=== PATIENT | male | born 1940 | race Caucasian/White ===

== ENCOUNTER → 2017-01-26 | Outpatient (CLI) | payer OTHER ==
[~2017-01-26] MED LIST: ASPI-461 PO; CHOL135C6 PO; CRG25 PO; CYAN1DRO PO; FENO134C2 PO; FURO-85 PO; GLYB5TAB8 PO; INSDGI SC; LACT1CAP6 PO; LOVAZA PO; MISCTAB78 PO; MRPSR30 PO; MULT1CHW18 PO; NRV/5 PO; OMEGCAP2 PO; ROSU20TA PO; RXC5 PO; SITA50TA3 PO
== END | disposition home or self-care (01) ==
LOC: C.PATHSPEC 17:18
PROVIDERS: ATTEND Urology
DX: C61 Malignant neoplasm of prostate (principal)

== ENCOUNTER → 2017-02-13 | Outpatient (CLI) | payer OTHER ==
--- NOTE | 2017-02-13 13:34 | DIAGNOSTIC IMAGING REPORT ---
WHOLE BODY BONE SCAN HISTORY: C61 Adenocarcinoma of prostate no latex allergy E X0D E [id number] RADIOTRACER: 26.2 mCi Tc-99m MDP STUDY/IMAGES: Planar anterior and posterior whole body imaging was performed 3 hours following the intravenous administration of radiotracer. COMPARISON: None. FINDINGS: Focal areas of radiotracer uptake seen within the bilateral AC joints, knees, ankles, and first MTP joints favors degenerative change. Vertical radiotracer uptake at the sternum consistent poststernotomy changes. Patchy areas of mild FDG uptake throughout the lumbar spine favors postoperative change. This is most pronounced at the L2 level. No additional sites of abnormal radiotracer uptake seen within the axial or appendicular skeleton. IMPRESSION: Scattered areas of radiotracer uptake as described above likely represent degenerative and/or postoperative change. No suspicious areas of radiotracer uptake identified to suggest metastatic disease. Electronically signed by: Salty Martinez M.D. 02/13/2017 1:32 PM Dictated Date/Time: 02/13/2017 1:29 PM
== END | disposition home or self-care (01) ==
LOC: C.NUCL 07:51
PROVIDERS: ATTEND Urology
DX: C61 Malignant neoplasm of prostate (principal)

== ENCOUNTER → 2017-04-18 | Outpatient (CLI) | payer OTHER ==
[~2017-04-18] MED LIST changes: -CHOL135C6 PO; -CYAN1DRO PO; -LACT1CAP6 PO; -LOVAZA PO; -MRPSR30 PO; -RXC5 PO
--- NOTE | 2017-04-18 15:59 | DIAGNOSTIC IMAGING REPORT ---
MRI OF THE PELVIS WITHOUT IV CONTRAST CLINICAL HISTORY: Prostate cancer. Space oar protocol. COMPARISON STUDY: Radiation treatment CT scan dated 04/11/2017. TECHNIQUE: MRI of the pelvis is performed utilizing various T2-weighted sequences in the axial and sagittal planes. IV contrast was not administered for this examination. The examination is degraded by motion artifact. FINDINGS: The prostate gland is enlarged and heterogeneous measuring 6.7 cm in transverse diameter. Median lobe hypertrophy is observed. There is nodularity seen throughout the gland. A T2 hypointense nodule is suggested in the right lobe and measures up to 2.0 cm. The seminal vesicles are normal as visualized. The space or material is present between the prostate gland and the rectum. There is approximately 1.7 cm of separation between the posterior prostate and the anterior wall of the rectum. The spacer gel extends approximately 5 cm in craniocaudal length. The bladder wall appears thickened and trabeculated, likely related to chronic outlet obstruction. The visualized bony structures of the pelvis are grossly unremarkable but incompletely assessed. No pelvic sidewall lymphadenopathy is identified. IMPRESSION: 1. The spacer material is in appropriate position, and there is approximately 1.7 cm separation between the prostate and the anterior wall of the rectum. 2. The prostate gland is enlarged and heterogeneous and there is evidence of chronic bladder outlet obstruction. 3. A T2 hypointense nodule is suggested in the right lobe of the prostate gland. Correlation with the patient's biopsy results will be required. Dictated: 04/18/2017 3:29 PM Transcribed: 04/18/2017 3:59 PM Justino Electronically signed by: Alejandro Sandoval M.D. 04/18/2017 4:05 PM Dictated Date/Time: 04/18/2017 3:29 PM
== END | disposition home or self-care (01) ==
LOC: C.MRI 13:32
PROVIDERS: ATTEND Physician Assistant Medical
DX: C61 Malignant neoplasm of prostate (principal); N40.0 Benign prostatic hyperplasia without lower urinary tract symptoms

== ENCOUNTER → 2017-07-13 | Outpatient (CLI) | payer OTHER ==
[2017-07-13 14:50] VITALS: BP 110/58; PULSE 48; TEMP 37; O2SAT 90
--- NOTE | 2017-07-13 15:41 | Radiation Oncology Follow-Up ---
Radiation Oncology Follow-Up Date of Visit Jul 13, 2017. Reason For Visit One-month follow-up and cancer survivorship care plan Radiation Completion Date 06/06/17 Diagnosis (1) Prostate cancer Status: Acute Onset Date: 01/26/2017 Location: right lobe of the prostate Histology Subtype: adenocarcinoma Stage: ll Permanent Comment: Rising PSA, pretreatment PSA 18.30 Status post ultrasound-guided biopsies 01/26/2017 Adenocarcinoma the prostate [place] 3+3 and 3+4 Prostate volume 52 Prostate density 0.351 Status post placement of gold fiducial markers and Space OAR 04/06/2017 Status post completion of radiation therapy with IMRT/IGRT VMAT hypo- fractionated therapy 06/06/2017. He received 7000 cGy Last Edited By: Ami León on Jun 12, 2017 10:47 History of Present Illness Mr. Yepez is without a family history of prostate cancer. He was found to have an elevated prostate-specific antigen drawn on 02/06/2017 with a value of 16.91. Patient was referred to Dr. Willis for further evaluation. His digital rectal exam revealed no evidence of induration. He ordered a repeat prostate-specific antigen which was drawn on 01/23/2017. This showed a persistent and further elevated prostate-specific antigen of 18.3. Because of these changes and after discussion of with the patient the patient was scheduled for ultrasound-guided biopsies on 01/26/2017. A total of 14 biopsies were taken. 2 biopsies from the left and right base and left mid gland and 2 biopsies in the left apex and one biopsy from the left anterior gland were benign. One of 2 biopsies from the right base were positive for adenocarcinoma [place] grade of 3+4 involving 30% of the core tissue sample with no perineural invasion identified. The [place] pattern 4 comprises 5% of the tumor present. 22 biopsies from the right apex were positive for adenocarcinoma [place] grade 3 +3 involving 20% and 5% of the core samples respectively with no perineural invasion identified. The single biopsy from the right anterior gland was positive for adenocarcinoma [place] grade 3+4 involving 45% of the core tissue sample with no perineural invasion identified. The [place] pattern 4 comprises 10% of the tumor volume. Therefore a total of 4 out of 14 biopsies were positive. All 4 biopsies were from the right gland. 2 of the 4 biopsies were [place] grade 3+3 in 2 of the biopsies were [place] grade 3+4. Case: [id number]. Dr. Willis scheduled a staging bone scan which was performed on 02/13/2017. There was some degenerative changes most pronounced at L-2 but no suspicious areas to suggest metastatic disease was appreciated. We were asked to see the patient to review with him the treatment options area is for this reason the patient was seen in referral. The options of treatment were reviewed with the patient. Ultimately his decision was to proceed with placement of gold fiducial markers/Space OAR. He then underwent treatment with IMRT/IGRT VMAT utilizing hypo-fractionation. He received 7000 cGy. This was completed on 06/06/2017. Interim History He's been doing well over this past month. He feels that he has had improvement in his urinary status. His AUA score did improve. It was 6. At the end of treatment he had an AUA score of 8. He completed expanded prostate cancer index composite for clinical practice and gave a score of one of 12 and urinary incontinence symptoms. He gave a score 1 of 12 and urinary irritation symptoms. He gave a score of one of 12 in bowel symptoms. He gave a score of 8 of 12 and sexual symptoms. To note he marked that this is not a problem. He gave a score of 0 of 12 and hormonal vitality symptoms. His total was 11 of 60. He did not require any medication to help with urination. He did not require hormone suppression. Allergies Coded Allergies: Cyclobenzaprine (Unverified Adverse Reaction, Unknown, disoriented & confused from [id number], 06/24/14) Home Medications Scheduled Amlodipine Besylate (Amlodipine Besylate), 5 MG PO DAILY Aspirin (Aspirin), 81 MG PO DAILY Carvedilol (Carvedilol), 25 MG PO BID Fenofibrate (Tricor ), 134 MG PO DAILY Furosemide (Lasix), 20 MG PO DAILY Glyburide (Micronase), 5 MG PO DAILY Insulin Glargine (Lantus), 30 UNITS SC QAM Insulin Glargine (Lantus), 26 UNITS SC QPM [facility] Natural Products (Osteo Bi-Flex Advanced Do), 1 TABS PO BID Multiple Vitamins W/ Minerals (Multivitamin Gummies Adul), 2 TAB PO DAILY [place]-3 Fatty Acids (Fish Oil), 2 CAP PO BID Rosuvastatin Calcium (Crestor), 20 MG PO DAILY Sitagliptin (Januvia), 50 MG PO DAILY Review of Systems Gastrointestinal: Symptoms: WNL Oral: Symptoms: No Problems Respiratory: Symptoms: WNL Urinary: Symptoms: WNL, Nocturia Comments: Nocturia x 2-4, See AUA & EPIC Skin: Symptoms: No Problems Additional Notes: He completed a distress management report and answered "no" to all questions. Physical Exam Vital Signs Date Time Temp Pulse Resp B/P (MAP) Pulse Ox O2 Delivery O2 Flow Rate FiO2 07/13/17 14:50 37.0 48 16 110/58 90 General Appearance: no apparent distress Eyes: normal inspection, EOMI ENT: normal ENT inspection Neck: no adenopathy, thyroid normal Respiratory/Chest: lungs clear, no respiratory distress, no accessory muscle use Cardiovascular: regular rate, rhythm, no gallop, no murmur Abdomen: non tender, soft Extremities: no pedal edema Skin: warm/dry Laboratory Studies Test 07/13/17 15:08 Assessment & Plan Plan: PSA was drawn today. He'll be notified as to results. Continue follow- up with his primary care physician and Dr. Tran. He'll be seeing Dr. Tran next month. Today we completed a cancer survivorship care plan. A copy of the document was given to the patient. He was given a survivorship booklet. We asked him to return to our office in 6 months. He may call our office if he has any questions or concerns in the interim. Total Time In Follow-Up I spent 20 minutes speaking to the patient and performing examination. I spent 20 minutes reviewing information, preparing the survivorship document, and completing this note. Copy To Jim Alvarez M.D.; Kemal Tran M.D.
== END ==
LOC: C.ONC 14:40
PROVIDERS: ATTEND Physician Assistant Medical
DX: Z08 Encounter for follow-up examination after completed treatment for malignant neoplasm (principal); Z92.3 Personal history of irradiation; Z85.46 Personal history of malignant neoplasm of prostate

== ENCOUNTER → 2018-01-10 | Outpatient (CLI) | payer OTHER ==
[~2018-01-10] MED LIST changes: +BUPR20DI TOP; +DULA0.5I SC
[2018-01-10 13:41] VITALS: BP 171/67; PULSE 64; TEMP 36.7; O2SAT 93
--- NOTE | 2018-01-11 07:47 | Radiation Oncology Follow-Up ---
Radiation Oncology Follow-Up Date of Visit Jan 10, 2018. Reason For Visit Six-month follow-up Radiation Completion Date Spaceoar, gold fiducials, and hypofractionation 06/06/17 Diagnosis (1) Prostate cancer Status: Acute Onset Date: 01/26/2017 Location: Right lobe of the prostate Histology Subtype: Adenocarcinoma Stage: ll (Biopsy stage) Permanent Comment: Rising PSA, pretreatment PSA 18.30 Status post ultrasound-guided biopsies 01/26/2017 Adenocarcinoma the prostate [place] 3+3 and 3+4 Prostate volume 52 Prostate density 0.351 Status post placement of gold fiducial markers and Space OAR 04/06/2017 No hormone suppression Status post completion of radiation therapy with IMRT/IGRT VMAT hypo- fractionated therapy 06/06/2017. He received 7000 cGy Last Edited By: Ami León on Jan 11, 2018 07:43 History of Present Illness Mr. Yepez is without a family history of prostate cancer. He was found to have an elevated prostate-specific antigen drawn on 02/06/2017 with a value of 16.91. Patient was referred to Dr. Willis for further evaluation. His digital rectal exam revealed no evidence of induration. He ordered a repeat prostate-specific antigen which was drawn on 01/23/2017. This showed a persistent and further elevated prostate-specific antigen of 18.3. Because of these changes and after discussion of with the patient the patient was scheduled for ultrasound-guided biopsies on 01/26/2017. A total of 14 biopsies were taken. 2 biopsies from the left and right base and left mid gland and 2 biopsies in the left apex and one biopsy from the left anterior gland were benign. One of 2 biopsies from the right base were positive for adenocarcinoma [place] grade of 3+4 involving 30% of the core tissue sample with no perineural invasion identified. The [place] pattern 4 comprises 5% of the tumor present. 22 biopsies from the right apex were positive for adenocarcinoma [place] grade 3 +3 involving 20% and 5% of the core samples respectively with no perineural invasion identified. The single biopsy from the right anterior gland was positive for adenocarcinoma [place] grade 3+4 involving 45% of the core tissue sample with no perineural invasion identified. The [place] pattern 4 comprises 10% of the tumor volume. Therefore a total of 4 out of 14 biopsies were positive. All 4 biopsies were from the right gland. 2 of the 4 biopsies were [place] grade 3+3 in 2 of the biopsies were [place] grade 3+4. Case: [id number]. Dr. Willis scheduled a staging bone scan which was performed on 02/13/2017. There was some degenerative changes most pronounced at L-2 but no suspicious areas to suggest metastatic disease was appreciated. We were asked to see the patient to review with him the treatment options area is for this reason the patient was seen in referral. The options of treatment were reviewed with the patient. Ultimately his decision was to proceed with placement of gold fiducial markers/Space OAR. He then underwent treatment with IMRT/IGRT VMAT utilizing hypo-fractionation. He received 7000 cGy. This was completed on 06/06/2017. Interim History He has been doing well over the past 6 months. Urinary status is stable. He gave an AUA score of 7.5. He completed and expanded prostate cancer index composite for clinical practice and gave a score of 1 of 12 and urinary incontinence symptoms. He gave a score of 1 of 12 and urinary irritation symptoms. He gave a score 3 of 12 and bowel symptoms. He gave a score of 6 of 12 and sexual symptoms. He gave a score of 1 of 12 and hormonal vitality symptoms. His total was 12 of 60. His last PSA was in June and was 2.500. This was improved from 18.30. Allergies Coded Allergies: Cyclobenzaprine (Unverified Adverse Reaction, Unknown, disoriented & confused from [id number], 06/24/14) Home Medications Scheduled Amlodipine Besylate (Amlodipine Besylate), 5 MG PO DAILY Aspirin (Aspirin), 81 MG PO DAILY Buprenorphine (Butrans), 1 PATCH TOP WK Carvedilol (Carvedilol), 25 MG PO BID Dulaglutide (Trulicity), 1.5 MG SC WK Fenofibrate (Tricor ), 134 MG PO DAILY Glyburide (Micronase), 5 MG PO DAILY Insulin Glargine (Lantus), 30 UNITS SC QAM Insulin Glargine (Lantus), 26 UNITS SC QPM [facility] Natural Products (Osteo Bi-Flex Advanced Do), 1 TABS PO BID Multiple Vitamins W/ Minerals (Multivitamin Gummies Adul), 2 TAB PO DAILY [place]-3 Fatty Acids (Fish Oil), 2 CAP PO BID Review of Systems Gastrointestinal: Symptoms: WNL GI Comments: Takes metamucil Oral: Symptoms: No Problems Respiratory: Symptoms: WNL Urinary: Symptoms: WNL Comments: 2 voids/night;Sometimes has trouble starting stream; Skin: Symptoms: No Problems Physical Exam Vital Signs Date Time Temp Pulse Resp B/P (MAP) Pulse Ox O2 Delivery O2 Flow Rate FiO2 01/10/18 13:41 36.7 64 16 171/67 93 Fatigue: None General Appearance: no apparent distress Eyes: normal inspection, EOMI ENT: normal ENT inspection, hearing grossly normal Respiratory/Chest: lungs clear, no respiratory distress, no accessory muscle use Cardiovascular: regular rate, rhythm, no gallop, no murmur Abdomen: non tender, soft, no organomegaly Anal / Rectum: Normal sphincter tone. Prostate is smooth without nodules. No rectal masses no rectal bleeding. Neurologic/Psychiatric: no motor/sensory deficits, alert, normal mood/affect Skin: warm/dry Lymphatic: no adenopathy Pain Management Patient Reports Pain: Yes Pain Location: Back Initial Pain Intensity: 4.0 Pain Management Plan He has chronic low back pain. For this he has prescriptive pain medication. Laboratory Laboratory Results: were reviewed, and pertinent findings noted below Laboratory Comments: Test 01/10/18 14:22 Prostate Specific Antigen 0.381 ng/ml (0.000-4.000) Pathology Pathology Results: were reviewed, and pertinent findings noted in HPI Imaging Imaging Studies: were reviewed, and pertinent findings noted in HPI Assessment & Plan Plan: He will be notified as to the results of his PSA. Continue regular follow -up with Dr. Tran and his primary care provider. We discussed that PSA should be checked every 6 months if not otherwise specified by Dr. Tran. We asked him to return to our office in 1 year. He may call if he has any questions or concerns in the interim. Total Time In Follow-Up I spent 20 minutes speaking to the patient in performing examination. I spent 15 minutes reviewing information and completing this note. Copy To Jim Alvarez M.D.; Kemal Tran M.D.
== END | disposition home or self-care (01) ==
LOC: C.ONC 13:35
PROVIDERS: ATTEND Physician Assistant Medical
DX: Z08 Encounter for follow-up examination after completed treatment for malignant neoplasm (principal); Z92.3 Personal history of irradiation; Z85.46 Personal history of malignant neoplasm of prostate

== ENCOUNTER 2018-05-02 07:22 | Day surgery (SDC) | payer OTHER ==
[2018-05-02] VITALS (7 sets, daily range): BP systolic 150–172; BP diastolic 71–82; PULSE 64–69; TEMP 36.7–37; O2SAT 91–95; Ht 170.2 cm; Wt 127.4 kg
[~2018-05-02] VITALS: Ht 170.2 cm; Wt 127.4 kg
[~2018-05-02 07:22] MED LIST changes: -FURO-85 PO; -ROSU20TA PO; -SITA50TA3 PO
--- NOTE | 2018-05-02 10:15 | DIAGNOSTIC IMAGING REPORT ---
LUMBAR SPINE WITH CLINICAL HISTORY: 78 years-old Male presenting with history of lumbar spinal fusion, CT myelogram. TECHNIQUE: Multidetector CT of the lumbar spine was performed after the attempted administration of intrathecal contrast IV contrast: None. A dose lowering technique was used consistent with the principles of ALARA (as low as reasonably achievable). COMPARISON: Plain radiographs from 04/18/2018. CT DOSE (mGy.cm): The estimated cumulative dose is 960.74 mGy.cm. FINDINGS: Tube Test Technician topogram: Posterior lumbar fusion hardware, median sternotomy wires, and fiducial markers in the prostate. Dextroscoliotic curvature of the lumbar spine centered at L3. Bilateral posterior transpedicular screw and tc fixation of L2-S1. Trace lucency surrounds the S1 screws. No significant heart or complication. No hardware breakage. Laminectomy defects of L2-L5. A bridging tc is noted at the level of L4-5. Extensive osseous fusion across the facet joints at the operative levels greater on the left though this does not bridge the L5-S1 level. An interbody spacer is noted at L5-S1. Contrast opacifies a seroma in the laminectomy bed. No intrathecal contrast is apparent. The surrounding the in the laminectomy bed measures 5.1 x 1.4 x 3.5 cm. Otherwise normal lordosis. Vertebral bodies maintain normal height and alignment. Significant intervertebral disc height loss at L1-2 with vacuum disc phenomenon and endplate cystic change consistent with adjacent level degenerative change. Vacuum disc phenomenon also apparent at T12-L1. Mild osseous neural foraminal narrowing at the operative levels. More significant osseous neural foraminal narrowing on the left at L1-2. Posterior bony spurring at L1-2 mildly narrows the spinal canal. Paraspinal soft tissues remarkable for atherosclerosis. Large calculus in the left renal pelvis (series 3 image 95). This measures over 3 cm in diameter. IMPRESSION: 1. Unsuccessful CT myelogram with opacification of a 5.1 x 1.4 x 3.5 cm seroma in the laminectomy bed. Further evaluation with MRI of the lumbar spine is recommended which could equally demonstrate cauda equina nerve roots. 2. Posterior lumbar fusion from L2 to S1 with laminectomy defects from L2 to L5. No significant hardware complication. 3. Multilevel degenerative changes and scoliosis with adjacent level degenerative change at L1-2 with left osseous neural foraminal narrowing. 4. Large calculus in the left renal pelvis. Electronically signed by: Simeon Oneal M.D. 05/02/2018 10:14 AM Dictated Date/Time: 05/02/2018 10:05 AM
--- NOTE | 2018-05-02 10:21 | DIAGNOSTIC IMAGING REPORT ---
MYELOGRAM,SUPER/INTER LUMBAR CLINICAL HISTORY: 78 years-old Male presenting with BACK PAIN. COMPARISON: 04/18/2018. PROCEDURE: The procedure, risks and benefits were discussed with the patient including the risk of spinal headache, bleeding and infection. The patient agreed to the procedure and informed written consent was obtained. The procedure was performed by Dr. Oneal following a timeout. The L3-4 interlaminar space was targeted. Skin overlying the space was prepped and draped in the usual aseptic fashion and local anesthesia was achieved with 1% lidocaine. Under intermittent fluoroscopic guidance, a 22-gauge x 5 in. Sprotte needle was inserted into the thecal sac. Colorless fluid was obtained, presumably CSF. Subsequently, Optiray 200 contrast was injected presumably intrathecal. After administration of 8 mL of contrast, injection was no longer possible due to resistance and the opacified region was not consistent with the thecal sac. Due to the presence of contrast within the needle, adjustment of the needle to confirm CSF return could not be performed. At this point, the procedure was terminated. The patient tolerated the procedure well. There were no immediate complications. Fluoroscopy dosage (mGy): Not available. Fluoroscopy time: 0.9 minutes. Number or time of fluoroscopic spot images: 3. IMPRESSION: 1. Unsuccessful fluoroscopic guided lumbar myelogram. Please see separately dictated CT myelogram for findings of contrast administration into a laminectomy bed seroma. Electronically signed by: Simeon Oneal M.D. 05/02/2018 10:20 AM Dictated Date/Time: 05/02/2018 10:16 AM
--- NOTE | 2018-05-02 10:24 | Discharge Instructions ---
Discharge Instructions Procedure Procedure Date: May 02, 2018. Reason for visit: Spinal Stenosis. Discharge Discharge Date: May 02, 2018. Discharge Diagnosis: Spinal stenosis; unsuccessful fluoroscopic guided lumbar myelogram Medications Restart Stopped Medication(s): Resume home meds Instructions Activity Recommendations: No limitations Return to School/Work: no limitations Recommended Home Diet: No Limitations Allergies Coded Allergies: Cyclobenzaprine (Unverified Adverse Reaction, Unknown, disoriented & confused from [id number], 05/02/18) Lukas Flores Recommendations: Call your doctor if: * Temperature above 101 degrees * Pain not relieved by pain medicine ordered * There is increased drainage or redness from any incision * You have any unanswered questions or concerns. Your Doctors Instructions noted above were prepared by provider Simeon Oneal. Patient Signature Section: Patient Instructions Signature Page Forest Yepez Patient (or Guardian) Signature/Date: I have read and understand the instructions given to me by my caregivers. Caregiver/RN/Doctor Signature/Date: The above-named patient and/or guardian has received patient instructions on this date. + Original Patient Signature Page (only) stays with chart. Please make copy for patient.
[2018-05-02] MEDS ORDERED: ACETAMINOPHEN 500 MG TAB PO PRN (10:30)
[2018-05-08] MEDS ORDERED: INSDGI SC ×2 (08:36)
[2018-05-08] MEDS ORDERED: GABA-113 PO (08:37)
[2018-05-08] MEDS ORDERED: ASCA500 PO (08:37)
== END 2018-05-02 12:10 | disposition home or self-care (01) ==
LOC: C.ACU 07:22
PROVIDERS: ATTEND Orthopaedic Surgery Orthopaedic Surgery of the Spine
DX: M48.061 Spinal stenosis, lumbar region without neurogenic claudication (principal)

== ENCOUNTER → 2018-05-11 | Outpatient (CLI) | payer OTHER ==
[~2018-05-11] MED LIST changes: +ASCA500 PO; -FENO134C2 PO; +GABA-113 PO
--- NOTE | 2018-05-11 10:19 | DIAGNOSTIC IMAGING REPORT ---
CHEST 2 VIEWS ROUTINE HISTORY: Preop. COMPARISON: Chest 06/23/2014. FINDINGS: The heart remains mildly enlarged. There are postoperative changes. The lungs are clear. No pleural effusions. No pneumothorax. IMPRESSION: No significant change compared to the prior study. No acute process. Stable mild cardiomegaly. Electronically signed by: Salty Martinez M.D. 05/11/2018 10:18 AM Dictated Date/Time: 05/11/2018 10:12 AM
[2018-05-11 12:47] LABS: INR 0.9 (0.9-1.1); PTT PATIENT 26.5 SECONDS (21.0-31.0)
== END | disposition home or self-care (01) ==
LOC: C.CPL 12:00
PROVIDERS: ATTEND Orthopaedic Surgery Orthopaedic Surgery of the Spine
DX: Z01.810 Encounter for preprocedural cardiovascular examination (principal); Z01.811 Encounter for preprocedural respiratory examination; Z01.812 Encounter for preprocedural laboratory examination; I44.0 Atrioventricular block, first degree; I45.10 Unspecified right bundle-branch block

== ENCOUNTER 2018-10-18 15:33 | Inpatient (IN) ==
[2018-10-18] MEDS ORDERED: NITROGLYCERIN SL 0.4 MG/TAB TAB SL PRN (17:53)
[2018-10-18] MEDS ORDERED: MoRPHine SULFATE 4 MG/ML 1 ML CARP\\VIAL IV PRN (17:53)
[2018-10-18] MEDS ORDERED: GLUCOSE 10 TABS/TUBE PO PRN (17:59)
[2018-10-18] MEDS ORDERED: CARBOHYDRATES FOR HYPOGLYCEMIA PO PRN (17:59)
[2018-10-18] MEDS ORDERED: GLUCAGON FOR INJ 1 MG VIAL SQ PRN (17:59)
[2018-10-18] MEDS ORDERED: GLUCOSE 40% GEL 15 GM TUBE PO PRN (17:59)
[2018-10-18 18:49] LABS: HCO3 ABG 25 mmol/L (19-24); Oxygen Saturation ABG 94.1 % (90-95); PCO2 ABG 61 mmHg (35-46); PO2 ABG 91 mm/Hg (80-95); pH ABG 7.24 (7.35-7.45)
[2018-10-18 18:50] LABS: Allen Test Pos (Pos)
[2018-10-18 18:58] LABS: Appearance Urine Turbid (Clear); Bacteria Urine Automated Negative (Negative); Bilirubin Urine Negative (Negative); Color Urine Yellow; Epithelial Cell Urine Auto 20-30 /lpf (0-5); Glucose Urine UA Negative (Negative); Ketones Urine Negative (Negative); Leukocyte Esterase Urine 3+ (Negative); Nitrite Urine Negative (Negative); Protein Urine Trace (Negative); Urobilinogen Urine Negative (Negative); WBC Urine Automated >30 /hpf (0-5)
--- NOTE | 2018-10-18 18:59 | History & Physical Report ---
Date of Service October 18, 2018 Assessment & Plan (1) Respiratory acidosis: Patient has repeat blood gas showing a respiratory acidosis with PCO2 of 61 and a pH of 7.24 is a non-anion gap acidosis which likely plans to believe this might be respiratory turner. Patient is obese and this could be based upon hypoventilation from obesity. He has no history of smoking that he relates. Patient be placed on BiPAP attempts to improve his monoxide and pH level repeat an ABG in the morning it is expected that his potassium will improve with his acidosis improving. I did spend 90 minutes of critical care time were spent on this patient in the unit talking to his family calling [facility] examining the patient reviewing records (2) Pyelonephritis: Patient reportedly has acute pyelonephritis of blood and urine cultures positive for E. coli cultures were not sent with his initial pack and I did personally phoned the [place] [facility] which they will fax the sensitivities back for the E. coli. We will put on cefepime renal dose adjusted until that time (3) Acute on chronic renal failure: Patient prevent presents with acute nonoliguric renal failure at this time with a BUN of 100 creatinine is 2.4 I did speak with Dr. Saenz cook mayonnaise tonight and he would suggest we place the patient on half-normal saline with bicarbonate will have a Woodson catheter to quantify urine output and repeat urinalysis to look for sediment. (4) Hydronephrosis with renal calculous obstruction: Reportedly the patient has mild hydronephrosis without complete obstruction seen at [facility] repeat ultrasound will be undertaken. Patient recently had an instrumentation and cystoscopy and lithotripsy with stent placement on October [address] Kevin Tran will be consulted in the morning (5) Anemia: Patient did did have reduction of his hemoglobin from 10 g 8g after his stay located hospital this was over the time span from October 16-. Certainly his elevation of his BUN could be from GI blood absorption he will be placed on Protonix 40 twice daily heme occult stools and have a hemoglobin checked at 0300 hrs. (6) Diabetes mellitus, type 2: Patient typically takes Lantus and Trulicity for blood pressure control there is some documentation that he may have may or may not be on glyburide also. He will be placed on Lantus and sliding scale his Lantus dose will be reduced given his renal dysfunction to 10 twice a day with sliding scale and carb coverage (7) Encephalopathy: Patient has encephalopathy initially was thought to be secondary to infectious etiologies or perhaps his acidosis however his upon arrival relates that he became altered after his cystoscopy where he was having falls at home and not able to walk. He was in a wheelchair for some time. He does have a history of recent back surgery in the fall 2018. He has no focal deficits and he is is globally confused upon my evaluation. His does not believe he is ever had any imaging of his brain a CT scan will be ordered (8) DVT prophylaxis: Given concerns of any intracranial issues SCDs will use this evening and if it is CT and is negative we will employ likely renal based heparin (9) Coronary artery disease: Patient has history of coronary artery disease will be maintained on his carvedilol and amlodipine aspirin was previously on his med reconciliation this would continue 81 mg daily History of Present Illness Primary Care Provider: Jim Alvarez M.D. Patient presented to [place] emergency department with left flank pain 1 week after having a lithotripsy and stent placement by Dr. Tran of his left kidney. The patient reportedly his stated had been confused since the lithotripsy at home where he been falling and been unable to walk. On arrival to the ER they were concerned the patient may have sepsis although his lactic acid was 0.8. He is white count was 12 he had no anion gap bicarb 22 but his BUN/creatinine was 76 and 1.49. Patient was brought to their facility hydrated with saline at 130 cc an hour given Zosyn initially and 1 dose of Solu-Medrol in the ER because you had some tachypnea and he was given duo nebs although he has no history of tobacco use. Over the 2 days a [facility] is creatinine went from 1.49-2.37, BUN from went from 76-103, there is no notation of melena, his hemoglobin did drop from 10 g to 8 g B was hydrated. White blood cell count came down from 12-10. Reportedly there was an E. coli cultures that were positive although these were not since I can easily see and I asked him to be recent by fax. According to the after this confusion episode which occurred after the cystoscopy the patient she cannot recall having had any cranial imaging and the CT scan is currently pending Upon my interaction with the patient he is pleasant he is confused he looks to have word searching problems he can have some light conversation. He has no focal deficits no facial droop no palmar drift Allergies Allergy/AdvReac Type Severity Reaction Status Date / Time cyclobenzaprine AdvReac Severe disoriented Verified 10/09/18 08:15 & confused from [id number] Home Medications Home Medications Medication Instructions Recorded Confirmed Type amlodipine 5 mg PO QAM 06/11/18 10/18/18 History aspirin [Aspir-81] 81 mg PO QAM 06/11/18 10/18/18 History carvedilol 25 mg PO BID 06/11/18 10/18/18 History dulaglutide [Trulicity] 1 dose SUBCUT WK 06/11/18 10/18/18 History glyburide 5 mg PO QAM 06/11/18 10/18/18 History insulin glargine 26 unit SUBCUT HS 06/11/18 10/18/18 History insulin glargine 30 unit SUBCUT QAM 06/11/18 10/18/18 History omega 0-ivy-ejk-fish oil [[place]-3] 1 dose PO BID 06/11/18 10/18/18 History glucosamine-chondroitin [Osteo 2 tab PO BID 08/23/18 10/18/18 History Bi-Flex] Justyna-C with Bioflavonoids 1 g PO BID 10/18/18 10/18/18 History mineral oil PO 10/18/18 History Past Med/Surg History Social History Current Living Situation: Spouse Current Living Situation Comment: CURRENTLY AT [facility] POST OP BACK FUSION 08/02/18 TILL 08/24/18 Other Information That Helps Us Care for You: No Feels Safe at Home: Yes Safety Concerns: Feels Safe At This Time Smoking Status: Never smoker Do You Dip or Chew Tobacco: No Second Hand Exposure: No Tobacco Cessation Education Requested by Patient: No Hx Alcohol Use: No Hx Substance Use: No Beliefs That Will Affect Care: None Communication Ability: Effective Vineyard Supervisor Required: No Review of Systems ROS: Weak tired left flank pain No double vision blurry vision No problems with swallowing word finding issues No palpitations, chest pain or pressure No Wheezing or breathing issues by his complaint reportedly was tachypnea on presentation located in Left flank pain but no nausea vomiting diarrhea changes in appetite or weight No burning urine urine frequency or changes in color No focal joint pain or muscle pain No skin rashes or oral lesions No unusual bruising or bleeding No focused back pain or numbness or loss of strength Poorly more confused since 09 October Physical Exam 2 Vital Signs (Past 24 Hours): The patient appeared well nourished and normally developed. He is morbidly obese he does not appear to be in any significant distress Vital signs as documented. Head exam is unremarkable. normocephalic, atraumatic PERRLA EOMI oropharynx is clear is no exudate Neck is without jugular venous distension, thyromegaly, or lymphademopathy Lungs are clear generally poor air movement no wheezes Cardiac exam reveals Rhythm is regular. First and second heart sounds normal. Abdominal exam reveals normal bowel sounds, no masses, no organomegaly he is distended and tympanitic but not tender or guarding Extremities are only with trace edema bilateral lower extremities and both pedal pulses are present Neurologic exam is A&Ox1 he notes is in the hospital but does not no wheezing [place], no focal deficits, strength is equal bilateral no facial droop no palmar drift no decrease in strength of arms or legs Psychologically he is aware of his deficits and frustrated Skin is warm Dry without bruises or lesions
[2018-10-18] MEDS ORDERED: SODIUM CHLORIDE 0.9% 1000ML 1,000 ML IV SCH (19:00)
[2018-10-18 19:02] LABS: BUN Creatinine Ratio 41.5 (10-20); Blood Urea Nitrogen 105 mg/dl (7-18); Calcium 8.2 mg/dl (8.5-10.1); Carbon Dioxide 24 mmol/L (21-32); Chloride 107 mmol/L (98-107); Est GFR (African American) 27.3; Est GFR (Non-African American) 23.5; Glucose 132 mg/dl (70-99); Potassium 5.7 mmol/L (3.5-5.1); Sodium 138 mmol/L (136-145)
[2018-10-18 19:14] LABS: Calcium Oxalate Crystals Urine Present (None Prsent)
--- NOTE | 2018-10-18 19:59 | CT Scan Report ---
CT head/brain wo con CLINICAL HISTORY: 78 years-old Male with eval for stroke. Acute strokelike symptoms TECHNIQUE: Multiple axial CT images of the head were obtained without contrast. A dose lowering tech nique was utilized adhering to the principles of ALARA. CT DOSE: 1642.00 mGycm COMPARISON: None. FINDINGS: Motion degraded exam. No acute intracranial hemorrhage, midline shift, intracranial mass, hydrocephal us, territorial ischemia or abnormal extra-axial collection. Ill-defined hypodensities about the whit e matter suggest chronic microvascular ischemic changes. Cerebral vascular calcifications also noted. Mild age-related involutional changes. The calvarium is intact. Mild mucosal thickening of the posterior ethmoid air cells. Mastoid air sara ls and remaining paranasal sinuses appear generally clear. The soft tissues and orbits are unremarkab le. IMPRESSION: Motion degraded exam without acute intracranial abnormality identified. The above report was generated using voice recognition software. It may contain grammatical, syntax o r spelling errors. Electronically signed by: Ian Smyth M.D. 10/18/2018 7:58 PM
--- NOTE | 2018-10-18 20:39 | Ultrasound Report ---
US renal/blad retro comp HISTORY: 78 years-old Male eval for hyro and possible pyleo acute bilateral flank pain COMPARISON: CT abdomen and pelvis 08/06/2018 TECHNIQUE: Multiple real-time sonographic images of the kidneys and urinary bladder were obtained ass essing grayscale appearance and color flow FINDINGS: Right kidney measures 13.4 cm in length and demonstrates mild diffuse cortical thinning without renal calculi, hydronephrosis or suspicious mass lesions. Left kidney measures 13.8 cm in length and demonstrates mild hydronephrosis and minimal diffuse corti gwendolyn thinning. There are several echogenicities with posterior acoustic shadowing noted about the left kidney measuring up to 1.0 cm suggestive of nephrolithiasis. Previously described left ureteral sten t is not definitively seen. Woodson catheter noted within a decompressed or bladder lumen. There is suggestion of mild intrahepatic biliary ductal prominence. IMPRESSION: 1. Mild left-sided hydronephrosis with multiple nonobstructing renal calculi noted. 2. Unremarkable sonographic appearance of the right kidney. 3. Decompressed urinary bladder with Woodson catheter in place. The above report was generated using voice recognition software. It may contain grammatical, syntax o r spelling errors. Electronically signed by: Ian Smyth M.D. 10/18/2018 8:38 PM
[2018-10-18] MEDS: CARVEDILOL 25 MG TAB PO SCH (20:51)
[2018-10-18] MEDS: SODIUM BICARBONATE 8.4% 75 MEQ in SODIUM CHLORIDE 0.45 % 1,000 ML IV SCH (21:00)
[2018-10-18] MEDS: CEFEPIME 1,000 MG in SYRINGE 0 ML IV SCH ×2 (21:30→21:44)
[2018-10-18] MEDS: PANTOprazole 40 MG in SYRINGE 0 ML IV SCH (21:30)
[2018-10-18] MEDS: INSULIN GLARGINE SOLOSTAR 100 UNITS/ML 3 ML PEN SC SCH (21:54)
[2018-10-18] MEDS: INSULIN ASPART 100 UNITS/ML 3 ML PEN SC SCH (21:54)
[2018-10-18] MEDS ORDERED: INFLUENZA VACCINE HIGH DOSE 65+ 0.5 ML SYR IM ONE (22:00)
[2018-10-18] MEDS ORDERED: INFLUENZA ADMINISTRATION CHARGE ONE (22:00)
[2018-10-18] MEDS ORDERED: PNEUMOCOCCAL POLYSACCHARIDES 25 MCG/0.5 ML VIAL/SYR IM ONE (22:00)
[2018-10-18] MEDS ORDERED: PNEUMOCOCCAL ADMINISTRATION CHARGE ONE (22:00)
[2018-10-18] MEDS ORDERED: LORazepam 0.5 MG/1 ML VIAL IV PRN (23:33)
[2018-10-19 03:31] LABS: Hematocrit (blood only) 29.1 % (42-52); Hemoglobin 8.7 g/dL (14.0-18.0); Mean Corpuscular Hgb Conc 29.9 g/dL (32-36); Mean Corpuscular Volume 91.5 fL (80-100); Mean Platelet Volume 9.9 fL (7.4-10.4); Nucleated RBC # (auto) 0.05 K/uL (0-0); Nucleated RBC % (auto) 0.5 %; Platelet Count 267 K/uL (130-400); RDW Coefficient of Variation 17.2 % (11.5-14.5); RDW Standard Deviation 57.1 fL (36.4-46.3); Red Blood Count 3.18 M/uL (4.7-6.1); White Blood Count 10.19 K/uL (4.8-10.8)
[2018-10-19 03:32] LABS: BUN Creatinine Ratio 43.3 (10-20); Calcium 8.3 mg/dl (8.5-10.1); Est GFR (African American) 31.3; Potassium 5.2 mmol/L (3.5-5.1)
[2018-10-19 05:55] LABS: Estimated Average Glucose 177 mg/dl
[2018-10-19] MEDS: SODIUM BICARBONATE 8.4% 75 MEQ in SODIUM CHLORIDE 0.45 % 1,000 ML IV SCH ×3 (06:17→23:40)
--- NOTE | 2018-10-19 07:31 | Hospitalist Progress Note ---
Date of Service October 19, 2018 Assessment & Plan (1) Respiratory acidosis: Patient blood gas showing a respiratory acidosis with PCO2 of 61 and a pH of 7.24 is a non-anion gap acidosis. The patient was placed on BiPAP ABG pending. He does not be appear to be in respiratory distress (2) Pyelonephritis: Patient reportedly has acute pyelonephritis of blood and urine cultures positive for E. coli cultures initiated on cefepime renal dose adjusted until that time. Ultrasound does not show obstruction of the left ureter just some residual stone debris (3) Acute on chronic renal failure: Patient prevent presents with acute nonoliguric renal failure at this time with a BUN of 100 creatinine is 2.4 patient was maintained on half-normal saline with 75 mEq of sodium bicarbonate in it. Overnight his his BUN only reduced to 98 creatinine is about the same at 2.26 (4) Hydronephrosis with renal calculous obstruction: Reportedly the patient has mild hydronephrosis without complete obstruction seen at [facility] repeat ultrasound there is also significant abnormalities there is some mild hydronephrosis and residual stone debris we will consult Dr. Tran (5) Anemia: Patient's hemoglobin is 8.7 here will follow this for stability.. Certainly his elevation of his BUN could be from GI blood absorption he will be placed on Protonix 40 twice daily heme occult stools and have a hemoglobin checked at 0300 hrs. (6) Diabetes mellitus, type 2: Patient typically takes Lantus and Trulicity for blood pressure control there is some documentation that he may have may or may not be on glyburide also. He will be placed on Lantus and sliding scale his glucoses have been low overnight will further reduce his Lantus dose but continue with sliding scale (7) Encephalopathy: Patient has encephalopathy initially was thought to be secondary to infectious etiologies or perhaps his acidosis however his upon arrival relates that he became altered after his cystoscopy where he was having falls at home and not able to walk. He was in a wheelchair for some time. He does have a history of recent back surgery in the fall 2018. His brain a CT scan did not show significant deficits (8) DVT prophylaxis: Given concerns of any intracranial issues SCDs will use this evening and if it is CT and is negative we will employ likely renal based heparin (9) Coronary artery disease: Patient has history of coronary artery disease will be maintained on his carvedilol and amlodipine aspirin was previously on his med reconciliation this would continue 81 mg daily Subjective pt remains confused this am on Bipap, hgb has been stable only minimal improvement with regard to his renal numbers Review of Systems ROS: well nourished well developed. Review of systems is clouded due to patient's altered cognitive status No double vision blurry vision No problems with speech or swallowing No palpitations, chest pain or pressure He claims to feel short of breath No abdominal pain nausea vomiting diarrhea changes in appetite or weight No burning urine urine frequency or changes in color claims to continue have left flank pain No focal joint pain or muscle pain No skin rashes or oral lesions No unusual bruising or bleeding No focused back pain or numbness or loss of strength Remains confused Physical Exam 2 Vital Signs (Past 24 Hours): Last Vital Signs Temp 36.7 C 10/19/18 07:14 Pulse 61 10/19/18 07:14 Resp 20 10/19/18 07:14 BP 138/55 L 10/19/18 07:14 Pulse Ox 92 10/19/18 07:14 The patient appeared well nourished and normally developed. Morbidly obese Vital signs as documented. Wearing BiPAP Head exam is unremarkable. normocephalic, atraumatic Neck is without jugular venous distension, thyromegaly, or lymphademopathy Lungs are coarse in all lung brush no diminished breath sounds no wheezes Cardiac exam reveals Rhythm is regular. First and second heart sounds normal. Abdominal exam reveals normal bowel sounds, no masses, no organomegaly still with some left CVA tenderness Extremities are mildly edematous and both pedal pulses are present Neurologic exam is A&Ox1 think she is in [place], no focal deficits, strength is equal bilateral Psychologically seems anxious and confused Skin is warm Dry without bruises or lesions
[2018-10-19 07:36] LABS: Allen Test Pos (Pos); HCO3 ABG 27 mmol/L (19-24); Oxygen Saturation ABG 91.4 % (90-95); PCO2 ABG 53 mmHg (35-46); PO2 ABG 76 mm/Hg (80-95); pH ABG 7.32 (7.35-7.45)
[2018-10-19] MEDS: DEXTROSE 50% 50 ML SYRINGE IV PRN ×2 (07:44→11:10)
[2018-10-19] MEDS: INSULIN ASPART 100 UNITS/ML 3 ML PEN SC SCH ×4 (08:26→20:07)
--- NOTE | 2018-10-19 09:09 | Urology Consultation ---
Date of Consultation October 19, 2018 Assessment & Plan (1) Nephrolithiasis, uric acid: (2) Pyelonephritis: (3) Acute on chronic renal failure: 78yoM s/p staged L URS/LL on 10/09, +UA, E.Coli bacteremia, acute delirium and respiratory decompensation. Worsening confusion/delirium post operatively, presented to [facility] then transferred to [facility] last evening for escalation of care. Left ureteral stent in place. Renal U/S reviewed: mild left hydro, tiny nonobstructive stone fragments present but largely debulked. Lawson placed in [place] per RN for acute urinary retention. Draining hazy yellow urine with crystals/sediment. Recommend maintain catheter for at least 10-14days. Appears patient status has decompensated since last evening. Agree to keep on broad spectrum abx as prescribed. Cr peaked at 2.52 yesterday and beginning to trend down. Appreciate nephrology's input. Will discuss with primary Urologist, Dr. Tran. Review records from [place], does not appear to have repeat abdominal imaging. Pt may benefit from CT abd/pelvis to assess for abscess formation vs infected spinal instrumentation. No surgical intervention at this time. Will continue to monitor and treat medically at this time. Thank you for allowing us to participate in the care of Mr. Yepez. We will continue to follow with primary service. Please see additional comments per my attending physician as indicated. History of Present Illness Reason for Consultation: S/p staged Left URS, LL with ureteral stent, complicated UTI, SRAVANI. Very large, obstructive 3cm x2cm L UPJ/ renal pelvic stone initially discovered during hospitalization for spine surgery mid-July. Acute stent placement performed on 08/06. Subsequent staged Left URS, LL with stent exchange on 09/04 and 10/09/[address] Tran to debulk large uric acid calculi. Preop UC&S positive for quinolone resistant E.Coli, treated with cefuroxime based on sensitivities. Tolerated procedure well. Discharged home in stable condition. Patient presented to [place] emergency department with left flank pain, confusion/disorientation and falls/ambulatory disfunction. CT negative for acute CVA. Per report patient was in acute retention at time of ED admission, lawson catheter in place. Two days in [place], noted progressive elevation of CR/BUN, some improved WBC. BC + E.coli through [facility]. Awaiting faxed report per primary team. Transferred to [facility] for escalation in care on 10/18 around 1900. History received from daytime RN as patient's status has appeared to decline overnight. Pt went from lightly confused to acute delirium associated with low BG which was appropriately corrected. However patient continues to be confused, requiring BIPAP for acidosis. Requiring 1:1 sitter for safety. Requesting Physician: Dr. Herring Attending Physician: Dino Herring MD History of Present Illness Mr. Yepez is a 78yo M established with Dr. Tran who presented to [facility] for acute mental status changes. Allergies Allergy/AdvReac Type Severity Reaction Status Date / Time cyclobenzaprine AdvReac Severe disoriented Verified 10/09/18 08:15 & confused from [id number] Home Medications Home Medications Medication Instructions Recorded Confirmed Type amlodipine 5 mg PO QAM 06/11/18 10/18/18 History aspirin [Aspir-81] 81 mg PO QAM 06/11/18 10/18/18 History carvedilol 25 mg PO BID 06/11/18 10/18/18 History dulaglutide [Trulicity] 1 dose SUBCUT WK 06/11/18 10/18/18 History glyburide 5 mg PO QAM 06/11/18 10/18/18 History insulin glargine 26 unit SUBCUT HS 06/11/18 10/18/18 History insulin glargine 30 unit SUBCUT QAM 06/11/18 10/18/18 History omega 0-elj-axz-fish oil [[place]-3] 1 dose PO BID 06/11/18 10/18/18 History glucosamine-chondroitin [Osteo 2 tab PO BID 08/23/18 10/18/18 History Bi-Flex] Justyna-C with Bioflavonoids 1 g PO BID 10/18/18 10/18/18 History mineral oil PO 10/18/18 History Patient History Medical History History of difficult intubation L2-S1 fusion 06/19/2014 - "poor visualization with MAC 4. Glidescope #4 utilized. Lg tongue with much soft tissue." Atrial fibrillation Anemia CHRONIC; BASELINE HGB 9-10 RANGE PER CHART REVIEW History of blood transfusion POST-OP CKD (chronic kidney disease) CREATININE BASELINE ~1.6 PER PCP History of atrial fibrillation S/P RADIOFREQUENCY ABLATION (2011) Dyslipidemia Prostate cancer (01/26/17) Hypertension Hx of atrial flutter 4:1 AV CONDUCTION Hx of sleep apnea NO DEVICE ("REFUSES CPAP") Diabetes mellitus, type 2 IDDM Osteoarthritis Spinal stenosis History of kidney stones Carotid artery stenosis S/P LEFT CEA (2006) Morbid obesity Coronary artery disease CABG x 2 (2006) Gout Hydronephrosis Surgical History H/O cardiac radiofrequency ablation S/P carotid endarterectomy LEFT (2006) S/P CABG x 2 (2006)- FRANCO-LAD; LAD-D1 SUB BRANCH History of cystoscopy WITH STENT= 08/06/18= MAC SEDATION AT [facility] History of open reduction and internal fixation (ORIF) procedure BILAT ANKLE - 1960'S History of lumbar fusion Family History Grandmother Diabetes Other Alzheimer disease Prostate cancer Social History Current Living Situation: Spouse Current Living Situation Comment: CURRENTLY AT [facility] POST OP BACK FUSION 08/02/18 TILL 08/24/18 Other Information That Helps Us Care for You: No Feels Safe at Home: Yes Safety Concerns: Feels Safe At This Time Smoking Status: Never smoker Do You Dip or Chew Tobacco: No Second Hand Exposure: No Tobacco Cessation Education Requested by Patient: No Hx Alcohol Use: No Hx Substance Use: No Beliefs That Will Affect Care: None Communication Ability: Effective Comb Setter Required: No Review of Systems unable to perform due to patient's acute delirium Physical Exam 2 Vital Signs (Past 24 Hours): Last Vital Signs Temp 36.7 C 10/19/18 07:14 Pulse 61 10/19/18 07:14 Resp 20 10/19/18 07:14 BP 138/55 L 10/19/18 07:14 Pulse Ox 92 10/19/18 07:14 Constitutional: + ill appearing and + obese Neck: trachea midline Respiratory: + labored breathing (requiring bipap); no tripod positioning Cardiovascular: Vessels: no JVD Gastrointestinal (Abdomen): Inspection/Auscultation: abdomen not distended Musculoskeletal: Head/Neck/Chest: normocephalic Skin: no rashes, warm and dry (in exposed areas) Neurologic: + confused Motor/Sensory: + tremor Psychiatric: Orientation: + not oriented x 3 and + uncooperative Eye Contact: + poor eye contact Genitourinary: lawson catheter draining hazy yellow with sediment
[2018-10-19] MEDS: CARVEDILOL 25 MG TAB PO SCH ×2 (10:35→20:06)
[2018-10-19] MEDS: ASPIRIN 81 MG ECTAB PO SCH (10:35)
[2018-10-19] MEDS: INSULIN GLARGINE SOLOSTAR 100 UNITS/ML 3 ML PEN SC SCH (10:36)
[2018-10-19] MEDS: AMLODIPINE BESYLATE 5 MG TAB PO SCH (10:36)
[2018-10-19] MEDS: ALLOPURINOL 300 MG TAB PO SCH (10:36)
[2018-10-19] MEDS: PANTOprazole 40 MG in SYRINGE 0 ML IV SCH ×2 (11:00→20:08)
--- NOTE | 2018-10-19 11:52 | Hospitalist Progress Note ---
Date of Service October 19, 2018 Assessment & Plan (1) Respiratory acidosis: Patient blood gas showing a respiratory acidosis with PCO2 of 61 and a pH of 7.24 is a non-anion gap acidosis. The patient was placed on BiPAP ABG pending. He does not be appear to be in respiratory distress (2) Pyelonephritis: Patient reportedly has acute pyelonephritis of blood and urine cultures positive for E. coli cultures initiated on cefepime renal dose adjusted until that time. Ultrasound does not show obstruction of the left ureter just some residual stone debris (3) Acute on chronic renal failure: acute on chronic kidney disease stage 3 Patient prevent presents with acute nonoliguric renal failure at this time with a BUN of 100 creatinine is 2.4 patient was maintained on half-normal saline with 75 mEq of sodium bicarbonate in it. Overnight his his BUN only reduced to 98 creatinine is about the same at 2.26 (4) Hydronephrosis with renal calculous obstruction: Reportedly the patient has mild hydronephrosis without complete obstruction seen at [facility] repeat ultrasound there is also significant abnormalities there is some mild hydronephrosis and residual stone debris we will consult Dr. Tran (5) Anemia: Patient's hemoglobin is 8.7 here will follow this for stability.. Certainly his elevation of his BUN could be from GI blood absorption he will be placed on Protonix 40 twice daily heme occult stools and have a hemoglobin checked at 0300 hrs. (6) Diabetes mellitus, type 2: Patient typically takes Lantus and Trulicity for blood pressure control there is some documentation that he may have may or may not be on glyburide also. He will be placed on Lantus and sliding scale his glucoses have been low overnight will further reduce his Lantus dose but continue with sliding scale (7) Encephalopathy: Patient has encephalopathy initially was thought to be secondary to infectious etiologies or perhaps his acidosis however his upon arrival relates that he became altered after his cystoscopy where he was having falls at home and not able to walk. He was in a wheelchair for some time. He does have a history of recent back surgery in the fall 2018. His brain a CT scan did not show significant deficits (8) DVT prophylaxis: Given concerns of any intracranial issues SCDs will use this evening and if it is CT and is negative we will employ likely renal based heparin (9) Coronary artery disease: Patient has history of coronary artery disease will be maintained on his carvedilol and amlodipine aspirin was previously on his med reconciliation this would continue 81 mg daily Physical Exam 2 Vital Signs (Past 24 Hours): Last Vital Signs Temp 36.7 C 10/19/18 07:14 Pulse 59 L 10/19/18 11:29 Resp 26 H 10/19/18 11:29 BP 151/56 H 10/19/18 11:29 Pulse Ox 91 10/19/18 11:29
[2018-10-19 14:30] LABS: HCO3 ABG 28 mmol/L (19-24); Oxygen Saturation ABG 92.6 % (90-95); PCO2 ABG 63 mmHg (35-46); PO2 ABG 77 mm/Hg (80-95); pH ABG 7.26 (7.35-7.45)
[2018-10-19 14:52] LABS: Allen Test Pos (Pos)
[2018-10-19 15:52] LABS: BUN Creatinine Ratio 52.7 (10-20); Bilirubin Direct 0.1 mg/dl (0-0.2); Calcium 8.3 mg/dl (8.5-10.1); Creatinine Clr Calc Pharmacy 47.3 ml/min; Est GFR (African American) 42.3; Est GFR (Non-African American) 36.5; Potassium 5.1 mmol/L (3.5-5.1)
[2018-10-19 15:55] LABS: Bilirubin,Total 0.2 mg/dl (0.2-1); Phosphorus 5.1 mg/dl (2.5-4.9); Total Protein 6.4 gm/dl (6.4-8.2)
--- NOTE | 2018-10-19 16:14 | Nephrology Consultation ---
Date of Consultation October 19, 2018 Assessment & Plan (1) Acute on chronic renal failure: -- Baseline creatinine ~1.3 mg/dL -- Non-oliguric -- Urine sediment notable for 3+ blood, >30 WBC, 5-10 RBC, epithelial cells, granular cast, calcium oxalate crystals and yeast. Repeat culture pending -- Clinical presentation consistent with prerenal azotemia related to decreased EAV as well as ATN -- Left ureteral stent in place and no significant evidence of persistent obstruction -- Woodson catheter remains intact due to urinary retention -- Creatinine is now showing early evidence of renal recovery -- Urology consultation reviewed -- Continue IVF with HCO3 @ 100 ml/hr to maintain slightly positive fluid balance -- Document I/O's -- Repeat metabolic profile tomorrow AM -- Medications are currently appropriately dosed for kidney dysfunction -- There is no current indication for DECALER -- Uremic encephalopathy is not considered likely -- BUN/creatinine are disproportionate and suspicion for a concurrent etiology for elevated BUN (such as GI bleed) should be maintained (2) Pyelonephritis: -- Blood and urine cultures from OSH reportedly positive for E coli -- Currently being treated with ceftriaxone (3) Nephrolithiasis, uric acid: (4) Respiratory acidosis: -- Improving with PPV (5) Atrial fibrillation: -- Edematous but no evidence of decompensated CHF (6) Encephalopathy: -- Unlikely to be acute uremic -- Certainly concerning for metabolic encephalopathy and complicated by sepsis, hypercarbia, renal failure and medications -- Close clinical monitoring and high index of suspicion for other causes is important -- Neurochecks frequently History of Present Illness Reason for Consultation: Acute on chronic renal insufficiency Requesting Physician: Dino Herring MD Attending Physician: Dino Herring MD History of Present Illness Mr. Forest Yepez is a 78-year-old male with obesity, coronary artery disease (history of CABG), diabetes mellitus, hypertension, spinal stenosis (history of lumbar fusion) and history of nephrolithiasis. He has evidence of CKD with a baseline creatinine of 1.1 to 1.3 mg/dL. A large obstructing left UPJ stone was discovered during hospitalization for spine surgery mid-July. Acute stent placement was performed on 08/06. Dr. Tran then performed subsequent staged left ureteroscopy with laser lithotripsy with stent exchange on 09/04 and 10/09/18. Stone analysis consistent with uric acid formation. There was a preoperative urine culture positive for quinolone resistant E.Coli, treated with cefuroxime. Forest unfortunately developed progressive mental status changes and recurrent falls at home after the surgery. He presented to the ED at [facility] for additional evaluation. Urinary retention was noted and Woodson placed. IVF provided with saline at a rate of 130 ml/hr. Laboratory studies were notable for acute renal insufficiency, leukocytosis. UA/culture consistent with E coli UTI. Blood cultures were also positive for E coli. Unfortunately, encephalopathy persists. Improvement in kidney function was not noted with treatment. The patient was transferred to [facility] yesterday evening for additional care. I discussed the case with Dr. Herring yesterday evening. The patient was started on an infusion of 1/2NS+75 mEq HCO3. He has been tolerating fluids well. He was found to be in acute hypercapneic respiratory failure and non-invasive positive pressure ventilation has been provided overnight. Unfortunately, the patient remained significantly encephalopathic this morning and unable to provide any medical history. A 1:1 assist was at the bedside. No significant improvement in the patient's mental status had been noted. Head CT was notably unremarkable. Forest is non-oliguric. Creatinine is showing early evidence of renal recovery at this time. Allergies Allergy/AdvReac Type Severity Reaction Status Date / Time cyclobenzaprine AdvReac Severe disoriented Verified 10/09/18 08:15 & confused from [id number] Home Medications Home Medications Medication Instructions Recorded Confirmed Type amlodipine 5 mg PO QAM 06/11/18 10/18/18 History aspirin [Aspir-81] 81 mg PO QAM 06/11/18 10/18/18 History carvedilol 25 mg PO BID 06/11/18 10/18/18 History dulaglutide [Trulicity] 1 dose SUBCUT WK 06/11/18 10/18/18 History glyburide 5 mg PO QAM 06/11/18 10/18/18 History insulin glargine 26 unit SUBCUT HS 06/11/18 10/18/18 History insulin glargine 30 unit SUBCUT QAM 06/11/18 10/18/18 History omega 8-rdy-xfl-fish oil [[place]-3] 1 dose PO BID 06/11/18 10/18/18 History glucosamine-chondroitin [Osteo 2 tab PO BID 08/23/18 10/18/18 History Bi-Flex] Justyna-C with Bioflavonoids 1 g PO BID 10/18/18 10/18/18 History mineral oil PO 10/18/18 History Patient History Medical History History of difficult intubation L2-S1 fusion 06/19/2014 - "poor visualization with MAC 4. Glidescope #4 utilized. Lg tongue with much soft tissue." Atrial fibrillation Anemia CHRONIC; BASELINE HGB 9-10 RANGE PER CHART REVIEW History of blood transfusion POST-OP CKD (chronic kidney disease) CREATININE BASELINE ~1.6 PER PCP History of atrial fibrillation S/P RADIOFREQUENCY ABLATION (2011) Dyslipidemia Prostate cancer (01/26/17) Hypertension Hx of atrial flutter 4:1 AV CONDUCTION Hx of sleep apnea NO DEVICE ("REFUSES CPAP") Diabetes mellitus, type 2 IDDM Osteoarthritis Spinal stenosis History of kidney stones Carotid artery stenosis S/P LEFT CEA (2006) Morbid obesity Coronary artery disease CABG x 2 (2006) Gout Hydronephrosis Surgical History H/O cardiac radiofrequency ablation S/P carotid endarterectomy LEFT (2006) S/P CABG x 2 (2006)- FRANCO-LAD; LAD-D1 SUB BRANCH History of cystoscopy WITH STENT= 08/06/18= MAC SEDATION AT [facility] History of open reduction and internal fixation (ORIF) procedure BILAT ANKLE - 1960'S History of lumbar fusion Family History Grandmother Diabetes Other Alzheimer disease Prostate cancer Social History Current Living Situation: Spouse Current [facility] Comment[facility] BACK FUSION 08/02/18 TILL 08/24/18 Other Information That Helps Us Care for You: No Feels Safe at Home: Yes Safety Concerns: Feels Safe At This Time Smoking Status: Never smoker Do You Dip or Chew Tobacco: No Second Hand Exposure: No Tobacco Cessation Education Requested by Patient: No Hx Alcohol Use: No Hx Substance Use: No Beliefs That Will Affect Care: None Communication Ability: Unable Review of Systems unable to obtain due to mental status Physical Exam 2 Vital Signs (Past 24 Hours): Last Vital Signs Temp 36.3 C L 10/19/18 15:29 Pulse 62 10/19/18 15:29 Resp 20 10/19/18 15:29 BP 157/46 H 10/19/18 15:29 Pulse Ox 93 10/19/18 15:29 Constitutional: + ill appearing and + obese Eyes: + anicteric sclerae and reactive pupils; no corneal abnormality ENMT: external ear and nose normal, oropharynx normal Neck: normal visual inspection, trachea midline and + thick neck Respiratory: + labored breathing (requiring bipap); no retractions Auscultation: lungs clear to auscultation bilaterally; no rales and no rhonchi Cardiovascular: Heart Sounds: normal S1 and normal S2; no gallop Vessels: no JVD Extremities: + edema Gastrointestinal (Abdomen): Inspection/Auscultation: + abdomen distended Percussion/Palpation: no guarding Musculoskeletal: Head/Neck/Chest: normocephalic Skin: no rashes, warm and dry (in exposed areas) Neurologic: + confused Motor/Sensory: no asterixis Psychiatric: Orientation: + not oriented x 3 and + uncooperative Eye Contact: + poor eye contact Genitourinary: Woodson draining clear yellow urine Results & Data Laboratory Results Laboratory Results - last 24 hr 10/18/18 10/18/18 10/18/18 18:30 18:35 18:35 WBC RBC Hgb Hct MCV MCH MCHC RDW Std Deviation RDW Coeff of Poly Plt Count MPV Absolute Nucleated RBC Nucleated RBC % (auto) ABG pH 7.24 L ABG pCO2 61 H ABG pO2 91 ABG HCO3 25 H ABG O2 Saturation 94.1 ABG Base Excess -2.7 Philipp Test Pos Barometric Pressure 725.6 Oxygen Given 3L O2 Sodium 138 Potassium 5.7 H Chloride 107 Carbon Dioxide 24 Anion Gap 7.0 BUN 105 H Creatinine 2.53 H Est Cr Clr Drug Dosing Not Reportable Est GFR ( Amer) 27.3 Est GFR (Non-Af Amer) 23.5 BUN/Creatinine Ratio 41.5 H Glucose 132 H POC Glucose Estimat Average Glucose Hemoglobin A1c Calcium 8.2 L Phosphorus Total Bilirubin Direct Bilirubin AST ALT Alkaline Phosphatase Total Protein Albumin Urine Color Yellow Urine Appearance Turbid H Urine pH 5.0 Ur Specific [place] 1.020 Urine Protein Trace H Urine Glucose (UA) Negative Urine Ketones Negative Urine Blood 3+ H Urine Nitrite Negative Urine Bilirubin Negative Urine Urobilinogen Negative Ur Leukocyte Esterase 3+ H Urine WBC (Auto) >30 H Urine RBC (Auto) 5-10 H U Hyaline Cast (Auto) 1-5 U Epithel Cells (Auto) 20-30 H Urine Bacteria (Auto) Negative Urine Crystals Calcium Oxalate H Calcium Oxalate Crystal Present H Urine Yeast Present H Blood Type Antibody Screen 10/18/18 10/19/18 10/19/18 20:44 02:57 02:57 WBC RBC Hgb Hct MCV MCH MCHC RDW Std Deviation RDW Coeff of Poly Plt Count MPV Absolute Nucleated RBC Nucleated RBC % (auto) ABG pH ABG pCO2 ABG pO2 ABG HCO3 ABG O2 Saturation ABG Base Excess Philipp Test Barometric Pressure Oxygen Given Sodium Potassium Chloride Carbon Dioxide Anion Gap BUN Creatinine Est Cr Clr Drug Dosing Est GFR ( Amer) Est GFR (Non-Af Amer) BUN/Creatinine Ratio Glucose POC Glucose 198 H Estimat Average Glucose 177 Hemoglobin A1c 7.8 H Calcium Phosphorus Total Bilirubin Direct Bilirubin AST ALT Alkaline Phosphatase Total Protein Albumin Urine Color Urine Appearance Urine pH Ur Specific [place] Urine Protein Urine Glucose (UA) Urine Ketones Urine Blood Urine Nitrite Urine Bilirubin Urine Urobilinogen Ur Leukocyte Esterase Urine WBC (Auto) Urine RBC (Auto) U Hyaline Cast (Auto) U Epithel Cells (Auto) Urine Bacteria (Auto) Urine Crystals Calcium Oxalate Crystal Urine Yeast Blood Type A Positive Antibody Screen NEGATIVE 10/19/18 10/19/18 10/19/18 02:57 02:57 07:24 WBC 10.19 RBC 3.18 L Hgb 8.7 L Hct 29.1 L MCV 91.5 MCH 27.4 MCHC 29.9 L RDW Std Deviation 57.1 H RDW Coeff of Poly 17.2 H Plt Count 267 MPV 9.9 Absolute Nucleated RBC 0.05 H Nucleated RBC % (auto) 0.5 ABG pH 7.32 L ABG pCO2 53 H ABG pO2 76 L ABG HCO3 27 H ABG O2 Saturation 91.4 ABG Base Excess 0.0 Philipp Test Pos Barometric Pressure 730.1 Oxygen Given 3 L Sodium 140 Potassium 5.2 H Chloride 111 H Carbon Dioxide 27 Anion Gap 2.0 L BUN 98 H Creatinine 2.26 H Est Cr Clr Drug Dosing 37.0 Est GFR ( Amer) 31.3 Est GFR (Non-Af Amer) 27.0 BUN/Creatinine Ratio 43.3 H Glucose 64 L POC Glucose Estimat Average Glucose Hemoglobin A1c Calcium 8.3 L Phosphorus Total Bilirubin Direct Bilirubin AST ALT Alkaline Phosphatase Total Protein Albumin Urine Color Urine Appearance Urine pH Ur Specific [place] Urine Protein Urine Glucose (UA) Urine Ketones Urine Blood Urine Nitrite Urine Bilirubin Urine Urobilinogen Ur Leukocyte Esterase Urine WBC (Auto) Urine RBC (Auto) U Hyaline Cast (Auto) U Epithel Cells (Auto) Urine Bacteria (Auto) Urine Crystals Calcium Oxalate Crystal Urine Yeast Blood Type Antibody Screen 10/19/18 10/19/18 10/19/18 07:37 07:38 07:59 WBC RBC Hgb Hct MCV MCH MCHC RDW Std Deviation RDW Coeff of Poly Plt Count MPV Absolute Nucleated RBC Nucleated RBC % (auto) ABG pH ABG pCO2 ABG pO2 ABG HCO3 ABG O2 Saturation ABG Base Excess Philipp Test Barometric Pressure Oxygen Given Sodium Potassium Chloride Carbon Dioxide Anion Gap BUN Creatinine Est Cr Clr Drug Dosing Est GFR ( Amer) Est GFR (Non-Af Amer) BUN/Creatinine Ratio Glucose POC Glucose 41 L* 40 L* 121 H Estimat Average Glucose Hemoglobin A1c Calcium Phosphorus Total Bilirubin Direct Bilirubin AST ALT Alkaline Phosphatase Total Protein Albumin Urine Color Urine Appearance Urine pH Ur Specific [place] Urine Protein Urine Glucose (UA) Urine Ketones Urine Blood Urine Nitrite Urine Bilirubin Urine Urobilinogen Ur Leukocyte Esterase Urine WBC (Auto) Urine RBC (Auto) U Hyaline Cast (Auto) U Epithel Cells (Auto) Urine Bacteria (Auto) Urine Crystals Calcium Oxalate Crystal Urine Yeast Blood Type Antibody Screen 10/19/18 10/19/18 10/19/18 10:56 10:58 11:26 WBC RBC Hgb Hct MCV MCH MCHC RDW Std Deviation RDW Coeff of Poly Plt Count MPV Absolute Nucleated RBC Nucleated RBC % (auto) ABG pH ABG pCO2 ABG pO2 ABG HCO3 ABG O2 Saturation ABG Base Excess Philipp Test Barometric Pressure Oxygen Given Sodium Potassium Chloride Carbon Dioxide Anion Gap BUN Creatinine Est Cr Clr Drug Dosing Est GFR ( Amer) Est GFR (Non-Af Amer) BUN/Creatinine Ratio Glucose POC Glucose 61 L* 69 L* 102 H Estimat Average Glucose Hemoglobin A1c Calcium Phosphorus Total Bilirubin Direct Bilirubin AST ALT Alkaline Phosphatase Total Protein Albumin Urine Color Urine Appearance Urine pH Ur Specific [place] Urine Protein Urine Glucose (UA) Urine Ketones Urine Blood Urine Nitrite Urine Bilirubin Urine Urobilinogen Ur Leukocyte Esterase Urine WBC (Auto) Urine RBC (Auto) U Hyaline Cast (Auto) U Epithel Cells (Auto) Urine Bacteria (Auto) Urine Crystals Calcium Oxalate Crystal Urine Yeast Blood Type Antibody Screen 10/19/18 10/19/18 10/19/18 14:10 15:14 15:35 WBC RBC Hgb Hct MCV MCH MCHC RDW Std Deviation RDW Coeff of Poly Plt Count MPV Absolute Nucleated RBC Nucleated RBC % (auto) ABG pH 7.26 L ABG pCO2 63 H ABG pO2 77 L ABG HCO3 28 H ABG O2 Saturation 92.6 ABG Base Excess -0.1 Philipp Test Pos Barometric Pressure 732.4 Oxygen Given 3 L Sodium 142 Potassium 5.1 Chloride 110 H Carbon Dioxide 25 Anion Gap 7.0 BUN 93 H Creatinine 1.76 H D Est Cr Clr Drug Dosing 47.3 Est GFR ( Amer) 42.3 Est GFR (Non-Af Amer) 36.5 BUN/Creatinine Ratio 52.7 H Glucose 93 POC Glucose 112 H Estimat Average Glucose Hemoglobin A1c Calcium 8.3 L Phosphorus 5.1 H Total Bilirubin 0.2 Direct Bilirubin 0.1 AST 13 L ALT 50 Alkaline Phosphatase 150 H Total Protein 6.4 Albumin 2.0 L Urine Color Urine Appearance Urine pH Ur Specific [place] Urine Protein Urine Glucose (UA) Urine Ketones Urine Blood Urine Nitrite Urine Bilirubin Urine Urobilinogen Ur Leukocyte Esterase Urine WBC (Auto) Urine RBC (Auto) U Hyaline Cast (Auto) U Epithel Cells (Auto) Urine Bacteria (Auto) Urine Crystals Calcium Oxalate Crystal Urine Yeast Blood Type Antibody Screen
--- NOTE | 2018-10-19 17:58 | Pulmonary Consultation ---
Date of Consultation October 19, 2018 Assessment & Plan (1) Respiratory acidosis: Impression: 1. The patient definitely has severe obstructive sleep apnea, declined BiPAP and oxygen as an outpatient. 2. Acute on chronic hypercapnic respiratory failure, compromised by the loss of the bicarb with recently worsening AK I on CKD. 3. Lorazepam and other medications used including Percocet as an outpatient resulted in a prolonged effect which altered his respiratory drive. 4. Morbid obesity. 5. The patient already had a history of A. fib, coronary artery disease, which is also contributing to his untreated obstructive sleep apnea. 6. Diabetes. Plan: 1. Agree with BiPAP, difficult to assess his needs, I will place the patient on BiPAP of 15/5 4 hours on oh 4 hours off during the daytime and from 10 PM to 7 AM standing. Use full facemask. 2. Given the patient is failing any kind of modality for treating obstructive sleep apnea, I will start him on Provigil 100 mg p.o. daily. 3. Hopefully with reversal of his kidney dysfunction, the patient will be able to regenerate his bicarb preserve to compensate for respiratory acidosis. 4. Discontinue Ativan. 5. Discontinue morphine in lieu of acute kidney insufficiency. 6. Obtain echocardiogram. 7. Consider head MRI given his history of A. fib. Thank you, will follow. History of Present Illness Reason for Consultation: Respiratory failure and altered mental status. Requesting Physician: Dr. Herring Attending Physician: Dino Herring MD History of Present Illness Dear Dr. Herring: Thank you for the kind referral of Mr. Yepez to pulmonary service. This is 78-year-old gentleman with history of morbid obesity, ambulatory with a walker for short distance according to the , history of diabetes, coronary artery disease in the past, hypertension, recent history of hydronephrosis with urolithiasis status post stenting on 10/09/2018, presented to [facility] with left flank pain, and treated for urolithiasis by Dr. Tran, the patient did well post procedure however he started developing confusion as well as difficulty ambulating. He was presented to the ER and the patient did have a concern about sepsis and treated accordingly. The patient repeatedly continued to have increasing lethargy and was transferred to our institution. The patient was found to be lethargic with acute on chronic hypercapnic respiratory failure requiring a BiPAP machine. Overnight the patient become agitated and received a dose of Ativan as well. The patient become again obtunded but responsive to tactile not to verbal. Review of system was not obtainable from the patient however his was at the bedside. She claims that he has been falling 3 times since he left the hospital on October 10, 2018. No nausea or vomiting was reported, he does have shortness of breath at baseline. No increased swelling in his lower extremities. He was prescribed BiPAP in the past but he would not wear it. Also he was prescribed oxygen and he did not use it as well. He refused any further treatment. The patient has a history of A. fib, has not been anticoagulated due to multiple falls. His glucose has been variable. The rest of his review of system was difficult to obtain. 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 Family history is not obtainable. Allergies Allergy/AdvReac Type Severity Reaction Status Date / Time cyclobenzaprine AdvReac Severe disoriented Verified 10/09/18 08:15 & confused from [id number] Home Medications Home Medications Medication Instructions Recorded Confirmed Type amlodipine 5 mg PO QAM 06/11/18 10/18/18 History aspirin [Aspir-81] 81 mg PO QAM 06/11/18 10/18/18 History carvedilol 25 mg PO BID 06/11/18 10/18/18 History dulaglutide [Trulicity] 1 dose SUBCUT WK 06/11/18 10/18/18 History glyburide 5 mg PO QAM 06/11/18 10/18/18 History insulin glargine 26 unit SUBCUT HS 06/11/18 10/18/18 History insulin glargine 30 unit SUBCUT QAM 06/11/18 10/18/18 History omega 9-eqd-hat-fish oil [[place]-3] 1 dose PO BID 06/11/18 10/18/18 History glucosamine-chondroitin [Osteo 2 tab PO BID 08/23/18 10/18/18 History Bi-Flex] Justyna-C with Bioflavonoids 1 g PO BID 10/18/18 10/18/18 History mineral oil PO 10/18/18 History Patient History Medical History History of difficult intubation L2-S1 fusion 06/19/2014 - "poor visualization with MAC 4. Glidescope #4 utilized. Lg tongue with much soft tissue." Atrial fibrillation Anemia CHRONIC; BASELINE HGB 9-10 RANGE PER CHART REVIEW History of blood transfusion POST-OP CKD (chronic kidney disease) CREATININE BASELINE ~1.6 PER PCP History of atrial fibrillation S/P RADIOFREQUENCY ABLATION (2011) Dyslipidemia Prostate cancer (01/26/17) Hypertension Hx of atrial flutter 4:1 AV CONDUCTION Hx of sleep apnea NO DEVICE ("REFUSES CPAP") Diabetes mellitus, type 2 IDDM Osteoarthritis Spinal stenosis History of kidney stones Carotid artery stenosis S/P LEFT CEA (2006) Morbid obesity Coronary artery disease CABG x 2 (2006) Gout Hydronephrosis Surgical History H/O cardiac radiofrequency ablation S/P carotid endarterectomy LEFT (2006) S/P CABG x 2 (2006)- FRANCO-LAD; LAD-D1 SUB BRANCH History of cystoscopy WITH STENT= 08/06/18= MAC SEDATION AT [facility] History of open reduction and internal fixation (ORIF) procedure BILAT ANKLE - 1960'S History of lumbar fusion Family History Grandmother Diabetes Other Alzheimer disease Prostate cancer Social History Current Living Situation: Spouse Current Living Situation Comment: CURRENTLY AT [facility] POST OP BACK FUSION 08/02/18 TILL 08/24/18 Other Information That Helps Us Care for You: No Feels Safe at Home: Yes Safety Concerns: Feels Safe At This Time Smoking Status: Never smoker Do You Dip or Chew Tobacco: No Second Hand Exposure: No Tobacco Cessation Education Requested by Patient: No Hx Alcohol Use: No Hx Substance Use: No Beliefs That Will Affect Care: None Communication Ability: Unable Review of Systems Review of system is limited due to the patient being obtunded Physical Exam 2 Vital Signs (Past 24 Hours): Last Vital Signs Temp 36.3 C L 10/19/18 15:29 Pulse 61 10/19/18 16:00 Resp 20 10/19/18 15:29 BP 157/46 H 10/19/18 15:29 Pulse Ox 93 10/19/18 15:29 Physical Exam: Vital signs remained stable, O2 saturation 93% on 3 L, snoring loudly, dozing while talking to him, neck size is over than 22 inches, S1-S2 regular rate and rhythm to my exam, distant breath sounds, abdomen is obese and benign, edema in the periphery. Neurologically difficult to assess, he was arousable to me but confused. Results & Data Laboratory Results His labs were reviewed which showed baseline CBC, ABG was 7.2 /77/28 on 3 L. CO2 of 25 and BUN/creatinine 93 and 1.76. Diagnostic Findings Head CT did not show any intracranial catastrophe, ultrasound of the kidneys showed multiple nonobstructing renal calculi.
[2018-10-19] MEDS ORDERED: MODAFINIL 100 MG TAB PO SCH (18:30)
[2018-10-19] MEDS: ACETAMINOPHEN 325 MG TAB PO PRN (20:01)
[2018-10-19] MEDS: cefTRIAXone SODIUM 2,000 MG in DEXTROSE 5% 50 ML IV SCH (20:01)
[2018-10-19] MEDS ORDERED: INSULIN GLARGINE SOLOSTAR 100 UNITS/ML 3 ML PEN SC SCH (21:00)
[2018-10-19] MEDS: ONDANSETRON INJ 2 MG/ML 2 ML VIAL IV PRN (21:42)
[2018-10-20 06:45] LABS: Hematocrit (blood only) 29.1 % (42-52); Hemoglobin 8.5 g/dL (14.0-18.0); Mean Corpuscular Hgb Conc 29.2 g/dL (32-36); Mean Corpuscular Volume 93.3 fL (80-100); Mean Platelet Volume 9.8 fL (7.4-10.4); Nucleated RBC # (auto) 0.02 K/uL (0-0); Nucleated RBC % (auto) 0.3 %; Platelet Count 262 K/uL (130-400); RDW Coefficient of Variation 17.3 % (11.5-14.5); RDW Standard Deviation 58.2 fL (36.4-46.3); Red Blood Count 3.12 M/uL (4.7-6.1); White Blood Count 7.32 K/uL (4.8-10.8)
[2018-10-20 07:12] LABS: BUN Creatinine Ratio 56.7 (10-20); Calcium 8.4 mg/dl (8.5-10.1); Creatinine Clr Calc Pharmacy 59.9 ml/min; Est GFR (African American) 56.3; Est GFR (Non-African American) 48.5; Potassium 4.9 mmol/L (3.5-5.1)
[2018-10-20] MEDS: DEXTROSE 50% 50 ML SYRINGE IV PRN (07:51)
[2018-10-20] MEDS: SODIUM BICARBONATE 8.4% 75 MEQ in SODIUM CHLORIDE 0.45 % 1,000 ML IV SCH (08:06)
[2018-10-20] MEDS: INSULIN ASPART 100 UNITS/ML 3 ML PEN SC SCH ×4 (08:07→20:31)
[2018-10-20] MEDS: cefTRIAXone SODIUM 2,000 MG in DEXTROSE 5% 50 ML IV SCH (08:07)
[2018-10-20] MEDS: CARVEDILOL 25 MG TAB PO SCH ×2 (08:14→20:32)
[2018-10-20] MEDS: ASPIRIN 81 MG ECTAB PO SCH (08:14)
[2018-10-20] MEDS: AMLODIPINE BESYLATE 5 MG TAB PO SCH (08:14)
[2018-10-20] MEDS: PANTOprazole 40 MG in SYRINGE 0 ML IV SCH ×2 (08:14→20:32)
[2018-10-20] MEDS: ALLOPURINOL 300 MG TAB PO SCH (08:14)
--- NOTE | 2018-10-20 11:13 | Nephrology Progress Note ---
Date of Service October 20, 2018 Assessment & Plan (1) Acute on chronic renal failure: -- Clinically consistent with prerenal physiology and ATN. -- Baseline creatinine ~1.3 mg/dL. -- Creatinine improving toward baseline. Patient remains disproportionately azotemic without evidence of GI. This is suggestive of persistent prerenal physiology. BP acceptable and exam not suggestive of decompensated CHF. Will check urine sodium and monitor. -- Volume status euvolemic to hypervolemic. -- Continue IV HCO3 @ 100 ml/hr until current bag complete. -- Urine sediment notable for 3+ blood, >30 WBC, 5-10 RBC, epithelial cells, granular cast, calcium oxalate crystals and yeast. Repeat culture pending. Will repeat UA/micro with random urine sodium today. -- Left ureteral stent in place and no significant evidence of persistent obstruction. -- Woodson catheter remains intact due to urinary retention. -- Urology consultation appreciated. -- Document I/O's. -- Repeat metabolic profile tomorrow AM. -- Medications are currently appropriately dosed for kidney dysfunction. -- There is no current indication for [employer] ROOM. (2) Pyelonephritis: -- Blood and urine cultures from OSH positive for E coli. -- Currently being treated with ceftriaxone. (3) Nephrolithiasis, uric acid: (4) Respiratory acidosis: -- Pulmonary consultation reviewed. -- Continue IPPV. (5) Atrial fibrillation: -- Exam not consistent with decompensated CHF. (6) Encephalopathy: Subjective Mr. Yepez was sleeping comfortably in bed this morning. He remained drowsy when awake and slightly confused but appropriate. Mental status significantly improved since yesterday AM. 1:1 monitor remains at the bedside. Per nursing report, the patient continues to wax and wane. Periods of agitation persist. Mr. Yepez was notably confused and agitated this morning. He was found to be hypoxic and hypoglycemic at that time. Once these conditions improved, he was more appropriate and attempted to sit at the bedside. Unfortunately, he is severely weak and unable to support his own weight. The patient denies any pain or dyspnea. Constitutional: no fever and no chills Respiratory: no cough and no dyspnea Cardiovascular: no chest pain and no palpitations Psychiatric: + behavioral changes Physical Exam 2 Vital Signs (Past 24 Hours): Last Vital Signs Temp 36.6 C 10/20/18 07:55 Pulse 70 10/20/18 07:55 Resp 22 10/20/18 07:55 BP 155/66 H 10/20/18 07:55 Pulse Ox 94 10/20/18 07:55 Constitutional: + obese and + altered mental status; no acute distress Eyes: + anicteric sclerae; no corneal abnormality ENMT: external ear and nose normal, oropharynx normal Neck: normal visual inspection, trachea midline and + thick neck Respiratory: + labored breathing (slightly increased); no tripod positioning Auscultation: lungs clear to auscultation bilaterally; no rales and no rhonchi Cardiovascular: Heart Sounds: normal S1 and normal S2; no gallop Vessels: no JVD Extremities: + edema Gastrointestinal (Abdomen): Inspection/Auscultation: + abdomen distended Percussion/Palpation: no guarding Musculoskeletal: Head/Neck/Chest: normocephalic Skin: no rashes, warm and dry (in exposed areas) Neurologic: + confused Motor/Sensory: no asterixis Psychiatric: Orientation: + not oriented x 3 and + uncooperative Eye Contact: + poor eye contact Results & Data Laboratory Results Laboratory Results - last 24 hr 10/19/18 10/19/18 10/19/18 07:37 07:38 07:59 WBC RBC Hgb Hct MCV MCH MCHC RDW Std Deviation RDW Coeff of Poly Plt Count MPV Absolute Nucleated RBC Nucleated RBC % (auto) ABG pH ABG pCO2 ABG pO2 ABG HCO3 ABG O2 Saturation ABG Base Excess Philipp Test Barometric Pressure Oxygen Given Sodium Potassium Chloride Carbon Dioxide Anion Gap BUN Creatinine Est Cr Clr Drug Dosing Est GFR ( Amer) Est GFR (Non-Af Amer) BUN/Creatinine Ratio Glucose POC Glucose 41 L* 40 L* 121 H Calcium Phosphorus Total Bilirubin Direct Bilirubin AST ALT Alkaline Phosphatase Total Protein Albumin 10/19/18 10/19/18 10/19/18 10:56 10:58 11:26 WBC RBC Hgb Hct MCV MCH MCHC RDW Std Deviation RDW Coeff of Poly Plt Count MPV Absolute Nucleated RBC Nucleated RBC % (auto) ABG pH ABG pCO2 ABG pO2 ABG HCO3 ABG O2 Saturation ABG Base Excess Philipp Test Barometric Pressure Oxygen Given Sodium Potassium Chloride Carbon Dioxide Anion Gap BUN Creatinine Est Cr Clr Drug Dosing Est GFR ( Amer) Est GFR (Non-Af Amer) BUN/Creatinine Ratio Glucose POC Glucose 61 L* 69 L* 102 H Calcium Phosphorus Total Bilirubin Direct Bilirubin AST ALT Alkaline Phosphatase Total Protein Albumin 10/19/18 10/19/18 10/19/18 14:10 15:14 15:35 WBC RBC Hgb Hct MCV MCH MCHC RDW Std Deviation RDW Coeff of Poly Plt Count MPV Absolute Nucleated RBC Nucleated RBC % (auto) ABG pH 7.26 L ABG pCO2 63 H ABG pO2 77 L ABG HCO3 28 H ABG O2 Saturation 92.6 ABG Base Excess -0.1 Philipp Test Pos Barometric Pressure 732.4 Oxygen Given 3 L Sodium 142 Potassium 5.1 Chloride 110 H Carbon Dioxide 25 Anion Gap 7.0 BUN 93 H Creatinine 1.76 H D Est Cr Clr Drug Dosing 47.3 Est GFR ( Amer) 42.3 Est GFR (Non-Af Amer) 36.5 BUN/Creatinine Ratio 52.7 H Glucose 93 POC Glucose 112 H Calcium 8.3 L Phosphorus 5.1 H Total Bilirubin 0.2 Direct Bilirubin 0.1 AST 13 L ALT 50 Alkaline Phosphatase 150 H Total Protein 6.4 Albumin 2.0 L 10/19/18 10/19/18 10/20/18 20:02 21:42 06:02 WBC 7.32 RBC 3.12 L Hgb 8.5 L Hct 29.1 L MCV 93.3 MCH 27.2 MCHC 29.2 L RDW Std Deviation 58.2 H RDW Coeff of Poly 17.3 H Plt Count 262 MPV 9.8 Absolute Nucleated RBC 0.02 H Nucleated RBC % (auto) 0.3 ABG pH ABG pCO2 ABG pO2 ABG HCO3 ABG O2 Saturation ABG Base Excess Philipp Test Barometric Pressure Oxygen Given Sodium Potassium Chloride Carbon Dioxide Anion Gap BUN Creatinine Est Cr Clr Drug Dosing Est GFR ( Amer) Est GFR (Non-Af Amer) BUN/Creatinine Ratio Glucose POC Glucose 83 131 H Calcium Phosphorus Total Bilirubin Direct Bilirubin AST ALT Alkaline Phosphatase Total Protein Albumin 10/20/18 10/20/18 10/20/18 06:02 07:03 07:05 WBC RBC Hgb Hct MCV MCH MCHC RDW Std Deviation RDW Coeff of Poly Plt Count MPV Absolute Nucleated RBC Nucleated RBC % (auto) ABG pH ABG pCO2 ABG pO2 ABG HCO3 ABG O2 Saturation ABG Base Excess Philipp Test Barometric Pressure Oxygen Given Sodium 144 Potassium 4.9 Chloride 110 H Carbon Dioxide 29 Anion Gap 5.0 BUN 79 H Creatinine 1.39 D Est Cr Clr Drug Dosing 59.9 Est GFR ( Amer) 56.3 Est GFR (Non-Af Amer) 48.5 BUN/Creatinine Ratio 56.7 H Glucose 51 L* POC Glucose 55 L* 55 L* Calcium 8.4 L Phosphorus Total Bilirubin Direct Bilirubin AST ALT Alkaline Phosphatase Total Protein Albumin 10/20/18 10/20/18 07:23 08:05 WBC RBC Hgb Hct MCV MCH MCHC RDW Std Deviation RDW Coeff of Poly Plt Count MPV Absolute Nucleated RBC Nucleated RBC % (auto) ABG pH ABG pCO2 ABG pO2 ABG HCO3 ABG O2 Saturation ABG Base Excess Philipp Test Barometric Pressure Oxygen Given Sodium Potassium Chloride Carbon Dioxide Anion Gap BUN Creatinine Est Cr Clr Drug Dosing Est GFR ( Amer) Est GFR (Non-Af Amer) BUN/Creatinine Ratio Glucose POC Glucose 65 L* 158 H Calcium Phosphorus Total Bilirubin Direct Bilirubin AST ALT Alkaline Phosphatase Total Protein Albumin
--- NOTE | 2018-10-20 11:51 | Pulmonology Progress Note ---
Date of Service October 20, 2018 Assessment & Plan (1) Respiratory acidosis: Impression: 1. The patient definitely has severe obstructive sleep apnea, declined BiPAP and oxygen as an outpatient. 2. Acute on chronic hypercapnic respiratory failure, compromised by the loss of the bicarb with recently worsening AK I on CKD. 3. Deconditioning 4. Morbid obesity. 5. History of A. fib and coronary artery disease. Likely contributing to both is a history of obstructive sleep apnea the patient could not tolerate any positive pressure ventilation nor oxygen. 6. Diabetes. Plan: 1. Continue BiPAP nocturnally. 2. Minimize the oxygen to 1.5 L only via nasal cannula. 3. Renal function is improving. 4. Avoid Ativan and morphine with renal dysfunction. 5. Refrain from sedatives at this point. 6. Obtain echocardiogram. 7. Consider head MRI given his history of A. fib. 8. Provigil 100 mg p.o. every morning. 9. PT and OT consult. Thank you, will follow. Subjective More awake but confused, could not stand up, was able to sit at the bedside. Denies shortness of breath. No chest pain reported. Physical Exam 2 Vital Signs (Past 24 Hours): Last Vital Signs Temp 36.6 C 10/20/18 07:55 Pulse 70 10/20/18 07:55 Resp 22 10/20/18 07:55 BP 155/66 H 10/20/18 07:55 Pulse Ox 94 10/20/18 07:55 Physical Exam: Vital signs are stable, blood pressure slightly elevated, O2 sat 94% on 2 L. Lungs are clear. S1-S2 regular rate and rhythm. Abdomen is obese but benign. Edema in the periphery. Results & Data Laboratory Results Labs were reviewed which showed stable CBC, ABG of 7.2 6/63/77/20 8/92%. Glucose has been variable. Diagnostic Findings No new imaging.
--- NOTE | 2018-10-20 12:16 | Hospitalist Progress Note ---
Date of Service October 20, 2018 Assessment & Plan (1) Respiratory acidosis: Metabolic encephalopathy secondary to acute hypercarbic respiratory failure and/or pyelonephritis and/or acute renal failure Patient has respiratory acidosis which would typically be compensated by his kidneys however due to his acute kidney failure on top of chronic kidney disease stage III he did is not been present of bicarbonate therefore he is acidemic. Pulmonary medicine believes it is his kidney function improves his pulmonary status will continue to return to his usual baseline and his pH will improve which will improve his mental state at this point time will still use BiPAP 4 hours on 4 hours off during the day with BiPAP at night (2) Pyelonephritis: Patient reportedly has acute pyelonephritis of blood and urine cultures positive for E. coli cultures initiated on cefepime however sensitivities suggest that Rocephin will better LOYDA he was changed to Rocephin 19 October at 2 g daily, ultrasound does not show obstruction of the left ureter just some residual stone debris. Urology is visited the patient does not feel any intervention is required (3) Acute on chronic renal failure: acute on chronic kidney disease stage 3 patient had good improvement of his creatinine with sluggish reduction in his BUN nephrology is following and maintaining management of his IV fluids and acid base disorder with exception of his respiratory acidosis (4) Hydronephrosis with renal calculous obstruction: Reportedly the patient has mild hydronephrosis without complete obstruction seen at [facility] repeat ultrasound there is also without significant abnormalities urology does not feel intervention is acquired (5) Anemia: Patient's hemoglobin remains in the 8 g range we do not feel he is having an acute GI bleed at this time he will be maintained on Protonix 40 twice daily (6) Diabetes mellitus, type 2: Patient typically takes Lantus and Trulicity for blood pressure control there is some documentation that he may have may or may not be on glyburide also. Patient had persistent problems with hypoglycemia and Lantus will be discontinued altogether and will just be on sliding scale (7) Encephalopathy: Patient has encephalopathy initially was thought to be secondary to infectious etiologies or perhaps his acidosis patient remains with significant encephalopathy his acidosis does continue which could affect this. His infection should be treated his CT scan was without gross abnormalities but with his history of atrial fibrillation we will try to pursue an MRI of his brain he may require some sedation surrounding this (8) DVT prophylaxis: Will have chemoprophylaxis initiated (9) Coronary artery disease: Patient has history of coronary artery disease will be maintained on his carvedilol and amlodipine aspirin was previously on his med reconciliation this would continue 81 mg daily Physical Exam 2 Vital Signs (Past 24 Hours): Last Vital Signs Temp 36.4 C L 10/20/18 11:56 Pulse 65 10/20/18 11:56 Resp 22 10/20/18 11:56 BP 158/64 H 10/20/18 11:56 Pulse Ox 90 10/20/18 11:56
--- NOTE | 2018-10-20 12:36 | Hospitalist Progress Note ---
Date of Service October 20, 2018 Assessment & Plan (1) Respiratory acidosis: Metabolic encephalopathy secondary to acute hypercarbic respiratory failure and/or pyelonephritis and/or acute renal failure Patient has respiratory acidosis which would typically be compensated by his kidneys however due to his acute kidney failure on top of chronic kidney disease stage III he did is not been present of bicarbonate therefore he is acidemic. Pulmonary medicine believes it is his kidney function improves his pulmonary status will continue to return to his usual baseline and his pH will improve which will improve his mental state at this point time will still use BiPAP 4 hours on 4 hours off during the day with BiPAP at night (2) Pyelonephritis: Patient reportedly has acute pyelonephritis of blood and urine cultures positive for E. coli cultures initiated on cefepime however sensitivities suggest that Rocephin will better LOYDA he was changed to Rocephin 19 October at 2 g daily, ultrasound does not show obstruction of the left ureter just some residual stone debris. Urology is visited the patient does not feel any intervention is required (3) Acute on chronic renal failure: acute on chronic kidney disease stage 3 patient had good improvement of his creatinine with sluggish reduction in his BUN nephrology is following and maintaining management of his IV fluids and acid base disorder with exception of his respiratory acidosis (4) Hydronephrosis with renal calculous obstruction: Reportedly the patient has mild hydronephrosis without complete obstruction seen at [facility] repeat ultrasound there is also without significant abnormalities urology does not feel intervention is acquired (5) Anemia: Patient's hemoglobin remains in the 8 g range we do not feel he is having an acute GI bleed at this time he will be maintained on Protonix 40 twice daily (6) Diabetes mellitus, type 2: Patient typically takes Lantus and Trulicity for blood pressure control there is some documentation that he may have may or may not be on glyburide also. Patient had persistent problems with hypoglycemia and Lantus will be discontinued altogether and will just be on sliding scale (7) Encephalopathy: Patient has encephalopathy initially was thought to be secondary to infectious etiologies or perhaps his acidosis patient remains with significant encephalopathy his acidosis does continue which could affect this. His infection should be treated his CT scan was without gross abnormalities but with his history of atrial fibrillation we will try to pursue an MRI of his brain he may require some sedation surrounding this (8) DVT prophylaxis: Will have chemoprophylaxis initiated (9) Coronary artery disease: Patient has history of coronary artery disease will be maintained on his carvedilol and amlodipine aspirin was previously on his med reconciliation this would continue 81 mg daily Subjective Patient remains fairly easily confused with respiratory distress family is at the bedside he offers no focal complaints is not oriented to place Review of Systems Unobtainable due to cognitive status Physical Exam 2 Vital Signs (Past 24 Hours): Last Vital Signs Temp 36.4 C L 10/20/18 11:56 Pulse 65 10/20/18 11:56 Resp 22 10/20/18 11:56 BP 158/64 H 10/20/18 11:56 Pulse Ox 90 10/20/18 11:56 The patient appeared verbally obese and uncomfortable Vital signs as documented. Head exam is unremarkable. normocephalic, atraumatic Neck is with 2 cm jugular venous distension, thyromegaly, or lymphademopathy Lungs are clear to auscultation but with poor overall air movement Cardiac exam reveals Rhythm is regular. First and second heart sounds normal. Abdominal exam reveals normal bowel sounds, no masses, no organomegaly Extremities are 2+ edematous and both pedal pulses are present Neurologic exam is A&Ox1, no focal deficits, strength is equal bilateral but globally reduced Skin is warm Dry without bruises or lesions
[2018-10-20 12:55] LABS: INR 1.1 (0.9-1.1); Prothrombin Time 10.8 Seconds (9.0-12.0)
[2018-10-20 13:15] LABS: Appearance Urine Cloudy (Clear); Bilirubin Urine Negative (Negative); Color Urine Yellow; Epithelial Cell Urine Auto >30 /lpf (0-5); Glucose Urine UA Negative (Negative); Ketones Urine Negative (Negative); Leukocyte Esterase Urine 3+ (Negative); Nitrite Urine Negative (Negative); Protein Urine Trace (Negative); Specific Gravity Urine 1.017 (1.000-1.030); Urobilinogen Urine Negative (Negative); WBC Urine Automated >30 /hpf (0-5)
[2018-10-20 13:43] LABS: Mucus Urine Present (None Prsent)
[2018-10-20 13:45] LABS: Bacteria Urine Automated 1+ (Negative)
--- NOTE | 2018-10-20 14:11 | Urology Progress Note ---
Date of Service October 20, 2018 Assessment & Plan (1) Nephrolithiasis, uric acid: (2) Pyelonephritis: Continue antibiotics. Per hospitalist note, plan to de-esculate antibiotic to Rocephin. Will zion need longer course of medication. Discussed with family infections with stones. Discussed bactremia, confusion, and pyelo in males. Discussed will likely have some weakness over next few days to weeks as fighting infection. Had acute on chronic resp failure secondary to this and confusion. WIll need supportive care. Monitor for now. Will maintain catheter for max drainage. Subjective Patient with mask on. Able to answer yes and no questions appropriately. Doing better, less confusion. Still very weak with need for respiratory support with bipap. Patient with sepsis and bactremia. Deesculating to Rocephin per hospitalist note. No severe fevers. Confusion improved. Physical Exam 2 Vital Signs (Past 24 Hours): Last Vital Signs Temp 36.4 C L 10/20/18 11:56 Pulse 65 10/20/18 11:56 Resp 22 10/20/18 11:56 BP 158/64 H 10/20/18 11:56 Pulse Ox 90 10/20/18 11:56 Constitutional: + ill appearing and + obese; no acute distress Eyes: + anicteric sclerae and reactive pupils; no corneal abnormality ENMT: external ear and nose normal, oropharynx normal Neck: normal visual inspection, trachea midline and + thick neck Respiratory: + labored breathing (slightly increased); no retractions and no tripod positioning Auscultation: lungs clear to auscultation bilaterally; no rales and no rhonchi Cardiovascular: Heart Sounds: normal S1 and normal S2; no gallop Vessels: no JVD Extremities: + edema Gastrointestinal (Abdomen): Inspection/Auscultation: + abdomen distended Percussion/Palpation: no guarding Musculoskeletal: Head/Neck/Chest: normocephalic Skin: no rashes, warm and dry (in exposed areas) Neurologic: + confused Motor/Sensory: + tremor; no asterixis Psychiatric: Eye Contact: + poor eye contact Genitourinary: Woodson clear yellow
[2018-10-20] MEDS: ACETAMINOPHEN 325 MG TAB PO PRN (17:38)
[2018-10-20] MEDS: HEPARIN SOD 5,000 UNIT/0.5 ML VIAL SQ SCH (20:32)
[2018-10-20] MEDS: LIDOCAINE 5% 1 PATCH TD SCH (21:55)
[2018-10-21] MEDS: ACETAMINOPHEN 325 MG TAB PO SCH ×2 (02:18→09:53)
--- NOTE | 2018-10-21 05:25 | XRay Report ---
XR KUB CLINICAL HISTORY: 78 years-old Male presenting with abdominal pain. TECHNIQUE: Single supine view of the abdomen was obtained. COMPARISON: 09/26/2018. FINDINGS: The examination is significantly limited by portable supine technique and patient body habitus. Nonobstructive bowel gas pattern. No gross pneumoperitoneum. Left ureteral stents in place. The stent has been exchanged in the interim. Body habitus and portable technique limit evaluation for nephrolithiasis. Fiducial markers in the prostate likely indicate lewis or external beam radiation. Extensive posterior fusion hardware of the lumbar spine extending from L1 to S1 with laminectomy defe cts. Dextroscoliosis. Degenerative changes of the lower thoracic spine. Calcification in the region o f the origin of the right hamstrings muscle complex may imply prior injury. Partially visualized medi an sternotomy wire. Lung bases grossly clear. IMPRESSION: The examination is significantly limited by portable supine technique and patient body habitus. 1. No acute intra-abdominal pathology. Electronically signed by: Simeon Oneal M.D. 10/21/2018 5:24 AM
[2018-10-21 06:43] LABS: Hemoglobin 9.4 g/dL (14.0-18.0); Mean Corpuscular Hgb Conc 29.4 g/dL (32-36); Mean Corpuscular Volume 91.7 fL (80-100); Mean Platelet Volume 10.2 fL (7.4-10.4); Platelet Count 312 K/uL (130-400); RDW Standard Deviation 56.4 fL (36.4-46.3); Red Blood Count 3.49 M/uL (4.7-6.1); White Blood Count 9.25 K/uL (4.8-10.8)
[2018-10-21 07:22] LABS: BUN Creatinine Ratio 48.6 (10-20); Calcium 9.1 mg/dl (8.5-10.1); Creatinine Clr Calc Pharmacy 72.8 ml/min; Est GFR (African American) 71.5; Est GFR (Non-African American) 61.7
[2018-10-21] MEDS: CARVEDILOL 25 MG TAB PO SCH ×2 (07:28→20:00)
[2018-10-21] MEDS: HEPARIN SOD 5,000 UNIT/0.5 ML VIAL SQ SCH ×2 (07:29→20:00)
[2018-10-21] MEDS: ALLOPURINOL 300 MG TAB PO SCH (07:29)
[2018-10-21] MEDS: AMLODIPINE BESYLATE 5 MG TAB PO SCH (07:29)
[2018-10-21] MEDS: ASPIRIN 81 MG ECTAB PO SCH (07:29)
[2018-10-21] MEDS: PANTOprazole 40 MG in SYRINGE 0 ML IV SCH ×2 (09:08→20:02)
[2018-10-21] MEDS: INSULIN ASPART 100 UNITS/ML 3 ML PEN SC SCH ×4 (09:09→20:45)
[2018-10-21] MEDS: cefTRIAXone SODIUM 2,000 MG in DEXTROSE 5% 50 ML IV SCH (09:11)
--- NOTE | 2018-10-21 10:23 | Nephrology Progress Note ---
Date of Service October 21, 2018 Assessment & Plan (1) Acute on chronic renal failure: -- Clinically consistent with prerenal physiology and ATN. -- Creatinine has returned to baseline. Urine output appropriate. -- Volume status euvolemic to hypervolemic. -- Will await results of TTE prior to deciding on diuretics. Certainly expect a component of pulmonary hypertension. -- Urine sediment notable for 3+ blood, >30 WBC, 5-10 RBC, epithelial cells, granular cast, calcium oxalate crystals and yeast. -- Left ureteral stent in place and no significant evidence of persistent obstruction. -- Woodson catheter remains intact due to urinary retention. -- Urology consultation appreciated. -- Document I/O's. -- Repeat metabolic profile tomorrow AM. -- Suggest avoiding NSAIDS at this time. (2) Pyelonephritis: -- Blood and urine cultures from OSH positive for E coli. -- Currently being treated with ceftriaxone. (3) Nephrolithiasis, uric acid: (4) Respiratory acidosis: -- Pulmonary consultation appreciated. -- Patient continues to require NIPPV. (5) Atrial fibrillation: (6) Encephalopathy: Subjective Mr. Yepez continues to have delirium with waxing and waning. He was agitated overnight. Without supplement O2, he becomes acutely hypoxic. He was not responding appropriately during my assessment this morning. The patient was seen and evaluated with Dr. Herring at the bedside. 1:1 monitor remains necessary. Strength is improving. He remains aferbile. Review of Systems Unobtainable due to cognitive status Constitutional: no fever Psychiatric: + behavioral changes Physical Exam 2 Vital Signs (Past 24 Hours): Last Vital Signs Temp 36.5 C 10/21/18 06:34 Pulse 78 10/21/18 06:34 Resp 16 10/21/18 06:34 BP 177/85 H 10/21/18 06:34 Pulse Ox 91 10/21/18 06:34 Constitutional: + ill appearing, + obese and + altered mental status Eyes: + anicteric sclerae; no corneal abnormality ENMT: external ear and nose normal, oropharynx normal Neck: normal visual inspection, trachea midline and + thick neck Respiratory: + labored breathing (slightly increased); no cough Auscultation: lungs clear to auscultation bilaterally and + rales; no rhonchi Cardiovascular: Heart Sounds: normal S1 and normal S2; no gallop Vessels: no JVD Extremities: + edema Gastrointestinal (Abdomen): Inspection/Auscultation: + abdomen distended Percussion/Palpation: no guarding Musculoskeletal: Extremities: no cyanosis and no clubbing Skin: no rashes, warm and dry Neurologic: + confused Motor/Sensory: no asterixis Psychiatric: Orientation: + not oriented x 3 and + uncooperative Results & Data Laboratory Results Laboratory Results - last 24 hr 10/20/18 10/20/18 10/20/18 06:11 11:12 12:57 WBC RBC Hgb Hct MCV MCH MCHC RDW Std Deviation RDW Coeff of Poly Plt Count MPV PT 10.8 INR 1.1 Sodium Potassium Chloride Carbon Dioxide Anion Gap BUN Creatinine Est Cr Clr Drug Dosing Est GFR ( Amer) Est GFR (Non-Af Amer) BUN/Creatinine Ratio Glucose POC Glucose 130 H Calcium Urine Color Urine Appearance Urine pH Ur Specific Cadet Urine Protein Urine Glucose (UA) Urine Ketones Urine Blood Urine Nitrite Urine Bilirubin Urine Urobilinogen Ur Leukocyte Esterase Urine WBC (Auto) Urine RBC (Auto) U Hyaline Cast (Auto) U Epithel Cells (Auto) Urine Bacteria (Auto) Ur Renal Epithelial Cell Urine Mucus Urine Yeast Ur Random Sodium 46 10/20/18 10/20/18 10/20/18 12:57 16:15 20:31 WBC RBC Hgb Hct MCV MCH MCHC RDW Std Deviation RDW Coeff of Poly Plt Count MPV PT INR Sodium Potassium Chloride Carbon Dioxide Anion Gap BUN Creatinine Est Cr Clr Drug Dosing Est GFR ( Amer) Est GFR (Non-Af Amer) BUN/Creatinine Ratio Glucose POC Glucose 97 121 H Calcium Urine Color Yellow Urine Appearance Cloudy H Urine pH 5.0 Ur Specific Cadet 1.017 Urine Protein Trace H Urine Glucose (UA) Negative Urine Ketones Negative Urine Blood 3+ H Urine Nitrite Negative Urine Bilirubin Negative Urine Urobilinogen Negative Ur Leukocyte Esterase 3+ H Urine WBC (Auto) >30 H Urine RBC (Auto) 10-30 H U Hyaline Cast (Auto) 1-5 U Epithel Cells (Auto) >30 H Urine Bacteria (Auto) 1+ H Ur Renal Epithelial Cell Not Reportable Urine Mucus Present H Urine Yeast Not Reportable Ur Random Sodium 10/21/18 10/21/18 10/21/18 01:39 04:12 05:58 WBC 9.25 RBC 3.49 L Hgb 9.4 L Hct 32.0 L MCV 91.7 MCH 26.9 MCHC 29.4 L RDW Std Deviation 56.4 H RDW Coeff of Poly 17.0 H Plt Count 312 MPV 10.2 PT INR Sodium Potassium Chloride Carbon Dioxide Anion Gap BUN Creatinine Est Cr Clr Drug Dosing Est GFR ( Amer) Est GFR (Non-Af Amer) BUN/Creatinine Ratio Glucose POC Glucose 123 H 159 H Calcium Urine Color Urine Appearance Urine pH Ur Specific Cadet Urine Protein Urine Glucose (UA) Urine Ketones Urine Blood Urine Nitrite Urine Bilirubin Urine Urobilinogen Ur Leukocyte Esterase Urine WBC (Auto) Urine RBC (Auto) U Hyaline Cast (Auto) U Epithel Cells (Auto) Urine Bacteria (Auto) Ur Renal Epithelial Cell Urine Mucus Urine Yeast Ur Random Sodium 10/21/18 10/21/18 05:58 06:58 WBC RBC Hgb Hct MCV MCH MCHC RDW Std Deviation RDW Coeff of Poly Plt Count MPV PT INR Sodium 140 Potassium 5.0 Chloride 108 H Carbon Dioxide 29 Anion Gap 3.0 BUN 55 H Creatinine 1.14 Est Cr Clr Drug Dosing 72.8 Est GFR ( Amer) 71.5 Est GFR (Non-Af Amer) 61.7 BUN/Creatinine Ratio 48.6 H Glucose 160 H POC Glucose 167 H Calcium 9.1 Urine Color Urine Appearance Urine pH Ur Specific Cadet Urine Protein Urine Glucose (UA) Urine Ketones Urine Blood Urine Nitrite Urine Bilirubin Urine Urobilinogen Ur Leukocyte Esterase Urine WBC (Auto) Urine RBC (Auto) U Hyaline Cast (Auto) U Epithel Cells (Auto) Urine Bacteria (Auto) Ur Renal Epithelial Cell Urine Mucus Urine Yeast Ur Random Sodium
[2018-10-21] MEDS: HALOPERIDOL LACTATE 5 MG/ML 1 ML VIAL IV PRN ×3 (10:44→23:43)
[2018-10-21] MEDS ORDERED: PERFLUTREN LIPID MICROSPHERE (DEFINITY) IV ONE (10:44)
[2018-10-21 11:02] LABS: HCO3 ABG 30 mmol/L (19-24); Oxygen Saturation ABG 92.2 % (90-95); PCO2 ABG 56 mmHg (35-46); PO2 ABG 71 mm/Hg (80-95); pH ABG 7.34 (7.35-7.45)
[2018-10-21 11:10] LABS: Allen Test Pos (Pos)
[2018-10-21] MEDS ORDERED: HALOPERIDOL LACTATE 5 MG/ML 1 ML VIAL IV STA (11:16)
[2018-10-21] MEDS: ACETAMINOPHEN 1,000 MG/100 ML VIAL IV PRN (11:23)
--- NOTE | 2018-10-21 12:57 | Hospitalist Progress Note ---
Date of Service October 21, 2018 Assessment & Plan (1) Respiratory acidosis: Metabolic encephalopathy secondary to acute hypercarbic respiratory failure and/or pyelonephritis and/or acute renal failure Patient improved but persistent respiratory acidosis which would typically be compensated by his kidneys however due to his acute kidney failure on top of chronic kidney disease stage III Pulmonary medicine believes if his kidney function improves his pulmonary status will continue to return to his usual baseline and his pH will improve which will improve his mental state Patient and his hypoxia remedied with high flow oxygen and echocardiogram is pending and ABG checked on high flow oxygen shows his pH is fairly close to baseline and is PCO2 is improved (2) Pyelonephritis: Patient reportedly has acute pyelonephritis of blood and urine cultures positive for E. coli cultures initiated on cefepime however sensitivities suggest that Rocephin will better LOYDA he was changed to Rocephin 19 October at 2 g daily, ultrasound does not show obstruction of the left ureter just some residual stone debris. Urology is visited the patient does not feel any intervention is required (3) Acute on chronic renal failure: acute on chronic kidney disease stage 3 patient continues to have improvement of his creatinine with sluggish reduction in his BUN. nephrology is following and maintaining management of his IV fluids and acid base disorder with exception of his respiratory acidosis IV fluids were cut on due to concern for some volume overload (4) Hydronephrosis with renal calculous obstruction: Reportedly the patient has mild hydronephrosis without complete obstruction seen at [facility] repeat ultrasound there is also without significant abnormalities urology does not feel intervention is acquired (5) Anemia: Patient's hemoglobin remains in the 8 g range we do not feel he is having an acute GI bleed at this time he will be maintained on Protonix 40 twice daily (6) Diabetes mellitus, type 2: Patient typically takes Lantus and Trulicity for blood pressure control there is some documentation that he may have may or may not be on glyburide also. Patient had persistent problems with hypoglycemia and Lantus will be discontinued altogether on 10/20 and will just be on sliding scale (7) Encephalopathy: Patient has encephalopathy initially was thought to be secondary to infectious etiologies or perhaps his acidosis patient remains with significant encephalopathy his acidosis does continue which could affect this. His infection should be treated his CT scan was without gross abnormalities but with his history of atrial fibrillation we will try to pursue an MRI of his brain his agitation is prevented this. Will use Haldol as restraints in hopes we can control his behavior enough to pursue MRI scan (8) DVT prophylaxis: Will have chemoprophylaxis initiated (9) Coronary artery disease: Patient has history of coronary artery disease will be maintained on his carvedilol and amlodipine aspirin was previously on his med reconciliation this would continue 81 mg daily Subjective Patient remains with fairly marked confusion and agitation. He is not oriented to place or time. Unclear the etiology as would be at initially hoped it was be from his infection which is treated, does remain to have a acidemia which could have an impact. Review of Systems Unobtainable due to cognitive status Physical Exam 2 Vital Signs (Past 24 Hours): Last Vital Signs Temp 36.5 C 10/21/18 06:34 Pulse 76 10/21/18 11:55 Resp 24 10/21/18 11:55 BP 173/62 H 10/21/18 11:55 Pulse Ox 93 10/21/18 11:55 The patient appeared well nourished and normally developed. He is obese he is confused Vital signs as documented. Easily becomes hypoxic he is now on high flow oxygen Head exam is unremarkable. normocephalic, atraumatic Neck is with a 2 cm jugular venous distension, thyromegaly, or lymphademopathy Lungs are with diminished breath sounds throughout but no focal rales or air loss or wheeze Cardiac exam reveals Rhythm is regular. First and second heart sounds normal. Abdominal exam reveals normal bowel sounds, no masses, no organomegaly Extremities are mildly edematous and both pedal pulses are present Neurologic exam is A&Ox1, no focal deficits as he spontaneously moves all extremities, strength is equal bilateral Psychologically seems delirious Skin is warm Dry without bruises or lesions
--- NOTE | 2018-10-21 15:37 | Urology Progress Note ---
Date of Service October 21, 2018 Assessment & Plan (1) Nephrolithiasis, uric acid: (2) Pyelonephritis: Patient improving slowly. Major issues largely respiratory at this point with poor reserve. Monitoring with medical and ICU. Will continue supportive care. Monitor if any changes or issues. Confusion likely acute on chronic issues with possibly ICU delirium Continue antibiotics. Per hospitalist note, plan to de-esculate antibiotic to Rocephin. Will likley need longer course of medication. Discussed with family infections with stones. Discussed bactremia, confusion, and pyelo in males. Discussed will likely have some weakness over next few days to weeks as fighting infection. Had acute on chronic resp failure secondary to this and confusion. WIll need supportive care. Monitor for now. Will maintain catheter for max drainage. Subjective Patient improving but still weak with respiratory issues. Tolerating catheter. Patient admitted with sepsis and bactremia with stones. No severe fevers. Confusion improved but still significnatly not oriented. Physical Exam 2 Vital Signs (Past 24 Hours): Last Vital Signs Temp 36.5 C 10/21/18 06:34 Pulse 76 10/21/18 11:55 Resp 24 10/21/18 11:55 BP 173/62 H 10/21/18 11:55 Pulse Ox 93 10/21/18 11:55 Constitutional: well developed Respiratory: + labored breathing and + uses accessory muscles; no respiratory distress Cardiovascular: Rate/Rhythm: not tachycardic Gastrointestinal (Abdomen): Percussion/Palpation: abdomen nontender Psychiatric: Orientation: alert; + not oriented to person Genitourinary: Woodson in place draining clear yellow.
--- NOTE | 2018-10-21 16:31 | Pulmonology Progress Note ---
Date of Service October 21, 2018 Assessment & Plan (1) Respiratory acidosis: Impression: 1. The patient definitely has severe obstructive sleep apnea, declined BiPAP and oxygen as an outpatient. 2. Acute on chronic hypercapnic respiratory failure, compromised by the loss of the bicarb with recently worsening AK I on CKD. 3. Deconditioning 4. Morbid obesity. 5. History of A. fib and coronary artery disease. Likely contributing to both is a history of obstructive sleep apnea the patient could not tolerate any positive pressure ventilation nor oxygen. 6. Diabetes. Plan: 1. Continue BiPAP nocturnally, use oxygen during the daytime, keep O2 saturation 85-90% only. 2. Minimize the oxygen to 1.5 L only via nasal cannula. 3. Renal function is improving. 4. Avoid sedatives and narcotics. 5. Start the patient on Provigil 100 mg p.o. daily. So far has not been done. 6. Obtain echocardiogram. 7. Consider head MRI given his history of A. fib. 8. Discussed with nursing staff. Thank you, will follow. Subjective Remains confused, following commands and answering questions, tolerating the BiPAP off and on. No events overnight. Less agitated. Tolerating oral intake. Physical Exam 2 Vital Signs (Past 24 Hours): Last Vital Signs Temp 36.5 C 10/21/18 06:34 Pulse 76 10/21/18 11:55 Resp 24 10/21/18 11:55 BP 173/62 H 10/21/18 11:55 Pulse Ox 93 10/21/18 11:55 Physical Exam: S1-S2, regular rate and rhythm, vital signs are stable, 93% of oxygen saturation, lungs are distant breath sounds, abdomen is benign, edema in the periphery. Results & Data Laboratory Results Normal leukocyte count, ABG of 7.3 4/56/71/30/90 2%. BUN/creatinine 55-1.1. Diagnostic Findings KUB showed no intra-abdominal catastrophe.
[2018-10-21] MEDS: LIDOCAINE 5% 1 PATCH TD SCH (20:01)
[2018-10-21] MEDS: QUETIAPINE FUMARATE 25 MG TABLET PO SCH (20:03)
[2018-10-22] MEDS ORDERED: DOPamine 400MG / 250ML D5W IV ONE (05:39)
[2018-10-22 05:42] LABS: Hematocrit (blood only) 34.1 % (42-52); Mean Corpuscular Hgb Conc 29.3 g/dL (32-36); Mean Corpuscular Volume 90.9 fL (80-100); Mean Platelet Volume 10.2 fL (7.4-10.4); Nucleated RBC # (auto) 0.08 K/uL (0-0); Nucleated RBC % (auto) 0.5 %; Platelet Count 412 K/uL (130-400); RDW Coefficient of Variation 17.1 % (11.5-14.5); RDW Standard Deviation 56.8 fL (36.4-46.3); Red Blood Count 3.75 M/uL (4.7-6.1); White Blood Count 15.69 K/uL (4.8-10.8)
--- NOTE | 2018-10-22 05:47 | Emergency Department Note ---
ED Visit Note A CODE BLUE was called to MRI: According to the human resources technician, the patient was preparing for his test when he laid back on the table and went unresponsive, pulseless and apneic. CPR was initiated immediately and a CODE BLUE was called. Upon arrival, CPR was in progress. Bag valve ventilations were being performed. A code cart was brought to the MRI suite. He was placed on a monitor. He was asystolic. CPR was continued and the patient was given 1 mg of epinephrine. I prepared to intubate the patient. All the equipment was assembled. Endotracheal intubation: An 8.0 endotracheal tube was used along with a glide scope. The patient is morbidly obese with a BMI of 47.7. Bag valve ventilations were continued until I was prepared. Wayne scope was inserted and airway was visualized. The patient required suctioning with a portable suction device. Initial attempt at passing the endotracheal tube was unsuccessful as the patient began to bite down on my tube. The glide scope and tube were removed and the patient received bag valve ventilation again. The glide scope was cleaned off and intubation was attempted again. This time the tube passed easily. There was colorimetric change on the end-tidal CO2 detector. The balloon was inflated with the tube at 26 cm. There were breath sounds only noted on the right side. The balloon was deflated and the tube was pulled back to 23 cm where breath sounds could be heard bilaterally. The tube was secured in place. During endotracheal intubation, the patient began to bite down on the tube and compressions were stopped. The patient appeared to have an organized rhythm on the monitor and had easily palpable carotid and radial pulses. The second IV lock was initiated. The patient was receiving a 500 cc bolus of saline. He was given a dose of IV sodium bicarbonate. Labs were drawn and the patient will be transferred to the ICU. .
[2018-10-22 06:12] LABS: BUN Creatinine Ratio 35.3 (10-20); Calcium 9.1 mg/dl (8.5-10.1); Creatinine Clr Calc Pharmacy 59.3 ml/min; Est GFR (African American) 55.8; Est GFR (Non-African American) 48.1; Potassium 4.6 mmol/L (3.5-5.1)
[2018-10-22] MEDS ORDERED: fentaNYL citrate 100 MCG/2 ML VIAL ONE (06:15)
[2018-10-22] MEDS ORDERED: MIDAZOLAM HCL 5 MG/ML 1 ML VIAL ONE (06:16)
--- NOTE | 2018-10-22 06:28 | Procedure Note ---
Procedure Note Date of Service October 22, 2018 Procedure: Internal Jugular Central Line Placement Attending: Dr. Manriquez APC: Zay Gerber PA-C Indication: Central Drug Administration, Poor Venous Access, Multiple Lab Draws Necessary, etc. Anesthesia: Lidocaine 1% Emergent consent implied given the patient's current state of extremis with need for central access and pressor administration. A time-out was completed verifying correct patient, procedure, site, positioning , and implants(s) or special equipment if applicable. Patients RIGHT Neck was cleansed and draped in the typical sterile fashion using Chloraprep. The Internal Jugular Vein and Carotid Artery were identified using ultrasound. The superficial tissue was anesthetized using 5.0 mL of 1% lidocaine without epinephrine under direct visualization with the ultrasound. After adequate anesthetization was achieved, the Internal Jugular vein was cannulated under direct ultrasound guidance using an introducer needle on a syringe. Good venous blood return was maintained prior to removal of syringe from introducer needle. Using Seldinger Technique, a guide wire was advanced through the introducer needle without resistance. The introducer needle was removed and ultrasound images were obtained of the guide wire within the Internal Jugular Vein and saved to the patients medical record. A small incision was made in penetrating fashion at the guide wire insertion site utilizing an 11 blade scalpel. The dilator was advanced to the vessel without resistance. The dilator was exchanged for the triple lumen (Zoll Solex 7) catheter which was advanced into the vessel without resistance. The guide wire was removed intact from the catheter without issue. Claves were placed on each catheter tip with confirmation of good blood flow from each lumen. Each port was easily flushed with sterile saline. The catheter was placed at 16 cm and sutured in place. BioPatch was applied to the catheter and a sterile Tegaderm dressing was applied over the catheter with careful attention to sterility. Patient tolerated procedure well. No immediate complications were met. Post procedure x-ray was completed, placement was appropriate and no pneumothorax was noted. Images obtained are saved for permanent record Procedural Ultrasound Guidance: Procedure Date: 10/22/2018 Indication: Pressors Attending: Dr. Manriquez APC: Zay Gerber PA-C Artery AND Vein visualized: YES Compressible Vein: YES Guidewire or Short Catheter seen in vein prior to dilation: YES Line confirmed in Vein with ultrasound: YES Images obtained are saved for permanent record.
--- NOTE | 2018-10-22 07:00 | XRay Report ---
XR chest 1V portable CLINICAL HISTORY: post RIGHT IJ tube position COMPARISON STUDY: 08/05/2018 FINDINGS: Moderate cardiomegaly. Components of congestive heart failure present. Endotracheal tube 3 cm above the yoselin. Central catheter in proximal superior vena cava. No evidence pneumothorax. IMPRESSION: 1. Endotracheal tube 3 cm above the yoselin. 2. Internal jugular catheter are in superior vena cava. 3. Congestive failure. 4. Nasogastric tube inferior to the diaphragm The above report was generated using voice recognition software. It may contain grammatical, syntax or spelling errors. Electronically signed by: Jimmy Saab M.D. 10/22/2018 6:59 AM
[2018-10-22] MEDS: ASPIRIN 81 MG ECTAB PO SCH (07:12)
[2018-10-22 07:45] LABS: iSTAT Allen Test Pass; iSTAT Arterial Blood Gas HCO3 33 meg/L (19-24); iSTAT Carbon Dioxide 34 mEq/l (24-31); iSTAT FiO2 100 %
--- NOTE | 2018-10-22 07:48 | Procedure Note ---
Procedure Note Date of Service October 22, 2018 Procedure: Arterial Line Placement Attending: Dr. Manriquez APC: Zay Gerber PA-C Indication: Monitoring on Pressors Anesthesia: Lidocaine 1% Emergent consent implied second to patient's current state of extremis. A time-out was completed verifying correct patient, procedure, site, positioning , and implant(s) or special equipment if applicable. Allens test was performed to ensure adequate perfusion. Patients RIGHT wrist was prepped and draped in the usual sterile fashion. Ultrasound guidance was used to aid needle placement. A 20g Arrow arterial line was introduced into the RIGHT Radial artery. Catheter was threaded, and the needle was removed with appropriate blood return. Good waveform was observed. The patient tolerated the procedure well. Confirmation of placement with ultrasound. Blood Loss: Minimal Complications: None Procedural Ultrasound Guidance: Procedure Date: 10/22/2018 Indication: ABGs/Pressors Attending: Dr. Manriquez APC: Zay Gerber PA-C Artery Identified: YES Line confirmed in Artery with ultrasound: YES Complications: NONE Patient tolerated procedure: WELL
[2018-10-22] MEDS ORDERED: MIDAZOLAM HCL 1 MG/ML 2ML VIAL ONE (08:04)
[2018-10-22] MEDS ORDERED: fentaNYL citrate 100 MCG/2 ML VIAL IV PRN (08:04)
[2018-10-22] MEDS ORDERED: MIDAZOLAM HCL 1 MG/ML 2ML VIAL IV PRN ×2 (08:04→08:22)
[2018-10-22] MEDS: fentaNYL citrate 100 MCG/2 ML VIAL IV PRN ×2 (08:10→13:49)
--- NOTE | 2018-10-22 08:11 | Urology Progress Note ---
Date of Service October 22, 2018 Assessment & Plan (1) Nephrolithiasis: - pt encephalopathic after his most recent stone surgery - respiratory compromise has clearly been a major contributing factor, but UTI likely as well - asystolic today in MRI - recovered rhythm during code blue, hemodynamically stable at present - likely needs some further eval (MRI later today presuming he maintains stability) - further eval of some hemiplegia - cont critical care - no indication for further intervention now, but we will certainly follow closely with the critical care team Subjective Had been gradually progressing over the weekend - apparently had some R sided hemiplegia/decreased movements and was in MRI this AM for further evaluation when he went asystolic - code blue and intubation restored rhythm and respiratory status - now intubated and hemodynamically stabilized Physical Exam 2 Vital Signs (Past 24 Hours): Last Vital Signs Temp 36.6 C 10/22/18 03:02 Pulse 82 10/22/18 07:44 Resp 21 10/22/18 07:44 BP 182/84 H 10/22/18 03:02 Pulse Ox 93 10/22/18 07:44 Physical Exam: intubated eyes open, non-communicative RRR on monitor O2 sats stable abd soft lawson clear moderate lower extremity edema
[2018-10-22] MEDS: PANTOprazole 40 MG in SYRINGE 0 ML IV SCH ×2 (08:14→22:06)
[2018-10-22] MEDS: cefTRIAXone SODIUM 2,000 MG in DEXTROSE 5% 50 ML IV SCH (08:27)
--- NOTE | 2018-10-22 09:08 | CT Scan Report ---
CT head/brain wo con CLINICAL HISTORY: Right upper extremity weakness COMPARISON STUDY: 10/18/2018 TECHNIQUE: Axial CT of the brain is performed from the vertex to the skull base. IV contrast was not administered for this examination. A dose lowering technique was utilized adhering to the principles of ALARA. CT DOSE: 1853.87 mGycm FINDINGS: No intra or extra-axial mass lesions are visualized. There is no CT evidence of acute cortical infarc tion. There is no evidence of midline shift. There is no acute hemorrhage. No calvarial fractures ar e visualized. The examination is somewhat limited from a technical standpoint. There is no evidence of pathologic ventricular dilatation. There is no evidence of acute sinusitis IMPRESSION: No acute intracranial findings Electronically signed by: Cortez Paredes M.D. 10/22/2018 9:07 AM
[2018-10-22] MEDS: AMLODIPINE BESYLATE 5 MG TAB PO SCH (09:28)
[2018-10-22] MEDS: HEPARIN SOD 5,000 UNIT/0.5 ML VIAL SQ SCH ×2 (09:28→22:07)
[2018-10-22] MEDS: CARVEDILOL 25 MG TAB PO SCH ×2 (09:28→22:07)
[2018-10-22] MEDS: ALLOPURINOL 300 MG TAB PO SCH (09:29)
[2018-10-22] MEDS: INSULIN ASPART 100 UNITS/ML 3 ML PEN SC SCH ×4 (09:30→22:02)
[2018-10-22] MEDS: MODAFINIL 100 MG TAB PO SCH ×2 (09:35→09:42)
[2018-10-22] MEDS: MIDAZOLAM HCL 1 MG/ML 2ML VIAL IV PRN ×3 (10:47→14:56)
--- NOTE | 2018-10-22 10:51 | Nephrology Progress Note ---
Date of Service October 22, 2018 Assessment & Plan (1) Acute on chronic renal failure: -- SRAVANI related to dehydration. Creatinine has returned to baseline. Patient is nonoliguric -- Echocardiogram 10/21: LVEF 65 - 70%. RV not visualized due to body habitus. Patient may still have a component of pulmonary HTN -- Left ureteral stent in place and no significant evidence of persistent obstruction. -- Woodson catheter remains in place due to urinary retention. -- Will recheck PRP in am (2) Pyelonephritis: -- Blood and urine cultures from OSH positive for E coli. -- Currently being treated with ceftriaxone. (3) Nephrolithiasis, uric acid: (4) Atrial fibrillation: -- Exam not consistent with decompensated CHF. (5) S/P admission to ICU (intensive care unit): -- s/p CP arrest w/ successful resuscitation this am -- 30 min critical care time provided to the patient this am Subjective Mr. Yepez was seen & examined in the ICU this morning. His and family were present during my evaluation. Plan of care discussed w/ ICU team. Mr. Yepez developed R hemiplegia. He was taken to MRI this morning and suffered cardiopulmonary arrest. Mr. Yepez was successfully resuscitated and transported to the ICU for mechanical ventilation and ongoing medical management. Physical Exam 2 Vital Signs (Past 24 Hours): Last Vital Signs Temp 36.6 C 10/22/18 03:02 Pulse 73 10/22/18 10:15 Resp 21 10/22/18 07:44 BP 178/73 H 10/22/18 10:01 Pulse Ox 99 10/22/18 10:15 Constitutional: + obese Eyes: PERRL, conjunctivae normal, anicteric sclerae Neck: trachea midline, no thyromegaly + short neck Respiratory: symmetric chest movement Auscultation: + bronchovesicular breath sounds Cardiovascular: RRR, no murmur, no edema Gastrointestinal (Abdomen): Inspection/Auscultation: + hypoactive bowel sounds Results & Data Laboratory Results Laboratory Tests 10/22/18 10/22/18 04:44 04:44 WBC 15.69 H Hgb 10.0 L Hct 34.1 L Plt Count 412 H Sodium 142 Potassium 4.6 Chloride 106 Carbon Dioxide 31 BUN 49 H Creatinine 1.40 Glucose 276 H
--- NOTE | 2018-10-22 12:15 | Palliative Care Consultation ---
Date of Consultation October 22, 2018 Assessment & Plan (1) Goals of care, counseling/discussion: -This 78 year old male with PMH AVELINA refusing to wear cpap, spinal surgeries, kidney stones, afib/aflutter s/p ablation, CABG, htn, and others, presented to [facility] from [facility] with acute kidney injury related to bilateral nephrolithiasis. Patient had back surgery back in July at which time it was discovered that he had a very large kidney stone. He then had lithotripsy done to break the stone up. The procedure had to be repeated on . After that time, patient became weak and ill at home. He went to his PCP where his kidney function was found to be worsening and was referred to ED. Patients renal function apparently continued to worsen, and since he had his procedure done at OR, he was transferred. Upon arrival, patient was admitted to PCU and was treated for infection related to nephrolithasis. He was doing ok until early this morning when he went for MRI to rule out other issues that could be causing his infection and renal failure, when he suddenly went into cardiac arrest and was a code blue. He only required two minutes of CPR and ROSC was achieved. He is now intubated in the ICU in critical but stable condition. Cardiac arrest was thought to be due to respiratory failure related to his AVELINA and refusing to wear CPAP. Palliative care is consulted as patients family is stating, he would never want this. Discussed goals of care. -Met with patients , two daughter in laws, two granddaughters and a grandson, along with . Full medical update given and discussed the events that occurred last night and this morning. -Patients states he does have a living will which states that in end stage condition, he would not want any life prolonging measures. However, he would be okay with intubation and life saving measures in this situation as it is hopefully reversible. -Plan is to continue current care and hope for improvement. All family is on the same page. (2) Cardiac arrest: (3) AVELINA (obstructive sleep apnea): (4) Acute respiratory failure with hypoxia and hypercarbia: (5) Acute on chronic renal failure: Supervising Physician Co-Signing Physician Notes Late entry for visit conducted on 10/22 Pt seen and examined, returned to room when family present , including his , son and daughter in law Chart reviewed, pt examined. Pt extubated shortly prior to my exam PE: pt on O2 via mask, sedated Lungs: diminished BS bilaterally CV: RR Abd: soft, obese Ext: pitting edema Neuro: sedated, did not respond to voice or touch Agree with above note, assessment and plan as per FAHAD Wells. Will cont to follow and assist family with medical decision making History of Present Illness Attending Physician: Calvin Belle History of Present Illness This 78 year old male with PMH AVELINA refusing CPAP, CABG, chronic back pain, spinal surgeries, and others, presented from [facility] with acute kidney injury and nephrolithiasis. Patient just had second lithotripsy procedure here at OR on 10.09. At his PCPs office he was found to have worsening renal function and was referred to [place]. His condition ontinued to worsen so he was transferred to OR. Patient was doing okay until he had cardiac arrest in MRI machine. Palliative care is consulted to discuss goals of care with family. See A&P for details. Thank you kindly for this consult. We will follow. Allergies Allergy/AdvReac Type Severity Reaction Status Date / Time cyclobenzaprine AdvReac Severe disoriented Verified 10/09/18 08:15 & confused from [id number] Home Medications Home Medications Medication Instructions Recorded Confirmed Type amlodipine 5 mg PO QAM 06/11/18 10/18/18 History aspirin [Aspir-81] 81 mg PO QAM 06/11/18 10/18/18 History carvedilol 25 mg PO BID 06/11/18 10/18/18 History dulaglutide [Trulicity] 1 dose SUBCUT WK 06/11/18 10/18/18 History glyburide 5 mg PO QAM 06/11/18 10/18/18 History insulin glargine 26 unit SUBCUT HS 06/11/18 10/18/18 History insulin glargine 30 unit SUBCUT QAM 06/11/18 10/18/18 History omega [id number] oil [[place]-3] 1 dose PO BID 06/11/18 10/18/18 History glucosamine-chondroitin [Osteo 2 tab PO BID 08/23/18 10/18/18 History Bi-Flex] Justyna-C with Bioflavonoids 1 g PO BID 10/18/18 10/18/18 History mineral oil PO 10/18/18 History Patient History Medical History History of difficult intubation L2-S1 fusion 06/19/2014 - "poor visualization with MAC 4. Glidescope #4 utilized. Lg tongue with much soft tissue." Atrial fibrillation Anemia CHRONIC; BASELINE HGB 9-10 RANGE PER CHART REVIEW History of blood transfusion POST-OP CKD (chronic kidney disease) CREATININE BASELINE ~1.6 PER PCP History of atrial fibrillation S/P RADIOFREQUENCY ABLATION (2011) Dyslipidemia Prostate cancer (01/26/17) Hypertension Hx of atrial flutter 4:1 AV CONDUCTION Hx of sleep apnea NO DEVICE ("REFUSES CPAP") Diabetes mellitus, type 2 IDDM Osteoarthritis Spinal stenosis History of kidney stones Carotid artery stenosis S/P LEFT CEA (2006) Morbid obesity Coronary artery disease CABG x 2 (2006) Gout Hydronephrosis Surgical History H/O cardiac radiofrequency ablation S/P carotid endarterectomy LEFT (2006) S/P CABG x 2 (2006)- FRANCO-LAD; LAD-D1 SUB BRANCH History of cystoscopy WITH STENT= 08/06/18= MAC SEDATION AT [facility] History of open reduction and internal fixation (ORIF) procedure BILAT ANKLE - 1960'S History of lumbar fusion Family History Grandmother Diabetes Other Alzheimer disease Prostate cancer Social History Current Living Situation: Spouse Current Living Situation Comment: CURRENTLY AT [place] [facility] OP BACK FUSION 08/02/18 TILL 08/24/18 Other Information That Helps Us Care for You: No Feels Safe at Home: Yes Safety Concerns: Feels Safe At This Time Smoking Status: Never smoker Do You Dip or Chew Tobacco: No Second Hand Exposure: No Tobacco Cessation Education Requested by Patient: No Hx Alcohol Use: No Hx Substance Use: No Beliefs That Will Affect Care: None Communication Ability: Unable Review of Systems Unable to obtain due to intubation/sedation. Physical Exam 2 Vital Signs (Past 24 Hours): Last Vital Signs Temp 36.6 C 10/22/18 03:02 Pulse 73 10/22/18 10:15 Resp 12 10/22/18 11:20 BP 178/73 H 10/22/18 10:01 Pulse Ox 99 10/22/18 10:15 Constitutional: + morbidly obese (No acute distress) ENMT: external ear and nose normal, oropharynx normal Neck: normal visual inspection and trachea midline Respiratory: normal respiratory effort Auscultation: + diminished lung sounds and + rhonchi on mechanical ventilator via ETT Cardiovascular: Rate/Rhythm: regular rate and regular rhythm Extremities: + edema (Generalized edema) Gastrointestinal (Abdomen): Inspection/Auscultation: abdomen normal to inspection and + abdomen distended (Obesely distended) Neurologic: + obtunded (Sedated on ventilator but is moving all extremities) Time Spent Midlevel 80 minutes with greater than 50% of time spent at bedside with patient and family discussing condition and goals of care.
--- NOTE | 2018-10-22 12:26 | Critical Care Consultation ---
Date of Consultation October 22, 2018 Assessment & Plan (1) Metabolic encephalopathy: 78-year-old male admitted on 18 October 2018 for confusion and ataxia. Transferred to ICU on s/p code blue for brief asystolic cardiopulmonary arrest. 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 CT head non-acute. Now concerns about right-sided motor deficits. Repeat CT head still no acute findings. Presently sedated on fentanyl and Versed. Also on scheduled Seroquel. - Still goal for brain MRI. Pulm: Acute on chronic hypercapnic respiratory failure. Severe AVELINA (declined BiPAP as outpt). intubated as part of code blue. See related pulm notes. CVS: Initially no acute issues. echo with normal LV, EF 65-70%. PMH CAD (s/p CABG) and afib. PMH HTN, on amolodipine, ASA, coreg. Had about two minute asystolic event early . Presently in sinus bradycardia. ID: Concern for pyelonephritis. OSH BCx and UCx positive for E coli (pending sensitivity results). Started on cefepime, switched to ceftriaxone. Afebrile. WBC elevated s/p CPR. - repeating BCx, UCx, and sputum culture. Endo: DM 2, on insulin at home. Here on insulin sliding scale. Renal/Lytes: underwent left kidney lithotripsy and stent placement. Mild left hydronephrosis on renal u/s. No acute intervention needed per urology. Acute on CKD III (baseline Cr ~1.3). See nephro notes. Woodson cath in place. GI: On pantoprazole IV BID. Morbid obesity. Will start on tube feeds while intubated. Heme: Admit Hb around 8.5, since improved. On protonix. DVT prophy: Hx afib, previously no anticoagulation due to recent history of falls. Here is on heparin 5000 units SQ q12h. Other: PMH gout. On allopurinol. Lines: right IJ TLC placed, right radial arterial line, PIV, OGT. Code status: Full code. PT/OT: Deferred. Disposition: Critically ill. ICU care. - Family discussions for goals of care in progress. (2) Acute respiratory failure with hypoxia and hypercarbia: (3) Right sided weakness: (4) AVELINA (obstructive sleep apnea): (5) HTN (hypertension): (6) Coronary artery disease: (7) Atrial fibrillation: (8) Asystole: (9) Pyelonephritis: (10) Diabetes mellitus, type 2: (11) History of kidney stones: (12) Hydronephrosis determined by ultrasound: (13) SRAVANI (acute kidney injury): (14) CKD (chronic kidney disease), stage III: (15) Morbid obesity: (16) Anemia: (17) Gout: Supervising Physician Co-Signing Physician Notes Dr. Serna was resident physician during care of patient. I separately evaluated patient for dewey portions of the history and the exam. I was present during the critical portion of medical decision making, and I discussed the case with the resident. I generally agree with the findings and plan. CT brain completed, unremarkable MRI completed largely unremarkable as well. Had extensive discussion with family regarding goals of care. Patient was able to be successfully extubated later, I believe his etiology of his arrest was largely respiratory related in the setting of renal insufficiency and narcotic use with significant obstructive sleep apnea and likely obesity hypoventilation syndrome. I have personally spent 95 minutes of critical care time in the direct management of this patient. This is a life/limb threatening event. This includes time spent evaluating patient, direct bedside care, chart review, placing orders, interpretation of diagnostic studies, discussion with consultants, patient, and/or family members regarding treatment decisions, as well as other required patient management activities. This time is exclusive of all separately billable procedures, and teaching time and separate from and in addition to any other critical care service time. History of Present Illness Attending Physician: Calvin Belle History of Present Illness 78-year-old male was initially admitted on 18 October 2018 for confusion and ataxia. On he had undergone a left kidney lithotripsy and stent placement. Reportedly he had confusion since that time. During his admission, he was being treated with Rocephin for reportedly positive blood and urine cultures from [facility]. Urology consult here noted no need for acute intervention and some left mild hydronephrosis is seen on renal u/s. He was also being treated for metabolic encephalopathy secondary to acute hypercapnic respiratory failure and history of severe AVELINA. Overnight - patient was sent for MRI head (for evaluation of encephalopathy and PMH afib) and noted to have a code blue asystolic arrest for approximately 2 minutes. CPR was provided, then intubated. At some point patient was noted to have possible decreased right arm and leg movement. Patient is presently intubated. Reportedly prior to starting sedation, patient would open his eyes with right pupil larger than left. Reportedly would move his right leg and left side but did not move his right arm as much. Allergies Allergy/AdvReac Type Severity Reaction Status Date / Time cyclobenzaprine AdvReac Severe disoriented Verified 10/09/18 08:15 & confused from [id number] Home Medications Home Medications Medication Instructions Recorded Confirmed Type amlodipine 5 mg PO QAM 06/11/18 10/18/18 History aspirin [Aspir-81] 81 mg PO QAM 06/11/18 10/18/18 History carvedilol 25 mg PO BID 06/11/18 10/18/18 History dulaglutide [Trulicity] 1 dose SUBCUT WK 06/11/18 10/18/18 History glyburide 5 mg PO QAM 06/11/18 10/18/18 History insulin glargine 26 unit SUBCUT HS 06/11/18 10/18/18 History insulin glargine 30 unit SUBCUT QAM 06/11/18 10/18/18 History omega [id number]-[id number] oil [[place]-3] 1 dose PO BID 06/11/18 10/18/18 History glucosamine-chondroitin [Osteo 2 tab PO BID 08/23/18 10/18/18 History Bi-Flex] Justyna-C with Bioflavonoids 1 g PO BID 10/18/18 10/18/18 History mineral oil PO 10/18/18 History Patient History Medical History History of difficult intubation L2-S1 fusion 06/19/2014 - "poor visualization with MAC 4. Glidescope #4 utilized. Lg tongue with much soft tissue." Atrial fibrillation Anemia CHRONIC; BASELINE HGB 9-10 RANGE PER CHART REVIEW History of blood transfusion POST-OP CKD (chronic kidney disease) CREATININE BASELINE ~1.6 PER PCP History of atrial fibrillation S/P RADIOFREQUENCY ABLATION (2011) Dyslipidemia Prostate cancer (01/26/17) Hypertension Hx of atrial flutter 4:1 AV CONDUCTION Hx of sleep apnea NO DEVICE ("REFUSES CPAP") Diabetes mellitus, type 2 IDDM Osteoarthritis Spinal stenosis History of kidney stones Carotid artery stenosis S/P LEFT CEA (2006) Morbid obesity Coronary artery disease CABG x 2 (2006) Gout Hydronephrosis Surgical History H/O cardiac radiofrequency ablation S/P carotid endarterectomy LEFT (2006) S/P CABG x 2 (2006)- FRANCO-LAD; LAD-D1 SUB BRANCH History of cystoscopy WITH STENT= 08/06/18= MAC SEDATION AT [facility] History of open reduction and internal fixation (ORIF) procedure BILAT ANKLE - 1960'S History of lumbar fusion Family History Grandmother Diabetes Other Alzheimer disease Prostate cancer Social History Current Living Situation: Spouse Current Living Situation Comment: CURRENTLY AT [facility] POST OP BACK FUSION 08/02/18 TILL 08/24/18 Other Information That Helps Us Care for You: No Feels Safe at Home: Yes Safety Concerns: Feels Safe At This Time Smoking Status: Never smoker Do You Dip or Chew Tobacco: No Second Hand Exposure: No Tobacco Cessation Education Requested by Patient: No Hx Alcohol Use: No Hx Substance Use: No Beliefs That Will Affect Care: None Communication Ability: Unable Review of Systems Unable to obtain due to being intubated. Physical Exam 2 Vital Signs (Past 24 Hours): Last Vital Signs Temp 36.6 C 10/22/18 03:02 Pulse 73 10/22/18 10:15 Resp 12 10/22/18 11:20 BP 178/73 H 10/22/18 10:01 Pulse Ox 99 10/22/18 10:15 Physical Exam: General Appearance: Intubated and sedated. CV: +S1S2 borderline but regular bradycardia, no murmur. Pulm: Dimished breath sounds throughout. Abdomen: +BS, soft, non-tender, non-distended. Extremities: No pedal edema or calf tenderness. Moving all extremities naturally and easily. Neuro: Unable to assess due to sedation. Results & Data Laboratory Results 10/22/18 10/22/18 10/22/18 Range/Units 11:17 07:33 07:31 WBC (4.8-10.8) K/uL RBC (4.7-6.1) M/uL Hgb (14.0-18.0) g/dL Hct (42-52) % MCV (80-100) fL MCH (25-34) pg MCHC (32-36) g/dL RDW Std Deviation (36.4-46.3) fL RDW Coeff of Poly (11.5-14.5) % Plt Count (130-400) K/uL MPV (7.4-10.4) fL Absolute Nucleated RBC (0-0) K/uL Nucleated RBC % (auto) % Sample Site Art Line POC pH 7.38 (7.35-7.45) POC pCO2 55 H (35-46) mmHg POC pO2 75 L (80-95) mmHg POC HCO3 33 H (19-24) mitchell/L POC Total CO2 34 H (24-31) mEq/l POC Base Excess 8.0 H (-9-1.8) mitchell/L POC ABG O2 Sat 94.0 (90-95) % Philipp Test Pass O2 Delivery Device Ventilator POC O2 Rate 18 Minute Ventilation 10.9 POC FiO2 100 % Tidal Volume 550 PEEP 8 Sodium (136-145) mmol/L Potassium (3.5-5.1) mmol/L Chloride (98-107) mmol/L Carbon Dioxide (21-32) mmol/L Anion Gap (3-11) BUN (7-18) mg/dl Creatinine (0.6-1.4) mg/dl Est Cr Clr Drug Dosing ml/min Est GFR ( Amer) Est GFR (Non-Af Amer) BUN/Creatinine Ratio (10-20) Glucose (70-99) mg/dl POC Glucose 215 H 263 H (70-99) Calcium (8.5-10.1) mg/dl 10/22/18 10/22/18 10/21/18 Range/Units 04:44 04:44 20:31 WBC 15.69 H (4.8-10.8) K/uL RBC 3.75 L (4.7-6.1) M/uL Hgb 10.0 L (14.0-18.0) g/dL Hct 34.1 L (42-52) % MCV 90.9 (80-100) fL MCH 26.7 (25-34) pg MCHC 29.3 L (32-36) g/dL RDW Std Deviation 56.8 H (36.4-46.3) fL RDW Coeff of Poly 17.1 H (11.5-14.5) % Plt Count 412 H (130-400) K/uL MPV 10.2 (7.4-10.4) fL Absolute Nucleated RBC 0.08 H (0-0) K/uL Nucleated RBC % (auto) 0.5 % Sample Site POC pH (7.35-7.45) POC pCO2 (35-46) mmHg POC pO2 (80-95) mmHg POC HCO3 (19-24) mitchell/L POC Total CO2 (24-31) mEq/l POC Base Excess (-9-1.8) mitchell/L POC ABG O2 Sat (90-95) % Philipp Test O2 Delivery Device POC O2 Rate Minute Ventilation POC FiO2 % Tidal Volume PEEP Sodium 142 (136-145) mmol/L Potassium 4.6 (3.5-5.1) mmol/L Chloride 106 (98-107) mmol/L Carbon Dioxide 31 (21-32) mmol/L Anion Gap 5.0 (3-11) BUN 49 H (7-18) mg/dl Creatinine 1.40 (0.6-1.4) mg/dl Est Cr Clr Drug Dosing 59.3 ml/min Est GFR ( Amer) 55.8 Est GFR (Non-Af Amer) 48.1 BUN/Creatinine Ratio 35.3 H (10-20) Glucose 276 H (70-99) mg/dl POC Glucose 181 H (70-99) Calcium 9.1 (8.5-10.1) mg/dl 10/21/18 Range/Units 16:16 WBC (4.8-10.8) K/uL RBC (4.7-6.1) M/uL Hgb (14.0-18.0) g/dL Hct (42-52) % MCV (80-100) fL MCH (25-34) pg MCHC (32-36) g/dL RDW Std Deviation (36.4-46.3) fL RDW Coeff of Poly (11.5-14.5) % Plt Count (130-400) K/uL MPV (7.4-10.4) fL Absolute Nucleated RBC (0-0) K/uL Nucleated RBC % (auto) % Sample Site POC pH (7.35-7.45) POC pCO2 (35-46) mmHg POC pO2 (80-95) mmHg POC HCO3 (19-24) mitchell/L POC Total CO2 (24-31) mEq/l POC Base Excess (-9-1.8) mitchell/L POC ABG O2 Sat (90-95) % Philipp Test O2 Delivery Device POC O2 Rate Minute Ventilation POC FiO2 % Tidal Volume PEEP Sodium (136-145) mmol/L Potassium (3.5-5.1) mmol/L Chloride (98-107) mmol/L Carbon Dioxide (21-32) mmol/L Anion Gap (3-11) BUN (7-18) mg/dl Creatinine (0.6-1.4) mg/dl Est Cr Clr Drug Dosing ml/min Est GFR ( Amer) Est GFR (Non-Af Amer) BUN/Creatinine Ratio (10-20) Glucose (70-99) mg/dl POC Glucose 248 H (70-99) Calcium (8.5-10.1) mg/dl Medications Administered Current Inpatient Medications Allopurinol (Zyloprim) 300 mg PO QAM [facility] Stop: 11/18/18 08:59 Last Admin: 10/22/18 09:29 Dose: 300 mg Amlodipine Besylate (Norvasc) 5 mg PO QAM [facility] Stop: 11/18/18 08:59 Last Admin: 10/22/18 09:28 Dose: 5 mg Aspirin (Ecotrin Ectab) 81 mg PO QAM [facility] Stop: 11/18/18 08:59 Last Admin: 10/22/18 07:12 Dose: Not Given Carvedilol (Coreg) 25 mg PO BID [facility] Stop: 11/17/18 20:59 Last Admin: 10/22/18 09:28 Dose: 25 mg Dextrose (Dextrose 50%) 25 - 50 ml IV UD PRN; Protocol PRN Reason: Hypoglycemia Protocol Stop: 11/17/18 17:58 Last Admin: 10/20/18 07:51 Dose: 25 ml Fentanyl Citrate (Fentanyl Citrate) 50 mcg IV Q2H PRN PRN Reason: Moderate Pain (4,5,6) Stop: 11/05/18 08:03 Last Admin: 10/22/18 10:47 Dose: 50 mcg Fentanyl Citrate (Fentanyl Citrate) 100 mcg IV Q2H PRN PRN Reason: Severe Pain (7,8,9,10) Stop: 11/05/18 08:03 Last Admin: 10/22/18 08:10 Dose: 100 mcg Glucagon (Glucagen) 1 mg SQ UD PRN; Protocol PRN Reason: Hypoglycemia Protocol Stop: 11/17/18 17:58 Last Admin: 10/19/18 12:03 Dose: 1 mg Glucose (Glucose 40%) 15 - 30 gm PO UD PRN; Protocol PRN Reason: Hypoglycemia Protocol Stop: 11/17/18 17:58 Last Admin: 10/20/18 07:08 Dose: 15 gm Glucose (Dex4 Glucose) 4 - 8 tabs PO UD PRN; Protocol PRN Reason: Hypoglycemia Protocol Stop: 11/17/18 17:58 Haloperidol Lactate (Haldol) 1 mg IV Q1H PRN PRN Reason: Agitation Stop: 11/20/18 09:26 Last Admin: 10/21/18 23:43 Dose: 1 mg Heparin Sodium (Porcine) (Heparin Sodium (Porcine)) 7,500 units SQ Q12 SARITA Stop: 11/19/18 20:59 Pantoprazole Sodium 40 mg/ (Syringe) 10 mls @ 5 mls/min IV BID SARITA Stop: 11/17/18 20:59 Last Admin: 10/22/18 08:14 Dose: 5 mls/min Ceftriaxone Sodium 2,000 mg/ (Dextrose) 70 mls @ 100 mls/hr IV DAILY SARITA; Protocol Stop: 10/29/18 20:29 Last Infusion: 10/22/18 09:42 Dose: Infused Acetaminophen (Ofirmev) 1,000 mg in 100 mls @ 400 mls/hr IV Q8H PRN PRN Reason: Pain Stop: 11/20/18 09:59 Last Infusion: 10/21/18 12:03 Dose: Infused Insulin Aspart (Novolog Flexpen) 0 units SC ACHS SARITA Stop: 11/17/18 20:59 Last Admin: 10/22/18 11:28 Dose: 3 units Insulin Glargine (Lantus Solostar Pen) 10 units SC HS SARITA Stop: 11/18/18 20:59 Last Admin: 10/19/18 20:09 Dose: 10 units Lidocaine (Lidoderm 5%) 1 patch TD DAILY@2100 SARITA Stop: 11/19/18 20:59 Last Admin: 10/21/18 20:01 Dose: 1 patch Midazolam HCl (Versed) 1 mg IV Q2H PRN PRN Reason: agitation/anxiety Stop: 11/21/18 08:03 Midazolam HCl (Versed) 2 mg IV Q2H PRN PRN Reason: agitation/anxiety Stop: 11/21/18 08:03 Last Admin: 10/22/18 10:47 Dose: 2 mg Midazolam HCl (Versed) 4 mg IV ONCE PRN PRN Reason: Agitation Stop: 11/21/18 08:21 Miscellaneous (Carbohydrates For Hypoglycemia) 15 - 30 gm PO UD PRN PRN Reason: Hypoglycemia Treatment Stop: 11/17/18 17:58 Miscellaneous (Remove Lidoderm Patch) 1 ea N/A DAILY@0900 [facility] Stop: 11/20/18 08:59 Last Admin: 10/22/18 09:29 Dose: 1 ea Modafinil (Provigil) 100 mg PO QAM [facility] Stop: 11/20/18 08:59 Last Admin: 10/22/18 09:42 Dose: Not Given Nitroglycerin (Nitrostat) 0.4 mg SL UD PRN PRN Reason: Chest Pain Stop: 11/17/18 17:52 Ondansetron HCl (Zofran) 4 mg IV Q6H PRN PRN Reason: Nausea Stop: 11/17/18 17:52 Last Admin: 10/19/18 21:42 Dose: 4 mg Quetiapine Fumarate (Seroquel) 25 mg PO HS [facility] Stop: 11/20/18 20:59 Last Admin: 10/21/18 20:03 Dose: 25 mg Resident Activity Tracking Resident Involvement: Resident Care Provided Care Provided: Adult Hospital Medicine
[2018-10-22] MEDS ORDERED: PEPTAMEN INTENSE VHP 1.0 CAL 1,000 ML BAG OG SCH (14:30)
--- NOTE | 2018-10-22 14:47 | Magnetic Resonance Report ---
MR brain wo con HISTORY: 78 years-old Male eval for CVA acute strokelike symptoms. Acutely altered mental status COMPARISON: CT head of same day TECHNIQUE: Multiplanar multisequence MRI of the brain was obtained without the use of IV contrast. FINDINGS: Motion degraded exam. Hvac Engineer localizer images demonstrate no gross extracranial abnormality. Note is m brittanie of an endotracheal tube. There is no restricted diffusion to suggest acute or subacute infarction. Midline structures includin g the corpus callosum, brainstem, optic chiasm, pituitary gland, infundibulum, pineal gland and cereb ellar tonsils appear unremarkable the sagittal T1 series. Degenerative changes are noted about the im aged cervical spine. There is no acute intracranial hemorrhage, midline shift, abnormal extra axial collections, hydroceph alus or intracranial mass. There is only minimal scattered T2/FLAIR hyperintensities about the white matter of the cerebral hemisphere bilaterally suggestive of chronic microvascular ischemic changes. M ild age-related involutional changes. Major flow voids appear patent. Bilateral mastoid effusions. Se cretions are seen about the nasopharynx with mild mucosal thickening of the ethmoid air cells, maxill mykel, sphenoid and frontal sinuses. Skull, orbits and soft tissues are unremarkable. IMPRESSION: 1. Motion degraded exam. 2. No acute intracranial abnormality identified. 3. Suggestion of minimal chronic microvascular ischemic changes. The above report was generated using voice recognition software. It may contain grammatical, syntax o r spelling errors. Electronically signed by: Ian Smyth M.D. 10/22/2018 2:46 PM
--- NOTE | 2018-10-22 16:36 | Ultrasound Report ---
BILATERAL LOWER EXTREMITY VENOUS DOPPLER CLINICAL HISTORY: Lower extremity swelling. Evaluate for deep venous thrombus. COMPARISON STUDY: Bilateral lower extremity venous Doppler August 06, 2018. TECHNIQUE: Sonography of the deep venous system of the bilateral lower extremities was performed. Co mpression and augmentation were evaluated. FINDINGS: The bilateral common femoral, superficial femoral and popliteal veins were compressible. A ugmentation was normal. Flow was shown within the deep calf vessels although the calf vessels were corrales boptimally assessed due to suboptimal penetration. 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 IMPRESSION: 1. No evidence of deep venous thrombus within the bilateral lower extremities. 2. 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 Electronically signed by: Adelfo Garcia M.D. 10/22/2018 4:34 PM
[2018-10-22] MEDS: ACETAMINOPHEN 1,000 MG/100 ML VIAL IV PRN (18:42)
--- NOTE | 2018-10-22 20:50 | Critical Care Progress Note ---
Date of Service October 22, 2018 Subjective I was approached by nursing staff as the patient's is present and was discussed resuscitative orders. With the patient's and son at bedside, we did fill out a POLST form. She did have a living will present at bedside which did reflect all of the stated discussion points. At this point, they are comfortable with continuing with current treatment, however they did not wish to proceed with escalation of care in the event of any change. Of note, they did not wish for CPAP or BiPAP to be placed on the patient. This was documented on the POLST form as such. At this point, it was agreed upon that the patient will be a DO NOT RESUSCITATE/DO NOT INTUBATE at family request as reflection of the patient's previous wishes. Form was signed by myself as well as the patient's . Her son was present during this and in complete agreement. Orders were changed in the computer to reflect DNR/DNI wishes. Physical Exam 2 Vital Signs (Past 24 Hours): Last Vital Signs Temp 36.6 C 10/22/18 03:02 Pulse 63 10/22/18 18:15 Resp 28 H 10/22/18 18:15 BP 165/89 H 10/22/18 18:01 Pulse Ox 95 10/22/18 18:15
--- NOTE | 2018-10-22 21:39 | Hospitalist Progress Note ---
Date of Service October 22, 2018 Assessment & Plan (1) Respiratory acidosis: Metabolic encephalopathy secondary to acute hypercarbic respiratory failure and/or pyelonephritis and/or acute renal failure Patient has h/o sleep apnea/narcotics use, obesity and renal failure. This all likely contributed to his worsening respiratory acidosis. Patient is currently intubated s/p code blue. Patient also has acute kidney failure on top of chronic kidney disease stage III May consider extubation later today. will defer to critical care team. \ (2) Pyelonephritis: Patient reportedly has acute pyelonephritis of blood and urine cultures positive for E. coli cultures initiated on cefepime however sensitivities suggest that Rocephin will better LOYDA he was changed to Rocephin 19 October at 2 g daily, ultrasound does not show obstruction of the left ureter just some residual stone debris. Urology is visited the patient does not feel any intervention is required (3) Acute on chronic renal failure: acute on chronic kidney disease stage 3 patient continues to have improvement of his creatinine with sluggish reduction in his BUN. nephrology is following and maintaining management of his IV fluids and acid base disorder with exception of his respiratory acidosis (4) Hydronephrosis with renal calculous obstruction: Reportedly the patient has mild hydronephrosis without complete obstruction seen at [facility] repeat ultrasound there is also without significant abnormalities urology does not feel intervention is acquired (5) Anemia: Patient's hemoglobin remains in the 8 g range we do not feel he is having an acute GI bleed at this time he will be maintained on Protonix 40 twice daily (6) Diabetes mellitus, type 2: Patient typically takes Lantus and Trulicity for blood pressure control there is some documentation that he may have may or may not be on glyburide also. Patient had persistent problems with hypoglycemia and Lantus will be discontinued altogether on 10/20 and will just be on sliding scale (7) Encephalopathy: Patient has encephalopathy initially was thought to be secondary to infectious etiologies or perhaps his acidosis patient remains with significant encephalopathy his acidosis does continue which could affect this. His infection should be treated his CT scan was without gross abnormalities but with his history of atrial fibrillation we will try to pursue an MRI of his brain his agitation is prevented this. Will use Haldol as restraints in hopes we can control his behavior enough to pursue MRI scan Currently however patient is intubated. will reassess once patient awakes. (8) DVT prophylaxis: Will have chemoprophylaxis initiated (9) Coronary artery disease: Patient has history of coronary artery disease will be maintained on his carvedilol and amlodipine aspirin was previously on his med reconciliation this would continue 81 mg daily Spent 35 minutes in management of patient. This included discussion with specialists, chart reviwe and encounter with patient. Subjective Patient was seen in AM. Patient is intubated after sustaining a cardiac arrest. Code aLlo was called earlier today. Unable to obtain history and ROS from patient. Physical Exam 2 Vital Signs (Past 24 Hours): Last Vital Signs Temp 36.6 C 10/22/18 03:02 Pulse 63 10/22/18 18:15 Resp 28 H 10/22/18 18:15 BP 165/89 H 10/22/18 18:01 Pulse Ox 95 10/22/18 18:15 Physical Exam: The patient appeared well nourished and normally developed. Patient is currently on a mechanical ventilator. Head exam is unremarkable. normocephalic, atraumatic Neck is with a 2 cm jugular venous distension, thyromegaly, or lymphademopathy Lungs are with diminished breath sounds throughout but no focal rales or air loss or wheeze Cardiac exam reveals Rhythm is regular. First and second heart sounds normal. Abdominal exam reveals normal bowel sounds, no masses, no organomegaly Extremities are mildly edematous and both pedal pulses are present Neurologic exam is intubated. Skin is warm Dry without bruises or lesions
[2018-10-22] MEDS: LIDOCAINE 5% 1 PATCH TD SCH (22:06)
[2018-10-22] MEDS: QUETIAPINE FUMARATE 25 MG TABLET PO SCH (22:07)
[2018-10-23 04:59] LABS: Hematocrit (blood only) 31.1 % (42-52); Hemoglobin 9.1 g/dL (14.0-18.0); Mean Corpuscular Hgb Conc 29.3 g/dL (32-36); Mean Platelet Volume 9.5 fL (7.4-10.4); Platelet Count 274 K/uL (130-400); RDW Coefficient of Variation 17.1 % (11.5-14.5); RDW Standard Deviation 57.5 fL (36.4-46.3); Red Blood Count 3.38 M/uL (4.7-6.1)
[2018-10-23 05:16] LABS: BUN Creatinine Ratio 42.6 (10-20); Creatinine Clr Calc Pharmacy 72.2 ml/min; Est GFR (Non-African American) 60.4; Phosphorus 3.7 mg/dl (2.5-4.9); Potassium 4.6 mmol/L (3.5-5.1)
[2018-10-23] MEDS: INSULIN ASPART 100 UNITS/ML 3 ML PEN SC SCH ×4 (08:53→21:12)
--- NOTE | 2018-10-23 09:18 | Operative Report ---
Post Operative Report Surgeon Carlos Willis MD INDICATIONS: The patient has been diagnosed with an adenocarcinoma of the prostate and has elected to undergo transperineal brachytherapy as part of his treatment and is being brought in now for the procedure. OPERATION AND FINDINGS: The patient was correctly identified and brought to the outpatient surgery suite. After the induction of an adequate level of anesthesia, the patient was placed in the dorsal lithotomy position. The patient's lower abdomen, genitalia, and perineum were then prepped with Hibiclens. A Woodson catheter was then inserted per the urethra into the bladder using usual sterile technique and the urine was drained and then 100 mL of mixture of saline and iodinated contrast material was instilled through the Woodson into the bladder. Aerated gel was then placed within the lumen of the catheter, and the catheter was then plugged. The patient's scrotum was then taped upward using a Steri-Drape to keep it out of the way of the perineum. A transrectal ultrasound probe was then gently inserted into the patient's rectum and attached to the brachytherapy sled, and adjustments were made to the brachytherapy sled using the template projected on the ultrasound screen to get the transrectal probe and the image of the prostate into the proper position. After getting the probe adjusted properly, the prostate was scanned from its base to its apex with the images being transmitted to the treatment planning computer. While the radiation oncologist and physicist were performing a live implant plan , empty needles were placed through the template and positioned in the prostate around the entire periphery of the prostate. Each needle was spaced approximately 1 cm apart from its neighbor and again this was done circumferentially around the prostate. At this point, [] used a LOYDA applicator to place the seeds into the prostate through these peripherally placed needles with the number and position of the seeds based on the plan that had just been created. This was done live so live dosimetry was being calculated with each seed placement. After the peripheral seeds were placed and all the peripheral needles removed, the radiation oncologist and physicist then planned for the central needles and these needles were placed in their proper positions based on the plan. After completing this portion, again the case was turned over to [] for placement of the central seeds. A total number of [] needles were used to implant [] CS 131 seeds. After completing the implant, a fluoroscopic image was taken to check to make sure that there were no seeds placed within the bladder and a final picture was taken of this. One final inspection was then done looking at the plan and the seed implant and after completion of this final inspection the transrectal probe was removed. The patient's bladder was drained through the Woodson catheter. A [place] counter was used to check for any radioactivity remaining in the needles and in the urine. The Woodson catheter was then left indwelling. The patient's perineum was then washed and dried, and an antibiotic ointment was applied. The patient tolerated the procedure well and was transferred to the Recovery Room in stable condition. INDICATIONS: The patient has been diagnosed with an adenocarcinoma of the prostate and has elected to undergo transperineal brachytherapy as part of his treatment and is being brought in now for the procedure. OPERATION AND FINDINGS: The patient was correctly identified and brought to the outpatient surgery suite. After the induction of an adequate level of anesthesia, the patient was placed in the dorsal lithotomy position. The patient's lower abdomen, genitalia, and perineum were then prepped with Hibiclens. A Woodson catheter was then inserted per the urethra into the bladder using usual sterile technique and the urine was drained and then 100 mL of mixture of saline and iodinated contrast material was instilled through the Woodson into the bladder. Aerated gel was then placed within the lumen of the catheter, and the catheter was then plugged. The patient's scrotum was then taped upward using a Steri-Drape to keep it out of the way of the perineum. A transrectal ultrasound probe was then gently inserted into the patient's rectum and attached to the brachytherapy sled, and adjustments were made to the brachytherapy sled using the template projected on the ultrasound screen to get the transrectal probe and the image of the prostate into the proper position. After getting the probe adjusted properly, the prostate was scanned from its base to its apex with the images being transmitted to the treatment planning computer. While the radiation oncologist and physicist were performing a live implant plan, empty needles were placed through the template and positioned in the prostate around the entire periphery of the prostate. Each needle was spaced approximately 1 cm apart from its neighbor and again this was done circumferentially around the prostate. At this point, [] used a LOYDA applicator to place the seeds into the prostate through these peripherally placed needles with the number and position of the seeds based on the plan that had just been created. This was done live so live dosimetry was being calculated with each seed placement. After the peripheral seeds were placed and all the peripheral needles removed, the radiation oncologist and physicist then planned for the central needles and these needles were placed in their proper positions based on the plan. After completing this portion, again the case was turned over to [] for placement of the central seeds. A total number of 15 needles were used to implant 44 CS 131 seeds. After completing the implant, a fluoroscopic image was taken to check to make sure that there were no seeds placed within the bladder and a final picture was taken of this. One final inspection was then done looking at the plan and the seed implant and after completion of this final inspection the transrectal probe was removed. The patient's bladder was drained through the Woodson catheter. A [place] counter was used to check for any radioactivity remaining in the needles and in the urine. The Woodson catheter was then left indwelling. The patient's perineum was then washed and dried, and an antibiotic ointment was applied. The patient tolerated the procedure well and was transferred to the Recovery Room in stable condition. I attest to the content of the Intraoperative Record and any orders documented therein. Any exceptions are noted below.
--- NOTE | 2018-10-23 09:35 | Nephrology Progress Note ---
Date of Service October 23, 2018 Assessment & Plan (1) Acute on chronic renal failure: -- SRAVANI has resolved. Creatinine has returned to baseline. Patient is nonoliguric. Volume status and electrolyte balance are acceptable at this time -- Echocardiogram 10/21: LVEF 65 - 70%. RV not visualized due to body habitus. Patient may still have a component of pulmonary HTN -- Left ureteral stent in place and no significant evidence of persistent obstruction. -- Woodson catheter remains in place due to urinary retention. -- No further nephrology evaluation indicated at this time. Will sign off. Please call if further assistance is needed. (2) Nephrolithiasis, uric acid: (3) Atrial fibrillation: Subjective Mr. Yepez was seen & examined in the ICU this morning. Plan of care discussed w/ ICU team. Mr. Yepez is awake and alert this morning. He is off pressor support and breathing comfortably on O2 via face mask. Physical Exam 2 Vital Signs (Past 24 Hours): Last Vital Signs Temp 37 C 10/23/18 03:00 Pulse 59 L 10/23/18 03:00 Resp 20 10/23/18 03:00 BP 173/68 H 10/23/18 03:00 Pulse Ox 95 10/23/18 03:00 Constitutional: + obese Eyes: PERRL, conjunctivae normal, anicteric sclerae Neck: trachea midline, no thyromegaly + short neck Respiratory: symmetric chest movement Auscultation: lungs clear to auscultation bilaterally Cardiovascular: RRR, no murmur, no edema Gastrointestinal (Abdomen): Inspection/Auscultation: + hypoactive bowel sounds Results & Data Laboratory Results Laboratory Tests 10/23/18 10/23/18 04:43 04:43 Hgb 9.1 L Hct 31.1 L Plt Count 274 Sodium 144 Potassium 4.6 Chloride 107 Carbon Dioxide 37 H BUN 49 H Creatinine 1.16 Glucose 164 H Calcium 9.0
[2018-10-23] MEDS: CARVEDILOL 25 MG TAB PO SCH ×2 (10:04→21:10)
[2018-10-23] MEDS: PANTOprazole 40 MG in SYRINGE 0 ML IV SCH (10:04)
[2018-10-23] MEDS: ALLOPURINOL 300 MG TAB PO SCH (10:04)
[2018-10-23] MEDS: AMLODIPINE BESYLATE 5 MG TAB PO SCH (10:04)
[2018-10-23] MEDS: MODAFINIL 100 MG TAB PO SCH (10:04)
[2018-10-23] MEDS: ASPIRIN 81 MG ECTAB PO SCH (10:05)
[2018-10-23] MEDS: cefTRIAXone SODIUM 2,000 MG in DEXTROSE 5% 50 ML IV SCH (10:05)
[2018-10-23] MEDS: HEPARIN SOD 5,000 UNIT/0.5 ML VIAL SQ SCH ×2 (10:05→23:37)
[2018-10-23] MEDS ORDERED: AMLODIPINE BESYLATE 5 MG TAB PO ONE (13:24)
[2018-10-23] MEDS ORDERED: SODIUM BICARB 8.4% INJ 50 MEQ/50 ML SYR IV ONE (14:07)
[2018-10-23] MEDS ORDERED: SODIUM CHLORIDE 0.9% 10ML FLUSH IV ONE (14:07)
--- NOTE | 2018-10-23 15:58 | Critical Care Progress Note ---
Date of Service October 23, 2018 Assessment & Plan (1) Metabolic encephalopathy: 78-year-old male admitted on 18 October 2018 for confusion and ataxia. Transferred to ICU on s/p code blue for brief asystolic cardiopulmonary arrest. 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 CT head non-acute. Concerns for right-sided motor deficits resolved. Repeat CT head and brain MRI were nonacute. Fentanyl and Versed were stopped. Is on Provigil and Seroquel. At home is on chronic narcotics for back pain. Pulm: Acute on chronic hypercapnic respiratory failure. Severe AVELINA (declined BiPAP as outpt). intubated as part of code blue. See related pulm notes. Extubated , tolerating oximask well. CVS: Initially no acute issues. echo with normal LV, EF 65-70%. PMH CAD (s/p CABG) and afib. PMH HTN, on amolodipine, ASA, coreg. Had about two minute asystolic event early . Presently in sinus bradycardia. ID: Concern for pyelonephritis. OSH BCx and UCx positive for E coli (pending sensitivity results). Started on cefepime, switched to ceftriaxone. Afebrile. WBC elevated s/p CPR. BCx pending, UCx no growth (final), and sputum Cx prelim growing staph aureus. Endo: DM 2, on insulin at home. Here on insulin sliding scale. Renal/Lytes: underwent left kidney lithotripsy and stent placement. Mild left hydronephrosis on renal u/s. No acute intervention needed per urology. Acute on CKD III (baseline Cr ~1.3), since resolved. See nephro notes. Woodson cath in place. GI: On pantoprazole IV BID. Morbid obesity. Starting heart healthy diet. Heme: Admit Hb around 8.5, since improved. On protonix. DVT prophy: Hx afib, previously no anticoagulation due to recent history of falls. Here is on heparin 5000 units SQ q12h. Other: PMH gout. On allopurinol. Lines: right IJ TLC placed, right radial arterial line, PIV, OGT. - Will d/c central line and arterial line. Code status: Now DNR/DNI after family discussions. PT/OT: Ordered. Disposition: Stable for downgrade out of ICU. (2) Acute respiratory failure with hypoxia and hypercarbia: (3) Right sided weakness: (4) AVELINA (obstructive sleep apnea): (5) HTN (hypertension): (6) Coronary artery disease: (7) Atrial fibrillation: (8) Asystole: (9) Pyelonephritis: (10) Diabetes mellitus, type 2: (11) History of kidney stones: (12) Hydronephrosis determined by ultrasound: (13) SRAVANI (acute kidney injury): (14) CKD (chronic kidney disease), stage III: (15) Morbid obesity: (16) Anemia: (17) Gout: Supervising Physician Co-Signing Physician Notes Dr. Serna was resident physician during care of patient. I separately evaluated patient for dewey portions of the history and the exam. I was present during the critical portion of medical decision making, and I discussed the case with the resident. I generally agree with the findings and plan. Had extensive discussion with patient's son and patient's last night, emphasized the patient would not want CPAP under any circumstances and desire to be DNR/DNI. Patient had profound improvement in mental status and at this time is not experiencing any delirium. He is also agreeable to attempt to try CPAP/BiPAP for obstructive sleep apnea. Patient is on appropriate antibiotic therapy blood cultures remain negative he has E. coli bacteremia as confirmed from outpatient records from [facility]. Patient was discussed in multidisciplinary rounds, discussed the case with Dr. Belle of the hospitalist service. Patient stable for downgrade out of the ICU. Subjective Found patient resting comfortably earlier this morning. He does not have any obvious right-sided motor deficits. He does not complain of any particular complaints. Per overnight nursing, the patient believes that he was talking to his brother. Physical Exam 2 Vital Signs (Past 24 Hours): Last Vital Signs Temp 36.9 C 10/23/18 12:00 Pulse 62 10/23/18 12:00 Resp 24 10/23/18 12:00 BP 195/77 H 10/23/18 12:00 Pulse Ox 93 10/23/18 12:00 Physical Exam: General Appearance: Awake, alert & oriented, comfortable in general, NAD. CV: +S1S2 borderline but regular bradycardia, no murmur. Pulm: Diminished breath sounds throughout. On oxygen mask Abdomen: +BS, soft, non-tender, non-distended. Extremities: No pedal edema or calf tenderness. Moving all extremities naturally and easily. Neuro: No gross neuro deficits. Moves bilateral upper and lower extremities easily. Results & Data Laboratory Results 10/23/18 10/23/18 10/23/18 Range/Units 11:39 08:41 04:43 WBC (4.8-10.8) K/uL RBC (4.7-6.1) M/uL Hgb (14.0-18.0) g/dL Hct (42-52) % MCV (80-100) fL MCH (25-34) pg MCHC (32-36) g/dL RDW Std Deviation (36.4-46.3) fL RDW Coeff of Poly (11.5-14.5) % Plt Count (130-400) K/uL MPV (7.4-10.4) fL Sodium 144 (136-145) mmol/L Potassium 4.6 (3.5-5.1) mmol/L Chloride 107 (98-107) mmol/L Carbon Dioxide 37 H (21-32) mmol/L Anion Gap 0 L (3-11) BUN 49 H (7-18) mg/dl Creatinine 1.16 (0.6-1.4) mg/dl Est Cr Clr Drug Dosing 72.2 ml/min Est GFR ( Amer) 70.0 Est GFR (Non-Af Amer) 60.4 BUN/Creatinine Ratio 42.6 H (10-20) Glucose 164 H (70-99) mg/dl POC Glucose 192 H 146 H (70-99) Calcium 9.0 (8.5-10.1) mg/dl Phosphorus 3.7 (2.5-4.9) mg/dl Magnesium 2.0 (1.8-2.4) mg/dl 10/23/18 10/22/18 Range/Units 04:43 21:56 WBC 8.90 (4.8-10.8) K/uL RBC 3.38 L (4.7-6.1) M/uL Hgb 9.1 L (14.0-18.0) g/dL Hct 31.1 L (42-52) % MCV 92.0 (80-100) fL MCH 26.9 (25-34) pg MCHC 29.3 L (32-36) g/dL RDW Std Deviation 57.5 H (36.4-46.3) fL RDW Coeff of Poly 17.1 H (11.5-14.5) % Plt Count 274 (130-400) K/uL MPV 9.5 (7.4-10.4) fL Sodium (136-145) mmol/L Potassium (3.5-5.1) mmol/L Chloride (98-107) mmol/L Carbon Dioxide (21-32) mmol/L Anion Gap (3-11) BUN (7-18) mg/dl Creatinine (0.6-1.4) mg/dl Est Cr Clr Drug Dosing ml/min Est GFR ( Amer) Est GFR (Non-Af Amer) BUN/Creatinine Ratio (10-20) Glucose (70-99) mg/dl POC Glucose 149 H (70-99) Calcium (8.5-10.1) mg/dl Phosphorus (2.5-4.9) mg/dl Magnesium (1.8-2.4) mg/dl Medications Administered Current Inpatient Medications Allopurinol (Zyloprim) 300 mg PO QAM [facility] Stop: 11/18/18 08:59 Last Admin: 10/23/18 10:04 Dose: 300 mg Amlodipine Besylate (Norvasc) 10 mg PO QAM [facility] Stop: 11/23/18 08:59 Aspirin (Ecotrin Ectab) 81 mg PO QAM [facility] Stop: 11/18/18 08:59 Last Admin: 10/23/18 10:05 Dose: 81 mg Carvedilol (Coreg) 25 mg PO BID [facility] Stop: 11/17/18 20:59 Last Admin: 10/23/18 10:04 Dose: 25 mg Dextrose (Dextrose 50%) 25 - 50 ml IV UD PRN; Protocol PRN Reason: Hypoglycemia Protocol Stop: 11/17/18 17:58 Last Admin: 10/20/18 07:51 Dose: 25 ml Glucagon (Glucagen) 1 mg SQ UD PRN; Protocol PRN Reason: Hypoglycemia Protocol Stop: 11/17/18 17:58 Last Admin: 10/19/18 12:03 Dose: 1 mg Glucose (Glucose 40%) 15 - 30 gm PO UD PRN; Protocol PRN Reason: Hypoglycemia Protocol Stop: 11/17/18 17:58 Last Admin: 10/20/18 07:08 Dose: 15 gm Glucose (Dex4 Glucose) 4 - 8 tabs PO UD PRN; Protocol PRN Reason: Hypoglycemia Protocol Stop: 11/17/18 17:58 Heparin Sodium (Porcine) (Heparin Sodium (Porcine)) 7,500 units SQ Q12 SARITA Stop: 11/19/18 20:59 Last Admin: 10/23/18 10:05 Dose: 7,500 units Ceftriaxone Sodium 2,000 mg/ (Dextrose) 70 mls @ 100 mls/hr IV DAILY SARITA; Protocol Stop: 11/02/18 20:29 Last Infusion: 10/23/18 10:50 Dose: Infused Acetaminophen (Ofirmev) 1,000 mg in 100 mls @ 400 mls/hr IV Q8H PRN PRN Reason: Pain Stop: 11/20/18 09:59 Last Infusion: 10/22/18 18:57 Dose: Infused Insulin Aspart (Novolog Flexpen) 0 units SC ACHS SARITA Stop: 11/17/18 20:59 Last Admin: 10/23/18 12:00 Dose: 1 units Insulin Glargine (Lantus Solostar Pen) 10 units SC HS SARITA Stop: 11/18/18 20:59 Last Admin: 10/19/18 20:09 Dose: 10 units Lidocaine (Lidoderm 5%) 1 patch TD DAILY@2100 [facility] Stop: 11/19/18 20:59 Last Admin: 10/22/18 22:06 Dose: 1 patch Miscellaneous (Carbohydrates For Hypoglycemia) 15 - 30 gm PO UD PRN PRN Reason: Hypoglycemia Treatment Stop: 11/17/18 17:58 Miscellaneous (Remove Lidoderm Patch) 1 ea N/A DAILY@0900 [facility] Stop: 11/20/18 08:59 Last Admin: 10/23/18 10:05 Dose: 1 ea Modafinil (Provigil) 100 mg PO QAM SARITA Stop: 11/20/18 08:59 Last Admin: 10/23/18 10:04 Dose: 100 mg Nitroglycerin (Nitrostat) 0.4 mg SL UD PRN PRN Reason: Chest Pain Stop: 11/17/18 17:52 Ondansetron HCl (Zofran) 4 mg IV Q6H PRN PRN Reason: Nausea Stop: 11/17/18 17:52 Last Admin: 10/19/18 21:42 Dose: 4 mg Quetiapine Fumarate (Seroquel) 25 mg PO HS SARITA Stop: 11/20/18 20:59 Last Admin: 10/22/18 22:07 Dose: 25 mg Resident Activity Tracking Resident Involvement: Resident Care Provided Care Provided: Adult Hospital Medicine
--- NOTE | 2018-10-23 16:59 | Palliative Care Progress Note ---
Date of Service October 23, 2018 Assessment & Plan (1) Goals of care, counseling/discussion: -This 78 year old male with PMH AVELINA refusing to wear cpap, spinal surgeries, kidney stones, afib/aflutter s/p ablation, CABG, htn, and others, presented to [facility] from [facility] with acute kidney injury related to bilateral nephrolithiasis. Patient had back surgery back in July at which time it was discovered that he had a very large kidney stone. He then had lithotripsy done to break the stone up. The procedure had to be repeated on . After that time, patient became weak and ill at home. He went to his PCP where his kidney function was found to be worsening and was referred to ED. Patients renal function apparently continued to worsen, and since he had his procedure done at [place], he was transferred. Upon arrival, patient was admitted to PCU and was treated for infection related to nephrolithasis. He was doing ok until early this morning when he went for MRI to rule out other issues that could be causing his infection and renal failure, when he suddenly went into cardiac arrest and was a code blue. He only required two minutes of CPR and ROSC was achieved. He is now intubated in the ICU in critical but stable condition. Cardiac arrest was thought to be due to respiratory failure related to his AVELINA and refusing to wear CPAP. -Met with patients , son, daughter in law, and granddaughter at bedside, patient awake and alert during conversation -Patient appears to be improving-will hopefully be transferred to the floor, will continue to follow -Plan is to continue current care and hope for improvement. All family is on the same page. (2) Cardiac arrest: (3) AVELINA (obstructive sleep apnea): (4) Acute respiratory failure with hypoxia and hypercarbia: (5) Acute on chronic renal failure: Subjective Patient more responsive, awake and alert. Able to carry on conversation with family. Patient with strong cough-mobilizing secretions Review of Systems Unable to obtain detailed ROS due to respiratory status and fatigue Physical Exam 2 Vital Signs (Past 24 Hours): Last Vital Signs Temp 36.7 C 10/23/18 16:00 Pulse 58 L 10/23/18 16:00 Resp 20 10/23/18 16:00 BP 193/81 H 10/23/18 16:00 Pulse Ox 97 10/23/18 16:00 Constitutional: Appears comfortable on O2 via oxygen mask Eyes: EOMI ENMT: Normal hearing Respiratory: Coarse rhonchi bilaterally, respiratory rate in the 20s Cardiovascular: Regular rate, pitting edema Gastrointestinal (Abdomen): Obese Musculoskeletal: Weakness Skin: No pallor Neurologic: Alert and oriented Psychiatric: Appropriate behavior Time Spent Attending Total time spent 35 minutes with greater than 50% of the time spent at bedside discussing goals of care and providing support to family.
--- NOTE | 2018-10-23 17:37 | Urology Progress Note ---
Date of Service October 23, 2018 Assessment & Plan (1) Nephrolithiasis, uric acid: Critically ill - respiratory issues currently the major cliff - UCx - numerous in the system - most recent - no growth, prior with E. coli - Sputum with Staph aureus - BCx - pending - transfer out of the ICU pending - pt has opted for DNR/DNI - cont abx - Cr has normalized - lawson in place - no plans to pull his stent now - will have to let him recover further before determining next step Subjective Extubated last night breathing relatively comfortably now on NC 02 has determined he wants to be DNR DNI accompanied by numerous family members - he appears comfortable - reports that he feels exhausted and beaten up - but optimistic Physical Exam 2 Vital Signs (Past 24 Hours): Last Vital Signs Temp 36.7 C 10/23/18 16:00 Pulse 58 L 10/23/18 16:00 Resp 20 10/23/18 16:00 BP 193/81 H 10/23/18 16:00 Pulse Ox 97 10/23/18 16:00 Physical Exam: AAOx3 comfortable appearing responsive and asking appropriate questions SOB w/ rest - on NC O2 non-tachy abd soft, no CVA tendnerness - some lower extremity edema
[2018-10-23] MEDS: ACETAMINOPHEN 1,000 MG/100 ML VIAL IV PRN (21:08)
[2018-10-23] MEDS: QUETIAPINE FUMARATE 25 MG TABLET PO SCH (21:10)
[2018-10-23] MEDS: LIDOCAINE 5% 1 PATCH TD SCH (21:11)
--- NOTE | 2018-10-23 22:17 | Hospitalist Progress Note ---
Date of Service October 23, 2018 Assessment & Plan (1) Respiratory acidosis: Metabolic encephalopathy secondary to acute hypercarbic respiratory failure and/or pyelonephritis and/or acute renal failure Patient has h/o sleep apnea/narcotics use, obesity and renal failure. This all likely contributed to his worsening respiratory acidosis. Patient is currently intubated s/p code blue. Patient also has acute kidney failure on top of chronic kidney disease stage III Patient was extubated yesterday It appears the metabolic encephalopathy has resolved. Will continue to monitor. (2) Pyelonephritis: Patient reportedly has acute pyelonephritis of blood and urine cultures positive for E. coli cultures initiated on cefepime however sensitivities suggest that Rocephin will better LOYDA he was changed to Rocephin 19 October at 2 g daily, ultrasound does not show obstruction of the left ureter just some residual stone debris. Urology is visited the patient does not feel any intervention is required. Patient continues to respond to antibiotics (10/23) (3) Acute on chronic renal failure: acute on chronic kidney disease stage 3 patient continues to have improvement of his creatinine with sluggish reduction in his BUN. nephrology is following and maintaining management of his IV fluids and acid base disorder with exception of his respiratory acidosis Creatinine has normalized on 10/23. (4) Hydronephrosis with renal calculous obstruction: Reportedly the patient has mild hydronephrosis without complete obstruction seen at [facility] repeat ultrasound there is also without significant abnormalities urology does not feel intervention is acquired (5) Anemia: Patient's hemoglobin remains in the 8 g range we do not feel he is having an acute GI bleed at this time he will be maintained on Protonix 40 twice daily (6) Diabetes mellitus, type 2: Patient typically takes Lantus and Trulicity for blood pressure control there is some documentation that he may have may or may not be on glyburide also. Patient had persistent problems with hypoglycemia and Lantus will be discontinued altogether on 10/20 and will just be on sliding scale (10/23) (7) Encephalopathy: Patient has encephalopathy initially was thought to be secondary to infectious etiologies or perhaps his acidosis patient remains with significant encephalopathy his acidosis does continue which could affect this. His infection should be treated his CT scan was without gross abnormalities but with his history of atrial fibrillation we will try to pursue an MRI of his brain his agitation is prevented this. Will use Haldol as restraints in hopes we can control his behavior enough to pursue MRI scan This appears to have resolved. Will continue to monitor. (8) DVT prophylaxis: Will have chemoprophylaxis initiated. Patient is on heparin (9) Coronary artery disease: Patient has history of coronary artery disease will be maintained on his carvedilol and amlodipine aspirin was previously on his med reconciliation this would continue 81 mg daily Spent 35 minutes in management of patient. This included discussion with specialists, chart reviwe and encounter with patient. Discussion with patient on necessity of BiPAP. Subjective 78 yo male reports breathing better. He is still requiring high amounts of oxygen. He is open to using the CPAP overnight after having a lengthy discussion with patient. Patient reports that he is coughing up phlegm, he states it is clear. He denies any fever, chills, nausea, vomiting. Physical Exam 2 Vital Signs (Past 24 Hours): Last Vital Signs Temp 36.8 C 10/23/18 19:44 Pulse 55 L 10/23/18 21:45 Resp 22 10/23/18 21:45 BP 196/85 H 10/23/18 19:44 Pulse Ox 92 10/23/18 21:45 Physical Exam: The patient appeared well nourished and normally developed. Vital signs as documented. Head exam is unremarkable. normocephalic, atraumatic Neck: thyromegaly, or lymphademopathy Lungs: diminished breath sounds throughout but no focal rales or air loss or wheeze Cardiac exam: Rhythm is regular. First and second heart sounds normal. Abdominal exam: reveals normal bowel sounds, no masses, no organomegaly Extremities are mildly edematous and both pedal pulses are present Neurologic exam is A&Ox3, no focal deficits as he spontaneously moves all extremities, strength is equal bilateral Skin is warm Dry without bruises or lesions
[2018-10-24] MEDS ORDERED: HYDROmorphone INJ 0.5 MG/0.5 ML SYR ONE (03:47)
[2018-10-24] MEDS: ONDANSETRON INJ 2 MG/ML 2 ML VIAL IV PRN (03:56)
--- NOTE | 2018-10-24 07:57 | Urology Progress Note ---
Date of Service October 24, 2018 Assessment & Plan (1) Nephrolithiasis, uric acid: Stones - recovering from his critical illness - still w/ high O2 demand - allow further recovery before determining optimal timing for stent d/c, etc Subjective Subjectively reports he is improving - easier breathing overnight - tolerating diet - transferred out of ICU - reports he was able to get some rest - some sternal pain (controlled with tylenol) but no other major complaints Physical Exam 2 Vital Signs (Past 24 Hours): Last Vital Signs Temp 36.8 C 10/24/18 07:00 Pulse 57 L 10/24/18 07:00 Resp 26 H 10/24/18 07:00 BP 144/53 H 10/24/18 07:00 Pulse Ox 97 10/24/18 07:00 Physical Exam: NAD some dyspnea (O2 mask is off) AAOx3 abd soft, no CVA tenderness edema
[2018-10-24 08:48] LABS: Basophils # (auto) 0.01 K/uL (0-0.2); Basophils % (auto) 0.1 %; Eosinophils # (auto) 0.25 K/uL (0-0.5); Eosinophils % (auto) 3.5 %; Hematocrit (blood only) 29.1 % (42-52); Hemoglobin 8.5 g/dL (14.0-18.0); Immature Granulocytes # (auto) 0.02 K/uL (0.00-0.02); Immature Granulocytes % (auto) 0.3 %; Lymphocytes # (auto) 0.58 K/uL (1.2-3.4); Lymphocytes % (auto) 8.1 %; Mean Corpuscular Hgb Conc 29.2 g/dL (32-36); Mean Platelet Volume 9.8 fL (7.4-10.4); Monocytes # (auto) 0.58 K/uL (0.11-0.59); Monocytes % (auto) 8.1 %; Neutrophils # (auto) 5.75 K/uL (1.4-6.5); Neutrophils % (auto) 79.9 %; Platelet Count 254 K/uL (130-400); RDW Coefficient of Variation 17.1 % (11.5-14.5); RDW Standard Deviation 58.1 fL (36.4-46.3); Red Blood Count 3.13 M/uL (4.7-6.1); White Blood Count 7.19 K/uL (4.8-10.8)
[2018-10-24 08:53] LABS: Base Excess VBG 7.9 mEq/L; pH VBG 7.32 (7.36-7.41)
[2018-10-24] MEDS: INSULIN ASPART 100 UNITS/ML 3 ML PEN SC SCH ×4 (09:10→22:44)
[2018-10-24] MEDS: CARVEDILOL 25 MG TAB PO SCH ×2 (09:16→22:43)
[2018-10-24] MEDS: ASPIRIN 81 MG ECTAB PO SCH (09:17)
[2018-10-24] MEDS: HEPARIN SOD 5,000 UNIT/0.5 ML VIAL SQ SCH ×2 (09:18→22:43)
[2018-10-24 09:21] LABS: Anisocytosis Present
[2018-10-24] MEDS: AMLODIPINE BESYLATE 5 MG TAB PO SCH (09:22)
[2018-10-24 09:23] LABS: BUN Creatinine Ratio 34.2 (10-20); Calcium 8.8 mg/dl (8.5-10.1); Creatinine Clr Calc Pharmacy 54.1 ml/min; Est GFR (African American) 50.5; Est GFR (Non-African American) 43.6; Potassium 4.5 mmol/L (3.5-5.1)
[2018-10-24] MEDS: ALLOPURINOL 300 MG TAB PO SCH (09:23)
[2018-10-24] MEDS: cefTRIAXone SODIUM 2,000 MG in DEXTROSE 5% 50 ML IV SCH (09:32)
[2018-10-24] MEDS: MODAFINIL 100 MG TAB PO SCH (10:05)
[2018-10-24] MEDS ORDERED: VANCOMYCIN CONSULT ACTIVE PRN ×2 (10:09)
[2018-10-24] MEDS ORDERED: VANCOMYCIN HCL 2,750 MG in SODIUM CHLORIDE 0.9% 500 ML IV ONE (10:30)
[2018-10-24] MEDS: ACETAMINOPHEN 1,000 MG/100 ML VIAL IV PRN ×2 (12:40→22:48)
--- NOTE | 2018-10-24 15:17 | Pharmacy Report ---
Pharmacy Abx Initial Consult - Date of Service October 24, 2018 - Pharmacy Dosing Scope Date of Consult: 10/24 Consultation requested by: Dr. Belle Pharmacy is consulted to initiate vancomycin IV/PO dosing therapy, order appropriate labs and adjust drug dose/frequency. - Subjective The patient is a 78 year old M admitted on 10/18/18 17:39. - Objective Height: 5 ft 7 in Weight: 135.8 kg Vital Signs (Past 12hrs): Vital Signs Temp Pulse Pulse Resp BP Pulse Ox 10/24/18 15:12 36.4 C L 53 L 20 135/53 L 97 10/24/18 09:03 51 L 10/24/18 07:00 36.8 C 57 L 26 H 144/53 H 97 10/24/18 03:46 36.8 C 59 L 22 165/86 H 96 Lab Results (24hrs): Laboratory Tests (24 Hours) 10/24/18 10/24/18 08:36 08:36 WBC 7.19 Neut # (Auto) 5.75 Creatinine 1.52 H D Est Cr Clr Drug Dosing 54.1 Micro Results: 10/22/18 11:00 Gram Stain - Final Sputum,Vent Suction Sputum Culture - Final Staph aureus MRSA 10/22/18 11:00 Urine Culture - Final Urine,Indwelling Cath No growth - less than 1,000 colonies/mL. - Assessment & Plan Assessment 78 year old M admitted for pyelonephritis/E. coli bacteremia, transferred from outside hospital. Patient experienced cardiac arrest on 10/22, currently extubated and moved to general floor. Patient currently on ceftriaxone for bactermia. Sputum culture growing MRSA- adding vancomycin. Plan Vancomycin IV * Estimated PK Parameters: Vd 0.55 L/kg, Tarik 0.049 hr-1, t1/2 14 hr * Loading dose: 2750 mg (20 mg/kg) * Maintenance dose: 1500 mg (11 mg/kg) q18H * Goal trough level 15-20 * A less than traditional dose and/or extended dosing interval has/have been selected due to likelihood of drug accumulation in obese patient. Pharmacy will continue to follow and will adjust dose/frequency as necessary. Thank you.
[2018-10-24] MEDS: LIDOCAINE 5% 1 PATCH TD SCH (22:43)
[2018-10-24] MEDS: QUETIAPINE FUMARATE 25 MG TABLET PO SCH (22:45)
[2018-10-25] MEDS: VANCOMYCIN HCL 1,500 MG in SODIUM CHLORIDE 0.9% 500 ML IV SCH ×2 (05:05→23:21)
[2018-10-25] MEDS: HYDROmorphone INJ 0.5 MG/0.5 ML SYR IV PRN ×2 (05:13→15:31)
--- NOTE | 2018-10-25 07:20 | XRay Report ---
XR chest 1V portable HISTORY: Shortness of breath. COMPARISON: Chest 10/22/2018. FINDINGS: The endotracheal tube has been removed. There are poststernotomy changes. No definite pneum othorax. Questionable pleural reflection at the left lung apex is likely due to the overlapping bony structures. There are small bilateral pleural effusions which have progressed. The heart remains enla rged. Mild pulmonary vascular congestion has improved. Bibasilar densities have also progressed. This favors atelectasis given the pleural effusions. IMPRESSION: 1. Interval improvement in the pulmonary vascular congestion. 2. Small bilateral pleural effusions and bibasilar densities have progressed. Electronically signed by: Salty Martinez M.D. 10/25/2018 7:19 AM
[2018-10-25] MEDS: INSULIN ASPART 100 UNITS/ML 3 ML PEN SC SCH ×4 (08:45→20:19)
[2018-10-25] MEDS: cefTRIAXone SODIUM 2,000 MG in DEXTROSE 5% 50 ML IV SCH (08:46)
[2018-10-25] MEDS: AMLODIPINE BESYLATE 5 MG TAB PO SCH (08:46)
[2018-10-25] MEDS: ALLOPURINOL 300 MG TAB PO SCH (08:46)
[2018-10-25] MEDS: CARVEDILOL 25 MG TAB PO SCH ×2 (08:46→22:12)
[2018-10-25] MEDS: HEPARIN SOD 5,000 UNIT/0.5 ML VIAL SQ SCH ×2 (08:47→22:12)
[2018-10-25] MEDS: MODAFINIL 100 MG TAB PO SCH (08:47)
[2018-10-25] MEDS: ASPIRIN 81 MG ECTAB PO SCH (08:47)
--- NOTE | 2018-10-25 08:48 | Hospitalist Progress Note ---
Date of Service October 24, 2018 Assessment & Plan (1) Respiratory acidosis: Metabolic encephalopathy secondary to acute hypercarbic respiratory failure and/or pyelonephritis and/or acute renal failure Patient has h/o sleep apnea/narcotics use, obesity and renal failure. This all likely contributed to his worsening respiratory acidosis. Patient was intubated s/p code blue. Patient also had acute kidney failure on top of chronic kidney disease stage III Patient was extubated on 10/22 It appears the metabolic encephalopathy has resolved. Will continue to monitor. (2) Pyelonephritis: Patient reportedly has acute pyelonephritis of blood and urine cultures positive for E. coli cultures initiated on cefepime however sensitivities suggest that Rocephin will better LOYDA he was changed to Rocephin 19 October at 2 g daily, ultrasound does not show obstruction of the left ureter just some residual stone debris. Urology is visited the patient does not feel any intervention is required. Patient continues to respond to antibiotics (10/24) (3) Acute on chronic renal failure: acute on chronic kidney disease stage 3 patient continues to have improvement of his creatinine with sluggish reduction in his BUN. nephrology is following and maintaining management of his IV fluids and acid base disorder with exception of his respiratory acidosis Creatinine again has increased. Will monitor. (4) Hydronephrosis with renal calculous obstruction: Reportedly the patient has mild hydronephrosis without complete obstruction seen at [facility] repeat ultrasound there is also without significant abnormalities urology does not feel intervention is acquired (5) Anemia: Patient's hemoglobin remains in the 8 g range we do not feel he is having an acute GI bleed at this time he will be maintained on Protonix 40 twice daily Currently is 8.5 (6) Diabetes mellitus, type 2: Patient typically takes Lantus and Trulicity for blood pressure control there is some documentation that he may have may or may not be on glyburide also. Patient had persistent problems with hypoglycemia and Lantus will be discontinued altogether on 10/20 and will just be on sliding scale (10/23) (7) Encephalopathy: Patient has encephalopathy initially was thought to be secondary to infectious etiologies or perhaps his acidosis patient remains with significant encephalopathy his acidosis does continue which could affect this. His infection should be treated his CT scan was without gross abnormalities but with his history of atrial fibrillation we will try to pursue an MRI of his brain his agitation is prevented this. Will use Haldol as restraints in hopes we can control his behavior enough to pursue MRI scan This appears to have resolved. Will continue to monitor. (8) DVT prophylaxis: Will have chemoprophylaxis initiated. Patient is on heparin (9) Coronary artery disease: Patient has history of coronary artery disease will be maintained on his carvedilol and amlodipine aspirin was previously on his med reconciliation this would continue 81 mg daily Subjective 78 yo M reprts feeling overall better. Patient however is currently on Bipap. Patient was non compliant with BiPAP OVERNIGHT. HE ONLY USED IT FOR ONE HOUR OVERNIGHT. He states he will try to use it more today. Constitutional: no sweats and no malaise Eyes: no diplopia Respiratory: + cough and + dyspnea Cardiovascular: no chest pain Gastrointestinal: no abdominal pain Integumentary: no lesions Neurologic: no falls Psychiatric: no behavioral changes Endocrine: no fatigue Physical Exam 2 Vital Signs (Past 24 Hours): Last Vital Signs Temp 36.4 C 10/24/18 15:12 Pulse 53 10/24/18 15:12 Resp 20 10/24/18 15:12 BP 135/53 H 10/24/18 15:12 Pulse Ox 93 10/24/18 15:12 Physical Exam: The patient appeared well nourished and normally developed. Vital signs as documented. Head exam is unremarkable. normocephalic, atraumatic Neck: thyromegaly, or lymphademopathy Lungs: diminished breath sounds throughout but no focal rales or air loss or wheeze Cardiac exam: Rhythm is regular. First and second heart sounds normal. Abdominal exam: reveals normal bowel sounds, no masses, no organomegaly Extremities are mildly edematous and both pedal pulses are present Neurologic exam is A&Ox3, no focal deficits as he spontaneously moves all extremities, strength is equal bilateral Skin is warm Dry without bruises or lesions
[2018-10-25 09:56] LABS: Hematocrit (blood only) 29.4 % (42-52); Hemoglobin 8.4 g/dL (14.0-18.0); Mean Corpuscular Hgb Conc 28.6 g/dL (32-36); Mean Corpuscular Volume 93.6 fL (80-100); Mean Platelet Volume 9.8 fL (7.4-10.4); Platelet Count 239 K/uL (130-400); RDW Coefficient of Variation 16.8 % (11.5-14.5); RDW Standard Deviation 57.9 fL (36.4-46.3); Red Blood Count 3.14 M/uL (4.7-6.1); White Blood Count 5.73 K/uL (4.8-10.8)
[2018-10-25 10:20] LABS: BUN Creatinine Ratio 35.2 (10-20); Calcium 8.8 mg/dl (8.5-10.1); Creatinine Clr Calc Pharmacy 55.4 ml/min; Est GFR (African American) 51.7; Est GFR (Non-African American) 44.6; Phosphorus 3.8 mg/dl (2.5-4.9); Potassium 4.5 mmol/L (3.5-5.1)
[2018-10-25 10:23] LABS: Albumin Globulin Ratio 0.5 (0.9-2); Bilirubin,Total 0.2 mg/dl (0.2-1)
--- NOTE | 2018-10-25 13:07 | Palliative Care Progress Note ---
Date of Service October 25, 2018 Assessment & Plan (1) Goals of care, counseling/discussion: -This 78 year old male with PMH AVELINA refusing to wear cpap, spinal surgeries, kidney stones, afib/aflutter s/p ablation, CABG, htn, and others, presented to [facility] from [facility] with acute kidney injury related to bilateral nephrolithiasis. Patient had back surgery back in July at which time it was discovered that he had a very large kidney stone. He then had lithotripsy done to break the stone up. The procedure had to be repeated on . After that time, patient became weak and ill at home. He went to his PCP where his kidney function was found to be worsening and was referred to ED. Patients renal function apparently continued to worsen, and since he had his procedure done at [place], he was transferred. Upon arrival, patient was admitted to PCU and was treated for infection related to nephrolithasis. He was doing ok until early the morning of admission when he went for MRI to rule out other issues that could be causing his infection and renal failure, when he suddenly went into cardiac arrest and was a code blue. He only required two minutes of CPR and ROSC was achieved. He was intubated in the ICU. Cardiac arrest was thought to be due to respiratory failure related to his AVELINA and refusing to wear CPAP. Patient was successfully extubated on 10/22-continues to require O2 and is tolerating short periods on BiPAP/CPAP -Patient appears to be improving-transferred to the floor on 10/23, will continue to follow and assist with medical decision making as needed -Plan is to continue current care and hope for continued improvement. -Continue to encourage patient's compliance with either BiPAP or CPAP (2) Cardiac arrest: (3) AVELINA (obstructive sleep apnea): (4) Acute respiratory failure with hypoxia and hypercarbia: (5) Acute on chronic renal failure: Subjective Pt asleep, daughter in law at bedside - she reports pt had a difficult night - he was on CPAP, but she stated he did better on BiPAP Pt was awake and alert earlier today per family - ate lunch, etc. Pt appears comfortable but is using abdominal muscles for respiration. Currently on O2 via FM Review of Systems Unobtainable due to reduced consciousness Physical Exam 2 Vital Signs (Past 24 Hours): Last Vital Signs Temp 36.7 C 10/25/18 12:19 Pulse 56 L 10/25/18 12:19 Resp 16 10/25/18 12:19 BP 147/61 H 10/25/18 12:19 Pulse Ox 93 10/25/18 12:19 Physical Exam: PE: appears comfortable , on O2 via FM HEENT: opened eyes briefly during conversation with family Resp: Appears comfortable, using abdominal muscles CV: Regular rate, edema improving Abdomen: Soft, obese Extremities: Edema improving Neuro: Deeply asleep Time Spent Attending Total time spent 35 minutes with greater than 50% of the time spent at bedside reviewing patient's progress with family at bedside
[2018-10-25] MEDS: ACETAMINOPHEN 1,000 MG/100 ML VIAL IV PRN (14:09)
[2018-10-25 16:38] LABS: Base Excess VBG 7.7 mEq/L; pH VBG 7.28 (7.36-7.41)
--- NOTE | 2018-10-25 19:25 | XRay Report ---
XR chest 1V portable CLINICAL HISTORY: 78 years-old Male presenting with wheezing. TECHNIQUE: Portable upright AP view of the chest was obtained. COMPARISON: 10/24/2018. FINDINGS: Median sternotomy wires and bypass graft rings noted. Cardiac silhouette moderately enlarged. Low patience g volumes with significant bibasilar opacities, possibly layering pleural effusions in part. Bibasila r opacities have increased from prior allowing for differences in positioning. No large pneumothorax. Degenerative changes of the thoracic spine. Partially visualized lumbar fusion hardware. Mild gaseou s distention of bowel. IMPRESSION: 1. Cardiomegaly with increasing layering pleural effusions and bibasilar atelectasis. Electronically signed by: Simeon Oneal M.D. 10/25/2018 7:23 PM
[2018-10-25] MEDS ORDERED: FUROSEMIDE 20 MG in SYRINGE 0 ML IV ONE (20:15)
[2018-10-25] MEDS: QUETIAPINE FUMARATE 25 MG TABLET PO SCH (22:12)
[2018-10-25] MEDS: LIDOCAINE 5% 1 PATCH TD SCH (22:12)
--- NOTE | 2018-10-25 22:35 | Hospitalist Progress Note ---
Date of Service October 25, 2018 Assessment & Plan (1) Respiratory acidosis: Metabolic encephalopathy secondary to acute hypercarbic respiratory failure and/or pyelonephritis and/or acute renal failure Patient has h/o sleep apnea/narcotics use, obesity and renal failure. 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 Patient was intubated s/p code blue. Patient also had acute kidney failure on top of chronic kidney disease stage III Patient was extubated on 10/22 It appears the metabolic encephalopathy has resolved. Will continue to monitor. (2) Pyelonephritis: Patient reportedly has acute pyelonephritis of blood and urine cultures positive for E. coli cultures initiated on cefepime however sensitivities suggest that Rocephin will better LOYDA he was changed to Rocephin 19 October at 2 g daily, ultrasound does not show obstruction of the left ureter just some residual stone debris. Urology is visited the patient does not feel any intervention is required. Patient continues to respond to antibiotics (10/25) (3) Acute on chronic renal failure: acute on chronic kidney disease stage 3 patient continues to have improvement of his creatinine with sluggish reduction in his BUN. nephrology is following and maintaining management of his IV fluids and acid base disorder with exception of his respiratory acidosis Creatinine is mildly improved. will monitor (4) Hydronephrosis with renal calculous obstruction: Reportedly the patient has mild hydronephrosis without complete obstruction seen at [facility] repeat ultrasound there is also without significant abnormalities urology does not feel intervention is acquired (5) Anemia: Patient's hemoglobin remains in the 8 g range we do not feel he is having an acute GI bleed at this time he will be maintained on Protonix 40 twice daily Currently is 8.4 (6) Diabetes mellitus, type 2: Patient typically takes Lantus and Trulicity for blood pressure control there is some documentation that he may have may or may not be on glyburide also. Patient had persistent problems with hypoglycemia and Lantus will be discontinued altogether on 10/20 and will just be on sliding scale (10/23) (7) Encephalopathy: Patient has encephalopathy initially was thought to be secondary to infectious etiologies or perhaps his acidosis patient remains with significant encephalopathy his acidosis does continue which could affect this. His infection should be treated his CT scan was without gross abnormalities but with his history of atrial fibrillation we will try to pursue an MRI of his brain his agitation is prevented this. Will use Haldol as restraints in hopes we can control his behavior enough to pursue MRI scan This appears to have resolved. Will continue to monitor. (8) DVT prophylaxis: Will have chemoprophylaxis initiated. Patient is on heparin (9) Coronary artery disease: Patient has history of coronary artery disease will be maintained on his carvedilol and amlodipine aspirin was previously on his med reconciliation this would continue 81 mg daily Spent 35 minutes in management of patient Subjective 78 yo M reports feeling overall better. Family is there, however he continues to intermittenlty refuse bipap. Patient however states he would try it again. Respiratory: + cough and + dyspnea Physical Exam 2 Vital Signs (Past 24 Hours): Last Vital Signs Temp 36.4 C L 10/25/18 19:36 Pulse 53 L 10/25/18 20:15 Resp 18 10/25/18 20:15 BP 148/48 H 10/25/18 19:36 Pulse Ox 89 L 10/25/18 20:15 Physical Exam: The patient appeared well nourished and normally developed. Vital signs as documented. Head exam is unremarkable. normocephalic, atraumatic Neck: thyromegaly, or lymphademopathy Lungs: diminished breath sounds throughout but no focal rales or air loss or wheeze Cardiac exam: Rhythm is regular. First and second heart sounds normal. Abdominal exam: reveals normal bowel sounds, no masses, no organomegaly Extremities are mildly edematous and both pedal pulses are present Neurologic exam is A&Ox3, no focal deficits as he spontaneously moves all extremities, strength is equal bilateral Skin is warm Dry without bruises or lesions
[2018-10-26] MEDS: CARVEDILOL 25 MG TAB PO SCH ×3 (00:30→21:50)
[2018-10-26 06:39] LABS: Hematocrit (blood only) 30.3 % (42-52); Hemoglobin 8.8 g/dL (14.0-18.0); Mean Corpuscular Volume 92.7 fL (80-100); Mean Platelet Volume 10.3 fL (7.4-10.4); Platelet Count 262 K/uL (130-400); RDW Coefficient of Variation 16.6 % (11.5-14.5); RDW Standard Deviation 55.8 fL (36.4-46.3); Red Blood Count 3.27 M/uL (4.7-6.1); White Blood Count 5.16 K/uL (4.8-10.8)
[2018-10-26 06:45] LABS: Base Excess VBG 8.8 mEq/L; Oxygen Saturation VBG 78.7 %; pH VBG 7.35 (7.36-7.41)
[2018-10-26 07:11] LABS: BUN Creatinine Ratio 42.1 (10-20); Calcium 9.1 mg/dl (8.5-10.1); Creatinine Clr Calc Pharmacy 69.2 ml/min; Est GFR (African American) 67.2; Potassium 4.6 mmol/L (3.5-5.1)
[2018-10-26 07:15] LABS: Albumin Globulin Ratio 0.5 (0.9-2); Bilirubin,Total 0.3 mg/dl (0.2-1); Globulin 4.2 gm/dl (2.5-4.0); Phosphorus 3.2 mg/dl (2.5-4.9); Total Protein 6.2 gm/dl (6.4-8.2)
[2018-10-26] MEDS: HEPARIN SOD 5,000 UNIT/0.5 ML VIAL SQ SCH ×2 (07:34→21:48)
[2018-10-26] MEDS: ALLOPURINOL 300 MG TAB PO SCH (07:35)
[2018-10-26] MEDS: AMLODIPINE BESYLATE 5 MG TAB PO SCH (07:35)
[2018-10-26] MEDS: INSULIN ASPART 100 UNITS/ML 3 ML PEN SC SCH ×4 (07:36→21:53)
[2018-10-26] MEDS: ASPIRIN 81 MG ECTAB PO SCH (07:36)
[2018-10-26] MEDS: cefTRIAXone SODIUM 2,000 MG in DEXTROSE 5% 50 ML IV SCH (07:38)
[2018-10-26] MEDS: FUROSEMIDE 40 MG in SYRINGE 0 ML IV SCH (10:32)
[2018-10-26] MEDS: MODAFINIL 100 MG TAB PO SCH (12:05)
--- NOTE | 2018-10-26 12:51 | Urology Progress Note ---
Date of Service October 26, 2018 Assessment & Plan (1) Nephrolithiasis, uric acid: Pt continues to recover from critical illness. Appears to be mentating well, in good spirits. Agree with hospitalist abx regimen plan, recommend 14d course total of therapy. Followup plan discussed with Dr. Tran. We will to tentatively folllow-up in 2 weeks with repeat non-contrast CT scan. Continue ureteral stent and lawson catheter until that time to allow maximal drainage. Outpatient trial of void will be arranged by our office. Specifics will be dictated based upon patient's overall clinical progression. Thank you for allowing us to participate in the care of Ms. Yepez. Please reconsult us with any additional concerns, questions or changes in patient status. Subjective Pt reports feeling tired today, but able to converse. He is in good spirits. No family members at bedside at time of evaluation. Offers no new concerns or questions from a perspective. Light appetite, on regular diet. Denies n/v. Denies chest pain or shortness of breath. Lawson catheter remains intact, denies any bother or spasms. Review of Systems All systems reviewed & are unremarkable except as noted in HPI & below Physical Exam 2 Vital Signs (Past 24 Hours): Last Vital Signs Temp 36.4 C L 10/26/18 11:22 Pulse 58 L 10/26/18 11:22 Resp 12 10/26/18 11:22 BP 153/80 H 10/26/18 11:22 Pulse Ox 97 10/26/18 11:22 Physical Exam: A&O x3 Resp: breathing heavy at times, but able to converse without shortness of breath GI: abd soft, nontender : Catheter draining clear yellow. no sediment or hematuria.
[2018-10-26] MEDS ORDERED: VANCOMYCIN TROUGH ONE (16:30)
[2018-10-26] MEDS: VANCOMYCIN HCL 1,500 MG in SODIUM CHLORIDE 0.9% 500 ML IV SCH (17:14)
[2018-10-26] MEDS: QUETIAPINE FUMARATE 25 MG TABLET PO SCH (21:49)
[2018-10-26] MEDS: LIDOCAINE 5% 1 PATCH TD SCH (21:52)
[2018-10-27 00:37] LABS: HCO3 ABG 38 mmol/L (19-24); Oxygen Saturation ABG 95.2 % (90-95); PCO2 ABG 56 mmHg (35-46); PO2 ABG 87 mm/Hg (80-95); pH ABG 7.45 (7.35-7.45)
[2018-10-27 00:44] LABS: Allen Test Pos (Pos)
[2018-10-27 06:50] LABS: Creatinine Clr Calc Pharmacy 79.8 ml/min; Est GFR (African American) 82.8; Est GFR (Non-African American) 71.4
[2018-10-27] MEDS ORDERED: VANCOMYCIN HCL 1,500 MG in SODIUM CHLORIDE 0.9% 500 ML IV SCH (07:00)
[2018-10-27] MEDS: ASPIRIN 81 MG ECTAB PO SCH (07:35)
[2018-10-27] MEDS: ALLOPURINOL 300 MG TAB PO SCH (07:36)
[2018-10-27] MEDS: CARVEDILOL 25 MG TAB PO SCH ×2 (07:36→20:42)
[2018-10-27] MEDS: AMLODIPINE BESYLATE 5 MG TAB PO SCH (07:36)
--- NOTE | 2018-10-27 08:02 | Pharmacy Report ---
Pharmacy Abx Dose Short Note - Date of Service October 27, 2018 - Assessment & Plan Assessment 78 year old M receiving vancomycin for treatment of MRSA sputum culture. Level was low last evening and dose was increased accordingly. Serum creatinine did improve again today, however, given concern for drug accumulation with high BMI , will order a repeat level tomorrow morning to assess for accumulation. Day # 4 of antimicrobial therapy. Plan Vancomycin * Trough level last evening of 12.4 mcg/mL is subtherapeutic. * Dose was changed to 1500 mg IV every 14 hours * Goal trough level : 15 to 20 mcg/mL * Trough or random level ordered for: 10/28/18@1030 Pharmacy will continue to follow and will adjust dose/frequency as necessary. Thank you.
[2018-10-27] MEDS: cefTRIAXone SODIUM 2,000 MG in DEXTROSE 5% 50 ML IV SCH (09:00)
[2018-10-27] MEDS: INSULIN ASPART 100 UNITS/ML 3 ML PEN SC SCH ×4 (09:19→20:41)
[2018-10-27] MEDS: HEPARIN SOD 5,000 UNIT/0.5 ML VIAL SQ SCH ×2 (09:20→20:40)
[2018-10-27] MEDS: FUROSEMIDE 40 MG in SYRINGE 0 ML IV SCH (11:51)
[2018-10-27] MEDS: MODAFINIL 100 MG TAB PO SCH (13:00)
--- NOTE | 2018-10-27 14:21 | Hospitalist Progress Note ---
Date of Service October 26, 2018 Assessment & Plan (1) Respiratory acidosis: Metabolic encephalopathy secondary to acute hypercarbic respiratory failure and/or pyelonephritis and/or acute renal failure Patient has h/o sleep apnea/narcotics use, obesity and renal failure. 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 Patient was intubated s/p code blue. Patient also had acute kidney failure on top of chronic kidney disease stage III Patient was extubated on 10/22 It appears the metabolic encephalopathy has resolved. Will continue to monitor. VBG shows improvement of his C02. Patient also appears to be responding to diuresis which was started overnight. Will continue to monitor, (2) Pyelonephritis: Patient reportedly has acute pyelonephritis of blood and urine cultures positive for E. coli cultures initiated on cefepime however sensitivities suggest that Rocephin will better LOYDA he was changed to Rocephin 19 October at 2 g daily, ultrasound does not show obstruction of the left ureter just some residual stone debris. Urology is visited the patient does not feel any intervention is required. Patient continues to respond to antibiotics (10/26) (3) Acute on chronic renal failure: acute on chronic kidney disease stage 3 patient continues to have improvement of his creatinine with sluggish reduction in his BUN. nephrology is following and maintaining management of his IV fluids and acid base disorder with exception of his respiratory acidosis Creatinine is mildly improved. will monitor (4) Hydronephrosis with renal calculous obstruction: Reportedly the patient has mild hydronephrosis without complete obstruction seen at [facility] repeat ultrasound there is also without significant abnormalities urology does not feel intervention is acquired (5) Anemia: Patient's hemoglobin remains in the 8 g range we do not feel he is having an acute GI bleed at this time he will be maintained on Protonix 40 twice daily Currently is 8.8 (6) Diabetes mellitus, type 2: Patient typically takes Lantus and Trulicity for blood pressure control there is some documentation that he may have may or may not be on glyburide also. Patient had persistent problems with hypoglycemia and Lantus will be discontinued altogether on 10/20 and will just be on sliding scale (10/23) (7) Encephalopathy: Patient has encephalopathy initially was thought to be secondary to infectious etiologies or perhaps his acidosis patient remains with significant encephalopathy his acidosis does continue which could affect this. His infection should be treated his CT scan was without gross abnormalities but with his history of atrial fibrillation we will try to pursue an MRI of his brain his agitation is prevented this. Will use Haldol as restraints in hopes we can control his behavior enough to pursue MRI scan This appears to have resolved. Will continue to monitor. (8) DVT prophylaxis: Will have chemoprophylaxis initiated. Patient is on heparin (9) Coronary artery disease: Patient has history of coronary artery disease will be maintained on his carvedilol and amlodipine aspirin was previously on his med reconciliation this would continue 81 mg daily Spent 25 minutes in management of patient Subjective 78 yo M reports feeling overall better. Patient reports breathing better today. He reports an improvement over yesterday. He reports less SOB. Respiratory: + cough and + dyspnea Physical Exam 2 Vital Signs (Past 24 Hours): Last Vital Signs Temp 36.7 C 10/26/18 16:00 Pulse 60 10/26/18 16:00 Resp 18 10/26/18 16:00 BP 171/77 10/26/18 16:00 Pulse Ox 97 10/26/18 16:00 Physical Exam: The patient appeared well nourished and normally developed. Vital signs as documented. Head exam is unremarkable. normocephalic, atraumatic Neck: thyromegaly, or lymphademopathy Lungs: diminished breath sounds throughout but no focal rales or air loss or wheeze Cardiac exam: Rhythm is regular. First and second heart sounds normal. Abdominal exam: reveals normal bowel sounds, no masses, no organomegaly Extremities are mildly edematous and both pedal pulses are present Neurologic exam is A&Ox3, no focal deficits as he spontaneously moves all extremities, strength is equal bilateral Skin is warm Dry without bruises or lesions
[2018-10-27] MEDS: QUETIAPINE FUMARATE 25 MG TABLET PO SCH (20:42)
[2018-10-27] MEDS: LIDOCAINE 5% 1 PATCH TD SCH (20:42)
[2018-10-27] MEDS: VANCOMYCIN HCL 1,500 MG in SODIUM CHLORIDE 0.9% 500 ML IV SCH (20:45)
[2018-10-28 06:33] LABS: Creatinine Clr Calc Pharmacy 88.4 ml/min; Est GFR (African American) 93.9
[2018-10-28] MEDS: INSULIN ASPART 100 UNITS/ML 3 ML PEN SC SCH ×4 (08:34→20:33)
[2018-10-28] MEDS: cefTRIAXone SODIUM 2,000 MG in DEXTROSE 5% 50 ML IV SCH (08:55)
[2018-10-28] MEDS: FUROSEMIDE 40 MG in SYRINGE 0 ML IV SCH (08:56)
[2018-10-28] MEDS: HEPARIN SOD 5,000 UNIT/0.5 ML VIAL SQ SCH ×2 (08:56→20:32)
[2018-10-28 09:28] LABS: Basophils # (auto) 0.02 K/uL (0-0.2); Basophils % (auto) 0.4 %; Eosinophils # (auto) 0.17 K/uL (0-0.5); Eosinophils % (auto) 3.2 %; Hematocrit (blood only) 32.1 % (42-52); Hemoglobin 9.4 g/dL (14.0-18.0); Immature Granulocytes # (auto) 0.01 K/uL (0.00-0.02); Immature Granulocytes % (auto) 0.2 %; Mean Corpuscular Hgb Conc 29.3 g/dL (32-36); Mean Corpuscular Volume 90.9 fL (80-100); Monocytes # (auto) 0.61 K/uL (0.11-0.59); Monocytes % (auto) 11.3 %; Neutrophils # (auto) 3.88 K/uL (1.4-6.5); Neutrophils % (auto) 71.9 %; Platelet Count 262 K/uL (130-400); RDW Standard Deviation 56.2 fL (36.4-46.3); Red Blood Count 3.53 M/uL (4.7-6.1); White Blood Count 5.39 K/uL (4.8-10.8)
[2018-10-28 09:31] LABS: Base Excess VBG 13.2 mEq/L; Oxygen Saturation VBG 74.7 %; pH VBG 7.41 (7.36-7.41)
[2018-10-28 10:04] LABS: BUN Creatinine Ratio 31.5 (10-20); Calcium 9.2 mg/dl (8.5-10.1); Creatinine Clr Calc Pharmacy 84.7 ml/min; Est GFR (African American) 89.1; Est GFR (Non-African American) 76.9
[2018-10-28] MEDS ORDERED: VANCOMYCIN TROUGH ONE (10:30)
--- NOTE | 2018-10-28 11:45 | Hospitalist Progress Note ---
Date of Service October 27, 2018 Assessment & Plan (1) Respiratory acidosis: Metabolic encephalopathy secondary to acute hypercarbic respiratory failure and/or pyelonephritis and/or acute renal failure Patient has h/o sleep apnea/narcotics use, obesity and renal failure. 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 Patient was intubated s/p code blue. Patient also had acute kidney failure on top of chronic kidney disease stage III Patient was extubated on 10/22 It appears the metabolic encephalopathy has resolved. Will continue to monitor. VBG shows improvement of his C02. Patient also appears to be responding to diuresis. Will continue to monitor, patient is over 3 liters negative since admission. (2) Pyelonephritis: Patient reportedly has acute pyelonephritis of blood and urine cultures positive for E. coli cultures initiated on cefepime however sensitivities suggest that Rocephin will better LOYDA he was changed to Rocephin 19 October at 2 g daily, ultrasound does not show obstruction of the left ureter just some residual stone debris. Urology is visited the patient does not feel any intervention is required. Patient continues to respond to antibiotics (2/2) (3) Acute on chronic renal failure: acute on chronic kidney disease stage 3 patient continues to have improvement of his creatinine with sluggish reduction in his BUN. nephrology is following and maintaining management of his IV fluids and acid base disorder with exception of his respiratory acidosis Creatinine is mildly improved. will monitor (4) Hydronephrosis with renal calculous obstruction: Reportedly the patient has mild hydronephrosis without complete obstruction seen at [facility] repeat ultrasound there is also without significant abnormalities urology does not feel intervention is acquired (5) Anemia: Patient's hemoglobin remains in the 8 g range we do not feel he is having an acute GI bleed at this time he will be maintained on Protonix 40 twice daily Currently is 8.8 (6) Diabetes mellitus, type 2: Patient typically takes Lantus and Trulicity for blood pressure control there is some documentation that he may have may or may not be on glyburide also. Patient had persistent problems with hypoglycemia and Lantus will be discontinued altogether on 10/20 and will just be on sliding scale (10/23) (7) Encephalopathy: Patient has encephalopathy initially was thought to be secondary to infectious etiologies or perhaps his acidosis patient remains with significant encephalopathy his acidosis does continue which could affect this. His infection should be treated his CT scan was without gross abnormalities but with his history of atrial fibrillation we will try to pursue an MRI of his brain his agitation is prevented this. Will use Haldol as restraints in hopes we can control his behavior enough to pursue MRI scan This appears to have resolved. Will continue to monitor. Patient did have an episode of sundowning overnight. (2/2) Do not consider this to be metabolic encepahlopathy no longer as patient is no longer acidotic. (8) DVT prophylaxis: Will have chemoprophylaxis initiated. Patient is on heparin (9) Coronary artery disease: Patient has history of coronary artery disease will be maintained on his carvedilol and amlodipine aspirin was previously on his med reconciliation this would continue 81 mg daily Spent 25 minutes in management of patient Subjective 78 yo M continues to feel overall better. Family is at bedside and patient looks improved to them as well. Overnight though patient did have an episode of confusion. But this was breif. Patient reports not having shortness of breath today. Respiratory: + cough and + dyspnea Physical Exam 2 Vital Signs (Past 24 Hours): Last Vital Signs Temp 36.7 C 10/27/18 15:34 Pulse 98 10/27/18 15:34 Resp 18 10/27/18 15:34 BP 179/71 10/27/18 15:34 Pulse Ox 99 10/27/18 15:34 Physical Exam: The patient appeared well nourished and normally developed. Vital signs as documented. Head exam is unremarkable. normocephalic, atraumatic Neck: thyromegaly, or lymphademopathy Lungs: diminished breath sounds throughout but no focal rales or air loss or wheeze Cardiac exam: Rhythm is regular. First and second heart sounds normal. Abdominal exam: reveals normal bowel sounds, no masses, no organomegaly Extremities are mildly edematous and both pedal pulses are present Neurologic exam is A&Ox3, no focal deficits as he spontaneously moves all extremities, strength is equal bilateral Skin is warm Dry without bruises or lesions
[2018-10-28] MEDS: ALLOPURINOL 300 MG TAB PO SCH (11:59)
[2018-10-28] MEDS: CARVEDILOL 25 MG TAB PO SCH ×2 (11:59→20:31)
[2018-10-28] MEDS: ASPIRIN 81 MG ECTAB PO SCH (11:59)
[2018-10-28] MEDS: AMLODIPINE BESYLATE 5 MG TAB PO SCH (11:59)
[2018-10-28] MEDS: VANCOMYCIN HCL 1,500 MG in SODIUM CHLORIDE 0.9% 500 ML IV SCH (12:00)
[2018-10-28] MEDS: MODAFINIL 100 MG TAB PO SCH (12:00)
--- NOTE | 2018-10-28 12:01 | Pharmacy Report ---
Pharmacy Abx Dose Short Note - Date of Service October 28, 2018 - Assessment & Plan Assessment 78 year old M receiving vancomycin for treatment of MRSA in sputum. Patient also on rocephin for e. coli bacteremia/pyelonephritis. Discussed duration of therapy/ transitioning to an oral agent based on the current clinical status of pneumonia, but provider would like to continue IV vancomycin for now. Trough level today was therapeutic, but will order a repeat level tomorrow afternoon to continue to monitor for accumulation given high BMI. Day # 5 of antimicrobial therapy. Plan Vancomycin * Trough level of 17 mcg/mL is therapeutic. * Continue dose of 1500 mg IV every 14 hours * Goal trough level for pneumonia : 15 to 20 mcg/mL * Trough or random level ordered for: 10/29/18 @ 1430 Pharmacy will continue to follow and will adjust dose/frequency as necessary. Thank you.
--- NOTE | 2018-10-28 12:53 | XRay Report ---
XR chest 1V portable CLINICAL HISTORY: mrsa sputum culture/ hypoxia COMPARISON STUDY: 10/25/2018 FINDINGS: Stable cardiomegaly. Increased density left as well as right lung base. Mid and upper lungs are clear. IMPRESSION: 1. Stable cardiomegaly. 2. Stable bilateral pleural effusions with mild basilar atelectatic change. The above report was generated using voice recognition software. It may contain grammatical, syntax or spelling errors. Electronically signed by: Jimmy Saab M.D. 10/28/2018 12:52 PM
[2018-10-28] MEDS: QUETIAPINE FUMARATE 25 MG TABLET PO SCH (20:31)
[2018-10-28] MEDS: LISINOPRIL 10 MG TAB PO SCH (20:31)
[2018-10-28] MEDS: LIDOCAINE 5% 1 PATCH TD SCH (20:32)
--- NOTE | 2018-10-28 23:37 | Hospitalist Progress Note ---
Date of Service October 28, 2018 Assessment & Plan (1) Respiratory acidosis: Metabolic encephalopathy secondary to acute hypercarbic respiratory failure and/or pyelonephritis and/or acute renal failure Patient has h/o sleep apnea/narcotics use, obesity and renal failure. 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 Patient was intubated s/p code blue. Patient also had acute kidney failure on top of chronic kidney disease stage III Patient was extubated on 10/22 It appears the metabolic encephalopathy has resolved. Will continue to monitor. VBG shows improvement of his C02. Patient also appears to be responding to diuresis. Will continue to monitor, patient is over 4.5 liters negative since admission. will add lisnopril due to blood pressure (2/3) This may increase creatinine. Advice to continue to durese him until he reaches his normal weight. (2) Pyelonephritis: Patient reportedly has acute pyelonephritis of blood and urine cultures positive for E. coli cultures initiated on cefepime however sensitivities suggest that Rocephin will better LOYDA he was changed to Rocephin 19 October at 2 g daily, ultrasound does not show obstruction of the left ureter just some residual stone debris. Urology is visited the patient does not feel any intervention is required. Patient continues to respond to antibiotics (2/3) (3) Acute on chronic renal failure: acute on chronic kidney disease stage 3 patient continues to have improvement of his creatinine with sluggish reduction in his BUN. nephrology is following and maintaining management of his IV fluids and acid base disorder with exception of his respiratory acidosis Creatinine is mildly improved. will monitor (4) Hydronephrosis with renal calculous obstruction: Reportedly the patient has mild hydronephrosis without complete obstruction seen at [facility] repeat ultrasound there is also without significant abnormalities urology does not feel intervention is acquired (5) Anemia: Patient's hemoglobin remains in the 8 g range we do not feel he is having an acute GI bleed at this time he will be maintained on Protonix 40 twice daily Currently is 9.4 (6) Diabetes mellitus, type 2: Patient typically takes Lantus and Trulicity for blood pressure control there is some documentation that he may have may or may not be on glyburide also. Patient had persistent problems with hypoglycemia and Lantus will be discontinued altogether on 10/20 and will just be on sliding scale (10/23) (7) Encephalopathy: Patient has encephalopathy initially was thought to be secondary to infectious etiologies or perhaps his acidosis patient remains with significant encephalopathy his acidosis does continue which could affect this. His infection should be treated his CT scan was without gross abnormalities but with his history of atrial fibrillation we will try to pursue an MRI of his brain his agitation is prevented this. Will use Haldol as restraints in hopes we can control his behavior enough to pursue MRI scan This appears to have resolved. Will continue to monitor. Patient did have an episode of sundowning overnight and confusion in the AM. (2/ 3) Do not consider this to be metabolic encepahlopathy no longer as patient is no longer acidotic. (8) DVT prophylaxis: Will have chemoprophylaxis initiated. Patient is on heparin (9) Coronary artery disease: Patient has history of coronary artery disease will be maintained on his carvedilol and amlodipine aspirin was previously on his med reconciliation this would continue 81 mg daily Spent 25 minutes in management of patient Subjective 78 yo M continues to feel overall better. Family is at bedside and patient looks improved to them as well. In the AM patient had confusion, but improved after 2 hours on bipap. Patient reports not having shortness of breath today. Respiratory: + cough and + dyspnea Physical Exam 2 Vital Signs (Past 24 Hours): Last Vital Signs Temp 36.9 C 10/28/18 19:21 Pulse 58 L 10/28/18 22:17 Resp 19 10/28/18 22:17 BP 164/63 H 10/28/18 19:21 Pulse Ox 95 10/28/18 22:17 Physical Exam: The patient appeared well nourished and normally developed. Vital signs as documented. Head exam is unremarkable. normocephalic, atraumatic Neck: thyromegaly, or lymphademopathy Lungs: diminished breath sounds throughout but no focal rales or air loss or wheeze Cardiac exam: Rhythm is regular. First and second heart sounds normal. Abdominal exam: reveals normal bowel sounds, no masses, no organomegaly Extremities are mildly edematous and both pedal pulses are present Neurologic exam is A&Ox3, no focal deficits as he spontaneously moves all extremities, strength is equal bilateral Skin is warm Dry without bruises or lesions
[2018-10-29] MEDS: VANCOMYCIN HCL 1,500 MG in SODIUM CHLORIDE 0.9% 500 ML IV SCH ×2 (01:55→15:29)
[2018-10-29 06:47] LABS: Creatinine Clr Calc Pharmacy 78.9 ml/min; Est GFR (African American) 81.8; Est GFR (Non-African American) 70.6
--- NOTE | 2018-10-29 07:34 | Hospitalist Progress Note ---
Date of Service October 23, 2018 Assessment & Plan (1) Respiratory acidosis: Metabolic encephalopathy secondary to acute hypercarbic respiratory failure and/or pyelonephritis and/or acute renal failure Patient has h/o sleep apnea/narcotics use, obesity and renal failure. 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 Patient was intubated s/p code blue. Patient also had acute kidney failure on top of chronic kidney disease stage III Patient was extubated on 10/22 It appears the metabolic encephalopathy has resolved. Will continue to monitor. Patient also appears to be responding to diuresis. Will continue to monitor, patient is over 4.5 liters negative since admission. will add lisnopril due to blood pressure (2/3) This may increase creatinine. Advice to continue to durese him until he reaches his normal weight. (2) Pyelonephritis: Patient reportedly has acute pyelonephritis of blood and urine cultures positive for E. coli cultures initiated on cefepime however sensitivities suggest that Rocephin will better LOYDA he was changed to Rocephin 19 October at 2 g daily, ultrasound does not show obstruction of the left ureter just some residual stone debris. Urology is visited the patient does not feel any intervention is required. Patient continues to respond to antibiotics (2/3) (3) Acute on chronic renal failure: acute on chronic kidney disease stage 3 patient continues to have improvement of his creatinine with sluggish reduction in his BUN. nephrology is following and maintaining management of his IV fluids and acid base disorder with exception of his respiratory acidosis Creatinine is mildly improved. will monitor (4) Hydronephrosis with renal calculous obstruction: Reportedly the patient has mild hydronephrosis without complete obstruction seen at [facility] repeat ultrasound there is also without significant abnormalities urology does not feel intervention is acquired (5) Anemia: Patient's hemoglobin remains in the 8 g range we do not feel he is having an acute GI bleed at this time he will be maintained on Protonix 40 twice daily Currently is 9.4 (6) Diabetes mellitus, type 2: Patient typically takes Lantus and Trulicity for blood pressure control there is some documentation that he may have may or may not be on glyburide also. Patient had persistent problems with hypoglycemia and Lantus will be discontinued altogether on 10/20 and will just be on sliding scale (1/29) (7) Encephalopathy: Patient has encephalopathy initially was thought to be secondary to infectious etiologies or perhaps his acidosis patient remains with significant encephalopathy his acidosis does continue which could affect this. His infection should be treated his CT scan was without gross abnormalities but with his history of atrial fibrillation we will try to pursue an MRI of his brain his agitation is prevented this. Will use Haldol as restraints in hopes we can control his behavior enough to pursue MRI scan This appears to have resolved. Will continue to monitor. Patient did have an episode of sundowning overnight and confusion in the AM. (2/ 3) Do not consider this to be metabolic encepahlopathy no longer as patient is no longer acidotic. (8) DVT prophylaxis: Will have chemoprophylaxis initiated. Patient is on heparin (9) Coronary artery disease: Patient has history of coronary artery disease will be maintained on his carvedilol and amlodipine aspirin was previously on his med reconciliation this would continue 81 mg daily Spent 25 minutes in management of patient Subjective Pt is improved but confused, still with respiratory distress Constitutional: + fatigue and + weakness Respiratory: + dyspnea and + stopping breathing during sleep Cardiovascular: no chest pain and no dyspnea on exertion Gastrointestinal: no abdominal pain, no nausea and no vomiting Musculoskeletal: no joint pain and no swelling Integumentary: no rash and no lesions Physical Exam 2 Vital Signs (Past 24 Hours): Last Vital Signs Temp 36.9 C 10/23/18 12:00 Pulse 62 10/23/18 12:00 Resp 24 10/23/18 12:00 BP 195/77 H 10/23/18 12:00 Pulse Ox 93 10/23/18 12:00 Constitutional: well developed and average body habitus Eyes: no conjunctival abnormality and no scleral abnormality Neck: normal visual inspection and trachea midline Respiratory: + respiratory distress, + labored breathing and + uses accessory muscles Cardiovascular: RRR, no murmur, no edema Gastrointestinal (Abdomen): normal bowel sounds, soft, nontender, no hepatosplenomegaly Musculoskeletal: no cyanosis or clubbing, extremities motor strength 5/5
--- NOTE | 2018-10-29 07:38 | Hospitalist Progress Note ---
Date of Service October 29, 2018 Assessment & Plan (1) Respiratory acidosis: Metabolic encephalopathy secondary to acute hypercarbic respiratory failure and/or pyelonephritis and/or acute renal failure Patient has h/o sleep apnea/narcotics use, obesity and renal failure. 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 Patient was intubated s/p code blue. Patient also had acute kidney failure on top of chronic kidney disease stage III Patient was extubated on 10/22 It appears the metabolic encephalopathy has resolved. added lisnopril due to blood pressure (2/3) continue to durese him until he reaches his normal weight. (2) Pyelonephritis: Patient reportedly has acute pyelonephritis of blood and urine cultures positive for E. coli cultures initiated on cefepime however sensitivities suggest that Rocephin will better LOYDA he was changed to Rocephin 19 October at 2 g daily, ultrasound does not show obstruction of the left ureter just some residual stone debris. Urology is visited the patient does not feel any intervention is required. Patient continues to respond to antibiotics (2/3) Patient complains of suprapubic pain today he did have a good bowel movement which did not alleviate this. We will check an ultrasound of his bladder and urine culture adding Proscar and Flomax as he says this is been a long-standing problem for him Patient remains on vancomycin and ceftriaxone (3) Acute on chronic renal failure: acute on chronic kidney disease stage 3 patient continues to need oversight (4) Hydronephrosis with renal calculous obstruction: Reportedly the patient has mild hydronephrosis without complete obstruction seen at [facility] repeat ultrasound there is also without significant abnormalities urology does not feel intervention is acquired (5) Anemia: Patient's hemoglobin remains stable we do not feel he is having an acute GI bleed at this time he will be maintained on Protonix 40 twice daily (6) Diabetes mellitus, type 2: Patient typically takes Lantus and Trulicity for blood glucose control there is some documentation that he may have may or may not be on glyburide also. Basal bolus insulin (7) Encephalopathy: Patient has encephalopathy initially was thought to be secondary to infectious etiologies or perhaps his acidosis patient remains with significant encephalopathy when he is off his BiPAP and likely his acidosis recurs (8) DVT prophylaxis: Will have chemoprophylaxis initiated. Patient is on heparin (9) Coronary artery disease: Patient has history of coronary artery disease will be maintained on his carvedilol and amlodipine aspirin was previously on his med reconciliation this would continue 81 mg daily Subjective Patient has no complaints but is on BiPAP. He seems to desaturate or decompensate off of his assistive breathing very quickly. I asked Dr. Reyes pulmonary medicine to see the patient again today if we cannot have the patient off of BiPAP disposition will be very challenging Review of Systems ROS: well nourished well developed. No double vision blurry vision No problems with speech or swallowing No palpitations, chest pain or pressure Continues with his breathing problems No abdominal pain nausea vomiting diarrhea changes in appetite or weight No burning urine urine frequency or changes in color No focal joint pain or muscle pain No skin rashes or oral lesions No unusual bruising or bleeding No focused back pain or numbness or loss of strength He cannot recall events of his previous hospital stay Physical Exam 2 Vital Signs (Past 24 Hours): Last Vital Signs Temp 37.0 C 10/29/18 04:40 Pulse 63 10/29/18 04:40 Resp 20 10/29/18 04:40 BP 152/65 H 10/29/18 04:40 Pulse Ox 93 10/29/18 04:40 The patient appeared well nourished and normally developed. He is morbidly obese Vital signs as documented. His oxygen saturations are stable on BiPAP and CPAP Head exam is unremarkable. normocephalic, atraumatic Neck is with jugular venous distension, Lungs are coarse bilaterally with good air movement on BiPAP Cardiac exam reveals Rhythm sounds regular. First and second heart sounds normal. Abdominal exam reveals normal bowel sounds, no masses, no organomegaly has some suprapubic pain urology workup will be explored as he presented with UTI Extremities are moderately edematous but both pedal pulses are present Neurologic exam is A&Ox3 while on BiPAP, no focal deficits, strength is equal bilateral but reduced Psychologically seems anxious and depressed Skin is warm Dry without bruises or lesions
[2018-10-29] MEDS: cefTRIAXone SODIUM 2,000 MG in DEXTROSE 5% 50 ML IV SCH (07:52)
[2018-10-29] MEDS: FUROSEMIDE 40 MG in SYRINGE 0 ML IV SCH (07:53)
[2018-10-29] MEDS: ALLOPURINOL 300 MG TAB PO SCH (07:53)
[2018-10-29] MEDS: HEPARIN SOD 5,000 UNIT/0.5 ML VIAL SQ SCH ×2 (07:53→20:58)
[2018-10-29] MEDS: AMLODIPINE BESYLATE 5 MG TAB PO SCH (07:53)
[2018-10-29] MEDS: ASPIRIN 81 MG ECTAB PO SCH (07:54)
[2018-10-29] MEDS: CARVEDILOL 25 MG TAB PO SCH ×2 (07:55→20:59)
[2018-10-29] MEDS: MODAFINIL 100 MG TAB PO SCH (08:02)
[2018-10-29] MEDS: INSULIN ASPART 100 UNITS/ML 3 ML PEN SC SCH ×4 (09:09→21:00)
--- NOTE | 2018-10-29 12:24 | Critical Care Progress Note ---
Date of Service October 29, 2018 Assessment & Plan (1) AVELINA (obstructive sleep apnea): In continuation of care, the patient has seemed to improve from a metabolic encephalopathy standpoint with clearing of infection. Hemodynamically , the patient has been doing very well. From a pulmonary standpoint, the patient continues to require BiPAP at times for presumed CO2 accumulation. On evaluation today, the patient clinically appears much improved from my initial assessment. Regardless, he is continuing to require increasing use of his BiPAP. This is likely related to his chronic diagnosis of obstructive sleep apnea. He is currently requiring 2 L nasal cannula while awake. Per discussion with nursing, the patient does do well for a few hours off of the BiPAP, and then slowly seems to accumulate and become more somnolent. He then seems to improve with use of BiPAP. At this point, per recommendations and discussion with Dr. Navarro, we will obtain an ABG if the patient were to become obtunded/somnolent while on nasal cannula alone and while actively awake. The patient certainly will require BiPAP while sleeping at this point as his obstructive sleep apnea has become significant to the point that he seems to accumulate CO2 in a short amount of time. At this point, this information was discussed with the patient and he seems somewhat receptive to the idea, however in previous discussions and with a bedside discussion with the patient's , she does not seem encouraged that he will continue to wear the BiPAP as recommended. With that being said, would agree with concerns for change in patient's [facility] form to recommend that it does state removal of CPAP/BiPAP comments if he does wish to proceed with using these interventions. If the patient is not willing to continue with BiPAP, he will continue to decline, and at that point, palliative care evaluation may be most appropriate. Thank you for allowing us to continue to participate in the care of this patient. Please feel free to reach out to us at any time for any further recommendations. (2) Cardiac arrest: (3) Goals of care, counseling/discussion: (4) HTN (hypertension): (5) S/P admission to ICU (intensive care unit): Supervising Physician Co-Signing Physician Notes I have persionally seen this patient and examine the case. I also agree with the assessment and recommendations which were made by Zay Gerber. We also had long discussion with the family about the plan of care and we are reaching to the stage, Palliative care is more beneficial for the patient since the patient do not want to use the CPAP/BiPAP and according to the family, he is not going to use from out patient. Case was also D/W the Primary provider at length. DR. Bernadette COULTER. Subjective This patient was seen in conjunction with Dr. Navarro at the request of primary attending services. Patient was initially admitted to the ICU after a systolic arrest at [facility] requiring emergent endotracheal intubation and debating whether or not to proceed with therapeutic hypothermia protocols. Eventually, this was decided against as the patient was found to be bacteremic from presumed E. coli infection. The patient was easily extubated in less than 24 hours. He continued to show improvement throughout his stay and seemed to be clearing from a metabolic encephalopathy standpoint. Initially, family did have discussion regarding continuation of CPAP/BiPAP as the patient had not been compliant in the past. Initially, they refused use of CPAP/BiPAP, however after family discussion including other family members, it was agreed that he would have a trial on the CPAP/BiPAP. Throughout his continued stay in the hospital, he has required BiPAP for presumed CO2 accumulation and worsening state of somnolence. There has been previous VBG's present on the chart, however I would be interested to review ABGs. Regardless, the patient has a history of obstructive sleep apnea in combination with current state of illness. He has shown great improvement from his initial presentation in the ICU, however he has continued to require BiPAP for maintaining current mental status. He offers no new complaints today. He does complain of some minimal chest discomfort from compressions. He recently had lunch and reports he has been having bowel movements as well. Physical Exam 2 Vital Signs (Past 24 Hours): Last Vital Signs Temp 37.5 C 10/29/18 07:58 Pulse 60 10/29/18 11:15 Resp 16 10/29/18 11:15 BP 156/64 H 10/29/18 11:15 Pulse Ox 94 10/29/18 11:15 Physical Exam: VITAL SIGNS - Vital signs and nursing notes were reviewed. GENERAL - 78-year-old male appearing his stated age who is in no acute distress. LUNGS - Chest wall symmetric without accessory muscle use, intercostals retractions, or central cyanosis. Normal vesicular breath sounds CTA B/L. No wheezes, rales, or rhonchi appreciated. CARDIAC - RRR with S1/S2. No murmur, rubs, or gallops appreciated. No reproducible tenderness to palpation appreciated over the anterior chest wall. ABDOMEN - Abdominal contour obese without pulsations or visible masses. BS normoactive all four quadrants. No tenderness, palpable masses, hepatosplenomegaly, or ascites noted. NEUROLOGIC - No focal neurological deficits. PSYCH - A&Ox3. Pleasant and appropriate with examiners.
[2018-10-29] MEDS ORDERED: VANCOMYCIN TROUGH ONE (14:30)
--- NOTE | 2018-10-29 14:34 | Palliative Care Progress Note ---
Date of Service October 29, 2018 Assessment & Plan (1) Goals of care, counseling/discussion: -Patient has greatly improved since his ICU stay. He is now wearing bipap at night and during sleep. -Had discussion about goals of care. Patient stated he understands that without bipap he will continue to have CO2 narcosis and could . He states that he is willing to give bipap a try but is always keeping in mind that if certain treatments diminish his quality of life, he may choose not to do them at some point. -Discussed his POLST form that was done by his on his behalf when he was in ICU. He would like to go over the POLST form again and change it to his current wishes, which are to remain a DNR but trial of full treatment including bipap/cpap if needed. Patient does have living will which states if he has end- stage condition he does not want any life-prolonging measures. He is not there yet. -Will return tomorrow 10/30 when is here to redo POLST form. -Continue with current treatment. Plan is for SNF for rehab prior to returning home. (2) Cardiac arrest: (3) AVELINA (obstructive sleep apnea): (4) Acute respiratory failure with hypoxia and hypercarbia: (5) Acute on chronic renal failure: Subjective Patient is improving clinically and doing much better. He was fully awake and alert today. Able to converse and make decisions. Discussed goals of care. See A &P for details. Constitutional: + weakness Ear, Nose, Mouth, Throat: no dysphagia Respiratory: + cough and + dyspnea on exertion; no dyspnea Cardiovascular: no chest pain and no edema Gastrointestinal: no abdominal pain, no nausea and no vomiting Integumentary: no problem reported Neurologic: no confusion Psychiatric: no anxiety Physical Exam 2 Vital Signs (Past 24 Hours): Last Vital Signs Temp 37.5 C 10/29/18 07:58 Pulse 60 10/29/18 11:15 Resp 16 10/29/18 11:15 BP 156/64 H 10/29/18 11:15 Pulse Ox 94 10/29/18 11:15 Constitutional: + morbidly obese (No acute distress) ENMT: external ear and nose normal, oropharynx normal Neck: normal visual inspection and trachea midline Respiratory: normal respiratory effort Auscultation: + diminished lung sounds Cardiovascular: Rate/Rhythm: regular rate and regular rhythm Extremities: + edema (Generalized edema) Gastrointestinal (Abdomen): Inspection/Auscultation: abdomen normal to inspection and + abdomen distended (Obesely distended) Neurologic: awake; not confused Psychiatric: A+Ox3, euthymic affect Time Spent Midlevel 35 minutes with >50% of time spent at bedside with patient discussing condition and GOC.
--- NOTE | 2018-10-29 16:20 | Pharmacy Report ---
Pharmacy Abx Dose Short Note - Date of Service October 29, 2018 - Assessment & Plan Assessment 78 year old M receiving IV Vancomycin for treatment of pneumonia Day # 6 of antimicrobial therapy. Plan Vancomycin * Trough level of 23.3 mcg/mL (appropriately drawn) is supratherapeutic. Patient received ~300mg of Vancomycin by the time level was assessed. It seems patient is accumulating Vancomycin due to obesity (BMI 46.9 kg/m2). Lengthen dosing interval to target a lower trough. Nursing advised to discontinue Vancomycin infusion that was hung ~1530. Delay next dose to give time for Vancomycin to fall below 20 mcg/mL. * Change to 1500 mg IV every 18 hours * Goal trough level for pneumonia : 15 to 20 mcg/mL * No repeat trough ordered at this time as therapy with Vancomycin likely ending soon; will need to clarify with provider if 7 days sufficient treatment course. If Vancomycin to be continued beyond tomorrow, will need to order trough to reassess dosing regimen at that time Pharmacy will continue to follow and will adjust dose/frequency as necessary. Thank you.
--- NOTE | 2018-10-29 19:44 | Ultrasound Report ---
US renal/blad retro comp HISTORY: 78 years-old Male previous mild L hydro persistent urgency and pain acute left-sided flank pain COMPARISON: Renal ultrasound 10/18/2018 TECHNIQUE: Multiple real-time sonographic images of the kidneys and urinary bladder were obtained ass essing grayscale appearance and color flow FINDINGS: Right kidney measures 14.0 cm in length and demonstrates no renal calculi, hydronephrosis or suspicio us mass lesions. 9 mm cyst of the interpolar right kidney. Cortical medullary differentiation is pres erved. Left kidney measures 14.0 cm in length. Moderate left-sided hydronephrosis. Previously noted left siva al calculi not definitively seen. No suspicious mass lesions about the left kidney. Decompressed urinary bladder with Woodson catheter noted. IMPRESSION: 1. Moderate left-sided hydronephrosis. 2. Unremarkable sonographic appearance of the right kidney. 3. Decompressed urinary bladder with Woodson catheter. The above report was generated using voice recognition software. It may contain grammatical, syntax o r spelling errors. Electronically signed by: Ian Smyth M.D. 10/29/2018 7:43 PM
[2018-10-29] MEDS: LISINOPRIL 10 MG TAB PO SCH (20:57)
[2018-10-29] MEDS: QUETIAPINE FUMARATE 25 MG TABLET PO SCH (20:58)
[2018-10-29] MEDS: TAMSULOSIN HCL 0.4 MG CAP PO SCH (20:59)
[2018-10-29] MEDS: LIDOCAINE 5% 1 PATCH TD SCH (21:10)
[2018-10-30] MEDS ORDERED: VANCOMYCIN HCL 1,500 MG in SODIUM CHLORIDE 0.9% 500 ML IV SCH
[2018-10-30] MEDS: INSULIN ASPART 100 UNITS/ML 3 ML PEN SC SCH ×4 (08:05→20:07)
[2018-10-30 09:13] LABS: Hematocrit (blood only) 27.4 % (42-52); Hemoglobin 8.1 g/dL (14.0-18.0); Mean Corpuscular Hgb Conc 29.6 g/dL (32-36); Mean Platelet Volume 9.7 fL (7.4-10.4); Platelet Count 220 K/uL (130-400); RDW Coefficient of Variation 16.7 % (11.5-14.5); RDW Standard Deviation 55.4 fL (36.4-46.3); Red Blood Count 3.01 M/uL (4.7-6.1); White Blood Count 6.28 K/uL (4.8-10.8)
[2018-10-30] MEDS: ALLOPURINOL 300 MG TAB PO SCH (09:36)
[2018-10-30] MEDS: AMLODIPINE BESYLATE 5 MG TAB PO SCH (09:37)
[2018-10-30] MEDS: SENNA 8.6 MG TAB PO SCH ×2 (09:38→20:00)
[2018-10-30] MEDS: ASPIRIN 81 MG ECTAB PO SCH (09:39)
[2018-10-30] MEDS: CARVEDILOL 25 MG TAB PO SCH ×2 (09:39→19:59)
[2018-10-30] MEDS: FINASTERIDE 5 MG TAB PO SCH (09:39)
[2018-10-30] MEDS: FUROSEMIDE 40 MG in SYRINGE 0 ML IV SCH (09:40)
[2018-10-30 09:45] LABS: Albumin Level 1.9 gm/dl (3.4-5.0); BUN Creatinine Ratio 23.3 (10-20); Calcium 8.3 mg/dl (8.5-10.1); Creatinine Clr Calc Pharmacy 68.3 ml/min; Est GFR (African American) 67.9; Est GFR (Non-African American) 58.6; Potassium 3.7 mmol/L (3.5-5.1)
[2018-10-30 09:47] LABS: Albumin Globulin Ratio 0.5 (0.9-2); Bilirubin,Total 0.3 mg/dl (0.2-1); Globulin 3.9 gm/dl (2.5-4.0); Total Protein 5.8 gm/dl (6.4-8.2)
[2018-10-30] MEDS: cefTRIAXone SODIUM 2,000 MG in DEXTROSE 5% 50 ML IV SCH (10:01)
[2018-10-30] MEDS: MODAFINIL 100 MG TAB PO SCH (10:07)
[2018-10-30] MEDS: HEPARIN SOD 5,000 UNIT/0.5 ML VIAL SQ SCH ×2 (10:11→20:02)
--- NOTE | 2018-10-30 14:43 | Palliative Care Progress Note ---
Date of Service October 30, 2018 Assessment & Plan (1) Goals of care, counseling/discussion: -Long discussion with patient and his , Pilar. We went over the previous POLST form. Patient would like to do a new one, but wants time to discuss it amongst his family. His sons are coming to visit tonight or tomorrow. -Patient is now willing to wear the bipap/cpap and would even be willing to do it at home at night. He understands the consequences of not wearing it. -PLan is for patient to go to rehab in [place], and eventually back home. -Patient will have me paged if/when ready to do POLST form. I left the previous POLST in his room and he can dispose of it if he wants. -Will follow peripherally for now. (2) Cardiac arrest: (3) AVELINA (obstructive sleep apnea): (4) Acute respiratory failure with hypoxia and hypercarbia: (5) Acute on chronic renal failure: Subjective Patient is doing well today. Sitting up in chair. Pilar is present. We discussed goals of care and POLST form. See A&P. Constitutional: + weakness Ear, Nose, Mouth, Throat: no sore throat and no dysphagia Respiratory: + cough and + dyspnea on exertion; no sputum production Cardiovascular: + edema; no chest pain Gastrointestinal: no abdominal pain, no nausea and no vomiting Neurologic: no confusion Psychiatric: no depression and no anxiety Physical Exam 2 Vital Signs (Past 24 Hours): Last Vital Signs Temp 36.7 C 10/30/18 11:42 Pulse 58 L 10/30/18 11:42 Resp 20 10/30/18 11:42 BP 146/73 H 10/30/18 11:42 Pulse Ox 95 10/30/18 11:42 Constitutional: + morbidly obese (No acute distress) ENMT: external ear and nose normal, oropharynx normal Neck: normal visual inspection and trachea midline Respiratory: normal respiratory effort Auscultation: + diminished lung sounds and + rhonchi Cardiovascular: Rate/Rhythm: regular rate and regular rhythm Extremities: + edema (Generalized edema) Gastrointestinal (Abdomen): Inspection/Auscultation: abdomen normal to inspection and + abdomen distended (Obesely distended) Neurologic: awake; not confused Psychiatric: A+Ox3, euthymic affect Time Spent Midlevel 40 minutes with >50% of time spent at bedside with patient and family discussing GOC and POLST form.
--- NOTE | 2018-10-30 17:13 | Hospitalist Progress Note ---
Date of Service October 30, 2018 Assessment & Plan (1) Respiratory acidosis: Metabolic encephalopathy secondary to acute hypercarbic respiratory failure and/or pyelonephritis and/or acute renal failure Patient has h/o sleep apnea/narcotics use, obesity and renal failure. 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 Patient was intubated s/p code blue. Patient also had acute kidney failure on top of chronic kidney disease stage III Patient was extubated on 10/22 It appears the metabolic encephalopathy has resolved. added lisnopril due to blood pressure (2/3) continue to durese him renal function has been stable There is some concern the patient may have MRSA pneumonia he has been on vancomycin it is sensitive to Bactrim we will institute transition to Bactrim (2) Pyelonephritis: Patient reportedly has acute pyelonephritis of blood and urine cultures positive for E. coli cultures initiated on cefepime however sensitivities suggest that Rocephin will better LOYDA he was changed to Rocephin 19 October at 2 g daily, ultrasound does not show obstruction of the left ureter just some residual stone debris. Urology is visited the patient does not feel any intervention is required. Patient continues to respond to antibiotics (2/3) Patient complains of suprapubic pain 2/4 he did have a good bowel movement which did not alleviate this. His symptoms have resolved after adding Proscar and Flomax as he says this is been a long-standing problem for him ceftriaxone (3) Acute on chronic renal failure: acute on chronic kidney disease stage 3 patient (4) Hydronephrosis with renal calculous obstruction: Reportedly the patient has mild hydronephrosis without complete obstruction seen at [facility] is not planning intervention is acquired (5) Anemia: Patient's hemoglobin remains stable we do not feel he is having an acute GI bleed at this time he will be maintained on Protonix 40 twice daily (6) Diabetes mellitus, type 2: Patient typically takes Lantus and Trulicity for blood glucose control there is some documentation that he may have may or may not be on glyburide also. Basal bolus insulin (7) Encephalopathy: Patient has encephalopathy initially was thought to be secondary to infectious etiologies or perhaps his acidosis patient remains with significant encephalopathy when he is off his BiPAP and likely his acidosis recurs (8) DVT prophylaxis: Will have chemoprophylaxis initiated. Patient is on heparin (9) Coronary artery disease: Patient has history of coronary artery disease will be maintained on his carvedilol and amlodipine aspirin was previously on his med reconciliation this would continue 81 mg daily Subjective Patient is much more awake and alert today he is on nasal cannula oxygen it is clear that he does have a suppression of his respiratory drive by escalating his hypoxia. We will tolerate his hypoxia to be in the 80-90 range and use nasal cannula during the day. His biggest complaints today revolve around possible gouty changes to his feet with foot pain. His planes of urinary urgency has resolved with institution of Flomax and Proscar and resolving his constipation Review of Systems ROS: well nourished well developed. No double vision blurry vision No problems with speech or swallowing No palpitations, chest pain or pressure No still with loose cough and shortness of breath No abdominal pain nausea vomiting diarrhea changes in appetite or weight No burning urine urine frequency or changes in color No bilateral foot pain which he says feels consistent with his gout No skin rashes or oral lesions No unusual bruising or bleeding No focused back pain or numbness or loss of strength No changes in memory or confusion Physical Exam 2 Vital Signs (Past 24 Hours): Last Vital Signs Temp 36.7 C 10/30/18 16:27 Pulse 57 L 10/30/18 16:27 Resp 21 10/30/18 16:27 BP 164/70 H 10/30/18 16:27 Pulse Ox 96 10/30/18 16:27 The patient appeared well nourished and normally developed. He is morbidly obese he is alert and oriented today Vital signs as documented. Oxygen saturations are being tolerated on nasal cannula Head exam is unremarkable. normocephalic, atraumatic Neck is without jugular venous distension, thyromegaly, or lymphademopathy Lungs are with coarse rhonchi bilaterally and poor air movement throughout Cardiac exam reveals Rhythm is regular. First and second heart sounds normal. Abdominal exam reveals normal bowel sounds, no masses, no organomegaly Extremities are moderately edematous and both pedal pulses are present Neurologic exam is A&Ox3, no focal deficits, strength is equal bilateral Psychologically seems neither anxious or depressed Skin is some erythema to his lower extremities
[2018-10-30] MEDS: LISINOPRIL 10 MG TAB PO SCH (19:59)
[2018-10-30] MEDS: TAMSULOSIN HCL 0.4 MG CAP PO SCH (19:59)
[2018-10-30] MEDS: QUETIAPINE FUMARATE 25 MG TABLET PO SCH (20:00)
[2018-10-30] MEDS: LIDOCAINE 5% 1 PATCH TD SCH (20:01)
[2018-10-30] MEDS: SULFAMETHOXAZOLE/TRIMETHOPRIM DS 800/160MG TAB PO SCH (22:00)
--- NOTE | 2018-10-31 07:23 | Hospitalist Progress Note ---
Date of Service October 31, 2018 Assessment & Plan (1) Respiratory acidosis: Metabolic encephalopathy secondary to acute hypercarbic respiratory failure and/or pyelonephritis and/or acute renal failure. This patient is extremely sensitive to hypoxia being his pulmonary respiratory drive and if he is over supplemented he reduces his respiratory rate increases his carbon dioxide retention care needs to be made to maintain his oxygen saturations in and around 90% Patient has h/o sleep apnea, obesity and renal failure. 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 Patient was intubated s/p code blue, now extubated. Patient also had acute kidney failure on top of chronic kidney disease stage III metabolic encephalopathy is resolved. added lisinopril for better blood pressure control without renal distress renal function has been stable while on diuretics There is some concern the patient may have MRSA pneumonia he has been on vancomycin it is sensitive to Bactrim we will institute transition to Bactrim (2) Pyelonephritis: Patient reportedly presented with acute pyelonephritis of blood and urine cultures positive for E. coli cultures itreated with Rocephin repeat ultrasound suggests moderated left sided hydronephrosis, Urology is visited the patient does not feel any intervention is required at this time allowing recovery from pulmonary issues before considering anesthesia. Patient continues to respond to antibiotics (2/3)-> changed to bactrim 2/ to cover ecoli and concern for staph pneumonia Patient complains of suprapubic pain 10/29, symptoms have resolved after adding Proscar and Flomax and facitlitationg bowel movements, he says this is been a long-standing problem for him (3) Acute on chronic renal failure: acute on chronic kidney disease stage 3, function has improved (4) Hydronephrosis with renal calculous obstruction: Reportedly the patient has persistent hydronephrosis without complete obstruction seen at [place] [facility] is not planning intervention is acquired (5) Anemia: Patient's hemoglobin remains stable, but low, he will be maintained on Protonix 40 twice daily. possibly anemia of chronic disease (6) Diabetes mellitus, type 2: Patient typically takes Lantus and Trulicity for blood glucose control there is some documentation that he may have may or may not be on glyburide also. Basal bolus insulin, will need adjustment / (7) Encephalopathy: Patient has encephalopathy initially was thought to be secondary to infectious etiologies or perhaps his acidosis patient remains with significant encephalopathy when he is off his BiPAP and likely his acidosis recurs (8) DVT prophylaxis: Will have chemoprophylaxis initiated. Patient is on heparin (9) Coronary artery disease: Patient has history of coronary artery disease he has been stable on carvedilol and amlodipine aspirin and is tolerant of addition of lisinpril Subjective Patient is unremarkably well he does however become fairly significantly hypoxemic with sleeping he is reinforced to use his CPAP BiPAP. Case management is in the process of evaluating him for skilled rehab at [place] Review of Systems ROS: well nourished well developed. No double vision blurry vision No problems with speech or swallowing No palpitations, chest pain or pressure Continue breathlessness dyspnea on exertion No abdominal pain nausea vomiting diarrhea changes in appetite or weight No burning urine urine frequency or changes in color, urine symptoms have improved greatly Right foot pain consistent with previous history of gout No skin rashes or oral lesions No unusual bruising or bleeding No focused back pain or numbness or loss of strength No changes in memory or confusion Physical Exam 2 Vital Signs (Past 24 Hours): Last Vital Signs Temp 37.1 C 10/31/18 03:10 Pulse 54 L 10/31/18 03:10 Resp 22 10/31/18 03:10 BP 166/75 H 10/31/18 03:10 Pulse Ox 93 10/31/18 03:10 The patient appeared well nourished and normally developed. He is morbidly obese Vital signs as documented. TMs with hypoxia when not on BiPAP at rest Head exam is unremarkable. normocephalic, atraumatic Neck is without jugular venous distension, thyromegaly, or lymphademopathy Lungs are clear to auscultation but diminished air movement throughout Cardiac exam reveals Rhythm is regular. First and second heart sounds normal. Abdominal exam reveals normal bowel sounds, no masses, no organomegaly Extremities are mildly edematous and both pedal pulses are present his right foot is mostly tender in the lateral aspect along the metatarsal and at the malleolus Neurologic exam is A&Ox3, no focal deficits, strength is equal bilateral Psychologically seems neither anxious or depressed Skin is warm Dry without bruises or lesions
[2018-10-31] MEDS: INSULIN ASPART 100 UNITS/ML 3 ML PEN SC SCH ×4 (08:37→20:48)
[2018-10-31] MEDS: AMLODIPINE BESYLATE 5 MG TAB PO SCH (08:39)
[2018-10-31] MEDS: ALLOPURINOL 300 MG TAB PO SCH (08:39)
[2018-10-31] MEDS: CARVEDILOL 25 MG TAB PO SCH ×2 (08:39→20:44)
[2018-10-31] MEDS: FUROSEMIDE 40 MG in SYRINGE 0 ML IV SCH (08:40)
[2018-10-31] MEDS: ASPIRIN 81 MG ECTAB PO SCH (08:40)
[2018-10-31] MEDS: FINASTERIDE 5 MG TAB PO SCH (08:41)
[2018-10-31] MEDS: HEPARIN SOD 5,000 UNIT/0.5 ML VIAL SQ SCH ×2 (08:41→20:44)
[2018-10-31] MEDS: MODAFINIL 100 MG TAB PO SCH (09:14)
[2018-10-31] MEDS: SULFAMETHOXAZOLE/TRIMETHOPRIM DS 800/160MG TAB PO SCH ×2 (09:14→20:44)
--- NOTE | 2018-10-31 13:17 | Communication Note ---
Date of Service: October 31, 2018 Pt not formally evaluated by our service today. Tentative outpatient Urology follow-up appointment with Dr Tran on 11/16/18 at 9AM with voiding trial to follow. Please make pt aware when closer to disposition, thank you!
[2018-10-31] MEDS ORDERED: ACETAMINOPHEN 325 MG TAB PO PRN (14:36)
[2018-10-31] MEDS: LIDOCAINE 5% 1 PATCH TD SCH (20:38)
[2018-10-31] MEDS: TAMSULOSIN HCL 0.4 MG CAP PO SCH (20:43)
[2018-10-31] MEDS: QUETIAPINE FUMARATE 25 MG TABLET PO SCH (20:43)
[2018-10-31] MEDS: LISINOPRIL 10 MG TAB PO SCH (20:43)
[2018-10-31] MEDS: SENNA 8.6 MG TAB PO SCH (20:43)
[2018-10-31] MEDS ORDERED: INSULIN GLARGINE SOLOSTAR 100 UNITS/ML 3 ML PEN SC SCH (21:00)
[2018-11-01 07:29] LABS: BUN Creatinine Ratio 20.6 (10-20); Calcium 8.3 mg/dl (8.5-10.1); Creatinine Clr Calc Pharmacy 50.7 ml/min; Est GFR (African American) 47.8; Est GFR (Non-African American) 41.3; Potassium 3.8 mmol/L (3.5-5.1)
[2018-11-01] MEDS: CARVEDILOL 25 MG TAB PO SCH ×2 (08:05→20:41)
[2018-11-01] MEDS: ASPIRIN 81 MG ECTAB PO SCH (08:05)
[2018-11-01] MEDS: ALLOPURINOL 300 MG TAB PO SCH (08:06)
[2018-11-01] MEDS: FINASTERIDE 5 MG TAB PO SCH (08:06)
[2018-11-01] MEDS: HEPARIN SOD 5,000 UNIT/0.5 ML VIAL SQ SCH ×2 (08:06→20:41)
[2018-11-01] MEDS: SULFAMETHOXAZOLE/TRIMETHOPRIM DS 800/160MG TAB PO SCH ×2 (08:06→20:40)
[2018-11-01] MEDS: AMLODIPINE BESYLATE 5 MG TAB PO SCH (08:06)
[2018-11-01] MEDS: INSULIN ASPART 100 UNITS/ML 3 ML PEN SC SCH ×4 (08:09→20:44)
[2018-11-01] MEDS: MODAFINIL 100 MG TAB PO SCH (09:17)
[2018-11-01] MEDS ORDERED: COLCHICINE 0.6 MG TAB PO ONE (11:20)
--- NOTE | 2018-11-01 15:45 | Palliative Care Progress Note ---
Date of Service November 01, 2018 Assessment & Plan (1) Goals of care, counseling/discussion: -This 78 year old male with PMH AVELINA refusing to wear cpap, spinal surgeries, kidney stones, afib/aflutter s/p ablation, CABG, htn, and others, presented to [facility] from [facility] with acute kidney injury related to bilateral nephrolithiasis. Patient had back surgery back in July at which time it was discovered that he had a very large kidney stone. He then had lithotripsy done to break the stone up. The procedure had to be repeated on . After that time, patient became weak and ill at home. He went to his PCP where his kidney function was found to be worsening and was referred to ED. Patients renal function apparently continued to worsen, and since he had his procedure done at [place], he was transferred. Upon arrival, patient was admitted to PCU and was treated for infection related to nephrolithasis. He was doing ok until early the morning of admission when he went for MRI to rule out other issues that could be causing his infection and renal failure, when he suddenly went into cardiac arrest and was a code blue. He only required two minutes of CPR and ROSC was achieved. He was intubated in the ICU. Cardiac arrest was thought to be due to respiratory failure related to his AVELINA and refusing to wear CPAP. Patient was successfully extubated on 10/22-continues to require O2. He is tolerating longer periods on BiPAP/CPAP -Patient appears to be improving-transferred to the floor on 10/23, will continue to follow and assist with medical decision making as needed -Plan is to continue current care and hope for continued improvement. -Continue to encourage patient's compliance with either BiPAP/CPAP -patient seems to realize how close he was to not recovering -Plan at this time is to transfer to rehab once medically stable (2) Cardiac arrest: (3) AVELINA (obstructive sleep apnea): (4) Acute respiratory failure with hypoxia and hypercarbia: (5) Acute on chronic renal failure: Subjective Patient continues to improve-no acute distress, continues to have significant cough. Patient is much more alert and conversational on exam this a.m. Patient 's at bedside Review of Systems Patient tolerating BiPAP/CPAP for longer periods of time Positive cough Physical Exam 2 Vital Signs (Past 24 Hours): Last Vital Signs Temp 36.8 C 11/01/18 15:22 Pulse 62 11/01/18 15:22 Resp 18 11/01/18 15:22 BP 136/92 11/01/18 15:22 Pulse Ox 92 11/01/18 15:22 Physical Exam: PE: No acute distress Respirations: Unlabored, positive cough CV: Appears well perfused, regular rate on monitor Abdomen: Obese Extremities: Decreased edema Neuro: Alert and oriented Time Spent Attending Total time spent 25 minutes with greater than 50% of the time spent at bedside discussing plan of care and goals of care with patient and
[2018-11-01] MEDS: ACETAMINOPHEN 1,000 MG/100 ML VIAL IV PRN (20:15)
[2018-11-01] MEDS: QUETIAPINE FUMARATE 25 MG TABLET PO SCH (20:38)
[2018-11-01] MEDS: LISINOPRIL 10 MG TAB PO SCH (20:39)
[2018-11-01] MEDS: LIDOCAINE 5% 1 PATCH TD SCH (20:39)
[2018-11-01] MEDS: SENNA 8.6 MG TAB PO SCH (20:39)
[2018-11-01] MEDS: TAMSULOSIN HCL 0.4 MG CAP PO SCH (20:40)
[2018-11-02] MEDS: ACETAMINOPHEN 1,000 MG/100 ML VIAL IV PRN (04:15)
[2018-11-02] MEDS: CARVEDILOL 25 MG TAB PO SCH ×2 (08:11→20:03)
[2018-11-02] MEDS: FINASTERIDE 5 MG TAB PO SCH (08:11)
[2018-11-02] MEDS: ASPIRIN 81 MG ECTAB PO SCH (08:11)
[2018-11-02] MEDS: SULFAMETHOXAZOLE/TRIMETHOPRIM DS 800/160MG TAB PO SCH ×2 (08:11→20:06)
[2018-11-02] MEDS: ALLOPURINOL 300 MG TAB PO SCH (08:11)
[2018-11-02] MEDS: AMLODIPINE BESYLATE 5 MG TAB PO SCH (08:12)
[2018-11-02] MEDS: HEPARIN SOD 5,000 UNIT/0.5 ML VIAL SQ SCH ×2 (08:12→20:09)
[2018-11-02] MEDS: INSULIN ASPART 100 UNITS/ML 3 ML PEN SC SCH ×4 (08:14→20:16)
[2018-11-02] MEDS: MODAFINIL 100 MG TAB PO SCH (08:20)
[2018-11-02] MEDS ORDERED: COLCHICINE 0.6 MG TAB PO ONE (12:48)
--- NOTE | 2018-11-02 14:02 | Discharge Summary ---
Date of Service November 02, 2018 Admission HPI Per Admitting Provider Patient presented to [facility] emergency department with left flank pain 1 week after having a lithotripsy and stent placement by Dr. Tran of his left kidney. The patient reportedly his stated had been confused since the lithotripsy at home where he been falling and been unable to walk. On arrival to the ER they were concerned the patient may have sepsis although his lactic acid was 0.8. He is white count was 12 he had no anion gap bicarb 22 but his BUN/creatinine was 76 and 1.49. Patient was brought to their facility hydrated with saline at 130 cc an hour given Zosyn initially and 1 dose of Solu-Medrol in the ER because you had some tachypnea and he was given duo nebs although he has no history of tobacco use. Over the 2 days a [facility] is creatinine went from 1.49-2.37, BUN from went from 76-103, there is no notation of melena, his hemoglobin did drop from 10 g to 8 g B was hydrated. White blood cell count came down from 12-10. Reportedly there was an E. coli cultures that were positive although these were not since I can easily see and I asked him to be recent by fax. According to the after this confusion episode which occurred after the cystoscopy the patient she cannot recall having had any cranial imaging and the CT scan is currently pending Upon my interaction with the patient he is pleasant he is confused he looks to have word searching problems he can have some light conversation. He has no focal deficits no facial droop no palmar drift Discharge Data Allergies Allergy/AdvReac Type Severity Reaction Status Date / Time cyclobenzaprine AdvReac Severe disoriented Verified 10/09/18 08:15 & confused from [id number] Consultations 10/18/18 17:53 Consult Nephrology Routine 10/18/18 18:55 Consult Urology Routine 10/19/18 12:06 Consult Pulmonology Routine 10/22/18 11:35 Consult Palliative Care Routine Ordered Studies 10/18/18 18:55 US renal/blad retro comp Stat 10/18/18 19:07 CT head/brain wo con Stat 10/22/18 00:06 MR brain wo con Routine 10/22/18 05:45 US point of care ultrasound Stat 10/22/18 07:59 CT head/brain wo con Stat 10/22/18 14:48 US venous doppler LE BI Routine 10/29/18 18:27 US renal/blad retro comp Routine Hospital Course (1) Respiratory acidosis: Metabolic encephalopathy secondary to acute hypercarbic respiratory failure and/or pyelonephritis and/or acute renal failure. This patient is extremely sensitive to hypoxia being his pulmonary respiratory drive and if he is over supplemented he reduces his respiratory rate increases his carbon dioxide retention care needs to be made to maintain his oxygen saturations in and around 90% Patient has h/o sleep apnea, obesity and renal failure. 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 Patient was intubated s/p code blue, now extubated. Patient also had acute kidney failure on top of chronic kidney disease stage III metabolic encephalopathy is resolved. added lisinopril for better blood pressure control without renal distress renal function has been stable while on diuretics There is some concern the patient may have MRSA pneumonia he has been on vancomycin it is sensitive to Bactrim we will institute transition to Bactrim (2) Pyelonephritis: Patient reportedly presented with acute pyelonephritis of blood and urine cultures positive for E. coli cultures itreated with Rocephin repeat ultrasound suggests moderated left sided hydronephrosis, Urology is visited the patient does not feel any intervention is required at this time allowing recovery from pulmonary issues before considering anesthesia. Patient continues to respond to antibiotics (2/3)-> changed to bactrim 2/5 to cover ecoli and concern for staph pneumonia Patient complains of suprapubic pain 2/4, symptoms have resolved after adding Proscar and Flomax and facitlitationg bowel movements, he says this is been a long-standing problem for him (3) Acute on chronic renal failure: acute on chronic kidney disease stage 3, function has improved (4) Hydronephrosis with renal calculous obstruction: Reportedly the patient has persistent hydronephrosis without complete obstruction seen at [facility] is not planning intervention is acquired (5) Anemia: Patient's hemoglobin remains stable, but low, he will be maintained on Protonix 40 twice daily. possibly anemia of chronic disease (6) Diabetes mellitus, type 2: Patient typically takes Lantus and Trulicity for blood glucose control there is some documentation that he may have may or may not be on glyburide also. Basal bolus insulin, will need adjustment / (7) Encephalopathy: Patient has encephalopathy initially was thought to be secondary to infectious etiologies or perhaps his acidosis patient remains with significant encephalopathy when he is off his BiPAP and likely his acidosis recurs (8) DVT prophylaxis: Will have chemoprophylaxis initiated. Patient is on heparin (9) Coronary artery disease: Patient has history of coronary artery disease he has been stable on carvedilol and amlodipine aspirin and is tolerant of addition of lisinpril Discharge Plan Discharge Items Patient Disposition: Transfer Long Term Fac Reason For Visit: RENAL FAILURE BACTEREMIA Discharge Diagnosis: Acute on chronic respiratory failure with carbon dioxide retention. Discharge Goals: Decrease discomfort, Diagnostic testing and Improve disease control Activity: Resume your previous activity Non-emergency contact: Primary Care Provider and Call Or Contact Centre Team Leader Call non-emergency contact if: you have any medication questions Follow-up/Referrals: Jim Alvarez M.D. [Primary Care Provider] - Diet: Carb Consistent or DM2 and Low Sodium (2gm) Addtl Provider Instructions: Urology: Follow-Up with Dr. Tran on 11/16/18 at 9AM with voiding trial/ catheter removal to follow. Repeat CT scan scheduled for 11/05 at 1:50PM if patient status allows. discharged with [facility] tolerate oxygen sats to be 88% and above on nasal canulae insulin sliding scale BSGs ACHS if eating, q6h if npo Goal Range: Low 80mg/dL - High 180 mg/dL Correction Factor: 20 mg/dL/unit INS:CHO Ratio: 1 unit per 10 gms CHO consumed wear cpap/bipap at night and daytime naps if able Prescriptions: New quetiapine 25 mg Tablet 25 mg PO HS Qty: 30 RF: 0 sennosides [Senokot] 8.6 mg Tablet 17.2 mg PO BID Qty: 60 RF: 0 acetaminophen [Mapap (acetaminophen)] 325 mg Tablet 650 mg PO Q4H PRN (Reason: pain) Qty: 30 RF: 0 amlodipine [Norvasc] 5 mg Tablet 10 mg PO QAM Qty: 30 RF: 0 tamsulosin 0.4 mg Capsule 0.4 mg PO HS Qty: 30 RF: 0 lisinopril [Zestril] 10 mg Tablet 10 mg PO QPM Qty: 30 RF: 0 modafinil 100 mg Tablet 100 mg PO QAM Qty: 30 RF: 0 insulin aspart U-100 [Novolog Flexpen U-100 Insulin] 100 unit/mL Insulin Pen 1 units SC ACHS Qty: 15 RF: 0 insulin glargine [Lantus Solostar U-100 Insulin] 100 unit/mL (3 mL) Insulin Pen 15 unit SC HS Qty: 15 RF: 0 lidocaine 5 % Adhesive Patch,Medicated 1 patch Transdermal DAILY@2100 Qty: 10 RF: 0 allopurinol 300 mg Tablet 300 mg PO QAM Qty: 30 RF: 0 finasteride [Proscar] 5 mg Tablet 5 mg PO QAM Qty: 30 RF: 0 Continue carvedilol 25 mg Tablet 25 mg PO BID RF: 0 aspirin [Aspir-81] 81 mg Tablet,Delayed Release (Dr/Ec) 81 mg PO QAM RF: 0 Discontinued insulin glargine 100 unit/mL Solution 30 unit SUBCUT QAM RF: 0 insulin glargine 100 unit/mL Solution 26 unit SUBCUT HS RF: 0 glyburide 5 mg Tablet 5 mg PO QAM RF: 0 amlodipine 5 mg Tablet 5 mg PO QAM RF: 0 dulaglutide [Trulicity] 1.5 mg/0.5 mL Pen Injector 1 dose subcut WK RF: 0 omega 1-fuy-hya-fish oil [[place]-3] 350 mg-235 mg- 90 mg-597 mg Capsule, Delayed Release(Dr/Ec) 1 dose PO BID RF: 0 Justyna-C with Bioflavonoids 1 g PO BID RF: 0 mineral oil PO RF: 0 No Action glucosamine-chondroitin [Osteo Bi-Flex] 250-200 mg Tablet 2 tab PO BID RF: 0 Stand-Alone Forms: [facility] Discharge Orders: Discharge Order (Routine); Ordered 11/02/18 Ordered By: Dino Herring Skilled Items Patient informed of condition?: Yes DNR: Yes Discharge Level of Care: Skilled Communicable Disease: No Discharge Prognosis: Stable Admission Data Admit Date/Time: 10/18/18 17:39 Attending Provider: Dino Herring Admit Provider: Norma Higgins Primary Care Provider: Jim Alvarez Other Providers: Norma Higgins ; Jeanmarie Tran ; Cisco Blum ; Ruchi Moran ; Calvin Belle Service: Telemetry Other Pending Studies at Discharge: No
--- NOTE | 2018-11-02 14:39 | Hospitalist Progress Note ---
Date of Service November 02, 2018 Assessment & Plan (1) Respiratory acidosis: Metabolic encephalopathy secondary to acute hypercarbic respiratory failure and/or pyelonephritis and/or acute renal failure. This patient is extremely sensitive to hypoxia being his pulmonary respiratory drive and if he is over supplemented he reduces his respiratory rate increases his carbon dioxide retention care needs to be made to maintain his oxygen saturations in and around 90% Patient has h/o sleep apnea, obesity and renal failure. 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 Patient was intubated s/p code blue, now extubated. Patient also had acute kidney failure on top of chronic kidney disease stage III metabolic encephalopathy is resolved. tolerating lisinopril without renal distress renal function has been stable while on diuretics There is some concern the patient may have MRSA pneumonia he has been on vancomycin it is sensitive to Bactrim we will institute transition to Bactrim completed corse prior to discharge (2) Pyelonephritis: Patient reportedly presented with acute pyelonephritis of blood and urine cultures positive for E. coli cultures itreated with Rocephin repeat ultrasound suggests moderated left sided hydronephrosis, Urology is visited the patient does not feel any intervention is required at this time allowing recovery from pulmonary issues before considering anesthesia. Patient continues antibiotics (2/3)-> changed to bactrim 2/ to cover ecoli and concern for staph pneumonia Patient complained of suprapubic pain 2/, symptoms have resolved after adding Proscar and Flomax and facitlitationg bowel movements, he says this is been a long-standing problem for him will have follow up at urology for voiding trial (3) Acute on chronic renal failure: acute on chronic kidney disease stage 3, function has improved (4) Hydronephrosis with renal calculous obstruction: Reportedly the patient has persistent hydronephrosis without complete obstruction seen at [facility] is not planning intervention at this time (5) Anemia: Patient's hemoglobin remains stable, but low, he will be maintained on Protonix 40 twice daily. possibly anemia of chronic disease (6) Diabetes mellitus, type 2: Patient typically takes Lantus and Trulicity for blood glucose control there is some documentation that he may have may or may not be on glyburide also. Basal bolus insulin,will be discharged on the same and consider to continue to teach family and pt regarding carb counting (7) Encephalopathy: Patient had encephalopathy initially was thought to be secondary to infectious etiologies , this now seems convincing is from his carbon dioxide accumulation and has been resolved (8) DVT prophylaxis: Will have chemoprophylaxis initiated. Patient is on heparin (9) Coronary artery disease: Patient has history of coronary artery disease he has been stable on carvedilol and amlodipine aspirin and is tolerant of addition of lisinpril (10) Gout: pt is maintined on allopurinol did have two doses of colchicine with limited response given one dose of prednisone on 11/02 Subjective She continues to look better and improved he is able to ambulate short distances despite his gout of his right foot he still having some issues with bowel movements will need to escalate his cathartic agents. He remains mildly hypoxic at rest with nasal cannula but this is to be tolerated according to her pulmonary consultation Review of Systems ROS: well nourished well developed. No double vision blurry vision No problems with speech or swallowing No palpitations, chest pain or pressure No Wheezing or persistent dyspnea on exertion No abdominal pain nausea vomiting diarrhea planes of continued constipation No burning urine urine frequency or changes in color Mostly right lateral foot pain No skin rashes or oral lesions No unusual bruising or bleeding No focused back pain or numbness or loss of strength No changes in memory or confusion Physical Exam 2 Vital Signs (Past 24 Hours): Last Vital Signs Temp 36.7 C 11/02/18 11:19 Pulse 56 L 11/02/18 11:19 Resp 21 11/02/18 11:19 BP 131/53 L 11/02/18 11:19 Pulse Ox 90 11/02/18 11:19 ROS: The patient appeared well nourished and normally developed. Vital signs as documented. Head exam is unremarkable. normocephalic, atraumatic Neck is without jugular venous distension, thyromegaly, or lymphademopathy Lungs are clear to auscultation decreased excursion of the bases Cardiac exam reveals Rhythm is regular. Although is a history of A. fib first and second heart sounds normal. Abdominal exam reveals normal bowel sounds, no masses, no organomegaly no suprapubic tenderness Extremities are moderately edematous and both pedal pulses are present bilateral foot pain Neurologic exam is A&Ox3, no focal deficits, strength is equal bilateral Psychologically seems neither anxious or depressed Skin is warm Dry without bruises changes of chronic venous stasis distally
[2018-11-02] MEDS ORDERED: predniSONE 20 MG TAB PO STA (14:49)
[2018-11-02] MEDS: LIDOCAINE 5% 1 PATCH TD SCH (20:02)
[2018-11-02] MEDS: TAMSULOSIN HCL 0.4 MG CAP PO SCH (20:05)
[2018-11-02] MEDS: SENNA 8.6 MG TAB PO SCH (20:07)
[2018-11-02] MEDS: QUETIAPINE FUMARATE 25 MG TABLET PO SCH (20:08)
[2018-11-02] MEDS: LISINOPRIL 10 MG TAB PO SCH (20:09)
[2018-11-03 07:10] LABS: BUN Creatinine Ratio 21.5 (10-20); Calcium 8.4 mg/dl (8.5-10.1); Creatinine Clr Calc Pharmacy 48.8 ml/min; Est GFR (African American) 45.7; Est GFR (Non-African American) 39.5; Potassium 4.3 mmol/L (3.5-5.1)
[2018-11-03] MEDS: INSULIN ASPART 100 UNITS/ML 3 ML PEN SC SCH ×2 (07:34→11:39)
[2018-11-03] MEDS: HEPARIN SOD 5,000 UNIT/0.5 ML VIAL SQ SCH (07:35)
[2018-11-03] MEDS: AMLODIPINE BESYLATE 5 MG TAB PO SCH (07:37)
[2018-11-03] MEDS: ASPIRIN 81 MG ECTAB PO SCH (07:38)
[2018-11-03] MEDS: FINASTERIDE 5 MG TAB PO SCH (07:38)
[2018-11-03] MEDS: CARVEDILOL 25 MG TAB PO SCH (07:39)
[2018-11-03] MEDS: ALLOPURINOL 300 MG TAB PO SCH (07:39)
[2018-11-03] MEDS: SULFAMETHOXAZOLE/TRIMETHOPRIM DS 800/160MG TAB PO SCH (07:40)
[2018-11-03] MEDS: MODAFINIL 100 MG TAB PO SCH (07:44)
--- NOTE | 2018-11-03 09:13 | Discharge Summary ---
Date of Service November 03, 2018 Principal Diagnosis Acute respiratory failure, hypercarbic and hypoxic Acute renal failure Encephalopathy, multifactorial Urinary tract infection present on admission Gout Discharge Exam Constitutional well developed and average body habitus Eyes no conjunctival abnormality and no scleral abnormality Neck normal visual inspection and trachea midline Respiratory + respiratory distress, + labored breathing and + uses accessory muscles Cardiovascular Rate/Rhythm: regular rate and regular rhythm Gastrointestinal (Abdomen) normal bowel sounds, soft, nontender, no hepatosplenomegaly Musculoskeletal no cyanosis or clubbing, extremities motor strength 01/27 Discharge Data Allergies Allergy/AdvReac Type Severity Reaction Status Date / Time cyclobenzaprine AdvReac Severe disoriented Verified 10/09/18 08:15 & confused from [id number] Consultations 10/18/18 17:53 Consult Nephrology Routine 10/18/18 18:55 Consult Urology Routine 10/19/18 12:06 Consult Pulmonology Routine 10/22/18 11:35 Consult Palliative Care Routine Ordered Studies 10/18/18 18:55 US renal/blad retro comp Stat 10/18/18 19:07 CT head/brain wo con Stat 10/22/18 00:06 MR brain wo con Routine 10/22/18 05:45 US point of care ultrasound Stat 10/22/18 07:59 CT head/brain wo con Stat 10/22/18 14:48 US venous doppler LE BI Routine 10/29/18 18:27 US renal/blad retro comp Routine Hospital Course (1) Respiratory acidosis: Metabolic encephalopathy secondary to acute hypercarbic respiratory failure and/or pyelonephritis and/or acute renal failure. This patient is extremely sensitive to hypoxia being his pulmonary respiratory drive and if he is over supplemented he reduces his respiratory rate increases his carbon dioxide retention care needs to be made to maintain his oxygen saturations in and around 90% Patient has h/o sleep apnea, obesity and renal failure. 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 Patient was intubated s/p code blue, now extubated. Patient also had acute kidney failure on top of chronic kidney disease stage III metabolic encephalopathy is resolved. tolerating lisinopril without renal distress renal function has been stable while on diuretics There is some concern the patient may have MRSA pneumonia he has been on vancomycin it is sensitive to Bactrim we will institute transition to Bactrim completed corse prior to discharge (2) Pyelonephritis: Patient reportedly presented with acute pyelonephritis of blood and urine cultures positive for E. coli cultures itreated with Rocephin repeat ultrasound suggests moderated left sided hydronephrosis, Urology is visited the patient does not feel any intervention is required at this time allowing recovery from pulmonary issues before considering anesthesia. Patient continues antibiotics (10/28)-> changed to bactrim 10/30 to cover ecoli and concern for staph pneumonia Patient complained of suprapubic pain 10/29, symptoms have resolved after adding Proscar and Flomax and facitlitationg bowel movements, he says this is been a long-standing problem for him will have follow up at urology for voiding trial (3) Acute on chronic renal failure: acute on chronic kidney disease stage 3, function has improved (4) Hydronephrosis with renal calculous obstruction: Reportedly the patient has persistent hydronephrosis without complete obstruction seen at [facility] is not planning intervention at this time (5) Anemia: Patient's hemoglobin remains stable, but low, he will be maintained on Protonix 40 twice daily. possibly anemia of chronic disease (6) Diabetes mellitus, type 2: Patient typically takes Lantus and Trulicity for blood glucose control there is some documentation that he may have may or may not be on glyburide also. Basal bolus insulin,will be discharged on the same and consider to continue to teach family and pt regarding carb counting (7) Encephalopathy: Patient had encephalopathy initially was thought to be secondary to infectious etiologies , this now seems convincing is from his carbon dioxide accumulation and has been resolved (8) Coronary artery disease: Patient has history of coronary artery disease he has been stable on carvedilol and amlodipine aspirin and is tolerant of addition of lisinpril (9) Gout: pt is maintined on allopurinol did have two doses of colchicine with limited response given one dose of prednisone on 11/02 Total Time Total Time Spent Total Time Spent (In Minutes): greater than 30 minutes were required to prepare discharge Discharge Plan Discharge Items Patient Disposition: Transfer [facility] Reason For Visit: RENAL FAILURE BACTEREMIA Discharge Diagnosis: Acute on chronic respiratory failure with carbon dioxide retention. Discharge Goals: Decrease discomfort, Diagnostic testing and Improve disease control Activity: Resume your previous activity Non-emergency contact: Primary Care Provider and Land Degradation Analyst Call non-emergency contact if: you have any medication questions Follow-up/Referrals: Jim Alvarez M.D. [Primary Care Provider] - Diet: Carb Consistent or DM2 and Low Sodium (2gm) Addtl Provider Instructions: Urology: Follow-Up with Dr. Tran on 11/16/18 at 9AM with voiding trial/ catheter removal to follow. Repeat CT scan scheduled for 11/05 at 1:50PM if patient status allows. discharged with lawson tolerate oxygen sats to be 88% and above on nasal canulae insulin sliding scale BSGs ACHS if eating, q6h if npo Goal Range: Low 80mg/dL - High 180 mg/dL Correction Factor: 20 mg/dL/unit INS:CHO Ratio: 1 unit per 10 gms CHO consumed wear cpap/bipap at night and daytime naps if able please follow serum chemisty during first few weeks Prescriptions: New quetiapine 25 mg Tablet 25 mg PO HS Qty: 30 RF: 0 sennosides [Senokot] 8.6 mg Tablet 17.2 mg PO BID Qty: 60 RF: 0 acetaminophen [Mapap (acetaminophen)] 325 mg Tablet 650 mg PO Q4H PRN (Reason: pain) Qty: 30 RF: 0 amlodipine [Norvasc] 5 mg Tablet 10 mg PO QAM Qty: 30 RF: 0 tamsulosin 0.4 mg Capsule 0.4 mg PO HS Qty: 30 RF: 0 modafinil 100 mg Tablet 100 mg PO QAM Qty: 30 RF: 0 insulin aspart U-100 [Novolog Flexpen U-100 Insulin] 100 unit/mL Insulin Pen 1 units SC ACHS Qty: 15 RF: 0 insulin glargine [Lantus Solostar U-100 Insulin] 100 unit/mL (3 mL) Insulin Pen 15 unit SC HS Qty: 15 RF: 0 lidocaine 5 % Adhesive Patch,Medicated 1 patch Transdermal DAILY@2100 Qty: 10 RF: 0 allopurinol 300 mg Tablet 300 mg PO QAM Qty: 30 RF: 0 finasteride [Proscar] 5 mg Tablet 5 mg PO QAM Qty: 30 RF: 0 Continue carvedilol 25 mg Tablet 25 mg PO BID RF: 0 aspirin [Aspir-81] 81 mg Tablet,Delayed Release (Dr/Ec) 81 mg PO QAM RF: 0 Discontinued insulin glargine 100 unit/mL Solution 30 unit SUBCUT QAM RF: 0 insulin glargine 100 unit/mL Solution 26 unit SUBCUT HS RF: 0 glyburide 5 mg Tablet 5 mg PO QAM RF: 0 amlodipine 5 mg Tablet 5 mg PO QAM RF: 0 dulaglutide [Trulicity] 1.5 mg/0.5 mL Pen Injector 1 dose subcut WK RF: 0 omega [id number] oil [Mcneal-3] 350 mg-235 mg- 90 mg-597 mg Capsule, Delayed Release(Dr/Ec) 1 dose PO BID RF: 0 glucosamine-chondroitin [Osteo Bi-Flex] 250-200 mg Tablet 2 tab PO BID RF: 0 Justyna-C with Bioflavonoids 1 g PO BID RF: 0 mineral oil PO RF: 0 Stand-Alone Forms: [facility] Discharge Orders: Discharge Order (Routine); Ordered 11/03/18 Ordered By: Dino Herring Skilled Items Patient informed of condition?: Yes DNR: Yes Discharge Level of Care: Skilled Communicable Disease: No Discharge Prognosis: Stable Admission Data Admit Date/Time: 10/18/18 17:39 Attending Provider: Dino Herring Admit Provider: Norma Higgins Primary Care Provider: Jim Alvarez Other Providers: Norma Higgins ; Jeanmarie Tran ; Cisco Blum ; Ruchi Moran ; Calvin Belle Service: Telemetry Other Interventions: Discharge Summary Assessment (RN) Last Done: 11/03/18 09:35 Pending Studies at Discharge: No DC Date/Time DO NOT enter until pt leaves facility: 11/03/18 12:44
[2018-11-03 11:09] VITALS: BP 123/74; PULSE 51; TEMP 98.1; O2SAT 91
--- NOTE | 2018-11-12 07:17 | Hospitalist Progress Note ---
Date of Service November 01, 2018 Assessment & Plan (1) Respiratory acidosis: Metabolic encephalopathy secondary to acute hypercarbic respiratory failure and/or pyelonephritis and/or acute renal failure. This patient remains extremely sensitive to hypoxia being his pulmonary respiratory drive and if he is over supplemented he reduces his respiratory rate increases his carbon dioxide retention care needs to be made to maintain his oxygen saturations in and around 90% Patient has h/o sleep apnea, obesity and renal failure. 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 Patient was intubated s/p code blue, now extubated. Patient also had acute kidney failure on top of chronic kidney disease stage III metabolic encephalopathy is resolved. tolerating lisinopril without renal distress renal function has been stable while on diuretics There is some concern the patient may have MRSA pneumonia he has been on vancomycin it is sensitive to Bactrim we will institute transition to Bactrim completed corse prior to discharge (2) Pyelonephritis: Patient reportedly presented with acute pyelonephritis of blood and urine cultures positive for E. coli cultures itreated with Rocephin repeat ultrasound suggests moderated left sided hydronephrosis, Urology is visited the patient does not feel any intervention is required at this time allowing recovery from pulmonary issues before considering anesthesia. Patient continues antibiotics (2/3)-> changed to bactrim 2/ to cover ecoli and concern for staph pneumonia Patient complained of suprapubic pain 2/, symptoms have resolved after adding Proscar and Flomax and facilitating bowel movements, he says this is been a long -standing problem for him will have follow up at urology for voiding trial in October (3) Acute on chronic renal failure: acute on chronic kidney disease stage 3,stable (4) Hydronephrosis with renal calculous obstruction: Reportedly the patient has persistent hydronephrosis without complete obstruction seen at [facility] is not planning intervention at this time (5) Anemia: Patient's hemoglobin remains stable, but low, he will be maintained on Protonix 40 twice daily. possibly anemia of chronic disease (6) Diabetes mellitus, type 2: Patient typically takes Lantus and Trulicity for blood glucose control there is some documentation that he may have may or may not be on glyburide also. Basal bolus insulin,with good control and education regarding carb counting and diet (7) Encephalopathy: Patient had encephalopathy initially was thought to be secondary to infectious etiologies , this now seems convincing is from his carbon dioxide accumulation and has been resolved (8) Coronary artery disease: Patient has history of coronary artery disease he has been stable on carvedilol and amlodipine aspirin and is tolerant of addition of lisinpril (9) Gout: pt is maintined on allopurinol did have two doses of colchicine with limited response given one dose of prednisone on 11/02 Subjective He continues to complain about gout of his right foot but is improved from one day ago, he still having constipation. He remains mildly hypoxic at rest with nasal cannula but this is to be tolerated according to her pulmonary consultation Constitutional: + fatigue and + weakness Respiratory: + dyspnea and + stopping breathing during sleep Cardiovascular: + dyspnea on exertion; no chest pain and no chest pain at rest Gastrointestinal: + constipation; no abdominal pain Integumentary: + dry skin and + change in skin color Psychiatric: no depression, no hopelessness and no anhedonia Physical Exam 2 Vital Signs (Past 24 Hours): Last Vital Signs Temp 36.7 C 11/03/18 11:07 Pulse 51 L 11/03/18 11:07 Resp 16 11/03/18 11:07 BP 123/74 11/03/18 11:07 Pulse Ox 91 11/03/18 11:07 Constitutional: well developed and average body habitus Eyes: no conjunctival abnormality and no scleral abnormality Neck: normal visual inspection and trachea midline Respiratory: + respiratory distress, + labored breathing and + uses accessory muscles Cardiovascular: RRR, no murmur, no edema Rate/Rhythm: regular rate and regular rhythm Gastrointestinal (Abdomen): normal bowel sounds, soft, nontender, no hepatosplenomegaly Musculoskeletal: no cyanosis or clubbing, extremities motor strength 5/5
== END 2018-11-03 12:44 | DRG 208 ==
LOC: SUATTDRO 17:39 → 2E 17:39 → 1E 10-22 05:31 → 2E 10-23 17:13
DX: Z68.42 Body mass index [BMI] 45.0-49.9, adult; Z79.4 Long term (current) use of insulin; Z91.81 History of falling; J96.01 Acute respiratory failure with hypoxia; Z66 Do not resuscitate; J96.22 Acute and chronic respiratory failure with hypercapnia; R29.6 Repeated falls; M10.9 Gout, unspecified; E66.2 Morbid (severe) obesity with alveolar hypoventilation; E11.22 Type 2 diabetes mellitus with diabetic chronic kidney disease; I25.10 Atherosclerotic heart disease of native coronary artery without angina pectoris; D64.9 Anemia, unspecified; N13.2 Hydronephrosis with renal and ureteral calculous obstruction; I12.9 Hypertensive chronic kidney disease with stage 1 through stage 4 chronic kidney disease, or unspecified chronic kidney disease; Z79.82 Long term (current) use of aspirin; Z91.19 Patient's noncompliance with other medical treatment and regimen; I46.9 Cardiac arrest, cause unspecified; N18.3 Chronic kidney disease, stage 3 (moderate); N12 Tubulo-interstitial nephritis, not specified as acute or chronic; N17.0 Acute kidney failure with tubular necrosis; R53.1 Weakness; M79.89 Other specified soft tissue disorders; Z79.899 Other long term (current) drug therapy; I48.91 Unspecified atrial fibrillation; G93.41 Metabolic encephalopathy

== ENCOUNTER 2020-04-08 12:48 | Observation (INO) ==
--- NOTE | 2020-03-24 12:11 | PAT Medication Instructions ---
Medication Instructions Date of Service March 24, 2020 Home Medications Medication Instructions Recorded allopurinol 300 mg PO QAM #30 tab 11/02/18 finasteride [Proscar] 5 mg PO QAM #30 tab 11/02/18 tamsulosin 0.4 mg PO HS #30 cap 11/02/18 aspirin [Aspir-81] 81 mg PO QAM carvedilol 25 mg PO BID allopurinol 300 mg PO QAM finasteride [Proscar] 5 mg PO QAM tamsulosin 0.4 mg PO HS docusate sodium 100 mg capsule 100 mg PO TID semaglutide 1 mg/dose (2 mg/1.5 mL) subcutaneous pen injector 1 mg SQ WK fenofibrate nanocrystallized 145 mg PO QAM rosuvastatin 20 mg PO HS tramadol 50 mg PO TID canagliflozin [Invokana] 100 mg PO QAM insulin degludec [Tresiba U-100 Insulin] 26 unit SUBCUT HS Continue as directed semaglutide 1 mg/dose (2 mg/1.5 mL) subcutaneous pen injector 1 mg SQ WK ASK your surgeon for instructions aspirin [Aspir-81] 81 mg PO QAM STOP taking 48 hours before surgery fenofibrate nanocrystallized 145 mg PO QAM DO NOT take the morning of surgery docusate sodium 100 mg capsule 100 mg PO TID canagliflozin [Invokana] 100 mg PO QAM Take morning of surgery With a small sip of water, OTHERWISE NOTHING TO EAT OR DRINK AFTER MIDNIGHT: carvedilol 25 mg PO BID allopurinol 300 mg PO QAM finasteride [Proscar] 5 mg PO QAM tramadol 50 mg PO TID (if needed, may be taken up to four hours before surgery) Take evening before surgery carvedilol 25 mg PO BID tamsulosin 0.4 mg PO HS docusate sodium 100 mg capsule 100 mg PO TID rosuvastatin 20 mg PO HS tramadol 50 mg PO TID insulin degludec [Tresiba U-100 Insulin] 26 unit SUBCUT HS Other Notes If you have any questions please call us at [phone] or [phone] or [phone] or [phone]
--- NOTE | 2020-03-24 12:23 | Anesthesiology Consultation ---
Date of Service March 24, 2020 Assessment & Plan (1) Encounter for pre-operative examination: COVID Status: As of 03/24 assessment, patient denies travel to endemic area, known exposure/sick contacts, or symptoms of COVID19. Patient instructed to follow strict social distancing guidelines, wear a mask in public and avoid travel for 14 days prior to surgery. Preoperative COVID19 testing to be completed prior to surgery. Patient made aware to self-isolate as much as possible between COVID testing and surgery. PCP Clearance 03/23/20 = "patient is medically cleared for surgery with moderate risk. His risk factors include diabetes hypertension CAD and obesity with limited ambulation, sleep apnea and previous history of respiratory failure after surgery related to kidney stone. At present time he is medically optimized and does not need any further cardiac work-up. No contraindication for surgery. I would suggest the use of BiPAP postoperative to prevent respiratory complications." *H/O difficult intubation -- L2-S1 fusion 06/19/2014 - "poor visualization with MAC 4. Glidescope #4 utilized. Lg tongue with much soft tissue." BSG AM DOS Chart Review Chart Review: Acceptable Risk for Surgery and Patient seen in Pre Admission Testing Teaching & Discussion Instructed NPO after midnight before surgery, except medications with 15 cc of water. Medication instructions provided according to the PAT guidelines. History Surgery Operation Date: 04/08/20 14:55 Proposed Procedures p Right Sacroiliac Joint Fusion - Bertin Cunningham, Height/Weight Height: 5 ft 7 in Weight: 112.3 kg Allergies Allergy/AdvReac Type Severity Reaction Status Date / Time cyclobenzaprine AdvReac Severe disoriented Verified 03/20/20 11:34 & confused from [id number] Medications Home Medications Medication Instructions Recorded Confirmed Last Taken aspirin [Aspir-81] 81 mg PO QAM 06/11/18 03/20/20 05/21/19 carvedilol 25 mg PO BID 06/11/18 03/20/20 05/21/19 allopurinol 300 mg PO QAM #30 tab 11/02/18 03/20/20 05/21/19 finasteride [Proscar] 5 mg PO QAM #30 tab 11/02/18 03/20/20 05/21/19 tamsulosin 0.4 mg PO HS #30 cap 11/02/18 03/20/2019 docusate sodium 100 mg capsule 100 mg PO TID 01/10/19 03/20/20 Unknown semaglutide 1 mg/dose (2 mg/1.5 1 mg SQ WK ml 01/10/19 03/20/20 05/21/19 mL) subcutaneous pen injector fenofibrate nanocrystallized 145 mg PO QAM 05/22/19 03/20/20 05/21/19 rosuvastatin 20 mg PO HS 05/22/19 03/20/20 05/21/19 tramadol 50 mg PO TID 05/22/19 03/20/20 05/22/19 canagliflozin [Invokana] 100 mg PO QAM 03/20/20 03/20/20 Unknown insulin degludec [Tresiba U-100 26 unit SUBCUT HS 03/20/20 03/20/20 Unknown Insulin] Past Medical History Medical History (Updated 03/27/20 @ 10:49 by Walter Manjarrez) Anemia CHRONIC; BASELINE HGB 9-10 RANGE PER CHART REVIEW Carotid artery stenosis S/P LEFT CEA (2006) CKD (chronic kidney disease) Coronary artery disease CABG x 2 (2006) Diabetes mellitus, type 2 IDDM Dyslipidemia Gout History of atrial fibrillation S/P RADIOFREQUENCY ABLATION (2011) History of blood transfusion POST-OP 2018 History of difficult intubation L2-S1 fusion 06/19/2014 - "poor visualization with MAC 4. Glidescope #4 utilized. Lg tongue with much soft tissue." History of kidney stones Hx of atrial flutter 4:1 AV CONDUCTION, S/P CARDIOVERSION X 2 AND EVENTUAL SUCCESSFUL RFA 2011. Hx of sleep apnea NO DEVICE ("REFUSES CPAP") uses oxygen 2 l/nc at hs Hypertension Morbid obesity Osteoarthritis Prostate cancer (Chronic 01/26/17) radiation - 2017 Spinal stenosis Exercise / Class Metabolic Activity II 4-5 Yardwork/Stairs/Walk up hill (Does 13 steps at home regularly, limited by back pain, denies CP or SOB but moves slowly) Past Family History Family History Grandmother Diabetes Other Alzheimer disease Prostate cancer Past Surgical History Surgical History (Updated 03/27/20 @ 10:49 by Walter Manjarrez) H/O cardiac radiofrequency ablation atrial flutter converted to NSR History of cystoscopy WITH STENT= 08/06/18= MAC SEDATION AT [facility] History of lumbar fusion History of open reduction and internal fixation (ORIF) procedure BILAT ANKLE - 1960'S S/P CABG x 2 (2006)- FRANCO-LAD; LAD-D1 SUB BRANCH S/P carotid endarterectomy LEFT (2006) Past Anesthesia History Difficult Airway (with 2014 lumbar surgery) and No Family Hx of Anesthesia Complications History of PONV No Hx of PONV and No Hx of Motion Sickness Social History Smoking Status: Never smoker Do You Dip or Chew Tobacco: No Hx Alcohol Use: No Hx Substance Use: No substance use type: does not use Review of Systems Pt denies any recent chest pain, shortness of breath, palpitations, cough, fever or URI. Physical Exam Vital Signs BP: 142/83 P: 73bpm SPO2: 94% RA T: 98.6 F R: 16 Constitutional + obese ENMT Mouth: + macroglossia; no dental restorations, no chipped teeth and no loose teeth Thyromental Distance: > or= 3.5 Finger Breadths (4) Mallampati Class: II Neck + thick neck; neck extension not limited Respiratory normal respiratory effort Auscultation: lungs clear to auscultation bilaterally Cardiovascular Rate/Rhythm: regular rate and regular rhythm Heart Sounds: no murmur Distant heart sounds Testing Laboratory Results PT 10.4 Seconds (9.0-12.0) 03/24/20 12:34 INR 1.0 (0.9-1.1) 03/24/20 12:34 APTT 25.5 Seconds (21.0-31.0) 03/24/20 12:34 Blood Type A Positive 03/24/20 12:34 Antibody Screen NEGATIVE 03/24/20 12:34 03/18/20 WBC: 5.8 H/H: 12.4/37.4 PLATELETS: 286 SODIUM: 137 POTASSIUM: 4.4 CHLORIDE: 100 CO2: 27 BUN: 40 CREATININE: 1.48 GLUCOSE: 132 Electrocardiogram Date: 03/23/20 Findings: + NSR @ (73bpm) RBBB. Chest X-Ray Date: 03/24/20 Findings: + NAD Mild cardiomegaly. Echocardiogram Date: 10/22/18 LV Function: normal RWMA: + none
--- NOTE | 2020-03-24 13:06 | XRay Report ---
XR chest Pre-admission PA/Lat CLINICAL HISTORY: PAT COMPARISON STUDY: 10/28/2017 FINDINGS: Mild stable cardiomegaly. Prior median sternotomy. Lungs are clear. Diaphragms are smooth. IMPRESSION: Mild cardiomegaly. Otherwise negative study. ACT 112: Negative or not required by law. The above report was generated using voice recognition software. It may contain grammatical, syntax or spelling errors. Electronically signed by: Jimmy Saab M.D. 03/24/2020 1:05 PM
[2020-03-24 13:13] LABS: Partial Thromboplastin Ratio 0.9; Partial Thromboplastin Time 25.5 Seconds (21.0-31.0); Prothrombin Time 10.4 Seconds (9.0-12.0)
[~2020-04-08 12:48] MED LIST changes: +ACETAMINOPHEN 500 MG TAB PO SCH; -ASCA500 PO; -ASPI-461 PO; -BUPR20DI TOP; +CEFAZOLIN 2000MG 2,000 MG/15 ML SYR IV SCH; -CRG25 PO; +CeleBREX 200 MG CAP PO SCH; -DULA0.5I SC; -GABA-113 PO; +GABAPENTIN 300 MG CAP PO SCH; -GLYB5TAB8 PO; -INSDGI SC; +LR 15ML/HR IV SCH; -MISCTAB78 PO; -MULT1CHW18 PO; -NRV/5 PO; -OMEGCAP2 PO
[2020-04-08] MEDS ORDERED: ePHEDrine sulfate 50 MG/ML AMP IV PRN (14:32)
[2020-04-08] MEDS ORDERED: fentaNYL citrate 100 MCG/2 ML VIAL IV PRN (14:32)
[2020-04-08] MEDS ORDERED: ATROPINE SULFATE 0.1 MG/ML 10ML SYR IV PRN (14:32)
[2020-04-08] MEDS ORDERED: HYDROmorphone INJ 1 MG/ML SYRINGE IV PRN ×2 (14:32→19:17)
[2020-04-08] MEDS ORDERED: ONDANSETRON INJ 2 MG/ML 2 ML VIAL IV PRN ×2 (14:32→19:17)
--- NOTE | 2020-04-08 15:47 | History & Physical Bridge Note ---
Date of Service April 08, 2020 History & Physical Bridge Note I have examined the patient, reviewed the History & Physical and in the interval since the performance of the History & Physical I have noted the following changes of clinical significance: no changes noted
--- NOTE | 2020-04-08 15:48 | History & Physical Report ---
Date of Service April 08, 2020 Assessment & Plan (1) Sacroiliitis: Right sacroiliac joint fusion Present on Admission?: Yes History of Present Illness Chief Complaint: Right sacroiliitis Primary Care Provider: Jim Alvarez M.D. This is a 80-year-old male who presents with significant sacroiliitis causing it marked limitations and quality of life and is here for surgical invention. Allergies Allergy/AdvReac Type Severity Reaction Status Date / Time cyclobenzaprine AdvReac Severe disoriented Verified 04/08/20 13:20 & confused from [id number] Home Medications Home Medications Medication Instructions Recorded Confirmed Type aspirin [Aspir-81] 81 mg PO QAM 06/11/18 04/08/20 History carvedilol 25 mg PO BID 06/11/18 04/08/20 History allopurinol 300 mg PO QAM #30 tab 11/02/18 04/08/20 Rx finasteride [Proscar] 5 mg PO QAM #30 tab 11/02/18 04/08/20 Rx tamsulosin 0.4 mg PO HS #30 cap 11/02/18 04/08/20 Rx docusate sodium 100 mg capsule 100 mg PO TID 01/10/19 04/08/20 History semaglutide 1 mg/dose (2 mg/1.5 1 mg SQ WK ml 01/10/19 04/08/20 History mL) subcutaneous pen injector fenofibrate nanocrystallized 145 mg PO QAM 05/22/19 04/08/20 History rosuvastatin 20 mg PO HS 05/22/19 04/08/20 History canagliflozin [Invokana] 100 mg PO QAM 03/20/20 04/08/20 History insulin degludec [Tresiba U-100 26 unit SUBCUT HS 03/20/20 04/08/20 History Insulin] hydrocodone-acetaminophen 1 tab PO Q6H PRN 04/07/20 04/08/20 History naloxegol [Movantik] 25 mg PO QAM 04/07/20 04/08/20 History Past Med/Surg History Family History Grandmother Diabetes Other Alzheimer disease Prostate cancer Social History Preferred Language: [place]an Communication Ability: Effective Visual Impairment: No Limitations Machine Brush Maker Required: No Beliefs That Will Affect Care: None Current Living Situation: Spouse Current Living Situation Comment: CURRENTLY AT [facility] OP BACK FUSION 08/02/18 TILL 08/24/18 Other Information That Helps Us Care for You: No Feels Safe at Home: Yes Safety Concerns: Feels Safe At This Time Smoking Status: Never smoker Do You Dip or Chew Tobacco: No ; Second Hand Exposure: No ; Tobacco Cessation Education Requested by Patient: No Hx Alcohol Use: No Hx Substance Use: No Physical Exam Physical Exam: Patient is alert and oriented neurologically intact Heart regular rate and rhythm Lungs clear to auscultation Results & Data Vital Signs (Past 12 Hours) Vital Signs Temp Pulse Resp BP Pulse Ox 04/08/20 13:22 36.8 C 71 18 179/89 H 99
[2020-04-08] MEDS ORDERED: PROPOFOL IV EMULSION 10 MG/ML 20 ML VIAL IV ONE (16:07)
[2020-04-08] MEDS ORDERED: ONDANSETRON INJ 2 MG/ML 2 ML VIAL ONE (16:07)
[2020-04-08] MEDS ORDERED: SUCCINYLCHOLINE CHLORIDE 20 MG/ML 10 ML VIAL IV ONE (16:07)
[2020-04-08] MEDS ORDERED: LIDOCAINE HCL 2% 2 ML VIAL/AMP(20MG/ML) INFIL ONE (16:07)
[2020-04-08] MEDS ORDERED: fentaNYL citrate 100 MCG/2 ML VIAL ONE (16:08)
[2020-04-08] MEDS ORDERED: BACITRACIN INJ 50,000 UNIT VIAL ONE (16:18)
[2020-04-08] MEDS ORDERED: BUPIVACAINE/EPINEPHRINE 0.25% 1:200,000 30 ML VIAL ONE (16:18)
[2020-04-08] MEDS ORDERED: FLOSEAL HEMOSTATIC MATRIX 10ML TOP ONE (17:05)
--- NOTE | 2020-04-08 17:31 | Operative Report ---
Post Operative Report Pre & Post Diagnosis Operation Date: 04/08/20 14:35 Pre-Op Diagnosis: Sacroiliac Joint Dysfunction Post-Op Diagnosis: Sacroiliac Joint Dysfunction I identified the patient and participated in the time-out.: Yes Procedure Operation Date: 04/08/20 14:35 Actual Procedures 1. Open fusion right SI joint. #2 placement of 25 mm allograft filled with infuse collagen sponge within the right SI joint. #3 placement of 2 globus SI joint bolts filled with infuse collagen sponge and local autograft across the right SI joint. Surgeon Bertin Cunningham, DO Lapping Machine Operator None Estimated Blood Loss 10 Findings Consistent with Post-Op Diagnosis Specimens None Indications This is a 80-year-old male that presents with significant SI joint function. After failing extensive course of nonoperative care is here for surgical invention. Description of Procedure Patient was met with identified informed consent obtained. Patient was then taken to the operative suite underwent intubation placed in a prone position on the Son table chest padded bolsters. All bony prominences well-padded eyes inspected to ensure no external pressure placed upon them. This point the right upper buttock was prepped and draped in normal sterile fashion. With the assistance of fluoroscopy identified the right SI joint approximately 3 cm incision was created overlying the joint. Sharp dissection performed down to the joint and then I placed a joint finder and trocar within the joint. I then curetted out the joint removing all cartilaginous tissue and placed a 25 mm allograft filled with infuse collagen sponge within the joint. After this was packed into place the trocar was removed and I placed a second incision along the right upper buttock in line with the posterior sacral slope. I then placed a guidewire in the proximal portion of the sacrum. I assessed its position and inlet outlet and lateral views. Once I was satisfied I used trochars to dilate and drilled across the SI joint. Then I placed a 50 mm CLAYTON-coated slotted screw filled local autograft and infuse collagen sponge across the SI joint. The second screw was also placed in a similar fashion. The screw was 40 mm in length CLAYTON-coated slotted and filled with infuse collagen sponge and local autograft. Both screws demonstrated excellent purchase and alignment. The incisions were then copiously irrigated closed with subcutaneous Vicryl and 4 Monocryl for final skin closure. Steri-Strip sterile dressings placed. Patient will continue PACU stable condition. I attest to the content of the Intraoperative Record and any orders documented therein. Any exceptions are noted below.
--- NOTE | 2020-04-08 17:35 | Fluoroscopy Report ---
FL sacrum CLINICAL HISTORY: RT SIJ FUSIONsacral fusion COMPARISON STUDY: None FLUOROSCOPY TIME: 1 minute 12 seconds NUMBER OF FLUOROSCOPIC IMAGES: 3 FINDINGS: Image intensifier support for a right sacral fusion. IMPRESSION: Image intensifier support for right sacral fusion. ACT 112: Negative or not required by law. The above report was generated using voice recognition software. It may contain grammatical, syntax or spelling errors. Electronically signed by: Jimmy Saab M.D. 04/08/2020 5:33 PM
[2020-04-08] MEDS ORDERED: LABETALOL HCL IV 5 MG/ML 20ML IV STA (18:37)
[2020-04-08] MEDS ORDERED: LABETALOL HCL IV 5 MG/ML 20ML IV ONE (18:37)
--- NOTE | 2020-04-08 18:38 | Anesthesiology Progress Note ---
Date of Service April 08, 2020 Anesthesia Post Procedure Vital Signs Vital Signs: Temp Pulse Resp BP BP Pulse Ox 04/08/20 18:25 70 14 179/91 H 98 04/08/20 18:15 70 12 169/88 H 96 04/08/20 18:05 70 16 172/93 H 98 04/08/20 18:00 171/90 H 04/08/20 17:55 72 14 181/91 H 100 04/08/20 17:47 36.0 C L 73 14 168/96 H 100 04/08/20 13:22 36.8 C 71 18 179/89 H 99 Transfer of Care Handoff Completed per policy Notes Mental Status: alert / awake / arousable and participated in evaluation Patient Amnestic to Procedure: Yes Nausea / Vomiting: adequately controlled Pain: adequately controlled Airway Patency, RR, SpO2: stable & adequate BP & HR: stable & adequate Hydration State: stable & adequate Anesthetic Complications: no major complications apparent and Pt Satisfied with anesthetic care
[2020-04-08] MEDS ORDERED: LORazepam 0.5 MG/1 ML VIAL IV PRN (19:17)
[2020-04-08] MEDS ORDERED: HYDROCODONE/ACETAMOPHEN 5/325MG TAB PO PRN (19:17)
[2020-04-08] MEDS ORDERED: NALOXONE HCL 0.4 MG/1 ML VIAL/CARP IV PRN (19:17)
[2020-04-08] MEDS ORDERED: SOD PHOSPHATE/SOD BIPHOSPHATE ENEMA 132 ML BTL PR PRN (19:17)
[2020-04-08] MEDS ORDERED: DO NOT ADMINISTER FLU VACCINE PRN (19:17)
[2020-04-08] MEDS ORDERED: DO NOT ADMINISTER PNEUMOCOCCAL VACCINE PRN (19:17)
[2020-04-08] MEDS ORDERED: METOCLOPRAMIDE HCL INJ 5 MG/ML 2 ML VIAL IV PRN (19:17)
[2020-04-08] MEDS ORDERED: ALUMINUM/MAGNESIUM SUSP 30 ML UDC PO PRN (19:17)
[2020-04-08] MEDS ORDERED: MAGNESIUM HYDROXIDE SUSP 30 ML UDC PO PRN (19:17)
[2020-04-08] MEDS ORDERED: FAMOTIDINE 20 MG TAB PO PRN (19:17)
[2020-04-08] MEDS ORDERED: PROMETHAZINE HCL 12.5 MG in SODIUM CHLORIDE 0.9% 50 ML IV PRN (19:17)
[2020-04-08] MEDS ORDERED: ONDANSETRON 4 MG OD TAB PO PRN (19:17)
[2020-04-08] MEDS ORDERED: ACETAMINOPHEN 500 MG TAB PO PRN (19:17)
[2020-04-08] MEDS ORDERED: bisacodyL 10 MG SUPP PR PRN (19:17)
[2020-04-08] MEDS ORDERED: ACETAMINOPHEN 1,000 MG/100 ML VIAL IV PRN (19:17)
[2020-04-08] MEDS ORDERED: LORazepam 0.5 MG TAB PO PRN (19:17)
[2020-04-08] MEDS ORDERED: HYDROmorphone INJ 0.5 MG/0.5 ML SYR IV PRN (19:17)
[2020-04-08] MEDS ORDERED: PHARMACY GLYCEMIC MGMT CONSULT PRN (20:23)
[2020-04-08] MEDS ORDERED: Nursing to Pharmacy Communication SCH (20:30)
[2020-04-08] MEDS: SODIUM CHLORIDE 0.9% 1000ML 1,000 ML IV SCH (20:31)
[2020-04-08] MEDS ORDERED: CARBOHYDRATES FOR HYPOGLYCEMIA PO PRN (20:45)
[2020-04-08] MEDS ORDERED: GLUCAGON FOR INJ 1 MG VIAL IM PRN (20:45)
[2020-04-08] MEDS ORDERED: GLUCOSE 10 TABS/TUBE PO PRN (20:45)
[2020-04-08] MEDS ORDERED: GLUCOSE 40% GEL 15 GM TUBE PO PRN (20:45)
[2020-04-08] MEDS ORDERED: DEXTROSE 50% 50 ML SYRINGE IV PRN (20:45)
[2020-04-08] MEDS: carvediloL 25 MG TAB PO SCH (20:46)
[2020-04-08] MEDS: DOCUSATE SODIUM 100 MG CAP PO SCH (20:46)
[2020-04-08] MEDS ORDERED: DOCUSATE SODIUM/SENNA 50/8.6MG TAB PO SCH (21:00)
[2020-04-08] MEDS ORDERED: TAMSULOSIN HCL 0.4 MG CAP PO SCH (21:00)
[2020-04-08] MEDS ORDERED: ROSUVASTATIN CALCIUM 20 MG TAB PO SCH (21:00)
[2020-04-08] MEDS: INSULIN ASPART 100 UNITS/ML 3 ML PEN SC SCH (21:56)
[2020-04-09] MEDS: CEFAZOLIN 2000MG 2,000 MG/15 ML SYR IV SCH ×2 (00:12→09:10)
[2020-04-09 03:15] VITALS: O2SAT 95
[2020-04-09] MEDS: SODIUM CHLORIDE 0.9% 1000ML 1,000 ML IV SCH (03:57)
[2020-04-09] MEDS ORDERED: POLYETHYLENE (MIRALAX) 17 GM PACK PO SCH (06:00)
[2020-04-09 07:37] VITALS: TEMP 98.4
--- NOTE | 2020-04-09 08:19 | Discharge Summary ---
Date of Service April 09, 2020 Admission HPI Per Admitting Provider This is a 80-year-old male who presents with significant sacroiliitis causing it marked limitations and quality of life and is here for surgical invention. Principal Diagnosis Sacroiliitis Discharge Data Allergies Allergy/AdvReac Type Severity Reaction Status Date / Time cyclobenzaprine AdvReac Severe disoriented Verified 04/08/20 13:20 & confused from [id number] Consultations 04/08/20 21:46 Consult Hospitalist Routine Procedures Performed Operation Date: 04/08/20 14:35 Actual Procedures p Right Sacroiliac Joint Fusion, Application of Bone Morphogenetic Protein (Right) - Bertin Cnuningham DO Ordered Studies 04/08/20 14:35 FL fluoroscopy <1hr Routine FL sacrum Routine Hospital Course (1) Sacroiliitis: Patient underwent right SI joint fusion tolerated this well was taken to orthopedic for possibly. Postop day 1 he was ambulating with a walker. Excellent strength testing. Pain well controlled. Subsequently discharged home. Discharge orders and instructions from the chart for further review. Total Time Total Time Spent Total Time Spent (In Minutes): 20 minutes Discharge Plan Discharge Items Patient Disposition: Home - Self-Care Reason For Visit: SI Joint Dysfunction Discharge Diagnosis: SI joint pain Activity: Per Instructions section Lifting: No more than 5 pounds Bathing: May shower/bathe in 3 days Weightbearing: Right toe touch Non-emergency contact: Primary Care Provider Call non-emergency contact if: you have any medication questions Follow-up/Referrals: Jim Alvarez M.D. [Primary Care Provider] - Diet: Regular Addtl Attending Provider Instructions: Patient is to ambulate with a walker with toe-touch weightbearing to the right lower extremity. Follow-up as scheduled in 2 weeks. Pending Studies at Discharge: No Stand-Alone Forms: [email or web address], Smoking Cessation Medications and DC Order Prescriptions: New hydrocodone-acetaminophen 5-325 mg tablet See Rx Instructions .ROUTE .COMPLEX PRN (Reason: pain) Qty: 15 RF: 0 Continued Ozempic 1 mg/dose (2 mg/1.5 mL) pen injector 1 mg SQ WK RF: 0 docusate sodium [Colace] 100 mg capsule 100 mg PO TID RF: 0 Invokana 100 mg Tablet 100 mg PO QAM RF: 0 Tresiba U-100 Insulin 100 unit/mL Solution 26 unit SUBCUT HS RF: 0 hydrocodone-acetaminophen 10-325 mg Tablet 1 tab PO Q6H PRN (Reason: Pain) RF: 0 Movantik 25 mg Tablet 25 mg PO QAM RF: 0 carvedilol 25 mg Tablet 25 mg PO BID RF: 0 aspirin [Aspir-81] 81 mg Tablet,Delayed Release (Dr/Ec) 81 mg PO QAM RF: 0 tamsulosin 0.4 mg Capsule 0.4 mg PO HS Qty: 30 RF: 0 allopurinol 300 mg Tablet 300 mg PO QAM Qty: 30 RF: 0 finasteride [Proscar] 5 mg Tablet 5 mg PO QAM Qty: 30 RF: 0 rosuvastatin 20 mg tablet 20 mg PO HS RF: 0 fenofibrate nanocrystallized 145 mg tablet 145 mg PO QAM RF: 0 Discharge Orders: Discharge Order (Routine); Ordered 04/09/20 Ordered By: Bertin Cunningham Admission Data Admit Date/Time: 04/08/20 17:53 Attending Provider: Bertin Cunningham Admit Provider: Bertin Cunningham Primary Care Provider: Jim Alvarez Other Providers: Norma Higgins
--- NOTE | 2020-04-09 08:29 | Anesthesiology Progress Note ---
Date of Service April 09, 2020 Anesthesia Post Procedure Vital Signs Vital Signs: Temp Pulse Resp BP BP Pulse Ox 04/09/20 07:37 36.9 C 77 16 155/72 H 95 04/09/20 03:15 36.6 C 83 18 138/80 95 04/08/20 23:13 36.8 C 82 16 159/88 H 93 04/08/20 22:18 36.5 C 79 16 167/84 H 92 04/08/20 21:15 36.5 C 77 16 169/79 H 93 04/08/20 20:30 36.5 C 04/08/20 20:19 36.0 C L 75 17 130/75 92 04/08/20 19:40 36.6 C 76 16 151/70 H 91 04/08/20 19:10 36.5 C 68 16 175/86 H 96 04/08/20 18:55 72 16 160/90 H 98 04/08/20 18:45 68 12 179/91 H 95 04/08/20 18:35 70 14 183/93 H 96 04/08/20 18:25 70 14 179/91 H 98 04/08/20 18:15 70 12 169/88 H 96 04/08/20 18:05 70 16 172/93 H 98 04/08/20 18:00 171/90 H 04/08/20 17:55 72 14 181/91 H 100 04/08/20 17:47 36.0 C L 73 14 168/96 H 100 04/08/20 13:22 36.8 C 71 18 179/89 H 99 Notes Mental Status: alert / awake / arousable Patient Amnestic to Procedure: Yes Nausea / Vomiting: adequately controlled Pain: adequately controlled Airway Patency, RR, SpO2: stable & adequate BP & HR: stable & adequate Hydration State: stable & adequate Anesthetic Complications: no major complications apparent and Pt Satisfied with anesthetic care
[2020-04-09] MEDS ORDERED: ASPIRIN 81 MG ECTAB PO SCH (09:00)
[2020-04-09] MEDS ORDERED: FENOFIBRATE NANOCRYSTALLIZED 145 MG TABLET PO SCH (09:00)
[2020-04-09] MEDS ORDERED: FINASTERIDE 5 MG TAB PO SCH (09:00)
[2020-04-09] MEDS ORDERED: allopurinoL 300 MG TAB PO SCH (09:00)
[2020-04-09] MEDS: DOCUSATE SODIUM 100 MG CAP PO SCH (09:11)
[2020-04-09 09:14] VITALS: BP 147/74; PULSE 80
[2020-04-09] MEDS: carvediloL 25 MG TAB PO SCH (09:14)
[2020-04-09] MEDS: INSULIN ASPART 100 UNITS/ML 3 ML PEN SC SCH ×2 (09:22→12:33)
== END 2020-04-09 13:27 | disposition home or self-care (01) ==
LOC: ASU 12:48 → 3E 17:53 → INTOOBSV 17:53

== ENCOUNTER 2022-03-01 05:42 | Observation (INO) ==
--- NOTE | 2022-02-23 14:10 | PAT Medication Instructions ---
Medication Instructions Date of Service February 23, 2022 Home Medications Medication Instructions Recorded allopurinol 300 mg tablet 300 mg PO QAM #30 tab 11/02/18 tamsulosin 0.4 mg capsule 0.4 mg PO HS #90 cap 06/10/20 aspirin 81 mg tablet,delayed release (Aspir-) 81 mg PO QAM carvedilol 25 mg tablet 25 mg PO BID allopurinol 300 mg tablet 300 mg PO QAM docusate sodium 100 mg capsule (Colace) 100 mg PO BID semaglutide 1 mg/dose (2 mg/1.5 mL) subcutaneous pen injector (Ozempic) 1 mg SQ WK fenofibrate nanocrystallized 145 mg tablet 145 mg PO QPM rosuvastatin 20 mg tablet 20 mg PO HS tamsulosin 0.4 mg capsule 0.4 mg PO HS acetaminophen 325 mg tablet (Tylenol) 1,300 mg PO QID PRN canagliflozin 100 mg tablet (Invokana) 100 mg PO QAM finasteride 5 mg tablet 5 mg PO QAM insulin degludec 100 unit/mL subcutaneous solution (Tresiba U-100 Insulin) 30 unit SUBCUT HS linaclotide 145 mcg capsule (Linzess) 145 mcg PO HS mineral oil 30 ml PO QPM multivitamin 1 tab PO QAM psyllium husk 3.4 gram/5.4 gram oral powder (Metamucil) 1 tbsp PO QAM Continue as directed semaglutide 1 mg/dose (2 mg/1.5 mL) subcutaneous pen injector (Ozempic) 1 mg SQ WK ASK your prescriber and surgeon aspirin 81 mg tablet,delayed release (Aspir-) 81 mg PO QAM STOP taking 2 weeks before surgery (or as soon as possible if surgery is within 2 weeks) mineral oil 30 ml PO QPM STOP taking 48 hours before surgery fenofibrate nanocrystallized 145 mg tablet 145 mg PO QPM DO NOT take the morning of surgery docusate sodium 100 mg capsule (Colace) 100 mg PO BID canagliflozin 100 mg tablet (Invokana) 100 mg PO QAM multivitamin 1 tab PO QAM psyllium husk 3.4 gram/5.4 gram oral powder (Metamucil) 1 tbsp PO QAM Take morning of surgery With a small sip of water, OTHERWISE NOTHING TO EAT OR DRINK AFTER MIDNIGHT: carvedilol 25 mg tablet 25 mg PO BID allopurinol 300 mg tablet 300 mg PO QAM acetaminophen 325 mg tablet (Tylenol) 1,300 mg PO QID PRN (if needed) finasteride 5 mg tablet 5 mg PO QAM Take evening before surgery carvedilol 25 mg tablet 25 mg PO BID docusate sodium 100 mg capsule (Colace) 100 mg PO BID rosuvastatin 20 mg tablet 20 mg PO HS tamsulosin 0.4 mg capsule 0.4 mg PO HS acetaminophen 325 mg tablet (Tylenol) 1,300 mg PO QID PRN (if needed) insulin degludec 100 unit/mL subcutaneous solution (Tresiba U-100 Insulin) 30 unit SUBCUT HS linaclotide 145 mcg capsule (Linzess) 145 mcg PO HS Other Notes If you have any questions please call us at [phone] or [phone] or [phone] or [phone]
--- NOTE | 2022-02-24 10:54 | History & Physical Report ---
Date of Service February 24, 2022 Assessment & Plan (1) History of lumbar fusion: (2) Chronic back pain: Plan: Mr. Yepez is an 82 year old male that is struggling to perform his daily activities due to chronic low back pain. He has failed conservative measures including oral opioids, adjunctive medications, and interventional procedures. He has been offered an intrathecal Morphine trial. Risks and benefits were reviewed with the patient. Procedure was explained and he would like to proceed with the procedure. Procedure is scheduled for 03/01/2022. History of Present Illness Chief Complaint: Intractable lumbar pain Primary Care Provider: Jim Alvarez M.D. Mr. Yepez is an 82 year old male that has been seen in the [facility] for chronic intractable lumbar pain. He does have an extensive history of lumbar spinal surgeries (2005, 2013, 2017) which resulted in an L1-S1 fusion and the most recent right SI joint fusion in 2019. His pain is located in the right low back. No radicular symptoms. He describes an aching, cramping, and spasming sensation. The pain is aggravated with standing and decreased with sitting or laying supine. The legs are not painful but rather weak. He is unable to stand for longer than 5 minutes at a time. He has previously tried treatments including physical therapy, TENS unit, chiropractics, acupuncture, multiple epidural injections as well as radiofrequency ablations, trigger point injections, surgical procedures, ice, heat, Tylenol, gabapentin, opioids, oral steroids, [id number] patches/creams. He has failed opioids including hydrocodone, tramadol, oxycodone, Butrans patch, Nucynta, duloxetine. Case discussed with Dr. Hess Allergies Allergy/AdvReac Type Severity Reaction Status Date / Time cyclobenzaprine AdvReac Severe Disorientation, Verified 03/01/22 06:18 confusion Home Medications Medication Instructions Recorded Confirmed Type aspirin 81 mg tablet,delayed 81 mg PO QAM 06/11/18 03/01/22 History release (Aspir-) carvedilol 25 mg tablet 25 mg PO BID 06/11/18 03/01/22 History allopurinol 300 mg tablet 300 mg PO QAM #30 tab 11/02/18 03/01/22 Rx docusate sodium 100 mg capsule 100 mg PO BID 01/10/19 03/01/22 History (Colace) semaglutide 1 mg/dose (2 mg/1.5 1 mg SQ WK ml 01/10/19 03/01/22 History mL) subcutaneous pen injector (Ozempic) fenofibrate nanocrystallized 145 145 mg PO QPM 05/22/19 03/01/22 History mg tablet rosuvastatin 20 mg tablet 20 mg PO HS 05/22/19 03/01/22 History tamsulosin 0.4 mg capsule 0.4 mg PO HS #90 cap 06/10/20 03/01/22 Rx acetaminophen 325 mg tablet 1,300 mg PO QID PRN tab 05/07/21 03/01/22 History (Tylenol) canagliflozin 100 mg tablet 100 mg PO QAM 05/07/21 03/01/22 History (Invokana) finasteride 5 mg tablet 5 mg PO QAM 05/07/21 03/01/22 History insulin degludec 100 unit/mL 30 unit SUBCUT HS ml 05/07/21 03/01/22 History subcutaneous solution (Tresiba U-100 Insulin) linaclotide 145 mcg capsule 145 mcg PO HS 05/07/21 03/01/22 History (Linzess) mineral oil 30 ml PO QPM ml 05/07/21 03/01/22 History multivitamin 1 tab PO QAM 05/07/21 03/01/22 History psyllium husk 3.4 gram/5.4 gram 1 tbsp PO QAM 05/07/21 03/01/22 History oral powder (Metamucil) Past Med/Surg History Medical History Anemia Chronic Carotid artery stenosis s/p left CEA (2006) CKD (chronic kidney disease) Coronary artery disease CABG x2 (2006) Diabetes mellitus, type 2 IDDM Dyslipidemia Frozen shoulder Gout History of atrial fibrillation s/p radiofrequency ablation (2011) History of blood transfusion Post-op (2017) History of kidney stones Hx of atrial flutter 4:1 AV conduction s/p cardioversion x2 and subsequent successful RFA (2011) Hx of sleep apnea Refuses CPAP per records Uses oxygen 2L HS N/C Hypertension Myofascial pain Obesity Postlaminectomy syndrome of lumbosacral region Prostate cancer s/p radiation (2017) Spinal stenosis Surgical History H/O cardiac radiofrequency ablation atrial flutter converted to NSR History of cystoscopy + stent (08/06/18): MAC sedation at [facility] History of difficult intubation L2-S1 fusion 06/19/2014 - "poor visualization with MAC 4. Glidescope #4 utilized. 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 Mood and affect is appropriate. In no acute distress. HEAD: Normocephalic; atraumatic. EYES: No conjunctival injection. EOM intact. ENT: Wearing mask. NECK: Full ROM; trachea is midline; no TTP; no cervical lymphadenopathy. CARDIO: Regular rate and rhythm. No murmurs, rubs, or gallops. PULM: Clear to auscultation. No wheezes, rales, or rhonchi. CHEST: Regular chest respiration and excursion. ABDOMEN: Active bowel sounds throughout; non-tender to palpation. No peritoneal signs. No CVA tenderness bilaterally. EXTREMITIES: 4/5 strength of the lower extremities. No TTP. BACK: Complete loss of lumbar lordosis. Well-healed surgical incision along the lumbar midline. Mild diffuse lumbosacral tenderness. No myofascial spasm or trigger points noted. NEURO: CN II-XII grossly intact with no focal deficits noted. Ambulating with a nonmotorized wheelchair. SKIN: No lesions, erythema, or rashes noted.
--- NOTE | 2022-02-25 15:29 | Anesthesiology Consultation ---
Date of Service February 25, 2022 Assessment & Plan (1) Encounter for pre-operative examination: - COVID screening: Per assessment on 02/25: No known COVID-19 positive contacts or current COVID-19 related symptoms. Travel screen negative. Patient vaccinated. Preop Covid test being done 02/25 (at [facility]). Awaiting results. - Vascular office visit (02/14/22): "Stable right ICA stenosis of 60 to 69%, and no restenosis noted in his left ICA endarterectomy site. We recommend that he return to us on an annual basis with a new ultrasound prior to that visit." - Check BSG AM DOS - Hx glidescope intubation: L2-S1 fusion (06/19/2014): "poor visualization with MAC 4. Glidescope #4 utilized. Lg tongue with much soft tissue." Right sacroiliac joint fusion (04/08/20): Grade view 1, Glidescope #4, ETT 7.5 at [facility]. Chart Review Chart Review: Acceptable Risk for Surgery (pending evaluation AM DOS) and Patient seen in Pre Admission Testing Teaching & Discussion Pre-Anesthesia Teaching/Discussion Notes: Instructed NPO after midnight before surgery,except medications with 15 cc of water. Medication instructions provided according to the PAT guidelines. History Surgery Operation Date: 03/01/22 07:30 Proposed Procedures p Morphine Intrathecal Pump Trial - Eric Hess MD, FIPP Height/Weight Height: 5 ft 8 in Weight: 113 kg Allergies Allergy/AdvReac Type Severity Reaction Status Date / Time cyclobenzaprine AdvReac Severe Disorientation, Verified 02/25/22 15:11 confusion Medications Home Medications Medication Instructions Recorded Confirmed Last Taken aspirin 81 mg tablet,delayed 81 mg PO QAM 06/11/18 02/25/22 04/07/20 09:00 release (Aspir-) carvedilol 25 mg tablet 25 mg PO BID 06/11/18 02/25/22 04/07/20 22:00 allopurinol 300 mg tablet 300 mg PO QAM #30 tab 11/02/18 02/25/22 04/07/20 09:00 docusate sodium 100 mg capsule 100 mg PO BID 01/10/19 02/25/22 04/07/20 22:00 (Colace) semaglutide 1 mg/dose (2 mg/1.5 1 mg SQ WK ml 01/10/19 02/25/22 04/07/20 13:00 mL) subcutaneous pen injector (Ozempic) fenofibrate nanocrystallized 145 145 mg PO QPM 05/22/19 02/25/22 04/06/20 mg tablet rosuvastatin 20 mg tablet 20 mg PO HS 05/22/19 02/25/22 04/07/20 22:00 tamsulosin 0.4 mg capsule 0.4 mg PO HS #90 cap 06/10/20 02/25/22 Unknown acetaminophen 325 mg tablet 1,300 mg PO QID PRN tab 05/07/21 02/25/22 Unknown (Tylenol) canagliflozin 100 mg tablet 100 mg PO QAM 05/07/21 02/25/22 Unknown (Invokana) finasteride 5 mg tablet 5 mg PO QAM 05/07/21 02/25/22 Unknown insulin degludec 100 unit/mL 30 unit SUBCUT HS ml 05/07/21 02/25/22 Unknown subcutaneous solution (Tresiba U-100 Insulin) linaclotide 145 mcg capsule 145 mcg PO HS 05/07/21 02/25/22 Unknown (Linzess) mineral oil 30 ml PO QPM ml 05/07/21 02/25/22 Unknown multivitamin 1 tab PO QAM 05/07/21 02/25/22 Unknown psyllium husk 3.4 gram/5.4 gram 1 tbsp PO QAM 05/07/21 02/25/22 Unknown oral powder (Metamucil) Past Medical History Medical History (Updated 02/28/22 @ 08:36 by Hannah Montano) Anemia Chronic Carotid artery stenosis s/p left CEA (2006) CKD (chronic kidney disease) Coronary artery disease CABG x2 (2006) Diabetes mellitus, type 2 IDDM Dyslipidemia Frozen shoulder Gout History of atrial fibrillation s/p radiofrequency ablation (2011) History of blood transfusion Post-op (2017) History of kidney stones Hx of atrial flutter 4:1 AV conduction s/p cardioversion x2 and subsequent successful RFA (2011) Hx of sleep apnea Refuses CPAP per records Uses oxygen 2L HS N/C Hypertension Myofascial pain Obesity Postlaminectomy syndrome of lumbosacral region Prostate cancer s/p radiation (2016) Spinal stenosis Exercise / Class Metabolic Activity III < 4 Walking/Shop/Light housework Past Family History Family History Grandmother Diabetes Other Alzheimer disease Prostate cancer Past Surgical History Surgical History H/O cardiac radiofrequency ablation atrial flutter converted to NSR History of cystoscopy + stent (08/06/18): MAC sedation at [facility] History of difficult intubation L2-S1 fusion 06/19/2014 - "poor visualization with MAC 4. Glidescope #4 utilized. Lg tongue with much soft tissue." History of lumbar fusion x 4 back surgeries History of open reduction and internal fixation (ORIF) procedure R/L ankles () S/P CABG x 2 FRANCO-LAD; LAD-D1 SUB BRANCH (2006) S/P carotid endarterectomy Left (2006) Past Anesthesia History No Hx of Anesthesia Complications and No Family Hx of Anesthesia Complications History of PONV No Hx of PONV and No Hx of Motion Sickness Social History Smoking Status: Never smoker Do You Dip or Chew Tobacco: No Hx Alcohol Use: No Hx Substance Use: No substance use type: does not use Review of Systems Patient denies chest pain, shortness of breath, fever, chills, cough, wheezing, palpitations. Physical Exam Vital Signs VITALS BP 152/80 P 67 TEMP 98.3 SP02 95%Ra RESP 16 PHYSICAL Full cervical extension range of motion. Full TMJ range of motion. TMD 4 finger breaths Mallampati Score 2 (large tongue) Dentition: intact, upper right side/front tooth "repaired"/? implant Lungs: clear throughout to auscultation Cardiac: regular rate and rhythm, no murmurs noted Spine: normal Carotid arteries: negative bruit Extremities: no edema Thick neck Lab Results Anesthesia Preop Results Results Anesthesia Widget: WBC 4.97 K/uL (4.8-10.8) 02/25/22 Hgb 11.8 g/dL (14.0-18.0) L 02/25/22 Hct 36.4 % (42-52) L 02/25/22 Plt 280 K/uL (130-400) 02/25/22 Na 139 mmol/L (136-145) 02/25/22 K 5.0 mmol/L (3.5-5.1) 02/25/22 Cl 106 mmol/L (98-107) 02/25/22 CO2 27 mmol/L (21-32) 02/25/22 BUN 54 mg/dl (6-23) H 02/25/22 Creat 1.50 mg/dl (0.6-1.4) H 02/25/22 Glucose Level 97 mg/dl (70-99(Fasting)) 02/25/22 TSH 4.884 uIu/ml (0.300-4.500) H 02/25/22 Free T4 0.79 ng/dl (0.61-1.60) 02/25/22 HA1c 6.7 % (4.5-5.6) H 02/25/22 Urine Color Yellow 02/25/22 Urine Appearance Clear (Clear) 02/25/22 Urine pH 5.0 (4.5-7.5) 02/25/22 Urine Specific [place] 1.025 (1.000-1.030) 02/25/22 Urine Protein 1+ (Negative) H 02/25/22 Urine Glucose (UA) 3+ (Negative) H 02/25/22 Urine Ketones Negative (Negative) 02/25/22 Urine Blood Negative (Negative) 02/25/22 Urine Nitrite Negative (Negative) 02/25/22 Urine Bilirubin Negative (Negative) 02/25/22 Urine Urobilinogen Negative (Negative) 02/25/22 Urine Leukocyte Esterase Negative (Negative) 02/25/22 Urine WBC (Auto) 1-5 /hpf (0-5) 02/25/22 Urine RBC (Auto) 0-4 /hpf (0-4) 02/25/22 Urine Hyaline Casts (Auto) 0 /lpf (0-5) 02/25/22 Urine Epithelial Cells (Auto) 5-10 /lpf (0-5) H 02/25/22 Urine Bacteria (Auto) Negative (Negative) 02/25/22 Testing Electrocardiogram Date: 02/25/22 SR with first degree AVB at 69bpm. LAD. RBBB. Chest X-Ray Date: 02/25/22 FINDINGS: Mild stable cardiomegaly. Prior median sternotomy. Lungs are clear. Diaphragms are smooth. IMPRESSION: Mild cardiomegaly. Otherwise negative study. Echocardiogram Date: 10/22/18 Echo (10/22/18): LV systolic function is normal. EF 70%. Right ventricle is not well visualized, but there appears to be reduced right ventricular systolic function. Echo (10/21/18): EF 65-70%. No regional motion abnormality. Grade 1 diastolic dysfunction. Pulmonary pressures could not be assessed due to lack of significant TR. No significant valvular disease. Other Testing Cerebrovascular duplex (02/14/22) 60-69% right ICA stenosis. Patent left carotid endarterectomy without hemodynamically significant restenosis. Antegrade flow in bilateral vertebral arteries. Normal flow in bilateral subclavian arteries. Greater than 50% stenosis of the bilateral external carotid arteries. Complex calcified plaque in the bulb and right ICA. Irregular surface, fibrofatty plaque in the bulb of the left ICA; status post CEA. No significant change from prior exam dated 08/09/2021 per report.
[2022-03-01] MEDS ORDERED: fentaNYL citrate 100 MCG/2 ML VIAL IV SCH (06:00)
[2022-03-01] MEDS ORDERED: ceFAZolin 2000MG 2,000 MG/15 ML SYR IV SCH (06:00)
[2022-03-01] MEDS ORDERED: MORPHINE SULFATE EPI SCH (06:00)
[2022-03-01] MEDS ORDERED: LR 15ML/HR IV SCH (06:00)
[2022-03-01] MEDS ORDERED: MoRPHine SULFATE PF 1 MG/ML 10 ML AMP/VIAL EPI SCH (06:00)
[2022-03-01] MEDS ORDERED: ePHEDrine sulfate 50 MG/ML AMP ONE (06:54)
[2022-03-01] MEDS ORDERED: ONDANSETRON INJ 2 MG/ML 2 ML VIAL ONE (06:54)
[2022-03-01] MEDS ORDERED: PROPOFOL IV EMULSION 10 MG/ML 20 ML VIAL IV ONE (06:54)
[2022-03-01] MEDS ORDERED: LIDOCAINE 2% 2 ML VIAL/AMP(20MG/ML) INFIL ONE (06:54)
[2022-03-01] MEDS ORDERED: fentaNYL citrate 100 MCG/2 ML VIAL ONE ×2 (06:55→07:57)
--- NOTE | 2022-03-01 07:33 | History & Physical Bridge Note ---
Date of Service March 01, 2022 History & Physical Bridge Note History & Physical Bridge Note Forest Yepez is a 82-year-old male with a history of chronic lumbar spine pain due to multifactorial etiology, including post laminectomy syndrome. Patient is scheduled today for intraspinal morphine via epidural catheter. Patient's past medical history, surgical history, medication and allergy list has been reviewed and no changes noted since his last history and physical examination performed. Review of systems is negative for any cardiac, pulmonary, GI, , endocrine or acute neurological complaints other than what is listed in the HPI section. Physical exam: GENERAL: Patient appears he stated age. Speech and cognition is intact. Mood and affect is appropriate. Sensorium is clear. He is in no acute distress. HEAD: Normocephalic; atraumatic. EYES: Pupils are round, equal, and reactive to light. EOM intact. Mucous membranes moist and pink. No oral lesions noted. ENT: No external ear discharge or lesions. No rhinorrhea or epistaxis. No mucosal lesions. NECK: Full ROM. Trachea is midline. No thyromegaly. No cervical lymphadenopathy. Carotids without bruit. CARDIAC: Regular rate and rhythm. No murmur or gallops noted. CHEST: Regular chest respiration and excursion. Lungs are clear to auscultation. ABDOMEN: No organomegaly appreciated. Bowel sounds are hypoactive. EXTREMITIES: Full ROM and +5 strength of bilateral lower extremities. Distal sensation and pulses intact bilaterally. BACK: NEURO: Cranial nerves II-XII grossly intact with no focal deficits noted. Deep tendon reflexes in the upper and the lower extremities are symmetrical. Sensation and motor strength testing is unremarkable. SKIN: No lesions, erythema, or rashes noted. ASSESSMENT: RECOMMENDATION: Recommend epidural trial of morphine infusion to determine the efficacy, side effects and approximately dosage in consideration of intrathecal pump implantation. Patient has failed multiple conservative therapies including medication management, use of opioids, interventional pain management, physical therapy and lumbar spine surgery. He has persistent symptoms that interferes with performing activities required for daily living. History reviewed, examination performed, pertinent laboratory and imaging studies reviewed. No contraindications noted to proceeding with the proposed procedure. Potential risks including infection, bleeding, hematoma, nerve injury, persistent back pain, injury to the spinal cord, dural puncture with persistent cerebrospinal fluid leak, post dural puncture headache which may require additional interventional procedures to treat were discussed with the p atient in detail. Alternative treatments were also discussed. Patient's questions were answered and gives informed consent to proceed with the proposed procedure.
[2022-03-01] MEDS ORDERED: MIDAZOLAM HCL 1 MG/ML 2ML VIAL ONE (07:57)
[2022-03-01] MEDS ORDERED: MoRPHine SULFATE PF 1 MG/ML 10 ML AMP/VIAL ONE (07:57)
[2022-03-01] MEDS ORDERED: NALOXONE HCL 0.4 MG/1 ML VIAL/CARP IV PRN (08:43)
[2022-03-01] MEDS ORDERED: diphenhydrAMINE Capsule 25 MG CAP PO PRN (08:43)
[2022-03-01] MEDS ORDERED: MAGNESIUM CITRATE 296 ML/BTL PO PRN (08:43)
--- NOTE | 2022-03-01 08:43 | Operative Report ---
Post Operative Report Pre & Post Diagnosis Operation Date: 03/01/22 07:30 Pre-Op Diagnosis: Chronic Intractable, Post Laminectomy Syndrome Post-Op Diagnosis: Chronic Intractable, Post Laminectomy Syndrome I identified the patient and participated in the time-out.: Yes Procedure Operation Date: 03/01/22 07:30 Actual Procedures Morphine Intrathecal Pump Trial- Eric Hess MD, [facility] Surgeon Eric Hess MD, [facility] Safety Specialist None Estimated Blood Loss 0 Findings Consistent with Post-Op Diagnosis Specimens None Drains Nonr Anesthesia Type MAC Complications none Disposition Accompanied Patient To Recovery: No Disposition: Recovery Room Description of Procedure INTRATHECAL [BACLOFEN] [OPIOID] TRIAL Diagnosis: Lumbar postlaminectomy syndrome Side/Level injected: L3/L4 midline Surgeon: Dr. Hess Prior to starting, the Patients diagnosis and the procedure were reviewed with the patient in detail. Possible risks and complications including infection, bleeding, damage to surrounding structures and increased pain were discussed. Alternative therapies were also reviewed. Patients questions were answered and they agreed to proceed. Informed consent was obtained. Allergies and medication list was reviewed. The patient was brought to the operating room room and placed in prone position. Immediately prior to starting the procedure, a ``time out was conducted with the staff and the patient where the patient was identified, proposed procedure was verified, consent was reviewed and the proper site for the planned procedure was identified. Monitors used included intermittent blood pressure with automated device, continuous pulse oximetry and level of consciousness. Patient was not given any intravenous sedation and constant verbal contact was maintained throughout the procedure. On examination, no signs of skin breakdown or infection were noted at the injection site. The site was cleansed with DuraPrep followed by Betadine. Sterile drapes were applied. 1% lidocaine 3 cc, was infiltrated in the skin and subcutaneous tissues using a 27 gauge needle. Fluoroscopic survey demonstrated wide excision laminectomy from T12 all the way down to L5 with instrumentation. Attempt was made at inserting epidural catheter at T11/T12 but this was unsuccessful due to narrow interlaminar notch and multiple osteophyte formation with thickened ligamentum flavum. Therefore he was elected to proceed with intraspinal trial rather than epidural trial at this point. Next, a 20-gauge introducer with 22 gauge, 3.5 inch SocioSquareott spinal needle was then inserted through the anesthetized and advanced via midline approach at L3/L4 level. The patient did not experience pain or paresthesia. Bevel of the needle was directed in the cephalad direction. Aspiration via the needle demonstrated free flow CSF but no blood. Next, 10 mcg fentanyl and 200 mcg of preservative free morphine was injected through the needle. The needle was then withdrawn. Adequate hemostasis was noted. Patient tolerated the procedure uneventfully without complications. Patient was brought to recovery area and observed. Vital signs were stable prior to discharge. Patient was discharged home with standard discharge instructions after 30minutes with an adult service parts driver. I attest to the content of the Intraoperative Record and any orders documented therein. Any exceptions are noted below.
[2022-03-01] MEDS ORDERED: NO NARCOTICS OR SEDATIVES SCH (08:45)
[2022-03-01] MEDS ORDERED: ACETAMINOPHEN 325 MG TAB PO PRN (08:54)
[2022-03-01] MEDS ORDERED: NON-FORMULARY MEDICATION (Canagliflozin [Invokana] 100 mg tablet) PO SCH (09:00)
[2022-03-01] MEDS ORDERED: ATROPINE SULFATE 0.1 MG/ML 10ML SYR IV PRN (09:10)
[2022-03-01] MEDS ORDERED: ePHEDrine sulfate 50 MG/ML AMP IV PRN (09:10)
--- NOTE | 2022-03-01 09:33 | Anesthesiology Progress Note ---
Date of Service March 01, 2022 Anesthesia Post Procedure Vital Signs Vital Signs: Temp Pulse Pulse Resp BP Pulse Ox 03/01/22 09:10 70 10 L 170/80 H 95 03/01/22 09:00 70 11 L 171/82 H 98 03/01/22 08:50 72 12 186/89 H 97 03/01/22 08:44 36.4 C L 72 16 181/87 H 97 03/01/22 06:26 36.7 C 74 20 174/81 H 96 Transfer of Care Handoff Completed per policy Notes Mental Status: alert / awake / arousable Patient Amnestic to Procedure: Yes Nausea / Vomiting: adequately controlled Pain: adequately controlled Airway Patency, RR, SpO2: stable & adequate BP & HR: stable & adequate Hydration State: stable & adequate Anesthetic Complications: no major complications apparent
[2022-03-01] MEDS: FINASTERIDE 5 MG TAB PO SCH (12:28)
[2022-03-01] MEDS: DOCUSATE SODIUM 100 MG CAP PO SCH ×2 (12:28→20:39)
[2022-03-01] MEDS ORDERED: PHARMACY GLYCEMIC MGMT CONSULT PRN (13:22)
[2022-03-01] MEDS: carvediloL 25 MG TAB PO SCH ×2 (13:32→20:39)
[2022-03-01] MEDS: allopurinoL 300 MG TAB PO SCH (13:32)
[2022-03-01] MEDS ORDERED: GLUCOSE 40% GEL 15 GM TUBE PO PRN (14:30)
[2022-03-01] MEDS ORDERED: GLUCOSE 10 TABS/TUBE PO PRN (14:30)
[2022-03-01] MEDS ORDERED: DEXTROSE 50% 50 ML SYRINGE IV PRN (14:30)
[2022-03-01] MEDS ORDERED: GLUCAGON FOR INJ 1 MG VIAL IM PRN (14:30)
[2022-03-01] MEDS ORDERED: CARBOHYDRATES FOR HYPOGLYCEMIA PO PRN (14:30)
[2022-03-01] MEDS ORDERED: FENOFIBRATE NANOCRYSTALLIZED 145 MG TABLET PO SCH (16:30)
[2022-03-01] MEDS: INSULIN ASPART PER UNIT SC SCH ×2 (17:10→20:40)
[2022-03-01] MEDS ORDERED: KONDREMUL 30ML UDP PO SCH (21:00)
[2022-03-01] MEDS ORDERED: INSULIN GLARGINE SOLOSTAR 100 UNITS/ML 3 ML PEN SC SCH (21:00)
[2022-03-01] MEDS ORDERED: INSULIN DEGLUDEC 100 UNIT/ML SQ SCH (21:00)
[2022-03-01] MEDS ORDERED: ROSUVASTATIN CALCIUM 20 MG TAB PO SCH (21:00)
[2022-03-01] MEDS ORDERED: LINACLOTIDE 145 MCG CAPSULE PO SCH (21:00)
[2022-03-01] MEDS ORDERED: TAMSULOSIN HCL 0.4 MG CAP PO SCH (21:00)
[2022-03-01] MEDS ORDERED: [UNRECOGNIZED DRUG - OTHER] SQ SCH (21:00)
[2022-03-02] MEDS: carvediloL 25 MG TAB PO SCH (07:56)
[2022-03-02] MEDS: FINASTERIDE 5 MG TAB PO SCH (07:57)
[2022-03-02] MEDS: DOCUSATE SODIUM 100 MG CAP PO SCH (07:57)
[2022-03-02] MEDS: allopurinoL 300 MG TAB PO SCH (07:57)
--- NOTE | 2022-03-02 08:40 | Pain Management Progress Note ---
Date of Service March 02, 2022 Assessment & Plan (1) Chronic back pain: (2) History of lumbar fusion: Plan: Patient reports an overall 50% relief of back pain with the intraspinal Morphine trial that was performed yesterday. He denies any side effects to the medicatio n. He will follow up in the office in one week to further discuss the trial results and discuss the possible implantation of an intrathecal pump. Admission and Anticipated Discharge Date Admission Date: March 01, 2022 Anticipated date of discharge: 03/02/22 Subjective Mr. Yepez is an 82 year old male that received an intrathecal single shot intraspinal Morphine trial yesterday for intractable back pain. He is currently reporting 5/10 pain. He states that he is able to lay down and sit more comfortably. He has not been up standing or walking much and unsure if it helped the pain he experiences at that time. He denies any side effects to the medication. No fevers, chills, nausea, vomiting, urinary retention, drowsiness. Case discussed with Dr. Hess Physical Exam Physical Exam: GENERAL: This is an 82 year old male sitting in the hospital chair eating breakfast. In no acute distress. HEAD/FACE: Normocephalic and atraumatic. EYES: No drainage or conjunctival injection. ENT: Nose without bleeding or discharge. Oral mucosa moist. NECK: Full ROM without apparent pain. No swelling or masses noted. RESPIRATORY: Patient with unlabored breathing. No signs of respiratory distress. CHEST/AXILLA: Chest movement symmetrical. No deformities noted. BACK: Able to flex forward without difficulty. SKIN: Two injection sites on the thoracic and upper lumbar region with bandaids in place. No injections site erythema, warmth, drainage. MS/EXTREMITY: No swelling, no deformities. Moving extremities appropriately. NEURO: Alert and appears oriented. Speech is fluent. Cranial Nerves are grossly intact. PSYCH: Alert, pleasant, affect is calm
[2022-03-02] MEDS: INSULIN ASPART PER UNIT SC SCH ×2 (08:47→11:49)
--- NOTE | 2022-03-02 08:47 | Discharge Summary ---
Date of Service March 02, 2022 Admission HPI Per Admitting Provider Mr. Yepez is an 82 year old male that has been seen in the [facility] for chronic intractable lumbar pain. He does have an extensive history of lumbar spinal surgeries (2005, 2013, 2017) which resulted in an L1-S1 fusion and the most recent right SI joint fusion in 2019. His pain is located in the right low back. No radicular symptoms. He describes an aching, cramping, and spasming sensation. The pain is aggravated with standing and decreased with sitting or laying supine. The legs are not painful but rather weak. He is unable to stand for longer than 5 minutes at a time. He has previously tried treatments including physical therapy, TENS unit, chiropractics, acupuncture, multiple epidural injections as well as radiofrequency ablations, trigger point injections, surgical procedures, ice, heat, Tylenol, gabapentin, opioids, oral steroids, [id number] patches/creams. He has failed opioids including hydrocodone, tramadol, oxycodone, Butrans patch, Nucynta, duloxetine. Case discussed with Dr. Hess Admission Exam (Per Admitting) Constitutional GENERAL: Speech and cognition is intact. Mood and affect is appropriate. In no acute distress. HEAD: Normocephalic; atraumatic. EYES: No conjunctival injection. EOM intact. ENT: Wearing mask. NECK: Full ROM; trachea is midline; no TTP; no cervical lymphadenopathy. CARDIO: Regular rate and rhythm. No murmurs, rubs, or gallops. PULM: Clear to auscultation. No wheezes, rales, or rhonchi. CHEST: Regular chest respiration and excursion. ABDOMEN: Active bowel sounds throughout; non-tender to palpation. No peritoneal signs. No CVA tenderness bilaterally. EXTREMITIES: 4/5 strength of the lower extremities. No TTP. BACK: Complete loss of lumbar lordosis. Well-healed surgical incision along the lumbar midline. Mild diffuse lumbosacral tenderness. No myofascial spasm or trigger points noted. NEURO: CN II-XII grossly intact with no focal deficits noted. Ambulating with a nonmotorized wheelchair. SKIN: No lesions, erythema, or rashes noted. Discharge Data Procedures Performed Operation Date: 03/01/22 07:30 Actual Procedures p Morphine Intrathecal Pump Trial(Not Applicable) - Eric Hess MD, [facility] Course (1) Chronic back pain: (2) History of lumbar fusion: Patient reports an overall 50% relief of back pain with the intraspinal Morphine trial that was performed yesterday. He denies any side effects to the medication. He will follow up in the office in one week to further discuss the trial results and discuss the possible implantation of an intrathecal pump.
[2022-03-02] MEDS ORDERED: PSYLLIUM or GUAR GUM FIBER POWDER PACKET PO SCH (09:00)
[2022-03-02 10:39] VITALS: BP 161/74; PULSE 69; TEMP 98.4; O2SAT 92
== END 2022-03-02 14:18 | disposition home or self-care (01) ==
LOC: ASU 05:42 → 2S 05:42

== ENCOUNTER 2022-04-26 05:48 | Observation (INO) ==
--- NOTE | 2022-04-12 10:16 | PAT Medication Instructions ---
Medication Instructions Date of Service April 12, 2022 Home Medications Medication Instructions Recorded allopurinol 300 mg tablet 300 mg PO QAM #30 tabs 11/02/18 tamsulosin 0.4 mg capsule 0.4 mg PO HS #90 caps 06/10/20 aspirin 81 mg tablet,delayed release (Aspir-) 81 mg PO QAM carvedilol 25 mg tablet 25 mg PO BID allopurinol 300 mg tablet 300 mg PO QAM docusate sodium 100 mg capsule (Colace) 100 mg PO BID semaglutide 1 mg/dose (2 mg/1.5 mL) subcutaneous pen injector (Ozempic) 1 mg subcut WK fenofibrate nanocrystallized 145 mg tablet 145 mg PO QPM rosuvastatin 20 mg tablet 20 mg PO HS tamsulosin 0.4 mg capsule 0.4 mg PO HS acetaminophen 325 mg tablet (Tylenol) 1,300 mg PO QID PRN canagliflozin 100 mg tablet (Invokana) 100 mg PO QAM finasteride 5 mg tablet 5 mg PO QAM insulin degludec 100 unit/mL subcutaneous solution (Tresiba U-100 Insulin) 30 unit subcut HS linaclotide 145 mcg capsule (Linzess) 145 mcg PO HS mineral oil 30 ml PO QPM multivitamin 1 tab PO QAM psyllium husk 3.4 gram/5.4 gram oral powder (Metamucil) 1 tbsp PO QAM Continue as directed semaglutide 1 mg/dose (2 mg/1.5 mL) subcutaneous pen injector (Ozempic) 1 mg subcut WK ASK your prescriber and surgeon aspirin 81 mg tablet,delayed release (Aspir-) 81 mg PO QAM STOP 3 days before surgery canagliflozin 100 mg tablet (Invokana) 100 mg PO QAM STOP 48 hours before surgery fenofibrate nanocrystallized 145 mg tablet 145 mg PO QPM STOP taking 2 weeks before surgery mineral oil 30 ml PO QPM DO NOT take the morning of surgery docusate sodium 100 mg capsule (Colace) 100 mg PO BID multivitamin 1 tab PO QAM psyllium husk 3.4 gram/5.4 gram oral powder (Metamucil) 1 tbsp PO QAM Take morning of surgery With a small sip of water, OTHERWISE NOTHING TO EAT OR DRINK AFTER MIDNIGHT: carvedilol 25 mg tablet 25 mg PO BID allopurinol 300 mg tablet 300 mg PO QAM acetaminophen 325 mg tablet (Tylenol) 1,300 mg PO QID PRN(if needed) finasteride 5 mg tablet 5 mg PO QAM Take evening before surgery carvedilol 25 mg tablet 25 mg PO BID docusate sodium 100 mg capsule (Colace) 100 mg PO BID rosuvastatin 20 mg tablet 20 mg PO HS tamsulosin 0.4 mg capsule 0.4 mg PO HS acetaminophen 325 mg tablet (Tylenol) 1,300 mg PO QID PRN(if needed) insulin degludec 100 unit/mL subcutaneous solution (Tresiba U-100 Insulin) 30 unit subcut HS linaclotide 145 mcg capsule (Linzess) 145 mcg PO HS Other Notes If you have any questions please call us at [phone] or [phone] or [phone] or [phone]
--- NOTE | 2022-04-13 14:30 | Anesthesiology Consultation ---
Date of Service April 13, 2022 Assessment & Plan (1) Encounter for pre-operative examination: - COVID screening: Per assessment on 04/13: No known COVID-19 positive contacts or current COVID-19 related symptoms. Travel screen negative. Patient vaccinated. Surgeon arranging preop COVID testing. Awaiting results. -Vascular office visit (02/14/22): "Stable right ICA stenosis of 60 to 69%, and no restenosis noted in his left ICA endarterectomy site. We recommend that he return to us on an annual basis with a new ultrasound prior to that visit." -Hx glidescope intubation: L2-S1 fusion (06/19/2014): "poor visualization with MAC 4. Glidescope #4 utilized. Lg tongue with much soft tissue." Right sacroiliac joint fusion (04/08/20): Grade view 1, Glidescope #4, ETT 7.5 at [facility]. - S/P Morphine epidural pump trial (03/01/22): MAC at [facility]. No issues noted per post-op anesthesia progress note. - Check BSG AM DOS Chart Review Chart Review: Acceptable Risk for Surgery (pending evaluation AM DOS) and Patient seen in Pre Admission Testing Teaching & Discussion Pre-Anesthesia Teaching/Discussion Notes: Instructed NPO after midnight before surgery,except medications with 15 cc of water. Medication instructions provided according to the PAT guidelines. History Surgery Operation Date: 04/26/22 07:30 Proposed Procedures p Implantation of Intrathecal Drug Administration - Eric Hess MD, FIPP Height/Weight Height: 5 ft 8 in Weight: 112.4 kg Allergies Allergy/AdvReac Type Severity Reaction Status Date / Time cyclobenzaprine AdvReac Severe Disorientation, Verified 04/12/22 08:51 confusion Medications Home Medications Medication Instructions Recorded Confirmed Last Taken aspirin 81 mg tablet,delayed 81 mg PO QAM 06/11/18 04/12/22 02/22/22 06:00 release (Aspir-) carvedilol 25 mg tablet 25 mg PO BID 06/11/18 04/12/22 02/28/22 18:00 allopurinol 300 mg tablet 300 mg PO QAM #30 tabs 11/02/18 04/12/22 02/28/22 06:00 docusate sodium 100 mg capsule 100 mg PO BID 01/10/19 04/12/2204/07/20 22:00 (Colace) semaglutide 1 mg/dose (2 mg/1.5 1 mg subcut WK 01/10/19 04/12/22 02/22/22 06:00 mL) subcutaneous pen injector (Ozempic) fenofibrate nanocrystallized 145 145 mg PO QPM 05/22/19 04/12/22 02/28/22 18:00 mg tablet rosuvastatin 20 mg tablet 20 mg PO HS 05/22/19 04/12/22 02/28/22 18:00 tamsulosin 0.4 mg capsule 0.4 mg PO HS #90 caps 06/10/20 04/12/22 02/28/22 18:00 acetaminophen 325 mg tablet 1,300 mg PO QID PRN Pain 05/07/21 04/12/22 Unknown (Tylenol) canagliflozin 100 mg tablet 100 mg PO QAM 05/07/21 04/12/22 02/28/22 06:00 (Invokana) finasteride 5 mg tablet 5 mg PO QAM 05/07/21 04/12/22 02/28/22 06:00 insulin degludec 100 unit/mL 30 unit subcut HS 05/07/21 04/12/22 02/28/22 18:00 subcutaneous solution (Tresiba U-100 Insulin) linaclotide 145 mcg capsule 145 mcg PO HS 05/07/21 04/12/22 02/28/22 18:00 (Linzess) mineral oil 30 ml PO QPM 05/07/21 04/12/22 Unknown multivitamin 1 tab PO QAM 05/07/21 04/12/22 02/28/22 06:00 psyllium husk 3.4 gram/5.4 gram 1 tbsp PO QAM 05/07/21 04/12/22 02/28/22 06:00 oral powder (Metamucil) Past Medical History Medical History (Updated 04/13/22 @ 14:29 by Hannah Montano) Anemia Chronic Carotid artery stenosis s/p left CEA (2006) CKD (chronic kidney disease) Coronary artery disease CABG x2 (2006) Follows Dr. York ([place]) Diabetes mellitus, type 2 IDDM Dyslipidemia Frozen shoulder Gout History of atrial fibrillation s/p radiofrequency ablation (2011) Follows Dr. York ([place]) History of blood transfusion Post-op (2018) History of kidney stones Hx of atrial flutter 4:1 AV conduction s/p cardioversion x2 and subsequent successful RFA (2011) Hx of sleep apnea Refuses CPAP per records Uses oxygen 2L HS N/C Hypertension Myofascial pain Obesity Postlaminectomy syndrome of lumbosacral region Prostate cancer s/p radiation (2017) Spinal stenosis Exercise / Class Metabolic Activity IV < 2 Limit ADL/Bedbound (Able to transfer) Past Family History Family History Grandmother Diabetes Other Alzheimer disease Prostate cancer Past Surgical History Surgical History H/O cardiac radiofrequency ablation atrial flutter converted to NSR History of cystoscopy + stent (08/06/18): MAC sedation at [facility] History of difficult intubation L2-S1 fusion 06/19/2014 - "poor visualization with MAC 4. Glidescope #4 utilized. Lg tongue with much soft tissue." History of lumbar fusion x 4 back surgeries History of open reduction and internal fixation (ORIF) procedure R/L ankles () History of surgery Morphine epidural pump trial (03/01/22): MAC at [facility]. No issues noted per post- op anesthesia progress note. S/P CABG x 2 FRANCO-LAD; LAD-D1 SUB BRANCH (2006) S/P carotid endarterectomy Left (2006) Past Anesthesia History Difficult Airway (L2-S1 fusion 06/19/2014 - "poor visualization with MAC 4. Glidescope #4 utilized. Lg tongue with much soft tissue.") and No Family Hx of Anesthesia Complications History of PONV No Hx of PONV and No Hx of Motion Sickness Social History Smoking Status: Never smoker Do You Dip or Chew Tobacco: No Hx Alcohol Use: Yes alcohol intake frequency: holidays/special occasions only (Very rare) Hx Substance Use: No substance use type: does not use Review of Systems Patient denies chest pain, shortness of breath, fever, chills, cough, wheezing, palpitations. Physical Exam Vital Signs VITALS BP 167/74 P 73 TEMP 98.4 SP02 94%RA RESP 16 PHYSICAL Full cervical extension range of motion. Full TMJ range of motion. TMD 4 finger breaths Mallampati Score 2 (large tongue) Dentition: intact Lungs: clear throughout to auscultation Cardiac: regular rate and rhythm, distant heart sounds Spine: normal Carotid arteries: negative bruit Extremities: no edema Thick neck Lab Results Anesthesia Preop Results Results Anesthesia Widget: WBC 4.97 K/uL (4.8-10.8) 02/25/22 Hgb 11.8 g/dL (14.0-18.0) L 02/25/22 Hct 36.4 % (42-52) L 02/25/22 Plt 280 K/uL (130-400) 02/25/22 Na 139 mmol/L (136-145) 02/25/22 K 5.0 mmol/L (3.5-5.1) 02/25/22 Cl 106 mmol/L (98-107) 02/25/22 CO2 27 mmol/L (21-32) 02/25/22 BUN 54 mg/dl (6-23) H 02/25/22 Creat 1.50 mg/dl (0.6-1.4) H 02/25/22 Glucose Level 97 mg/dl (70-99(Fasting)) 02/25/22 POC Glucose 111 mg/dl (70-99) H 03/02/22 TSH 4.884 uIu/ml (0.300-4.500) H 02/25/22 Free T4 0.79 ng/dl (0.61-1.60) 02/25/22 HA1c 6.7 % (4.5-5.6) H 02/25/22 Urine Color Yellow 02/25/22 Urine Appearance Clear (Clear) 02/25/22 Urine pH 5.0 (4.5-7.5) 02/25/22 Urine Specific [place] 1.025 (1.000-1.030) 02/25/22 Urine Protein 1+ (Negative) H 02/25/22 Urine Glucose (UA) 3+ (Negative) H 02/25/22 Urine Ketones Negative (Negative) 02/25/22 Urine Blood Negative (Negative) 02/25/22 Urine Nitrite Negative (Negative) 02/25/22 Urine Bilirubin Negative (Negative) 02/25/22 Urine Urobilinogen Negative (Negative) 02/25/22 Urine Leukocyte Esterase Negative (Negative) 02/25/22 Urine WBC (Auto) 1-5 /hpf (0-5) 02/25/22 Urine RBC (Auto) 0-4 /hpf (0-4) 02/25/22 Urine Hyaline Casts (Auto) 0 /lpf (0-5) 02/25/22 Urine Epithelial Cells (Auto) 5-10 /lpf (0-5) H 02/25/22 Urine Bacteria (Auto) Negative (Negative) 02/25/22 Testing Electrocardiogram Date: 02/25/22 SR with first degree AVB at 69bpm. LAD. RBBB. Chest X-Ray Date: 02/25/22 FINDINGS: Mild stable cardiomegaly. Prior median sternotomy. Lungs are clear. Diaphragms are smooth. IMPRESSION: Mild cardiomegaly. Otherwise negative study. Echocardiogram Date: 10/22/18 Echo (10/22/18): LV systolic function is normal. EF 70%. Right ventricle is not well visualized, but there appears to be reduced right ventricular systolic function. Echo (10/21/18): EF 65-70%. No regional motion abnormality. Grade 1 diastolic dysfunction. Pulmonary pressures could not be assessed due to lack of significant TR. No significant valvular disease. Stress Test Date: 07/02/18 Other Testing Cerebrovascular duplex (02/14/22) 60-69% right ICA stenosis. Patent left carotid endarterectomy without hemodynamically significant restenosis. Antegrade flow in bilateral vertebral arteries. Normal flow in bilateral subclavian arteries. Greater than 50% stenosis of the bilateral external carotid arteries. Complex calcified plaque in the bulb and right ICA. Irregular surface, fibrofatty plaque in the bulb of the left ICA; status post CEA. No significant change from prior exam dated 08/09/2021 per report.
--- NOTE | 2022-04-21 12:21 | History & Physical Report ---
Date of Service April 21, 2022 Assessment & Plan (1) Lumbar stenosis with neurogenic claudication: (2) Chronic back pain: (3) Postlaminectomy syndrome of lumbosacral region: Plan Mr. Yepez is an 82 year old male that has been struggling to perform his daily activities due to chronic low back pain. He has failed conservative treatments and surgical interventions. He did receive an epidural injection of Morphine on 03/01/22 which did provide about 60% pain relief without any side effects. Patient would like to pursue intrathecal pump and catheter delivery system implantation. Risks and benefits were reviewed with the patient. Seizure is scheduled 04/26/2022. History of Present Illness Primary Care Provider: Jim Alvarez M.D. Mr. Yepez is an 82 year old male that has been seen in the [facility] for chronic intractable lumbar pain. He does have an extensive history of lumbar spinal surgeries (2005, 2013, 2018) which resulted in an L1-S1 fusion and the most recent right SI joint fusion in 2019. His pain is located in the right low back. No radicular symptoms. He describes an aching, cramping, and spasming sensation. The pain is aggravated with standing and decreased with sitting or laying supine. The legs are not painful but they are weak. He is unable to stand for longer than 5 minutes at a time. He has previously tried treatments including physical therapy, TENS unit, chiropractics, acupuncture, multiple epidural injections as well as radiofrequency ablations, trigger point injections, surgical procedures, ice, heat, Tylenol, gabapentin, opioids, oral steroids, [id number]-[id number] patches/creams. He has failed opioids including hydrocodone, tramadol, oxycodone, Butrans patch, Nucynta. Allergies Allergy/AdvReac Type Severity Reaction Status Date / Time cyclobenzaprine AdvReac Severe Disorientation, Verified 04/12/22 08:51 confusion Home Medications Medication Instructions Recorded Confirmed Type aspirin 81 mg tablet,delayed 81 mg PO QAM 06/11/18 04/12/22 History release (Aspir-) carvedilol 25 mg tablet 25 mg PO BID 06/11/18 04/12/22 History allopurinol 300 mg tablet 300 mg PO QAM #30 tabs 11/02/18 04/12/22 Rx docusate sodium 100 mg capsule 100 mg PO BID 01/10/19 04/12/22 History (Colace) semaglutide 1 mg/dose (2 mg/1.5 1 mg subcut WK 01/10/19 04/12/22 History mL) subcutaneous pen injector (Ozempic) fenofibrate nanocrystallized 145 145 mg PO QPM 05/22/19 04/12/22 History mg tablet rosuvastatin 20 mg tablet 20 mg PO HS 05/22/19 04/12/22 History tamsulosin 0.4 mg capsule 0.4 mg PO HS #90 caps 06/10/20 04/12/22 Rx acetaminophen 325 mg tablet 1,300 mg PO QID PRN Pain 05/07/21 04/12/22 History (Tylenol) canagliflozin 100 mg tablet 100 mg PO QAM 05/07/21 04/12/22 History (Invokana) finasteride 5 mg tablet 5 mg PO QAM 05/07/21 04/12/22 History insulin degludec 100 unit/mL 30 unit subcut HS 05/07/21 04/12/22 History subcutaneous solution (Tresiba U-100 Insulin) linaclotide 145 mcg capsule 145 mcg PO HS 05/07/21 04/12/22 History (Linzess) mineral oil 30 ml PO QPM 05/07/21 04/12/22 History multivitamin 1 tab PO QAM 05/07/21 04/12/22 History psyllium husk 3.4 gram/5.4 gram 1 tbsp PO QAM 05/07/21 04/12/22 History oral powder (Metamucil) Past Med/Surg History Medical History Anemia Chronic Carotid artery stenosis s/p left CEA (2006) CKD (chronic kidney disease) Coronary artery disease CABG x2 (2006) Follows Dr. York ([place]) Diabetes mellitus, type 2 IDDM Dyslipidemia Frozen shoulder Gout History of atrial fibrillation s/p radiofrequency ablation (2011) Follows Dr. York ([place]) History of blood transfusion Post-op (2017) History of kidney stones Hx of atrial flutter 4:1 AV conduction s/p cardioversion x2 and subsequent successful RFA (2011) Hx of sleep apnea Refuses CPAP per records Uses oxygen 2L HS N/C Hypertension Myofascial pain Obesity Postlaminectomy syndrome of lumbosacral region Prostate cancer s/p radiation (2017) Spinal stenosis Surgical History H/O cardiac radiofrequency ablation atrial flutter converted to NSR History of cystoscopy + stent (08/06/18): MAC sedation at [facility] History of difficult intubation L2-S1 fusion 06/19/2014 - "poor visualization with MAC 4. Glidescope #4 utilized. Lg tongue with much soft tissue." History of lumbar fusion x 4 back surgeries History of open reduction and internal fixation (ORIF) procedure R/L ankles (1960s) History of surgery Morphine epidural pump trial (03/01/22): MAC at [facility]. No issues noted per post- op anesthesia progress note. 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 Mood and affect is appropriate. In no acute distress. HEAD: Normocephalic; atraumatic. EYES: No conjunctival injection. EOM intact. ENT: Wearing mask. NECK: Full ROM; trachea is midline; no TTP; no cervical lymphadenopathy. CARDIO: Regular rate and rhythm. No murmurs, rubs, or gallops. PULM: Clear to auscultation. No wheezes, rales, or rhonchi. CHEST: Regular chest respiration and excursion. ABDOMEN: Active bowel sounds throughout; non-tender to palpation. No peritoneal signs. No CVA tenderness bilaterally. EXTREMITIES: 4/5 strength of the lower extremities. No TTP. BACK: Complete loss of lumbar lordosis. Well-healed surgical incision along the lumbar midline. Mild diffuse lumbosacral tenderness. No myofascial spasm or trigger points noted. NEURO: CN II-XII grossly intact with no focal deficits noted. Ambulating with a nonmotorized wheelchair. SKIN: No lesions, erythema, or rashes noted.
[~2022-04-26 05:48] MED LIST changes: -ACETAMINOPHEN 500 MG TAB PO SCH; -CEFAZOLIN 2000MG 2,000 MG/15 ML SYR IV SCH; -CeleBREX 200 MG CAP PO SCH; -GABAPENTIN 300 MG CAP PO SCH; -LR 15ML/HR IV SCH; +[UNRECOGNIZED DRUG - REMARK] IT SCH
[2022-04-26] MEDS ORDERED: LR 15ML/HR IV SCH (06:00)
[2022-04-26] MEDS ORDERED: ceFAZolin 2000MG 2,000 MG/15 ML SYR IV SCH (06:00)
[2022-04-26] MEDS ORDERED: fentaNYL citrate 100 MCG/2 ML VIAL ONE ×2 (06:52→09:48)
[2022-04-26] MEDS ORDERED: PROPOFOL IV EMULSION 10 MG/ML 20 ML VIAL IV ONE ×3 (06:58→06:59)
[2022-04-26] MEDS ORDERED: LIDOCAINE 2%/EPINEPHRINE 1:100,000 20ML ONE ×2 (07:02→08:59)
[2022-04-26] MEDS ORDERED: fentaNYL citrate 100 MCG/2 ML VIAL IV PRN (07:07)
[2022-04-26] MEDS ORDERED: ATROPINE SULFATE 0.1 MG/ML 10ML SYR IV PRN (07:07)
[2022-04-26] MEDS ORDERED: ONDANSETRON INJ 2 MG/ML 2 ML VIAL IV PRN (07:07)
[2022-04-26] MEDS ORDERED: ePHEDrine sulfate 50 MG/ML AMP IV PRN (07:07)
--- NOTE | 2022-04-26 07:56 | History & Physical Bridge Note ---
Date of Service April 26, 2022 History & Physical Bridge Note History & Physical Bridge Note Forest Yepez is a 82-year-old male with a history of chronic low back and radicular symptoms due to lumbar postlaminectomy syndrome. He experiences significant pain with minimal ADLs. He has failed conservative therapy and subsequently underwent trial of spinal cord stimulator without efficacy. He then underwent a "single shot" intrathecal morphine with good efficacy and no noted side effects. He has been offered implantation of intrathecal drug delivery system to manage his pain. Patient is scheduled today for implantation of intrathecal catheter and pump. Patient's past medical history, surgical history, medication and allergy list has been reviewed and no changes noted since his last history and physical examination performed. Review of systems is negative for any cardiac, pulmonary, GI, , endocrine or acute neurological complaints other than what is listed in the HPI section. Physical exam: GENERAL: Patient appears his stated age. Speech and cognition is intact. Mood and affect is appropriate. Sensorium is clear. He is in no acute distress. HEAD: Normocephalic; atraumatic. EYES: Pupils are round, equal, and reactive to light. EOM intact. Mucous membranes moist and pink. No oral lesions noted. ENT: No external ear discharge or lesions. No rhinorrhea or epistaxis. No mucosal lesions. NECK: Full ROM. Trachea is midline. No thyromegaly. No cervical lymphadenopathy. Carotids without bruit. CARDIAC: Regular rate and rhythm. No murmur or gallops noted. CHEST: Regular chest respiration and excursion. Lungs are clear to auscultation. ABDOMEN: No organomegaly appreciated. Bowel sounds are hypoactive. EXTREMITIES: Full ROM and +5 strength of bilateral lower extremities. Distal sensation and pulses intact bilaterally. BACK: Loss of lumbar lordosis. Surgical scar lumbar spine. NEURO: Cranial nerves II-XII grossly intact with no focal deficits noted. Deep tendon reflexes in the upper and the lower extremities are symmetrical. Sensation and motor strength testing is unremarkable. SKIN: No lesions, erythema, or rashes noted. ASSESSMENT: Lumbar postlaminectomy syndrome. Failure of conservative therapy to alleviate patient's symptoms with ADLs. RECOMMENDATIONS: Proceed with implantation of intrathecal drug delivery system. History reviewed, examination performed, pertinent laboratory and imaging studies reviewed. No contraindications noted to proceeding with the proposed procedure. Potential risks including infection, bleeding, hematoma, nerve injury, persistent back pain, injury to the spinal cord, dural puncture with persistent cerebrospinal fluid leak, post dural puncture headache which may require additional interventional procedures to treat were discussed with the patient in detail. Alternative treatments were also discussed. Patient's questions were answered and gives informed consent to proceed with the proposed procedure.
[2022-04-26] MEDS ORDERED: KETAMINE 50 MG/5 ML SYRINGE ONE (08:22)
[2022-04-26] MEDS ORDERED: SUGAMMADEX SODIUM 200 MG/2 ML VIAL IV ONE (09:36)
[2022-04-26] MEDS ORDERED: PHENYLEPHRINE 100MCG/ML 5ML SYR ONE (09:49)
[2022-04-26] MEDS ORDERED: ROCURONIUM BROMIDE 10 MG/ML 5 ML VIAL IV ONE (09:49)
[2022-04-26] MEDS ORDERED: ONDANSETRON INJ 2 MG/ML 2 ML VIAL ONE (09:49)
[2022-04-26] MEDS ORDERED: ePHEDrine sulfate 50 MG/ML SYR ONE (09:49)
[2022-04-26] MEDS ORDERED: IOPAMIDOL INJ 61% 15 ML VIAL INSTIL ONE (10:20)
--- NOTE | 2022-04-26 10:57 | Operative Report ---
Post Operative Report Pre & Post Diagnosis Operation Date: 04/26/22 07:30 Pre-Op Diagnosis: Chronic Intractable Pain, Post Laminectomy Syndrome Post-Op Diagnosis: Chronic Intractable Pain, Post Laminectomy Syndrome I identified the patient and participated in the time-out.: Yes Procedure Operation Date: 04/26/22 07:30 Actual Procedures Implantation of Intrathecal Drug Administration System - Eric Hess MD, ZAHEER Surgeon Eric Hess MD, ZAHEER Supervisor Compounding And Finishing Sosa Kirkland PA-C Estimated Blood Loss 10 Findings Consistent with Post-Op Diagnosis Low CSF volume. Specimens None Drains None Anesthesia Type General Complications none Disposition Accompanied Patient To Recovery: Yes Disposition: Recovery Room Description of Procedure Intrathecal pump insertion, Catheter access port study, and Postprocedure Reprogramming and Analysis PREOPERATIVE DIAGNOSIS: Chronic pain secondary to lumbar postlaminectomy syndrome. POSTOPERATIVE DIAGNOSIS: Same. COMPLICATIONS: None. SURGEON: Dr. Hess. LOSS PREVENTION ASSOCIATE: Sosa Kirkland PA-C. ANESTHESIA: General. INDICATIONS: Lumbar postlaminectomy syndrome. Prior to starting, the Patients diagnosis and the procedure were reviewed with the patient in detail. Possible risks and complications including infection, bleeding, damage to surrounding structures, injury to spinal cord and nerves, postural puncture headache and increased pain were discussed. Alternative therapies were also reviewed. Also, the need for routine refill of the pump on an ongoing basis until pump is explanted was discussed with the patient. Patients questions were answered and they agreed to proceed. Informed consent was obtained. Allergies and medication list was reviewed. The patient was brought to the operating room and placed in supine position. Biplanar fluoroscopy and Isovue-M 300 contrast was utilized to assist in placement of the intrathecal needle and to evaluate the catheter position. Preoperative antibiotics was given for prophylaxis. General anesthesia was induced uneventfully and patient was repositioned in right lateral position. On examination, no signs of skin breakdown or infection were noted at the operative sites. Entire thoracic lumbar area and left lower quadrant of the abdomen were cleansed with DuraPrep followed by Betadine. Sterile drapes were applied. Immediately prior to starting the procedure, a ``time out was conducted with the staff and the patient where the patient was identified, proposed procedure was verified, consent was reviewed and the proper site for the planned procedure was identified. Using biplanar fluoroscopic guidance, a 16-gauge spinal needle was used to gain access to the CSF through the approximate L3/L4 interspace using fluoroscopy. No blood was noted. Clear and free CSF flow was obtained and the intrathecal catheter was passed through the needle to position the catheter tip at the T10 vertebral body level. The st ylet was then removed. A 1-1/2 inch midline incision was made surrounding the intrathecal needle. Hemostasis was achieved. The epidural catheter was secured to the fascia with 2 purse string 0 silk ties. The spinal needle was then removed. A pursestring sutures using 0 silk were taken around the catheter site to secure the catheter to the supraspinous ligaments. Noveporter butterfly anchor was used to secure the catheter to the underlying supraspinous ligament with 0 silk sutures. Then in the left quadrant a pocket for the intrathecal pump was made using scalpel, blunt dissection and electrocautery. Hemostasis was achieved using electrocautery. A passer was used to transfer the intrathecal pump catheter underneath the skin and subcutaneous tissues through to the pocket incision. After transfer of the end of the catheter to the pocket incision aspiration of the intrathecal catheter revealed free flowing CSF. Both pocket and midline axial incisions were irrigated with sterile normal saline with bacitracin. The intrathecal pump was filled was rinsed and filled with morphine 2 mg/ml per protocol. Total intrathecal catheter was 101.6 cm. Total catheter volume was 0.224 mL. The suture-less connector was connected to the end the intrathecal pump and aspiration from of the end of the catheter demonstrated free-flowing CSF. It was then connected to the intrathecal pump. The intrathecal pump was anchored in the pocket with 4-0 Prolene sutures. The skin and subcutaneous tissues of both incisions were closed with interrupted oh antibiotic coated STRATAFIX suture and the subcuticular was closed with 30 antibiotic coated STRATAFIX. Perinea tape was applied to the incision followed by Aquacel dressing.. Abdominal binder was applied. No complications were noted throughout the procedure. The patient tolerated the procedure and general anesthesia well and was extubated at the end of the procedure. The patient was then transferred to the recovery room in stable condition. Intrathecal pump was then interrogated and programmed parameters listed below. The patient will follow up with our clinic within 7 days for a wound check and then plan to have the shine removed at day 14. Pump size inserted: 20 ml Level of catheter: T10 Total catheter length: 101.6 cm Total catheter volume: 0.224 ml Medication placed in pump: Morphine 2 mg/ml Daily dose: 0.2 mg/24 hours I attest to the content of the Intraoperative Record and any orders documented therein. Any exceptions are noted below.
[2022-04-26] MEDS ORDERED: HYDROCODONE/ACETAMOPHEN 5/325MG TAB PO PRN (11:01)
[2022-04-26] MEDS ORDERED: diphenhydrAMINE Capsule 25 MG CAP PO PRN (11:01)
[2022-04-26] MEDS ORDERED: NALOXONE HCL 0.4 MG/1 ML VIAL/CARP IV PRN (11:01)
[2022-04-26] MEDS ORDERED: LACTATED RINGER'S 1,000 ML IV SCH (11:15)
[2022-04-26] MEDS ORDERED: NO NARCOTICS OR SEDATIVES SCH (11:15)
--- NOTE | 2022-04-26 12:08 | Anesthesiology Progress Note ---
Date of Service April 26, 2022 Anesthesia Post Procedure Vital Signs Vital Signs: Temp Pulse Pulse Resp BP Pulse Ox O2 Del Method 04/26/22 12:00 71 16 182/86 H 97 Nasal Cannula 04/26/22 11:45 97.3 F L 75 22 177/96 H 98 Nasal Cannula 04/26/22 11:35 73 16 175/97 H 96 Nasal Cannula 04/26/22 11:25 75 17 178/92 H 97 Oxymask 04/26/22 11:15 75 17 186/92 H 97 Oxymask 04/26/22 11:08 96.8 F L 88 20 186/89 H 97 Oxymask 04/26/22 06:20 98.4 F 69 18 177/97 H 95 Room Air O2 Flow Rate 04/26/22 12:00 4 04/26/22 11:45 4 04/26/22 11:35 4 04/26/22 11:25 12 04/26/22 11:15 12 04/26/22 11:08 12 04/26/22 06:20 Pain Intensity Lower Back: Pain Intensity: 2 Transfer of Care Handoff Completed per policy Notes Mental Status: alert / awake / arousable and participated in evaluation Patient Amnestic to Procedure: Yes Nausea / Vomiting: adequately controlled Pain: adequately controlled Airway Patency, RR, SpO2: stable & adequate BP & HR: stable & adequate Hydration State: stable & adequate Anesthetic Complications: no major complications apparent and Pt Satisfied with anesthetic care
[2022-04-26] MEDS ORDERED: ACETAMINOPHEN 325 MG TAB PO PRN (13:26)
[2022-04-26] MEDS ORDERED: carvediloL 25 MG TAB PO ONE (14:43)
[2022-04-26] MEDS ORDERED: SODIUM CHLORIDE 0.9% 1000ML 1,000 ML IV SCH (16:15)
[2022-04-26] MEDS ORDERED: FENOFIBRATE NANOCRYSTALLIZED 145 MG TABLET PO SCH (16:30)
[2022-04-26] MEDS: INSULIN ASPART PER UNIT SC SCH ×2 (17:24→21:53)
--- NOTE | 2022-04-26 17:29 | XRay Report ---
XR thoracolumbar spine 2V, XR lumbar spine min 4V routine HISTORY: 82 years-old Male check catheter site follow-up study in a patient with a pain pump COMPARISON: Chest radiograph 02/25/2022 TECHNIQUE: 2 views of the thoracolumbar spine with 4 views of the lumbar spine FINDINGS: THORACOLUMBAR: Cardiomegaly with prior median sternotomy. Suggested calcific granuloma of the right lung base. Image d lung brush appear clear. There is mild to moderate multilevel intervertebral disc space narrowing with moderate spondylitic spurring and facet arthrosis. No acute fracture or subluxation is identifie d. LUMBAR: Moderate fecal retention with unremarkable soft tissues. Brachytherapy seeds of the prostate. Posteri or interbody tc and screw fusion hardware is noted at L1-S1 with right-sided cannulated screws trave rsing the SI joint. No evidence of hardware complication. Moderate multilevel intervertebral disc spa ce narrowing with bridging osteophytic spurring. A battery pack is projected over the left flank. A partially imaged catheter is noted which appears t o enter the central canal at the L2-L3 level. The distal tip of the catheter is not well visualized, possibly terminating at the level of T11-T12. The study is overall limited secondary to patient body habitus. IMPRESSION: 1. Limited study secondary to patient body habitus. Intrathecal catheter appears to enter the central canal at the L2-L3 level with distal tip likely at the level of T11-T12. 2. Degenerative and chronic postsurgical changes as above. ACT 112: Negative or not required by law. The above report was generated using voice recognition software. It may contain grammatical, syntax o r spelling errors. Electronically signed by: Jae Smyth M.D. 04/26/2022 5:27 PM
[2022-04-26] MEDS ORDERED: cefTRIAXone SODIUM 2,000 MG in DEXTROSE 5% 50 ML IV ONE (19:01)
[2022-04-26] MEDS ORDERED: cefTRIAXone SODIUM 1,000 MG in DEXTROSE 5% 50 ML IV ONE (19:01)
[2022-04-26] MEDS: carvediloL 25 MG TAB PO SCH (20:37)
[2022-04-26] MEDS: DOCUSATE SODIUM 100 MG CAP PO SCH (20:37)
[2022-04-26] MEDS ORDERED: LANTUS PER UNIT CHARGE SQ SCH (21:00)
[2022-04-26] MEDS ORDERED: LINACLOTIDE 145 MCG CAPSULE PO SCH (21:00)
[2022-04-26] MEDS ORDERED: TAMSULOSIN HCL 0.4 MG CAP PO SCH (21:00)
[2022-04-26] MEDS ORDERED: ROSUVASTATIN CALCIUM 20 MG TAB PO SCH (21:00)
[2022-04-26] MEDS ORDERED: KONDREMUL 30ML UDP PO SCH (21:00)
[2022-04-27 06:04] VITALS: O2SAT 96
[2022-04-27] MEDS: DOCUSATE SODIUM 100 MG CAP PO SCH (08:16)
[2022-04-27] MEDS: carvediloL 25 MG TAB PO SCH (08:16)
[2022-04-27] MEDS: INSULIN ASPART PER UNIT SC SCH ×2 (08:21→11:48)
--- NOTE | 2022-04-27 08:59 | Pain Management Progress Note ---
Date of Service April 27, 2022 Assessment & Plan (1) Lumbar stenosis with neurogenic claudication: (2) Osteoarthritis: (3) Morbid obesity: (4) History of lumbar fusion: (5) Presence of intrathecal pump: Plan 1. Patient's pain has slightly improved from the current dosing of the i ntrathecal pump. No dose changes made today. 2. He is scheduled for a wound check in the office 05/03/22 at 1PM. 3. Do not change Aquacel dressing. This will be removed at the wound check visit. 4. Continue to wear abdominal binder 17/04. 5. Patient will try to urinate this morning and if successful then he will be discharged to home. Admission and Anticipated Discharge Date Admission Date: April 26, 2022 Subjective Mr. Yepez is an 82 year old male that is status post implantation of an intrathecal pump and catheter delivery system containing morphine. He states that his chronic low back pain is slightly improved since the implantation. He is having some soreness at the incision sites. Patient has not been very physically mobile since the surgery. He has been experiencing urinary retention and required straight cath early this morning. He does have an urge to urinate this morning and will attempt. No drowsiness, incision site drainage. Physical Exam Physical Exam: GENERAL: This is an 82 year old male that does not appear in any acute distress. HEAD/FACE: Normocephalic and atraumatic. EYES: No drainage or conjunctival injection. ENT: Nose without bleeding or discharge. Oral mucosa moist. RESPIRATORY: Patient with unlabored breathing. No signs of respiratory distress. CHEST/AXILLA: Chest movement symmetrical. No deformities noted. ABDOMEN/GI: Intrathecal pump is located in the left lower abdomen. No mobility. Aquacel dressing in place. BACK: Aquacel dressing in place. SKIN: [place], warm and dry. No rash noted. NEURO: Alert and appears oriented. Speech is fluent. Cranial Nerves are grossly intact. PSYCH: Alert, pleasant, affect is calm
[2022-04-27] MEDS ORDERED: PSYLLIUM or GUAR GUM FIBER POWDER PACKET PO SCH (09:00)
[2022-04-27] MEDS ORDERED: ASPIRIN 81 MG ECTAB PO SCH (09:00)
[2022-04-27] MEDS ORDERED: allopurinoL 300 MG TAB PO SCH (09:00)
[2022-04-27] MEDS ORDERED: FINASTERIDE 5 MG TAB PO SCH (09:00)
[2022-04-27] MEDS ORDERED: NON-FORMULARY MEDICATION (Canagliflozin [Invokana] 100 mg tablet) PO SCH (09:00)
[2022-04-27] MEDS ORDERED: MULTIVITAMIN TAB PO SCH (09:00)
--- NOTE | 2022-04-27 14:39 | Discharge Summary ---
Date of Service April 27, 2022 Admission HPI Per Admitting Provider Mr. Yepez is an 82 year old male that has been seen in the [facility] for chronic intractable lumbar pain. He does have an extensive history of lumbar spinal surgeries (2005, 2013, 2017) which resulted in an L1-S1 fusion and the most recent right SI joint fusion in 2019. His pain is located in the right low back. No radicular symptoms. He describes an aching, cramping, and spasming sensation. The pain is aggravated with standing and decreased with sitting or laying supine. The legs are not painful but they are weak. He is unable to stand for longer than 5 minutes at a time. He has prev iously tried treatments including physical therapy, TENS unit, chiropractics, acupuncture, multiple epidural injections as well as radiofrequency ablations, trigger point injections, surgical procedures, ice, heat, Tylenol, gabapentin, opioids, oral steroids, [id number] patches/creams. He has failed opioids including hydrocodone, tramadol, oxycodone, Butrans patch, Nucynta. Admission Exam (Per Admitting) Constitutional GENERAL: Speech and cognition is intact. Mood and affect is appropriate. In no acute distress. HEAD: Normocephalic; atraumatic. EYES: No conjunctival injection. EOM intact. ENT: Wearing mask. NECK: Full ROM; trachea is midline; no TTP; no cervical lymphadenopathy. CARDIO: Regular rate and rhythm. No murmurs, rubs, or gallops. PULM: Clear to auscultation. No wheezes, rales, or rhonchi. CHEST: Regular chest respiration and excursion. ABDOMEN: Active bowel sounds throughout; non-tender to palpation. No peritoneal signs. No CVA tenderness bilaterally. EXTREMITIES: 4/5 strength of the lower extremities. No TTP. BACK: Complete loss of lumbar lordosis. Well-healed surgical incision along the lumbar midline. Mild diffuse lumbosacral tenderness. No myofascial spasm or trigger points noted. NEURO: CN II-XII grossly intact with no focal deficits noted. Ambulating with a nonmotorized wheelchair. SKIN: No lesions, erythema, or rashes noted. Discharge Data Procedures Performed Operation Date: 04/26/22 07:30 Actual Procedures p Implantation of Intrathecal Drug Administration System(Left) - Eric Hess MD, [facility] Discharge Instructions Wear abdominal binder 24x7 x 4 weeks No need to change the Aquacel dressing. I will change the dressing at your wound check on 05/03/22 at 1PM. Prescription for Hydrocodone 5/325mg will be sent to take if needed for incisional pain.
[2022-04-27 16:08] VITALS: TEMP 98.2
[2022-04-27 16:09] VITALS: BP 111/71; PULSE 65
[2022-04-27] MEDS ORDERED: KONDREMUL 30ML UDP PO SCH (21:00)
[2022-04-27] MEDS ORDERED: KONDREMUL 480ML PO SCH (21:00)
== END 2022-04-27 16:56 | disposition home or self-care (01) ==
LOC: 2S 05:48 → ASU 05:48

== ENCOUNTER 2023-07-16 13:30 | Inpatient (IN) ==
--- NOTE | 2023-07-16 13:40 | ED Triage Note ---
Date of Service July 16, 2023 History of Present Illness This patient was briefly evaluated while in triage. An abbreviated physical exam was performed. This patient is a 83-year-old Male who presents to the ED for evaluation of wheelchair bound dx with shingles on back/leg-Monday (on antiviral) retaining fluid in legs and hands-getting worse family unable to take care of him at home-taking 3-4 people to transfer off diuretic x 2 weeks no SOB Physical Exam GENERAL: NAD, in motorized wheelchair CARDIOVASCULAR: RRR RESPIRATORY: CTA ABDOMEN: BS x 4. Nontender to palpation. Initial orders for labs and / or imaging were placed and patient was placed in the waiting area until a bed is available. Please see further documentation for the full ED course.
[2023-07-16 14:27] LABS: Basophils # (auto) 0.02 K/uL (0.00-0.20); Basophils % (auto) 0.3 %; Eosinophils # (auto) 0.17 K/uL (0.00-0.50); Eosinophils % (auto) 2.4 %; Hematocrit (blood only) 29.5 % (42.0-52.0); Hemoglobin 9.8 g/dl (14.0-18.0); Immature Granulocytes # (auto) 0.02 K/uL (0.01-0.20); Immature Granulocytes % (auto) 0.3 %; Lymphocytes # (auto) 0.98 K/uL (1.20-3.40); Lymphocytes % (auto) 13.8 %; Mean Corpuscular Hemoglobin 30.9 pg (25.0-34.0); Mean Corpuscular Hgb Conc 33.2 g/dL (32.0-36.0); Mean Corpuscular Volume 93.1 fL (80.0-100.0); Mean Platelet Volume 10.6 fL (9.4-12.4); Monocytes # (auto) 0.51 K/uL (0.11-0.59); Monocytes % (auto) 7.2 %; Neutrophils # (auto) 5.38 K/uL (1.40-6.50); Platelet Count 351 K/uL (130-400); RDW Coefficient of Variation 15.5 % (11.5-14.5); RDW Standard Deviation 52.8 fL (36.4-46.3); Red Blood Count 3.17 M/uL (4.70-6.10); White Blood Count 7.08 K/ul (4.8-10.8)
--- NOTE | 2023-07-16 14:34 | Emergency Department Note ---
Impression & Plan Adult failure to thrive, Bilateral edema of lower extremity, Ambulatory dysfunction, Lumbar stenosis with neurogenic claudication, Elevated CPK ED Provider Note NAME: JEAN CARLOS OLIVO AGE: 83 SEX: M ARRIVES VIA: Walk-In INFORMANT: Patient ED PROVIDER(S): Zak Le MD CHIEF COMPLAINT: Weakness PLAN: Disposition: Admit MEDICAL DECISION MAKING: The patient is a pleasant 83-year-old gentleman with a past medical history of atrial fibrillation not on anticoagulation, CAD, gout, hypertension, hyperlipidemia, prostate cancer, type 2 diabetes, spinal stenosis with Ambulatory dysfunction with postlaminectomy syndrome of the lumbar sacral region AVELINA who presents to the emergency department via walk-in accompanied by family for admission and placement due to worsening generalized weakness and need for assistance at home the addition of progressive swelling in both legs over the past month after being taken off of his Lasix per their report. They report that the patient's baseline amatory dysfunction worsened a couple weeks ago in the setting of having a urinary tract infection as well as having shingles. Now the patient requires at least two people for assistance with transfers whereas before he only needed oen. They report he has a home palliative care nurse who is present daily who recommended to them that he come to the hospital for admission and placement. They deny any acute worsening of symptoms today but felt that his needs were reaching a point that they could not manage. They report that he has had recurrent falls for many weeks where he will slipped out of his chair but denies head strike or loss of consciousness. The patient recently saw his primary care doctor last week and they discussed placement but to their knowledge no steps were initiated. He denies any fevers, chills, cough, congestion, chest pain, shortness of breath, orthopnea, GI or symptoms. Of note, the patient did arrive to emergency department during time of high volume, acuity and prolonged emergency department waiting times. Critical pathways initiated from triage. On my evaluation the patient is chronically ill-appearing but no acute distress, afebrile stable vital signs. The patient exhibits generalized weakness without focal deficits. He has 1+ bilateral extremity pitting edema. EKG without overt acute ischemia. CXR negative for acute cardiopulmonary process. WBC and platelets within normal limits. H/H 9.8/29.5 without prior values for comparison since 2021. Chemistry without metabolic acidosis. BUN 58 similar to prior and creatinine 1.35 in setting of history of CKD. AST, nonspecific. CPK 1500, nonspecific in the setting of the patient's ongoing immobility. High- sensitivity troponin 30.8, within normal limits. BNP 239 without prior for comparison and consistent with the patient's hypervolemia on exam. TSH within normal. Given the patient's elevated CPK patient was administered 500 cc of normal saline but also 20 mg of IV Lasix to help initiate diuresis of for edema. [facility] for [facility]. Further management per admitting team. Triage Nursing notes reviewed and agree them. Prior/outside medical records reviewed Vital Signs: reviewed Differential diagnosis: Infection, dehydration, metabolic abnormality, hypo/hyperglycemia, electrolyte disturbance, anemia, hypoxia, cardiac sources, intracerebral event, toxicologic, neurologic, as well as other pathologies. ER treatment provided: See below. Diagnostics interpreted by me: ECG: Sinus rhythm with first-degree block, 70 bpm, no ectopy, right bundle branch block, no overt ST elevation or depression, QTc 404, cures 156. Cardiac Monitoring: An order for continuous cardiac monitoring was placed and demonstrated Sinus rhythm with first-degree block, 70 bpm, no ectopy. Laboratory studies: See below Imaging studies: See below Consultation(s): Case was discussed with Dr. Mcclain, [facility], who will evaluate the patient for admission. HPI: The patient is a pleasant 83-year-old gentleman with a past medical history of atrial fibrillation not on anticoagulation, CAD, gout, hypertension, hyperlipidemia, prostate cancer, type 2 diabetes, spinal stenosis with Ambulatory dysfunction with postlaminectomy syndrome of the lumbar sacral region AVELINA who presents to the emergency department via walk-in accompanied by family for admission and placement due to worsening generalized weakness and need for assistance at home the addition of progressive swelling in both legs over the past month after being taken off of his Lasix per their report. They report that the patient's baseline amatory dysfunction worsened a couple weeks ago in the setting of having a urinary tract infection as well as having shingles. Now the patient requires at least two people for assistance with transfers whereas before he only needed oen. They report he has a home palliative care nurse who is present daily who recommended to them that he come to the hospital for admission and placement. They deny any acute worsening of symptoms today but felt that his needs were reaching a point that they could not manage. They report that he has had recurrent falls for many weeks where he will slipped out of his chair but denies head strike or loss of consciousness. The patient recently saw his primary care doctor last week and they discussed placement but to their knowledge no steps were initiated. He denies any fevers, chills, cough, congestion, chest pain, shortness of breath, orthopnea, GI or symptoms. ROS: See above HPI for pertinent positives & negatives. A total of 10 systems reviewed and were otherwise negative. VITALS:See Below PHYSICAL EXAMINATION: GENERAL: Awake, alert, chronically ill-appearing, in no distress HENT: Normocephalic, atraumatic. Oropharynx unremarkable. EYES: Normal conjunctiva. Sclera non-icteric. NECK: Supple. No nuchal rigidity. FROM. No JVD. RESPIRATORY: Clear to auscultation. CARDIAC: Regular rate, normal rhythm. Extremities warm and well perfused. Pulses equal. ABDOMEN: Soft, non-distended. No tenderness to palpation. No rebound or guarding. No masses. RECTAL: Deferred. MUSCULOSKELETAL: Chest examination reveals no tenderness. The back is symm etrical on inspection without obvious abnormality. There is no CVA tenderness to palpation. No joint edema. LOWER EXTREMITIES: Calves are equal size bilaterally and non-tender. 1+ bilateral lower edema. No discoloration. NEURO: Generalized weakness without focal motor deficits. SKIN: No jaundice noted. Zak Le MD Past Med/Surg History Medical History Anemia Chronic Carotid artery stenosis s/p left CEA (2006) CKD (chronic kidney disease) Coronary artery disease CABG x2 (2006) Follows Dr. York ([place]) Diabetes mellitus, type 2 IDDM Dyslipidemia Frozen shoulder Gout History of atrial fibrillation s/p radiofrequency ablation (2011) Follows Dr. York ([place]) History of blood transfusion Post-op (2017) History of kidney stones Hx of atrial flutter 4:1 AV conduction s/p cardioversion x2 and subsequent successful RFA (2011) Hx of sleep apnea Refuses CPAP per records Uses oxygen 2L HS N/C Hypertension Myelomalacia of cervical cord Myofascial pain Obesity Postlaminectomy syndrome of lumbosacral region Presence of intrathecal pump Prostate cancer s/p radiation (2017) Spinal stenosis Weakness Surgical History H/O cardiac radiofrequency ablation atrial flutter converted to NSR History of cystoscopy + stent (08/06/18): MAC sedation at [facility] History of difficult intubation L2-S1 fusion 06/19/2014 - "poor visualization with MAC 4. Glidescope #4 utilized. Lg tongue with much soft tissue." History of lumbar fusion x 4 back surgeries History of open reduction and internal fixation (ORIF) procedure R/L ankles (1960s) History of surgery Morphine epidural pump trial (03/01/22): MAC at [facility]. No issues noted per post- op anesthesia progress note. S/P CABG x 2 FRNACO-LAD; LAD-D1 SUB BRANCH (2006) S/P carotid endarterectomy Left (2006) S/P insertion of intrathecal pump Family History Grandmother Diabetes Other Alzheimer disease Prostate cancer Social History Smoking Status: Current some day smoker Tobacco Type: Cigars Second Hand Exposure: No; Do You Dip or Chew Tobacco: No; Hx Alcohol Use: No Hx Substance Use: No Preferred Language: Latvian Communication Ability: Effective Communication Ability Comment: SLIGHT HEARD OF HEARING Visual Impairment: No Limitations Director Occupational Required: No Beliefs That Will Affect Care: None marital status: / Current Living Situation: Alone current occupational status: retired How many Children do You have: 4 Feels Safe at Home: Yes Safety Concerns: Feels Safe At This Time Assistive Devices: Glasses, Oxygen - at Night, Scooter/Electric Scooter and Wheelchair Assistive Devices Comment: "mauricio chair" Allergies Allergies Allergy/AdvReac Type Severity Reaction Status Date / Time cyclobenzaprine AdvReac Severe Disorientation, Verified 07/16/23 16:00 confusion Home Meds Home Medications Medication Instructions Recorded Confirmed carvedilol 25 mg tablet 25 mg PO BID 06/11/18 07/16/23 semaglutide 1 mg/dose (2 mg/1.5 2 mg subcut WK 01/10/19 07/16/23 mL) subcutaneous pen injector (Ozempic) fenofibrate nanocrystallized 145 145 mg PO QPM 05/22/19 07/16/23 mg tablet rosuvastatin 20 mg tablet 20 mg PO HS 05/22/19 07/16/23 finasteride 5 mg tablet 5 mg PO QAM 05/07/21 07/16/23 mineral oil 30 ml PO QPM 05/07/21 07/16/23 multivitamin 1 tab PO QAM 05/07/21 07/16/23 psyllium husk 3.4 gram/5.4 gram 1 tbsp PO QAM 05/07/21 07/16/23 oral powder (Metamucil) dapagliflozin propanediol 5 mg 5 mg PO DAILY 05/11/22 07/16/23 tablet (Farxiga) insulin degludec 100 unit/mL 34 unit subcut HS 05/11/22 07/16/23 subcutaneous solution (Tresiba U-100 Insulin) acetaminophen 650 mg 650 - 1,300 mg PO Q8H 12/02/22 07/16/23 tablet,extended release (Tylenol 8 Hour) duloxetine 20 mg capsule,delayed 20 mg PO DAILY 12/02/22 07/16/23 release gabapentin 300 mg capsule 300 mg PO TID 12/02/22 07/16/23 sennosides 8.6 mg tablet (Natural 8.6 mg PO DAILY 12/02/22 07/16/23 Senna Laxative) aspirin 81 mg tablet,delayed 81 mg PO QAM 12/21/22 07/16/23 release (Aspir-) pregabalin 50 mg capsule (Lyrica) 50 mg PO BID 07/16/23 07/16/23 valacyclovir 1 gram tablet 1,000 mg PO TID 07/16/23 07/16/23 (Valtrex) Previous Rx's Medication Instructions Recorded allopurinol 300 mg tablet 300 mg PO QAM #30 tabs 11/02/18 tamsulosin 0.4 mg capsule 0.4 mg PO HS #90 caps 06/10/20 MoRPHine PAIN PUMP 1 pump intrathecal UD #1 unit 04/27/22 naloxone 4 mg/actuation nasal 1 spray intranasal Q3M PRN opioid 04/27/22 spray (Narcan) overdose #2 ea Results & Data (ED) Vital Signs Vital Signs - 24 hr 07/16/23 13:36 07/16/23 14:58 07/16/23 15:08 Temperature 36.0 C L Temperature Source Temporal Artery Scan Pulse Rate 71 72 Pulse Rate [Finger] 69 Respiratory Rate 22 16 Respiratory Effort / Characteristics Non-Labored Spontaneous Respiratory Depth Normal Blood Pressure 124/63 Blood Pressure [Right Arm] 115/62 Blood Pressure Mean 83 Blood Pressure Mean [Right Arm] 79 Blood Pressure Position [Right Arm] Pulse Oximetry 98 97 Oxygen Delivery Method Room Air Room Air Sepsis Recent Fever Within 48 Hours No Sepsis New/Unexplained Change in Mental Status N/A Sepsis Action Taken by Nursing No Action Required 07/16/23 16:50 07/16/23 16:50 07/16/23 18:00 Temperature Temperature Source Pulse Rate 68 Pulse Rate [Finger] 68 74 Respiratory Rate 22 22 18 Respiratory Effort / Characteristics Non-Labored Respiratory Depth Normal Blood Pressure Blood Pressure [Right Arm] 146/74 H 161/78 H Blood Pressure Mean Blood Pressure Mean [Right Arm] 98 105 Blood Pressure Position [Right Arm] Sitting Pulse Oximetry 98 98 97 Oxygen Delivery Method Room Air Room Air Room Air Sepsis Recent Fever Within 48 Hours Sepsis New/Unexplained Change in Mental Status Sepsis Action Taken by Nursing Laboratory Data Attestation: I reviewed the patient's lab results. 07/16/23 13:50 07/16/23 13:50 Lab Results 07/16/23 07/16/23 07/16/23 Range/Units 13:50 13:50 13:50 WBC 7.08 (4.8-10.8) K/ul RBC 3.17 L (4.70-6.10) M/uL Hgb 9.8 L (14.0-18.0) g/dl Hct 29.5 L (42.0-52.0) % MCV 93.1 (80.0-100.0) fL MCH 30.9 (25.0-34.0) pg MCHC 33.2 (32.0-36.0) g/dL RDW Std Deviation 52.8 H (36.4-46.3) fL RDW Coeff of Poly 15.5 H (11.5-14.5) % Plt Count 351 (130-400) K/uL MPV 10.6 (9.4-12.4) fL Immature Gran % (Auto) 0.3 % Neut % (Auto) 76.0 % Lymph % (Auto) 13.8 % Pope % (Auto) 7.2 % Eos % (Auto) 2.4 % Baso % (Auto) 0.3 % Neut # (Auto) 5.38 (1.40-6.50) K/uL Lymph # (Auto) 0.98 L (1.20-3.40) K/uL Pope # (Auto) 0.51 (0.11-0.59) K/uL Eos # (Auto) 0.17 (0.00-0.50) K/uL Baso # (Auto) 0.02 (0.00-0.20) K/uL Immature Gran # (Auto) 0.02 (0.01-0.20) K/uL Sodium 139 (136-145) mmol/L Potassium 4.6 (3.5-5.1) mmol/L Chloride 109 H (98-107) mmol/L Carbon Dioxide 24 (21-32) mmol/L Anion Gap 6 (3-11) BUN 58 H (6-23) mg/dl Creatinine 1.35 (0.6-1.4) mg/dl Est Cr Clr Drug Dosing Not Reportable Est GFR ( Amer) 56.3 ml/min Est GFR (Non-Af Amer) 48.5 ml/min BUN/Creatinine Ratio 43.0 H (10-20) Glucose 197 H (70-99(Fasting)) mg/dl Calcium 9.3 (8.6-10.3) mg/dl Total Bilirubin 0.3 (0.2-1.0) mg/dl AST 60 H (13-39) U/L ALT 37 (7-52) U/L Alkaline Phosphatase 39 (34-104) U/L Total Creatine Kinase 1512 H (30-223) U/L Troponin I High Sens 13.8 (0-20) pg/ml B-Natriuretic Peptide 239 H (0-100) pg/ml Total Protein 6.4 (6.0-8.3) gm/dl Albumin 3.6 (3.4-5.0) gm/dl Globulin 2.8 (2.5-4.0) gm/dl Albumin/Globulin Ratio 1.3 (0.9-2) TSH 4.098 (0.300-4.500) uIu/ml Urine Color Urine Appearance (Clear) Urine pH (4.5-7.5) Ur Specific Lena (1.000-1.030) Urine Protein (Negative) Urine Glucose (UA) (Negative) Urine Ketones (Negative) Urine Blood (Negative) Urine Nitrite (Negative) Urine Bilirubin (Negative) Urine Urobilinogen (Negative) Ur Leukocyte Esterase (Negative) 07/16/23 Range/Units 17:10 WBC (4.8-10.8) K/ul RBC (4.70-6.10) M/uL Hgb (14.0-18.0) g/dl Hct (42.0-52.0) % MCV (80.0-100.0) fL MCH (25.0-34.0) pg MCHC (32.0-36.0) g/dL RDW Std Deviation (36.4-46.3) fL RDW Coeff of Poly (11.5-14.5) % Plt Count (130-400) K/uL MPV (9.4-12.4) fL Immature Gran % (Auto) % Neut % (Auto) % Lymph % (Auto) % Pope % (Auto) % Eos % (Auto) % Baso % (Auto) % Neut # (Auto) (1.40-6.50) K/uL Lymph # (Auto) (1.20-3.40) K/uL Pope # (Auto) (0.11-0.59) K/uL Eos # (Auto) (0.00-0.50) K/uL Baso # (Auto) (0.00-0.20) K/uL Immature Gran # (Auto) (0.01-0.20) K/uL Sodium (136-145) mmol/L Potassium (3.5-5.1) mmol/L Chloride (98-107) mmol/L Carbon Dioxide (21-32) mmol/L Anion Gap (3-11) BUN (6-23) mg/dl Creatinine (0.6-1.4) mg/dl Est Cr Clr Drug Dosing Est GFR ( Amer) ml/min Est GFR (Non-Af Amer) ml/min BUN/Creatinine Ratio (10-20) Glucose (70-99(Fasting)) mg/dl Calcium (8.6-10.3) mg/dl Total Bilirubin (0.2-1.0) mg/dl AST (13-39) U/L ALT (7-52) U/L Alkaline Phosphatase (34-104) U/L Total Creatine Kinase (30-223) U/L Troponin I High Sens (0-20) pg/ml B-Natriuretic Peptide (0-100) pg/ml Total Protein (6.0-8.3) gm/dl Albumin (3.4-5.0) gm/dl Globulin (2.5-4.0) gm/dl Albumin/Globulin Ratio (0.9-2) TSH (0.300-4.500) uIu/ml Urine Color Yellow Urine Appearance Clear (Clear) Urine pH 5.0 (4.5-7.5) Ur Specific Lena 1.023 (1.000-1.030) Urine Protein Negative (Negative) Urine Glucose (UA) 3+ H (Negative) Urine Ketones Negative (Negative) Urine Blood Negative (Negative) Urine Nitrite Negative (Negative) Urine Bilirubin Negative (Negative) Urine Urobilinogen Negative (Negative) Ur Leukocyte Esterase Negative (Negative) Administered Medications Discontinued Medications Furosemide (Furosemide Inj 20 Mg/2 Ml Vial) 20 mg IV ONE ONE Stop: 07/16/23 16:19 Last Admin: 07/16/23 16:55 Dose: 20 mg Documented By: TRINA Sodium Chloride (Nss) 500 mls @ 999 mls/hr IV .Q31M ONE Stop: 07/16/23 16:48 Last Infusion: 07/16/23 17:26 Dose: 0 mls/hr Documented By: Admin: 07/16/23 16:55 Dose: 999 mls/hr Documented By: TRINA Imaging Data Radiologist's Impression: Chest X-Ray 07/16/23 13:43 XR chest 1V portable CLINICAL HISTORY: weakness, fluid retention TECHNIQUE: Single frontal radiograph of the chest was obtained. Comparison: Comparison is made to chest radiograph 02/25/2022 FINDINGS: Median sternotomy wires are unchanged. Cardiomegaly is noted. The lungs are clear. No evidence of pleural effusion or pneumothorax. IMPRESSION: No acute chest disease. Cardiomegaly is noted. ACT 112: Negative or not required by law. Electronically signed by: Harrison Kent M.D. 07/16/2023 2:35 PM Discharge Plan Visit Data Chief Complaint: Edema To Extremity Stated Complaint: RETAINING FLUID, SHINGLES, NEEDS ASSISTANCE ED Provider: Zak Le Discharge Problem: Adult failure to thrive, Bilateral edema of lower extremity, Ambulatory dysfunction, Lumbar stenosis with neurogenic claudication, Elevated CPK Discharge Instructions Interventions: ED Discharge Assessment Last Done: 07/16/23 20:44
--- NOTE | 2023-07-16 14:37 | XRay Report ---
XR chest 1V portable CLINICAL HISTORY: weakness, fluid retention TECHNIQUE: Single frontal radiograph of the chest was obtained. Comparison: Comparison is made to chest radiograph 02/25/2022 FINDINGS: Median sternotomy wires are unchanged. Cardiomegaly is noted. The lungs are clear. No evidence of ple ural effusion or pneumothorax. IMPRESSION: No acute chest disease. Cardiomegaly is noted. ACT 112: Negative or not required by law. Electronically signed by: Harrison Kent M.D. 07/16/2023 2:35 PM
[2023-07-16 14:39] LABS: Alanine Aminotransferase 37 U/L (7-52); Albumin Globulin Ratio 1.3 (0.9-2); Albumin Level 3.6 gm/dl (3.4-5.0); Alkaline Phosphatase 39 U/L (34-104); Anion Gap 6 (3-11); Aspartate Aminotransferase 60 U/L (13-39); Bilirubin,Total 0.3 mg/dl (0.2-1.0); Blood Urea Nitrogen 58 mg/dl (6-23); Calcium 9.3 mg/dl (8.6-10.3); Carbon Dioxide 24 mmol/L (21-32); Chloride 109 mmol/L (98-107); Creatine Kinase 1512 U/L (30-223); Est GFR (African American) 56.3 ml/min; Est GFR (Non-African American) 48.5 ml/min; Globulin 2.8 gm/dl (2.5-4.0); Glucose 197 mg/dl (70-99(Fasting)); Potassium 4.6 mmol/L (3.5-5.1); Sodium 139 mmol/L (136-145); Total Protein 6.4 gm/dl (6.0-8.3)
[2023-07-16 14:46] LABS: Troponin I High Sensitivity 13.8 pg/ml (0-20)
[2023-07-16 14:55] LABS: Thyroid Stimulating Hormone 4.098 uIu/ml (0.300-4.500)
[2023-07-16] MEDS ORDERED: SODIUM CHLORIDE 0.9% 500 ML IV ONE (16:18)
[2023-07-16] MEDS ORDERED: FUROSEMIDE INJ 20 MG/2 ML VIAL IV ONE (16:18)
[2023-07-16 17:20] LABS: Appearance Urine Clear (Clear); Bilirubin Urine Negative (Negative); Blood Urine Negative (Negative); Color Urine Yellow; Glucose Urine UA 3+ (Negative); Ketones Urine Negative (Negative); Leukocyte Esterase Urine Negative (Negative); Nitrite Urine Negative (Negative); Protein Urine Negative (Negative); Specific Gravity Urine 1.023 (1.000-1.030); Urobilinogen Urine Negative (Negative)
--- NOTE | 2023-07-16 18:31 | History & Physical Report ---
Date of Service July 16, 2023 Assessment & Plan (1) Adult failure to thrive: (2) Bilateral edema of lower extremity: (3) Ambulatory dysfunction: (4) Elevated CPK: (5) S/P insertion of intrathecal pump: (6) Myelomalacia of cervical cord: (7) Cellulitis: Plan Pt is an 83yoM with PMHx significant for chronic pain with morphine pump, DMII and BPH admitted for placement per family, needing 3 people at home to help move him. Lower extremity edema Chest xray with noted cardiomegaly Echo ordered IV lasix in the ED, continue IV Lasix 40mg daily Consider cardiology consult based on results LLE swelling and erythema Doppler US LLE pending Started on Rocephin for possible infection Continue to monitor Freq falls Ambulatory Dysfunction Happening at home CK elevated With fluid overload at this time, on diuretics No IVF at this time, continue to monitor with AM labs PT/OT CM consult for placement needs in this situation Recent Shingles infection On Valtrex, continue for 2 more days Chronic Pain Has morphine pump managed by [facility] Pain management Consult placed to pain management for further pain management recs while in hosp ALso on gabapentin, lyrica (noted both are gabapentinoids), cymbalta, tylenol for pain. Continue bowel regimen for chronic narcotic use Constipation Continue home bowel regimen DMII Holding home meds Basal/Bolus insulin while hosp AM hemoglobin a1c ordered HLD continue home statin BPH/LUTS continue home meds Diet: Low sodium, DMII DVT prophylaxis: Lovenox CODE STATUS: DNR/DNI per POLST form family has present in the room Dispo: Family requesting placement. Complex CM consult placed. History of Present Illness Primary Care Provider: Jim Alvarez M.D. Pt is an 83yoM with PMHx significant for chronic pain with morphine pump, DMII and BPH admitted for placement per family, needing 3 people at home to help move him. History obtained from pt and son and daughter at bedside. They note that he was recently diagnosed with shingles and has been on medication for that. States that they have increasingly been noticing a decline, where he previously required 2 people to assist with movements and positional changes, and now he requires 3. They note that he was recently taken off of lasix due a concern about his kidney function but his leg swelling has icnreased since then. No Hx of blood clots. They note frequent falls at home now as well. Sometimes having to lay down for some time as there is no one to help him. They state that pt has a home health nurse who comes in to help and she recommended that he go to the ED for further evaluation. They note a Hx of chronic pain, multiple back surgeries for which he has a morphine pump in place. EPIC chart review shows outside records from [facility] that note that medications have been added recently to help with his pain. Allergies Allergy/AdvReac Type Severity Reaction Status Date / Time cyclobenzaprine AdvReac Severe Disorientation, Verified 07/16/23 16:00 confusion Home Medications Medication Instructions Recorded Confirmed Type carvedilol 25 mg tablet 25 mg PO BID 06/11/18 07/16/23 History allopurinol 300 mg tablet 300 mg PO QAM #30 tabs 11/02/18 07/16/23 Rx semaglutide 1 mg/dose (2 mg/1.5 2 mg subcut WK 01/10/19 07/16/23 History mL) subcutaneous pen injector ([employer]It) fenofibrate nanocrystallized 145 145 mg PO QPM 05/22/19 07/16/23 History mg tablet rosuvastatin 20 mg tablet 20 mg PO HS 05/22/19 07/16/23 History tamsulosin 0.4 mg capsule 0.4 mg PO HS #90 caps 06/10/20 07/16/23 Rx finasteride 5 mg tablet 5 mg PO QAM 05/07/21 07/16/23 History mineral oil 30 ml PO QPM 05/07/21 07/16/23 History multivitamin 1 tab PO QAM 05/07/21 07/16/23 History psyllium husk 3.4 gram/5.4 gram 1 tbsp PO QAM 05/07/21 07/16/23 History oral powder (Metamucil) MoRPHine PAIN PUMP 1 pump intrathecal UD #1 unit 04/27/22 07/16/23 Rx naloxone 4 mg/actuation nasal 1 spray intranasal Q3M PRN opioid 04/27/22 07/16/23 Rx spray (Narcan) overdose #2 ea dapagliflozin propanediol 5 mg 5 mg PO DAILY 05/11/22 07/16/23 History tablet (Farxiga) insulin degludec 100 unit/mL 34 unit subcut HS 05/11/22 07/16/23 History subcutaneous solution (Tresiba U-100 Insulin) acetaminophen 650 mg 650 - 1,300 mg PO Q8H 12/02/22 07/16/23 History tablet,extended release (Tylenol 8 Hour) duloxetine 20 mg capsule,delayed 20 mg PO DAILY 12/02/22 07/16/23 History release gabapentin 300 mg capsule 300 mg PO TID 12/02/22 07/16/23 History sennosides 8.6 mg tablet (Natural 8.6 mg PO DAILY 12/02/22 07/16/23 History Senna Laxative) aspirin 81 mg tablet,delayed 81 mg PO QAM 12/21/22 07/16/23 History release (Aspir-) pregabalin 50 mg capsule (Lyrica) 50 mg PO BID 07/16/23 07/16/23 History valacyclovir 1 gram tablet 1,000 mg PO TID 07/16/23 07/16/23 History (Valtrex) Past Med/Surg History Medical History Anemia Chronic Carotid artery stenosis s/p left CEA (2006) CKD (chronic kidney disease) Coronary artery disease CABG x2 (2006) Follows Dr. York ([place]) Diabetes mellitus, type 2 IDDM Dyslipidemia Frozen shoulder Gout History of atrial fibrillation s/p radiofrequency ablation (2011) Follows Dr. York ([place]) History of blood transfusion Post-op (2017) History of kidney stones Hx of atrial flutter 4:1 AV conduction s/p cardioversion x2 and subsequent successful RFA (2011) Hx of sleep apnea Refuses CPAP per records Uses oxygen 2L HS N/C Hypertension Myelomalacia of cervical cord Myofascial pain Obesity Postlaminectomy syndrome of lumbosacral region Presence of intrathecal pump Prostate cancer s/p radiation (2016) Spinal stenosis Weakness Surgical History H/O cardiac radiofrequency ablation atrial flutter converted to NSR History of cystoscopy + stent (08/06/18): MAC sedation at [facility] History of difficult intubation L2-S1 fusion 06/19/2014 - "poor visualization with MAC 4. Glidescope #4 utilized. Lg tongue with much soft tissue." History of lumbar fusion x 4 back surgeries History of open reduction and internal fixation (ORIF) procedure R/L ankles (1960s) History of surgery Morphine epidural pump trial (03/01/22): MAC at [facility]. No issues noted per post- op anesthesia progress note. S/P CABG x 2 FRANCO-LAD; LAD-D1 SUB BRANCH (2006) S/P carotid endarterectomy Left (2006) S/P insertion of intrathecal pump Family History Grandmother Diabetes Other Alzheimer disease Prostate cancer Social History Smoking Status: Current some day smoker Tobacco Type: Cigars Second Hand Exposure: No; Do You Dip or Chew Tobacco: No; Hx Alcohol Use: No Hx Substance Use: No Preferred Language: Danish Communication Ability: Effective Communication Ability Comment: SLIGHT HEARD OF HEARING Visual Impairment: No Limitations Millstone Cleaner Required: No Beliefs That Will Affect Care: None marital status: / Current Living Situation: Alone current occupational status: retired How many Children do You have: 4 Feels Safe at Home: Yes Safety Concerns: Feels Safe At This Time Assistive Devices: Hospital Bed, Lift Chair, Oxygen - at Night and Scooter/Electric Scooter Assistive Devices Comment: "mauricio chair" Review of Systems Review of Systems: All systems reviewed & are unremarkable except as noted in Subjective Physical Exam Physical Exam: General: Alert, oriented. No acute distress Skin: noted bruising on anterior chest Psych: Appropriate mood and affect Neuro: difficulty with movement in general and hands HEENT: NC/AT Chest: Nontender to palpation. CV: RR Resp: Breath sounds clear bilaterally, no increased effort of breathing. Abdomen: Soft, nontender Extremities: edema in lower extremities bilaterally, left leg painful and red as well Results & Data Results & Data Vital Signs (Past 12 Hours) Vital Signs Temp Pulse Pulse Resp BP BP Pulse Ox 07/16/23 18:00 74 18 161/78 H 97 07/16/23 16:50 68 22 146/74 H 98 07/16/23 16:50 68 22 98 07/16/23 15:08 72 07/16/23 14:58 69 16 115/62 97 07/16/23 13:36 36.0 C L 71 22 124/63 98 O2 Del Method 07/16/23 18:00 Room Air 07/16/23 16:50 Room Air 07/16/23 16:50 Room Air 07/16/23 15:08 07/16/23 14:58 Room Air 07/16/23 13:36 Room Air
[2023-07-16] MEDS ORDERED: NALOXONE NASAL SPRAY 4 MG ER HOMEPACK PRN (19:03)
--- NOTE | 2023-07-16 19:40 | Ultrasound Report ---
US venous doppler LE LT CLINICAL HISTORY: Lower extremity swelling, pain and redness TECHNIQUE: Left lower extremity real-time compression venous ultrasound with Color Doppler imaging. U tilizing real-time ultrasonic imaging multiple real time high-resolution ultrasonic images with compr ession and noncompression maneuvers of the deep venous system in addition to color doppler imaging we re performed from the common femoral vein through the proximal calf veins. COMPARISON: Comparison is made to lower extremity ultrasound 10/22/2018 FINDINGS/IMPRESSION: Currently there is normal compressibility of the deep venous system from the common femoral vein thro ugh the proximal calf veins. The popliteal vein was not visualized, exam is limited by patient posit ioning and movement. ACT 112: Negative or not required by law. Electronically signed by: Harrison Kent M.D. 07/16/2023 7:38 PM
[2023-07-16] MEDS ORDERED: GLUCOSE 10 TAB/TUBE PO PRN (20:45)
[2023-07-16] MEDS ORDERED: DEXTROSE 50% 50 ML SYRINGE IV PRN (20:45)
[2023-07-16] MEDS ORDERED: GLUCOSE 40% GEL 15 GM TUBE PO PRN (20:45)
[2023-07-16] MEDS ORDERED: GLUCAGON FOR INJ 1 MG VIAL SQ PRN (20:45)
[2023-07-16] MEDS ORDERED: LANTUS PER UNIT CHARGE SQ SCH (21:00)
[2023-07-16] MEDS ORDERED: KONDREMUL 30ML UDP PO SCH (21:00)
[2023-07-16] MEDS ORDERED: NALOXONE HCL 0.4 MG/1 ML VIAL/CARP IV PRN (21:19)
[2023-07-16] MEDS: carvediloL 25 MG TAB PO SCH (22:10)
[2023-07-16] MEDS: FENOFIBRATE NANOCRYSTALLIZED 145 MG TABLET PO SCH (22:10)
[2023-07-16] MEDS: GABAPENTIN 300 MG CAP PO SCH (22:10)
[2023-07-16] MEDS: ROSUVASTATIN CALCIUM 20 MG TAB PO SCH (22:11)
[2023-07-16] MEDS: TAMSULOSIN HCL 0.4 MG CAP PO SCH (22:11)
[2023-07-16] MEDS: valACYclovir HCL 500 MG TABLET PO SCH (22:11)
[2023-07-16] MEDS: MINERAL OIL 30 ML UDC PO SCH ×2 (22:12→22:43)
[2023-07-16] MEDS: ENOXAPARIN INJ 40 MG/0.4 ML SYR SQ SCH (22:12)
[2023-07-16] MEDS: PREGABALIN 50 MG CAP PO SCH (22:13)
[2023-07-16] MEDS: cefTRIAXone SODIUM 2,000 MG in DEXTROSE 5 % MINI-B 50 ML IV SCH (22:13)
[2023-07-16] MEDS: INSULIN ASPART PER UNIT CHARGE SC SCH (22:36)
[2023-07-17 05:38] LABS: Albumin Globulin Ratio 1.3 (0.9-2); Albumin Level 3.4 gm/dl (3.4-5.0); BUN Creatinine Ratio 39.2 (10-20); Bilirubin,Total 0.3 mg/dl (0.2-1.0); Calcium 9.1 mg/dl (8.6-10.3); Creatinine Clr Calc Pharmacy 56.2 ml/min; Est GFR (African American) 58.9 ml/min; Est GFR (Non-African American) 50.8 ml/min; Globulin 2.6 gm/dl (2.5-4.0); Magnesium 2.1 mg/dl (1.7-2.4); Phosphorus 2.7 mg/dl (2.5-4.9); Potassium 4.1 mmol/L (3.5-5.1)
[2023-07-17 05:46] LABS: Basophils # (auto) 0.04 K/uL (0.00-0.20); Basophils % (auto) 0.7 %; Eosinophils # (auto) 0.12 K/uL (0.00-0.50); Hematocrit (blood only) 26.8 % (42.0-52.0); Hemoglobin 8.5 g/dl (14.0-18.0); Immature Granulocytes # (auto) 0.02 K/uL (0.01-0.20); Immature Granulocytes % (auto) 0.3 %; Lymphocytes # (auto) 0.96 K/uL (1.20-3.40); Lymphocytes % (auto) 16.1 %; Mean Corpuscular Hemoglobin 29.8 pg (25.0-34.0); Mean Corpuscular Hgb Conc 31.7 g/dL (32.0-36.0); Mean Platelet Volume 10.4 fL (9.4-12.4); Monocytes # (auto) 0.56 K/uL (0.11-0.59); Monocytes % (auto) 9.4 %; Neutrophils # (auto) 4.26 K/uL (1.40-6.50); Neutrophils % (auto) 71.5 %; Platelet Count 335 K/uL (130-400); RDW Coefficient of Variation 15.6 % (11.5-14.5); RDW Standard Deviation 53.2 fL (36.4-46.3); Red Blood Count 2.85 M/uL (4.70-6.10); White Blood Count 5.96 K/ul (4.8-10.8)
[2023-07-17 07:28] LABS: Estimated Average Glucose 166 mg/dl; Hemoglobin A1C 7.4 % (4.5-5.6)
[2023-07-17] MEDS: CARBOHYDRATES FOR HYPOGLYCEMIA PO PRN (07:29)
[2023-07-17] MEDS: MULTIVITAMIN TAB PO SCH (08:48)
[2023-07-17] MEDS: GABAPENTIN 300 MG CAP PO SCH ×3 (08:48→20:27)
[2023-07-17] MEDS: FUROSEMIDE 40 MG/4 ML VIAL IV SCH (08:48)
[2023-07-17] MEDS: FINASTERIDE 5 MG TAB PO SCH (08:48)
[2023-07-17] MEDS: SENNA 8.6 MG TAB PO SCH (08:48)
[2023-07-17] MEDS: allopurinoL 300 MG TAB PO SCH (08:48)
[2023-07-17] MEDS: ASPIRIN 81 MG ECTAB PO SCH (08:48)
[2023-07-17] MEDS: carvediloL 25 MG TAB PO SCH ×2 (08:48→20:27)
[2023-07-17] MEDS: valACYclovir HCL 500 MG TABLET PO SCH ×3 (08:48→20:28)
[2023-07-17] MEDS: DULoxetine HCL 20 MG CAP PO SCH (08:48)
[2023-07-17] MEDS: PSYLLIUM or GUAR GUM FIBER POWDER PACKET PO SCH (08:49)
[2023-07-17] MEDS ORDERED: LANTUS PER UNIT CHARGE SQ SCH ×2 (09:00→21:00)
[2023-07-17] MEDS: PREGABALIN 50 MG CAP PO SCH ×2 (09:00→20:27)
[2023-07-17] MEDS: INSULIN ASPART PER UNIT CHARGE SC SCH ×4 (09:01→20:27)
--- NOTE | 2023-07-17 12:55 | Pain Management Consultation ---
Date of Consultation July 17, 2023 Assessment & Plan (1) Presence of intrathecal pump: (2) Lumbar stenosis with neurogenic claudication: (3) Morbid obesity: Plan 1. No changes made to intrathecal pump (continues to run morphine with a concentration of 2 mg/mL and a daily dose of 0.24 mg/day). 2. Patient already has a refill appointment scheduled with [facility] pain management. No changes needed. 3. Thank you for this consultation. Will see him back in the office as scheduled. History of Present Illness Attending Physician: Laura Mcclain MD Allergies Allergy/AdvReac Type Severity Reaction Status Date / Time cyclobenzaprine AdvReac Severe Disorientation, Verified 07/16/23 16:00 confusion Home Medications Medication Instructions Recorded Confirmed Type carvedilol 25 mg tablet 25 mg PO BID 06/11/18 07/16/23 History allopurinol 300 mg tablet 300 mg PO QAM #30 tabs 11/02/18 07/16/23 Rx semaglutide 1 mg/dose (2 mg/1.5 2 mg subcut WK 01/10/19 07/16/23 History mL) subcutaneous pen injector (Ozempic) fenofibrate nanocrystallized 145 145 mg PO QPM 05/22/19 07/16/23 History mg tablet rosuvastatin 20 mg tablet 20 mg PO HS 05/22/19 07/16/23 History tamsulosin 0.4 mg capsule 0.4 mg PO HS #90 caps 06/10/20 07/16/23 Rx finasteride 5 mg tablet 5 mg PO QAM 05/07/21 07/16/23 History mineral oil 30 ml PO QPM 05/07/21 07/16/23 History multivitamin 1 tab PO QAM 05/07/21 07/16/23 History psyllium husk 3.4 gram/5.4 gram 1 tbsp PO QAM 05/07/21 07/16/23 History oral powder (Metamucil) MoRPHine PAIN PUMP 1 pump intrathecal UD #1 unit 04/27/22 07/16/23 Rx naloxone 4 mg/actuation nasal 1 spray intranasal Q3M PRN opioid 04/27/22 07/16/23 Rx spray (Narcan) overdose #2 ea dapagliflozin propanediol 5 mg 5 mg PO DAILY 05/11/22 07/16/23 History tablet (Farxiga) insulin degludec 100 unit/mL 34 unit subcut HS 05/11/22 07/16/23 History subcutaneous solution (Tresiba U-100 Insulin) acetaminophen 650 mg 650 - 1,300 mg PO Q8H 12/02/22 07/16/23 History tablet,extended release (Tylenol 8 Hour) duloxetine 20 mg capsule,delayed 20 mg PO DAILY 12/02/22 07/16/23 History release gabapentin 300 mg capsule 300 mg PO TID 12/02/22 07/16/23 History sennosides 8.6 mg tablet (Natural 8.6 mg PO DAILY 12/02/22 07/16/23 History Senna Laxative) aspirin 81 mg tablet,delayed 81 mg PO QAM 12/21/22 07/16/23 History release (Aspir-) pregabalin 50 mg capsule (Lyrica) 50 mg PO BID 07/16/23 07/16/23 History valacyclovir 1 gram tablet 1,000 mg PO TID 07/16/23 07/16/23 History (Valtrex) Pain History Chief Complaint Chief Complaint: 83-year-old male that is known to the [facility] pain clinic with chronic lumbar pain due to an extensive history of lumbar spinal surgeries. Patient has history of implantation of intrathecal pump and catheter delivery system on 04/26/2022. Pain is currently controlled to the patient's satisfaction. He requests no changes. 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 Pain currently is 0/10. He has no further constitutional complaints. Pain Intensity [facility] Combined Pain Scale: 0 - No Pain Patient History Medical History Anemia Chronic Carotid artery stenosis s/p left CEA (2006) CKD (chronic kidney disease) Coronary artery disease CABG x2 (2006) Follows Dr. York ([place]) Diabetes mellitus, type 2 IDDM Dyslipidemia Frozen shoulder Gout History of atrial fibrillation s/p radiofrequency ablation (2011) Follows Dr. York ([place]) History of blood transfusion Post-op (2017) History of kidney stones Hx of atrial flutter 4:1 AV conduction s/p cardioversion x2 and subsequent successful RFA (2011) Hx of sleep apnea Refuses CPAP per records Uses oxygen 2L HS N/C Hypertension Myelomalacia of cervical cord Myofascial pain Obesity Postlaminectomy syndrome of lumbosacral region Presence of intrathecal pump Prostate cancer s/p radiation (2017) Spinal stenosis Weakness Surgical History H/O cardiac radiofrequency ablation atrial flutter converted to NSR History of cystoscopy + stent (08/06/18): MAC sedation at [facility] History of difficult intubation L2-S1 fusion 06/19/2014 - "poor visualization with MAC 4. Glidescope #4 utilized. Lg tongue with much soft tissue." History of lumbar fusion x 4 back surgeries History of open reduction and internal fixation (ORIF) procedure R/L ankles (1960s) History of surgery Morphine epidural pump trial (03/01/22): MAC at [facility]. No issues noted per post- op anesthesia progress note. S/P CABG x 2 FRANCO-LAD; LAD-D1 SUB BRANCH (2006) S/P carotid endarterectomy Left (2006) S/P insertion of intrathecal pump Family History Grandmother Diabetes Other Alzheimer disease Prostate cancer Social History Smoking Status: Current some day smoker Tobacco Type: Cigars Second Hand Exposure: No; Do You Dip or Chew Tobacco: No; Hx Alcohol Use: No Hx Substance Use: No Preferred Language: Dutch Communication Ability: Effective Communication Ability Comment: SLIGHT HEARD OF HEARING Visual Impairment: No Limitations Grant Coordinator Required: No Beliefs That Will Affect Care: None marital status: / Current Living Situation: Alone current occupational status: retired How many Children do You have: 4 Feels Safe at Home: Yes Safety Concerns: Feels Safe At This Time Assistive Devices: Hospital Bed, Lift Chair, Oxygen - at Night and Scooter/Electric Scooter Assistive Devices Comment: "mauricio chair" Physical Exam Physical Exam: GENERAL: Speech and cognition is intact. Mood and affect is appropriate. Does not appear in acute distress. BACK: Thoracolumbar incision is well healed. ABDOMEN: Intrathecal pump is located in the left lower abdomen. No mobility of the pump. Incision appears well healed.
--- NOTE | 2023-07-17 17:27 | Hospitalist Progress Note ---
Date of Service July 17, 2023 Assessment & Plan (1) Adult failure to thrive: (2) Bilateral edema of lower extremity: (3) Ambulatory dysfunction: (4) Elevated CPK: (5) S/P insertion of intrathecal pump: (6) Myelomalacia of cervical cord: (7) Cellulitis: Plan Pt is an 83yoM with PMHx significant for chronic pain with morphine pump, DMII and BPH admitted for placement per family, needing 3 people at home to help move him. Lower extremity edema Chest xray with noted cardiomegaly Echo ordered- normal EF, dilated aortic root IV lasix in the ED, continue IV Lasix 40mg daily Consider cardiology consult based on results LLE swelling and erythema Doppler US LLE with low suspicion for clot Started on Rocephin for possible infection, continue Continue to monitor Freq falls Ambulatory Dysfunction Happening at home CK elevated, downtrended, not currently on IVF due to being on diuretics PT/OT CM consult for placement needs in this situation HTN On coreg 25mg BID Lisinopril 10mg added Recent Shingles infection On Valtrex, continue for 2 more days Chronic Pain Has morphine pump managed by [facility] [place] [place] Pain management Consult placed to pain management for further pain management recs while in hosp Also on gabapentin, lyrica (noted both are gabapentinoids), cymbalta, tylenol for pain. Continue bowel regimen for chronic narcotic use- scheduled sennokot and metamucil, miralax ordered as pt on a pump Constipation Continue bowel regimen for chronic narcotic use- scheduled sennokot and metamucil, miralax ordered as pt on a pump DMII Hgba1c of 7.4 Holding home meds Basal/Bolus insulin while hospitalized HLD continue home statin HTN On coreg 25mg BID Lisinopril 10mg added BPH/LUTS continue home meds Diet: Low sodium, DMII DVT prophylaxis: Lovenox CODE STATUS: DNR/DNI per POLST form family has present in the room Dispo: Family requesting placement. Complex CM consult placed. Admission and Anticipated Discharge Date Admission Date: July 16, 2023 Subjective Pt seen in the AM. Laying in bed, no family at bedside. Communicated results to him about venous doppler. Denied SOB, chest pain or other concerns. Review of Systems Review of Systems: All systems reviewed & are unremarkable except as noted in Subjective Physical Exam Physical Exam: General: Alert, oriented. No acute distress Skin: noted bruising on anterior chest Psych: Appropriate mood and affect Neuro: difficulty with movement in general and hands HEENT: NC/AT Chest: Nontender to palpation. CV: RR Resp: Breath sounds clear bilaterally, no increased effort of breathing. Abdomen: Soft, nontender Extremities: edema in lower extremities bilaterally, left leg painful and red as well Results & Data Results & Data Vital Signs (Past 12 Hours) Vital Signs Temp Pulse Pulse Resp BP Pulse Ox O2 Del Method 07/17/23 15:13 37.0 C 79 16 163/72 H 96 Room Air 07/17/23 14:10 78 07/17/23 06:00 80 07/17/23 11:45 36.6 C 81 16 128/78 96 Room Air 07/17/23 05:51 37.0 C 78 18 155/68 H 94 Room Air
[2023-07-17] MEDS ORDERED: POLYETHYLENE (MIRALAX) 17 GM PACK PO PRN (17:28)
[2023-07-17] MEDS: LANTUS PER UNIT CHARGE SQ SCH (17:28)
[2023-07-17] MEDS: POLYETHYLENE (MIRALAX) 17 GM PACK PO SCH (18:16)
[2023-07-17] MEDS: FENOFIBRATE NANOCRYSTALLIZED 145 MG TABLET PO SCH (20:27)
[2023-07-17] MEDS: lisinopril 10 MG TAB PO SCH (20:27)
[2023-07-17] MEDS: TAMSULOSIN HCL 0.4 MG CAP PO SCH (20:28)
[2023-07-17] MEDS: ROSUVASTATIN CALCIUM 20 MG TAB PO SCH (20:28)
[2023-07-17] MEDS: ENOXAPARIN INJ 40 MG/0.4 ML SYR SQ SCH (20:28)
[2023-07-17] MEDS ORDERED: cefTRIAXone SODIUM 2,000 MG in DEXTROSE 5% MINI-B 100 ML IV SCH (22:00)
[2023-07-18 05:53] LABS: Basophils # (auto) 0.03 K/uL (0.00-0.20); Basophils % (auto) 0.4 %; Eosinophils # (auto) 0.16 K/uL (0.00-0.50); Eosinophils % (auto) 2.3 %; Hemoglobin 8.9 g/dl (14.0-18.0); Immature Granulocytes # (auto) 0.02 K/uL (0.01-0.20); Immature Granulocytes % (auto) 0.3 %; Mean Corpuscular Hemoglobin 30.6 pg (25.0-34.0); Mean Corpuscular Volume 92.8 fL (80.0-100.0); Mean Platelet Volume 10.4 fL (9.4-12.4); Monocytes # (auto) 0.76 K/uL (0.11-0.59); Monocytes % (auto) 10.7 %; Neutrophils % (auto) 69.3 %; Platelet Count 301 K/uL (130-400); RDW Coefficient of Variation 15.7 % (11.5-14.5); RDW Standard Deviation 53.1 fL (36.4-46.3); Red Blood Count 2.91 M/uL (4.70-6.10); White Blood Count 7.07 K/ul (4.8-10.8)
[2023-07-18 06:08] LABS: Albumin Globulin Ratio 1.2 (0.9-2); Albumin Level 3.3 gm/dl (3.4-5.0); Bilirubin,Total 0.3 mg/dl (0.2-1.0); Calcium 9.3 mg/dl (8.6-10.3); Creatinine Clr Calc Pharmacy 50.7 ml/min; Est GFR (Non-African American) 44.9 ml/min; Globulin 2.7 gm/dl (2.5-4.0); Phosphorus 3.1 mg/dl (2.5-4.9); Potassium 4.5 mmol/L (3.5-5.1)
--- NOTE | 2023-07-18 06:18 | Electrocardiogram Report ---
Test Reason : Blood Pressure : / mmHG Vent. Rate : 070 BPM Atrial Rate : 070 BPM P-R Int : 248 ms QRS Dur : 156 ms QT Int : 458 ms P-R-T Axes : 112 -32 -16 degrees QTc Int : 494 ms Sinus rhythm with 1st degree A-V block Left axis deviation Right bundle branch block Abnormal ECG When compared with ECG of 25-FEB-2022 15:59, No significant change was found Confirmed by Jose Abdullahi ([id number]) on 07/18/2023 6:18:05 AM Referred By: Confirmed By:Jose Abdullahi
[2023-07-18] MEDS: CARBOHYDRATES FOR HYPOGLYCEMIA PO PRN (08:20)
[2023-07-18] MEDS: LANTUS PER UNIT CHARGE SQ SCH (09:21)
[2023-07-18] MEDS: INSULIN ASPART PER UNIT CHARGE SC SCH ×4 (09:55→20:52)
[2023-07-18] MEDS: lisinopril 10 MG TAB PO SCH (09:56)
[2023-07-18] MEDS: valACYclovir HCL 500 MG TABLET PO SCH ×3 (09:56→20:50)
[2023-07-18] MEDS: ASPIRIN 81 MG ECTAB PO SCH (09:57)
[2023-07-18] MEDS: GABAPENTIN 300 MG CAP PO SCH ×3 (09:57→20:50)
[2023-07-18] MEDS: carvediloL 25 MG TAB PO SCH ×2 (09:57→20:49)
[2023-07-18] MEDS: MULTIVITAMIN TAB PO SCH (09:58)
[2023-07-18] MEDS: SENNA 8.6 MG TAB PO SCH (09:58)
[2023-07-18] MEDS: FINASTERIDE 5 MG TAB PO SCH (09:58)
[2023-07-18] MEDS: allopurinoL 300 MG TAB PO SCH (09:58)
[2023-07-18] MEDS: POLYETHYLENE (MIRALAX) 17 GM PACK PO SCH (09:59)
[2023-07-18] MEDS: DULoxetine HCL 20 MG CAP PO SCH (09:59)
[2023-07-18] MEDS: PSYLLIUM or GUAR GUM FIBER POWDER PACKET PO SCH (09:59)
[2023-07-18] MEDS: PREGABALIN 50 MG CAP PO SCH ×2 (10:02→20:52)
[2023-07-18] MEDS: FUROSEMIDE 40 MG/4 ML VIAL IV SCH (10:02)
--- NOTE | 2023-07-18 16:57 | Hospitalist Progress Note ---
Date of Service July 18, 2023 Assessment & Plan (1) Adult failure to thrive: (2) Bilateral edema of lower extremity: (3) Ambulatory dysfunction: (4) Elevated CPK: (5) S/P insertion of intrathecal pump: (6) Myelomalacia of cervical cord: (7) Cellulitis: Plan Pt is an 83yoM with PMHx significant for chronic pain with morphine pump, DMII and BPH admitted for placement per family, needing 3 people at home to help move him. Lower extremity edema Pt with significant lower extremity edema Chest xray with noted cardiomegaly Echo ordered- normal EF, dilated aortic root IV lasix in the ED, continue IV Lasix 40mg daily- held currently as pt with new SRAVANI Consider cardiology consult based on results SRAVANI Noted on 07/18 Will hold next Lasix dose (last dose in AM of 07/18) and home lisinopril Consider re-start of Lasix based on need for diuresis LLE swelling and erythema Doppler US LLE with low suspicion for clot Started on Rocephin for possible infection, continue Continue to monitor DMII Hgba1c of 7.4 Holding home meds Basal/Bolus insulin while hospitalized- noted that pt hypoglycemic in the AM. Holding basal insulin Freq falls Ambulatory Dysfunction Freq falls happening at home, pt with bruising on chest CK elevated, downtrended, not currently on IVF due to being on diuretics PT/OT CM consult for placement needs in this situation HTN On coreg 25mg BID Lisinopril held- continue to monitor BP Recent Shingles infection On Valtrex, continue for 2 more days Completed treatment Chronic Pain Has morphine pump managed by [facility] Pain management Consult placed to pain management for further pain management recs while in hosp Also on gabapentin, lyrica (noted both are gabapentinoids), cymbalta, tylenol for pain. Continue bowel regimen for chronic narcotic use- scheduled sennokot and metamucil, miralax ordered as pt on a pump Pain Consult placed on 07/16 Constipation Continue bowel regimen for chronic narcotic use -scheduled sennokot and metamucil, miralax as pt on a morphine pump HLD continue home statin BPH/LUTS continue home meds Diet: Low sodium, DMII DVT prophylaxis: Lovenox CODE STATUS: DNR/DNI per POLST form family has present in the room Dispo: Family requesting placement. Complex CM consult placed. Admission and Anticipated Discharge Date Admission Date: July 16, 2023 Subjective Pt seen in the AM. Laying in bed, no family at bedside. Denied SOB, chest pain but does note his pain kicks in occasionally even with his pain pump. Review of Systems Review of Systems: All systems reviewed & are unremarkable except as noted in Subjective Physical Exam Physical Exam: General: Alert, oriented. No acute distress Skin: noted bruising on anterior chest Psych: Appropriate mood and affect Neuro: difficulty with movement in general and hands HEENT: NC/AT Chest: Nontender to palpation. CV: RR Resp: Breath sounds clear bilaterally, no increased effort of breathing. Abdomen: Soft, nontender Extremities: edema in lower extremities bilaterally, left leg painful and red as well Results & Data Results & Data Vital Signs (Past 12 Hours) Vital Signs Temp Pulse Pulse Resp BP Pulse Ox O2 Del Method 07/18/23 16:42 36.4 C L 77 14 124/66 94 Room Air 07/18/23 15:15 72 07/18/23 08:00 72 07/18/23 11:20 36.6 C 76 14 125/65 38 L Room Air 07/18/23 07:58 36.4 C L 71 12 130/70 94 Room Air
[2023-07-18] MEDS: MINERAL OIL 30 ML UDC PO SCH (20:49)
[2023-07-18] MEDS: FENOFIBRATE NANOCRYSTALLIZED 145 MG TABLET PO SCH (20:50)
[2023-07-18] MEDS: ROSUVASTATIN CALCIUM 20 MG TAB PO SCH (20:50)
[2023-07-18] MEDS: TAMSULOSIN HCL 0.4 MG CAP PO SCH (20:50)
[2023-07-18] MEDS: cefTRIAXone SODIUM 2,000 MG in DEXTROSE 5 % MINI-B 50 ML IV SCH (20:52)
[2023-07-18] MEDS: ENOXAPARIN INJ 40 MG/0.4 ML SYR SQ SCH (20:52)
[2023-07-19] MEDS ORDERED: SODIUM CHLORIDE 0.9% 1,000 ML IV SCH (04:00)
[2023-07-19 05:42] LABS: Albumin Globulin Ratio 1.2 (0.9-2); Albumin Level 3.3 gm/dl (3.4-5.0); Bilirubin,Total 0.3 mg/dl (0.2-1.0); Calcium 9.3 mg/dl (8.6-10.3); Creatinine Clr Calc Pharmacy 34.8 ml/min; Est GFR (Non-African American) 28.5 ml/min; Globulin 2.7 gm/dl (2.5-4.0); Phosphorus 3.7 mg/dl (2.5-4.9); Potassium 4.8 mmol/L (3.5-5.1)
[2023-07-19 05:50] LABS: Hematocrit (blood only) 27.3 % (42.0-52.0); Hemoglobin 8.8 g/dl (14.0-18.0); Mean Corpuscular Hemoglobin 29.8 pg (25.0-34.0); Mean Corpuscular Hgb Conc 32.2 g/dL (32.0-36.0); Mean Corpuscular Volume 92.5 fL (80.0-100.0); Red Blood Count 2.95 M/uL (4.70-6.10); White Blood Count 6.84 K/ul (4.8-10.8)
[2023-07-19 05:51] LABS: Basophils # (auto) 0.04 K/uL (0.00-0.20); Basophils % (auto) 0.6 %; Eosinophils # (auto) 0.22 K/uL (0.00-0.50); Eosinophils % (auto) 3.2 %; Immature Granulocytes # (auto) 0.02 K/uL (0.01-0.20); Immature Granulocytes % (auto) 0.3 %; Lymphocytes # (auto) 1.11 K/uL (1.20-3.40); Lymphocytes % (auto) 16.2 %; Mean Platelet Volume 10.5 fL (9.4-12.4); Monocytes # (auto) 0.75 K/uL (0.11-0.59); Neutrophils % (auto) 68.7 %; Platelet Count 311 K/uL (130-400); RDW Coefficient of Variation 15.5 % (11.5-14.5); RDW Standard Deviation 51.9 fL (36.4-46.3)
[2023-07-19] MEDS ORDERED: LACTATED RINGER'S 250 ML IV ONE (09:35)
[2023-07-19] MEDS: INSULIN ASPART PER UNIT CHARGE SC SCH ×4 (09:46→21:06)
[2023-07-19] MEDS: POLYETHYLENE (MIRALAX) 17 GM PACK PO SCH (09:47)
[2023-07-19] MEDS: PSYLLIUM or GUAR GUM FIBER POWDER PACKET PO SCH (09:47)
[2023-07-19] MEDS: GABAPENTIN 300 MG CAP PO SCH ×3 (09:47→21:05)
[2023-07-19] MEDS: carvediloL 25 MG TAB PO SCH ×2 (09:47→21:05)
[2023-07-19] MEDS: PREGABALIN 50 MG CAP PO SCH ×2 (09:47→21:05)
[2023-07-19] MEDS: ASPIRIN 81 MG ECTAB PO SCH (09:48)
[2023-07-19] MEDS: MULTIVITAMIN TAB PO SCH (09:48)
[2023-07-19] MEDS: DULoxetine HCL 20 MG CAP PO SCH (09:48)
[2023-07-19] MEDS: allopurinoL 300 MG TAB PO SCH (09:48)
[2023-07-19] MEDS: FINASTERIDE 5 MG TAB PO SCH (09:48)
[2023-07-19] MEDS: SENNA 8.6 MG TAB PO SCH (09:48)
[2023-07-19] MEDS: ACETAMINOPHEN 500 MG TAB PO PRN (10:39)
--- NOTE | 2023-07-19 14:40 | Hospitalist Progress Note ---
Date of Service July 19, 2023 Assessment & Plan (1) Adult failure to thrive: (2) Bilateral edema of lower extremity: (3) Ambulatory dysfunction: (4) Elevated CPK: (5) S/P insertion of intrathecal pump: (6) Myelomalacia of cervical cord: (7) Cellulitis: Plan Mr. Yepez is an 83 year old gentleman with PMHx significant for chronic pain with morphine pump, DMII and BPH admitted for placement per family, needing 3 people at home to help move him. Patient was noted to have lower extremity edema upon admission, which improved with IV diuersis. ECHO did not revealed diastolic dysfunction, but questionable PHTN. Further diuersis limited 2/2 SRAVANI. #Lower extremity edema *improved Pt with significant lower extremity edema Chest xray with noted cardiomegaly; Echo 60% EF, pHTN, LVH IV lasix in the ED, continue IV Lasix 40mg daily- held currently as pt with new SRAVANI #Left upper extremity edema Appears acute, per patient progressed since admission -LUE doppler #SRAVANI Received IV lasix 40 07/18 Hold diuersis, CTM #LLE swelling and erythema Doppler US LLE with low suspicion for clot Continue on Rocephin for possible infection while IP; transition to PO keflex upon discharge given ?cellulitis on admission (exam 07/19 with few excoriations, but no erythema, suggesting ?resolution) #DMII Hgba1c of 7.4 Holding home meds Basal/Bolus insulin while hospitalized- noted that pt hypoglycemic in the AM. Holding basal insulin #Ambulatory Dysfunction Freq falls happening at home, pt with bruising on chest CK elevated, downtrended, not currently on IVF due to being on diuretics PT/OT CM consult for placement needs in this situation #HTN On coreg 25mg BID Lisinopril held- continue to monitor BP #Recent Shingles infection Completed treatment #Chronic Pain Has morphine pump managed by [facility] management Consult placed to pain management for further pain management recs while in hosp Also on gabapentin, lyrica (noted both are gabapentinoids), cymbalta, tylenol for pain. Continue bowel regimen for chronic narcotic use- scheduled sennokot and metamucil, miralax ordered as pt on a pump Pain Consult placed on 07/16 #Constipation Continue bowel regimen for chronic narcotic use -scheduled sennokot and metamucil, miralax as pt on a morphine pump #HLD continue home statin BPH/LUTS continue home meds Diet: Low sodium, DMII DVT prophylaxis: Lovenox CODE STATUS: DNR/DNI per POLST form family has present in the room Dispo: Family requesting placement. Complex CM consult placed. Admission and Anticipated Discharge Date Admission Date: July 16, 2023 Subjective NAEO Patient denies any new symptoms, including chest pain, palpitations, SOB Patient notes ongoing weakness, but feels as if LE edema is improving Review of Systems Review of Systems: All systems reviewed & are unremarkable except as noted in Subjective Physical Exam Constitutional: WD/WN, vitals as above Respiratory: normal respiratory effort, lungs clear to auscultation Cardiovascular: RRR, no murmur, no edema Skin: left upper extremity edema, reports worse than baseline Results & Data Results & Data Vital Signs (Past 12 Hours) Vital Signs Temp Pulse Pulse Resp BP Pulse Ox O2 Del Method 07/19/23 11:37 36.9 C 63 18 110/70 92 Room Air 07/19/23 11:29 78 07/19/23 07:35 37.2 C 77 18 123/52 L 94 Room Air 07/19/23 03:03 37.1 C 80 16 112/65 93 Room Air Laboratory Results Short CBC 07/19/23 Range/Units 04:56 WBC 6.84 (4.8-10.8) K/ul Hgb 8.8 L (14.0-18.0) g/dl Hct 27.3 L (42.0-52.0) % Plt Count 311 (130-400) K/uL BMP 07/19/23 04:56 Sodium 136 Potassium 4.8 Chloride 101 Carbon Dioxide 27 BUN 65 H Creatinine 2.10 H D Glucose 111 H Calcium 9.3 Liver Function 07/19/23 Range/Units 04:56 Total Bilirubin 0.3 (0.2-1.0) mg/dl AST 25 (13-39) U/L ALT 26 (7-52) U/L Alkaline Phosphatase 31 L (34-104) U/L Albumin 3.3 L (3.4-5.0) gm/dl Medications Administered Home Medications Medication Instructions Recorded Confirmed Last Taken carvedilol 25 mg tablet 25 mg PO BID 09/07/16/23 07/16/23 allopurinol 300 mg tablet 300 mg PO QAM #30 tabs 11/02/18 07/16/23 07/16/23 semaglutide 1 mg/dose (2 mg/1.5 2 mg subcut WK 01/10/19 07/16/23 07/11/23 mL) subcutaneous pen injector (OzempCerebrex) fenofibrate nanocrystallized 145 145 mg PO QPM 05/22/19 07/16/23 07/15/23 mg tablet rosuvastatin 20 mg tablet 20 mg PO HS 05/22/19 07/16/23 07/15/23 tamsulosin 0.4 mg capsule 0.4 mg PO HS #90 caps 06/10/20 07/16/23 07/15/23 finasteride 5 mg tablet 5 mg PO QAM 05/07/21 07/16/23 07/16/23 mineral oil 30 ml PO QPM 05/07/21 07/16/23 07/15/23 multivitamin 1 tab PO QAM 05/07/21 07/16/23 07/16/23 psyllium husk 3.4 gram/5.4 gram 1 tbsp PO QAM 05/07/21 07/16/23 07/16/23 oral powder (Metamucil) MoRPHine PAIN PUMP 1 pump intrathecal UD #1 unit 04/27/22 07/16/23 07/16/23 naloxone 4 mg/actuation nasal 1 spray intranasal Q3M PRN opioid 04/27/22 07/16/23 Unknown spray (Narcan) overdose #2 ea dapagliflozin propanediol 5 mg 5 mg PO DAILY 05/11/22 07/16/23 07/16/23 tablet (Farxiga) insulin degludec 100 unit/mL 34 unit subcut HS 05/11/22 07/16/23 07/15/23 subcutaneous solution (Tresiba U-100 Insulin) acetaminophen 650 mg 650 - 1,300 mg PO Q8H 12/02/22 07/16/23 07/16/23 tablet,extended release (Tylenol 8 Hour) duloxetine 20 mg capsule,delayed 20 mg PO DAILY 12/02/22 07/16/23 07/15/23 release gabapentin 300 mg capsule 300 mg PO TID 12/02/22 07/16/23 07/16/23 sennosides 8.6 mg tablet (Natural 8.6 mg PO DAILY 12/02/22 07/16/23 07/15/23 Senna Laxative) aspirin 81 mg tablet,delayed 81 mg PO QAM 12/21/22 07/16/23 07/16/23 release (Aspir-) pregabalin 50 mg capsule (Lyrica) 50 mg PO BID 07/16/23 07/16/23 Unknown valacyclovir 1 gram tablet 1,000 mg PO TID 07/16/23 07/16/23 Unknown (Valtrex) Active Medications Generic Name Dose Route Start Last Admin Trade Name Freq PRN Reason Stop Dose Admin Acetaminophen 1,000 mg 07/18/23 16:56 07/19/23 10:39 Acetaminophen 500 Mg Tab PO 08/17/23 16:55 1,000 mg Q8H PRN Administration Pain Allopurinol 300 mg 07/17/23 09:00 07/19/23 09:48 Allopurinol 300 Mg Tab PO 08/16/23 08:59 300 mg QAM SARITA Administration Aspirin 81 mg 07/17/23 09:00 07/19/23 09:48 Aspirin 81 Mg Ectab PO 08/16/23 08:59 81 mg QAM SARITA Administration Carvedilol 25 mg 07/16/23 21:00 07/19/23 09:47 Carvedilol 25 Mg Tab PO 08/15/23 20:59 25 mg BID SARITA Administration Duloxetine HCl 20 mg 07/17/23 09:00 07/19/23 09:48 Duloxetine Hcl 20 Mg Cap PO 08/16/23 08:59 20 mg DAILY SARITA Administration Enoxaparin Sodium 40 mg 07/16/23 22:00 07/18/23 20:52 Enoxaparin Inj 40 Mg/0.4 Ml Syr SQ 08/15/23 21:59 40 mg Q24H SARITA Administration Fenofibrate 145 mg 07/16/23 21:00 07/18/23 20:50 Fenofibrate Nanocrystallized 145 Mg Tablet PO 08/15/23 20:59 145 mg QPM SARITA Administration Finasteride 5 mg 07/17/23 09:00 07/19/23 09:48 Finasteride 5 Mg Tab PO 08/16/23 08:59 5 mg QAM SARITA Administration Furosemide 40 mg 07/17/23 09:00 07/18/23 10:02 Furosemide 40 Mg/4 Ml Vial IV 08/16/23 08:59 40 mg DAILY SARITA Administration Gabapentin 300 mg 07/16/23 21:00 07/19/23 09:47 Gabapentin 300 Mg Cap PO 08/15/23 20:59 300 mg TID SARITA Administration Ceftriaxone Sodium 2,000 mg/ 50 mls @ 100 mls/hr 07/16/23 22:00 07/18/23 21:36 Dextrose IV 07/23/23 21:59 Infused Q24H SARITA Infusion Protocol Insulin Aspart 0 units 07/16/23 21:00 07/19/23 13:04 Insulin Aspart Per Unit Charge SC 08/15/23 20:59 2 units ACHS SARITA Administration Lisinopril 10 mg 07/17/23 17:30 07/18/23 09:56 Lisinopril 10 Mg Tab PO 08/16/23 17:29 10 mg QAM SARITA Administration Mineral Oil 30 ml 07/16/23 21:30 07/18/23 20:49 Mineral Oil 30 Ml Udc PO 08/15/23 21:29 30 ml QPM SARITA Administration Miscellaneous 15 - 30 gm 07/16/23 20:45 07/18/23 08:20 Carbohydrates For Hypoglycemia PO 08/15/23 20:44 15 gm UD PRN Administration Hypoglycemia Protocol Multivitamins 1 tab 07/17/23 09:00 07/19/23 09:48 Multivitamin Tab PO 08/16/23 08:59 1 tab QAM SARITA Administration Polyethylene Glycol 17 gm 07/17/23 17:45 07/19/23 09:47 Polyethylene (Miralax) 17 Gm Pack PO 08/16/23 17:44 17 gm DAILY SARITA Administration Pregabalin 50 mg 07/16/23 21:00 07/19/23 09:47 Pregabalin 50 Mg Cap PO 08/15/23 20:59 50 mg BID SARITA Administration Psyllium Hydrophilic Mucilloid 1 pkt 07/17/23 09:00 07/19/23 09:47 Psyllium Or Guar Gum Fiber Powder Packet PO 08/16/23 08:59 1 pkt QAM SARITA Administration Rosuvastatin Calcium 20 mg 07/16/23 21:00 07/18/23 20:50 Rosuvastatin Calcium 20 Mg Tab PO 08/15/23 20:59 20 mg HS SARITA Administration Sennosides 8.6 mg 07/17/23 09:00 07/19/23 09:48 Senna 8.6 Mg Tab PO 08/16/23 08:59 8.6 mg DAILY SARITA Administration Tamsulosin HCl 0.4 mg 07/16/23 21:00 07/18/23 20:50 Tamsulosin Hcl 0.4 Mg Cap PO 08/15/23 20:59 0.4 mg HS SARITA Administration
[2023-07-19] MEDS: MINERAL OIL 30 ML UDC PO SCH (21:04)
[2023-07-19] MEDS: TAMSULOSIN HCL 0.4 MG CAP PO SCH (21:05)
[2023-07-19] MEDS: FENOFIBRATE NANOCRYSTALLIZED 145 MG TABLET PO SCH (21:06)
[2023-07-19] MEDS: cefTRIAXone SODIUM 2,000 MG in DEXTROSE 5 % MINI-B 50 ML IV SCH (21:06)
[2023-07-19] MEDS: ROSUVASTATIN CALCIUM 20 MG TAB PO SCH (21:06)
[2023-07-19] MEDS: ENOXAPARIN INJ 40 MG/0.4 ML SYR SQ SCH (21:12)
--- NOTE | 2023-07-19 23:49 | Ultrasound Report ---
ULTRASOUND LEFT UPPER EXTREMITY VENOUS CLINICAL HISTORY: Left arm swelling. COMPARISON STUDY: No priors. TECHNIQUE: Real-time, grayscale, and color Doppler sonography of the deep veins of the left upper ext remity is performed. Compression and augmentation were utilized. FINDINGS: There is no sonographic evidence of deep venous thrombosis identified in the left upper ext remity. The left internal jugular, axillary, and brachial veins are patent and normally compressible. Normal venous waveforms and augmentation are seen within the left subclavian vein. The cephalic and basilic veins are clear. The radial vein is patent. The ulnar vein is not well-visualized. IMPRESSION: There is no sonographic evidence of deep venous thrombosis identified in the left upper e xtremity. ACT 112: Negative or not required by law. Electronically signed by: Alejandro Sandoval M.D. 07/19/2023 11:47 PM
[2023-07-20 06:56] LABS: BUN Creatinine Ratio 39.5 (10-20); Calcium 9.1 mg/dl (8.6-10.3); Creatinine Clr Calc Pharmacy 39.5 ml/min; Est GFR (African American) 38.4 ml/min; Est GFR (Non-African American) 33.2 ml/min; Magnesium 2.2 mg/dl (1.7-2.4); Potassium 4.7 mmol/L (3.5-5.1)
[2023-07-20] MEDS: ASPIRIN 81 MG ECTAB PO SCH (08:27)
[2023-07-20] MEDS: carvediloL 25 MG TAB PO SCH ×2 (08:27→21:18)
[2023-07-20] MEDS: FINASTERIDE 5 MG TAB PO SCH (08:27)
[2023-07-20] MEDS: GABAPENTIN 300 MG CAP PO SCH ×3 (08:27→21:18)
[2023-07-20] MEDS: DULoxetine HCL 20 MG CAP PO SCH (08:27)
[2023-07-20] MEDS: allopurinoL 300 MG TAB PO SCH (08:27)
[2023-07-20] MEDS: POLYETHYLENE (MIRALAX) 17 GM PACK PO SCH (08:28)
[2023-07-20] MEDS: SENNA 8.6 MG TAB PO SCH (08:28)
[2023-07-20] MEDS: MULTIVITAMIN TAB PO SCH (08:28)
[2023-07-20] MEDS: PREGABALIN 50 MG CAP PO SCH ×2 (08:28→21:20)
[2023-07-20] MEDS: PSYLLIUM or GUAR GUM FIBER POWDER PACKET PO SCH (08:28)
[2023-07-20] MEDS: INSULIN ASPART PER UNIT CHARGE SC SCH ×4 (09:12→21:18)
[2023-07-20] MEDS: ACETAMINOPHEN 500 MG TAB PO PRN ×2 (09:23→21:26)
--- NOTE | 2023-07-20 13:52 | Hospitalist Progress Note ---
Date of Service July 20, 2023 Assessment & Plan (1) Adult failure to thrive: (2) Bilateral edema of lower extremity: (3) Ambulatory dysfunction: (4) Elevated CPK: (5) S/P insertion of intrathecal pump: (6) Myelomalacia of cervical cord: (7) Cellulitis: Plan Mr. Yepez is an 83 year old gentleman with PMHx significant for chronic pain with morphine pump, DMII and BPH admitted for placement per family, needing 3 people at home to help move him. Patient was noted to have lower extremity edema upon admission, which improved with IV diuersis. ECHO did not revealed diastolic dysfunction, but questionable PHTN. Further diuersis limited 2/2 SRAVANI, which is improving with cessation of lasix. #Lower extremity edema *improved Pt with significant lower extremity edema Chest xray with noted cardiomegaly; Echo 60% EF, pHTN, LVH Swelling near resolved on exam, no reported heart failure Hold on lasix, will assess prn need contingent on fluid status and SRAVANI #Left upper extremity edema Appears acute, per patient progressed since admission -LUE doppler negative for acute process, not tolerating IV water pill -Elevate LUE #SRAVANI *improving CTM Received IV lasix 40 07/18 Hold diuersis, CTM #LLE swelling and erythema Doppler US LLE with low suspicion for clot Continue on Rocephin for possible infection while IP; transition to PO keflex upon discharge given ?cellulitis on admission (exam 07/19 with few excoriations, but no erythema, suggesting ?resolution) EOT 07/23 #DMII Hgba1c of 7.4 Holding home meds Basal/Bolus insulin while hospitalized- noted that pt hypoglycemic in the AM. Holding basal insulin #Ambulatory Dysfunction Freq falls happening at home, pt with bruising on chest CK elevated, downtrended, not currently on IVF due to being on diuretics PT/OT CM consult for placement needs in this situation #HTN On coreg 25mg BID Lisinopril held- continue to monitor BP #Recent Shingles infection Completed treatment #Chronic Pain Has morphine pump managed by [facility] Pain management Consult placed to pain management for further pain management recs while in hosp Also on gabapentin, lyrica (noted both are gabapentinoids), cymbalta, tylenol for pain. Continue bowel regimen for chronic narcotic use- scheduled sennokot and met amucil, miralax ordered as pt on a pump Pain Consult placed on 07/16 #Constipation Continue bowel regimen for chronic narcotic use -scheduled sennokot and metamucil, miralax as pt on a morphine pump #HLD continue home statin BPH/LUTS continue home meds Diet: Low sodium, DMII DVT prophylaxis: Lovenox CODE STATUS: DNR/DNI per POLST form family has present in the room Dispo: Family requesting placement. Complex CM consult placed. Pending auth. Admission and Anticipated Discharge Date Admission Date: July 16, 2023 Subjective NAEO Patient states he has ongoing pain and often requires full assist for moving in bed. Endorses strong appetite, denies any new symptoms Review of Systems Review of Systems: All systems reviewed & are unremarkable except as noted in Subjective Physical Exam Constitutional: WD/WN, vitals as above Respiratory: normal respiratory effort, lungs clear to auscultation Cardiovascular: RRR, no murmur, no edema Skin: LUE edema, trace edema in BLE Results & Data Results & Data Vital Signs (Past 12 Hours) Vital Signs Temp Pulse Pulse Resp BP Pulse Ox O2 Del Method 07/20/23 11:45 37 C 76 19 125/68 93 Room Air 07/20/23 11:45 36.9 C 76 16 124/74 93 Room Air 07/20/23 09:41 76 07/20/23 07:49 37.2 C 77 16 122/75 94 Room Air 07/20/23 03:00 36.6 C 78 20 136/75 93 Room Air
[2023-07-20] MEDS: cefTRIAXone SODIUM 2,000 MG in DEXTROSE 5 % MINI-B 50 ML IV SCH (21:13)
[2023-07-20] MEDS: TAMSULOSIN HCL 0.4 MG CAP PO SCH (21:18)
[2023-07-20] MEDS: ROSUVASTATIN CALCIUM 20 MG TAB PO SCH (21:18)
[2023-07-20] MEDS: ENOXAPARIN INJ 40 MG/0.4 ML SYR SQ SCH (21:18)
[2023-07-20] MEDS: FENOFIBRATE NANOCRYSTALLIZED 145 MG TABLET PO SCH (21:18)
[2023-07-20] MEDS: MINERAL OIL 30 ML UDC PO SCH (21:18)
[2023-07-21 08:11] LABS: Hematocrit (blood only) 25.7 % (42.0-52.0); Hemoglobin 8.3 g/dl (14.0-18.0); Mean Corpuscular Hemoglobin 29.9 pg (25.0-34.0); Mean Corpuscular Hgb Conc 32.3 g/dL (32.0-36.0); Mean Corpuscular Volume 92.4 fL (80.0-100.0); Mean Platelet Volume 10.3 fL (9.4-12.4); Platelet Count 298 K/uL (130-400); RDW Coefficient of Variation 15.5 % (11.5-14.5); RDW Standard Deviation 52.6 fL (36.4-46.3); Red Blood Count 2.78 M/uL (4.70-6.10); White Blood Count 7.51 K/ul (4.8-10.8)
[2023-07-21 08:29] LABS: BUN Creatinine Ratio 41.9 (10-20); Calcium 9.1 mg/dl (8.6-10.3); Creatinine Clr Calc Pharmacy 38.2 ml/min; Est GFR (Non-African American) 31.9 ml/min; Magnesium 2.4 mg/dl (1.7-2.4); Phosphorus 4.9 mg/dl (2.5-4.9); Potassium 4.7 mmol/L (3.5-5.1)
[2023-07-21] MEDS: INSULIN ASPART PER UNIT CHARGE SC SCH ×4 (08:53→21:11)
[2023-07-21] MEDS: carvediloL 25 MG TAB PO SCH ×2 (08:54→21:07)
[2023-07-21] MEDS: GABAPENTIN 300 MG CAP PO SCH ×3 (08:54→21:08)
[2023-07-21] MEDS: allopurinoL 300 MG TAB PO SCH (08:55)
[2023-07-21] MEDS: FINASTERIDE 5 MG TAB PO SCH (08:55)
[2023-07-21] MEDS: DULoxetine HCL 20 MG CAP PO SCH (08:55)
[2023-07-21] MEDS: PSYLLIUM or GUAR GUM FIBER POWDER PACKET PO SCH (08:55)
[2023-07-21] MEDS: POLYETHYLENE (MIRALAX) 17 GM PACK PO SCH (08:55)
[2023-07-21] MEDS: ASPIRIN 81 MG ECTAB PO SCH (08:55)
[2023-07-21] MEDS: MULTIVITAMIN TAB PO SCH (08:55)
[2023-07-21] MEDS: SENNA 8.6 MG TAB PO SCH (08:55)
[2023-07-21] MEDS: PREGABALIN 50 MG CAP PO SCH ×2 (08:56→21:09)
[2023-07-21] MEDS: LACTATED RINGER'S 1,000 ML IV SCH ×2 (10:04→21:09)
--- NOTE | 2023-07-21 13:20 | Orthopedic Consultation ---
Date of Consultation July 21, 2023 Assessment & Plan (1) Ambulatory dysfunction: Patient has chronic persistent low back pain with new onset of severe weakness in both of his legs. This may be combination of the fluid overload as well as the urinary tract infection affecting his underlying failed laminectomy syndrome. His comorbidities make him a very poor surgical candidate and he does not want any further surgery at this point. We will see how he does with his diuresis and treatment of his urinary tract infection he can have PT and OT bedside and likely need fci placement. I will discuss the case with Dr. Cunningham if there are any further concerns or questions he can contact our group. History of Present Illness Attending Physician: Emerita Hay MD History of Present Illness The patient is known to our practice. Has had multiple back surgeries in the past and is essentially fused from L1-S1 he had imaging performed of the cervical and thoracic spine and has known cervical stenosis but was deemed a nonsurgical candidate by his primary care physician. He has chronic persistent low back pain and has not intrathecal pain pump in place. He was brought to the hospital on 07/16/2023 with inability to stand and walk secondary to weakness in his legs. His son is in the room who is filled in most of his history. Per the patient he has the same pain in his back that he has had he cannot feel his legs. He has very little strength in his legs at all. Over the last several months his family has had to lift him to get him from bed to chair to roll him over. On presentation he had severe swelling as well as a urinary tract infection which is being treated. He denies any other numbness, tingling, or paresthesias. Allergies Allergy/AdvReac Type Severity Reaction Status Date / Time cyclobenzaprine AdvReac Severe Disorientation, Verified 07/16/23 16:00 confusion Home Medications Medication Instructions Recorded Confirmed Type carvedilol 25 mg tablet 25 mg PO BID 06/11/18 07/16/23 History allopurinol 300 mg tablet 300 mg PO QAM #30 tabs 11/02/18 07/16/23 Rx semaglutide 1 mg/dose (2 mg/1.5 2 mg subcut WK 01/10/19 07/16/23 History mL) subcutaneous pen injector ([employer]) fenofibrate nanocrystallized 145 145 mg PO QPM 05/22/19 07/16/23 History mg tablet rosuvastatin 20 mg tablet 20 mg PO HS 05/22/19 07/16/23 History tamsulosin 0.4 mg capsule 0.4 mg PO HS #90 caps 06/10/20 07/16/23 Rx finasteride 5 mg tablet 5 mg PO QAM 05/07/21 07/16/23 History mineral oil 30 ml PO QPM 05/07/21 07/16/23 History multivitamin 1 tab PO QAM 05/07/21 07/16/23 History psyllium husk 3.4 gram/5.4 gram 1 tbsp PO QAM 05/07/21 07/16/23 History oral powder (Metamucil) MoRPHine PAIN PUMP 1 pump intrathecal UD #1 unit 04/27/22 07/16/23 Rx naloxone 4 mg/actuation nasal 1 spray intranasal Q3M PRN opioid 04/27/22 07/16/23 Rx spray (Narcan) overdose #2 ea dapagliflozin propanediol 5 mg 5 mg PO DAILY 05/11/22 07/16/23 History tablet (Farxiga) insulin degludec 100 unit/mL 34 unit subcut HS 05/11/22 07/16/23 History subcutaneous solution (Tresiba U-100 Insulin) acetaminophen 650 mg 650 - 1,300 mg PO Q8H 12/02/22 07/16/23 History tablet,extended release (Tylenol 8 Hour) duloxetine 20 mg capsule,delayed 20 mg PO DAILY 12/02/22 07/16/23 History release gabapentin 300 mg capsule 300 mg PO TID 12/02/22 07/16/23 History sennosides 8.6 mg tablet (Natural 8.6 mg PO DAILY 12/02/22 07/16/23 History Senna Laxative) aspirin 81 mg tablet,delayed 81 mg PO QAM 12/21/22 07/16/23 History release (Aspir-) pregabalin 50 mg capsule (Lyrica) 50 mg PO BID 07/16/23 07/16/23 History valacyclovir 1 gram tablet 1,000 mg PO TID 07/16/23 07/16/23 History (Valtrex) Patient History Medical History Anemia Chronic Carotid artery stenosis s/p left CEA (2006) CKD (chronic kidney disease) Coronary artery disease CABG x2 (2006) Follows Dr. York ([place]) Diabetes mellitus, type 2 IDDM Dyslipidemia Frozen shoulder Gout History of atrial fibrillation s/p radiofrequency ablation (2011) Follows Dr. York ([place]) History of blood transfusion Post-op (2017) History of kidney stones Hx of atrial flutter 4:1 AV conduction s/p cardioversion x2 and subsequent successful RFA (2011) Hx of sleep apnea Refuses CPAP per records Uses oxygen 2L HS N/C Hypertension Myelomalacia of cervical cord Myofascial pain Obesity Postlaminectomy syndrome of lumbosacral region Presence of intrathecal pump Prostate cancer s/p radiation (2016) Spinal stenosis Weakness Surgical History H/O cardiac radiofrequency ablation atrial flutter converted to NSR History of cystoscopy + stent (08/06/18): MAC sedation at [facility] History of difficult intubation L2-S1 fusion 06/19/2014 - "poor visualization with MAC 4. Glidescope #4 utilized. Lg tongue with much soft tissue." History of lumbar fusion x 4 back surgeries History of open reduction and internal fixation (ORIF) procedure R/L ankles () History of surgery Morphine epidural pump trial (03/01/22): MAC at [facility]. No issues noted per post- op anesthesia progress note. S/P CABG x 2 FRANCO-LAD; LAD-D1 SUB BRANCH (2006) S/P carotid endarterectomy Left (2006) S/P insertion of intrathecal pump Family History Grandmother Diabetes Other Alzheimer disease Prostate cancer Social History Smoking Status: Current some day smoker Tobacco Type: Cigars Second Hand Exposure: No; Do You Dip or Chew Tobacco: No; Hx Alcohol Use: No Hx Substance Use: No Preferred Language: Japanese Communication Ability: Effective Communication Ability Comment: SLIGHT HEARD OF HEARING Visual Impairment: No Limitations Social Professionals Required: No Beliefs That Will Affect Care: None marital status: / Current Living Situation: Alone current occupational status: retired How many Children do You have: 4 Feels Safe at Home: Yes Safety Concerns: Feels Safe At This Time Assistive Devices: Hospital Bed, Lift Chair, Oxygen - at Night and Scooter/Electric Scooter Assistive Devices Comment: "mauricio chair" Physical Exam Physical Exam: On exam he is alert and oriented. He does not recall much of his history however. He has severe edema in the left hand and moderate edema in both feet. Per his son they are significantly improved from admission. He can feel deep pressure in both lower extremities but has loss of sensation to light touch. He can dorsiflex and plantarflex but does not have much resistance. There is skin breakdown over the left great toe. His visual brush are grossly intact. Cardiovascular exam reveals no gross abnormalities. His abdomen soft and nontender his calves are supple nontender. Results & Data Vital Signs (Past 12 Hours) Vital Signs Temp Pulse Pulse Resp BP Pulse Ox O2 Del Method 07/21/23 11:12 37 C 70 20 113/64 93 Room Air 07/21/23 08:15 Room Air 07/21/23 07:37 74 07/21/23 07:26 36.4 C L 55 L 20 166/70 H 97 Room Air 07/21/23 03:00 36.7 C 77 18 122/64 92 Room Air
--- NOTE | 2023-07-21 15:12 | Hospitalist Progress Note ---
Date of Service July 21, 2023 Assessment & Plan (1) Adult failure to thrive: (2) Bilateral edema of lower extremity: (3) Ambulatory dysfunction: (4) Elevated CPK: (5) S/P insertion of intrathecal pump: (6) Myelomalacia of cervical cord: (7) Cellulitis: Plan Mr. Yepez is an 83 year old gentleman with PMHx significant for chronic pain with morphine pump, DMII and BPH admitted for placement per family, needing 3 people at home to help move him. Patient was noted to have lower extremity edema upon admission, which improved with IV diuersis. ECHO did not revealed diastolic dysfunction, but questionable PHTN. Further diuresis limited 2/2 SRAVANI, which is improving with cessation of lasix. Patient with elevated CK since admission, will offer gentle IVF withplans to d/c once level stable. Ortho evaluated patient, no surgical intervention given complex comorbidities m aking patient poor candidate. #Ambulatory Dysfunction #Failed Laminectomy syndrome Freq falls happening at home, pt with bruising on chest CK elevated, downtrended, not currently on IVF due to being on diuretics PT/OT CM consult for placement needs in this situation Ortho evaluated patient given left leg seonsroy loss and bilateral motor weakness, no surgical intervention given comorbidities #Rhabdomyolysis -CK elevated on admission, now 768, gentle IV hydration iso SRAVANI/elevated CK -Trend CK amd discontinue fluids as able #Lower extremity edema *improved Pt with significant lower extremity edema Chest xray with noted cardiomegaly; Echo 60% EF, pHTN, LVH Swelling near resolved on exam, no reported heart failure Hold on lasix, will assess prn need contingent on fluid status and SRAVANI #Left upper extremity edema Appears acute, per patient progressed since admission -LUE doppler negative for acute process, not tolerating IV water pill -Elevate LUE #SRAVANI *improving CTM Received IV lasix 40 07/18 Hold diuersis, CTM #LLE swelling and erythema Doppler US LLE with low suspicion for clot Continue on Rocephin for possible infection while IP; transition to PO keflex upon discharge given ?cellulitis on admission (exam 07/19 with few excoriations, but no erythema, suggesting ?resolution) EOT 07/23 #DMII Hgba1c of 7.4 Holding home meds Basal/Bolus insulin while hospitalized- noted that pt hypoglycemic in the AM. Holding basal insulin #HTN On coreg 25mg BID Lisinopril held- continue to monitor BP #Recent Shingles infection Completed treatment #Chronic Pain Has morphine pump managed by [facility] Consult placed to pain management for further pain management recs while in hosp Also on gabapentin, lyrica (noted both are gabapentinoids), cymbalta, tylenol for pain. Continue bowel regimen for chronic narcotic use- scheduled sennokot and metamucil, miralax ordered as pt on a pump Pain Consult placed on 07/16 #Constipation Continue bowel regimen for chronic narcotic use -scheduled sennokot and metamucil, miralax as pt on a morphine pump #HLD continue home statin BPH/LUTS continue home meds Diet: Low sodium, DMII DVT prophylaxis: Lovenox CODE STATUS: DNR/DNI per POLST form family has present in the room Dispo: Family requesting placement. Complex CM consult placed. Pending auth. Admission and Anticipated Discharge Date Admission Date: July 16, 2023 Subjective NAEO Patient reports being exquistely weak in general, states this happened over the course of weeks but felt more acute a week prior to arrival. Denies any chest pain or other concerns Eager for placement Review of Systems Review of Systems: All systems reviewed & are unremarkable except as noted in Subjective Physical Exam Constitutional: WD/WN, vitals as above Respiratory: normal respiratory effort, lungs clear to auscultation Musculoskeletal: trace BLE edema, LUE edema present but improved since prior exam Neurologic: reduced sensation LLE, minimal movement of bilateral lower extremities, strength 1/5; upper extremities 2/5. Results & Data Results & Data Vital Signs (Past 12 Hours) Vital Signs Temp Pulse Pulse Resp BP Pulse Ox O2 Del Method 07/21/23 15:04 71 07/21/23 14:47 37.0 C 70 16 113/64 93 Room Air 07/21/23 11:12 37 C 70 20 113/64 93 Room Air 07/21/23 08:15 Room Air 07/21/23 07:37 74 07/21/23 07:26 36.4 C L 55 L 20 166/70 H 97 Room Air
[2023-07-21] MEDS: FENOFIBRATE NANOCRYSTALLIZED 145 MG TABLET PO SCH (21:08)
[2023-07-21] MEDS: MINERAL OIL 30 ML UDC PO SCH (21:08)
[2023-07-21] MEDS: ROSUVASTATIN CALCIUM 20 MG TAB PO SCH (21:09)
[2023-07-21] MEDS: TAMSULOSIN HCL 0.4 MG CAP PO SCH (21:09)
[2023-07-21] MEDS: cefTRIAXone SODIUM 2,000 MG in DEXTROSE 5 % MINI-B 50 ML IV SCH (21:12)
[2023-07-21] MEDS: ENOXAPARIN INJ 40 MG/0.4 ML SYR SQ SCH (21:13)
[2023-07-22 06:40] LABS: Hematocrit (blood only) 25.2 % (42.0-52.0); Hemoglobin 8.2 g/dl (14.0-18.0); Mean Corpuscular Hemoglobin 30.4 pg (25.0-34.0); Mean Corpuscular Hgb Conc 32.5 g/dL (32.0-36.0); Mean Corpuscular Volume 93.3 fL (80.0-100.0); Mean Platelet Volume 10.5 fL (9.4-12.4); Platelet Count 285 K/uL (130-400); RDW Coefficient of Variation 15.5 % (11.5-14.5); RDW Standard Deviation 52.7 fL (36.4-46.3); White Blood Count 7.19 K/ul (4.8-10.8)
[2023-07-22 07:11] LABS: BUN Creatinine Ratio 47.3 (10-20); Calcium 8.6 mg/dl (8.6-10.3); Creatinine Clr Calc Pharmacy 43.5 ml/min; Est GFR (African American) 43.5 ml/min; Est GFR (Non-African American) 37.5 ml/min; Potassium 4.6 mmol/L (3.5-5.1)
[2023-07-22] MEDS: allopurinoL 300 MG TAB PO SCH (08:38)
[2023-07-22] MEDS: FINASTERIDE 5 MG TAB PO SCH (08:38)
[2023-07-22] MEDS: DULoxetine HCL 20 MG CAP PO SCH (08:38)
[2023-07-22] MEDS: SENNA 8.6 MG TAB PO SCH ×3 (08:38→21:37)
[2023-07-22] MEDS: GABAPENTIN 300 MG CAP PO SCH ×3 (08:38→21:33)
[2023-07-22] MEDS: PSYLLIUM or GUAR GUM FIBER POWDER PACKET PO SCH (08:38)
[2023-07-22] MEDS: MULTIVITAMIN TAB PO SCH (08:38)
[2023-07-22] MEDS: ASPIRIN 81 MG ECTAB PO SCH (08:38)
[2023-07-22] MEDS: carvediloL 25 MG TAB PO SCH ×2 (08:38→21:29)
[2023-07-22] MEDS: POLYETHYLENE (MIRALAX) 17 GM PACK PO SCH ×3 (08:39→21:38)
[2023-07-22] MEDS: LACTATED RINGER'S 1,000 ML IV SCH ×2 (08:41→22:14)
[2023-07-22] MEDS: PREGABALIN 50 MG CAP PO SCH ×2 (08:41→21:36)
[2023-07-22] MEDS: INSULIN ASPART PER UNIT CHARGE SC SCH ×4 (08:43→21:38)
--- NOTE | 2023-07-22 13:00 | Hospitalist Progress Note ---
Date of Service July 22, 2023 Assessment & Plan (1) Adult failure to thrive: (2) Bilateral edema of lower extremity: (3) Ambulatory dysfunction: (4) Elevated CPK: (5) S/P insertion of intrathecal pump: (6) Myelomalacia of cervical cord: (7) Cellulitis: Plan Mr. Yepez is an 83 year old gentleman with PMHx significant for chronic pain with morphine pump, DMII and BPH admitted for placement per family, needing 3 people at home to help move him. Patient was noted to have lower extremity edema upon admission, which improved with IV diuersis. ECHO did not revealed diastolic dysfunction, but questionable PHTN. Further diuresis limited 2/2 SRAVANI, which is improving with cessation of lasix. Patient with elevated CK since admission, will offer gentle IVF withplans to d/c once level stable. Ortho evaluated patient, no surgical intervention given complex comorbidities m aking patient poor candidate. Patient experiencing fevers and looks generally unwell, despite near 7 days of treatment of CTX. Will broaden and do infectious work up to determine potential source. Concern for urinary etiology at this time. #Fever Patient clammy and not "feeling welll" on exam; denies URI symptoms Plan for UA Broaden to zosyn given CTX x7days for presumptive cellulitis but now fevering Tylenol for fever Wound care to evaluate for DTI #Ambulatory Dysfunction #Failed Laminectomy syndrome Freq falls happening at home, pt with bruising on chest CK elevated, downtrended, not currently on IVF due to being on diuretics PT/OT CM consult for placement needs in this situation Ortho evaluated patient given left leg seonsroy loss and bilateral motor weakness, no surgical intervention given comorbidities #Rhabdomyolysis -CK elevated on admission, now 623, gentle IV hydration iso SRAVANI/elevated CK -Trend CK amd discontinue fluids as able #Lower extremity edema *improved Pt with significant lower extremity edema Chest xray with noted cardiomegaly; Echo 60% EF, pHTN, LVH Swelling near resolved on exam, no reported heart failure Hold on lasix, will assess prn need contingent on fluid status and SRAVANI #Left upper extremity edema Appears acute, per patient progressed since admission -LUE doppler negative for acute process, not tolerating IV water pill -Elevate LUE #SRAVANI *improving CTM Received IV lasix 40 07/18 Hold diuersis, CTM #LLE swelling and erythema *improving Doppler US LLE with low suspicion for clot Continue on Rocephin for possible infection while IP; transition to PO keflex upon discharge given ?cellulitis on admission (exam 07/19 with few excoriations, but no erythema, suggesting ?resolution) EOT 07/23 #DMII Hgba1c of 7.4 Holding home meds Basal/Bolus insulin while hospitalized- noted that pt hypoglycemic in the AM. Holding basal insulin #HTN On coreg 25mg BID Lisinopril held- continue to monitor BP #Recent Shingles infection Completed treatment #Chronic Pain Has morphine pump managed by [facility] Consult placed to pain management for further pain management recs while in hosp Also on gabapentin, lyrica (noted both are gabapentinoids), cymbalta, tylenol for pain. Continue bowel regimen for chronic narcotic use- scheduled sennokot and metam ucil, miralax ordered as pt on a pump Pain Consult placed on 07/16 #Constipation Continue bowel regimen for chronic narcotic use -scheduled sennokot and metamucil, miralax as pt on a morphine pump No BM charted, KUB to assess as contributing cause #HLD continue home statin BPH/LUTS continue home meds Diet: Low sodium, DMII DVT prophylaxis: Lovenox CODE STATUS: DNR/DNI per POLST form family has present in the room Dispo: Family requesting placement. Complex CM consult placed. Pending auth. Admission and Anticipated Discharge Date Admission Date: July 16, 2023 Subjective Patient states he feels unwell and that he is unsure exactly what is bothersome; he denies any pain that he can identify, feels the urge to move his bowels, cannot assess urinary concerns with lawson Denies nausea or stomach upset Review of Systems Review of Systems: All systems reviewed & are unremarkable except as noted in Subjective Physical Exam Constitutional: pale, clammy on exam Respiratory: normal respiratory effort, lungs clear to auscultation Cardiovascular: RRR, no murmur, no edema Gastrointestinal (Abdomen): normal bowel sounds, soft, nontender, no hepatosplenomegaly Results & Data Results & Data Vital Signs (Past 12 Hours) Vital Signs Temp Pulse Pulse Resp BP Pulse Ox O2 Del Method 07/22/23 11:15 37.6 C H 76 20 129/60 92 Room Air 10/28/23 07:34 37.5 C 78 18 138/54 L 91 Room Air 07/22/23 07:38 75 07/22/23 05:24 37.7 C H 77 18 118/64 95 Room Air Laboratory Results Short CBC 07/22/23 Range/Units 05:42 WBC 7.19 (4.8-10.8) K/ul Hgb 8.2 L (14.0-18.0) g/dl Hct 25.2 L (42.0-52.0) % Plt Count 285 (130-400) K/uL BMP 07/22/23 05:42 Sodium 133 L Potassium 4.6 Chloride 99 Carbon Dioxide 27 BUN 79 H Creatinine 1.67 H Glucose 101 H Calcium 8.6 Cardiac Enzymes 07/22/23 Range/Units 05:42 Total Creatine Kinase 623 H (30-223) U/L Medications Administered Home Medications Medication Instructions Recorded Confirmed Last Taken carvedilol 25 mg tablet 25 mg PO BID 06/11/18 07/16/23 07/16/23 allopurinol 300 mg tablet 300 mg PO QAM #30 tabs 11/02/18 07/16/23 07/16/23 semaglutide 1 mg/dose (2 mg/1.5 2 mg subcut WK 01/10/19 07/16/23 07/11/23 mL) subcutaneous pen injector (Ozempic) fenofibrate nanocrystallized 145 145 mg PO QPM 05/22/19 07/16/23 07/15/23 mg tablet rosuvastatin 20 mg tablet 20 mg PO HS 05/22/19 07/16/23 07/15/23 tamsulosin 0.4 mg capsule 0.4 mg PO HS #90 caps 06/10/20 07/16/23 07/15/23 finasteride 5 mg tablet 5 mg PO QAM 05/07/21 07/16/23 07/16/23 mineral oil 30 ml PO QPM 05/07/21 07/16/23 07/15/23 multivitamin 1 tab PO QAM 05/07/21 07/16/23 07/16/23 psyllium husk 3.4 gram/5.4 gram 1 tbsp PO QAM 05/07/21 07/16/23 07/16/23 oral powder (Metamucil) MoRPHine PAIN PUMP 1 pump intrathecal UD #1 unit 04/27/22 07/16/23 07/16/23 naloxone 4 mg/actuation nasal 1 spray intranasal Q3M PRN opioid 04/27/22 07/16/23 Unknown spray (Narcan) overdose #2 ea dapagliflozin propanediol 5 mg 5 mg PO DAILY 05/11/22 07/16/23 07/16/23 tablet (Farxiga) insulin degludec 100 unit/mL 34 unit subcut HS 05/11/22 07/16/23 07/15/23 subcutaneous solution (Tresiba U-100 Insulin) acetaminophen 650 mg 650 - 1,300 mg PO Q8H 12/02/22 07/16/23 07/16/23 tablet,extended release (Tylenol 8 Hour) duloxetine 20 mg capsule,delayed 20 mg PO DAILY 12/02/22 07/16/23 07/15/23 release gabapentin 300 mg capsule 300 mg PO TID 12/02/22 07/16/23 07/16/23 sennosides 8.6 mg tablet (Natural 8.6 mg PO DAILY 12/02/22 07/16/23 07/15/23 Senna Laxative) aspirin 81 mg tablet,delayed 81 mg PO QAM 12/21/22 07/16/23 07/16/23 release (Aspir-) pregabalin 50 mg capsule (Lyrica) 50 mg PO BID 07/16/23 07/16/23 Unknown valacyclovir 1 gram tablet 1,000 mg PO TID 07/16/23 07/16/23 Unknown (Valtrex) Active Medications Generic Name Dose Route Start Last Admin Trade Name Freq PRN Reason Stop Dose Admin Acetaminophen 1,000 mg 07/18/23 16:56 07/20/23 21:26 Acetaminophen 500 Mg Tab PO 08/17/23 16:55 1,000 mg Q8H PRN Administration Pain Allopurinol 300 mg 07/17/23 09:00 07/22/23 08:38 Allopurinol 300 Mg Tab PO 08/16/23 08:59 300 mg QAM SARITA Administration Aspirin 81 mg 07/17/23 09:00 07/22/23 08:38 Aspirin 81 Mg Ectab PO 08/16/23 08:59 81 mg QAM SARITA Administration Carvedilol 25 mg 07/16/23 21:00 07/22/23 08:38 Carvedilol 25 Mg Tab PO 08/15/23 20:59 25 mg BID SARITA Administration Duloxetine HCl 20 mg 07/17/23 09:00 07/22/23 08:38 Duloxetine Hcl 20 Mg Cap PO 08/16/23 08:59 20 mg DAILY SARITA Administration Enoxaparin Sodium 40 mg 07/16/23 22:00 07/21/23 21:13 Enoxaparin Inj 40 Mg/0.4 Ml Syr SQ 08/15/23 21:59 40 mg Q24H SARITA Administration Fenofibrate 145 mg 07/16/23 21:00 07/21/23 21:08 Fenofibrate Nanocrystallized 145 Mg Tablet PO 08/15/23 20:59 145 mg QPM SARITA Administration Finasteride 5 mg 07/17/23 09:00 07/22/23 08:38 Finasteride 5 Mg Tab PO 08/16/23 08:59 5 mg QAM SARITA Administration Furosemide 40 mg 07/17/23 09:00 07/18/23 10:02 Furosemide 40 Mg/4 Ml Vial IV 08/16/23 08:59 40 mg DAILY SARITA Administration Gabapentin 300 mg 07/16/23 21:00 07/22/23 08:38 Gabapentin 300 Mg Cap PO 08/15/23 20:59 300 mg TID SARITA Administration Lactated Ringer's 1,000 mls @ 80 mls/hr 07/21/23 08:45 07/22/23 08:41 Lr IV 08/20/23 08:44 80 mls/hr .[id number] SARITA Administration Insulin Aspart 0 units 07/16/23 21:00 07/22/23 08:43 Insulin Aspart Per Unit Charge SC 08/15/23 20:59 Not Given ACHS SARITA Lisinopril 10 mg 07/17/23 17:30 07/18/23 09:56 Lisinopril 10 Mg Tab PO 08/16/23 17:29 10 mg QAM SARITA Administration Mineral Oil 30 ml 07/16/23 21:30 07/21/23 21:08 Mineral Oil 30 Ml Udc PO 08/15/23 21:29 30 ml QPM SARITA Administration Miscellaneous 15 - 30 gm 07/16/23 20:45 07/18/23 08:20 Carbohydrates For Hypoglycemia PO 08/15/23 20:44 15 gm UD PRN Administration Hypoglycemia Protocol Multivitamins 1 tab 07/17/23 09:00 07/22/23 08:38 Multivitamin Tab PO 08/16/23 08:59 1 tab QAM SARITA Administration Polyethylene Glycol 17 gm 07/17/23 17:45 07/22/23 08:39 Polyethylene (Miralax) 17 Gm Pack PO 08/16/23 17:44 17 gm DAILY SARITA Administration Pregabalin 50 mg 07/16/23 21:00 07/22/23 08:41 Pregabalin 50 Mg Cap PO 08/15/23 20:59 50 mg BID SARITA Administration Psyllium Hydrophilic Mucilloid 1 pkt 07/17/23 09:00 07/22/23 08:38 Psyllium Or Guar Gum Fiber Powder Packet PO 08/16/23 08:59 1 pkt QAM SARITA Administration Rosuvastatin Calcium 20 mg 07/16/23 21:00 07/21/23 21:09 Rosuvastatin Calcium 20 Mg Tab PO 08/15/23 20:59 20 mg HS SARITA Administration Sennosides 8.6 mg 07/17/23 09:00 07/22/23 08:38 Senna 8.6 Mg Tab PO 08/16/23 08:59 8.6 mg DAILY SARITA Administration Tamsulosin HCl 0.4 mg 07/16/23 21:00 07/21/23 21:09 Tamsulosin Hcl 0.4 Mg Cap PO 08/15/23 20:59 0.4 mg HS SARITA Administration
[2023-07-22] MEDS ORDERED: PIPER/TAZO 4.5g in D5W MINI-B 100 ML IV ONE (13:15)
--- NOTE | 2023-07-22 13:24 | XRay Report ---
KUB HISTORY: Acute generalized abdominal pain assess for constipation, bowel impaction COMPARISON: 05/16/2022 FINDINGS: Nonobstructive bowel gas pattern. Lumbar fusion hardware with SI joint bubbles. Battery pac k projects over the left abdomen. Visualized catheter appears unremarkable. Cardiomegaly with median sternotomy. Mild colonic fecal retention. No renal calculi. No ureteral calculi. No pneumoperitoneum or pneumatosis. No fracture. IMPRESSION: 1. Nonobstructive bowel gas pattern. 2. No radiographic evidence of constipation. ACT 112: Negative or not required by law. The above report was generated using voice recognition software. It may contain grammatical, syntax o r spelling errors. Electronically signed by: Jae Smyth M.D. 07/22/2023 1:23 PM
[2023-07-22 14:36] LABS: Appearance Urine Cloudy (Clear); Bacteria Urine Automated Negative (Negative); Bilirubin Urine Negative (Negative); Blood Urine Negative (Negative); Color Urine Yellow; Epithelial Cell Urine Auto >30 /lpf (0-5); Glucose Urine UA Negative (Negative); Ketones Urine Negative (Negative); Leukocyte Esterase Urine Trace (Negative); Nitrite Urine Negative (Negative); Protein Urine Negative (Negative); RBC Urine Automated 0-4 /hpf (0-4); Specific Gravity Urine 1.012 (1.000-1.030); Urobilinogen Urine Negative (Negative)
[2023-07-22] MEDS: PIPERACILLIN/TAZOBACTAM 4.5 GM in DEXTROSE 5% MINI-B 100 ML IV SCH (19:55)
[2023-07-22] MEDS: TAMSULOSIN HCL 0.4 MG CAP PO SCH (21:32)
[2023-07-22] MEDS: ROSUVASTATIN CALCIUM 20 MG TAB PO SCH (21:32)
[2023-07-22] MEDS: MINERAL OIL 30 ML UDC PO SCH (21:33)
[2023-07-22] MEDS: ENOXAPARIN INJ 40 MG/0.4 ML SYR SQ SCH (21:34)
[2023-07-22] MEDS: FENOFIBRATE NANOCRYSTALLIZED 145 MG TABLET PO SCH (22:14)
[2023-07-23] MEDS: PIPERACILLIN/TAZOBACTAM 4.5 GM in DEXTROSE 5% MINI-B 100 ML IV SCH ×2 (03:18→11:36)
[2023-07-23 07:46] LABS: Hematocrit (blood only) 24.6 % (42.0-52.0); Mean Corpuscular Hemoglobin 30.1 pg (25.0-34.0); Mean Corpuscular Hgb Conc 32.5 g/dL (32.0-36.0); Mean Corpuscular Volume 92.5 fL (80.0-100.0); Mean Platelet Volume 10.1 fL (9.4-12.4); Platelet Count 277 K/uL (130-400); RDW Coefficient of Variation 15.5 % (11.5-14.5); RDW Standard Deviation 51.6 fL (36.4-46.3); Red Blood Count 2.66 M/uL (4.70-6.10); White Blood Count 6.64 K/ul (4.8-10.8)
--- NOTE | 2023-07-23 07:46 | Hospitalist Progress Note ---
Date of Service July 23, 2023 Assessment & Plan (1) Adult failure to thrive: (2) Bilateral edema of lower extremity: (3) Ambulatory dysfunction: (4) Elevated CPK: (5) S/P insertion of intrathecal pump: (6) Myelomalacia of cervical cord: (7) Cellulitis: Plan Mr. Yepez is an 83 year old gentleman with PMHx significant for chronic pain with morphine pump, DMII and BPH admitted for placement per family, needing 3 people at home to help move him. Patient was noted to have lower extremity edema upon admission, which improved with IV diuersis. ECHO did not revealed diastolic dysfunction, but questionable PHTN. Further diuresis limited 2/2 SRAVANI, which is improving with cessation of lasix. Patient with elevated CK since admission, will offer gentle IVF withplans to d/c once level stable. Ortho evaluated patient, no surgical intervention given complex comorbidities m aking patient poor candidate. Broadened coverage with zosyn on 07/22 2/2 fevers and clinically poor appearance--appears much better; notably lesion on buttock concerning for shingles recurrence. Will discontinue Zosyn given negative infectious work up and pursue recurrent shingles treatment with contact precations #Fever*improved #Recurrent shingles Patient clammy and not "feeling welll" on exam; denies URI symptoms New lesions on buttock c/w herpes zoster Continue Zosyn for 24 hours, plan to d/c if no further bacterial infection yield on work up Start Valacyclovir 1g TID for 5 days for outbreak, then continue 1g daily for ppx Contact precautions during active lesions Mupirocin topical to prevent superimposed infection #Ambulatory Dysfunction, myopathy #thoracic myelopathy #Failed Laminectomy syndrome Freq falls happening at home, pt with bruising on chest CK elevated, downtrended, not currently on IVF due to being on diuretics PT/OT, pending placement CM consult for placement needs in this situation Ortho evaluated patient given left leg sensory loss and bilateral motor weakness: no surgical intervention given comorbidities #Rhabdomyolysis -CK elevated on admission, now 623, gentle IV hydration iso SRAVANI/elevated CK--improving with gentle hydration -CK <500, will stop IVF 2/2 edema #Lower extremity edema Pt with significant lower extremity edema Chest xray with noted cardiomegaly; Echo 60% EF, pHTN, LVH Swelling near resolved on exam, no reported heart failure Hold on lasix, will assess prn need contingent on fluid status and SRAVANI #Left upper extremity edema Appears acute, per patient progressed since admission -LUE doppler negative for acute process, not tolerating IV water pill -Elevate LUE #SRAVANI *improving CTM #CKD stage III GFR ranges in 40s since 2019 Received IV lasix 40 07/18 Hold diuersis, CTM--near baseline at this time #LLE swelling and erythema *improving Doppler US LLE with low suspicion for clot Completed course of antibiotics for presumptive cellutlitis on admission #DMII Hgba1c of 7.4 Holding home meds Basal/Bolus insulin while hospitalized- noted that pt hypoglycemic in the AM. Holding basal insulin #HTN On coreg 25mg BID Lisinopril held- continue to monitor BP #Chronic Pain Has morphine pump managed by [facility] management Consult placed to pain management for further pain management recs while in hosp Also on gabapentin, lyrica (noted both are gabapentinoids), cymbalta, tylenol for pain. Continue bowel regimen for chronic narcotic use- scheduled sennokot and metamucil, miralax ordered as pt on a pump Pain Consult placed on 07/16 #Constipation Continue bowel regimen for chronic narcotic use -scheduled sennokot and metamucil, miralax as pt on a morphine pump BM 07/22 #HLD continue home statin BPH/LUTS continue home meds Diet: Low sodium, DMII DVT prophylaxis: Lovenox CODE STATUS: DNR/DNI per POLST form family has present in the room Dispo: Family requesting placement. Complex CM consult placed. Pending auth. Admission and Anticipated Discharge Date Admission Date: July 16, 2023 Subjective Patient reports feeling much improved this am, no further fevers and feels cheerful Denies any new concerns, just ongoing chronic weakness--pain mostly 2/2 positioning Review of Systems Review of Systems: All systems reviewed & are unremarkable except as noted in Subjective Physical Exam Constitutional: WD/WN, vitals as above Respiratory: normal respiratory effort, lungs clear to auscultation Cardiovascular: RRR, no murmur, no edema Gastrointestinal (Abdomen): normal bowel sounds, soft, nontender, no hepatosplenomegaly Skin: reduced LUE edema, pitting edema on dorsum of bilateral feet Results & Data Results & Data Vital Signs (Past 12 Hours) Vital Signs Temp Pulse Pulse Resp BP Pulse Ox O2 Del Method 07/23/23 06:53 64 07/22/23 22:00 76 07/23/23 04:15 36.6 C 97 H 16 125/64 93 Room Air 07/23/23 00:00 37.2 C 73 20 127/61 93 Room Air 07/22/23 21:40 Nasal Cannula O2 Flow Rate 07/23/23 06:53 07/22/23 22:00 07/23/23 04:15 07/23/23 00:00 07/22/23 21:40 2 Laboratory Results Short CBC 07/23/23 Range/Units 07:10 WBC 6.64 (4.8-10.8) K/ul Hgb 8.0 L (14.0-18.0) g/dl Hct 24.6 L (42.0-52.0) % Plt Count 277 (130-400) K/uL BMP 07/23/23 07:10 Sodium 135 L Potassium 4.4 Chloride 101 Carbon Dioxide 28 BUN 70 H Creatinine 1.58 H Glucose 99 Calcium 8.7 Cardiac Enzymes 07/23/23 Range/Units 07:10 Total Creatine Kinase 338 H (30-223) U/L Urine 07/22/23 Range/Units Unknown Urine Color Yellow Urine Appearance Cloudy A (Clear) Urine pH 5.0 (4.5-7.5) Ur Specific [place] 1.012 (1.000-1.030) Urine Protein Negative (Negative) Urine Glucose (UA) Negative (Negative) Medications Administered Home Medications Medication Instructions Recorded Confirmed Last Taken carvedilol 25 mg tablet 25 mg PO BID 06/11/18 07/16/23 07/16/23 allopurinol 300 mg tablet 300 mg PO QAM #30 tabs 11/02/18 07/16/23 07/16/23 semaglutide 1 mg/dose (2 mg/1.5 2 mg subcut WK 01/10/19 07/16/23 07/11/23 mL) subcutaneous pen injector (Ozempic) fenofibrate nanocrystallized 145 145 mg PO QPM 05/22/19 07/16/23 07/15/23 mg tablet rosuvastatin 20 mg tablet 20 mg PO HS 05/22/19 07/16/23 07/15/23 tamsulosin 0.4 mg capsule 0.4 mg PO HS #90 caps 06/10/20 07/16/23 07/15/23 finasteride 5 mg tablet 5 mg PO QAM 05/07/21 07/16/23 07/16/23 mineral oil 30 ml PO QPM 05/07/21 07/16/23 07/15/23 multivitamin 1 tab PO QAM 05/07/21 07/16/23 07/16/23 psyllium husk 3.4 gram/5.4 gram 1 tbsp PO QAM 05/07/21 07/16/23 07/16/23 oral powder (Metamucil) MoRPHine PAIN PUMP 1 pump intrathecal UD #1 unit 04/27/22 07/16/23 07/16/23 naloxone 4 mg/actuation nasal 1 spray intranasal Q3M PRN opioid 04/27/22 07/16/23 Unknown spray (Narcan) overdose #2 ea dapagliflozin propanediol 5 mg 5 mg PO DAILY 05/11/22 07/16/23 07/16/23 tablet (Farxiga) insulin degludec 100 unit/mL 34 unit subcut HS 05/11/22 07/16/23 07/15/23 subcutaneous solution (Tresiba U-100 Insulin) acetaminophen 650 mg 650 - 1,300 mg PO Q8H 12/02/22 07/16/23 07/16/23 tablet,extended release (Tylenol 8 Hour) duloxetine 20 mg capsule,delayed 20 mg PO DAILY 12/02/22 07/16/23 07/15/23 release gabapentin 300 mg capsule 300 mg PO TID 12/02/22 07/16/23 07/16/23 sennosides 8.6 mg tablet (Natural 8.6 mg PO DAILY 12/02/22 07/16/23 07/15/23 Senna Laxative) aspirin 81 mg tablet,delayed 81 mg PO QAM 12/21/22 07/16/23 07/16/23 release (Aspir-) pregabalin 50 mg capsule (Lyrica) 50 mg PO BID 07/16/23 07/16/23 Unknown valacyclovir 1 gram tablet 1,000 mg PO TID 07/16/23 07/16/23 Unknown (Valtrex) Active Medications Generic Name Dose Route Start Last Admin Trade Name Freq PRN Reason Stop Dose Admin Acetaminophen 1,000 mg 07/18/23 16:56 07/20/23 21:26 Acetaminophen 500 Mg Tab PO 08/17/23 16:55 1,000 mg Q8H PRN Administration Pain Allopurinol 300 mg 07/17/23 09:00 07/23/23 08:52 Allopurinol 300 Mg Tab PO 08/16/23 08:59 300 mg QAM SARITA Administration Aspirin 81 mg 07/17/23 09:00 07/23/23 08:52 Aspirin 81 Mg Ectab PO 08/16/23 08:59 81 mg QAM SARITA Administration Carvedilol 25 mg 07/16/23 21:00 07/23/23 08:51 Carvedilol 25 Mg Tab PO 08/15/23 20:59 25 mg BID SARITA Administration Duloxetine HCl 20 mg 07/17/23 09:00 07/23/23 08:52 Duloxetine Hcl 20 Mg Cap PO 08/16/23 08:59 20 mg DAILY SARITA Administration Enoxaparin Sodium 40 mg 07/16/23 22:00 07/22/23 21:34 Enoxaparin Inj 40 Mg/0.4 Ml Syr SQ 08/15/23 21:59 40 mg Q24H SARITA Administration Fenofibrate 145 mg 07/16/23 21:00 07/22/23 22:14 Fenofibrate Nanocrystallized 145 Mg Tablet PO 08/15/23 20:59 145 mg QPM SARITA Administration Finasteride 5 mg 07/17/23 09:00 07/23/23 08:52 Finasteride 5 Mg Tab PO 08/16/23 08:59 5 mg QAM SARITA Administration Furosemide 40 mg 07/17/23 09:00 07/18/23 10:02 Furosemide 40 Mg/4 Ml Vial IV 08/16/23 08:59 40 mg DAILY SARITA Administration Gabapentin 300 mg 07/16/23 21:00 07/23/23 08:52 Gabapentin 300 Mg Cap PO 08/15/23 20:59 300 mg TID SARITA Administration Piperacillin Sod/Tazobactam 100 mls @ 25 mls/hr 07/22/23 19:00 07/23/23 11:36 Sod 4.5 gm/ Dextrose IV 07/24/23 12:59 25 mls/hr Q8H SARITA Administration Protocol Insulin Aspart 0 units 07/16/23 21:00 07/23/23 13:27 Insulin Aspart Per Unit Charge SC 08/15/23 20:59 4 units ACHS SARITA Administration Lisinopril 10 mg 07/17/23 17:30 07/18/23 09:56 Lisinopril 10 Mg Tab PO 08/16/23 17:29 10 mg QAM SARITA Administration Mineral Oil 30 ml 07/16/23 21:30 07/22/23 21:33 Mineral Oil 30 Ml Udc PO 08/15/23 21:29 30 ml QPM SARITA Administration Miscellaneous 15 - 30 gm 07/16/23 20:45 07/18/23 08:20 Carbohydrates For Hypoglycemia PO 08/15/23 20:44 15 gm UD PRN Administration Hypoglycemia Protocol Multivitamins 1 tab 07/17/23 09:00 07/23/23 08:52 Multivitamin Tab PO 08/16/23 08:59 1 tab QAM SARITA Administration Mupirocin 1 appln 07/23/23 09:00 07/23/23 10:43 Mupirocin 2% Oint 22 Gm Tube EXT 08/22/23 08:59 1 appln TID SARITA Administration Polyethylene Glycol 17 gm 07/22/23 14:00 07/23/23 08:53 Polyethylene (Miralax) 17 Gm Pack PO 08/21/23 13:59 Not Given TID SARITA Pregabalin 50 mg 07/16/23 21:00 07/23/23 08:56 Pregabalin 50 Mg Cap PO 08/15/23 20:59 50 mg BID SARITA Administration Psyllium Hydrophilic Mucilloid 1 pkt 07/23/23 09:00 07/23/23 08:53 Psyllium Or Guar Gum Fiber Powder Packet PO 08/22/23 08:59 1 pkt QAM SARITA Administration Rosuvastatin Calcium 20 mg 07/16/23 21:00 07/22/23 21:32 Rosuvastatin Calcium 20 Mg Tab PO 08/15/23 20:59 20 mg HS SARITA Administration Sennosides 8.6 mg 07/22/23 13:00 07/23/23 08:52 Senna 8.6 Mg Tab PO 08/21/23 12:59 8.6 mg BID SARITA Administration Tamsulosin HCl 0.4 mg 07/16/23 21:00 07/22/23 21:32 Tamsulosin Hcl 0.4 Mg Cap PO 08/15/23 20:59 0.4 mg HS SARITA Administration Valacyclovir HCl 1,000 mg 07/23/23 07:40 07/23/23 10:42 Valacyclovir Hcl 500 Mg Tablet PO 07/30/23 07:39 1,000 mg BID SARITA Administration
[2023-07-23 08:15] LABS: BUN Creatinine Ratio 44.3 (10-20); Calcium 8.7 mg/dl (8.6-10.3); Creatinine Clr Calc Pharmacy 45.7 ml/min; Est GFR (African American) 46.5 ml/min; Est GFR (Non-African American) 40.1 ml/min; Magnesium 2.4 mg/dl (1.7-2.4); Phosphorus 3.7 mg/dl (2.5-4.9); Potassium 4.4 mmol/L (3.5-5.1)
[2023-07-23] MEDS: carvediloL 25 MG TAB PO SCH ×2 (08:51→22:07)
[2023-07-23] MEDS: MULTIVITAMIN TAB PO SCH (08:52)
[2023-07-23] MEDS: DULoxetine HCL 20 MG CAP PO SCH (08:52)
[2023-07-23] MEDS: GABAPENTIN 300 MG CAP PO SCH ×3 (08:52→22:08)
[2023-07-23] MEDS: SENNA 8.6 MG TAB PO SCH ×2 (08:52→22:11)
[2023-07-23] MEDS: ASPIRIN 81 MG ECTAB PO SCH (08:52)
[2023-07-23] MEDS: FINASTERIDE 5 MG TAB PO SCH (08:52)
[2023-07-23] MEDS: allopurinoL 300 MG TAB PO SCH (08:52)
[2023-07-23] MEDS: PSYLLIUM or GUAR GUM FIBER POWDER PACKET PO SCH (08:53)
[2023-07-23] MEDS: POLYETHYLENE (MIRALAX) 17 GM PACK PO SCH ×3 (08:53→22:11)
[2023-07-23] MEDS: INSULIN ASPART PER UNIT CHARGE SC SCH ×4 (08:54→22:02)
[2023-07-23] MEDS: PREGABALIN 50 MG CAP PO SCH ×2 (08:56→22:11)
[2023-07-23] MEDS: LACTATED RINGER'S 1,000 ML IV SCH (10:42)
[2023-07-23] MEDS: valACYclovir HCL 500 MG TABLET PO SCH ×2 (10:42→22:12)
[2023-07-23] MEDS: MUPIROCIN 2% OINT 22 GM TUBE EXT SCH ×3 (10:43→22:10)
[2023-07-23] MEDS: FENOFIBRATE NANOCRYSTALLIZED 145 MG TABLET PO SCH (22:08)
[2023-07-23] MEDS: MINERAL OIL 30 ML UDC PO SCH (22:09)
[2023-07-23] MEDS: TAMSULOSIN HCL 0.4 MG CAP PO SCH (22:11)
[2023-07-23] MEDS: ROSUVASTATIN CALCIUM 20 MG TAB PO SCH (22:11)
[2023-07-23] MEDS: ENOXAPARIN INJ 40 MG/0.4 ML SYR SQ SCH (22:12)
[2023-07-24 07:06] LABS: Hematocrit (blood only) 26.5 % (42.0-52.0); Hemoglobin 8.3 g/dl (14.0-18.0); Mean Corpuscular Hemoglobin 29.9 pg (25.0-34.0); Mean Corpuscular Hgb Conc 31.3 g/dL (32.0-36.0); Mean Corpuscular Volume 95.3 fL (80.0-100.0); RDW Coefficient of Variation 15.4 % (11.5-14.5); RDW Standard Deviation 53.3 fL (36.4-46.3); Red Blood Count 2.78 M/uL (4.70-6.10); White Blood Count 6.41 K/ul (4.8-10.8)
[2023-07-24 07:07] LABS: Platelet Count 299 K/uL (130-400)
[2023-07-24 07:40] LABS: BUN Creatinine Ratio 38.8 (10-20); Calcium 8.7 mg/dl (8.6-10.3); Creatinine Clr Calc Pharmacy 47.5 ml/min; Est GFR (African American) 48.8 ml/min; Est GFR (Non-African American) 42.1 ml/min; Magnesium 2.3 mg/dl (1.7-2.4); Phosphorus 2.6 mg/dl (2.5-4.9); Potassium 4.4 mmol/L (3.5-5.1)
[2023-07-24] MEDS: INSULIN ASPART PER UNIT CHARGE SC SCH ×4 (09:09→21:25)
[2023-07-24] MEDS: SENNA 8.6 MG TAB PO SCH ×2 (09:11→21:32)
[2023-07-24] MEDS: PSYLLIUM or GUAR GUM FIBER POWDER PACKET PO SCH (09:11)
[2023-07-24] MEDS: GABAPENTIN 300 MG CAP PO SCH ×3 (09:12→21:24)
[2023-07-24] MEDS: carvediloL 25 MG TAB PO SCH ×2 (09:12→21:30)
[2023-07-24] MEDS: valACYclovir HCL 500 MG TABLET PO SCH ×2 (09:12→21:32)
[2023-07-24] MEDS: MULTIVITAMIN TAB PO SCH (09:13)
[2023-07-24] MEDS: MUPIROCIN 2% OINT 22 GM TUBE EXT SCH ×3 (09:13→21:30)
[2023-07-24] MEDS: FINASTERIDE 5 MG TAB PO SCH (09:13)
[2023-07-24] MEDS: allopurinoL 300 MG TAB PO SCH (09:13)
[2023-07-24] MEDS: ASPIRIN 81 MG ECTAB PO SCH (09:13)
[2023-07-24] MEDS: DULoxetine HCL 20 MG CAP PO SCH (09:13)
[2023-07-24] MEDS: POLYETHYLENE (MIRALAX) 17 GM PACK PO SCH ×3 (09:15→21:31)
[2023-07-24] MEDS: ACETAMINOPHEN 500 MG TAB PO PRN (09:16)
[2023-07-24] MEDS: PREGABALIN 50 MG CAP PO SCH ×2 (10:42→21:29)
--- NOTE | 2023-07-24 16:26 | Hospitalist Progress Note ---
Date of Service July 24, 2023 Assessment & Plan (1) Adult failure to thrive: (2) Bilateral edema of lower extremity: (3) Ambulatory dysfunction: (4) Elevated CPK: (5) S/P insertion of intrathecal pump: (6) Myelomalacia of cervical cord: (7) Cellulitis: Plan Mr. Yepez is an 83 year old gentleman with PMHx significant for chronic pain with morphine pump, DMII and BPH admitted for placement per family, needing 3 people at home to help move him. Patient was noted to have lower extremity edema upon admission, which improved with IV diuersis. ECHO did not revealed diastolic dysfunction, but questionable PHTN. Further diuresis limited 2/2 SRAVANI, which is improving with cessation of lasix. Patient with elevated CK since admission, will offer gentle IVF withplans to d/c once level stable. Ortho evaluated patient, no surgical intervention given complex comorbidities m aking patient poor candidate. Broadened coverage with zosyn on 07/22 2/2 fevers and clinically poor appearance--appears much better; notably lesion on buttock concerning for shingles recurrence. Discontinued Zosyn given negative infectious work up and pursue recurrent shingles treatment with contact precautions. Patient without new concerns, will continue to monitor. #Fever*improved #Recurrent shingles New lesions on buttock c/w herpes zoster No respiratory symptoms Continue Zosyn for 24 hours, plan to d/c if no further bacterial infection yield on work up Continue Valacyclovir 1g TID for 5 days for outbreak, then continue 1g daily for ppx Contact precautions during active lesions Mupirocin topical to prevent superimposed infection #Ambulatory Dysfunction, myopathy #thoracic myelopathy #Failed Laminectomy syndrome Freq falls happening at home, pt with bruising on chest CK elevated, downtrended, not currently on IVF due to being on diuretics PT/OT, pending placement CM consult for placement needs in this situation Ortho evaluated patient given left leg sensory loss and bilateral motor weakness: no surgical intervention given comorbidities #Rhabdomyolysis *resolved -CK elevated on admission, now 623, gentle IV hydration iso SRAVANI/elevated CK--improving with gentle hydration -CK <500, will stop IVF 2/2 edema #Lower extremity edema Pt with significant lower extremity edema Chest xray with noted cardiomegaly; Echo 60% EF, pHTN, LVH Swelling near resolved on exam, no reported heart failure Hold on lasix, will assess prn need contingent on fluid status and SRAVANI #Left upper extremity edema Appears acute, per patient progressed since admission -LUE doppler negative for acute process, not tolerating IV water pill -Elevate LUE #SRAVANI *improving CTM #CKD stage III GFR ranges in 40s since 2019 Received IV lasix 40 07/18 Hold diuersis, CTM--near baseline at this time #LLE swelling and erythema *improving Doppler US LLE with low suspicion for clot Completed course of antibiotics for presumptive cellutlitis on admission #DMII Hgba1c of 7.4 Holding home meds Basal/Bolus insulin while hospitalized- noted that pt hypoglycemic in the AM. Holding basal insulin #HTN On coreg 25mg BID Lisinopril held- continue to monitor BP #Chronic Pain Has morphine pump managed by [facility] Pain management Consult placed to pain management for further pain management recs while in hosp Also on gabapentin, lyrica (noted both are gabapentinoids), cymbalta, tylenol for pain. Continue bowel regimen for chronic narcotic use- scheduled sennokot and metamucil, miralax ordered as pt on a pump Pain Consult placed on 07/16 #Constipation Continue bowel regimen for chronic narcotic use -scheduled sennokot and metamucil, miralax as pt on a morphine pump BM 07/22 #HLD continue home statin BPH/LUTS continue home meds Diet: Low sodium, DMII DVT prophylaxis: Lovenox CODE STATUS: DNR/DNI per POLST form family has present in the room Dispo: Family requesting placement. Complex CM consult placed. Pending auth. Admission and Anticipated Discharge Date Admission Date: July 16, 2023 Subjective NAEO Denies any new concerns, just ongoing chronic weakness--pain mostly 2/2 positioning Review of Systems Review of Systems: All systems reviewed & are unremarkable except as noted in Subjective Physical Exam Constitutional: WD/WN, vitals as above Respiratory: normal respiratory effort, lungs clear to auscultation Cardiovascular: RRR, no murmur, no edema Results & Data Results & Data Vital Signs (Past 12 Hours) Vital Signs Temp Pulse Pulse Resp BP Pulse Ox O2 Del Method 07/24/23 16:07 68 07/24/23 15:21 37.8 C H 69 16 132/62 93 Room Air 07/24/23 11:45 37.2 C 68 18 170/68 H 93 Room Air 07/24/23 11:43 76 07/24/23 10:50 Room Air 07/24/23 07:48 36.7 C 71 16 137/56 L 95 Room Air Laboratory Results Short CBC 07/24/23 Range/Units 06:47 WBC 6.41 (4.8-10.8) K/ul Hgb 8.3 L (14.0-18.0) g/dl Hct 26.5 L (42.0-52.0) % Plt Count 299 (130-400) K/uL BMP 07/24/23 06:47 Sodium 136 Potassium 4.4 Chloride 103 Carbon Dioxide 29 BUN 59 H Creatinine 1.52 H Glucose 122 H Calcium 8.7 Medications Administered Home Medications Medication Instructions Recorded Confirmed Last Taken carvedilol 25 mg tablet 25 mg PO BID 06/11/18 07/16/23 07/16/23 allopurinol 300 mg tablet 300 mg PO QAM #30 tabs 11/02/18 07/16/23 07/16/23 semaglutide 1 mg/dose (2 mg/1.5 2 mg subcut WK 01/10/19 07/16/23 07/11/23 mL) subcutaneous pen injector (OzempBiomeasure) fenofibrate nanocrystallized 145 145 mg PO QPM 05/22/19 07/16/23 07/15/23 mg tablet rosuvastatin 20 mg tablet 20 mg PO HS 05/22/19 07/16/23 07/15/23 tamsulosin 0.4 mg capsule 0.4 mg PO HS #90 caps 06/10/20 07/16/23 07/15/23 finasteride 5 mg tablet 5 mg PO QAM 05/07/21 07/16/23 07/16/23 mineral oil 30 ml PO QPM 05/07/21 07/16/23 07/15/23 multivitamin 1 tab PO QAM 05/07/21 07/16/23 07/16/23 psyllium husk 3.4 gram/5.4 gram 1 tbsp PO QAM 05/07/21 07/16/23 07/16/23 oral powder (Metamucil) MoRPHine PAIN PUMP 1 pump intrathecal UD #1 unit 04/27/22 07/16/23 07/16/23 naloxone 4 mg/actuation nasal 1 spray intranasal Q3M PRN opioid 04/27/22 07/16/23 Unknown spray (Narcan) overdose #2 ea dapagliflozin propanediol 5 mg 5 mg PO DAILY 05/11/22 07/16/23 07/16/23 tablet (Farxiga) insulin degludec 100 unit/mL 34 unit subcut HS 05/11/22 07/16/23 07/15/23 subcutaneous solution (Tresiba U-100 Insulin) acetaminophen 650 mg 650 - 1,300 mg PO Q8H 12/02/22 07/16/23 07/16/23 tablet,extended release (Tylenol 8 Hour) duloxetine 20 mg capsule,delayed 20 mg PO DAILY 12/02/22 07/16/23 07/15/23 release gabapentin 300 mg capsule 300 mg PO TID 12/02/22 07/16/23 07/16/23 sennosides 8.6 mg tablet (Natural 8.6 mg PO DAILY 12/02/22 07/16/23 07/15/23 Senna Laxative) aspirin 81 mg tablet,delayed 81 mg PO QAM 12/21/22 07/16/23 07/16/23 release (Aspir-) pregabalin 50 mg capsule (Lyrica) 50 mg PO BID 07/16/23 07/16/23 Unknown valacyclovir 1 gram tablet 1,000 mg PO TID 07/16/23 07/16/23 Unknown (Valtrex) Active Medications Generic Name Dose Route Start Last Admin Trade Name Freq PRN Reason Stop Dose Admin Acetaminophen 1,000 mg 07/18/23 16:56 07/24/23 09:16 Acetaminophen 500 Mg Tab PO 08/17/23 16:55 1,000 mg Q8H PRN Administration Pain Allopurinol 300 mg 07/17/23 09:00 07/24/23 09:13 Allopurinol 300 Mg Tab PO 08/16/23 08:59 300 mg QAM SARITA Administration Aspirin 81 mg 07/17/23 09:00 07/24/23 09:13 Aspirin 81 Mg Ectab PO 08/16/23 08:59 81 mg QAM SARITA Administration Carvedilol 25 mg 07/16/23 21:00 07/24/23 09:12 Carvedilol 25 Mg Tab PO 08/15/23 20:59 25 mg BID SARITA Administration Duloxetine HCl 20 mg 07/17/23 09:00 07/24/23 09:13 Duloxetine Hcl 20 Mg Cap PO 08/16/23 08:59 20 mg DAILY SARIAT Administration Enoxaparin Sodium 40 mg 07/16/23 22:00 07/23/23 22:12 Enoxaparin Inj 40 Mg/0.4 Ml Syr SQ 08/15/23 21:59 40 mg Q24H SARITA Administration Fenofibrate 145 mg 07/16/23 21:00 07/23/23 22:08 Fenofibrate Nanocrystallized 145 Mg Tablet PO 08/15/23 20:59 145 mg QPM SARITA Administration Finasteride 5 mg 07/17/23 09:00 07/24/23 09:13 Finasteride 5 Mg Tab PO 08/16/23 08:59 5 mg QAM SARITA Administration Furosemide 40 mg 07/17/23 09:00 07/18/23 10:02 Furosemide 40 Mg/4 Ml Vial IV 08/16/23 08:59 40 mg DAILY SARITA Administration Gabapentin 300 mg 07/16/23 21:00 07/24/23 13:05 Gabapentin 300 Mg Cap PO 08/15/23 20:59 300 mg TID SARITA Administration Insulin Aspart 0 units 07/16/23 21:00 07/24/23 13:06 Insulin Aspart Per Unit Charge SC 08/15/23 20:59 3 units ACHS SARITA Administration Lisinopril 10 mg 07/17/23 17:30 07/18/23 09:56 Lisinopril 10 Mg Tab PO 08/16/23 17:29 10 mg QAM SARITA Administration Mineral Oil 30 ml 07/16/23 21:30 07/23/23 22:09 Mineral Oil 30 Ml Udc PO 08/15/23 21:29 30 ml QPM SARITA Administration Miscellaneous 15 - 30 gm 07/16/23 20:45 07/18/23 08:20 Carbohydrates For Hypoglycemia PO 08/15/23 20:44 15 gm UD PRN Administration Hypoglycemia Protocol Multivitamins 1 tab 07/17/23 09:00 07/24/23 09:13 Multivitamin Tab PO 08/16/23 08:59 1 tab QAM SARITA Administration Mupirocin 1 appln 07/23/23 09:00 07/24/23 13:05 Mupirocin 2% Oint 22 Gm Tube EXT 08/22/23 08:59 1 appln TID SARITA Administration Polyethylene Glycol 17 gm 07/22/23 14:00 07/24/23 13:06 Polyethylene (Miralax) 17 Gm Pack PO 08/21/23 13:59 Not Given TID SARITA Pregabalin 50 mg 07/16/23 21:00 07/24/23 10:42 Pregabalin 50 Mg Cap PO 08/15/23 20:59 50 mg BID SARITA Administration Psyllium Hydrophilic Mucilloid 1 pkt 07/23/23 09:00 07/24/23 09:11 Psyllium Or Guar Gum Fiber Powder Packet PO 08/22/23 08:59 1 pkt QAM SARITA Administration Rosuvastatin Calcium 20 mg 07/16/23 21:00 07/23/23 22:11 Rosuvastatin Calcium 20 Mg Tab PO 08/15/23 20:59 20 mg HS SARITA Administration Sennosides 8.6 mg 07/22/23 13:00 07/24/23 09:11 Senna 8.6 Mg Tab PO 08/21/23 12:59 8.6 mg BID SARITA Administration Tamsulosin HCl 0.4 mg 07/16/23 21:00 07/23/23 22:11 Tamsulosin Hcl 0.4 Mg Cap PO 08/15/23 20:59 0.4 mg HS SARITA Administration Valacyclovir HCl 1,000 mg 07/23/23 07:40 07/24/23 09:12 Valacyclovir Hcl 500 Mg Tablet PO 07/30/23 07:39 1,000 mg BID SARITA Administration
[2023-07-24] MEDS: FENOFIBRATE NANOCRYSTALLIZED 145 MG TABLET PO SCH (21:30)
[2023-07-24] MEDS: ROSUVASTATIN CALCIUM 20 MG TAB PO SCH (21:31)
[2023-07-24] MEDS: MINERAL OIL 30 ML UDC PO SCH (21:31)
[2023-07-24] MEDS: TAMSULOSIN HCL 0.4 MG CAP PO SCH (21:31)
[2023-07-24] MEDS: ENOXAPARIN INJ 40 MG/0.4 ML SYR SQ SCH (21:33)
[2023-07-25 06:49] LABS: Hematocrit (blood only) 25.7 % (42.0-52.0); Hemoglobin 8.2 g/dl (14.0-18.0); Mean Corpuscular Hemoglobin 30.1 pg (25.0-34.0); Mean Corpuscular Hgb Conc 31.9 g/dL (32.0-36.0); Mean Corpuscular Volume 94.5 fL (80.0-100.0); Platelet Count 324 K/uL (130-400); RDW Coefficient of Variation 15.2 % (11.5-14.5); RDW Standard Deviation 52.7 fL (36.4-46.3); Red Blood Count 2.72 M/uL (4.70-6.10); White Blood Count 5.96 K/ul (4.8-10.8)
[2023-07-25 07:06] LABS: BUN Creatinine Ratio 39.4 (10-20); Calcium 8.8 mg/dl (8.6-10.3); Creatinine Clr Calc Pharmacy 56.7 ml/min; Est GFR (African American) 60.6 ml/min; Est GFR (Non-African American) 52.3 ml/min; Magnesium 2.2 mg/dl (1.7-2.4); Phosphorus 2.5 mg/dl (2.5-4.9); Potassium 4.4 mmol/L (3.5-5.1)
--- NOTE | 2023-07-25 08:44 | Hospitalist Progress Note ---
Date of Service July 25, 2023 Assessment & Plan (1) Adult failure to thrive: (2) Bilateral edema of lower extremity: (3) Ambulatory dysfunction: (4) Elevated CPK: (5) S/P insertion of intrathecal pump: (6) Myelomalacia of cervical cord: (7) Cellulitis: Plan Mr. Yepez is an 83 year old gentleman with PMHx significant for chronic pain with morphine pump, DMII and BPH admitted for placement per family, needing 3 people at home to help move him. Patient was noted to have lower extremity edema upon admission, which improved with IV diuersis. ECHO did not revealed diastolic dysfunction, but questionable PHTN. Further diuresis limited 2/2 SRAVANI, which is improving with cessation of lasix. Patient with elevated CK since admission, will offer gentle IVF withplans to d/c once level stable. Ortho evaluated patient, no surgical intervention given complex comorbidities m aking patient poor candidate. Broadened coverage with zosyn on 07/22 2/2 fevers and clinically poor appearance--appears much better; notably lesion on buttock concerning for shingles recurrence. Discontinued Zosyn given negative infectious work up and pursue recurrent shingles treatment with contact precautions. Patient without new concerns, will continue to monitor. Patient has been medically stable now for over 48 hours and reports feeling well. Encouraged nursing and patient to keep LUE elevated 2/2 edema as much as possible. #Fever*improved #Recurrent shingles New lesions on buttock c/w herpes zoster No respiratory symptoms Continue Zosyn for 24 hours, plan to d/c if no further bacterial infection yield on work up Continue Valacyclovir 1g BID(2/2 renal function) for 5 days for outbreak, then continue 1g daily for ppx (07/30 transition to ppx) Contact precautions during active lesions Mupirocin topical to prevent superimposed infection #Ambulatory Dysfunction, myopathy #thoracic myelopathy #Failed Laminectomy syndrome Freq falls happening at home, pt with bruising on chest CK elevated, downtrended, not currently on IVF due to being on diuretics CM consult for placement needs in this situation Ortho evaluated patient given left leg sensory loss and bilateral motor weakness: no surgical intervention given comorbidities Pending placement #Rhabdomyolysis *resolved -CK elevated on admission, now 623, gentle IV hydration iso SRAVANI/elevated CK--improving with gentle hydration -CK <500, will stop IVF 2/2 edema #Lower extremity edema Pt with significant lower extremity edema Chest xray with noted cardiomegaly; Echo 60% EF, pHTN, LVH Swelling near resolved on exam, no reported heart failure Hold on lasix, will assess prn need contingent on fluid status and SRAVANI Encourage extremity elevation #Left upper extremity edema Appears acute, per patient progressed since admission -LUE doppler negative for acute process, not tolerating IV water pill -Elevate LUE #SRAVANI *improving CTM #CKD stage III GFR ranges in 40s since 2019 Received IV lasix 40 07/18 Hold diuersis, CTM--near baseline at this time #LLE swelling and erythema *improving Doppler US LLE with low suspicion for clot Completed course of antibiotics for presumptive cellulitis on admission #DMII Hgba1c of 7.4 Holding home meds Basal/Bolus insulin while hospitalized- noted that pt hypoglycemic in the AM. Holding basal insulin #HTN On coreg 25mg BID Lisinopril held- continue to monitor BP #Chronic Pain Has morphine pump managed by [facility] Consult placed to pain management for further pain management recs while in hosp Also on gabapentin, lyrica (noted both are gabapentinoids), cymbalta, tylenol for pain. Continue bowel regimen for chronic narcotic use- scheduled sennokot and metamucil, miralax ordered as pt on a pump Pain Consult placed on 07/16 #Constipation Continue bowel regimen for chronic narcotic use -scheduled sennokot and metamucil, miralax as pt on a morphine pump BM 07/22 #HLD continue home statin BPH/LUTS continue home meds Diet: Low sodium, DMII DVT prophylaxis: Lovenox CODE STATUS: DNR/DNI per POLST form family has present in the room Dispo: Family requesting placement. Complex CM consult placed. Pending auth. and accepting facility Admission and Anticipated Discharge Date Admission Date: July 16, 2023 Subjective NAEO Denies any new concerns; states he feels very well today and pain is at its baseline Review of Systems Review of Systems: All systems reviewed & are unremarkable except as noted in Subjective Physical Exam Constitutional: WD/WN, vitals as above Respiratory: normal respiratory effort, lungs clear to auscultation Cardiovascular: RRR no murmur Gastrointestinal (Abdomen): normal bowel sounds, soft, nontender, no hepatosplenomegaly Skin: fluctuating LUE edema, typically when arm is at side minimal pedal edema on dorsum of feet Results & Data Results & Data Vital Signs (Past 12 Hours) Vital Signs Temp Pulse Pulse Resp BP Pulse Ox O2 Del Method 07/25/23 07:23 69 07/25/23 04:00 36.9 C 69 18 149/61 H 94 Room Air 07/24/23 22:05 76 07/25/23 00:39 36.8 C 72 20 175/61 H 92 Room Air Laboratory Results Short CBC 07/25/23 Range/Units 06:12 WBC 5.96 (4.8-10.8) K/ul Hgb 8.2 L (14.0-18.0) g/dl Hct 25.7 L (42.0-52.0) % Plt Count 324 (130-400) K/uL BMP 07/25/23 06:12 Sodium 135 L Potassium 4.4 Chloride 102 Carbon Dioxide 29 BUN 50 H Creatinine 1.27 Glucose 121 H Calcium 8.8 Medications Administered Home Medications Medication Instructions Recorded Confirmed Last Taken carvedilol 25 mg tablet 25 mg PO BID 06/11/18 07/16/23 07/16/23 allopurinol 300 mg tablet 300 mg PO QAM #30 tabs 11/02/18 07/16/23 07/16/23 semaglutide 1 mg/dose (2 mg/1.5 2 mg subcut WK 01/10/19 07/16/23 07/11/23 mL) subcutaneous pen injector (Ozempic) fenofibrate nanocrystallized 145 145 mg PO QPM 05/22/19 07/16/23 07/15/23 mg tablet rosuvastatin 20 mg tablet 20 mg PO HS 05/22/19 07/16/23 07/15/23 tamsulosin 0.4 mg capsule 0.4 mg PO HS #90 caps 06/10/20 07/16/23 07/15/23 finasteride 5 mg tablet 5 mg PO QAM 05/07/21 07/16/23 07/16/23 mineral oil 30 ml PO QPM 05/07/21 07/16/23 07/15/23 multivitamin 1 tab PO QAM 05/07/21 07/16/23 07/16/23 psyllium husk 3.4 gram/5.4 gram 1 tbsp PO QAM 05/07/21 07/16/23 07/16/23 oral powder (Metamucil) MoRPHine PAIN PUMP 1 pump intrathecal UD #1 unit 04/27/22 07/16/23 07/16/23 naloxone 4 mg/actuation nasal 1 spray intranasal Q3M PRN opioid 04/27/22 07/16/23 Unknown spray (Narcan) overdose #2 ea dapagliflozin propanediol 5 mg 5 mg PO DAILY 05/11/22 07/16/23 07/16/23 tablet (Farxiga) insulin degludec 100 unit/mL 34 unit subcut HS 05/11/22 07/16/23 07/15/23 subcutaneous solution (Tresiba U-100 Insulin) acetaminophen 650 mg 650 - 1,300 mg PO Q8H 12/02/22 07/16/23 07/16/23 tablet,extended release (Tylenol 8 Hour) duloxetine 20 mg capsule,delayed 20 mg PO DAILY 12/02/22 07/16/23 07/15/23 release gabapentin 300 mg capsule 300 mg PO TID 12/02/22 07/16/23 07/16/23 sennosides 8.6 mg tablet (Natural 8.6 mg PO DAILY 12/02/22 07/16/23 07/15/23 Senna Laxative) aspirin 81 mg tablet,delayed 81 mg PO QAM 12/21/22 07/16/23 07/16/23 release (Aspir-) pregabalin 50 mg capsule (Lyrica) 50 mg PO BID 07/16/23 07/16/23 Unknown valacyclovir 1 gram tablet 1,000 mg PO TID 07/16/23 07/16/23 Unknown (Valtrex) Active Medications Generic Name Dose Route Start Last Admin Trade Name Freq PRN Reason Stop Dose Admin Acetaminophen 1,000 mg 07/24/23 16:27 07/25/23 15:01 Acetaminophen 500 Mg Tab PO 08/17/23 16:55 1,000 mg Q8H PRN Administration Pain/fever Allopurinol 300 mg 07/17/23 09:00 07/25/23 09:58 Allopurinol 300 Mg Tab PO 08/16/23 08:59 300 mg QAM SARITA Administration Aspirin 81 mg 07/17/23 09:00 07/25/23 09:57 Aspirin 81 Mg Ectab PO 08/16/23 08:59 81 mg QAM SARITA Administration Carvedilol 25 mg 07/16/23 21:00 07/25/23 09:59 Carvedilol 25 Mg Tab PO 08/15/23 20:59 25 mg BID SARITA Administration Duloxetine HCl 20 mg 07/17/23 09:00 07/25/23 09:58 Duloxetine Hcl 20 Mg Cap PO 08/16/23 08:59 20 mg DAILY SARITA Administration Enoxaparin Sodium 40 mg 07/16/23 22:00 07/24/23 21:33 Enoxaparin Inj 40 Mg/0.4 Ml Syr SQ 08/15/23 21:59 40 mg Q24H SARITA Administration Fenofibrate 145 mg 07/16/23 21:00 07/24/23 21:30 Fenofibrate Nanocrystallized 145 Mg Tablet PO 08/15/23 20:59 145 mg QPM SARITA Administration Finasteride 5 mg 07/17/23 09:00 07/25/23 09:58 Finasteride 5 Mg Tab PO 08/16/23 08:59 5 mg QAM SARITA Administration Furosemide 40 mg 07/17/23 09:00 07/18/23 10:02 Furosemide 40 Mg/4 Ml Vial IV 08/16/23 08:59 40 mg DAILY SARITA Administration Gabapentin 300 mg 07/16/23 21:00 07/25/23 14:51 Gabapentin 300 Mg Cap PO 08/15/23 20:59 300 mg TID SARITA Administration Insulin Aspart 0 units 07/16/23 21:00 07/25/23 12:41 Insulin Aspart Per Unit Charge SC 08/15/23 20:59 3 units ACHS SARITA Administration Lisinopril 10 mg 07/17/23 17:30 07/18/23 09:56 Lisinopril 10 Mg Tab PO 08/16/23 17:29 10 mg QAM SARITA Administration Mineral Oil 30 ml 07/16/23 21:30 07/24/23 21:31 Mineral Oil 30 Ml Udc PO 08/15/23 21:29 30 ml QPM SARITA Administration Miscellaneous 15 - 30 gm 07/16/23 20:45 07/18/23 08:20 Carbohydrates For Hypoglycemia PO 08/15/23 20:44 15 gm UD PRN Administration Hypoglycemia Protocol Multivitamins 1 tab 07/17/23 09:00 07/25/23 09:58 Multivitamin Tab PO 08/16/23 08:59 1 tab QAM SARITA Administration Mupirocin 1 appln 07/23/23 09:00 07/25/23 14:52 Mupirocin 2% Oint 22 Gm Tube EXT 08/22/23 08:59 1 appln TID SARITA Administration Polyethylene Glycol 17 gm 07/22/23 14:00 07/25/23 14:50 Polyethylene (Miralax) 17 Gm Pack PO 08/21/23 13:59 17 gm TID SARITA Administration Pregabalin 50 mg 07/16/23 21:00 07/25/23 10:14 Pregabalin 50 Mg Cap PO 08/15/23 20:59 50 mg BID SARITA Administration Psyllium Hydrophilic Mucilloid 1 pkt 07/23/23 09:00 07/25/23 09:58 Psyllium Or Guar Gum Fiber Powder Packet PO 08/22/23 08:59 1 pkt QAM SARITA Administration Rosuvastatin Calcium 20 mg 07/16/23 21:00 07/24/23 21:31 Rosuvastatin Calcium 20 Mg Tab PO 08/15/23 20:59 20 mg HS SARITA Administration Sennosides 8.6 mg 07/22/23 13:00 07/25/23 09:57 Senna 8.6 Mg Tab PO 08/21/23 12:59 8.6 mg BID SARITA Administration Tamsulosin HCl 0.4 mg 07/16/23 21:00 07/24/23 21:31 Tamsulosin Hcl 0.4 Mg Cap PO 08/15/23 20:59 0.4 mg HS SARITA Administration Valacyclovir HCl 1,000 mg 07/23/23 07:40 07/25/23 09:57 Valacyclovir Hcl 500 Mg Tablet PO 07/30/23 07:39 1,000 mg BID SARITA Administration
[2023-07-25] MEDS: ASPIRIN 81 MG ECTAB PO SCH (09:57)
[2023-07-25] MEDS: valACYclovir HCL 500 MG TABLET PO SCH ×2 (09:57→21:40)
[2023-07-25] MEDS: SENNA 8.6 MG TAB PO SCH ×2 (09:57→21:38)
[2023-07-25] MEDS: DULoxetine HCL 20 MG CAP PO SCH (09:58)
[2023-07-25] MEDS: PSYLLIUM or GUAR GUM FIBER POWDER PACKET PO SCH (09:58)
[2023-07-25] MEDS: allopurinoL 300 MG TAB PO SCH (09:58)
[2023-07-25] MEDS: GABAPENTIN 300 MG CAP PO SCH ×3 (09:58→21:39)
[2023-07-25] MEDS: FINASTERIDE 5 MG TAB PO SCH (09:58)
[2023-07-25] MEDS: MULTIVITAMIN TAB PO SCH (09:58)
[2023-07-25] MEDS: MUPIROCIN 2% OINT 22 GM TUBE EXT SCH ×3 (09:59→21:39)
[2023-07-25] MEDS: carvediloL 25 MG TAB PO SCH ×2 (09:59→21:37)
[2023-07-25] MEDS: POLYETHYLENE (MIRALAX) 17 GM PACK PO SCH ×3 (10:00→21:40)
[2023-07-25] MEDS: INSULIN ASPART PER UNIT CHARGE SC SCH ×4 (10:13→21:35)
[2023-07-25] MEDS: PREGABALIN 50 MG CAP PO SCH ×2 (10:14→21:36)
[2023-07-25] MEDS: ACETAMINOPHEN 500 MG TAB PO PRN (15:01)
[2023-07-25] MEDS: MINERAL OIL 30 ML UDC PO SCH (21:37)
[2023-07-25] MEDS: FENOFIBRATE NANOCRYSTALLIZED 145 MG TABLET PO SCH (21:37)
[2023-07-25] MEDS: ROSUVASTATIN CALCIUM 20 MG TAB PO SCH (21:38)
[2023-07-25] MEDS: TAMSULOSIN HCL 0.4 MG CAP PO SCH (21:38)
[2023-07-25] MEDS: ENOXAPARIN INJ 40 MG/0.4 ML SYR SQ SCH (21:43)
[2023-07-26 06:14] LABS: Hematocrit (blood only) 25.9 % (42.0-52.0); Hemoglobin 8.2 g/dl (14.0-18.0); Mean Corpuscular Hgb Conc 31.7 g/dL (32.0-36.0); Mean Corpuscular Volume 94.9 fL (80.0-100.0); Mean Platelet Volume 9.7 fL (9.4-12.4); Platelet Count 361 K/uL (130-400); RDW Coefficient of Variation 15.4 % (11.5-14.5); RDW Standard Deviation 53.3 fL (36.4-46.3); Red Blood Count 2.73 M/uL (4.70-6.10); White Blood Count 6.34 K/ul (4.8-10.8)
[2023-07-26 06:34] LABS: BUN Creatinine Ratio 37.2 (10-20); Creatinine Clr Calc Pharmacy 59.7 ml/min; Est GFR (African American) 64.2 ml/min; Est GFR (Non-African American) 55.4 ml/min; Phosphorus 2.2 mg/dl (2.5-4.9); Potassium 4.4 mmol/L (3.5-5.1)
[2023-07-26] MEDS: ASPIRIN 81 MG ECTAB PO SCH (08:39)
[2023-07-26] MEDS: DULoxetine HCL 20 MG CAP PO SCH (08:39)
[2023-07-26] MEDS: allopurinoL 300 MG TAB PO SCH (08:39)
[2023-07-26] MEDS: GABAPENTIN 300 MG CAP PO SCH ×3 (08:40→20:38)
[2023-07-26] MEDS: PSYLLIUM or GUAR GUM FIBER POWDER PACKET PO SCH (08:40)
[2023-07-26] MEDS: carvediloL 25 MG TAB PO SCH ×2 (08:40→20:38)
[2023-07-26] MEDS: valACYclovir HCL 500 MG TABLET PO SCH ×3 (08:40→20:39)
[2023-07-26] MEDS: POLYETHYLENE (MIRALAX) 17 GM PACK PO SCH ×3 (08:40→20:40)
[2023-07-26] MEDS: FINASTERIDE 5 MG TAB PO SCH (08:41)
[2023-07-26] MEDS: MULTIVITAMIN TAB PO SCH (08:41)
[2023-07-26] MEDS: SENNA 8.6 MG TAB PO SCH ×2 (08:41→20:39)
[2023-07-26] MEDS: MUPIROCIN 2% OINT 22 GM TUBE EXT SCH ×3 (08:41→20:40)
[2023-07-26] MEDS: PREGABALIN 50 MG CAP PO SCH ×2 (08:46→20:38)
[2023-07-26] MEDS: INSULIN ASPART PER UNIT CHARGE SC SCH ×4 (08:50→20:40)
--- NOTE | 2023-07-26 09:44 | Hospitalist Progress Note ---
Date of Service July 26, 2023 Assessment & Plan (1) Adult failure to thrive: (2) Bilateral edema of lower extremity: (3) Ambulatory dysfunction: (4) Elevated CPK: (5) S/P insertion of intrathecal pump: (6) Myelomalacia of cervical cord: (7) Cellulitis: Plan Mr. Yepez is an 83 year old gentleman with PMHx significant for chronic pain with morphine pump, DMII and BPH admitted for placement per family, after a few weeks of generalized progressive weakness. Patient was noted to have lower extremity edema upon admission, which improved with IV diuersis. ECHO did not revealed diastolic dysfunction, but questionable PHTN. Further diuresis limited 2/2 SRAVANI, which is improving with cessation of lasix on 07/18. Patient with elevated CK since admission, IVF given fro 48 hours and stopped on 07/23 [facility] evaluated patient given chronic persistent lower back pain with new onset severe weakness in both of his legs. This was felt to be infection affecting his underlying failed laminectomy syndrome. No surgical intervention given complex comorbidities making patient poor candidate. Broadened coverage with zosyn on 07/22 2/2 fevers and clinically poor appearance--appears much better; notably lesion on buttock concerning for shingles recurrence. Discontinued Zosyn given negative infectious work up and pursue recurrent shingles treatment with contact precautions. Patient without new concerns, will continue to monitor. Patient has been medically stable now for over 48 hours and reports feeling well. Encouraged nursing and patient to keep LUE elevated 2/2 edema as much as possible. #Fever*improved #Recurrent shingles New lesions on buttock c/w herpes zoster No respiratory symptoms Zosyn stopped Continue Valacyclovir 1g TID for 5 days for outbreak, then continue 1g daily for ppx (07/30 transition to ppx) Contact precautions during active lesions Mupirocin topical to prevent superimposed infection #Ambulatory Dysfunction, myopathy #thoracic myelopathy #Failed Laminectomy syndrome Freq falls happening at home, pt with bruising on chest CK elevated, downtrended CM consult for placement needs in this situation Ortho evaluated patient given left leg sensory loss and bilateral motor weakn ess: no surgical intervention given comorbidities Pending placement #Rhabdomyolysis *resolved -CK elevated on admission, now 623, gentle IV hydration iso SRAVANI/elevated CK-- improving with gentle hydration -CK <500, will stop IVF 2/2 edema #Lower extremity edema Pt with significant lower extremity edema Chest xray with noted cardiomegaly; Echo 60% EF, pHTN, LVH Swelling near resolved on exam but is present in his hands/upper extremities now, likely related to poor movement/weakness, no reported heart failure With resolution of SRAVANI, will start small oral dose of lasix to see if this will improve. Encourage extremity elevation and ambulation OOB to chair as tolerated. #Left upper extremity edema Appears acute, per patient progressed since admission -LUE doppler negative for acute process, not tolerating IV water pill -Elevate LUE 07/26: both upper extremities now swollen, small dose Lasix to start in am as noted above. #SRAVANI *resolved #CKD stage III GFR ranges in 40s since 2019 Received IV lasix 40 07/18 #LLE swelling and erythema *improving Doppler US LLE with low suspicion for clot Completed course of antibiotics for presumptive cellulitis on admission #DMII Hgba1c of 7.4 Holding home meds Basal/Bolus insulin while hospitalized- noted that pt hypoglycemic in the AM. Holding basal insulin #HTN On coreg 25mg BID Lisinopril held- continue to monitor BP #Chronic Pain Has morphine pump managed by [facility] management Consult placed to pain management for further pain management recs while in hosp Also on gabapentin, lyrica (noted both are gabapentinoids), cymbalta, tylenol for pain. Continue bowel regimen for chronic narcotic use- scheduled sennokot and metamucil, miralax ordered as pt on a pump Pain Consult placed on 07/16 #Constipation Continue bowel regimen for chronic narcotic use -scheduled sennokot and metamucil, miralax as pt on a morphine pump BM 07/22 #HLD continue home statin BPH/LUTS continue home meds Diet: Low sodium, DMII DVT prophylaxis: Lovenox CODE STATUS: DNR/DNI per POLST form family has present in the room Dispo: SNF I spent a total [id number] coordinating, documenting, and providing care for this patient excluding time spent in the performance of separately billed services Angelica Finch DO [facility] Hospitalist Admission and Anticipated Discharge Date Admission Date: July 16, 2023 Subjective 83-year-old man with progressive weakness for the last few weeks. Tonight the patient is intermittently confused making review of systems difficult Patient reports no pain from his shingles rash Valtrex was increased to 3 times daily given improvement in renal function Physical Exam Physical Exam: CONSTITUTIONAL: obese, vitals as above, generally appears weak but in NAD EYES: normal conjunctivae, no scleral icterus ENT: external ear and nose normal, MMM NECK: trachea midline RESPIRATORY: clear to auscultation bilaterally, no crackles, rales or wheezes, normal respiratory effort --limited exam given difficulty moving around in bed/body habitus CARDIOVASCULAR: regular rate and rhythm, S1 and 2 heard without murmurs, gallops or rubs, no JVD, some noted UE swelling kerry in his hands, and no edema in legs. CHEST: inspection of chest was normal GASTROINTESTINAL: soft, nontender, ND, no guarding MUSCULOSKELETAL: generalized weakness, he was able to bed both of his knees equally, head is normocephalic and atraumatic SKIN: warm and dry NEUROLOGIC: CN 2-12 grossly intact, unable to elicit DTRs in knees, no sensory deficit, normal cognition, normal speech, no tremor PSYCHIATRIC: alert cooperative and intermittently answering questions appropriately, but then will start talking about a door that was actually a window and others who are seen but not actually present in the room. Told a story about some cooked food in a box and everyone was taking it from him? Results & Data Results & Data Vital Signs (Past 12 Hours) Vital Signs Temp Pulse Pulse Resp BP Pulse Ox O2 Del Method 07/26/23 07:30 Room Air 07/26/23 07:50 36.7 C 76 20 166/52 H 95 Room Air 07/26/23 07:00 68 07/25/23 22:05 67 07/26/23 00:00 36.8 C 74 20 154/54 H 95 Room Air Laboratory Results Short CBC 07/26/23 Range/Units 05:52 WBC 6.34 (4.8-10.8) K/ul Hgb 8.2 L (14.0-18.0) g/dl Hct 25.9 L (42.0-52.0) % Plt Count 361 (130-400) K/uL BMP 07/26/23 05:52 Sodium 137 Potassium 4.4 Chloride 103 Carbon Dioxide 28 BUN 45 H Creatinine 1.21 Glucose 112 H Calcium 9.0 Medications Administered Current Inpatient Medications Acetaminophen (Acetaminophen 500 Mg Tab) 1,000 mg PO Q8H PRN PRN Reason: Pain/fever Stop: 08/17/23 16:55 Last Admin: 07/25/23 15:01 Dose: 1,000 mg Allopurinol (Allopurinol 300 Mg Tab) 300 mg PO QAM SARITA Stop: 08/16/23 08:59 Last Admin: 07/26/23 08:39 Dose: 300 mg Aspirin (Aspirin 81 Mg Ectab) 81 mg PO QAM SARITA Stop: 08/16/23 08:59 Last Admin: 07/26/23 08:39 Dose: 81 mg Carvedilol (Carvedilol 25 Mg Tab) 25 mg PO BID SARITA Stop: 08/15/23 20:59 Last Admin: 07/26/23 08:40 Dose: 25 mg Dextrose (Dextrose 50% 50 Ml Syringe) 25 - 50 ml IV UD PRN; Protocol PRN Reason: Hypoglycemia Protocol Stop: 08/15/23 20:44 Duloxetine HCl (Duloxetine Hcl 20 Mg Cap) 20 mg PO DAILY SARITA Stop: 08/16/23 08:59 Last Admin: 07/26/23 08:39 Dose: 20 mg Enoxaparin Sodium (Enoxaparin Inj 40 Mg/0.4 Ml Syr) 40 mg SQ Q24H SARITA Stop: 08/15/23 21:59 Last Admin: 07/25/23 21:43 Dose: 40 mg Fenofibrate (Fenofibrate Nanocrystallized 145 Mg Tablet) 145 mg PO QPM SARITA Stop: 08/15/23 20:59 Last Admin: 07/25/23 21:37 Dose: 145 mg Finasteride (Finasteride 5 Mg Tab) 5 mg PO QAM SARITA Stop: 08/16/23 08:59 Last Admin: 07/26/23 08:41 Dose: 5 mg Furosemide (Furosemide 40 Mg/4 Ml Vial) 40 mg IV DAILY SARITA Stop: 08/16/23 08:59 Last Admin: 07/18/23 10:02 Dose: 40 mg Gabapentin (Gabapentin 300 Mg Cap) 300 mg PO TID SARITA Stop: 08/15/23 20:59 Last Admin: 07/26/23 08:40 Dose: 300 mg Glucagon (Glucagon For Inj 1 Mg Vial) 1 mg SQ UD PRN; Protocol PRN Reason: Hypoglycemia Protocol Stop: 08/15/23 20:44 Glucose (Glucose 10 Tab/Tube) 4 - 8 tab PO UD PRN; Protocol PRN Reason: Hypoglycemia Treatment Stop: 08/15/23 20:44 Glucose (Glucose 40% Gel 15 Gm Tube) 15 - 30 gm PO UD PRN; Protocol PRN Reason: Hypoglycemia Protocol Stop: 08/15/23 20:44 Insulin Aspart (Insulin Aspart Per Unit Charge) 0 units SC ACHS [facility] Stop: 08/15/23 20:59 Last Admin: 07/26/23 08:50 Dose: 4 units Lisinopril (Lisinopril 10 Mg Tab) 10 mg PO QAM [facility] Stop: 08/16/23 17:29 Last Admin: 07/18/23 09:56 Dose: 10 mg Mineral Oil (Mineral Oil 30 Ml Udc) 30 ml PO QPM SARITA Stop: 08/15/23 21:29 Last Admin: 07/25/23 21:37 Dose: 30 ml Miscellaneous (Carbohydrates For Hypoglycemia ) 15 - 30 gm PO UD PRN PRN Reason: Hypoglycemia Protocol Stop: 08/15/23 20:44 Last Admin: 07/18/23 08:20 Dose: 15 gm Morphine Sulfate (Morphine Pain Pump) 1 pump IT UD [facility] Stop: 08/15/23 19:14 Multivitamins (Multivitamin Tab) 1 tab PO QAM [facility] Stop: 08/16/23 08:59 Last Admin: 07/26/23 08:41 Dose: 1 tab Mupirocin (Mupirocin 2% Oint 22 Gm Tube) 1 appln EXT TID [facility] Stop: 08/22/23 08:59 Last Admin: 07/26/23 08:41 Dose: 1 appln Naloxone HCl (Naloxone Hcl 0.4 Mg/1 Ml Vial/Carp) 0.1 mg IV Q5M PRN PRN Reason: OVERSEDATION/RESP DEPRESSION Stop: 08/15/23 21:18 Polyethylene Glycol (Polyethylene (Miralax) 17 Gm Pack) 17 gm PO TID [facility] Stop: 08/21/23 13:59 Last Admin: 07/26/23 08:40 Dose: 17 gm Pregabalin (Pregabalin 50 Mg Cap) 50 mg PO BID [facility] Stop: 08/15/23 20:59 Last Admin: 07/26/23 08:46 Dose: 50 mg Psyllium Hydrophilic Mucilloid (Psyllium Or Guar Gum Fiber Powder Packet) 1 pkt PO QAM [facility] Stop: 08/22/23 08:59 Last Admin: 07/26/23 08:40 Dose: 1 pkt Rosuvastatin Calcium (Rosuvastatin Calcium 20 Mg Tab) 20 mg PO [facility] Stop: 08/15/23 20:59 Last Admin: 07/25/23 21:38 Dose: 20 mg Sennosides (Senna 8.6 Mg Tab) 8.6 mg PO BID [facility] Stop: 08/21/23 12:59 Last Admin: 07/26/23 08:41 Dose: 8.6 mg Tamsulosin HCl (Tamsulosin Hcl 0.4 Mg Cap) 0.4 mg PO [facility] Stop: 08/15/23 20:59 Last Admin: 07/25/23 21:38 Dose: 0.4 mg Valacyclovir HCl (Valacyclovir Hcl 500 Mg Tablet) 1,000 mg PO BID [facility] Stop: 07/30/23 07:39 Last Admin: 07/26/23 08:40 Dose: 1,000 mg
[2023-07-26] MEDS: TAMSULOSIN HCL 0.4 MG CAP PO SCH (20:38)
[2023-07-26] MEDS: FENOFIBRATE NANOCRYSTALLIZED 145 MG TABLET PO SCH (20:38)
[2023-07-26] MEDS: ENOXAPARIN INJ 40 MG/0.4 ML SYR SQ SCH (20:38)
[2023-07-26] MEDS: ROSUVASTATIN CALCIUM 20 MG TAB PO SCH (20:38)
[2023-07-26] MEDS: MINERAL OIL 30 ML UDC PO SCH (20:40)
[2023-07-27 05:47] LABS: Hematocrit (blood only) 26.2 % (42.0-52.0); Hemoglobin 8.5 g/dl (14.0-18.0); Mean Corpuscular Hemoglobin 30.5 pg (25.0-34.0); Mean Corpuscular Hgb Conc 32.4 g/dL (32.0-36.0); Mean Corpuscular Volume 93.9 fL (80.0-100.0); Mean Platelet Volume 9.5 fL (9.4-12.4); Platelet Count 379 K/uL (130-400); RDW Coefficient of Variation 15.3 % (11.5-14.5); RDW Standard Deviation 52.5 fL (36.4-46.3); Red Blood Count 2.79 M/uL (4.70-6.10)
[2023-07-27 06:02] LABS: BUN Creatinine Ratio 34.8 (10-20); Creatinine Clr Calc Pharmacy 53.5 ml/min; Est GFR (African American) 56.3 ml/min; Est GFR (Non-African American) 48.5 ml/min; Magnesium 1.9 mg/dl (1.7-2.4); Phosphorus 2.3 mg/dl (2.5-4.9); Potassium 4.6 mmol/L (3.5-5.1)
[2023-07-27] MEDS: FINASTERIDE 5 MG TAB PO SCH (08:48)
[2023-07-27] MEDS: valACYclovir HCL 500 MG TABLET PO SCH ×2 (08:48→13:43)
[2023-07-27] MEDS: GABAPENTIN 300 MG CAP PO SCH ×3 (08:48→22:22)
[2023-07-27] MEDS: POLYETHYLENE (MIRALAX) 17 GM PACK PO SCH ×3 (08:48→22:20)
[2023-07-27] MEDS: ASPIRIN 81 MG ECTAB PO SCH (08:49)
[2023-07-27] MEDS: SENNA 8.6 MG TAB PO SCH ×2 (08:49→22:20)
[2023-07-27] MEDS: carvediloL 25 MG TAB PO SCH ×2 (08:49→22:22)
[2023-07-27] MEDS: MULTIVITAMIN TAB PO SCH (08:49)
[2023-07-27] MEDS: DULoxetine HCL 20 MG CAP PO SCH (08:49)
[2023-07-27] MEDS: allopurinoL 300 MG TAB PO SCH (08:49)
[2023-07-27] MEDS: MUPIROCIN 2% OINT 22 GM TUBE EXT SCH ×3 (08:50→23:05)
[2023-07-27] MEDS: FUROSEMIDE 20 MG TAB PO SCH (08:50)
[2023-07-27] MEDS: PREGABALIN 50 MG CAP PO SCH ×2 (08:51→22:19)
[2023-07-27] MEDS: INSULIN ASPART PER UNIT CHARGE SC SCH ×4 (08:52→22:20)
--- NOTE | 2023-07-27 09:33 | Hospitalist Progress Note ---
Date of Service July 27, 2023 Assessment & Plan (1) Adult failure to thrive: (2) Bilateral edema of lower extremity: (3) Ambulatory dysfunction: (4) Elevated CPK: (5) S/P insertion of intrathecal pump: (6) Myelomalacia of cervical cord: (7) Cellulitis: Plan Mr. Yepez is an 83 year old gentleman with PMHx significant for chronic pain with morphine pump, DMII and BPH admitted for placement per family, after a few weeks of generalized progressive weakness. Patient was noted to have lower extremity edema upon admission, which improved with IV diuresis. ECHO did not revealed diastolic dysfunction, but questionable PHTN. Further diuresis limited 2/2 SRAVANI, which is improving with cessation of lasix on 07/18. Patient with elevated CK since admission, IVF given fro 48 hours and stopped on 07/23 [facility] evaluated patient given chronic persistent lower back pain with new onset severe weakness in both of his legs. This was felt to be infection affecting his underlying failed laminectomy syndrome. No surgical intervention given complex comorbidities making patient poor candidate. Broadened coverage with zosyn on 07/22 2/2 fevers and clinically poor appearance--appears much better; notably lesion on buttock concerning for shingles recurrence. Discontinued Zosyn given negative infectious work up and pursue recurrent shingles treatment with contact precautions. Patient without new concerns, will continue to monitor. Patient has been medically stable now for over 48 hours and reports feeling well. Encouraged nursing and patient to keep LUE elevated 2/2 edema as much as possible and turn q2h as able. Also with significant weakness, reached out to Neurology who will formally consult. Initial suggestions included consideration for stopping statin, fibrate and allopurinol as all of these may contribute to myopathy (noted elevated CK). Will await further recommendations. #Fever*improved #Recurrent shingles New lesions on buttock c/w herpes zoster No respiratory symptoms Zosyn stopped Continue Valacyclovir 1g TID for 5 days for outbreak, then continue 1g daily for ppx (07/30 transition to ppx) Contact precautions during active lesions Mupirocin topical to prevent superimposed infection #Ambulatory Dysfunction, myopathy #thoracic myelopathy #Failed Laminectomy syndrome Freq falls happening at home, pt with bruising on chest CK elevated, downtrended CM consult for placement needs in this situation Ortho evaluated patient given left leg sensory loss and bilateral motor weakness: no surgical intervention given comorbidities Pending placement #Rhabdomyolysis *resolved -CK elevated on admission, now 623, gentle IV hydration iso SRAVANI/elevated CK--improving with gentle hydration -CK <500, will stop IVF 2/2 edema #Lower extremity edema Pt with significant lower extremity edema Chest xray with noted cardiomegaly; Echo 60% EF, pHTN, LVH Swelling near resolved on exam but is present in his hands/upper extremities now, likely related to poor movement/weakness, no reported heart failure With resolution of SRAVANI, will start small oral dose of lasix to see if this will improve. Encourage extremity elevation and ambulation OOB to chair as tolerated. #Left upper extremity edema Appears acute, per patient progressed since admission -LUE doppler negative for acute process, not tolerating IV water pill -Elevate LUE 07/26: both upper extremities now swollen, small dose Lasix to start in am as noted above. 07/27: edema still present, cont daily Lasix #SRAVANI *resolved #CKD stage III GFR ranges in 40s since 2019 Received IV lasix 40 07/18 #LLE swelling and erythema *improving Doppler US LLE with low suspicion for clot Completed course of antibiotics for presumptive cellulitis on admission #DMII Hgba1c of 7.4 Holding home meds Basal/Bolus insulin while hospitalized- noted that pt hypoglycemic in the AM. basal insulin held. (07/27): SLight rise to 200s -->tightened Novolog correction #HTN On coreg 25mg BID Lisinopril held- will restart now with BP rising slightly cont low dose Lasix #Chronic Pain Has morphine pump managed by [facility] management Consult placed to pain management for further pain management recs while in hosp Also on gabapentin, lyrica (noted both are gabapentinoids), cymbalta, tylenol for pain. Continue bowel regimen for chronic narcotic use- scheduled sennokot and metamucil, miralax ordered as pt on a pump Pain Consult placed on 07/16 #Constipation Continue bowel regimen for chronic narcotic use -scheduled sennokot and metamucil, miralax as pt on a morphine pump BM 07/22 #HLD hold home statin and fibrate as may contribute to elevated CK and worsening myopathy. BPH/LUTS continue home meds Diet: Low sodium, DMII DVT prophylaxis: Lovenox CODE STATUS: DNR/DNI per POLST form family has present in the room Dispo: SNF I spent a total [id number] coordinating, documenting, and providing care for this patient excluding time spent in the performance of separately billed services DO [facility] Admission and Anticipated Discharge Date Admission Date: July 16, 2023 Subjective 83-year-old man with progressive weakness for the last few weeks. He lives alone in a single home reporting that a caregiver comes to his home once daily to assist him with feeds and all other cares provided by his family. He is unable to feed himself and has been nonambulatory for approximately 6 months using either a wheelchair or power scooter for mobility. He requires assistance of 2 people to perform transfers typically. Currently being evaluated for placement as he does not have assistance available from 10 PM to 8 AM despite help of family members. Multiple recent falls and progressive weakness. Confusion resolved today He is so weak, although he can lift his head off the pillow this is very intentional and he has almost no ability to move his extremities against gravity He is unsure if weakness progresses as the day wears on At baseline was listed as weak from chronic cervical and lumbar pain with radiculopathy and a morphine pain pump. Patient reports no pain from his shingles rash Valtrex was increased to 3 times daily given improvement in renal function Cannot visualize but per RN these areas are healing well and all blisters have broken open Physical Exam Physical Exam: CONSTITUTIONAL: obese, vitals as above, generally appears weak but in NAD EYES: normal conjunctivae, no scleral icterus ENT: external ear and nose normal, MMM NECK: trachea midline RESPIRATORY: clear to auscultation bilaterally, no crackles, rales or wheezes, normal respiratory effort --limited exam given difficulty moving around in bed/body habitus CARDIOVASCULAR: regular rate and rhythm, S1 and 2 heard without murmurs, gallops or rubs, no JVD, some noted UE swelling kerry in his hands, and no edema in legs. CHEST: inspection of chest was normal GASTROINTESTINAL: soft, nontender, ND, no guarding MUSCULOSKELETAL: generalized weakness, 2/5 strength throughout, he was able to bed both of his knees equally but slowly, can barely lift his arms up off the bed, head is normocephalic and atraumatic SKIN: warm and dry, unable to visualize shingles rash NEUROLOGIC: CN 2-12 grossly intact, unable to elicit DTRs in knees or brachioradialis, no sensory deficit, normal cognition, normal speech, no tremor PSYCHIATRIC: alert cooperative and answering questions appropriately, oriented Results & Data Results & Data Vital Signs (Past 12 Hours) Vital Signs Temp Pulse Pulse Resp BP Pulse Ox O2 Del Method 07/27/23 08:00 Room Air 07/27/23 08:00 74 07/27/23 07:30 37.0 C 74 18 139/53 L 95 Room Air 07/27/23 04:45 36.6 C 75 18 144/54 H 93 Room Air 07/26/23 23:01 36.6 C 78 18 161/48 H 90 Room Air 07/26/23 21:59 75 Laboratory Results Short CBC 07/27/23 Range/Units 05:31 WBC 6.80 (4.8-10.8) K/ul Hgb 8.5 L (14.0-18.0) g/dl Hct 26.2 L (42.0-52.0) % Plt Count 379 (130-400) K/uL [facility] 07/27/23 05:31 Sodium 136 Potassium 4.6 Chloride 102 Carbon Dioxide 28 BUN 47 H Creatinine 1.35 Glucose 129 H Calcium 9.0 Medications Administered Current Inpatient Medications Acetaminophen (Acetaminophen 500 Mg Tab) 1,000 mg PO Q8H PRN PRN Reason: Pain/fever Stop: 08/17/23 16:55 Last Admin: 07/25/23 15:01 Dose: 1,000 mg Allopurinol (Allopurinol 300 Mg Tab) 300 mg PO QAM SARITA Stop: 08/16/23 08:59 Last Admin: 07/27/23 08:49 Dose: 300 mg Aspirin (Aspirin 81 Mg Ectab) 81 mg PO QAM SARITA Stop: 08/16/23 08:59 Last Admin: 07/27/23 08:49 Dose: 81 mg Carvedilol (Carvedilol 25 Mg Tab) 25 mg PO BID SARITA Stop: 08/15/23 20:59 Last Admin: 07/27/23 08:49 Dose: 25 mg Dextrose (Dextrose 50% 50 Ml Syringe) 25 - 50 ml IV UD PRN; Protocol PRN Reason: Hypoglycemia Protocol Stop: 08/15/23 20:44 Duloxetine HCl (Duloxetine Hcl 20 Mg Cap) 20 mg PO DAILY SARITA Stop: 08/16/23 08:59 Last Admin: 07/27/23 08:49 Dose: 20 mg Enoxaparin Sodium (Enoxaparin Inj 40 Mg/0.4 Ml Syr) 40 mg SQ Q24H SARITA Stop: 08/15/23 21:59 Last Admin: 07/26/23 20:38 Dose: 40 mg Fenofibrate (Fenofibrate Nanocrystallized 145 Mg Tablet) 145 mg PO QPM SARITA Stop: 08/15/23 20:59 Last Admin: 07/26/23 20:38 Dose: 145 mg Finasteride (Finasteride 5 Mg Tab) 5 mg PO QAM SARITA Stop: 08/16/23 08:59 Last Admin: 07/27/23 08:48 Dose: 5 mg Furosemide (Furosemide 20 Mg Tab) 20 mg PO QAM [facility]ITA Stop: 08/26/23 08:59 Last Admin: 07/27/23 08:50 Dose: 20 mg Gabapentin (Gabapentin 300 Mg Cap) 300 mg PO TID SARITA Stop: 08/15/23 20:59 Last Admin: 07/27/23 08:48 Dose: 300 mg Glucagon (Glucagon For Inj 1 Mg Vial) 1 mg SQ UD PRN; Protocol PRN Reason: Hypoglycemia Protocol Stop: 08/15/23 20:44 Glucose (Glucose 10 Tab/Tube) 4 - 8 tab PO UD PRN; Protocol PRN Reason: Hypoglycemia Treatment Stop: 08/15/23 20:44 Glucose (Glucose 40% Gel 15 Gm Tube) 15 - 30 gm PO UD PRN; Protocol PRN Reason: Hypoglycemia Protocol Stop: 08/15/23 20:44 Insulin Aspart (Insulin Aspart Per Unit Charge) 0 units SC ACHS SARITA Stop: 08/15/23 20:59 Last Admin: 07/27/23 08:52 Dose: 7 units Lisinopril (Lisinopril 10 Mg Tab) 10 mg PO QAM SARITA Stop: 08/16/23 17:29 Last Admin: 07/18/23 09:56 Dose: 10 mg Mineral Oil (Mineral Oil 30 Ml Udc) 30 ml PO QPM SARITA Stop: 08/15/23 21:29 Last Admin: 07/26/23 20:40 Dose: 30 ml Miscellaneous (Carbohydrates For Hypoglycemia ) 15 - 30 gm PO UD PRN PRN Reason: Hypoglycemia Protocol Stop: 08/15/23 20:44 Last Admin: 07/18/23 08:20 Dose: 15 gm Morphine Sulfate (Morphine Pain Pump) 1 pump IT UD [facility] Stop: 08/15/23 19:14 Multivitamins (Multivitamin Tab) 1 tab PO QAM [facility] Stop: 08/16/23 08:59 Last Admin: 07/27/23 08:49 Dose: 1 tab Mupirocin (Mupirocin 2% Oint 22 Gm Tube) 1 appln EXT TID [facility] Stop: 08/22/23 08:59 Last Admin: 07/27/23 08:50 Dose: 1 appln Naloxone HCl (Naloxone Hcl 0.4 Mg/1 Ml Vial/Carp) 0.1 mg IV Q5M PRN PRN Reason: OVERSEDATION/RESP DEPRESSION Stop: 08/15/23 21:18 Polyethylene Glycol (Polyethylene (Miralax) 17 Gm Pack) 17 gm PO TID [facility] Stop: 08/21/23 13:59 Last Admin: 07/27/23 08:48 Dose: 17 gm Pregabalin (Pregabalin 50 Mg Cap) 50 mg PO BID [facility] Stop: 08/15/23 20:59 Last Admin: 07/27/23 08:51 Dose: 50 mg Psyllium Hydrophilic Mucilloid (Psyllium Or Guar Gum Fiber Powder Packet) 1 pkt PO QAM [facility] Stop: 08/22/23 08:59 Last Admin: 07/26/23 08:40 Dose: 1 pkt Rosuvastatin Calcium (Rosuvastatin Calcium 20 Mg Tab) 20 mg PO HS [facility] Stop: 08/15/23 20:59 Last Admin: 07/26/23 20:38 Dose: 20 mg Sennosides (Senna 8.6 Mg Tab) 8.6 mg PO BID [facility] Stop: 08/21/23 12:59 Last Admin: 07/27/23 08:49 Dose: 8.6 mg Tamsulosin HCl (Tamsulosin Hcl 0.4 Mg Cap) 0.4 mg PO HS [facility] Stop: 08/15/23 20:59 Last Admin: 07/26/23 20:38 Dose: 0.4 mg Valacyclovir HCl (Valacyclovir Hcl 500 Mg Tablet) 1,000 mg PO TID [facility]; Protocol Stop: 07/30/23 13:59 Last Admin: 07/27/23 08:48 Dose: 1,000 mg
[2023-07-27] MEDS: ACETAMINOPHEN 500 MG TAB PO PRN (18:19)
--- NOTE | 2023-07-27 18:58 | Neurology Consultation ---
Date of Consultation July 27, 2023 Assessment & Plan (1) Elevated CPK: Forest Yepez is an 83 yo M presenting with acute on chronic weakness with elevated CK on admission. While I expect this is likely secondary to completion of a high cervical cord injury around C6, we should try to correct any treatable causes of profound weakness with elevated CK (myopathy). Elevated CK can be seen with high SCI due to lack of muscle movements and dependent edema. However CK can also be elevated due to medications - he is on 3 muscle toxic meds, which should be discontinued: crestor, fenofibrate and allopurinol. Finally, I am concerned that he has disseminated zoster as he has visible skin lesions over 2 dermatomes and seemed to significantly worsen corresponding to when shingles started. Disseminated zoster can cause severe proximal muscle weakness and a myopathy and would not be treated with valacyclovir. Recommend switching to IV acyclovir. -- Consider switching to IV acyclovir -- Stop crestor, fenofibrate and allopurinol -- Otherwise appropriate for rehab as any recovery would take weeks/months. -- Please contact us with any further questions. Telehealth Consultation Telehealth Information Telehealth Information: I performed this visit using a real-time telehealth connection between my location and the patients location ([facility]). After connecting through interactive tele-video, patient was identified by name and date of and/or wristband check.Patient (or authorized healthcare outside energy sales representatives) was informed that this was a telemedicine visit and it was being conducted confidentially over secure lines. My office door was closed and no one else was present in the room with me.Patient (or authorized healthcare outside energy sales representatives) provided consent to proceed with the visit, expressed an understanding of privacy and security of the telemedicine visit, and gave permission to have a hospital outside energy sales representatives in the room in order to assist with the visit and to conduct portions of the visit, as needed. I informed the patient (or authorized healthcare outside energy sales representatives) that I reviewed their record and presented the opportunity for them to ask any questions regarding the visit today. The patient agreed to participate. History of Present Illness Reason for Consultation: Progressive weakness Requesting Physician: Dr. Finch Attending Physician: Angelica Finch, DO History of Present Illness Forest Yepez is an 84 yo M presenting with worsening weakness and failure to thrive at home. His son is at bedside and able to assist with the history. The patient reports that he has had a history of multiple back surgeries and second to pain and weakness of his leg has been wheelchair bound since at least 2020. However, up until 3-4 weeks ago he was able to transfer on his own and complete his ADLs with some family assistance. In the weeks prior to the hospital stay he had fallen multiple times during those transfer and trying to get into bed with the help of multiple family members. It became too difficult secondary to his significant weakness and he was brought to [facility]. Family believes that the zoster rash on his back/buttock were present prior to admission. Since admission he feels his weakness has worsened while the edema in his lower extremities has greatly improved. He is now fully dependent on all care, unable to lift his arms off the bed or reposition himself. Denies any new neck or back pain but has chronic low back pain. He did not improve with antibiotics given for a possible UTI. He denies ever experiencing muscle pain, no change in the color of his urine, no specific injury to his neck he can recall. He has not started or changed any of his medication in the past few months. He also has seen many shira geons in the past and recognizes he is not a candidate for surgery to his spine. Allergies Allergy/AdvReac Type Severity Reaction Status Date / Time cyclobenzaprine AdvReac Severe Disorientation, Verified 07/16/23 16:00 confusion Home Medications Medication Instructions Recorded Confirmed Type carvedilol 25 mg tablet 25 mg PO BID 06/11/18 07/16/23 History allopurinol 300 mg tablet 300 mg PO QAM #30 tabs 11/02/18 07/16/23 Rx semaglutide 1 mg/dose (2 mg/1.5 2 mg subcut WK 01/10/19 07/16/23 History mL) subcutaneous pen injector (Ozempic) fenofibrate nanocrystallized 145 145 mg PO QPM 05/22/19 07/16/23 History mg tablet rosuvastatin 20 mg tablet 20 mg PO HS 05/22/19 07/16/23 History tamsulosin 0.4 mg capsule 0.4 mg PO HS #90 caps 06/10/20 07/16/23 Rx finasteride 5 mg tablet 5 mg PO QAM 05/07/21 07/16/23 History mineral oil 30 ml PO QPM 05/07/21 07/16/23 History multivitamin 1 tab PO QAM 05/07/21 07/16/23 History psyllium husk 3.4 gram/5.4 gram 1 tbsp PO QAM 05/07/21 07/16/23 History oral powder (Metamucil) MoRPHine PAIN PUMP 1 pump intrathecal UD #1 unit 04/27/22 07/16/23 Rx naloxone 4 mg/actuation nasal 1 spray intranasal Q3M PRN opioid 04/27/22 07/16/23 Rx spray (Narcan) overdose #2 ea dapagliflozin propanediol 5 mg 5 mg PO DAILY 05/11/22 07/16/23 History tablet (Farxiga) insulin degludec 100 unit/mL 34 unit subcut HS 05/11/22 07/16/23 History subcutaneous solution (Tresiba U-100 Insulin) acetaminophen 650 mg 650 - 1,300 mg PO Q8H 12/02/22 07/16/23 History tablet,extended release (Tylenol 8 Hour) duloxetine 20 mg capsule,delayed 20 mg PO DAILY 12/02/22 07/16/23 History release gabapentin 300 mg capsule 300 mg PO TID 12/02/22 07/16/23 History sennosides 8.6 mg tablet (Natural 8.6 mg PO DAILY 12/02/22 07/16/23 History Senna Laxative) aspirin 81 mg tablet,delayed 81 mg PO QAM 12/21/22 07/16/23 History release (Aspir-) pregabalin 50 mg capsule (Lyrica) 50 mg PO BID 07/16/23 07/16/23 History valacyclovir 1 gram tablet 1,000 mg PO TID 07/16/23 07/16/23 History (Valtrex) Patient History Medical History Anemia Chronic Carotid artery stenosis s/p left CEA (2006) CKD (chronic kidney disease) Coronary artery disease CABG x2 (2006) Follows Dr. York ([place]) Diabetes mellitus, type 2 IDDM Dyslipidemia Frozen shoulder Gout History of atrial fibrillation s/p radiofrequency ablation (2011) Follows Dr. York ([place]) History of blood transfusion Post-op (2017) History of kidney stones Hx of atrial flutter 4:1 AV conduction s/p cardioversion x2 and subsequent successful RFA (2011) Hx of sleep apnea Refuses CPAP per records Uses oxygen 2L HS N/C Hypertension Myelomalacia of cervical cord Myofascial pain Obesity Postlaminectomy syndrome of lumbosacral region Presence of intrathecal pump Prostate cancer s/p radiation (2016) Spinal stenosis Weakness Surgical History H/O cardiac radiofrequency ablation atrial flutter converted to NSR History of cystoscopy + stent (08/06/18): MAC sedation at [facility] History of difficult intubation L2-S1 fusion 06/19/2014 - "poor visualization with MAC 4. Glidescope #4 utilized. Lg tongue with much soft tissue." History of lumbar fusion x 4 back surgeries History of open reduction and internal fixation (ORIF) procedure R/L ankles () History of surgery Morphine epidural pump trial (03/01/22): MAC at [facility]. No issues noted per post- op anesthesia progress note. S/P CABG x 2 FRANCO-LAD; LAD-D1 SUB BRANCH (2006) S/P carotid endarterectomy Left (2006) S/P insertion of intrathecal pump Family History Grandmother Diabetes Other Alzheimer disease Prostate cancer Social History Smoking Status: Current some day smoker Tobacco Type: Cigars Second Hand Exposure: No; Do You Dip or Chew Tobacco: No; Hx Alcohol Use: No Hx Substance Use: No Preferred Language: [place] Communication Ability: Effective Communication Ability Comment: SLIGHT HEARD OF HEARING Visual Impairment: No Limitations Amphibian Crewmember Required: No Beliefs That Will Affect Care: None marital status: / Current Living Situation: Alone current occupational status: retired How many Children do You have: 4 Feels Safe at Home: Yes Safety Concerns: Feels Safe At This Time Assistive Devices: Hospital Bed, Lift Chair, Oxygen - at Night and Scooter/Electric Scooter Assistive Devices Comment: "mauricio chair" Review of Systems +weakness Physical Exam Neurological Examination: Mental Status: Awake and alert. Oriented to person, place, and time. Fluent. Comprehension intact. Affect appropriate. Cranial Nerves: III/IV/: Versions intact without nystagmus, no gaze preference. VII: Facial expression symmetric VIII: Hearing intact to voice IX/X: Palate elevates symmetrically XI: Shoulder shrug symmetric and intact Motor: Quadriplegia, trace movement of hip adductors and distal finger flexors. Able to lift head off the bed. Reflexes: Unable to assess over telemedicine Results & Data Vital Signs (Past 12 Hours) Vital Signs Temp Pulse Pulse Resp BP Pulse Ox O2 Del Method 07/27/23 15:00 64 07/27/23 11:36 36.9 C 71 20 148/63 H 93 Room Air 07/27/23 08:00 Room Air 07/27/23 08:00 74 07/27/23 07:30 37.0 C 74 18 139/53 L 95 Room Air Laboratory Results Abnormal lab results 07/26/23 07/27/23 07/27/23 Range/Units 20:17 05:31 08:14 RBC 2.79 L (4.70-6.10) M/uL Hgb 8.5 L (14.0-18.0) g/dl Hct 26.2 L (42.0-52.0) % RDW Std Deviation 52.5 H (36.4-46.3) fL RDW Coeff of Poly 15.3 H (11.5-14.5) % BUN 47 H (6-23) mg/dl BUN/Creatinine Ratio 34.8 H (10-20) Glucose 129 H (70-99(Fasting)) mg/dl POC Glucose 160 H 138 H (70-99) mg/dl Phosphorus 2.3 L (2.5-4.9) mg/dl 07/27/23 07/27/23 Range/Units 12:29 16:59 RBC (4.70-6.10) M/uL Hgb (14.0-18.0) g/dl Hct (42.0-52.0) % RDW Std Deviation (36.4-46.3) fL RDW Coeff of Poly (11.5-14.5) % BUN (6-23) mg/dl BUN/Creatinine Ratio (10-20) Glucose (70-99(Fasting)) mg/dl POC Glucose 233 H 212 H (70-99) mg/dl Phosphorus (2.5-4.9) mg/dl Diagnostic Findings MR C-spine 2021- Severe C6 stenosis with myelomalacia
[2023-07-27] MEDS: DEXTROSE 5% IV SCH (22:22)
[2023-07-27] MEDS: TAMSULOSIN HCL 0.4 MG CAP PO SCH (22:22)
[2023-07-27] MEDS: ACYCLOVIR SOD IV SCH (22:22)
[2023-07-27] MEDS: ENOXAPARIN INJ 40 MG/0.4 ML SYR SQ SCH (22:23)
[2023-07-27] MEDS: MINERAL OIL 30 ML UDC PO SCH (22:23)
[2023-07-28] MEDS: ACYCLOVIR SOD IV SCH ×3 (03:47→22:33)
[2023-07-28] MEDS: DEXTROSE 5% IV SCH ×3 (03:47→22:33)
[2023-07-28] MEDS: DULoxetine HCL 20 MG CAP PO SCH (08:13)
[2023-07-28] MEDS: FUROSEMIDE 20 MG TAB PO SCH (08:13)
[2023-07-28] MEDS: FINASTERIDE 5 MG TAB PO SCH (08:13)
[2023-07-28] MEDS: SENNA 8.6 MG TAB PO SCH ×2 (08:13→22:35)
[2023-07-28] MEDS: GABAPENTIN 300 MG CAP PO SCH ×3 (08:14→22:34)
[2023-07-28] MEDS: carvediloL 25 MG TAB PO SCH ×2 (08:14→22:33)
[2023-07-28] MEDS: MULTIVITAMIN TAB PO SCH (08:14)
[2023-07-28] MEDS: ASPIRIN 81 MG ECTAB PO SCH (08:14)
[2023-07-28] MEDS: POLYETHYLENE (MIRALAX) 17 GM PACK PO SCH ×3 (08:15→22:36)
[2023-07-28] MEDS: MUPIROCIN 2% OINT 22 GM TUBE EXT SCH ×3 (08:16→22:40)
[2023-07-28] MEDS: PREGABALIN 50 MG CAP PO SCH ×2 (08:21→22:34)
[2023-07-28] MEDS: lisinopril 10 MG TAB PO SCH (08:44)
[2023-07-28] MEDS: INSULIN ASPART PER UNIT CHARGE SC SCH ×4 (09:58→22:36)
--- NOTE | 2023-07-28 19:42 | Hospitalist Progress Note ---
Date of Service July 28, 2023 Assessment & Plan (1) Myopathy: (2) Disseminated herpes zoster: (3) Ambulatory dysfunction: (4) Bilateral edema of lower extremity: (5) S/P insertion of intrathecal pump: (6) Myelomalacia of cervical cord: (7) Cellulitis: Plan Mr. Yepez is an 83 year old gentleman with PMHx significant for chronic pain with morphine pump, DMII and BPH admitted for placement per family, after a few weeks of generalized progressive weakness, likely attributed to worsening myopathy and weakness after simultaneous UTI and herpes zoster infection in the setting of statin, fibrate therapy and allopurinol. Patient was noted to have lower extremity edema upon admission, which improved with IV diuresis. ECHO did not revealed diastolic dysfunction, but questionable PHTN. Further diuresis limited 2/2 SRAVANI, which is improving with cessation of lasix on 07/18. Patient with elevated CK since admission, IVF given fro 48 hours and stopped on 07/23 [facility] evaluated patient given chronic persistent lower back pain with new onset severe weakness in both of his legs. This was felt to be infection affecting his underlying failed laminectomy syndrome. No surgical intervention given complex comorbidities making patient poor candidate. Broadened coverage with zosyn on 07/22 2/2 fevers and clinically poor appearance--appears much better; notably lesion on buttock concerning for shingles recurrence. Discontinued Zosyn given negative infectious work up and pursue recurrent shingles treatment with contact precautions. Patient without new concerns, will continue to monitor. Patient has been medically stable now for over 48 hours and reports feeling well. Encouraged nursing and patient to keep LUE elevated 2/2 edema as much as possible and turn q2h as able. Consulted neurology. Initial suggestions included consideration for stopping statin, fibrate and allopurinol as all of these may contribute to myopathy (noted elevated CK). Also started IV acyclovir last evening with clinical improvement today in his energy level and weakness. Cont this through the weekend at least and will plan to transfer back to [facility] once he gets a bed at SNF Disseminated Zoster New lesions on buttock c/w herpes zoster Airborne precuations Acyclovir with improvement as noted above. #Ambulatory Dysfunction, myopathy #thoracic myelopathy #Failed Laminectomy syndrome Freq falls happening at home, pt with bruising on chest CK elevated, downtrended CM consult for placement needs in this situation Ortho evaluated patient given left leg sensory loss and bilateral motor weakness: no surgical intervention given comorbidities stopped statin, fenofibrate and allopurinol and he is improved. Pending placement #Rhabdomyolysis *resolved -CK elevated on admission, now 623, gentle IV hydration iso SRAVANI/elevated CK--improving with gentle hydration #Lower extremity edema Pt with significant lower extremity edema Chest xray with noted cardiomegaly; Echo 60% EF, pHTN, LVH Swelling near resolved on exam but is present in his hands/upper extremities now, likely related to poor movement/weakness, no reported heart failure With resolution of SRAVANI, cont small oral dose of lasix with some improvement noted in UE swelling. LUE doppler negative for acute process Encourage extremity elevation and ambulation OOB to chair as tolerated. #SRAVANI *resolved #CKD stage III GFR ranges in 40s since 2019 Received IV lasix 40 07/18 #LLE swelling and erythema *improving Doppler US LLE with low suspicion for clot Completed course of antibiotics for presumptive cellulitis on admission #DMII Hgba1c of 7.4 Holding home meds Basal/Bolus insulin while hospitalized- noted that pt hypoglycemic in the AM. basal insulin held. BSG at goal, cont current regimen. #HTN chronic, stable. Cont coreg, lisinopril and lasix. #Chronic Pain Has morphine pump managed by [facility] Consult placed to pain management for further pain management recs while in hosp Also on gabapentin, lyrica (noted both are gabapentinoids), cymbalta, tylenol for pain. Continue bowel regimen for chronic narcotic use- scheduled sennokot and metamucil, miralax ordered as pt on a pump Pain Consult placed on 07/16 #Constipation Continue bowel regimen for chronic narcotic use -scheduled sennokot and metamucil, miralax as pt on a morphine pump BM 07/22 #HLD hold home statin and fibrate as may contribute to elevated CK and worsening myopathy. BPH/LUTS continue home meds Diet: Low sodium, DMII DVT prophylaxis: Lovenox CODE STATUS: DNR/DNI per POLST form Dispo: SNF I spent a total [id number] coordinating, documenting, and providing care for this patient excluding time spent in the performance of separately billed services Angelica Finch DO [facility] Hospitalist Admission and Anticipated Discharge Date Admission Date: July 16, 2023 Subjective 83-year-old man with progressive weakness for the last few weeks. He lives al one in a single home reporting that a caregiver comes to his home once daily to assist him with feeds and all other cares provided by his family. He is unable to feed himself and has been nonambulatory for approximately 6 months using either a wheelchair or power scooter for mobility. He requires assistance of 2 people to perform transfers typically. Currently being evaluated for placement as he does not have assistance available from 10 PM to 8 AM despite help of family members. Multiple recent falls and progressive weakness. He is significantly improved and energy today after starting IV acyclovir He is oriented and able to lift his arms more today He feels the swelling is slightly improved in his arms I did contact his daughter Amita by phone and spoke with her reviewing the case a nd current recommendations and findings. All questions were answered to her satisfaction. Physical Exam Physical Exam: CONSTITUTIONAL: obese, vitals as above, generally appears weak but in NAD EYES: normal conjunctivae, no scleral icterus ENT: external ear and nose normal, MMM NECK: trachea midline RESPIRATORY: clear to auscultation bilaterally, no crackles, rales or wheezes, normal respiratory effort CARDIOVASCULAR: regular rate and rhythm, S1 and 2 heard without murmurs, gallops or rubs, no JVD, UE swelling bilaterally-slightly improved. GASTROINTESTINAL: soft, nontender, ND, no guarding MUSCULOSKELETAL: generalized weakness, 2/5 strength throughout but more improved, he was able to bed both of his knees equally but slowly, SKIN: warm and dry, unable to visualize shingles rash NEUROLOGIC: CN 2-12 grossly intact, unable to elicit DTRs in knees or brachioradialis, no sensory deficit, normal cognition, normal speech, no tremor PSYCHIATRIC: alert cooperative and answering questions appropriately, oriented Results & Data Results & Data Vital Signs (Past 12 Hours) Vital Signs Temp Pulse Pulse Resp BP Pulse Ox O2 Del Method 07/28/23 15:00 37.0 C 71 14 177/62 H 92 Room Air 07/28/23 12:26 Room Air 07/28/23 12:26 69 07/28/23 11:05 37.0 C 70 16 148/66 H 92 Room Air 07/28/23 07:35 36.9 C 76 15 163/66 H 94 Room Air Medications Administered Current Inpatient Medications Acetaminophen (Acetaminophen 500 Mg Tab) 1,000 mg PO Q8H PRN PRN Reason: Pain/fever Stop: 08/17/23 16:55 Last Admin: 07/27/23 18:19 Dose: 1,000 mg Allopurinol (Allopurinol 300 Mg Tab) 300 mg PO QAM [facility] Stop: 08/16/23 08:59 Last Admin: 07/27/23 08:49 Dose: 300 mg Aspirin (Aspirin 81 Mg Ectab) 81 mg PO QAM [facility] Stop: 08/16/23 08:59 Last Admin: 07/28/23 08:14 Dose: 81 mg Carvedilol (Carvedilol 25 Mg Tab) 25 mg PO BID [facility] Stop: 08/15/23 20:59 Last Admin: 07/28/23 08:14 Dose: 25 mg Dextrose (Dextrose 50% 50 Ml Syringe) 25 - 50 ml IV UD PRN; Protocol PRN Reason: Hypoglycemia Protocol Stop: 08/15/23 20:44 Duloxetine HCl (Duloxetine Hcl 20 Mg Cap) 20 mg PO DAILY [facility] Stop: 08/16/23 08:59 Last Admin: 07/28/23 08:13 Dose: 20 mg Enoxaparin Sodium (Enoxaparin Inj 40 Mg/0.4 Ml Syr) 40 mg SQ Q24H [facility] Stop: 08/15/23 21:59 Last Admin: 07/27/23 22:23 Dose: 40 mg Fenofibrate (Fenofibrate Nanocrystallized 145 Mg Tablet) 145 mg PO QPM [facility] Stop: 08/15/23 20:59 Last Admin: 07/26/23 20:38 Dose: 145 mg Finasteride (Finasteride 5 Mg Tab) 5 mg PO QAM [facility] Stop: 08/16/23 08:59 Last Admin: 07/28/23 08:13 Dose: 5 mg Furosemide (Furosemide 20 Mg Tab) 20 mg PO QAM [facility] Stop: 08/26/23 08:59 Last Admin: 07/28/23 08:13 Dose: 20 mg Gabapentin (Gabapentin 300 Mg Cap) 300 mg PO TID [facility] Stop: 08/15/23 20:59 Last Admin: 07/28/23 15:33 Dose: 300 mg Glucagon (Glucagon For Inj 1 Mg Vial) 1 mg SQ UD PRN; Protocol PRN Reason: Hypoglycemia Protocol Stop: 08/15/23 20:44 Glucose (Glucose 10 Tab/Tube) 4 - 8 tab PO UD PRN; Protocol PRN Reason: Hypoglycemia Treatment Stop: 08/15/23 20:44 Glucose (Glucose 40% Gel 15 Gm Tube) 15 - 30 gm PO UD PRN; Protocol PRN Reason: Hypoglycemia Protocol Stop: 08/15/23 20:44 Acyclovir Sodium 892 mg/ (Dextrose) 267.84 mls @ 250 mls/hr IV Q8H [facility]; Protocol Stop: 08/03/23 19:59 Last Infusion: 07/28/23 16:31 Dose: Infused Insulin Aspart (Insulin Aspart Per Unit Charge) 0 units SC ACHS [facility] Stop: 08/15/23 20:59 Last Admin: 07/28/23 18:55 Dose: 16 units Lisinopril (Lisinopril 10 Mg Tab) 10 mg PO QAM [facility] Stop: 08/16/23 17:29 Last Admin: 07/28/23 08:44 Dose: 10 mg Mineral Oil (Mineral Oil 30 Ml Udc) 30 ml PO QPM [facility] Stop: 08/15/23 21:29 Last Admin: 07/27/23 22:23 Dose: 30 ml Miscellaneous (Carbohydrates For Hypoglycemia ) 15 - 30 gm PO UD PRN PRN Reason: Hypoglycemia Protocol Stop: 08/15/23 20:44 Last Admin: 07/18/23 08:20 Dose: 15 gm Morphine Sulfate (Morphine Pain Pump) 1 pump IT UD [facility] Stop: 08/15/23 19:14 Multivitamins (Multivitamin Tab) 1 tab PO QAM [facility] Stop: 08/16/23 08:59 Last Admin: 07/28/23 08:14 Dose: 1 tab Mupirocin (Mupirocin 2% Oint 22 Gm Tube) 1 appln EXT TID [facility] Stop: 08/22/23 08:59 Last Admin: 07/28/23 15:32 Dose: 1 appln Naloxone HCl (Naloxone Hcl 0.4 Mg/1 Ml Vial/Carp) 0.1 mg IV Q5M PRN PRN Reason: OVERSEDATION/RESP DEPRESSION Stop: 08/15/23 21:18 Polyethylene Glycol (Polyethylene (Miralax) 17 Gm Pack) 17 gm PO TID [facility] Stop: 08/21/23 13:59 Last Admin: 07/28/23 15:32 Dose: 17 gm Pregabalin (Pregabalin 50 Mg Cap) 50 mg PO BID [facility] Stop: 08/15/23 20:59 Last Admin: 07/28/23 08:21 Dose: 50 mg Psyllium Hydrophilic Mucilloid (Psyllium Or Guar Gum Fiber Powder Packet) 1 pkt PO QAM [facility] Stop: 08/22/23 08:59 Last Admin: 07/26/23 08:40 Dose: 1 pkt Rosuvastatin Calcium (Rosuvastatin Calcium 20 Mg Tab) 20 mg PO [facility] Stop: 08/15/23 20:59 Last Admin: 07/26/23 20:38 Dose: 20 mg Sennosides (Senna 8.6 Mg Tab) 8.6 mg PO BID [facility] Stop: 08/21/23 12:59 Last Admin: 07/28/23 08:13 Dose: 8.6 mg Tamsulosin HCl (Tamsulosin Hcl 0.4 Mg Cap) 0.4 mg PO [facility] Stop: 08/15/23 20:59 Last Admin: 07/27/23 22:22 Dose: 0.4 mg Valacyclovir HCl (Valacyclovir Hcl 500 Mg Tablet) 1,000 mg PO TID [facility]; Protocol Stop: 07/30/23 13:59 Last Admin: 07/27/23 13:43 Dose: 1,000 mg
[2023-07-28] MEDS: ENOXAPARIN INJ 40 MG/0.4 ML SYR SQ SCH (22:33)
[2023-07-28] MEDS: ACETAMINOPHEN 500 MG TAB PO PRN (22:34)
[2023-07-28] MEDS: TAMSULOSIN HCL 0.4 MG CAP PO SCH (22:35)
[2023-07-28] MEDS: MINERAL OIL 30 ML UDC PO SCH (22:35)
[2023-07-29] MEDS: ACYCLOVIR SOD IV SCH ×3 (05:37→20:38)
[2023-07-29] MEDS: DEXTROSE 5% IV SCH ×3 (05:37→20:38)
[2023-07-29 05:44] LABS: Hematocrit (blood only) 26.2 % (42.0-52.0); Hemoglobin 8.6 g/dl (14.0-18.0); Mean Corpuscular Hemoglobin 30.6 pg (25.0-34.0); Mean Corpuscular Hgb Conc 32.8 g/dL (32.0-36.0); Mean Corpuscular Volume 93.2 fL (80.0-100.0); Mean Platelet Volume 9.4 fL (9.4-12.4); Platelet Count 429 K/uL (130-400); RDW Coefficient of Variation 15.6 % (11.5-14.5); RDW Standard Deviation 53.2 fL (36.4-46.3); Red Blood Count 2.81 M/uL (4.70-6.10); White Blood Count 6.51 K/ul (4.8-10.8)
[2023-07-29 05:54] LABS: BUN Creatinine Ratio 40.6 (10-20); Creatinine Clr Calc Pharmacy 51.6 ml/min; Est GFR (African American) 54.8 ml/min; Est GFR (Non-African American) 47.3 ml/min; Potassium 4.5 mmol/L (3.5-5.1)
--- NOTE | 2023-07-29 09:25 | Hospitalist Progress Note ---
Date of Service July 29, 2023 Assessment & Plan (1) Myopathy: (2) Disseminated herpes zoster: (3) Ambulatory dysfunction: (4) Bilateral edema of lower extremity: (5) S/P insertion of intrathecal pump: (6) Myelomalacia of cervical cord: (7) Cellulitis: Plan Mr. Yepez is an 83 year old gentleman with PMHx significant for chronic pain with morphine pump, DMII and BPH admitted for placement per family, after a few weeks of generalized progressive weakness, likely attributed to worsening myopathy and weakness after simultaneous UTI and herpes zoster infection in the setting of statin, fibrate therapy and allopurinol. Patient was noted to have lower extremity edema upon admission, which improved with IV diuresis. ECHO did not revealed diastolic dysfunction, but questionable PHTN. Further diuresis limited 2/2 SRAVANI, which is improving with cessation of lasix on 07/18. Patient with elevated CK since admission, IVF given fro 48 hours and stopped on 07/23 [facility] evaluated patient given chronic persistent lower back pain with new onset severe weakness in both of his legs. This was felt to be infection affecting his underlying failed laminectomy syndrome. No surgical intervention given complex comorbidities making patient poor candidate. Broadened coverage with zosyn on 07/22 2/2 fevers and clinically poor appearance--appears much better; notably lesion on buttock concerning for shingles recurrence. Discontinued Zosyn given negative infectious work up and pursue recurrent shingles treatment with contact precautions. Patient without new concerns, will continue to monitor. Patient has been medically stable now for over 48 hours and reports feeling well. Encouraged nursing and patient to keep LUE elevated 2/2 edema as much as possible and turn q2h as able. Consulted neurology. Initial suggestions included consideration for stopping statin, fibrate and allopurinol as all of these may contribute to myopathy (noted elevated CK). Also started IV acyclovir last evening with clinical improvement today in his energy level and weakness. Cont this through the weekend at least and will plan to transfer back to [facility] once he gets a bed at [facility] Disseminated Zoster New lesions on buttock c/w herpes zoster Airborne precuations Acyclovir with improvement as noted above, however, I am concerned for the development of a medication side effect given his new malaise today. Will monitor him closely with the next dose and consider switching to a different agent if there is a reaction. #Ambulatory Dysfunction, myopathy #thoracic myelopathy #Failed Laminectomy syndrome Freq falls happening at home, pt with bruising on chest CK elevated, downtrended CM consult for placement needs in this situation Ortho evaluated patient given left leg sensory loss and bilateral motor weakness: no surgical intervention given comorbidities stopped statin, fenofibrate and allopurinol and he is improved. Pending placement Need to continue turning patient q2h and helping to prevent breakdown on scrotum which is also swollen. Patient states that he is not turning every two hours, will discuss with nursing team. #Rhabdomyolysis *resolved -CK elevated on admission, improved with rehydration efforts and stopped statin, fibrate. #Lower extremity edema Pt with significant lower extremity edema Chest xray with noted cardiomegaly; Echo 60% EF, pHTN, LVH Swelling near resolved on exam but is present in his hands/upper extremities now, likely related to poor movement/weakness, no reported heart failure With resolution of SRAVANI, cont small oral dose of lasix with some improvement noted in UE swelling. LUE doppler negative for acute process Encourage extremity elevation and ambulation OOB to chair as tolerated. #SRAVANI *resolved #CKD stage III GFR ranges in 40s since 2019 Received IV lasix 40 07/18 #LLE swelling and erythema *improving Doppler US LLE with low suspicion for clot Completed course of antibiotics for presumptive cellulitis on admission #DMII Hgba1c of 7.4 Holding home meds Basal/Bolus insulin while hospitalized- noted that pt hypoglycemic in the AM. basal insulin held. BSG at goal, cont current regimen. #HTN chronic, stable. Cont coreg, lisinopril and lasix. #Chronic Pain Has morphine pump managed by [facility] Pain management Consult placed to pain management for further pain management recs while in hosp Also on gabapentin, lyrica (noted both are gabapentinoids), cymbalta, tylenol for pain. Continue bowel regimen for chronic narcotic use- scheduled sennokot and metamucil, miralax ordered as pt on a pump Pain Consult placed on 07/16 #Constipation Continue bowel regimen for chronic narcotic use -scheduled sennokot and metamucil, miralax as pt on a morphine pump BM 07/22 #HLD hold home statin and fibrate as may contribute to elevated CK and worsening myopathy. BPH/LUTS continue home meds Diet: Low sodium, DMII DVT prophylaxis: Lovenox CODE STATUS: DNR/DNI per POLST form Dispo: SNF. Medically stable for discharge when bed is available. I spent a total [id number] coordinating, documenting, and providing care for this patient excluding time spent in the performance of separately billed services Angelica Finch DO [facility] Hospitalist Admission and Anticipated Discharge Date Admission Date: July 16, 2023 Subjective 83-year-old man with progressive weakness for the last few weeks. He lives alone in a single home reporting that a caregiver comes to his home once daily to assist him with feeds and all other cares provided by his family. He is sakina ble to feed himself and has been nonambulatory for approximately 6 months using either a wheelchair or power scooter for mobility. He requires assistance of 2 people to perform transfers typically. Currently being evaluated for placement as he does not have assistance available from 10 PM to 8 AM despite help of family members. Multiple recent falls and progressive weakness. he reports feeling well this morning and then right before lunch he developed no appetite and a generalized malaise he feels like he took a step back denies pain or other new issues. we discussed the risks vs benefits of the lawson and will keep it in place for the time being. Physical Exam Physical Exam: CONSTITUTIONAL: obese, vitals as above, generally appears weak but in NAD EYES: normal conjunctivae, no scleral icterus ENT: external ear and nose normal, MMM NECK: trachea midline RESPIRATORY: clear to auscultation bilaterally, no crackles, rales or wheezes, normal respiratory effort CARDIOVASCULAR: regular rate and rhythm, S1 and 2 heard without murmurs, gallops or rubs, no JVD, UE swelling bilaterally-slightly improved. GASTROINTESTINAL: soft, nontender, ND, no guarding MUSCULOSKELETAL: generalized weakness, 2/5 strength throughout, he was able to bed both of his knees equally but slowly, SKIN: warm and dry, unable to visualize shingles rash NEUROLOGIC: CN 2-12 grossly intact, unable to elicit DTRs in knees or brachioradialis, no sensory deficit, normal cognition, normal speech, no tremor PSYCHIATRIC: alert cooperative and answering questions appropriately, oriented Results & Data Results & Data Vital Signs (Past 12 Hours) Vital Signs Temp Pulse Resp BP Pulse Ox O2 Del Method 07/29/23 08:05 36.9 C 77 15 143/64 H 95 Room Air 07/28/23 23:27 36.9 C 70 18 137/57 L 93 Room Air Laboratory Results Short CBC 07/29/23 Range/Units 05:12 WBC 6.51 (4.8-10.8) K/ul Hgb 8.6 L (14.0-18.0) g/dl Hct 26.2 L (42.0-52.0) % Plt Count 429 H (130-400) K/uL BMP 07/29/23 05:16 Sodium 136 Potassium 4.5 Chloride 102 Carbon Dioxide 28 BUN 56 H Creatinine 1.38 Glucose 126 H Calcium 9.0 Medications Administered Current Inpatient Medications Acetaminophen (Acetaminophen 500 Mg Tab) 1,000 mg PO Q8H PRN PRN Reason: Pain/fever Stop: 08/17/23 16:55 Last Admin: 07/28/23 22:34 Dose: 1,000 mg Aspirin (Aspirin 81 Mg Ectab) 81 mg PO QAM [facility] Stop: 08/16/23 08:59 Last Admin: 07/28/23 08:14 Dose: 81 mg Carvedilol (Carvedilol 25 Mg Tab) 25 mg PO BID [facility] Stop: 08/15/23 20:59 Last Admin: 07/28/23 22:33 Dose: 25 mg Dextrose (Dextrose 50% 50 Ml Syringe) 25 - 50 ml IV UD PRN; Protocol PRN Reason: Hypoglycemia Protocol Stop: 08/15/23 20:44 Duloxetine HCl (Duloxetine Hcl 20 Mg Cap) 20 mg PO DAILY [facility] Stop: 08/16/23 08:59 Last Admin: 07/28/23 08:13 Dose: 20 mg Enoxaparin Sodium (Enoxaparin Inj 40 Mg/0.4 Ml Syr) 40 mg SQ Q24H [facility] Stop: 08/15/23 21:59 Last Admin: 07/28/23 22:33 Dose: 40 mg Finasteride (Finasteride 5 Mg Tab) 5 mg PO QAM [facility] Stop: 08/16/23 08:59 Last Admin: 07/28/23 08:13 Dose: 5 mg Furosemide (Furosemide 20 Mg Tab) 20 mg PO QAM [facility] Stop: 08/26/23 08:59 Last Admin: 07/28/23 08:13 Dose: 20 mg Gabapentin (Gabapentin 300 Mg Cap) 300 mg PO TID [facility] Stop: 08/15/23 20:59 Last Admin: 07/28/23 22:34 Dose: 300 mg Glucagon (Glucagon For Inj 1 Mg Vial) 1 mg SQ UD PRN; Protocol PRN Reason: Hypoglycemia Protocol Stop: 08/15/23 20:44 Glucose (Glucose 10 Tab/Tube) 4 - 8 tab PO UD PRN; Protocol PRN Reason: Hypoglycemia Treatment Stop: 08/15/23 20:44 Glucose (Glucose 40% Gel 15 Gm Tube) 15 - 30 gm PO UD PRN; Protocol PRN Reason: Hypoglycemia Protocol Stop: 08/15/23 20:44 Acyclovir Sodium 892 mg/ (Dextrose) 267.84 mls @ 250 mls/hr IV Q8H [facility]; Protoc ol Stop: 08/03/23 19:59 Last Infusion: 07/29/23 06:43 Dose: Infused Insulin Aspart (Insulin Aspart Per Unit Charge) 0 units SC ACHS [facility] Stop: 08/15/23 20:59 Last Admin: 07/28/23 22:36 Dose: Not Given Lisinopril (Lisinopril 10 Mg Tab) 10 mg PO QAM [facility] Stop: 08/16/23 17:29 Last Admin: 07/28/23 08:44 Dose: 10 mg Mineral Oil (Mineral Oil 30 Ml Udc) 30 ml PO QPM [facility] Stop: 08/15/23 21:29 Last Admin: 07/28/23 22:35 Dose: 30 ml Miscellaneous (Carbohydrates For Hypoglycemia ) 15 - 30 gm PO UD PRN PRN Reason: Hypoglycemia Protocol Stop: 08/15/23 20:44 Last Admin: 07/18/23 08:20 Dose: 15 gm Morphine Sulfate (Morphine Pain Pump) 1 pump IT UD [facility] Stop: 08/15/23 19:14 Multivitamins (Multivitamin Tab) 1 tab PO QAM [facility] Stop: 08/16/23 08:59 Last Admin: 07/28/23 08:14 Dose: 1 tab Mupirocin (Mupirocin 2% Oint 22 Gm Tube) 1 appln EXT TID [facility] Stop: 08/22/23 08:59 Last Admin: 07/28/23 22:40 Dose: 1 appln Naloxone HCl (Naloxone Hcl 0.4 Mg/1 Ml Vial/Carp) 0.1 mg IV Q5M PRN PRN Reason: OVERSEDATION/RESP DEPRESSION Stop: 08/15/23 21:18 Polyethylene Glycol (Polyethylene (Miralax) 17 Gm Pack) 17 gm PO TID [facility] Stop: 08/21/23 13:59 Last Admin: 07/28/23 22:36 Dose: Not Given Pregabalin (Pregabalin 50 Mg Cap) 50 mg PO BID [facility] Stop: 08/15/23 20:59 Last Admin: 07/28/23 22:34 Dose: 50 mg Sennosides (Senna 8.6 Mg Tab) 8.6 mg PO BID [facility] Stop: 08/21/23 12:59 Last Admin: 07/28/23 22:35 Dose: 8.6 mg Tamsulosin HCl (Tamsulosin Hcl 0.4 Mg Cap) 0.4 mg PO HS [facility] Stop: 08/15/23 20:59 Last Admin: 07/28/23 22:35 Dose: 0.4 mg
[2023-07-29] MEDS: PREGABALIN 50 MG CAP PO SCH ×2 (10:01→20:43)
[2023-07-29] MEDS: carvediloL 25 MG TAB PO SCH ×2 (10:02→20:39)
[2023-07-29] MEDS: SENNA 8.6 MG TAB PO SCH ×2 (10:02→20:35)
[2023-07-29] MEDS: ASPIRIN 81 MG ECTAB PO SCH (10:02)
[2023-07-29] MEDS: GABAPENTIN 300 MG CAP PO SCH ×3 (10:02→20:39)
[2023-07-29] MEDS: FUROSEMIDE 20 MG TAB PO SCH (10:02)
[2023-07-29] MEDS: FINASTERIDE 5 MG TAB PO SCH (10:03)
[2023-07-29] MEDS: MULTIVITAMIN TAB PO SCH (10:03)
[2023-07-29] MEDS: DULoxetine HCL 20 MG CAP PO SCH (10:04)
[2023-07-29] MEDS: MUPIROCIN 2% OINT 22 GM TUBE EXT SCH ×3 (10:05→20:40)
[2023-07-29] MEDS: lisinopril 10 MG TAB PO SCH (10:05)
[2023-07-29] MEDS: POLYETHYLENE (MIRALAX) 17 GM PACK PO SCH ×3 (10:05→20:34)
[2023-07-29] MEDS: INSULIN ASPART PER UNIT CHARGE SC SCH ×4 (10:19→20:40)
[2023-07-29] MEDS: TAMSULOSIN HCL 0.4 MG CAP PO SCH (20:38)
[2023-07-29] MEDS: MINERAL OIL 30 ML UDC PO SCH (20:38)
[2023-07-29] MEDS: ENOXAPARIN INJ 40 MG/0.4 ML SYR SQ SCH (20:39)
[2023-07-30] MEDS: ACYCLOVIR SOD IV SCH ×3 (05:35→20:02)
[2023-07-30] MEDS: DEXTROSE 5% IV SCH ×3 (05:35→20:02)
[2023-07-30 06:10] LABS: Hematocrit (blood only) 26.9 % (42.0-52.0); Hemoglobin 8.4 g/dl (14.0-18.0); Mean Corpuscular Hemoglobin 29.7 pg (25.0-34.0); Mean Corpuscular Hgb Conc 31.2 g/dL (32.0-36.0); Mean Corpuscular Volume 95.1 fL (80.0-100.0); Mean Platelet Volume 9.6 fL (9.4-12.4); Platelet Count 445 K/uL (130-400); RDW Coefficient of Variation 15.5 % (11.5-14.5); RDW Standard Deviation 53.7 fL (36.4-46.3); Red Blood Count 2.83 M/uL (4.70-6.10); White Blood Count 6.66 K/ul (4.8-10.8)
[2023-07-30 06:13] LABS: Creatinine Clr Calc Pharmacy 71.2 ml/min; Est GFR (African American) 80.9 ml/min; Est GFR (Non-African American) 69.8 ml/min; Potassium 4.5 mmol/L (3.5-5.1)
[2023-07-30] MEDS: POLYETHYLENE (MIRALAX) 17 GM PACK PO SCH ×3 (08:36→20:06)
[2023-07-30] MEDS: PREGABALIN 50 MG CAP PO SCH ×2 (08:36→20:09)
[2023-07-30] MEDS: GABAPENTIN 300 MG CAP PO SCH ×3 (08:37→20:03)
[2023-07-30] MEDS: FINASTERIDE 5 MG TAB PO SCH (08:38)
[2023-07-30] MEDS: FUROSEMIDE 20 MG TAB PO SCH (08:38)
[2023-07-30] MEDS: SENNA 8.6 MG TAB PO SCH ×2 (08:38→20:04)
[2023-07-30] MEDS: DULoxetine HCL 20 MG CAP PO SCH (08:39)
[2023-07-30] MEDS: MULTIVITAMIN TAB PO SCH (08:39)
[2023-07-30] MEDS: lisinopril 10 MG TAB PO SCH (08:39)
[2023-07-30] MEDS: carvediloL 25 MG TAB PO SCH ×2 (08:39→20:04)
[2023-07-30] MEDS: MUPIROCIN 2% OINT 22 GM TUBE EXT SCH ×3 (08:40→20:06)
[2023-07-30] MEDS: ASPIRIN 81 MG ECTAB PO SCH (08:40)
--- NOTE | 2023-07-30 09:32 | Hospitalist Progress Note ---
Date of Service July 30, 2023 Assessment & Plan (1) Myopathy: (2) Disseminated herpes zoster: (3) Ambulatory dysfunction: (4) Bilateral edema of lower extremity: (5) S/P insertion of intrathecal pump: (6) Myelomalacia of cervical cord: (7) Cellulitis: Plan Mr. Yepez is an 83 year old gentleman with PMHx significant for chronic pain with morphine pump, DMII and BPH admitted for placement per family, after a few weeks of generalized progressive weakness, likely attributed to worsening myopathy and weakness after simultaneous UTI and herpes zoster infection in the setting of statin, fibrate therapy and allopurinol. Patient was noted to have lower extremity edema upon admission, which improved with IV diuresis. ECHO did not revealed diastolic dysfunction, but questionable PHTN. Further diuresis limited 2/2 SRAVANI, which is improving with cessation of lasix on 07/18. Patient with elevated CK since admission, IVF given fro 48 hours and stopped on 07/23 [facility] evaluated patient given chronic persistent lower back pain with new onset severe weakness in both of his legs. This was felt to be infection affecting his underlying failed laminectomy syndrome. No surgical intervention given complex comorbidities making patient poor candidate. Broadened coverage with zosyn on 07/22 2/2 fevers and clinically poor appearance--appears much better; notably lesion on buttock concerning for shingles recurrence. Discontinued Zosyn given negative infectious work up and pursue recurrent shingles treatment with contact precautions. Patient without new concerns, will continue to monitor. Patient has been medically stable now for over 48 hours and reports feeling well. Encouraged nursing and patient to keep LUE elevated 2/2 edema as much as possible and turn q2h as able. Consulted neurology. Initial suggestions included consideration for stopping statin, fibrate and allopurinol as all of these may contribute to myopathy (noted elevated CK). Also started IV acyclovir with clinical improvement today in his energy level and weakness. Cont this through the weekend at least and will plan to transfer back to [facility] once he gets a bed at SNF Disseminated Zoster New lesions on buttock c/w herpes zoster Airborne precautions Acyclovir with improvement , continue this for now. #Ambulatory Dysfunction, myopathy #thoracic myelopathy #Failed Laminectomy syndrome Freq falls happening at home, pt with bruising on chest CK elevated, downtrended CM consult for placement needs in this situation Ortho evaluated patient given left leg sensory loss and bilateral motor weakness: no surgical intervention given comorbidities stopped statin, fenofibrate and allopurinol and he is improved. Pending placement Need to continue turning patient q2h and helping to prevent breakdown on scrotum which is also swollen. Patient states that he is not turning every two hours, will discuss with nursing team. #Rhabdomyolysis *resolved -CK elevated on admission, improved with rehydration efforts and stopped statin, fibrate. #Lower extremity edema Pt with significant lower extremity edema Chest xray with noted cardiomegaly; Echo 60% EF, pHTN, LVH Swelling near resolved on exam but is present in his hands/upper extremities now, likely related to poor movement/weakness, no reported heart failure With resolution of SRAVANI, cont small oral dose of lasix with some improvement noted in UE swelling. LUE doppler negative for acute process Encourage extremity elevation and ambulation OOB to chair as tolerated. #SRAVANI *resolved #CKD stage III GFR ranges in 40s since 2019 Received IV lasix 40 07/18 #LLE swelling and erythema *improving Doppler US LLE with low suspicion for clot Completed course of antibiotics for presumptive cellulitis on admission #DMII Hgba1c of 7.4 Holding home meds Basal/Bolus insulin while hospitalized- noted that pt hypoglycemic in the AM. basal insulin held. BSG at goal, cont current regimen. #HTN chronic, stable. Cont coreg, lisinopril and lasix. #Chronic Pain Has morphine pump managed by [facility] management Consult placed to pain management for further pain management recs while in hosp Also on gabapentin, lyrica (noted both are gabapentinoids), cymbalta, tylenol for pain. Continue bowel regimen for chronic narcotic use- scheduled sennokot and metamucil, miralax ordered as pt on a pump Pain Consult placed on 07/16 #Constipation Continue bowel regimen for chronic narcotic use -scheduled sennokot and metamucil, miralax as pt on a morphine pump BM 07/22 #HLD hold home statin and fibrate as may contribute to elevated CK and worsening myopathy. BPH/LUTS continue home meds Diet: Low sodium, DMII DVT prophylaxis: Lovenox CODE STATUS: DNR/DNI per POLST form Dispo: SNF. Medically stable for discharge when bed is available. Angelica Finch DO [facility] Hospitalist Admission and Anticipated Discharge Date Admission Date: July 16, 2023 Subjective 83-year-old man with progressive weakness for the last few weeks. He lives alone in a single home reporting that a caregiver comes to his home once daily to assist him with feeds and all other cares provided by his family. He is unable to feed himself and has been nonambulatory for approximately 6 months using either a wheelchair or power scooter for mobility. He requires assistance of 2 people to perform transfers typically. Currently being evaluated for placement as he does not have assistance available from 10 PM to 8 AM despite help of family members. Multiple recent falls and progressive weakness. feels better overall today his malaise from yesterday is gone reports having more energy today tolerating PO Physical Exam Physical Exam: CONSTITUTIONAL: obese, vitals as above, generally appears weak but in NAD EYES: normal conjunctivae, no scleral icterus ENT: external ear and nose normal, MMM NECK: trachea midline RESPIRATORY: clear to auscultation bilaterally, no crackles, rales or wheezes, normal respiratory effort CARDIOVASCULAR: regular rate and rhythm, S1 and 2 heard without murmurs, gallops or rubs, no JVD, UE swelling bilaterally-slightly improved. GASTROINTESTINAL: soft, nontender, ND, no guarding MUSCULOSKELETAL: generalized weakness, 2/5 strength throughout, he was able to bed both of his knees equally but slowly, SKIN: warm and dry, (visualized shingles rash yesterday which was n't documented and there is a large skin tear/pressure ulcer-stge II on lower buttock with open shingles sores in multple dermatomes and moving down his posterior right thigh.) NEUROLOGIC: CN 2-12 grossly intact, unable to elicit DTRs in knees or brachioradialis, no sensory deficit, normal cognition, normal speech, no tremor PSYCHIATRIC: alert cooperative and answering questions appropriately, oriented Results & Data Results & Data Vital Signs (Past 12 Hours) Vital Signs Temp Pulse Resp BP Pulse Ox O2 Del Method 07/30/23 08:18 36.7 C 70 19 137/61 94 Room Air 07/30/23 07:44 36.7 C 71 16 120/65 94 Room Air 07/29/23 23:32 36.8 C 66 20 134/62 92 Room Air Laboratory Results Short CBC 07/30/23 Range/Units 05:12 WBC 6.66 (4.8-10.8) K/ul Hgb 8.4 L (14.0-18.0) g/dl Hct 26.9 L (42.0-52.0) % Plt Count 445 H (130-400) K/uL BMP 07/30/23 05:12 Sodium 136 Potassium 4.5 Chloride 102 Carbon Dioxide 29 BUN 53 H Creatinine 1.00 D Glucose 127 H Calcium 9.0 Medications Administered Current Inpatient Medications Acetaminophen (Acetaminophen 500 Mg Tab) 1,000 mg PO Q8H PRN PRN Reason: Pain/fever Stop: 08/17/23 16:55 Last Admin: 07/28/23 22:34 Dose: 1,000 mg Aspirin (Aspirin 81 Mg Ectab) 81 mg PO QAM [facility] Stop: 08/16/23 08:59 Last Admin: 07/30/23 08:40 Dose: 81 mg Carvedilol (Carvedilol 25 Mg Tab) 25 mg PO BID [facility] Stop: 08/15/23 20:59 Last Admin: 07/30/23 08:39 Dose: 25 mg Dextrose (Dextrose 50% 50 Ml Syringe) 25 - 50 ml IV UD PRN; Protocol PRN Reason: Hypoglycemia Protocol Stop: 08/15/23 20:44 Duloxetine HCl (Duloxetine Hcl 20 Mg Cap) 20 mg PO DAILY [facility] Stop: 08/16/23 08:59 Last Admin: 07/30/23 08:39 Dose: 20 mg Enoxaparin Sodium (Enoxaparin Inj 40 Mg/0.4 Ml Syr) 40 mg SQ Q24H [facility] Stop: 08/15/23 21:59 Last Admin: 07/29/23 20:39 Dose: 40 mg Finasteride (Finasteride 5 Mg Tab) 5 mg PO QAM [facility] Stop: 08/16/23 08:59 Last Admin: 07/30/23 08:38 Dose: 5 mg Furosemide (Furosemide 20 Mg Tab) 20 mg PO QAM [facility] Stop: 08/26/23 08:59 Last Admin: 07/30/23 08:38 Dose: 20 mg Gabapentin (Gabapentin 300 Mg Cap) 300 mg PO TID [facility] Stop: 08/15/23 20:59 Last Admin: 07/30/23 08:37 Dose: 300 mg Glucagon (Glucagon For Inj 1 Mg Vial) 1 mg SQ UD PRN; Protocol PRN Reason: Hypoglycemia Protocol Stop: 08/15/23 20:44 Glucose (Glucose 10 Tab/Tube) 4 - 8 tab PO UD PRN; Protocol PRN Reason: Hypoglycemia Treatment Stop: 08/15/23 20:44 Glucose (Glucose 40% Gel 15 Gm Tube) 15 - 30 gm PO UD PRN; Protocol PRN Reason: Hypoglycemia Protocol Stop: 08/15/23 20:44 Acyclovir Sodium 892 mg/ (Dextrose) 267.84 mls @ 250 mls/hr IV Q8H [facility]; Protocol Stop: 08/03/23 19:59 Last Infusion: 07/30/23 06:39 Dose: Infused Insulin Aspart (Insulin Aspart Per Unit Charge) 0 units SC ACHS [facility] Stop: 08/15/23 20:59 Last Admin: 07/29/23 20:40 Dose: Not Given Lisinopril (Lisinopril 10 Mg Tab) 10 mg PO QAM [facility] Stop: 08/16/23 17:29 Last Admin: 07/30/23 08:39 Dose: 10 mg Mineral Oil (Mineral Oil 30 Ml Udc) 30 ml PO QPM [facility] Stop: 08/15/23 21:29 Last Admin: 07/29/23 20:38 Dose: 30 ml Miscellaneous (Carbohydrates For Hypoglycemia ) 15 - 30 gm PO UD PRN PRN Reason: Hypoglycemia Protocol Stop: 08/15/23 20:44 Last Admin: 07/18/23 08:20 Dose: 15 gm Morphine Sulfate (Morphine Pain Pump) 1 pump IT UD [facility] Stop: 08/15/23 19:14 Multivitamins (Multivitamin Tab) 1 tab PO QAM [facility] Stop: 08/16/23 08:59 Last Admin: 07/30/23 08:39 Dose: 1 tab Mupirocin (Mupirocin 2% Oint 22 Gm Tube) 1 appln EXT TID [facility] Stop: 08/22/23 08:59 Last Admin: 07/30/23 08:40 Dose: 1 appln Naloxone HCl (Naloxone Hcl 0.4 Mg/1 Ml Vial/Carp) 0.1 mg IV Q5M PRN PRN Reason: OVERSEDATION/RESP DEPRESSION Stop: 08/15/23 21:18 Polyethylene Glycol (Polyethylene (Miralax) 17 Gm Pack) 17 gm PO TID [facility] Stop: 08/21/23 13:59 Last Admin: 07/30/23 08:36 Dose: 17 gm Pregabalin (Pregabalin 50 Mg Cap) 50 mg PO BID [facility] Stop: 08/15/23 20:59 Last Admin: 07/30/23 08:36 Dose: 50 mg Sennosides (Senna 8.6 Mg Tab) 8.6 mg PO BID [facility] Stop: 08/21/23 12:59 Last Admin: 07/30/23 08:38 Dose: 8.6 mg Tamsulosin HCl (Tamsulosin Hcl 0.4 Mg Cap) 0.4 mg PO HS [facility] Stop: 08/15/23 20:59 Last Admin: 07/29/23 20:38 Dose: 0.4 mg
[2023-07-30] MEDS: ACETAMINOPHEN 500 MG TAB PO PRN (09:49)
[2023-07-30] MEDS: INSULIN ASPART PER UNIT CHARGE SC SCH ×4 (10:00→20:37)
[2023-07-30] MEDS: MINERAL OIL 30 ML UDC PO SCH (20:03)
[2023-07-30] MEDS: TAMSULOSIN HCL 0.4 MG CAP PO SCH (20:03)
[2023-07-30] MEDS: ENOXAPARIN INJ 40 MG/0.4 ML SYR SQ SCH (20:03)
[2023-07-31] MEDS: ACYCLOVIR SOD IV SCH ×3 (05:35→20:56)
[2023-07-31] MEDS: DEXTROSE 5% IV SCH ×3 (05:35→20:56)
[2023-07-31] MEDS: carvediloL 25 MG TAB PO SCH ×2 (08:07→20:56)
[2023-07-31] MEDS: PREGABALIN 50 MG CAP PO SCH ×2 (08:07→21:23)
[2023-07-31] MEDS: ACETAMINOPHEN 500 MG TAB PO PRN (08:07)
[2023-07-31] MEDS: lisinopril 10 MG TAB PO SCH (08:08)
[2023-07-31] MEDS: SENNA 8.6 MG TAB PO SCH ×2 (08:08→20:59)
[2023-07-31] MEDS: ASPIRIN 81 MG ECTAB PO SCH (08:08)
[2023-07-31] MEDS: FUROSEMIDE 20 MG TAB PO SCH (08:08)
[2023-07-31] MEDS: GABAPENTIN 300 MG CAP PO SCH ×3 (08:09→20:57)
[2023-07-31] MEDS: FINASTERIDE 5 MG TAB PO SCH (08:09)
[2023-07-31] MEDS: MULTIVITAMIN TAB PO SCH (08:09)
[2023-07-31] MEDS: MUPIROCIN 2% OINT 22 GM TUBE EXT SCH ×3 (08:09→20:58)
[2023-07-31] MEDS: DULoxetine HCL 20 MG CAP PO SCH (08:09)
[2023-07-31] MEDS: POLYETHYLENE (MIRALAX) 17 GM PACK PO SCH ×3 (08:09→20:58)
[2023-07-31] MEDS: INSULIN ASPART PER UNIT CHARGE SC SCH ×4 (10:08→20:39)
--- NOTE | 2023-07-31 10:09 | Hospitalist Progress Note ---
Date of Service July 31, 2023 Assessment & Plan (1) Myopathy: (2) Disseminated herpes zoster: (3) Ambulatory dysfunction: (4) Bilateral edema of lower extremity: (5) S/P insertion of intrathecal pump: (6) Myelomalacia of cervical cord: (7) Cellulitis: Plan Mr. Yepez is an 83 year old gentleman with PMHx significant for chronic pain with morphine pump, DMII and BPH admitted for placement per family, after a few weeks of generalized progressive weakness, likely attributed to worsening myopathy and weakness after simultaneous UTI and herpes zoster infection in the setting of statin, fibrate therapy and allopurinol. Patient was noted to have lower extremity edema upon admission, which improved with IV diuresis. ECHO did not revealed diastolic dysfunction, but questionable PHTN. Further diuresis limited 2/2 SRAVANI, which is improving with cessation of lasix on 07/18. Patient with elevated CK since admission, IVF given fro 48 hours and stopped on 07/23 [facility] evaluated patient given chronic persistent lower back pain with new onset severe weakness in both of his legs. This was felt to be infection affecting his underlying failed laminectomy syndrome. No surgical intervention given complex comorbidities making patient poor candidate. Broadened coverage with zosyn on 07/22 2/2 fevers and clinically poor appearance--appears much better; notably lesion on buttock concerning for shingles recurrence. Discontinued Zosyn given negative infectious work up and pursue recurrent shingles treatment with contact precautions. Patient without new concerns, will continue to monitor. Patient has been medically stable now for over 48 hours and reports feeling well. Encouraged nursing and patient to keep LUE elevated 2/2 edema as much as possible and turn q2h as able. Consulted neurology. Initial suggestions included consideration for stopping statin, fibrate and allopurinol as all of these may contribute to myopathy (noted elevated CK). Also started IV acyclovir (07/27) with clinical improvement in his energy level and weakness. Cont this through the weekend at least and will plan to transfer back to [facility] once he gets a bed at [facility] Disseminated Zoster New lesions on buttock c/w herpes zoster Airborne precautions Acyclovir with improvement , continue this for now. Consult ID #Ambulatory Dysfunction, myopathy #thoracic myelopathy #Failed Laminectomy syndrome Freq falls happening at home, pt with bruising on chest CK elevated, downtrended CM consult for placement needs in this situation Ortho evaluated patient given left leg sensory loss and bilateral motor weakness: no surgical intervention given comorbidities stopped statin, fenofibrate and allopurinol and he is improved. Pending placement Need to continue turning patient q2h and helping to prevent breakdown on scrotum which is also swollen. Patient states that he is not turning every two hours, will discuss with nursing team. Expect myopathy to be oysterman, but may improve over the next several weeks. #Rhabdomyolysis *resolved -CK elevated on admission, improved with rehydration efforts and stopped statin, fibrate. #Lower extremity edema Pt with significant lower extremity edema Chest xray with noted cardiomegaly; Echo 60% EF, pHTN, LVH Swelling near resolved on exam but is present in his hands/upper extremities now, likely related to poor movement/weakness, no reported heart failure With resolution of SRAVANI, cont small oral dose of lasix with some improvement noted in UE swelling. LUE doppler negative for acute process Encourage extremity elevation and ambulation OOB to chair as tolerated. #SRAVANI *resolved #CKD stage III GFR ranges in 40s since 2019 Received IV lasix 40 07/18 #LLE swelling and erythema *improving Doppler US LLE with low suspicion for clot Completed course of antibiotics for presumptive cellulitis on admission #DMII Hgba1c of 7.4 Holding home meds Basal/Bolus insulin while hospitalized- noted that pt hypoglycemic in the AM. basal insulin held. BSG at goal, cont current regimen. #HTN chronic, stable. Cont coreg, lisinopril and lasix. #Chronic Pain Has morphine pump managed by [facility] management Consult placed to pain management for further pain management recs while in hosp Also on gabapentin, lyrica (noted both are gabapentinoids), cymbalta, tylenol for pain. Continue bowel regimen for chronic narcotic use- scheduled sennokot and metamucil, miralax ordered as pt on a pump Pain Consult placed on 07/16-no change in infusion worsened pain from shingles, gabapentin increased to 600mg TID and added PRN tramadol #Constipation Continue bowel regimen for chronic narcotic use -scheduled sennokot and metamucil, miralax as pt on a morphine pump BM 07/22 #HLD hold home statin and fibrate as may contribute to elevated CK and worsening myopathy. BPH/LUTS continue home meds Diet: Low sodium, DMII DVT prophylaxis: Lovenox CODE STATUS: DNR/DNI per POLST form Dispo: SNF I spent a total of 60minutes coordinating, documenting, and providing care for this patient excluding time spent in the performance of separately billed services DO Ozzie Navas Hospitalist Admission and Anticipated Discharge Date Admission Date: July 16, 2023 Subjective 83-year-old man with progressive weakness for the last few weeks. He lives alone in a single home reporting that a caregiver comes to his home once daily to assist him with feeds and all other cares provided by his family. He is unable to feed himself and has been nonambulatory for approximately 6 months using either a wheelchair or power scooter for mobility. He requires assistance of 2 people to perform transfers typically. Currently being evaluated for placement as he does not have assistance available from 10 PM to 8 AM despite help of family members. Multiple recent falls and progressive weakness. feels fatigued today and reports increased pain in his back increased gabapentin and added PRN Tramadol (notably on the morphine pain pump) tolerating PO swelling in upper extremities has resolved. Physical Exam 2 Physical Exam: CONSTITUTIONAL: obese, vitals as above, generally appears weak but in NAD EYES: normal conjunctivae, no scleral icterus ENT: external ear and nose normal, MMM NECK: trachea midline RESPIRATORY: clear to auscultation bilaterally, no crackles, rales or wheezes, normal respiratory effort CARDIOVASCULAR: regular rate and rhythm, S1 and 2 heard without murmurs, gallops or rubs, no JVD, UE swelling bilaterally-slightly improved. GASTROINTESTINAL: soft, nontender, ND, no guarding MUSCULOSKELETAL: generalized weakness, 2/5 strength throughout,improved strength but unable to move limbs through full range of motion. SKIN: warm and dry, shingles rash down leg and on buttocks, stage II decub buttock NEUROLOGIC: CN 2-12 grossly intact, unable to elicit DTRs in knees or brachioradialis, no sensory deficit, normal cognition, normal speech, no tremor PSYCHIATRIC: alert cooperative and answering questions appropriately, oriented Results & Data Results & Data Vital Signs (Past 12 Hours) Vital Signs Temp Pulse Resp BP Pulse Ox O2 Del Method 07/31/23 07:49 36.7 C 72 18 127/63 96 Room Air 07/30/23 23:47 36.9 C 61 18 137/65 96 Room Air Medications Administered Current Inpatient Medications Acetaminophen (Acetaminophen 500 Mg Tab) 1,000 mg PO Q8H PRN PRN Reason: Pain/fever Stop: 08/17/23 16:55 Last Admin: 07/31/23 08:07 Dose: 1,000 mg Aspirin (Aspirin 81 Mg Ectab) 81 mg PO QAM [facility] Stop: 08/16/23 08:59 Last Admin: 07/31/23 08:08 Dose: 81 mg Carvedilol (Carvedilol 25 Mg Tab) 25 mg PO BID [facility] Stop: 08/15/23 20:59 Last Admin: 07/31/23 08:07 Dose: 25 mg Dextrose (Dextrose 50% 50 Ml Syringe) 25 - 50 ml IV UD PRN; Protocol PRN Reason: Hypoglycemia Protocol Stop: 08/15/23 20:44 Duloxetine HCl (Duloxetine Hcl 20 Mg Cap) 20 mg PO DAILY [facility] Stop: 08/16/23 08:59 Last Admin: 07/31/23 08:09 Dose: 20 mg Enoxaparin Sodium (Enoxaparin Inj 40 Mg/0.4 Ml Syr) 40 mg SQ Q24H [facility] Stop: 08/15/23 21:59 Last Admin: 07/30/23 20:03 Dose: 40 mg Finasteride (Finasteride 5 Mg Tab) 5 mg PO QAM [facility] Stop: 08/16/23 08:59 Last Admin: 07/31/23 08:09 Dose: 5 mg Furosemide (Furosemide 20 Mg Tab) 20 mg PO QAM [facility] Stop: 08/26/23 08:59 Last Admin: 07/31/23 08:08 Dose: 20 mg Gabapentin (Gabapentin 300 Mg Cap) 300 mg PO TID [facility] Stop: 08/15/23 20:59 Last Admin: 07/31/23 08:09 Dose: 300 mg Glucagon (Glucagon For Inj 1 Mg Vial) 1 mg SQ UD PRN; Protocol PRN Reason: Hypoglycemia Protocol Stop: 08/15/23 20:44 Glucose (Glucose 10 Tab/Tube) 4 - 8 tab PO UD PRN; Protocol PRN Reason: Hypoglycemia Treatment Stop: 08/15/23 20:44 Glucose (Glucose 40% Gel 15 Gm Tube) 15 - 30 gm PO UD PRN; Protocol PRN Reason: Hypoglycemia Protocol Stop: 08/15/23 20:44 Acyclovir Sodium 892 mg/ (Dextrose) 267.84 mls @ 250 mls/hr IV Q8H [facility]; Protocol Stop: 08/03/23 19:59 Last Infusion: 07/31/23 06:32 Dose: Infused Insulin Aspart (Insulin Aspart Per Unit Charge) 0 units SC ACHS [facility] Stop: 08/15/23 20:59 Last Admin: 07/31/23 10:08 Dose: 14 units Lisinopril (Lisinopril 10 Mg Tab) 10 mg PO QAM [facility] Stop: 08/16/23 17:29 Last Admin: 07/31/23 08:08 Dose: 10 mg Mineral Oil (Mineral Oil 30 Ml Udc) 30 ml PO QPM [facility] Stop: 08/15/23 21:29 Last Admin: 07/30/23 20:03 Dose: 30 ml Miscellaneous (Carbohydrates For Hypoglycemia ) 15 - 30 gm PO UD PRN PRN Reason: Hypoglycemia Protocol Stop: 08/15/23 20:44 Last Admin: 07/18/23 08:20 Dose: 15 gm Morphine Sulfate (Morphine Pain Pump) 1 pump IT UD [facility] Stop: 08/15/23 19:14 Multivitamins (Multivitamin Tab) 1 tab PO QAM [facility] Stop: 08/16/23 08:59 Last Admin: 07/31/23 08:09 Dose: 1 tab Mupirocin (Mupirocin 2% Oint 22 Gm Tube) 1 appln EXT TID [facility] Stop: 08/22/23 08:59 Last Admin: 07/31/23 08:09 Dose: 1 appln Naloxone HCl (Naloxone Hcl 0.4 Mg/1 Ml Vial/Carp) 0.1 mg IV Q5M PRN PRN Reason: OVERSEDATION/RESP DEPRESSION Stop: 08/15/23 21:18 Polyethylene Glycol (Polyethylene (Miralax) 17 Gm Pack) 17 gm PO TID [facility] Stop: 08/21/23 13:59 Last Admin: 07/31/23 08:09 Dose: 17 gm Pregabalin (Pregabalin 50 Mg Cap) 50 mg PO BID [facility] Stop: 08/15/23 20:59 Last Admin: 07/31/23 08:07 Dose: 50 mg Sennosides (Senna 8.6 Mg Tab) 8.6 mg PO BID [facility] Stop: 08/21/23 12:59 Last Admin: 07/31/23 08:08 Dose: 8.6 mg Tamsulosin HCl (Tamsulosin Hcl 0.4 Mg Cap) 0.4 mg PO HS [facility] Stop: 08/15/23 20:59 Last Admin: 07/30/23 20:03 Dose: 0.4 mg
[2023-07-31] MEDS: traMADol HCL 50 MG TABLET PO PRN (18:19)
[2023-07-31] MEDS: MINERAL OIL 30 ML UDC PO SCH (20:58)
[2023-07-31] MEDS: ENOXAPARIN INJ 40 MG/0.4 ML SYR SQ SCH (20:59)
[2023-07-31] MEDS: TAMSULOSIN HCL 0.4 MG CAP PO SCH (20:59)
[2023-08-01] MEDS: ACYCLOVIR SOD IV SCH ×3 (03:19→20:36)
[2023-08-01] MEDS: DEXTROSE 5% IV SCH ×3 (03:19→20:36)
[2023-08-01 06:08] LABS: Hematocrit (blood only) 25.1 % (42.0-52.0); Mean Corpuscular Hemoglobin 30.1 pg (25.0-34.0); Mean Corpuscular Hgb Conc 31.9 g/dL (32.0-36.0); Mean Corpuscular Volume 94.4 fL (80.0-100.0); Mean Platelet Volume 9.6 fL (9.4-12.4); Nucleated RBC # (auto) 0.02 K/uL (0.00-0.12); Nucleated RBC % (auto) 0.3 %; Platelet Count 436 K/uL (130-400); RDW Coefficient of Variation 15.7 % (11.5-14.5); RDW Standard Deviation 53.6 fL (36.4-46.3); Red Blood Count 2.66 M/uL (4.70-6.10); White Blood Count 7.49 K/ul (4.8-10.8)
[2023-08-01 06:16] LABS: BUN Creatinine Ratio 36.1 (10-20); Calcium 8.8 mg/dl (8.6-10.3); Creatinine Clr Calc Pharmacy 49.6 ml/min; Est GFR (Non-African American) 44.9 ml/min; Potassium 4.3 mmol/L (3.5-5.1)
[2023-08-01] MEDS: traMADol HCL 50 MG TABLET PO PRN (08:43)
[2023-08-01] MEDS: PREGABALIN 50 MG CAP PO SCH ×2 (08:45→20:39)
[2023-08-01] MEDS: GABAPENTIN 300 MG CAP PO SCH ×3 (08:46→20:37)
[2023-08-01] MEDS: SENNA 8.6 MG TAB PO SCH ×2 (08:46→20:39)
[2023-08-01] MEDS: FUROSEMIDE 20 MG TAB PO SCH (08:47)
[2023-08-01] MEDS: MULTIVITAMIN TAB PO SCH (08:47)
[2023-08-01] MEDS: DULoxetine HCL 20 MG CAP PO SCH (08:47)
[2023-08-01] MEDS: ASPIRIN 81 MG ECTAB PO SCH (08:47)
[2023-08-01] MEDS: lisinopril 10 MG TAB PO SCH (08:47)
[2023-08-01] MEDS: POLYETHYLENE (MIRALAX) 17 GM PACK PO SCH ×3 (08:48→20:40)
[2023-08-01] MEDS: FINASTERIDE 5 MG TAB PO SCH (08:48)
[2023-08-01] MEDS: carvediloL 25 MG TAB PO SCH ×2 (08:48→20:38)
[2023-08-01] MEDS: MUPIROCIN 2% OINT 22 GM TUBE EXT SCH ×3 (08:48→20:41)
[2023-08-01] MEDS: INSULIN ASPART PER UNIT CHARGE SC SCH ×4 (09:15→20:36)
--- NOTE | 2023-08-01 09:38 | Hospitalist Progress Note ---
Date of Service August 01, 2023 Assessment & Plan (1) Myopathy: (2) Disseminated herpes zoster: (3) Ambulatory dysfunction: (4) Bilateral edema of lower extremity: (5) S/P insertion of intrathecal pump: (6) Myelomalacia of cervical cord: (7) Cellulitis: Plan Mr. Yepez is an 83 year old gentleman with PMHx significant for chronic pain with morphine pump, DMII and BPH admitted for placement per family, after a few weeks of generalized progressive weakness, likely attributed to worsening myopathy and weakness after simultaneous UTI and herpes zoster infection in the setting of statin, fibrate therapy and allopurinol. Patient was noted to have lower extremity edema upon admission, which improved with IV diuresis. ECHO did not revealed diastolic dysfunction, but questionable PHTN. Further diuresis limited 2/2 SRAVANI, which is improving with cessation of lasix on 07/18. Patient with elevated CK since admission, IVF given fro 48 hours and stopped on 07/23 [facility] evaluated patient given chronic persistent lower back pain with new onset severe weakness in both of his legs. This was felt to be infection affecting his underlying failed laminectomy syndrome. No surgical intervention given complex comorbidities making patient poor candidate. Broadened coverage with zosyn on 07/22 2/2 fevers and clinically poor appearance--appears much better; notably lesion on buttock concerning for shingles recurrence. Discontinued Zosyn given negative infectious work up and pursue recurrent shingles treatment with contact precautions. Patient without new concerns, will continue to monitor. Patient has been medically stable now for over 48 hours and reports feeling well. Encouraged nursing and patient to keep LUE elevated 2/2 edema as much as possible and turn q2h as able. Consulted neurology. Initial suggestions included consideration for stopping statin, fibrate and allopurinol as all of these may contribute to myopathy (noted elevated CK). Also started IV acyclovir (07/27) with clinical improvement in his energy level and weakness. Cont this through the weekend at least and will plan to transfer back to [facility] once he gets a bed at [facility] Disseminated Zoster New lesions on buttock c/w herpes zoster Airborne precautions Acyclovir with improvement , continue this for now. Consult ID #Ambulatory Dysfunction, myopathy #thoracic myelopathy #Failed Laminectomy syndrome Freq falls happening at home, pt with bruising on chest CK elevated, downtrended CM consult for placement needs in this situation Ortho evaluated patient given left leg sensory loss and bilateral motor weakness: no surgical intervention given comorbidities stopped statin, fenofibrate and allopurinol and he is improved. Pending placement Need to continue turning patient q2h and helping to prevent breakdown on scrotum which is also swollen. Patient states that he is not turning every two hours, will discuss with nursing team. Expect myopathy to be oil heaterman, but may improve over the next several weeks. #Rhabdomyolysis *resolved -CK elevated on admission, improved with rehydration efforts and stopped statin, fibrate. #Lower extremity edema Pt with significant lower extremity edema Chest xray with noted cardiomegaly; Echo 60% EF, pHTN, LVH Swelling near resolved on exam but is present in his hands/upper extremities now, likely related to poor movement/weakness, no reported heart failure With resolution of SRAVANI, cont small oral dose of lasix with some improvement noted in UE swelling. LUE doppler negative for acute process Encourage extremity elevation and ambulation OOB to chair as tolerated. #SRAVANI *resolved #CKD stage III GFR ranges in 40s since 2019 Received IV lasix 40 07/18 #LLE swelling and erythema *improving Doppler US LLE with low suspicion for clot Completed course of antibiotics for presumptive cellulitis on admission #DMII Hgba1c of 7.4 Holding home meds Basal/Bolus insulin while hospitalized- noted that pt hypoglycemic in the AM. basal insulin held. BSG at goal, cont current regimen. #HTN chronic, stable. Cont coreg, lisinopril and lasix. #Chronic Pain Has morphine pump managed by [facility] Consult placed to pain management for further pain management recs while in hosp Also on gabapentin, lyrica (noted both are gabapentinoids), cymbalta, tylenol for pain. Continue bowel regimen for chronic narcotic use- scheduled sennokot and metamucil, miralax ordered as pt on a pump Pain Consult placed on 07/16-no change in infusion worsened pain from shingles, gabapentin increased to 600mg TID and added PRN tramadol #Constipation Continue bowel regimen for chronic narcotic use -scheduled sennokot and metamucil, miralax as pt on a morphine pump BM 07/22 #HLD hold home statin and fibrate as may contribute to elevated CK and worsening myopathy. BPH/LUTS continue home meds Diet: Low sodium, DMII DVT prophylaxis: Lovenox CODE STATUS: DNR/DNI per POLST form Dispo: SNF DO Ozzie Navas Hospitalist Admission and Anticipated Discharge Date Admission Date: July 16, 2023 Subjective 83-year-old man with progressive weakness for the last few weeks. He lives alone in a single home reporting that a caregiver comes to his home once daily to assist him with feeds and all other cares provided by his family. He is unable to feed himself and has been nonambulatory for approximately 6 months using either a wheelchair or power scooter for mobility. He requires assistance of 2 people to perform transfers typically. Currently being evaluated for placement as he does not have assistance available from 10 PM to 8 AM despite help of family members. Multiple recent falls and progressive weakness. feels fatigued today and reports increased pain in his back pain is better controlled tolerating PO swelling in upper extremities has resolved. "I had a good day" Physical Exam Physical Exam: CONSTITUTIONAL: obese, vitals as above, generally appears weak but in NAD EYES: normal conjunctivae, no scleral icterus ENT: external ear and nose normal, MMM NECK: trachea midline RESPIRATORY: clear to auscultation bilaterally, no crackles, rales or wheezes, normal respiratory effort CARDIOVASCULAR: regular rate and rhythm, S1 and 2 heard without murmurs, gallops or rubs, no JVD, UE swelling bilaterally-slightly improved. GASTROINTESTINAL: soft, nontender, ND, no guarding MUSCULOSKELETAL: generalized weakness, 2/5 strength throughout,improved strength but unable to move limbs through full range of motion. SKIN: warm and dry, shingles rash down leg and on buttocks, stage II decub buttock (not visualized today 2/2 weakness) NEUROLOGIC: CN 2-12 grossly intact, unable to elicit DTRs in knees or brachioradialis, no sensory deficit, normal cognition, normal speech, no tremor PSYCHIATRIC: alert cooperative and answering questions appropriately, oriented Results & Data Results & Data Vital Signs (Past 12 Hours) Vital Signs Temp Pulse Resp BP Pulse Ox O2 Del Method 08/01/23 07:20 36.8 C 72 18 127/66 96 Room Air 08/01/23 02:38 36.9 C 86 20 124/63 95 Room Air 07/31/23 23:12 36.8 C 68 20 117/63 95 Room Air 07/31/23 21:47 Room Air Laboratory Results Short CBC 08/01/23 Range/Units 05:22 WBC 7.49 (4.8-10.8) K/ul Hgb 8.0 L (14.0-18.0) g/dl Hct 25.1 L (42.0-52.0) % Plt Count 436 H (130-400) K/uL BMP 08/01/23 05:22 Sodium 134 L Potassium 4.3 Chloride 101 Carbon Dioxide 30 BUN 52 H Creatinine 1.44 H Glucose 145 H Calcium 8.8 Medications Administered Current Inpatient Medications Acetaminophen (Acetaminophen 500 Mg Tab) 1,000 mg PO Q8H PRN PRN Reason: Pain/fever Stop: 08/17/23 16:55 Last Admin: 07/31/23 08:07 Dose: 1,000 mg Aspirin (Aspirin 81 Mg Ectab) 81 mg PO QAM SARITA Stop: 08/16/23 08:59 Last Admin: 08/01/23 08:47 Dose: 81 mg Carvedilol (Carvedilol 25 Mg Tab) 25 mg PO BID SARITA Stop: 08/15/23 20:59 Last Admin: 08/01/23 08:48 Dose: 25 mg Dextrose (Dextrose 50% 50 Ml Syringe) 25 - 50 ml IV UD PRN; Protocol PRN Reason: Hypoglycemia Protocol Stop: 08/15/23 20:44 Duloxetine HCl (Duloxetine Hcl 20 Mg Cap) 20 mg PO DAILY SARITA Stop: 08/16/23 08:59 Last Admin: 08/01/23 08:47 Dose: 20 mg Enoxaparin Sodium (Enoxaparin Inj 40 Mg/0.4 Ml Syr) 40 mg SQ Q24H SARITA Stop: 08/15/23 21:59 Last Admin: 07/31/23 20:59 Dose: 40 mg Finasteride (Finasteride 5 Mg Tab) 5 mg PO QAM SARITA Stop: 08/16/23 08:59 Last Admin: 08/01/23 08:48 Dose: 5 mg Furosemide (Furosemide 20 Mg Tab) 20 mg PO QAM SARITA Stop: 08/26/23 08:59 Last Admin: 08/01/23 08:47 Dose: 20 mg Gabapentin (Gabapentin 300 Mg Cap) 600 mg PO TID SARITA Stop: 08/30/23 20:59 Last Admin: 08/01/23 08:46 Dose: 600 mg Glucagon (Glucagon For Inj 1 Mg Vial) 1 mg SQ UD PRN; Protocol PRN Reason: Hypoglycemia Protocol Stop: 08/15/23 20:44 Glucose (Glucose 10 Tab/Tube) 4 - 8 tab PO UD PRN; Protocol PRN Reason: Hypoglycemia Treatment Stop: 08/15/23 20:44 Glucose (Glucose 40% Gel 15 Gm Tube) 15 - 30 gm PO UD PRN; Protocol PRN Reason: Hypoglycemia Protocol Stop: 08/15/23 20:44 Acyclovir Sodium 892 mg/ (Dextrose) 267.84 mls @ 250 mls/hr IV Q8H [facility]; Protocol Stop: 08/03/23 19:59 Last Infusion: 08/01/23 04:28 Dose: Infused Insulin Aspart (Insulin Aspart Per Unit Charge) 0 units SC ACHS [facility] Stop: 08/15/23 20:59 Last Admin: 07/31/23 20:39 Dose: Not Given Lisinopril (Lisinopril 10 Mg Tab) 10 mg PO QAM [facility] Stop: 08/16/23 17:29 Last Admin: 08/01/23 08:47 Dose: 10 mg Mineral Oil (Mineral Oil 30 Ml Udc) 30 ml PO QPM SARITA Stop: 08/15/23 21:29 Last Admin: 07/31/23 20:58 Dose: Not Given Miscellaneous (Carbohydrates For Hypoglycemia ) 15 - 30 gm PO UD PRN PRN Reason: Hypoglycemia Protocol Stop: 08/15/23 20:44 Last Admin: 07/18/23 08:20 Dose: 15 gm Morphine Sulfate (Morphine Pain Pump) 1 pump IT UD [facility] Stop: 08/15/23 19:14 Multivitamins (Multivitamin Tab) 1 tab PO QAM [facility] Stop: 08/16/23 08:59 Last Admin: 08/01/23 08:47 Dose: 1 tab Mupirocin (Mupirocin 2% Oint 22 Gm Tube) 1 appln EXT TID [facility] Stop: 08/22/23 08:59 Last Admin: 08/01/23 08:48 Dose: 1 appln Naloxone HCl (Naloxone Hcl 0.4 Mg/1 Ml Vial/Carp) 0.1 mg IV Q5M PRN PRN Reason: OVERSEDATION/RESP DEPRESSION Stop: 08/15/23 21:18 Polyethylene Glycol (Polyethylene (Miralax) 17 Gm Pack) 17 gm PO TID [facility] Stop: 08/21/23 13:59 Last Admin: 08/01/23 08:48 Dose: Not Given Pregabalin (Pregabalin 50 Mg Cap) 50 mg PO BID [facility] Stop: 08/15/23 20:59 Last Admin: 08/01/23 08:45 Dose: 50 mg Sennosides (Senna 8.6 Mg Tab) 8.6 mg PO BID [facility] Stop: 08/21/23 12:59 Last Admin: 08/01/23 08:46 Dose: 8.6 mg Tamsulosin HCl (Tamsulosin Hcl 0.4 Mg Cap) 0.4 mg PO HS [facility] Stop: 08/15/23 20:59 Last Admin: 07/31/23 20:59 Dose: 0.4 mg Tramadol HCl (Tramadol Hcl 50 Mg Tablet) 50 - 100 mg PO Q6H PRN PRN Reason: pain Stop: 08/30/23 15:29 Last Admin: 08/01/23 08:43 Dose: 50 mg
[2023-08-01] MEDS: ACETAMINOPHEN 500 MG TAB PO PRN (13:06)
[2023-08-01] MEDS: ENOXAPARIN INJ 40 MG/0.4 ML SYR SQ SCH (20:37)
[2023-08-01] MEDS: MINERAL OIL 30 ML UDC PO SCH (20:39)
[2023-08-01] MEDS: TAMSULOSIN HCL 0.4 MG CAP PO SCH (20:42)
[2023-08-02] MEDS: DEXTROSE 5% IV SCH ×3 (03:38→18:07)
[2023-08-02] MEDS: ACYCLOVIR SOD IV SCH ×3 (03:38→18:07)
[2023-08-02 04:53] LABS: Creatinine Clr Calc Pharmacy 46.6 ml/min; Est GFR (African American) 48.4 ml/min; Est GFR (Non-African American) 41.7 ml/min
[2023-08-02] MEDS: FUROSEMIDE 20 MG TAB PO SCH (09:00)
[2023-08-02] MEDS: carvediloL 25 MG TAB PO SCH ×2 (09:00→21:16)
[2023-08-02] MEDS: SENNA 8.6 MG TAB PO SCH ×2 (09:00→21:18)
[2023-08-02] MEDS: FINASTERIDE 5 MG TAB PO SCH (09:00)
[2023-08-02] MEDS: lisinopril 10 MG TAB PO SCH (09:00)
[2023-08-02] MEDS: MULTIVITAMIN TAB PO SCH (09:00)
[2023-08-02] MEDS: GABAPENTIN 300 MG CAP PO SCH ×3 (09:00→21:16)
[2023-08-02] MEDS: POLYETHYLENE (MIRALAX) 17 GM PACK PO SCH ×3 (09:00→21:19)
[2023-08-02] MEDS: PREGABALIN 50 MG CAP PO SCH ×2 (09:00→21:34)
[2023-08-02] MEDS: ASPIRIN 81 MG ECTAB PO SCH (09:00)
[2023-08-02] MEDS: MUPIROCIN 2% OINT 22 GM TUBE EXT SCH ×3 (09:00→21:26)
[2023-08-02] MEDS: DULoxetine HCL 20 MG CAP PO SCH (10:51)
[2023-08-02] MEDS: INSULIN ASPART PER UNIT CHARGE SC SCH ×4 (10:51→21:34)
--- NOTE | 2023-08-02 11:37 | Hospitalist Progress Note ---
Date of Service August 02, 2023 Assessment & Plan (1) Myopathy: (2) Disseminated herpes zoster: (3) Ambulatory dysfunction: (4) Bilateral edema of lower extremity: (5) S/P insertion of intrathecal pump: (6) Myelomalacia of cervical cord: (7) Cellulitis: Plan Mr. Yepez is an 83 year old gentleman with PMHx significant for chronic pain with morphine pump, DMII and BPH admitted for placement per family, after a few weeks of generalized progressive weakness, likely attributed to worsening myopathy and weakness after simultaneous UTI and herpes zoster infection in the setting of statin, fibrate therapy and allopurinol. Patient was noted to have lower extremity edema upon admission, which improved with IV diuresis. ECHO did not revealed diastolic dysfunction, but questionable PHTN. Further diuresis limited 2/2 SRAVANI, which is improving with cessation of lasix on 07/18. Patient with elevated CK since admission, IVF given fro 48 hours and stopped on 07/23 [facility] evaluated patient given chronic persistent lower back pain with new onset severe weakness in both of his legs. This was felt to be infection affecting his underlying failed laminectomy syndrome. No surgical intervention given complex comorbidities making patient poor candidate. Broadened coverage with zosyn on 07/22 2/2 fevers and clinically poor appearance--appears much better; notably lesion on buttock concerning for shingles recurrence. Discontinued Zosyn given negative infectious work up and pursue recurrent shingles treatment with contact precautions. Shingles treatment was escalated to IV acyclovir given concern for disseminated shingles. ID consulted. Consulted neurology. Initial suggestions included consideration for stopping statin, fibrate and allopurinol as all of these may contribute to myopathy (noted elevated CK). #Disseminated Zoster New lesions on buttock c/w herpes zoster Airborne precautions Transitioned from PO valacyclovir to IV acyclovir Obtain VZV/HSV swabs of lesions; plan for 14 days total of IV if negative, if swabs positive will discuss with ID #Ambulatory Dysfunction, myopathy #thoracic myelopathy #Failed Laminectomy syndrome Freq falls happening at home, pt with bruising on chest CK elevated, downtrended CM consult for placement needs in this situation Ortho evaluated patient given left leg sensory loss and bilateral motor weakness: no surgical intervention given comorbidities stopped statin, fenofibrate and allopurinol and he is improved. Pending placement Need to continue turning patient q2h and helping to prevent breakdown on scrotum which is also swollen. Patient states that he is not turning every two hours, will discuss with nursing team. Expect myopathy to be controlled area checker, but may improve over the next several weeks. #Rhabdomyolysis *resolved -CK elevated on admission, improved with rehydration efforts and stopped statin, fibrate. #Lower extremity edema Pt with significant lower extremity edema Chest xray with noted cardiomegaly; Echo 60% EF, pHTN, LVH Swelling near resolved on exam but is present in his hands/upper extremities now, likely related to poor movement/weakness, no reported heart failure With resolution of SRAVANI, cont small oral dose of lasix with some improvement noted in UE swelling. LUE doppler negative for acute process Encourage extremity elevation and ambulation OOB to chair as tolerated. #SRAVANI *resolved #CKD stage III GFR ranges in 40s since 2019 Received IV lasix 40 07/18 #LLE swelling and erythema *improving Doppler US LLE with low suspicion for clot Completed course of antibiotics for presumptive cellulitis on admission #DMII Hgba1c of 7.4 Holding home meds Basal/Bolus insulin while hospitalized- noted that pt hypoglycemic in the AM. basal insulin held. BSG at goal, cont current regimen. #HTN chronic, stable. Cont coreg, lisinopril and lasix. #Chronic Pain Has morphine pump managed by [facility] management Consult placed to pain management for further pain management recs while in hosp Also on gabapentin, lyrica (noted both are gabapentinoids), cymbalta, tylenol for pain. Continue bowel regimen for chronic narcotic use- scheduled sennokot and metamucil, miralax ordered as pt on a pump Pain Consult placed on 07/16-no change in infusion worsened pain from shingles, gabapentin increased to 600mg TID and added PRN tramadol #Constipation Continue bowel regimen for chronic narcotic use -scheduled sennokot and metamucil, miralax as pt on a morphine pump BM 07/22 #HLD hold home statin and fibrate as may contribute to elevated CK and worsening myopathy. BPH/LUTS continue home meds Diet: Low sodium, DMII DVT prophylaxis: Lovenox CODE STATUS: DNR/DNI per POLST form Dispo: SNF I spent a total [id number] coordinating, documenting, and providing care for this patient excluding time spent in the performance of separately billed services Admission and Anticipated Discharge Date Admission Date: July 16, 2023 Subjective NAEO Reports feeling much better generally; endorses back pain--states the "skin" isn't burning or irritated, that this pain is his ongoing chronic low back pain Physical Exam Constitutional: WD/WN, vitals as above Respiratory: normal respiratory effort, lungs clear to auscultation Cardiovascular: RRR, no murmur, no edema Results & Data Results & Data Vital Signs (Past 12 Hours) Vital Signs Temp Pulse Resp BP Pulse Ox O2 Del Method 08/02/23 08:38 36.5 C 66 16 132/66 98 Room Air Laboratory Results BMP 08/02/23 03:10 Creatinine 1.53 H Medications Administered Home Medications Medication Instructions Recorded Confirmed Last Taken carvedilol 25 mg tablet 25 mg PO BID 06/11/18 07/16/23 07/16/23 allopurinol 300 mg tablet 300 mg PO QAM #30 tabs 11/02/18 07/16/23 07/16/23 semaglutide 1 mg/dose (2 mg/1.5 2 mg subcut WK 01/10/19 07/16/23 07/11/23 mL) subcutaneous pen injector (Ozempic) fenofibrate nanocrystallized 145 145 mg PO QPM 05/22/19 07/16/23 07/15/23 mg tablet rosuvastatin 20 mg tablet 20 mg PO HS 05/22/19 07/16/23 07/15/23 tamsulosin 0.4 mg capsule 0.4 mg PO HS #90 caps 06/10/20 07/16/23 07/15/23 finasteride 5 mg tablet 5 mg PO QAM 05/07/21 07/16/23 07/16/23 mineral oil 30 ml PO QPM 05/07/21 07/16/23 07/15/23 multivitamin 1 tab PO QAM 05/07/21 07/16/23 07/16/23 psyllium husk 3.4 gram/5.4 gram 1 tbsp PO QAM 05/07/21 07/16/23 07/16/23 oral powder (Metamucil) MoRPHine PAIN PUMP 1 pump intrathecal UD #1 unit 04/27/22 07/16/23 07/16/23 naloxone 4 mg/actuation nasal 1 spray intranasal Q3M PRN opioid 04/27/22 07/16/23 Unknown spray (Narcan) overdose #2 ea dapagliflozin propanediol 5 mg 5 mg PO DAILY 05/11/22 07/16/23 07/16/23 tablet (Farxiga) insulin degludec 100 unit/mL 34 unit subcut HS 05/11/22 07/16/23 07/15/23 subcutaneous solution (Tresiba U-100 Insulin) acetaminophen 650 mg 650 - 1,300 mg PO Q8H 12/02/22 07/16/23 07/16/23 tablet,extended release (Tylenol 8 Hour) duloxetine 20 mg capsule,delayed 20 mg PO DAILY 12/02/22 07/16/23 07/15/23 release gabapentin 300 mg capsule 300 mg PO TID 12/02/22 07/16/23 07/16/23 sennosides 8.6 mg tablet (Natural 8.6 mg PO DAILY 12/02/22 07/16/23 07/15/23 Senna Laxative) aspirin 81 mg tablet,delayed 81 mg PO QAM 12/21/22 07/16/23 07/16/23 release (Aspir-) pregabalin 50 mg capsule (Lyrica) 50 mg PO BID 07/16/23 07/16/23 Unknown valacyclovir 1 gram tablet 1,000 mg PO TID 07/16/23 07/16/23 Unknown (Valtrex) Active Medications Generic Name Dose Route Start Last Admin Trade Name Freq PRN Reason Stop Dose Admin Acetaminophen 1,000 mg 07/24/23 16:27 08/01/23 13:06 Acetaminophen 500 Mg Tab PO 08/17/23 16:55 1,000 mg Q8H PRN Administration Pain/fever Aspirin 81 mg 07/17/23 09:00 08/02/23 09:00 Aspirin 81 Mg Ectab PO 08/16/23 08:59 81 mg QAM SARITA Administration Carvedilol 25 mg 07/16/23 21:00 08/02/23 09:00 Carvedilol 25 Mg Tab PO 08/15/23 20:59 25 mg BID SARITA Administration Duloxetine HCl 20 mg 07/17/23 09:00 08/02/23 10:51 Duloxetine Hcl 20 Mg Cap PO 08/16/23 08:59 20 mg DAILY SARITA Administration Enoxaparin Sodium 40 mg 07/16/23 22:00 08/01/23 20:37 Enoxaparin Inj 40 Mg/0.4 Ml Syr SQ 08/15/23 21:59 40 mg Q24H SARITA Administration Finasteride 5 mg 07/17/23 09:00 08/02/23 09:00 Finasteride 5 Mg Tab PO 08/16/23 08:59 5 mg QAM SARITA Administration Furosemide 20 mg 07/27/23 09:00 08/02/23 09:00 Furosemide 20 Mg Tab PO 08/26/23 08:59 20 mg QAM SARITA Administration Gabapentin 600 mg 07/31/23 21:00 08/02/23 09:00 Gabapentin 300 Mg Cap PO 08/30/23 20:59 600 mg TID SARITA Administration Acyclovir Sodium 892 mg/ 267.84 mls @ 250 mls/hr 07/27/23 20:00 08/02/23 05:10 Dextrose IV 08/03/23 19:59 Infused Q8H [facility]ITA Infusion Protocol Insulin Aspart 0 units 07/16/23 21:00 08/02/23 10:51 Insulin Aspart Per Unit Charge SC 08/15/23 20:59 7 units ACHS SARITA Administration Lisinopril 10 mg 07/17/23 17:30 08/02/23 09:00 Lisinopril 10 Mg Tab PO 08/16/23 17:29 10 mg QAM SARITA Administration Mineral Oil 30 ml 07/16/23 21:30 08/01/23 20:39 Mineral Oil 30 Ml Udc PO 08/15/23 21:29 30 ml QPM SARITA Administration Miscellaneous 15 - 30 gm 07/16/23 20:45 07/18/23 08:20 Carbohydrates For Hypoglycemia PO 08/15/23 20:44 15 gm UD PRN Administration Hypoglycemia Protocol Multivitamins 1 tab 07/17/23 09:00 08/02/23 09:00 Multivitamin Tab PO 08/16/23 08:59 1 tab QAM SARITA Administration Mupirocin 1 appln 07/23/23 09:00 08/02/23 09:00 Mupirocin 2% Oint 22 Gm Tube EXT 08/22/23 08:59 1 appln TID SARITA Administration Polyethylene Glycol 17 gm 07/22/23 14:00 08/02/23 09:00 Polyethylene (Miralax) 17 Gm Pack PO 08/21/23 13:59 17 gm TID SARITA Administration Pregabalin 50 mg 07/16/23 21:00 08/02/23 09:00 Pregabalin 50 Mg Cap PO 08/15/23 20:59 50 mg BID SARITA Administration Sennosides 8.6 mg 07/22/23 13:00 08/02/23 09:00 Senna 8.6 Mg Tab PO 08/21/23 12:59 8.6 mg BID SARITA Administration Tamsulosin HCl 0.4 mg 07/16/23 21:00 08/01/23 20:42 Tamsulosin Hcl 0.4 Mg Cap PO 08/15/23 20:59 0.4 mg HS SARITA Administration Tramadol HCl 50 - 100 mg 07/31/23 15:27 08/01/23 08:43 Tramadol Hcl 50 Mg Tablet PO 08/30/23 15:29 50 mg Q6H PRN Administration pain
--- NOTE | 2023-08-02 12:17 | Infectious Disease Consult ---
Date of Service August 02, 2023 Telehealth Information I performed this visit using a real-time telehealth connection between my location and the patients location ([facility]). After connecting through interactive tele-video, patient was identified by name and date of and/or wristband check.Patient (or authorized healthcare career services representative) was informed that this was a telemedicine visit and it was being conducted confidentially over secure lines. My office door was closed and no one else was present in the room with me.Patient (or authorized healthcare career services representative) provided consent to proceed with the visit, expressed an understanding of privacy and security of the telemedicine visit, and gave permission to have a hospital career services representative in the room in order to assist with the visit and to conduct portions of the visit, as needed. I informed the patient (or authorized healthcare career services representative) that I reviewed their record and presented the opportunity for them to ask any questions regarding the visit today. The patient agreed to participate. Assessment & Plan (1) Rash and nonspecific skin eruption: (2) Myelomalacia of cervical cord: (3) Bedridden: Plan - Based on the picture of the rash in the chart, he rash distribution (down the thigh) and my exam of the area thru the telemed camera, I have low concerns for shingles or disseminated zoster. Disseminated zoster usually occurs in severely immunocompromised population which is not the case here. I think this is likely a stage II pressure ulcer - I would recommend swabbing the lesions and sending for VZV/HSV PCR. If nega tive, then stop acyclovir. If positive, can continue acyclovir for total of 14 days. Step down to valacyclovir on discharge to complete the course of treatment. - Thank you for consulting ID. We will continue to follow. History of Present Illness History of Present Illness Mr. Yepez is an 83-year-old man with medical history of chronic back pain due to myelomalacia of the cervical cord (on morphine intrathecal pump, wheelchair and bedridden and has not been ambulating for several months), type 2 diabetes, and dyslipidemia who was admitted to [facility] on 07/16 for placement. He was diagnosed with shingles as outpatient and was started on Valtrex which he has been taking for the last 2 days prior to presentation. Per patient report, he mentioned that he was noticed to have pimples over his left buttock extending down his thigh few days prior to admission and he was started on medications by his primary care physician. He also reported that these lesions have been getting better and has almost resolved since then. While in the hospital, he was left on Valtrex for few days and then on 07/27 he was started on IV acyclovir for suspected disseminated zoster. ID team was consulted for further recommendations and to help with the management of disseminated zoster. Allergies Allergy/AdvReac Type Severity Reaction Status Date / Time cyclobenzaprine AdvReac Severe Disorientation, Verified 07/16/23 16:00 confusion Home Medications Medication Instructions Recorded Confirmed Type carvedilol 25 mg tablet 25 mg PO BID 06/11/18 07/16/23 History allopurinol 300 mg tablet 300 mg PO QAM #30 tabs 11/02/18 07/16/23 Rx semaglutide 1 mg/dose (2 mg/1.5 2 mg subcut WK 01/10/19 07/16/23 History mL) subcutaneous pen injector (Ozempic) fenofibrate nanocrystallized 145 145 mg PO QPM 05/22/19 07/16/23 History mg tablet rosuvastatin 20 mg tablet 20 mg PO HS 05/22/19 07/16/23 History tamsulosin 0.4 mg capsule 0.4 mg PO HS #90 caps 06/10/20 07/16/23 Rx finasteride 5 mg tablet 5 mg PO QAM 05/07/21 07/16/23 History mineral oil 30 ml PO QPM 05/07/21 07/16/23 History multivitamin 1 tab PO QAM 05/07/21 07/16/23 History psyllium husk 3.4 gram/5.4 gram 1 tbsp PO QAM 05/07/21 07/16/23 History oral powder (Metamucil) MoRPHine PAIN PUMP 1 pump intrathecal UD #1 unit 04/27/22 07/16/23 Rx naloxone 4 mg/actuation nasal 1 spray intranasal Q3M PRN opioid 04/27/22 07/16/23 Rx spray (Narcan) overdose #2 ea dapagliflozin propanediol 5 mg 5 mg PO DAILY 05/11/22 07/16/23 History tablet (Farxiga) insulin degludec 100 unit/mL 34 unit subcut HS 05/11/22 07/16/23 History subcutaneous solution (Tresiba U-100 Insulin) acetaminophen 650 mg 650 - 1,300 mg PO Q8H 12/02/22 07/16/23 History tablet,extended release (Tylenol 8 Hour) duloxetine 20 mg capsule,delayed 20 mg PO DAILY 12/02/22 07/16/23 History release gabapentin 300 mg capsule 300 mg PO TID 12/02/22 07/16/23 History sennosides 8.6 mg tablet (Natural 8.6 mg PO DAILY 12/02/22 07/16/23 History Senna Laxative) aspirin 81 mg tablet,delayed 81 mg PO QAM 12/21/22 07/16/23 History release (Aspir-) pregabalin 50 mg capsule (Lyrica) 50 mg PO BID 07/16/23 07/16/23 History valacyclovir 1 gram tablet 1,000 mg PO TID 07/16/23 07/16/23 History (Valtrex) Patient History Medical History Anemia Chronic Carotid artery stenosis s/p left CEA (2006) CKD (chronic kidney disease) Coronary artery disease CABG x2 (2006) Follows Dr. York ([place]) Diabetes mellitus, type 2 IDDM Dyslipidemia Frozen shoulder Gout History of atrial fibrillation s/p radiofrequency ablation (2011) Follows Dr. York ([place]) History of blood transfusion Post-op (2017) History of kidney stones Hx of atrial flutter 4:1 AV conduction s/p cardioversion x2 and subsequent successful RFA (2011) Hx of sleep apnea Refuses CPAP per records Uses oxygen 2L HS N/C Hypertension Myelomalacia of cervical cord Myofascial pain Obesity Postlaminectomy syndrome of lumbosacral region Presence of intrathecal pump Prostate cancer s/p radiation (2016) Spinal stenosis Weakness Surgical History H/O cardiac radiofrequency ablation atrial flutter converted to NSR History of cystoscopy + stent (08/06/18): MAC sedation at [facility] History of difficult intubation L2-S1 fusion 06/19/2014 - "poor visualization with MAC 4. Glidescope #4 utilized. Lg tongue with much soft tissue." History of lumbar fusion x 4 back surgeries History of open reduction and internal fixation (ORIF) procedure R/L ankles () History of surgery Morphine epidural pump trial (03/01/22): MAC at [facility]. No issues noted per post- op anesthesia progress note. S/P CABG x 2 FRANCO-LAD; LAD-D1 SUB BRANCH (2006) S/P carotid endarterectomy Left (2006) S/P insertion of intrathecal pump Family History Grandmother Diabetes Other Alzheimer disease Prostate cancer Social History Smoking Status: Current some day smoker Tobacco Type: Cigars Second Hand Exposure: No; Do You Dip or Chew Tobacco: No; Hx Alcohol Use: No Hx Substance Use: No Preferred Language: Armenian Communication Ability: Effective Communication Ability Comment: SLIGHT HEARD OF HEARING Visual Impairment: No Limitations Director Speech Required: No Beliefs That Will Affect Care: None marital status: / Current Living Situation: Alone current occupational status: retired How many Children do You have: 4 Feels Safe at Home: Yes Assistive Devices: Hospital Bed, Lift Chair, Oxygen - at Night and Scoo ter/Electric Scooter Review of Systems Constitutional: no fever or chills HEENT: no sore throat, no nasal discharge Cardiovascular: no chest pain, or palpitations Respiratory: no shortness of breath, no cough Gastrointestinal: No nausea, vomiting, diarrhea or abdominal pain : No dysuria or hesitancy, no urinary discharge Musculoskeletal/Skin: Lt buttock ulcer and rash Neurologic: no dizziness or headache Physical Exam PE was not performed as the encounter was Telemed. Results & Data Vital Signs (Past 12 Hours) Vital Signs Temp Pulse Resp BP Pulse Ox O2 Del Method 08/02/23 08:38 36.5 C 66 16 132/66 98 Room Air Laboratory Results Urine Cx on 07/22: Negative Diagnostic Findings No relevant imaging.
[2023-08-02] MEDS: MINERAL OIL 30 ML UDC PO SCH (21:17)
[2023-08-02] MEDS: TAMSULOSIN HCL 0.4 MG CAP PO SCH (21:18)
[2023-08-02] MEDS: ENOXAPARIN INJ 40 MG/0.4 ML SYR SQ SCH (21:20)
[2023-08-03] MEDS: DEXTROSE 5% IV SCH ×2 (04:15→17:10)
[2023-08-03] MEDS: ACYCLOVIR SOD IV SCH ×2 (04:15→17:10)
[2023-08-03 06:59] LABS: Hematocrit (blood only) 26.9 % (42.0-52.0); Hemoglobin 8.3 g/dl (14.0-18.0); Mean Corpuscular Hemoglobin 29.4 pg (25.0-34.0); Mean Corpuscular Hgb Conc 30.9 g/dL (32.0-36.0); Mean Corpuscular Volume 95.4 fL (80.0-100.0); Mean Platelet Volume 9.7 fL (9.4-12.4); Nucleated RBC # (auto) 0.02 K/uL (0.00-0.12); Nucleated RBC % (auto) 0.3 %; Platelet Count 458 K/uL (130-400); RDW Coefficient of Variation 15.6 % (11.5-14.5); RDW Standard Deviation 54.2 fL (36.4-46.3); Red Blood Count 2.82 M/uL (4.70-6.10); White Blood Count 6.81 K/ul (4.8-10.8)
[2023-08-03 07:33] LABS: BUN Creatinine Ratio 50.7 (10-20); Creatinine Clr Calc Pharmacy 51.9 ml/min; Est GFR (African American) 56.8 ml/min; Potassium 4.6 mmol/L (3.5-5.1)
[2023-08-03] MEDS: carvediloL 25 MG TAB PO SCH ×2 (08:46→20:52)
[2023-08-03] MEDS: FUROSEMIDE 20 MG TAB PO SCH (08:46)
[2023-08-03] MEDS: ASPIRIN 81 MG ECTAB PO SCH (08:46)
[2023-08-03] MEDS: FINASTERIDE 5 MG TAB PO SCH (08:46)
[2023-08-03] MEDS: DULoxetine HCL 20 MG CAP PO SCH (08:46)
[2023-08-03] MEDS: GABAPENTIN 300 MG CAP PO SCH ×3 (08:46→20:52)
[2023-08-03] MEDS: POLYETHYLENE (MIRALAX) 17 GM PACK PO SCH ×3 (08:47→21:10)
[2023-08-03] MEDS: MULTIVITAMIN TAB PO SCH (08:47)
[2023-08-03] MEDS: SENNA 8.6 MG TAB PO SCH ×2 (08:47→21:12)
[2023-08-03] MEDS: lisinopril 10 MG TAB PO SCH (08:47)
[2023-08-03] MEDS: MUPIROCIN 2% OINT 22 GM TUBE EXT SCH ×3 (08:48→21:10)
[2023-08-03] MEDS: INSULIN ASPART PER UNIT CHARGE SC SCH ×4 (09:03→21:18)
[2023-08-03] MEDS: PREGABALIN 50 MG CAP PO SCH ×2 (09:04→21:19)
--- NOTE | 2023-08-03 14:17 | Hospitalist Progress Note ---
Date of Service August 03, 2023 Assessment & Plan (1) Myopathy: (2) Disseminated herpes zoster: (3) Ambulatory dysfunction: (4) Bilateral edema of lower extremity: (5) S/P insertion of intrathecal pump: (6) Myelomalacia of cervical cord: (7) Cellulitis: Plan Mr. Yepez is an 83 year old gentleman with PMHx significant for chronic pain with morphine pump, DMII and BPH admitted for placement per family, after a few weeks of generalized progressive weakness, likely attributed to worsening myopathy and weakness after simultaneous UTI and herpes zoster infection in the setting of statin, fibrate therapy and allopurinol. Patient was noted to have lower extremity edema upon admission, which improved with IV diuresis. ECHO did not revealed diastolic dysfunction, but questionable PHTN. Further diuresis limited 2/2 SRAVANI, which is improving with cessation of lasix on 07/18. Patient with elevated CK since admission, IVF given fro 48 hours and stopped on 07/23 [facility] evaluated patient given chronic persistent lower back pain with new onset severe weakness in both of his legs. This was felt to be infection affecting his underlying failed laminectomy syndrome. No surgical intervention given complex comorbidities making patient poor candidate. Broadened coverage with zosyn on 07/22 2/2 fevers and clinically poor appearance--appears much better; notably lesion on buttock concerning for shingles recurrence. Discontinued Zosyn given negative infectious work up and pursue recurrent shingles treatment with contact precautions. Shingles treatment was escalated to IV acyclovir given concern for disseminated shingles. ID consulted. Consulted neurology. Initial suggestions included consideration for stopping statin, fibrate and allopurinol as all of these may contribute to myopathy (noted elevated CK). #Disseminated Zoster New lesions on buttock c/w herpes zoster Airborne precautions Transitioned from PO valacyclovir to IV acyclovir VZV/HSV swabs of lesions obtained, pending Plan for 14 days total of IV if positive #Ambulatory Dysfunction, myopathy #thoracic myelopathy #Failed Laminectomy syndrome Freq falls happening at home, pt with bruising on chest CK elevated, downtrended CM consult for placement needs in this situation Ortho evaluated patient given left leg sensory loss and bilateral motor weakness: no surgical intervention given comorbidities stopped statin, fenofibrate and allopurinol and he is improved. Pending placement Need to continue turning patient q2h and helping to prevent breakdown on scrotum which is also swollen. Expect myopathy to be chcf, but may improve over the next several weeks. #Rhabdomyolysis *resolved -CK elevated on admission, improved with rehydration efforts and stopped statin, fibrate. #Lower extremity edema Pt with significant lower extremity edema Chest xray with noted cardiomegaly; Echo 60% EF, pHTN, LVH Swelling near resolved on exam but is present in his hands/upper extremities now, likely related to poor movement/weakness, no reported heart failure With resolution of SRAVANI, cont small oral dose of lasix with some improvement noted in UE swelling. LUE doppler negative for acute process Encourage extremity elevation and ambulation OOB to chair as tolerated. #SRAVANI *resolved #CKD stage III GFR ranges in 40s since 2019 Received IV lasix 40 07/18 #LLE swelling and erythema *improving Doppler US LLE with low suspicion for clot Completed course of antibiotics for presumptive cellulitis on admission #DMII Hgba1c of 7.4 Holding home meds Basal/Bolus insulin while hospitalized- noted that pt hypoglycemic in the AM. basal insulin held. BSG at goal, cont current regimen. #HTN chronic, stable. Cont coreg, lisinopril and lasix. #Chronic Pain Has morphine pump managed by [facility] management Consult placed to pain management for further pain management recs while in hosp Also on gabapentin, lyrica (noted both are gabapentinoids), cymbalta, tylenol for pain. Continue bowel regimen for chronic narcotic use- scheduled sennokot and me tamucil, miralax ordered as pt on a pump Pain Consult placed on 07/16-no change in infusion worsened pain from shingles, gabapentin increased to 600mg TID and added PRN tramadol #Constipation Continue bowel regimen for chronic narcotic use -scheduled sennokot and metamucil, miralax as pt on a morphine pump BM 08/03 #HLD Hold home statin and fibrate as may contribute to elevated CK and worsening myopathy. BPH/LUTS continue home meds Diet: Low sodium, DMII DVT prophylaxis: Lovenox CODE STATUS: DNR/DNI per POLST form Dispo: SNF Patient seen in collaboration with Dr. Hay. Please see addendum. Admission and Anticipated Discharge Date Admission Date: July 16, 2023 Supervising Physician Co-Signing Physician Notes I have seen and discussed the case with the collaborating PA-C. I agree with the above H&P. I have reviewed and confirmed the patients medical history, the findings on physical examination, and the patients diagnosis and treatment plan with Derek NOWAK and agree with the information documented. In short, Mr Yepez is an 83 year old man with profound myopathy and disseminated zoster, who is completing a course of IV acyclovir. Other considitions as above. No acute changes to plan. Pending placement. Subjective Seen and examined in 300-1. Having burning sensation over right side of abdomen that feels similar to other area of rash. Still experiencing chronic back pain. No other changes overnight. No F/C, lightheadedness, CP, SOB, N/V/D, +lawson. Review of Systems Review of Systems: At least ten systems reviewed and negative except as noted in the HPI. Physical Exam Physical Exam: Gen: WD/WN, NAD, resting in bed, A&O to person and place only HEENT: Normocephalic, atraumatic, conjunctivae moist, sclerae anicteric, mucous membranes moist Lung: Clear to Auscultation bilaterally, no wheezes/rales/rhonchi Heart: Regular rate, regular rhythm, no murmurs, rubs, or gallops Abdomen: Soft, + R abdominal skin TTP, ND +BS x 4 Extremities: no edema Skin: warm and dry, shingles rash down leg and on buttocks Results & Data Results & Data Vital Signs (Past 12 Hours) Vital Signs Temp Pulse Resp BP Pulse Ox O2 Del Method 08/03/23 08:40 Room Air 08/03/23 08:39 36.6 C 65 18 124/68 92 Room Air Laboratory Results Short CBC 08/03/23 Range/Units 05:31 WBC 6.81 (4.8-10.8) K/ul Hgb 8.3 L (14.0-18.0) g/dl Hct 26.9 L (42.0-52.0) % Plt Count 458 H (130-400) K/uL BMP 08/03/23 05:31 Sodium 133 L Potassium 4.6 Chloride 99 Carbon Dioxide 29 BUN 68 H Creatinine 1.34 Glucose 137 H Calcium 9.0 Diagnostic Findings Chest X-Ray 07/16/23 13:43 XR chest 1V portable CLINICAL HISTORY: weakness, fluid retention TECHNIQUE: Single frontal radiograph of the chest was obtained. Comparison: Comparison is made to chest radiograph 02/25/2022 FINDINGS: Median sternotomy wires are unchanged. Cardiomegaly is noted. The lungs are clear. No evidence of pleural effusion or pneumothorax. IMPRESSION: No acute chest disease. Cardiomegaly is noted. ACT 112: Negative or not required by law. Electronically signed by: Harrison Kent M.D. 07/16/2023 2:35 PM Venous Doppler Study 07/16/23 18:30 US venous doppler LE LT CLINICAL HISTORY: Lower extremity swelling, pain and redness TECHNIQUE: Left lower extremity real-time compression venous ultrasound with Color Doppler imaging. Utilizing real-time ultrasonic imaging multiple real time high-resolution ultrasonic images with compression and noncompression maneuvers of the deep venous system in addition to color doppler imaging were performed from the common femoral vein through the proximal calf veins. COMPARISON: Comparison is made to lower extremity ultrasound 10/22/2018 FINDINGS/IMPRESSION: Currently there is normal compressibility of the deep venous system from the common femoral vein through the proximal calf veins. The popliteal vein was not visualized, exam is limited by patient positioning and movement. ACT 112: Negative or not required by law. Electronically signed by: Harrison Kent M.D. 07/16/2023 7:38 PM Extremity Venous Study 07/19/23 14:30 ULTRASOUND LEFT UPPER EXTREMITY VENOUS CLINICAL HISTORY: Left arm swelling. COMPARISON STUDY: No priors. TECHNIQUE: Real-time, grayscale, and color Doppler sonography of the deep veins of the left upper extremity is performed. Compression and augmentation were utilized. FINDINGS: There is no sonographic evidence of deep venous thrombosis identified in the left upper extremity. The left internal jugular, axillary, and brachial veins are patent and normally compressible. Normal venous waveforms and augm entation are seen within the left subclavian vein. The cephalic and basilic veins are clear. The radial vein is patent. The ulnar vein is not well- visualized. IMPRESSION: There is no sonographic evidence of deep venous thrombosis identified in the left upper extremity. ACT 112: Negative or not required by law. Electronically signed by: Alejanrdo Sandoval M.D. 07/19/2023 11:47 PM KUB X-Ray 07/22/23 13:01 KUB HISTORY: Acute generalized abdominal pain assess for constipation, bowel impaction COMPARISON: 05/16/2022 FINDINGS: Nonobstructive bowel gas pattern. Lumbar fusion hardware with SI joint bubbles. Battery pack projects over the left abdomen. Visualized catheter appears unremarkable. Cardiomegaly with median sternotomy. Mild colonic fecal retention. No renal calculi. No ureteral calculi. No pneumoperitoneum or pneumatosis. No fracture. IMPRESSION: 1. Nonobstructive bowel gas pattern. 2. No radiographic evidence of constipation. ACT 112: Negative or not required by law. The above report was generated using voice recognition software. It may contain grammatical, syntax or spelling errors. Electronically signed by: Jae Smyth M.D. 07/22/2023 1:23 PM
[2023-08-03] MEDS: MINERAL OIL 30 ML UDC PO SCH (20:53)
[2023-08-03] MEDS: ENOXAPARIN INJ 40 MG/0.4 ML SYR SQ SCH (21:11)
[2023-08-03] MEDS: TAMSULOSIN HCL 0.4 MG CAP PO SCH (21:12)
[2023-08-04] MEDS: ACYCLOVIR SOD IV SCH (04:45)
[2023-08-04] MEDS: DEXTROSE 5% IV SCH (04:45)
[2023-08-04 06:50] LABS: Hematocrit (blood only) 27.1 % (42.0-52.0); Hemoglobin 8.7 g/dl (14.0-18.0); Mean Corpuscular Hemoglobin 30.1 pg (25.0-34.0); Mean Corpuscular Hgb Conc 32.1 g/dL (32.0-36.0); Mean Corpuscular Volume 93.8 fL (80.0-100.0); Mean Platelet Volume 9.4 fL (9.4-12.4); Platelet Count 468 K/uL (130-400); RDW Coefficient of Variation 15.6 % (11.5-14.5); Red Blood Count 2.89 M/uL (4.70-6.10); White Blood Count 6.43 K/ul (4.8-10.8)
[2023-08-04 07:10] LABS: BUN Creatinine Ratio 55.3 (10-20); Calcium 9.5 mg/dl (8.6-10.3); Creatinine Clr Calc Pharmacy 60.4 ml/min; Est GFR (Non-African American) 59.6 ml/min; Potassium 4.4 mmol/L (3.5-5.1)
[2023-08-04] MEDS: POLYETHYLENE (MIRALAX) 17 GM PACK PO SCH ×3 (08:42→21:39)
[2023-08-04] MEDS: SENNA 8.6 MG TAB PO SCH ×2 (08:42→21:39)
[2023-08-04] MEDS: GABAPENTIN 300 MG CAP PO SCH ×3 (08:44→21:36)
[2023-08-04] MEDS: carvediloL 25 MG TAB PO SCH ×2 (08:44→21:36)
[2023-08-04] MEDS: FINASTERIDE 5 MG TAB PO SCH (08:44)
[2023-08-04] MEDS: FUROSEMIDE 20 MG TAB PO SCH (08:44)
[2023-08-04] MEDS: DULoxetine HCL 20 MG CAP PO SCH (08:44)
[2023-08-04] MEDS: ASPIRIN 81 MG ECTAB PO SCH (08:44)
[2023-08-04] MEDS: MUPIROCIN 2% OINT 22 GM TUBE EXT SCH ×3 (08:44→21:38)
[2023-08-04] MEDS: MULTIVITAMIN TAB PO SCH (08:45)
[2023-08-04] MEDS: lisinopril 10 MG TAB PO SCH (08:45)
[2023-08-04] MEDS: INSULIN ASPART PER UNIT CHARGE SC SCH ×4 (08:49→21:35)
[2023-08-04] MEDS: PREGABALIN 50 MG CAP PO SCH ×2 (09:00→21:52)
[2023-08-04] MEDS ORDERED: CAPSAICIN CR 0.075% 60 GM TUBE EXT PRN (11:05)
--- NOTE | 2023-08-04 11:51 | Urology Consultation ---
<Statement entered by Blake Ocampo MD - 08/04/23 13:44> I have discussed Mr. Yepez' case with FAHAD James and agree with the above documentation. Would treat empirically for balanitis with antibiotics and antifungals. Follow culture results. Urology will follow along. -Blake Ocampo MD. Date of Consultation August 04, 2023 Assessment & Plan (1) Penile ulcer: Urology consulted for penile ulcer, Woodson catheter Patient currently on acyclovir for shingles Suspect possible balanitis of the penis/foreskin which is likely both yeast and bacterial Wound culture is pending - follow culture Recommend start Nystatin cream Recommend start antibiotics Catheter does not seem to be compressing this area Woodson appears to be chronicmaintain catheter at present Continue with routine catheter care Continue medical management per hospital medicine will follow History of Present Illness Attending Physician: Emerita Hay MD History of Present Illness This this is an 83-year-old male with past medical history of chronic pain with morphine pump, type 2 diabetes, nephrolithiasis prostate cancer status post radiation and BPH admitted for shingles, failure to thrive and lower extremity edema. Urology consulted for penile ulcer with drainage, indwelling Woodson. Patient is known to our service for history of nephrolithiasis and prostate cancer, last seen in June 2022. Chart reviewed: Patient is afebrile, hemodynamically stable. Today's labscreatinine 1.14, WBC 6.43, hemoglobin 8.7. Patient seen and examined at bedside. He is resting in bed, arouses easily to his name. Reports intermittent pain related to his shingles rash on his back and left leg. He is unable to tell me when penile ulcer began. Woodson is master ocean abhi per notes. Woodson catheter is in place draining concentrated yellow urine. Denies nausea, vomiting, fever or chills. Patient is conversant and answers questions, but unable to provide much meaningful history. Patient largely bedbound per notes. Allergies Allergy/AdvReac Type Severity Reaction Status Date / Time cyclobenzaprine AdvReac Severe Disorientation, Verified 07/16/23 16:00 confusion Home Medications Medication Instructions Recorded Confirmed Type carvedilol 25 mg tablet 25 mg PO BID 06/11/18 07/16/23 History allopurinol 300 mg tablet 300 mg PO QAM #30 tabs 11/02/18 07/16/23 Rx semaglutide 1 mg/dose (2 mg/1.5 2 mg subcut WK 01/10/19 07/16/23 History mL) subcutaneous pen injector (Ozempic) fenofibrate nanocrystallized 145 145 mg PO QPM 05/22/19 07/16/23 History mg tablet rosuvastatin 20 mg tablet 20 mg PO HS 05/22/19 07/16/23 History tamsulosin 0.4 mg capsule 0.4 mg PO HS #90 caps 06/10/20 07/16/23 Rx finasteride 5 mg tablet 5 mg PO QAM 05/07/21 07/16/23 History mineral oil 30 ml PO QPM 05/07/21 07/16/23 History multivitamin 1 tab PO QAM 05/07/21 07/16/23 History psyllium husk 3.4 gram/5.4 gram 1 tbsp PO QAM 05/07/21 07/16/23 History oral powder (Metamucil) MoRPHine PAIN PUMP 1 pump intrathecal UD #1 unit 04/27/22 07/16/23 Rx naloxone 4 mg/actuation nasal 1 spray intranasal Q3M PRN opioid 04/27/22 07/16/23 Rx spray (Narcan) overdose #2 ea dapagliflozin propanediol 5 mg 5 mg PO DAILY 05/11/22 07/16/23 History tablet (Farxiga) insulin degludec 100 unit/mL 34 unit subcut HS 05/11/22 07/16/23 History subcutaneous solution (Tresiba U-100 Insulin) acetaminophen 650 mg 650 - 1,300 mg PO Q8H 12/02/22 07/16/23 History tablet,extended release (Tylenol 8 Hour) duloxetine 20 mg capsule,delayed 20 mg PO DAILY 12/02/22 07/16/23 History release gabapentin 300 mg capsule 300 mg PO TID 12/02/22 07/16/23 History sennosides 8.6 mg tablet (Natural 8.6 mg PO DAILY 12/02/22 07/16/23 History Senna Laxative) aspirin 81 mg tablet,delayed 81 mg PO QAM 12/21/22 07/16/23 History release (Aspir-) pregabalin 50 mg capsule (Lyrica) 50 mg PO BID 07/16/23 07/16/23 History valacyclovir 1 gram tablet 1,000 mg PO TID 07/16/23 07/16/23 History (Valtrex) Patient History Medical History Myelomalacia of cervical cord Weakness Presence of intrathecal pump Obesity Frozen shoulder Postlaminectomy syndrome of lumbosacral region Myofascial pain Anemia Chronic CKD (chronic kidney disease) History of blood transfusion Post-op (2017) Carotid artery stenosis s/p left CEA (2006) History of kidney stones Spinal stenosis Diabetes mellitus, type 2 IDDM Hx of sleep apnea Refuses CPAP per records Uses oxygen 2L HS N/C Hx of atrial flutter 4:1 AV conduction s/p cardioversion x2 and subsequent successful RFA (2011) Hypertension Prostate cancer s/p radiation (2016) Dyslipidemia Gout History of atrial fibrillation s/p radiofrequency ablation (2011) Follows Dr. York ([place]) Coronary artery disease CABG x2 (2006) Follows Dr. York ([place]) Surgical History S/P insertion of intrathecal pump History of surgery Morphine epidural pump trial (03/01/22): MAC at [facility]. No issues noted per post- op anesthesia progress note. History of difficult intubation L2-S1 fusion 06/19/2014 - "poor visualization with MAC 4. Glidescope #4 utilized. Lg tongue with much soft tissue." History of cystoscopy + stent (08/06/18): MAC sedation at [facility] S/P CABG x 2 FRANCO-LAD; LAD-D1 SUB BRANCH (2006) S/P carotid endarterectomy Left (2006) H/O cardiac radiofrequency ablation atrial flutter converted to NSR History of lumbar fusion x 4 back surgeries History of open reduction and internal fixation (ORIF) procedure R/L ankles (1960s) Family History Grandmother Diabetes Other Alzheimer disease Prostate cancer Social History Smoking Status: Current some day smoker Tobacco Type: Cigars Second Hand Exposure: No; Do You Dip or Chew Tobacco: No; Hx Alcohol Use: No Hx Substance Use: No Preferred Language: Macedonian Communication Ability: Effective Communication Ability Comment: SLIGHT HEARD OF HEARING Visual Impairment: No Limitations Emergency Room Physician Required: No Beliefs That Will Affect Care: None marital status: / Current Living Situation: Alone current occupational status: retired How many Children do You have: 4 Feels Safe at Home: Yes Assistive Devices: Hospital Bed, Lift Chair, Oxygen - at Night and Scooter/Electric Scooter Review of Systems Review of Systems: All systems reviewed & are unremarkable except as noted in HPI & below Physical Exam Constitutional: Chronically ill-appearing, comfortable, no acute distress Respiratory: normal respiratory effort; no respiratory distress and no labored breathing Cardiovascular: Extremities: + edema (Bilateral lower extremities) Gastrointestinal (Abdomen): Inspection/Auscultation: abdomen normal to inspection; abdomen not distended Musculoskeletal: Head/Neck/Chest: normocephalic Neurologic: moves all extremities Psychiatric: Orientation: alert and oriented to person Genitourinary: Uncircumcised penis. Foreskin is edematous. On the dorsal and distal aspect of the foreskin there is yellow slough, malodor noted, no necrotic appearing tissue. Foreskin retracts easily and meatus is without ulceration or drainage, no significant erythema of the glans, some yeast noted. Bilateral scrotum without significant edema, nontender to palpation, no open areas or drainage appreciated. Woodson is patent and draining concentrated yellow urine, catheter does not appear to be compressing the area on the foreskin. Results & Data Vital Signs (Past 12 Hours) Vital Signs Temp Pulse Resp BP Pulse Ox O2 Del Method 08/04/23 07:37 36.7 C 72 18 143/78 H 93 Room Air 08/04/23 07:32 Room Air PG Care Time/CCT Total # of Minutes Spent Total Time Spent with Patient: Total time spent is greater than 50% in coordination of care (as documented) at patient's floor/unit and/or counseling patient: Coding Level of Care Code 92013 IN/OBS CONSULT LVL 4,60M Diagnoses Penile ulcer N48.5
--- NOTE | 2023-08-04 13:07 | Hospitalist Progress Note ---
Date of Service August 04, 2023 Assessment & Plan (1) Myopathy: (2) Disseminated herpes zoster: (3) Ambulatory dysfunction: (4) Bilateral edema of lower extremity: (5) S/P insertion of intrathecal pump: (6) Myelomalacia of cervical cord: (7) Cellulitis: Plan Mr. Yepez is an 83 year old gentleman with PMHx significant for chronic pain with morphine pump, DMII and BPH admitted for placement per family, after a few weeks of generalized progressive weakness, likely attributed to worsening myopathy and weakness after simultaneous UTI and herpes zoster infection in the setting of statin, fibrate therapy and allopurinol. Patient was noted to have lower extremity edema upon admission, which improved with IV diuresis. ECHO did not revealed diastolic dysfunction, but questionable PHTN. Further diuresis limited 2/2 SRAVANI, which is improving with cessation of lasix on 07/18. Patient with elevated CK since admission, IVF given fro 48 hours and stopped on 07/23 [facility] evaluated patient given chronic persistent lower back pain with new onset severe weakness in both of his legs. This was felt to be infection affecting his underlying failed laminectomy syndrome. No surgical intervention given complex comorbidities making patient poor candidate. Broadened coverage with zosyn on 07/22 2/2 fevers and clinically poor appearance--appears much better; notably lesion on buttock concerning for shingles recurrence. Discontinued Zosyn given negative infectious work up and pursue recurrent shingles treatment with contact precautions. Shingles treatment was escalated to IV acyclovir given concern for disseminated shingles. ID consulted. Consulted neurology. Initial suggestions included consideration for stopping statin, fibrate and allopurinol as all of these may contribute to myopathy (noted elevated CK). #Disseminated Zoster New lesions on buttock c/w herpes zoster Airborne precautions Transitioned from PO valacyclovir to IV acyclovir VZV/HSV swabs of lesions obtained, pending Plan for 14 days total of IV if positive [place] capsaicin cream for neuralgia #Penile ulcer Purulent discharge noted on ulcer of foreskin near lawson catheter Urology consulted - suspect possible balanitis of the penis/foreskin which is likely both yeast and bacterial Wound culture is pending. Recommend start Nystatin cream, abx coverage Catheter does not seem to be compressing this area, continue routine cath mgmt #Ambulatory Dysfunction, myopathy #thoracic myelopathy #Failed Laminectomy syndrome Freq falls happening at home, pt with bruising on chest CK elevated, downtrended CM consult for placement needs in this situation Ortho evaluated patient given left leg sensory loss and bilateral motor weakness: no surgical intervention given comorbidities stopped statin, fenofibrate and allopurinol and he is improved. Pending placement Need to continue turning patient q2h and helping to prevent breakdown on scrotum which is also swollen. Expect myopathy to be long term care pharmacist, but may improve over the next several weeks. #Rhabdomyolysis *resolved CK elevated on admission, improved with rehydration efforts and stopped statin, fibrate. #Lower extremity edema Pt with significant lower extremity edema Chest xray with noted cardiomegaly; Echo 60% EF, pHTN, LVH Swelling near resolved on exam but is present in his hands/upper extremities now, likely related to poor movement/weakness, no reported heart failure With resolution of SRAVANI, cont small oral dose of lasix with some improvement noted in UE swelling. LUE doppler negative for acute process Encourage extremity elevation and ambulation OOB to chair as tolerated. #SRAVANI *resolved #CKD stage III GFR ranges in 40s since 2019 Received IV lasix 40 07/18 #LLE swelling and erythema *improving Doppler US LLE with low suspicion for clot Completed course of antibiotics for presumptive cellulitis on admission #DMII Hgba1c of 7.4 Holding home meds Basal/Bolus insulin while hospitalized- noted that pt hypoglycemic in the AM. basal insulin held. BSG at goal, cont current regimen. #HTN Chronic, stable. Cont coreg, lisinopril and lasix. #Chronic Pain Has morphine pump managed by [facility] management Consult placed to pain management for further pain management recs while in hosp Also on gabapentin, lyrica (noted both are gabapentinoids), cymbalta, tylenol for pain. Continue bowel regimen for chronic narcotic use- scheduled sennokot and metamucil, miralax ordered as pt on a pump Pain Consult placed on 07/16-no change in infusion worsened pain from shingles, gabapentin increased to 600mg TID and added PRN tramadol #Constipation Continue bowel regimen for chronic narcotic use Scheduled sennokot and metamucil, miralax as pt on a morphine pump BM 08/03 #HLD Hold home statin and fibrate as may contribute to elevated CK and worsening myopathy. BPH/LUTS continue home meds Diet: Low sodium, DMII DVT prophylaxis: Lovenox CODE STATUS: DNR/DNI per POLST form Dispo: SNF Patient seen in collaboration with Dr. Hay. Please see addendum. Admission and Anticipated Discharge Date Admission Date: July 16, 2023 Supervising Physician Co-Signing Physician Notes I have seen and discussed the case with the collaborating ELIU. I agree with the above H&P. I have reviewed and confirmed the patients medical history, the findings on physical examination, and the patients diagnosis and treatment plan with Derek NOWAK and agree with the information documented. In short, Mr Yepez is an 83 year old man with profound myopathy and disseminated zoster, who is completing a course of IV acyclovir. Other considitions as above. New penile ulcer noted on wound change, appears secondary to lawson catheter. Urology consulted, augmentin and nystatin above. Pending placement. Rest of plan as above Subjective Seen and examined in 300-1. Was having wounds cleaned at the time. Still having intermittent burning sensation abdomen but it shifts from right to left side. Still experiencing chronic back pain. No other changes overnight. No F/C, lightheadedness, CP, SOB, N/V/D, +lawson. Review of Systems Review of Systems: At least ten systems reviewed and negative except as noted in the HPI. Physical Exam Physical Exam: Gen: WD/WN, NAD, on side undergoing wound cleaning, A&O to person and place only HEENT: Normocephalic, atraumatic, conjunctivae moist, sclerae anicteric, mucous membranes moist Lung: Clear to Auscultation bilaterally, no wheezes/rales/rhonchi Heart: Regular rate, regular rhythm, no murmurs, rubs, or gallops Abdomen: Soft, NT/ND +BS x 4 : Penile ulcer of foreskin with purulent, malodorous discharge, non-tender, foreskin retractable, lawson catheter in place Extremities: BLE edema improving Skin: warm and dry, resolving shingles rash on R leg, stage II sacral pressure ulcer visualized, without drainage Constitutional: WD/WN, vitals as above Respiratory: normal respiratory effort, lungs clear to auscultation Cardiovascular: RRR, no murmur, no edema Gastrointestinal (Abdomen): normal bowel sounds, soft, nontender, no hepatosplenomegaly Results & Data Results & Data Vital Signs (Past 12 Hours) Vital Signs Temp Pulse Resp BP Pulse Ox O2 Del Method 08/04/23 07:37 36.7 C 72 18 143/78 H 93 Room Air 08/04/23 07:32 Room Air Laboratory Results Short CBC 08/04/23 Range/Units 06:34 WBC 6.43 (4.8-10.8) K/ul Hgb 8.7 L (14.0-18.0) g/dl Hct 27.1 L (42.0-52.0) % Plt Count 468 H (130-400) K/uL BMP 08/04/23 06:34 Sodium 136 Potassium 4.4 Chloride 102 Carbon Dioxide 29 BUN 63 H Creatinine 1.14 Glucose 151 H Calcium 9.5 Diagnostic Findings Chest X-Ray 07/16/23 13:43 XR chest 1V portable CLINICAL HISTORY: weakness, fluid retention TECHNIQUE: Single frontal radiograph of the chest was obtained. Comparison: Comparison is made to chest radiograph 02/25/2022 FINDINGS: Median sternotomy wires are unchanged. Cardiomegaly is noted. The lungs are clear. No evidence of pleural effusion or pneumothorax. IMPRESSION: No acute chest disease. Cardiomegaly is noted. ACT 112: Negative or not required by law. Electronically signed by: Harrison Kent M.D. 07/16/2023 2:35 PM Venous Doppler Study 07/16/23 18:30 US venous doppler LE LT CLINICAL HISTORY: Lower extremity swelling, pain and redness TECHNIQUE: Left lower extremity real-time compression venous ultrasound with Color Doppler imaging. Utilizing real-time ultrasonic imaging multiple real time high-resolution ultrasonic images with compression and noncompression maneuvers of the deep venous system in addition to color doppler imaging were performed from the common femoral vein through the proximal calf veins. COMPARISON: Comparison is made to lower extremity ultrasound 10/22/2018 FINDINGS/IMPRESSION: Currently there is normal compressibility of the deep venous system from the common femoral vein through the proximal calf veins. The popliteal vein was not visualized, exam is limited by patient positioning and movement. ACT 112: Negative or not required by law. Electronically signed by: Harrison Kent M.D. 07/16/2023 7:38 PM Extremity Venous Study 07/19/23 14:30 ULTRASOUND LEFT UPPER EXTREMITY VENOUS CLINICAL HISTORY: Left arm swelling. COMPARISON STUDY: No priors. TECHNIQUE: Real-time, grayscale, and color Doppler sonography of the deep veins of the left upper extremity is performed. Compression and augmentation were utilized. FINDINGS: There is no sonographic evidence of deep venous thrombosis identified in the left upper extremity. The left internal jugular, axillary, and brachial veins are patent and normally compressible. Normal venous waveforms and augmentation are seen within the left subclavian vein. The cephalic and basilic veins are clear. The radial vein is patent. The ulnar vein is not well- visualized. IMPRESSION: There is no sonographic evidence of deep venous thrombosis identified in the left upper extremity. ACT 112: Negative or not required by law. Electronically signed by: Alejandro Sandoval M.D. 07/19/2023 11:47 PM KUB X-Ray 07/22/23 13:01 KUB HISTORY: Acute generalized abdominal pain assess for constipation, bowel impaction COMPARISON: 05/16/2022 FINDINGS: Nonobstructive bowel gas pattern. Lumbar fusion hardware with SI joint bubbles. Battery pack projects over the left abdomen. Visualized catheter appears unremarkable. Cardiomegaly with median sternotomy. Mild colonic fecal retention. No renal calculi. No ureteral calculi. No pneumoperitoneum or pneumatosis. No fracture. IMPRESSION: 1. Nonobstructive bowel gas pattern. 2. No radiographic evidence of constipation. ACT 112: Negative or not required by law. The above report was generated using voice recognition software. It may contain grammatical, syntax or spelling errors. Electronically signed by: Jae Smyth M.D. 07/22/2023 1:23 PM
[2023-08-04] MEDS: ACYCLOVIR SOD 850 MG in DEXTROSE 5% 250 ML IV SCH ×2 (14:23→21:45)
[2023-08-04] MEDS: AMOXICILLIN/CLAVULANATE 875 MG TAB PO SCH ×2 (14:23→18:10)
[2023-08-04] MEDS: MINERAL OIL 30 ML UDC PO SCH (21:37)
[2023-08-04] MEDS: NYSTATIN OINT 15 GM TUBE EXT SCH (21:38)
[2023-08-04] MEDS: TAMSULOSIN HCL 0.4 MG CAP PO SCH (21:41)
[2023-08-04] MEDS: ENOXAPARIN INJ 40 MG/0.4 ML SYR SQ SCH (21:45)
[2023-08-05] MEDS: ACYCLOVIR SOD 850 MG in DEXTROSE 5% 250 ML IV SCH ×3 (05:50→21:28)
[2023-08-05 06:10] LABS: Hemoglobin 8.1 g/dl (14.0-18.0); Mean Corpuscular Hemoglobin 29.8 pg (25.0-34.0); Mean Corpuscular Hgb Conc 32.4 g/dL (32.0-36.0); Mean Corpuscular Volume 91.9 fL (80.0-100.0); Mean Platelet Volume 9.7 fL (9.4-12.4); Nucleated RBC # (auto) 0.03 K/uL (0.00-0.12); Nucleated RBC % (auto) 0.4 %; Platelet Count 491 K/uL (130-400); RDW Coefficient of Variation 15.8 % (11.5-14.5); RDW Standard Deviation 51.8 fL (36.4-46.3); Red Blood Count 2.72 M/uL (4.70-6.10); White Blood Count 7.04 K/ul (4.8-10.8)
[2023-08-05 06:42] LABS: Calcium 9.4 mg/dl (8.6-10.3); Potassium 4.6 mmol/L (3.5-5.1)
[2023-08-05 06:48] LABS: Creatinine Clr Calc Pharmacy 56.6 ml/min; Est GFR (African American) 64.9 ml/min
--- NOTE | 2023-08-05 07:52 | Hospitalist Progress Note ---
Date of Service August 05, 2023 Assessment & Plan (1) Myopathy: (2) Disseminated herpes zoster: (3) Ambulatory dysfunction: (4) Bilateral edema of lower extremity: (5) S/P insertion of intrathecal pump: (6) Myelomalacia of cervical cord: (7) Cellulitis: Plan Mr. Yepez is an 83 year old gentleman with PMHx significant for chronic pain with morphine pump, DMII and BPH admitted for placement per family, after a few weeks of generalized progressive weakness, likely attributed to worsening myopathy and weakness after simultaneous UTI and herpes zoster infection in the setting of statin, fibrate therapy and allopurinol. Patient was noted to have lower extremity edema upon admission, which improved with IV diuresis. ECHO did not revealed diastolic dysfunction, but questionable PHTN. Further diuresis limited 2/2 SRAVANI, which is improving with cessation of lasix on 07/18. Patient with elevated CK since admission, IVF given fro 48 hours and stopped on 07/23 [facility] evaluated patient given chronic persistent lower back pain with new onset severe weakness in both of his legs. This was felt to be infection affecting his underlying failed laminectomy syndrome. No surgical intervention given complex comorbidities making patient poor candidate. Broadened coverage with zosyn on 07/22 2/2 fevers and clinically poor appearance--appears much better; notably lesion on buttock concerning for shingles recurrence. Discontinued Zosyn given negative infectious work up and pursue recurrent shingles treatment with contact precautions. Shingles treatment was escalated to IV acyclovir given concern for disseminated shingles. ID consulted. Consulted neurology. Initial suggestions included consideration for stopping statin, fibrate and allopurinol as all of these may contribute to myopathy (noted elevated CK). Patient's zoster lesions improved dramatically on exam; however, penile ulceration suspicious of necrosis from catheter. Urology assessed and recommended continuation of antibiotics for 1 week. Given the ulceration, will discontinue the lawson and transition to CIC to allow for proper healing and prevent further compression of foreskin #Disseminated Zoster New lesions on buttock c/w herpes zoster Airborne precautions Transitioned from PO valacyclovir to IV acyclovir VZV/HSV swabs of lesions obtained, pending Plan for 14 days total of IV if positive Girdler capsaicin cream for neuralgia #Penile ulcer Purulent discharge noted on ulcer of foreskin near lawson catheter Urology consulted - suspect possible balanitis of the penis/foreskin which is likely both yeast and bacterial Wound culture is pending. Recommend start Nystatin cream, abx coverage x 7 days Discontinue lawson in interim and CIC to prevent further foreskin compression/irritation #Ambulatory Dysfunction, myopathy #thoracic myelopathy #Failed Laminectomy syndrome Freq falls happening at home, pt with bruising on chest CK elevated, downtrended CM consult for placement needs in this situation Ortho evaluated patient given left leg sensory loss and bilateral motor weakness: no surgical intervention given comorbidities stopped statin, fenofibrate and allopurinol and he is improved. Pending placement Need to continue turning patient q2h and helping to prevent breakdown on scrotum which is also swollen. 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 #Rhabdomyolysis *resolved CK elevated on admission, improved with rehydration efforts and stopped statin, fibrate. #Lower extremity edema Pt with significant lower extremity edema Chest xray with noted cardiomegaly; Echo 60% EF, pHTN, LVH Swelling near resolved on exam but is present in his hands/upper extremities now, likely related to poor movement/weakness, no reported heart failure With resolution of SRAVANI, cont small oral dose of lasix with some improvement noted in UE swelling. LUE doppler negative for acute process Encourage extremity elevation and ambulation OOB to chair as tolerated. #SRAVANI *resolved #CKD stage III GFR ranges in 40s since 2019 Received IV lasix 40 07/18 #LLE swelling and erythema *improving Doppler US LLE with low suspicion for clot Completed course of antibiotics for presumptive cellulitis on admission #DMII Hgba1c of 7.4 Holding home meds Basal/Bolus insulin while hospitalized- noted that pt hypoglycemic in the AM. basal insulin held. BSG at goal, cont current regimen. #HTN Chronic, stable. Cont coreg, lisinopril and lasix. #Chronic Pain Has morphine pump managed by [facility] management Consult placed to pain management for further pain management recs while in hosp Also on gabapentin, lyrica (noted both are gabapentinoids), cymbalta, tylenol for pain. Continue bowel regimen for chronic narcotic use- scheduled sennokot and metamucil, miralax ordered as pt on a pump Pain Consult placed on 07/16-no change in infusion worsened pain from shingles, gabapentin increased to 600mg TID and added PRN tramadol #Constipation Continue bowel regimen for chronic narcotic use Scheduled sennokot and metamucil, miralax as pt on a morphine pump BM 08/03 #HLD Hold home statin and fibrate as may contribute to elevated CK and worsening myopathy. BPH/LUTS continue home meds Diet: Low sodium, DMII DVT prophylaxis: Lovenox CODE STATUS: DNR/DNI per POLST form Dispo: SNF Admission and Anticipated Discharge Date Admission Date: July 16, 2023 Physical Exam Constitutional: WD/WN, vitals as above Respiratory: normal respiratory effort, lungs clear to auscultation Cardiovascular: RRR, no murmur, no edema Gastrointestinal (Abdomen): normal bowel sounds, soft, nontender, no hepatosplenomegaly Results & Data Results & Data Vital Signs (Past 12 Hours) Vital Signs Temp Pulse Resp BP Pulse Ox O2 Del Method O2 Flow Rate 08/05/23 07:14 36.7 C 70 17 115/56 L 96 Room Air 08/04/23 21:36 Room Air, Nasal Cannula, CPAP 2 08/04/23 21:31 36.7 C 72 16 162/62 H 96 Room Air Laboratory Results Short CBC 08/05/23 Range/Units 05:29 WBC 7.04 (4.8-10.8) K/ul Hgb 8.1 L (14.0-18.0) g/dl Hct 25.0 L (42.0-52.0) % Plt Count 491 H (130-400) K/uL BMP 08/05/23 05:29 Sodium 135 L Potassium 4.6 Chloride 102 Carbon Dioxide 28 BUN 66 H Creatinine 1.20 Glucose 118 H Calcium 9.4 Medications Administered Home Medications Medication Instructions Recorded Confirmed Last Taken carvedilol 25 mg tablet 25 mg PO BID 06/11/18 07/16/23 07/16/23 allopurinol 300 mg tablet 300 mg PO QAM #30 tabs 11/02/18 07/16/23 07/16/23 semaglutide 1 mg/dose (2 mg/1.5 2 mg subcut WK 01/10/19 07/16/23 07/11/23 mL) subcutaneous pen injector (Ozempic) fenofibrate nanocrystallized 145 145 mg PO QPM 05/22/19 07/16/23 07/15/23 mg tablet rosuvastatin 20 mg tablet 20 mg PO HS 05/22/19 07/16/23 07/15/23 tamsulosin 0.4 mg capsule 0.4 mg PO HS #90 caps 06/10/20 07/16/23 07/15/23 finasteride 5 mg tablet 5 mg PO QAM 05/07/21 07/16/23 07/16/23 mineral oil 30 ml PO QPM 05/07/21 07/16/23 07/15/23 multivitamin 1 tab PO QAM 05/07/21 07/16/23 07/16/23 psyllium husk 3.4 gram/5.4 gram 1 tbsp PO QAM 05/07/21 07/16/23 07/16/23 oral powder (Metamucil) MoRPHine PAIN PUMP 1 pump intrathecal UD #1 unit 04/27/22 07/16/23 07/16/23 naloxone 4 mg/actuation nasal 1 spray intranasal Q3M PRN opioid 04/27/22 07/16/23 Unknown spray (Narcan) overdose #2 ea dapagliflozin propanediol 5 mg 5 mg PO DAILY 05/11/22 07/16/23 07/16/23 tablet (Farxiga) insulin degludec 100 unit/mL 34 unit subcut HS 05/11/22 07/16/23 07/15/23 subcutaneous solution (Tresiba U-100 Insulin) acetaminophen 650 mg 650 - 1,300 mg PO Q8H 12/02/22 07/16/23 07/16/23 tablet,extended release (Tylenol 8 Hour) duloxetine 20 mg capsule,delayed 20 mg PO DAILY 12/02/22 07/16/23 07/15/23 release gabapentin 300 mg capsule 300 mg PO TID 12/02/22 07/16/23 07/16/23 sennosides 8.6 mg tablet (Natural 8.6 mg PO DAILY 12/02/22 07/16/23 07/15/23 Senna Laxative) aspirin 81 mg tablet,delayed 81 mg PO QAM 12/21/22 07/16/23 07/16/23 release (Aspir-) pregabalin 50 mg capsule (Lyrica) 50 mg PO BID 07/16/23 07/16/23 Unknown valacyclovir 1 gram tablet 1,000 mg PO TID 07/16/23 07/16/23 Unknown (Valtrex) Active Medications Generic Name Dose Route Start Last Admin Trade Name Alexq PRN Reason Stop Dose Admin Acetaminophen 1,000 mg 07/24/23 16:27 08/01/23 13:06 Acetaminophen 500 Mg Tab PO 08/17/23 16:55 1,000 mg Q8H PRN Administration Pain/fever Amoxicillin/Clavulanate Potassium 1 tab 08/04/23 13:40 08/05/23 07:55 Amoxicillin/Clavulanate 875 Mg Tab PO 08/11/23 13:39 1 tab BIDM SARITA Administration Protocol Aspirin 81 mg 07/17/23 09:00 08/05/23 07:57 Aspirin 81 Mg Ectab PO 08/16/23 08:59 81 mg QAM SARITA Administration Carvedilol 25 mg 07/16/23 21:00 08/05/23 07:55 Carvedilol 25 Mg Tab PO 08/15/23 20:59 25 mg BID SARITA Administration Duloxetine HCl 20 mg 07/17/23 09:00 08/05/23 07:57 Duloxetine Hcl 20 Mg Cap PO 08/16/23 08:59 20 mg DAILY SARITA Administration Enoxaparin Sodium 40 mg 07/16/23 22:00 08/04/23 21:45 Enoxaparin Inj 40 Mg/0.4 Ml Syr SQ 08/15/23 21:59 40 mg Q24H SARITA Administration Finasteride 5 mg 07/17/23 09:00 08/05/23 07:56 Finasteride 5 Mg Tab PO 08/16/23 08:59 5 mg QAM SARITA Administration Furosemide 20 mg 07/27/23 09:00 08/05/23 07:56 Furosemide 20 Mg Tab PO 08/26/23 08:59 20 mg QAM SARITA Administration Gabapentin 600 mg 07/31/23 21:00 08/05/23 07:54 Gabapentin 300 Mg Cap PO 08/30/23 20:59 600 mg TID SARITA Administration Acyclovir Sodium 850 mg/ 267 mls @ 250 mls/hr 08/04/23 14:00 08/05/23 06:58 Dextrose IV 08/11/23 13:59 Infused Q8H SARITA Infusion Insulin Aspart 0 units 07/16/23 21:00 08/05/23 08:13 Insulin Aspart Per Unit Charge SC 08/15/23 20:59 21 units ACHS SARITA Administration Lisinopril 10 mg 07/17/23 17:30 08/05/23 07:56 Lisinopril 10 Mg Tab PO 08/16/23 17:29 10 mg QAM SARITA Administration Mineral Oil 30 ml 07/16/23 21:30 08/04/23 21:37 Mineral Oil 30 Ml Udc PO 08/15/23 21:29 30 ml QPM SARITA Administration Miscellaneous 15 - 30 gm 07/16/23 20:45 07/18/23 08:20 Carbohydrates For Hypoglycemia PO 08/15/23 20:44 15 gm UD PRN Administration Hypoglycemia Protocol Multivitamins 1 tab 07/17/23 09:00 08/05/23 07:56 Multivitamin Tab PO 08/16/23 08:59 1 tab QAM SARITA Administration Mupirocin 1 appln 07/23/23 09:00 08/05/23 07:58 Mupirocin 2% Oint 22 Gm Tube EXT 08/22/23 08:59 1 appln TID SARITA Administration Nystatin 1 appln 08/04/23 21:00 08/05/23 07:58 Nystatin Oint 15 Gm Tube EXT 09/03/23 20:59 1 appln BID SARITA Administration Polyethylene Glycol 17 gm 07/22/23 14:00 08/05/23 07:58 Polyethylene (Miralax) 17 Gm Pack PO 08/21/23 13:59 Not Given TID SARITA Pregabalin 50 mg 07/16/23 21:00 08/05/23 10:35 Pregabalin 50 Mg Cap PO 08/15/23 20:59 50 mg BID SARITA Administration Sennosides 8.6 mg 07/22/23 13:00 08/05/23 07:55 Senna 8.6 Mg Tab PO 08/21/23 12:59 8.6 mg BID SARITA Administration Tamsulosin HCl 0.4 mg 07/16/23 21:00 08/04/23 21:41 Tamsulosin Hcl 0.4 Mg Cap PO 08/15/23 20:59 0.4 mg HS SARITA Administration Tramadol HCl 50 - 100 mg 07/31/23 15:27 08/05/23 10:35 Tramadol Hcl 50 Mg Tablet PO 08/30/23 15:29 100 mg Q6H PRN Administration pain
[2023-08-05] MEDS: GABAPENTIN 300 MG CAP PO SCH ×3 (07:54→21:23)
[2023-08-05] MEDS: AMOXICILLIN/CLAVULANATE 875 MG TAB PO SCH ×2 (07:55→17:19)
[2023-08-05] MEDS: carvediloL 25 MG TAB PO SCH ×2 (07:55→21:22)
[2023-08-05] MEDS: SENNA 8.6 MG TAB PO SCH ×2 (07:55→21:26)
[2023-08-05] MEDS: lisinopril 10 MG TAB PO SCH (07:56)
[2023-08-05] MEDS: FUROSEMIDE 20 MG TAB PO SCH (07:56)
[2023-08-05] MEDS: MULTIVITAMIN TAB PO SCH (07:56)
[2023-08-05] MEDS: FINASTERIDE 5 MG TAB PO SCH (07:56)
[2023-08-05] MEDS: DULoxetine HCL 20 MG CAP PO SCH (07:57)
[2023-08-05] MEDS: ASPIRIN 81 MG ECTAB PO SCH (07:57)
[2023-08-05] MEDS: MUPIROCIN 2% OINT 22 GM TUBE EXT SCH ×3 (07:58→21:25)
[2023-08-05] MEDS: NYSTATIN OINT 15 GM TUBE EXT SCH ×2 (07:58→21:24)
[2023-08-05] MEDS: POLYETHYLENE (MIRALAX) 17 GM PACK PO SCH ×3 (07:58→21:25)
[2023-08-05] MEDS: INSULIN ASPART PER UNIT CHARGE SC SCH ×4 (08:13→21:15)
--- NOTE | 2023-08-05 08:22 | Urology Progress Note ---
Date of Service August 05, 2023 Assessment & Plan (1) Penile ulcer: Plan: There may be a component of balanitis to the wound -would be reasonable to continue antibiotics and antifungals for approximately 1 week. I do not appreciate any underlying fluid pockets or areas that would require drainage/surgical intervention. Given the location and appearance, I am suspicious there is a component of compression necrosis from his catheter. Would recommend making sure the catheter is not causing more pressure on this area. I would also recommend consultation from wound care nursing for potential recommendations with topical dressings. Ideally, we would like to get the catheter out as soon as possible, however with his limited mobility he may have trouble emptying his bladder. He could potentially be a candidate for CIC although I will defer to the primary team regarding this. Admission and Anticipated Discharge Date Admission Date: July 16, 2023 Subjective Reports mostly numbness in the penis/groin area, denies any pain. Reports this area feels like it is getting better and has a sense of "coolness". Not having any fevers or chills Physical Exam Physical Exam: NAD Genitourinary: Penis with orthotopic meatus, Woodson catheter in position draining concentrated urine. Significant amount of edema to the penile shaft skin and foreskin. Wound on the dorsal aspect of the penis with fibrinous slough, faint erythema. No significant underlying induration and no underlying fluid pockets appreciated. No crepitus. There is some erosion of the left lateral aspect of the urethral meatus. Results & Data Vital Signs (Past 12 Hours) Vital Signs Temp Pulse Resp BP Pulse Ox O2 Del Method O2 Flow Rate 08/05/23 07:14 36.7 C 70 17 115/56 L 96 Room Air 08/04/23 21:36 Room Air, Nasal Cannula, CPAP 2 08/04/23 21:31 36.7 C 72 16 162/62 H 96 Room Air PG Care Time/CCT Total # of Minutes Spent Total Time Spent with Patient: Total time spent is greater than 50% in coordination of care (as documented) at patient's floor/unit and/or counseling patient: Coding Level of Care Code 79690 SUB INP/OBS CARE 10/19MIN Diagnoses Penile ulcer N48.5
[2023-08-05] MEDS: PREGABALIN 50 MG CAP PO SCH ×2 (10:35→21:36)
[2023-08-05] MEDS: traMADol HCL 50 MG TABLET PO PRN (10:35)
[2023-08-05] MEDS: MINERAL OIL 30 ML UDC PO SCH (21:24)
[2023-08-05] MEDS: TAMSULOSIN HCL 0.4 MG CAP PO SCH (21:27)
[2023-08-05] MEDS: ENOXAPARIN INJ 40 MG/0.4 ML SYR SQ SCH (21:27)
[2023-08-05 22:38] LABS: Appearance Urine Clear (Clear); Bacteria Urine Automated Negative (Negative); Bilirubin Urine Negative (Negative); Blood Urine Negative (Negative); Color Urine Yellow; Glucose Urine UA Negative (Negative); Ketones Urine Negative (Negative); Leukocyte Esterase Urine Trace (Negative); Nitrite Urine Negative (Negative); Protein Urine Negative (Negative); Specific Gravity Urine 1.018 (1.000-1.030); Urobilinogen Urine Negative (Negative)
[2023-08-06] MEDS: ACYCLOVIR SOD 850 MG in DEXTROSE 5% 250 ML IV SCH ×2 (05:33→12:04)
[2023-08-06 08:43] LABS: Hematocrit (blood only) 26.3 % (42.0-52.0); Hemoglobin 8.2 g/dl (14.0-18.0); Mean Corpuscular Hemoglobin 29.7 pg (25.0-34.0); Mean Corpuscular Hgb Conc 31.2 g/dL (32.0-36.0); Mean Corpuscular Volume 95.3 fL (80.0-100.0); Mean Platelet Volume 9.4 fL (9.4-12.4); Platelet Count 434 K/uL (130-400); RDW Coefficient of Variation 16.2 % (11.5-14.5); RDW Standard Deviation 55.5 fL (36.4-46.3); Red Blood Count 2.76 M/uL (4.70-6.10); White Blood Count 6.35 K/ul (4.8-10.8)
[2023-08-06] MEDS: INSULIN ASPART PER UNIT CHARGE SC SCH ×4 (08:45→20:55)
[2023-08-06] MEDS: MULTIVITAMIN TAB PO SCH (08:53)
[2023-08-06] MEDS: carvediloL 25 MG TAB PO SCH ×2 (08:53→21:58)
[2023-08-06] MEDS: lisinopril 10 MG TAB PO SCH (08:53)
[2023-08-06] MEDS: GABAPENTIN 300 MG CAP PO SCH ×3 (08:54→21:58)
[2023-08-06] MEDS: SENNA 8.6 MG TAB PO SCH ×2 (08:54→22:00)
[2023-08-06] MEDS: ASPIRIN 81 MG ECTAB PO SCH (08:55)
[2023-08-06] MEDS: DULoxetine HCL 20 MG CAP PO SCH (08:55)
[2023-08-06] MEDS: FUROSEMIDE 20 MG TAB PO SCH (08:56)
[2023-08-06] MEDS: MUPIROCIN 2% OINT 22 GM TUBE EXT SCH ×3 (08:57→21:59)
[2023-08-06] MEDS: AMOXICILLIN/CLAVULANATE 875 MG TAB PO SCH ×2 (08:57→17:14)
[2023-08-06] MEDS: NYSTATIN OINT 15 GM TUBE EXT SCH ×2 (08:57→21:59)
[2023-08-06 08:58] LABS: BUN Creatinine Ratio 52.4 (10-20); Calcium 9.6 mg/dl (8.6-10.3); Creatinine Clr Calc Pharmacy 47.1 ml/min; Est GFR (African American) 50.8 ml/min; Est GFR (Non-African American) 43.8 ml/min; Phosphorus 3.9 mg/dl (2.5-4.9); Potassium 4.9 mmol/L (3.5-5.1)
[2023-08-06] MEDS: POLYETHYLENE (MIRALAX) 17 GM PACK PO SCH ×3 (09:02→22:09)
[2023-08-06] MEDS: FINASTERIDE 5 MG TAB PO SCH (09:02)
[2023-08-06] MEDS: PREGABALIN 50 MG CAP PO SCH ×2 (09:06→21:59)
--- NOTE | 2023-08-06 11:26 | Hospitalist Progress Note ---
Date of Service August 06, 2023 Assessment & Plan (1) Myopathy: (2) Disseminated herpes zoster: (3) Ambulatory dysfunction: (4) Bilateral edema of lower extremity: (5) S/P insertion of intrathecal pump: (6) Myelomalacia of cervical cord: (7) Cellulitis: Plan Mr. Yepez is an 83 year old gentleman with PMHx significant for chronic pain with morphine pump, DMII and BPH admitted for placement per family, after a few weeks of generalized progressive weakness, likely attributed to worsening myopathy and weakness after simultaneous UTI and herpes zoster infection in the setting of statin, fibrate therapy and allopurinol. Patient was noted to have lower extremity edema upon admission, which improved with IV diuresis. ECHO did not revealed diastolic dysfunction, but questionable PHTN. Further diuresis limited 2/2 SRAVANI, which is improving with cessation of lasix on 07/18. Patient with elevated CK since admission, IVF given fro 48 hours and stopped on 07/23 [facility] evaluated patient given chronic persistent lower back pain with new onset severe weakness in both of his legs. This was felt to be infection affecting his underlying failed laminectomy syndrome. No surgical intervention given complex comorbidities making patient poor candidate. Broadened coverage with zosyn on 07/22 2/2 fevers and clinically poor appearance--appears much better; notably lesion on buttock concerning for shingles recurrence. Discontinued Zosyn given negative infectious work up and pursue recurrent shingles treatment with contact precautions. Shingles treatment was escalated to IV acyclovir given concern for disseminated shingles. ID consulted. Consulted neurology. Initial suggestions included consideration for stopping statin, fibrate and allopurinol as all of these may contribute to myopathy (noted elevated CK). Patient's zoster lesions improved dramatically on exam; however, penile ulceration suspicious of necrosis from catheter. Urology assessed and recommended continuation of antibiotics for 1 week. Given the ulceration, will discontinue the lawson and transition to CIC to allow for proper healing and prevent further compression of foreskin. #Disseminated Zoster New lesions on buttock c/w herpes zoster Airborne precautions Transitioned from PO valacyclovir to IV acyclovir VZV/HSV swabs of lesions obtained, pending Plan for 14 days total of IV if positive Ethel capsaicin cream for neuralgia #Penile ulcer Purulent discharge noted on ulcer of foreskin near lawson catheter Urology consulted - suspect possible balanitis of the penis/foreskin which is likely both yeast and bacterial Wound culture is pending. Recommend start Nystatin cream, abx coverage x 7 days Continue CIC to prevent further foreskin compression/irritation #Ambulatory Dysfunction, myopathy #thoracic myelopathy #Failed Laminectomy syndrome Freq falls happening at home, pt with bruising on chest CK elevated, downtrended CM consult for placement needs in this situation Ortho evaluated patient given left leg sensory loss and bilateral motor weakness: no surgical intervention given comorbidities stopped statin, fenofibrate and allopurinol and he is improved. Pending placement Need to continue turning patient q2h and helping to prevent breakdown on scrotum which is also swollen. 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 #Rhabdomyolysis *resolved CK elevated on admission, improved with rehydration efforts and stopped statin, fibrate. #Lower extremity edema Pt with significant lower extremity edema Chest xray with noted cardiomegaly; Echo 60% EF, pHTN, LVH Swelling near resolved on exam but is present in his hands/upper extremities now, likely related to poor movement/weakness, no reported heart failure With resolution of SRAVANI, cont small oral dose of lasix with some improvement noted in UE swelling. LUE doppler negative for acute process Encourage extremity elevation and ambulation OOB to chair as tolerated. Lasix 20mg daily #SRAVANI *resolved #CKD stage III GFR ranges in 40s since 2019 #LLE swelling and erythema *improving Doppler US LLE with low suspicion for clot Completed course of antibiotics for presumptive cellulitis on admission #DMII Hgba1c of 7.4 Holding home meds Basal/Bolus insulin while hospitalized- noted that pt hypoglycemic in the AM. basal insulin held. BSG at goal, cont current regimen. #HTN Chronic, stable. Cont coreg, lisinopril and lasix. #Chronic Pain Has morphine pump managed by [facility] Pain management Consult placed to pain management for further pain management recs while in hosp Also on gabapentin, lyrica (noted both are gabapentinoids), cymbalta, tylenol for pain. Continue bowel regimen for chronic narcotic use- scheduled sennokot and metamucil, miralax ordered as pt on a pump Pain Consult placed on 07/16-no change in infusion worsened pain from shingles, gabapentin increased to 600mg TID and added PRN tramadol #Constipation Continue bowel regimen for chronic narcotic use Scheduled sennokot and metamucil, miralax as pt on a morphine pump BM 08/03 #HLD Hold home statin and fibrate as may contribute to elevated CK and worsening myopathy. BPH/LUTS continue home meds Diet: Low sodium, DMII DVT prophylaxis: Lovenox CODE STATUS: DNR/DNI per POLST form Dispo: SNF Admission and Anticipated Discharge Date Admission Date: July 16, 2023 Subjective NAEO Review of Systems Review of Systems: All systems reviewed & are unremarkable except as noted in Subjective Physical Exam Constitutional: WD/WN, vitals as above Respiratory: normal respiratory effort, lungs clear to auscultation Cardiovascular: RRR, no murmur, no edema Results & Data Results & Data Vital Signs (Past 12 Hours) Vital Signs Temp Pulse Resp BP Pulse Ox O2 Del Method 08/06/23 11:08 Room Air 08/06/23 07:56 36.6 C 67 16 143/63 H 96 Room Air
[2023-08-06] MEDS ORDERED: LACTATED RINGER'S 250 ML IV ONE (11:29)
[2023-08-06] MEDS: TAMSULOSIN HCL 0.4 MG CAP PO SCH (21:59)
[2023-08-06] MEDS: MINERAL OIL 30 ML UDC PO SCH (21:59)
[2023-08-06] MEDS: ENOXAPARIN INJ 40 MG/0.4 ML SYR SQ SCH (22:01)
[2023-08-07] MEDS: ACYCLOVIR SOD 850 MG in DEXTROSE 5% 250 ML IV SCH ×3 (00:50→23:20)
[2023-08-07 06:27] LABS: Hematocrit (blood only) 26.3 % (42.0-52.0); Hemoglobin 8.4 g/dl (14.0-18.0); Mean Corpuscular Hemoglobin 29.8 pg (25.0-34.0); Mean Corpuscular Hgb Conc 31.9 g/dL (32.0-36.0); Mean Corpuscular Volume 93.3 fL (80.0-100.0); Mean Platelet Volume 9.6 fL (9.4-12.4); Platelet Count 460 K/uL (130-400); RDW Coefficient of Variation 15.7 % (11.5-14.5); RDW Standard Deviation 53.3 fL (36.4-46.3); Red Blood Count 2.82 M/uL (4.70-6.10)
[2023-08-07 07:10] LABS: BUN Creatinine Ratio 58.3 (10-20); Calcium 9.3 mg/dl (8.6-10.3); Est GFR (African American) 60.6 ml/min; Est GFR (Non-African American) 52.3 ml/min; Phosphorus 3.7 mg/dl (2.5-4.9)
--- NOTE | 2023-08-07 07:51 | Hospitalist Progress Note ---
Date of Service August 07, 2023 Assessment & Plan (1) Myopathy: (2) Disseminated herpes zoster: (3) Ambulatory dysfunction: (4) Bilateral edema of lower extremity: (5) S/P insertion of intrathecal pump: (6) Myelomalacia of cervical cord: (7) Cellulitis: Plan Mr. Yepez is an 83 year old gentleman with PMHx significant for chronic pain with morphine pump, DMII and BPH admitted for placement per family, after a few weeks of generalized progressive weakness, likely attributed to worsening myopathy and weakness after simultaneous UTI and herpes zoster infection in the setting of statin, fibrate therapy and allopurinol. Patient was noted to have lower extremity edema upon admission, which improved with IV diuresis. ECHO did not revealed diastolic dysfunction, but questionable PHTN. Further diuresis limited 2/2 SRAVANI, which is improving with cessation of lasix on 07/18. Patient with elevated CK since admission, IVF given fro 48 hours and stopped on 07/23 [facility] evaluated patient given chronic persistent lower back pain with new onset severe weakness in both of his legs. This was felt to be infection affecting his underlying failed laminectomy syndrome. No surgical intervention given complex comorbidities making patient poor candidate. Broadened coverage with zosyn on 07/22 2/2 fevers and clinically poor appearance--appears much better; notably lesion on buttock concerning for shingles recurrence. Discontinued Zosyn given negative infectious work up and pursue recurrent shingles treatment with contact precautions. Shingles treatment was escalated to IV acyclovir given concern for disseminated shingles. ID consulted. Consulted neurology. Initial suggestions included consideration for stopping statin, fibrate and allopurinol as all of these may contribute to myopathy (noted elevated CK). Patient's zoster lesions improved dramatically on exam; however, penile ulceration suspicious of necrosis from catheter. Urology assessed and recommended continuation of antibiotics for 1 week. Given the ulceration, the lawson wasl discontinued, ongoing CIC to allow for proper healing and prevent further compression of foreskin. Penile edema has improved notably. #Disseminated Zoster New lesions on buttock c/w herpes zoster Airborne precautions VZV/HSV swabs of lesions obtained, pending Plan for 14 days total of IV if positive EOT 08/10 Anabel capsaicin cream for neuralgia #Penile ulcer *improving Purulent discharge noted on ulcer of foreskin near lawson catheter Urology consulted - suspect possible balanitis of the penis/foreskin which is likely both yeast and bacterial Wound culture is pending. Recommend start Nystatin cream/muprocin, abx coverage x 7 days Continue CIC to prevent further foreskin compression/irritation #Ambulatory Dysfunction, myopathy #thoracic myelopathy #Failed Laminectomy syndrome Freq falls happening at home, pt with bruising on chest CK elevated, downtrended CM consult for placement needs in this situation Ortho evaluated patient given left leg sensory loss and bilateral motor weakness: no surgical intervention given comorbidities stopped statin, fenofibrate and allopurinol and he is improved. Pending placement Need to continue turning patient q2h and helping to prevent breakdown on scrotum which is also swollen. 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 #Rhabdomyolysis *resolved CK elevated on admission, improved with rehydration efforts and stopped statin, fibrate. #Lower extremity edema Pt with significant lower extremity edema Chest xray with noted cardiomegaly; Echo 60% EF, pHTN, LVH Swelling near resolved on exam but is present in his hands/upper extremities now, likely related to poor movement/weakness, no reported heart failure With resolution of SRAVANI, cont small oral dose of lasix with some improvement noted in UE swelling. LUE doppler negative for acute process Encourage extremity elevation and ambulation OOB to chair as tolerated. #SRAVANI *resolved #CKD stage III GFR ranges in 40s since 2019 Held Lasix 20mg daily given SRAVANI and no notably improvement in edema, just elev ate BUN/Cr ratio and hyponatremia #LLE swelling and erythema *improving Doppler US LLE with low suspicion for clot Completed course of antibiotics for presumptive cellulitis on admission #DMII Hgba1c of 7.4 Holding home meds Basal/Bolus insulin while hospitalized- noted that pt hypoglycemic in the AM. basal insulin held. BSG at goal, cont current regimen. #HTN Chronic, stable. Cont coreg, lisinopril and lasix. #Chronic Pain Has morphine pump managed by [facility] Consult placed to pain management for further pain management recs while in hosp Also on gabapentin, lyrica (noted both are gabapentinoids), cymbalta, tylenol for pain. Continue bowel regimen for chronic narcotic use- scheduled sennokot and metamucil, miralax ordered as pt on a pump Pain Consult placed on 07/16-no change in infusion worsened pain from shingles, gabapentin increased to 600mg TID and added PRN tramadol #Constipation Continue bowel regimen for chronic narcotic use Scheduled sennokot and metamucil, miralax as pt on a morphine pump BM 08/03 #HLD Hold home statin and fibrate as may contribute to elevated CK and worsening myopathy. BPH/LUTS continue home meds Diet: Low sodium, DMII DVT prophylaxis: Lovenox CODE STATUS: DNR/DNI per POLST form Dispo: SNF Admission and Anticipated Discharge Date Admission Date: July 16, 2023 Subjective NAEO Reports feeling happy with the improved movement of right arm, though left upper extremity is limited Patient denies any acute concerns this am, pleased to hear improvement in penile ulceration Review of Systems Review of Systems: All systems reviewed & are unremarkable except as noted in Subjective Physical Exam Constitutional: WD/WN, vitals as above Respiratory: normal respiratory effort, lungs clear to auscultation Cardiovascular: RRR, no murmur, no edema Gastrointestinal (Abdomen): normal bowel sounds, soft, nontender, no hepatosplenomegaly Skin: significant reduction in malodorous discharge around penis, shaft/foreskin edema tremendously improved, decreased sloughing Results & Data Results & Data Vital Signs (Past 12 Hours) Vital Signs O2 Del Method O2 Flow Rate 08/06/23 21:58 Room Air, Nasal Cannula, CPAP 2 Laboratory Results Short CBC 08/07/23 Range/Units 05:43 WBC 6.60 (4.8-10.8) K/ul Hgb 8.4 L (14.0-18.0) g/dl Hct 26.3 L (42.0-52.0) % Plt Count 460 H (130-400) K/uL BMP 08/07/23 05:43 Sodium 133 L Potassium 5.0 Chloride 98 Carbon Dioxide 28 BUN 74 H Creatinine 1.27 Glucose 137 H Calcium 9.3 Medications Administered Home Medications Medication Instructions Recorded Confirmed Last Taken carvedilol 25 mg tablet 25 mg PO BID 06/11/18 07/16/23 07/16/23 allopurinol 300 mg tablet 300 mg PO QAM #30 tabs 11/02/18 07/16/23 07/16/23 semaglutide 1 mg/dose (2 mg/1.5 2 mg subcut WK 01/10/19 07/16/23 07/11/23 mL) subcutaneous pen injector (LendPro) fenofibrate nanocrystallized 145 145 mg PO QPM 05/22/19 07/16/23 07/15/23 mg tablet rosuvastatin 20 mg tablet 20 mg PO HS 05/22/19 07/16/23 07/15/23 tamsulosin 0.4 mg capsule 0.4 mg PO HS #90 caps 06/10/20 07/16/23 07/15/23 finasteride 5 mg tablet 5 mg PO QAM 05/07/21 07/16/23 07/16/23 mineral oil 30 ml PO QPM 05/07/21 07/16/23 07/15/23 multivitamin 1 tab PO QAM 05/07/21 07/16/23 07/16/23 psyllium husk 3.4 gram/5.4 gram 1 tbsp PO QAM 05/07/21 07/16/23 07/16/23 oral powder (Metamucil) MoRPHine PAIN PUMP 1 pump intrathecal UD #1 unit 04/27/22 07/16/23 07/16/23 naloxone 4 mg/actuation nasal 1 spray intranasal Q3M PRN opioid 04/27/22 07/16/23 Unknown spray (Narcan) overdose #2 ea dapagliflozin propanediol 5 mg 5 mg PO DAILY 05/11/22 07/16/23 07/16/23 tablet (Farxiga) insulin degludec 100 unit/mL 34 unit subcut HS 05/11/22 07/16/23 07/15/23 subcutaneous solution (Tresiba U-100 Insulin) acetaminophen 650 mg 650 - 1,300 mg PO Q8H 12/02/22 07/16/23 07/16/23 tablet,extended release (Tylenol 8 Hour) duloxetine 20 mg capsule,delayed 20 mg PO DAILY 12/02/22 07/16/23 07/15/23 release gabapentin 300 mg capsule 300 mg PO TID 12/02/22 07/16/23 07/16/23 sennosides 8.6 mg tablet (Natural 8.6 mg PO DAILY 12/02/22 07/16/23 07/15/23 Senna Laxative) aspirin 81 mg tablet,delayed 81 mg PO QAM 12/21/22 07/16/23 07/16/23 release (Aspir-) pregabalin 50 mg capsule (Lyrica) 50 mg PO BID 07/16/23 07/16/23 Unknown valacyclovir 1 gram tablet 1,000 mg PO TID 07/16/23 07/16/23 Unknown (Valtrex) Active Medications Generic Name Dose Route Start Last Admin Trade Name Freq PRN Reason Stop Dose Admin Acetaminophen 1,000 mg 07/24/23 16:27 08/01/23 13:06 Acetaminophen 500 Mg Tab PO 08/17/23 16:55 1,000 mg Q8H PRN Administration Pain/fever Amoxicillin/Clavulanate Potassium 1 tab 08/04/23 13:40 08/07/23 08:40 Amoxicillin/Clavulanate 875 Mg Tab PO 08/11/23 13:39 1 tab BIDM SARITA Administration Protocol Aspirin 81 mg 07/17/23 09:00 08/07/23 08:39 Aspirin 81 Mg Ectab PO 08/16/23 08:59 81 mg QAM SARITA Administration Carvedilol 25 mg 07/16/23 21:00 08/07/23 08:39 Carvedilol 25 Mg Tab PO 08/15/23 20:59 25 mg BID SARITA Administration Duloxetine HCl 20 mg 07/17/23 09:00 08/07/23 08:40 Duloxetine Hcl 20 Mg Cap PO 08/16/23 08:59 20 mg DAILY SARITA Administration Enoxaparin Sodium 40 mg 07/16/23 22:00 08/06/23 22:01 Enoxaparin Inj 40 Mg/0.4 Ml Syr SQ 08/15/23 21:59 40 mg Q24H SARITA Administration Finasteride 5 mg 07/17/23 09:00 08/07/23 08:41 Finasteride 5 Mg Tab PO 08/16/23 08:59 5 mg QAM SARITA Administration Furosemide 20 mg 07/27/23 09:00 08/06/23 08:56 Furosemide 20 Mg Tab PO 08/26/23 08:59 20 mg QAM SARITA Administration Gabapentin 600 mg 07/31/23 21:00 08/07/23 08:40 Gabapentin 300 Mg Cap PO 08/30/23 20:59 600 mg TID SARITA Administration Acyclovir Sodium 850 mg/ 267 mls @ 250 mls/hr 08/07/23 00:00 08/07/23 01:58 Dextrose IV 08/10/23 00:00 Infused Q12H SARITA Infusion Insulin Aspart 0 units 07/16/23 21:00 08/07/23 08:29 Insulin Aspart Per Unit Charge SC 08/15/23 20:59 12 units ACHS SARITA Administration Lisinopril 10 mg 07/17/23 17:30 08/07/23 08:41 Lisinopril 10 Mg Tab PO 08/16/23 17:29 10 mg QAM SARITA Administration Mineral Oil 30 ml 07/16/23 21:30 08/06/23 21:59 Mineral Oil 30 Ml Udc PO 08/15/23 21:29 30 ml QPM SARITA Administration Miscellaneous 15 - 30 gm 07/16/23 20:45 07/18/23 08:20 Carbohydrates For Hypoglycemia PO 08/15/23 20:44 15 gm UD PRN Administration Hypoglycemia Protocol Multivitamins 1 tab 07/17/23 09:00 08/07/23 08:41 Multivitamin Tab PO 08/16/23 08:59 1 tab QAM SARITA Administration Mupirocin 1 appln 07/23/23 09:00 08/07/23 08:42 Mupirocin 2% Oint 22 Gm Tube EXT 08/22/23 08:59 1 appln TID SARITA Administration Nystatin 1 appln 08/04/23 21:00 08/07/23 08:42 Nystatin Oint 15 Gm Tube EXT 09/03/23 20:59 1 appln BID SARITA Administration Polyethylene Glycol 17 gm 07/22/23 14:00 08/07/23 08:42 Polyethylene (Miralax) 17 Gm Pack PO 08/21/23 13:59 17 gm TID SARITA Administration Pregabalin 50 mg 07/16/23 21:00 08/07/23 08:39 Pregabalin 50 Mg Cap PO 08/15/23 20:59 50 mg BID SARITA Administration Sennosides 8.6 mg 07/22/23 13:00 08/07/23 08:41 Senna 8.6 Mg Tab PO 08/21/23 12:59 8.6 mg BID SARITA Administration Tamsulosin HCl 0.4 mg 07/16/23 21:00 08/06/23 21:59 Tamsulosin Hcl 0.4 Mg Cap PO 08/15/23 20:59 0.4 mg HS SARITA Administration Tramadol HCl 50 - 100 mg 07/31/23 15:27 08/05/23 10:35 Tramadol Hcl 50 Mg Tablet PO 08/30/23 15:29 100 mg Q6H PRN Administration pain
[2023-08-07] MEDS: INSULIN ASPART PER UNIT CHARGE SC SCH ×4 (08:29→21:29)
[2023-08-07] MEDS: carvediloL 25 MG TAB PO SCH ×2 (08:39→21:18)
[2023-08-07] MEDS: ASPIRIN 81 MG ECTAB PO SCH (08:39)
[2023-08-07] MEDS: PREGABALIN 50 MG CAP PO SCH ×2 (08:39→21:18)
[2023-08-07] MEDS: DULoxetine HCL 20 MG CAP PO SCH (08:40)
[2023-08-07] MEDS: GABAPENTIN 300 MG CAP PO SCH ×3 (08:40→21:18)
[2023-08-07] MEDS: AMOXICILLIN/CLAVULANATE 875 MG TAB PO SCH ×2 (08:40→16:54)
[2023-08-07] MEDS: FINASTERIDE 5 MG TAB PO SCH (08:41)
[2023-08-07] MEDS: lisinopril 10 MG TAB PO SCH (08:41)
[2023-08-07] MEDS: SENNA 8.6 MG TAB PO SCH ×2 (08:41→21:18)
[2023-08-07] MEDS: MULTIVITAMIN TAB PO SCH (08:41)
[2023-08-07] MEDS: MUPIROCIN 2% OINT 22 GM TUBE EXT SCH ×3 (08:42→21:19)
[2023-08-07] MEDS: POLYETHYLENE (MIRALAX) 17 GM PACK PO SCH ×3 (08:42→23:21)
[2023-08-07] MEDS: NYSTATIN OINT 15 GM TUBE EXT SCH ×2 (08:42→21:19)
--- NOTE | 2023-08-07 13:03 | Urology Progress Note ---
Date of Service August 07, 2023 Assessment & Plan (1) Penile ulcer: Plan: Urology consulted for penile ulcer, Woodson catheter There may be a component of balanitis to the wound -would be reasonable to continue antibiotics and antifungals for approximately 1 week. Woodson catheter removed yesterday to allow for proper healing and prevent further compression. Patient is a straight cath Q6 hours. Patient feels penile edema has improved significantly since catheter removal. Continue to monitor. No underlying fluid pockets or areas that would require drainage/surgical intervention appreciated on exam. Urology will follow peripherally. Please contact us with any further questions, concerns, or changes in patient status. Admission and Anticipated Discharge Date Admission Date: July 16, 2023 Subjective Patient examined at bedside this AM. Awake, resting in bed on arrival. No acute distress. Woodson catheter removed yesterday to allow for proper healing and prevent further compression. Patient is a straight cath Q6 hours. Patient feels penile edema has improved significantly since catheter removal. Review of Systems Constitutional: as per Subjective / HPI Genitourinary: + as per Subjective / HPI Physical Exam Constitutional: Chronically ill-appearing, comfortable, no acute distress Respiratory: no respiratory distress and no labored breathing Psychiatric: Orientation: alert and oriented to person Genitourinary: Edema to the penile shaft skin and foreskin. No significant underlying induration and no underlying fluid pockets appreciated. No crepitus. There is some erosion of the left lateral aspect of the urethral meatus. On the dorsal and distal aspect of the foreskin there is yellow slough. Bilateral scrotum without significant edema, nontender to palpation, no open areas or drainage appreciated. Results & Data Vital Signs (Past 12 Hours) Vital Signs Temp Pulse Resp BP Pulse Ox O2 Del Method 08/07/23 09:59 Room Air 08/07/23 08:12 36.6 C 65 16 123/67 98 Room Air PG Care Time/CCT Total # of Minutes Spent Total Time Spent with Patient: Total time spent is greater than 50% in coordination of care (as documented) at patient's floor/unit and/or counseling patient: Coding Level of Care Code 27363 SUB INP/OBS CARE 10/19MIN Diagnoses Penile ulcer N48.5
[2023-08-07] MEDS: TAMSULOSIN HCL 0.4 MG CAP PO SCH (21:18)
[2023-08-07] MEDS: MINERAL OIL 30 ML UDC PO SCH (21:18)
[2023-08-07] MEDS: ENOXAPARIN INJ 40 MG/0.4 ML SYR SQ SCH (21:18)
[2023-08-08 06:49] LABS: Hematocrit (blood only) 25.7 % (42.0-52.0); Hemoglobin 8.2 g/dl (14.0-18.0); Mean Corpuscular Hemoglobin 29.8 pg (25.0-34.0); Mean Corpuscular Hgb Conc 31.9 g/dL (32.0-36.0); Mean Corpuscular Volume 93.5 fL (80.0-100.0); Mean Platelet Volume 9.5 fL (9.4-12.4); Nucleated RBC # (auto) 0.02 K/uL (0.00-0.12); Nucleated RBC % (auto) 0.4 %; Platelet Count 437 K/uL (130-400); RDW Coefficient of Variation 15.9 % (11.5-14.5); RDW Standard Deviation 53.5 fL (36.4-46.3); Red Blood Count 2.75 M/uL (4.70-6.10); White Blood Count 5.57 K/ul (4.8-10.8)
[2023-08-08 07:10] LABS: BUN Creatinine Ratio 67.3 (10-20); Calcium 9.7 mg/dl (8.6-10.3); Creatinine Clr Calc Pharmacy 63.4 ml/min; Est GFR (African American) 72.1 ml/min; Est GFR (Non-African American) 62.2 ml/min; Magnesium 2.1 mg/dl (1.7-2.4); Phosphorus 3.3 mg/dl (2.5-4.9); Potassium 4.6 mmol/L (3.5-5.1)
[2023-08-08] MEDS: PREGABALIN 50 MG CAP PO SCH ×2 (08:16→21:44)
[2023-08-08] MEDS: FINASTERIDE 5 MG TAB PO SCH (08:16)
[2023-08-08] MEDS: carvediloL 25 MG TAB PO SCH ×2 (08:16→21:45)
[2023-08-08] MEDS: SENNA 8.6 MG TAB PO SCH ×2 (08:16→21:45)
[2023-08-08] MEDS: GABAPENTIN 300 MG CAP PO SCH ×3 (08:16→21:44)
[2023-08-08] MEDS: DULoxetine HCL 20 MG CAP PO SCH (08:16)
[2023-08-08] MEDS: MUPIROCIN 2% OINT 22 GM TUBE EXT SCH ×3 (08:16→21:46)
[2023-08-08] MEDS: MULTIVITAMIN TAB PO SCH (08:16)
[2023-08-08] MEDS: NYSTATIN OINT 15 GM TUBE EXT SCH ×2 (08:16→21:45)
[2023-08-08] MEDS: ASPIRIN 81 MG ECTAB PO SCH (08:16)
[2023-08-08] MEDS: lisinopril 10 MG TAB PO SCH (08:16)
[2023-08-08] MEDS: INSULIN ASPART PER UNIT CHARGE SC SCH ×4 (08:22→21:33)
[2023-08-08] MEDS: AMOXICILLIN/CLAVULANATE 875 MG TAB PO SCH (08:29)
[2023-08-08] MEDS: POLYETHYLENE (MIRALAX) 17 GM PACK PO SCH ×3 (08:30→21:44)
[2023-08-08] MEDS: ACETAMINOPHEN 500 MG TAB PO PRN (11:51)
[2023-08-08] MEDS: ACYCLOVIR SOD 850 MG in DEXTROSE 5% 250 ML IV SCH ×2 (11:53→21:43)
[2023-08-08] MEDS ORDERED: cephALEXin 500 MG CAP PO SCH (13:30)
[2023-08-08] MEDS: DOXYCYCLINE HYCLATE 100 MG CAP PO SCH ×2 (14:36→21:45)
--- NOTE | 2023-08-08 16:30 | Hospitalist Progress Note ---
Date of Service August 08, 2023 Assessment & Plan (1) Myopathy: (2) Disseminated herpes zoster: (3) Ambulatory dysfunction: (4) Bilateral edema of lower extremity: (5) S/P insertion of intrathecal pump: (6) Myelomalacia of cervical cord: (7) Cellulitis: Plan Mr. Yepez is an 83 year old gentleman with PMHx significant for chronic pain with morphine pump, DMII and BPH admitted for placement per family, after a few weeks of generalized progressive weakness, likely attributed to worsening myopathy and weakness after simultaneous UTI and herpes zoster infection in the setting of statin, fibrate therapy and allopurinol. Patient was noted to have lower extremity edema upon admission, which improved with IV diuresis. ECHO did not revealed diastolic dysfunction, but questionable PHTN. Further diuresis limited 2/2 SRAVANI, which is improving with cessation of lasix on 07/18. Patient with elevated CK since admission, IVF given fro 48 hours and stopped on 07/23 [facility] evaluated patient given chronic persistent lower back pain with new onset severe weakness in both of his legs. This was felt to be infection affecting his underlying failed laminectomy syndrome. No surgical intervention given complex comorbidities making patient poor candidate. Broadened coverage with zosyn on 07/22 2/2 fevers and clinically poor appearance--appears much better; notably lesion on buttock concerning for shingles recurrence. Discontinued Zosyn given negative infectious work up and pursue recurrent shingles treatment with contact precautions. Shingles treatment was escalated to IV acyclovir given concern for disseminated shingles. ID consulted. Consulted neurology. Initial suggestions included consideration for stopping statin, fibrate and allopurinol as all of these may contribute to myopathy (noted elevated CK). Patient's zoster lesions improved dramatically on exam; however, penile ulceration suspicious of necrosis from catheter. Urology assessed and recommended continuation of antibiotics for 1 week. Given the ulceration, the lawson was discontinued, ongoing CIC to allow for proper healing and prevent further compression of foreskin. Penile edema has improved notably. Cultures of penis resultued +MRSA, therefore augmentin transitioned to doxy to ensure staph coverage. #Disseminated Zoster New lesions on buttock c/w herpes zoster Airborne precautions VZV/HSV swabs of lesions obtained, pending since 08/03 Plan for 14 days total of IV if positive EOT 08/10 [place] capsaicin cream for neuralgia #Penile ulcer *improving Purulent discharge noted on ulcer of foreskin near lawson catheter Urology consulted - suspect possible balanitis of the penis/foreskin which is likely both yeast and bacterial Wound culture MRSA--transitioned to doxy from augmentin, EOT 08/15, mupirocin topically Continue CIC to prevent further foreskin compression/irritation q6h #Ambulatory Dysfunction, myopathy #thoracic myelopathy #Failed Laminectomy syndrome Freq falls happening at home, pt with bruising on chest CK elevated, downtrended CM consult for placement needs in this situation Ortho evaluated patient given left leg sensory loss and bilateral motor weakness: no surgical intervention given comorbidities stopped statin, fenofibrate and allopurinol and he is improved. Pending placement Need to continue turning patient q2h and helping to prevent breakdown on scrotum which is also swollen. Expect myopathy to be manager intermediate, but may improve over the next several weeks. #Rhabdomyolysis *resolved CK elevated on admission, improved with rehydration efforts and stopped statin, fibrate. #Lower extremity edema Pt with significant lower extremity edema Chest xray with noted cardiomegaly; Echo 60% EF, pHTN, LVH Swelling near resolved on exam but is present in his hands/upper extremities now, likely related to poor movement/weakness, no reported heart failure With resolution of SRAVANI, cont small oral dose of lasix with some improvement noted in UE swelling. LUE doppler negative for acute process Encourage extremity elevation and ambulation OOB to chair as tolerated. #SRAVANI *resolved #CKD stage III GFR ranges in 40s since 2019 Held Lasix 20mg daily given SRAVANI and no notably improvement in edema, just elevate BUN/Cr ratio and hyponatremia #LLE swelling and erythema *improving Doppler US LLE with low suspicion for clot Completed course of antibiotics for presumptive cellulitis on admission #DMII Hgba1c of 7.4 Holding home meds Basal/Bolus insulin while hospitalized- noted that pt hypoglycemic in the AM. basal insulin held. BSG at goal, cont current regimen. #HTN Chronic, stable. Cont coreg, lisinopril and lasix. #Chronic Pain Has morphine pump managed by [facility] Consult placed to pain management for further pain management recs while in hosp Also on gabapentin, lyrica (noted both are gabapentinoids), cymbalta, tylenol for pain. Continue bowel regimen for chronic narcotic use- scheduled sennokot and metamucil, miralax ordered as pt on a pump Pain Consult placed on 07/16-no change in infusion worsened pain from shingles, gabapentin increased to 600mg TID and added PRN tramadol Will need pain follow upon discharge to have pump filled by the end of the month, if not discharged prior will need pain plan in place #Constipation Continue bowel regimen for chronic narcotic use Scheduled sennokot and metamucil, miralax as pt on a morphine pump BM 08/03 #HLD Hold home statin and fibrate as may contribute to elevated CK and worsening myopathy. BPH/LUTS continue home meds Diet: Low sodium, DMII DVT prophylaxis: Lovenox CODE STATUS: DNR/DNI per POLST form Dispo: SNF Admission and Anticipated Discharge Date Admission Date: July 16, 2023 Subjective NAEO Moving right arm robustly, left arm requires more focus and limited Review of Systems Review of Systems: All systems reviewed & are unremarkable except as noted in Subjective Physical Exam Respiratory: normal respiratory effort, lungs clear to auscultation Cardiovascular: RRR, no murmur, no edema Gastrointestinal (Abdomen): normal bowel sounds, soft, nontender, no hepatospl enomegaly Results & Data Results & Data Vital Signs (Past 12 Hours) Vital Signs Temp Pulse Resp BP Pulse Ox O2 Del Method 08/08/23 14:02 36.6 C 59 L 18 117/64 96 Room Air 08/08/23 07:30 36.5 C 59 L 18 152/69 H 100 Room Air Laboratory Results Short CBC 08/08/23 Range/Units 06:21 WBC 5.57 (4.8-10.8) K/ul Hgb 8.2 L (14.0-18.0) g/dl Hct 25.7 L (42.0-52.0) % Plt Count 437 H (130-400) K/uL BMP 08/08/23 06:21 Sodium 133 L Potassium 4.6 Chloride 100 Carbon Dioxide 29 BUN 74 H Creatinine 1.10 Glucose 112 H Calcium 9.7 Medications Administered Home Medications Medication Instructions Recorded Confirmed Last Taken carvedilol 25 mg tablet 25 mg PO BID 06/11/18 07/16/23 07/16/23 allopurinol 300 mg tablet 300 mg PO QAM #30 tabs 11/02/18 07/16/23 07/16/23 semaglutide 1 mg/dose (2 mg/1.5 2 mg subcut WK 01/10/19 07/16/23 07/11/23 mL) subcutaneous pen injector ([employer]) fenofibrate nanocrystallized 145 145 mg PO QPM 05/22/19 07/16/23 07/15/23 mg tablet rosuvastatin 20 mg tablet 20 mg PO HS 05/22/19 07/16/23 07/15/23 tamsulosin 0.4 mg capsule 0.4 mg PO HS #90 caps 06/10/20 07/16/23 07/15/23 finasteride 5 mg tablet 5 mg PO QAM 05/07/21 07/16/23 07/16/23 mineral oil 30 ml PO QPM 05/07/21 07/16/23 07/15/23 multivitamin 1 tab PO QAM 05/07/21 07/16/23 07/16/23 psyllium husk 3.4 gram/5.4 gram 1 tbsp PO QAM 05/07/21 07/16/23 07/16/23 oral powder (Metamucil) MoRPHine PAIN PUMP 1 pump intrathecal UD #1 unit 04/27/22 07/16/23 07/16/23 naloxone 4 mg/actuation nasal 1 spray intranasal Q3M PRN opioid 04/27/22 07/16/23 Unknown spray (Narcan) overdose #2 ea dapagliflozin propanediol 5 mg 5 mg PO DAILY 05/11/22 07/16/23 07/16/23 tablet (Farxiga) insulin degludec 100 unit/mL 34 unit subcut HS 05/11/22 07/16/23 07/15/23 subcutaneous solution (Tresiba U-100 Insulin) acetaminophen 650 mg 650 - 1,300 mg PO Q8H 12/02/22 07/16/23 07/16/23 tablet,extended release (Tylenol 8 Hour) duloxetine 20 mg capsule,delayed 20 mg PO DAILY 12/02/22 07/16/23 07/15/23 release gabapentin 300 mg capsule 300 mg PO TID 12/02/22 07/16/23 07/16/23 sennosides 8.6 mg tablet (Natural 8.6 mg PO DAILY 12/02/22 07/16/23 07/15/23 Senna Laxative) aspirin 81 mg tablet,delayed 81 mg PO QAM 12/21/22 07/16/23 07/16/23 release (Aspir-) pregabalin 50 mg capsule (Lyrica) 50 mg PO BID 07/16/23 07/16/23 Unknown valacyclovir 1 gram tablet 1,000 mg PO TID 07/16/23 07/16/23 Unknown (Valtrex) Active Medications Generic Name Dose Route Start Last Admin Trade Name Freq PRN Reason Stop Dose Admin Acetaminophen 1,000 mg 07/24/23 16:27 08/08/23 11:51 Acetaminophen 500 Mg Tab PO 08/17/23 16:55 1,000 mg Q8H PRN Administration Pain/fever Aspirin 81 mg 07/17/23 09:00 08/08/23 08:16 Aspirin 81 Mg Ectab PO 08/16/23 08:59 81 mg QAM SARITA Administration Carvedilol 25 mg 07/16/23 21:00 08/08/23 08:16 Carvedilol 25 Mg Tab PO 08/15/23 20:59 25 mg BID SARITA Administration Doxycycline Hyclate 100 mg 08/08/23 13:45 08/08/23 14:36 Doxycycline Hyclate 100 Mg Cap PO 08/15/23 13:44 100 mg BID SARITA Administration Duloxetine HCl 20 mg 07/17/23 09:00 08/08/23 08:16 Duloxetine Hcl 20 Mg Cap PO 08/16/23 08:59 20 mg DAILY SARITA Administration Enoxaparin Sodium 40 mg 07/16/23 22:00 08/07/23 21:18 Enoxaparin Inj 40 Mg/0.4 Ml Syr SQ 08/15/23 21:59 40 mg Q24H SARITA Administration Finasteride 5 mg 07/17/23 09:00 08/08/23 08:16 Finasteride 5 Mg Tab PO 08/16/23 08:59 5 mg QAM SARITA Administration Furosemide 20 mg 07/27/23 09:00 08/06/23 08:56 Furosemide 20 Mg Tab PO 08/26/23 08:59 20 mg QAM SARITA Administration Gabapentin 600 mg 07/31/23 21:00 08/08/23 14:36 Gabapentin 300 Mg Cap PO 08/30/23 20:59 600 mg TID SARITA Administration Insulin Aspart 0 units 07/16/23 21:00 08/08/23 12:19 Insulin Aspart Per Unit Charge SC 08/15/23 20:59 11 units ACHS SARITA Administration Lisinopril 10 mg 07/17/23 17:30 08/08/23 08:16 Lisinopril 10 Mg Tab PO 08/16/23 17:29 10 mg QAM SARITA Administration Mineral Oil 30 ml 07/16/23 21:30 08/07/23 21:18 Mineral Oil 30 Ml Udc PO 08/15/23 21:29 30 ml QPM SARITA Administration Miscellaneous 15 - 30 gm 07/16/23 20:45 07/18/23 08:20 Carbohydrates For Hypoglycemia PO 08/15/23 20:44 15 gm UD PRN Administration Hypoglycemia Protocol Multivitamins 1 tab 07/17/23 09:00 08/08/23 08:16 Multivitamin Tab PO 08/16/23 08:59 1 tab QAM SARITA Administration Mupirocin 1 appln 07/23/23 09:00 08/08/23 14:36 Mupirocin 2% Oint 22 Gm Tube EXT 08/22/23 08:59 1 appln TID SARITA Administration Nystatin 1 appln 08/04/23 21:00 08/08/23 08:16 Nystatin Oint 15 Gm Tube EXT 09/03/23 20:59 1 appln BID SARITA Administration Polyethylene Glycol 17 gm 07/22/23 14:00 08/08/23 14:36 Polyethylene (Miralax) 17 Gm Pack PO 08/21/23 13:59 17 gm TID SARITA Administration Pregabalin 50 mg 07/16/23 21:00 08/08/23 08:16 Pregabalin 50 Mg Cap PO 08/15/23 20:59 50 mg BID SARITA Administration Sennosides 8.6 mg 07/22/23 13:00 08/08/23 08:16 Senna 8.6 Mg Tab PO 08/21/23 12:59 8.6 mg BID SARITA Administration Tamsulosin HCl 0.4 mg 07/16/23 21:00 08/07/23 21:18 Tamsulosin Hcl 0.4 Mg Cap PO 08/15/23 20:59 0.4 mg HS SARITA Administration Tramadol HCl 50 - 100 mg 07/31/23 15:27 08/05/23 10:35 Tramadol Hcl 50 Mg Tablet PO 08/30/23 15:29 100 mg Q6H PRN Administration pain
[2023-08-08] MEDS: ENOXAPARIN INJ 40 MG/0.4 ML SYR SQ SCH (21:44)
[2023-08-08] MEDS: MINERAL OIL 30 ML UDC PO SCH ×2 (21:45→23:42)
[2023-08-08] MEDS: TAMSULOSIN HCL 0.4 MG CAP PO SCH (21:45)
[2023-08-09] MEDS: ACYCLOVIR SOD 850 MG in DEXTROSE 5% 250 ML IV SCH ×3 (04:57→19:56)
[2023-08-09 07:09] LABS: Hematocrit (blood only) 26.3 % (42.0-52.0); Hemoglobin 8.3 g/dl (14.0-18.0); Mean Corpuscular Hemoglobin 29.3 pg (25.0-34.0); Mean Corpuscular Hgb Conc 31.6 g/dL (32.0-36.0); Mean Corpuscular Volume 92.9 fL (80.0-100.0); Mean Platelet Volume 9.6 fL (9.4-12.4); Nucleated RBC # (auto) 0.02 K/uL (0.00-0.12); Nucleated RBC % (auto) 0.4 %; Platelet Count 461 K/uL (130-400); RDW Coefficient of Variation 15.9 % (11.5-14.5); RDW Standard Deviation 53.9 fL (36.4-46.3); Red Blood Count 2.83 M/uL (4.70-6.10); White Blood Count 5.29 K/ul (4.8-10.8)
[2023-08-09] MEDS: INSULIN ASPART PER UNIT CHARGE SC SCH ×4 (08:35→20:49)
[2023-08-09] MEDS: DULoxetine HCL 20 MG CAP PO SCH (08:41)
[2023-08-09] MEDS: DOXYCYCLINE HYCLATE 100 MG CAP PO SCH ×2 (08:42→19:58)
[2023-08-09] MEDS: FINASTERIDE 5 MG TAB PO SCH (08:42)
[2023-08-09] MEDS: carvediloL 25 MG TAB PO SCH ×2 (08:42→19:59)
[2023-08-09] MEDS: ASPIRIN 81 MG ECTAB PO SCH (08:42)
[2023-08-09] MEDS: NYSTATIN OINT 15 GM TUBE EXT SCH ×2 (08:43→20:00)
[2023-08-09] MEDS: MULTIVITAMIN TAB PO SCH (08:43)
[2023-08-09] MEDS: SENNA 8.6 MG TAB PO SCH ×2 (08:43→19:58)
[2023-08-09] MEDS: lisinopril 10 MG TAB PO SCH (08:43)
[2023-08-09] MEDS: MUPIROCIN 2% OINT 22 GM TUBE EXT SCH ×3 (08:46→20:00)
[2023-08-09] MEDS: PREGABALIN 50 MG CAP PO SCH ×2 (08:52→21:04)
[2023-08-09] MEDS: POLYETHYLENE (MIRALAX) 17 GM PACK PO SCH ×3 (08:52→20:01)
[2023-08-09 08:55] LABS: BUN Creatinine Ratio 59.1 (10-20); Calcium 9.8 mg/dl (8.6-10.3); Creatinine Clr Calc Pharmacy 55.2 ml/min; Est GFR (African American) 60.6 ml/min; Est GFR (Non-African American) 52.3 ml/min; Phosphorus 3.1 mg/dl (2.5-4.9)
[2023-08-09] MEDS: GABAPENTIN 300 MG CAP PO SCH ×3 (10:06→19:59)
--- NOTE | 2023-08-09 17:34 | Hospitalist Progress Note ---
Date of Service August 09, 2023 Assessment & Plan (1) Myopathy: (2) Disseminated herpes zoster: (3) Ambulatory dysfunction: (4) Bilateral edema of lower extremity: (5) S/P insertion of intrathecal pump: (6) Myelomalacia of cervical cord: (7) Cellulitis: Plan 83 year old gentleman with PMHx of significant for chronic pain with morphine pump, DMII and BPH admitted for placement per family, after a few weeks of generalized progressive weakness, likely attributed to worsening myopathy and weakness after simultaneous UTI and herpes zoster infection in the setting of statin, fibrate therapy and allopurinol. He is being managed for the following: #Disseminated Zoster New lesions on buttock c/w herpes zoster , Airborne precautions VZV/HSV swabs of lesions obtained, pending since 08/03 Plan for 14 days total of IV if positive EOT 08/10 [place] capsaicin cream for neuralgia lesions dries and crusted on exam. #Penile ulcer *improving Purulent discharge noted on ulcer of foreskin near lawson catheter Urology consulted - suspect possible balanitis of the penis/foreskin which is likely both yeast and bacterial Wound culture MRSA--transitioned to doxy from augmentin, EOT 08/15, mupirocin topically Continue CIC to prevent further foreskin compression/irritation q6h . Kandice GONZALES'tereza. #Ambulatory Dysfunction, myopathy #thoracic myelopathy #Failed Laminectomy syndrome Freq falls happening at home, pt with bruising on chest CK elevated, then downtrended CM consult for placement needs in this situation Ortho evaluated patient given left leg sensory loss and bilateral motor weakness: no surgical intervention given comorbidities stopped statin, fenofibrate and allopurinol and he is improved. Pending placement Need to continue turning patient q2h and helping to prevent breakdown on scrotum which is also swollen. Expect myopathy to be snf, but may improve over the next several weeks. #Rhabdomyolysis *resolved CK elevated on admission, improved with rehydration efforts and stopped statin, fibrate. #Lower extremity edema Pt with significant lower extremity edema Chest xray with noted cardiomegaly; Echo 60% EF, pHTN, LVH Swelling near resolved on exam but is present in his hands/upper extremities now, likely related to poor movement/weakness, no reported heart failure LUE doppler negative for acute process Encourage extremity elevation and ambulation OOB to chair as tolerated. Pt didn't tolerate lasix very well -see below, cautious use of diuresis. #SRAVANI *resolved #CKD stage III GFR ranges in 40s since 2019 Held Lasix 20mg daily given SRAVANI and no notably improvement in edema, just elevate BUN/Cr ratio and hyponatremia #LLE swelling and erythema *improving Doppler US LLE with low suspicion for clot Completed course of antibiotics for presumptive cellulitis on admission #DMII Hgba1c of 7.4 Holding home meds Basal/Bolus insulin while hospitalized- noted that pt hypoglycemic in the AM. basal insulin held. BSG at goal, cont current regimen. #HTN Chronic, stable. Cont coreg, lisinopril and lasix. #Chronic Pain Has morphine pump managed by [facility] management Consult placed to pain management for further pain management recs while in hosp Also on gabapentin, lyrica (noted both are gabapentinoids), cymbalta, tylenol for pain. Continue bowel regimen for chronic narcotic use- scheduled sennokot and metamucil, miralax ordered as pt on a pump Pain Consult placed on 07/16-no change in infusion worsened pain from shingles, gabapentin increased to 600mg TID and added PRN tramadol Will need pain follow upon discharge to have pump filled by the end of the month, if not discharged prior will need pain plan in place #Constipation Continue bowel regimen for chronic narcotic use Scheduled sennokot and metamucil, miralax as pt on a morphine pump BM 08/03 #HLD Hold home statin and fibrate as may contribute to elevated CK and worsening myopathy. BPH/LUTS continue home meds Diet: Low sodium, DMII DVT prophylaxis: Lovenox CODE STATUS: DNR/DNI per POLST form Dispo: SNF Admission and Anticipated Discharge Date Admission Date: July 16, 2023 Subjective Patient seen and examined at bedside. Patient was lying in bed, on room air, reports feeling better, reports improvement, denies headache or dizziness or chest pain, reports eating okay, has not moved bowels since last 4 to 5 days, denies belly pain. Will increase bowel regimen. Physical Exam Physical Exam: Respiratory: normal respiratory effort, lungs clear to auscultation Cardiovascular: RRR, no murmur, no edema Gastrointestinal (Abdomen): normal bowel sounds, soft, nontender, no hepatosplenomegaly 1+ BLE edema, on room air. Dried and crusted shingles lesion on the left upper buttock. Results & Data Results & Data Vital Signs (Past 12 Hours) Vital Signs Temp Pulse Resp BP Pulse Ox O2 Del Method 08/09/23 16:26 36.5 C 59 L 18 133/68 96 Room Air 08/09/23 08:50 Room Air 08/09/23 08:01 36.5 C 86 18 111/81 98 Room Air
[2023-08-09] MEDS ORDERED: MINERAL OIL ENEMA 133 ML BTL PR ONE (18:26)
[2023-08-09 19:44] LABS: Source BUTTOCK; V-Zoster Culture NOT ISOLATED
[2023-08-09] MEDS: MINERAL OIL 30 ML UDC PO SCH (19:59)
[2023-08-09] MEDS: TAMSULOSIN HCL 0.4 MG CAP PO SCH (20:00)
[2023-08-09] MEDS: ENOXAPARIN INJ 40 MG/0.4 ML SYR SQ SCH (21:04)
[2023-08-10] MEDS: INSULIN ASPART PER UNIT CHARGE SC SCH ×4 (08:39→20:56)
[2023-08-10] MEDS: DULoxetine HCL 20 MG CAP PO SCH (08:44)
[2023-08-10] MEDS: POLYETHYLENE (MIRALAX) 17 GM PACK PO SCH ×3 (08:44→20:17)
[2023-08-10] MEDS: SENNA 8.6 MG TAB PO SCH ×2 (08:45→20:18)
[2023-08-10] MEDS: PREGABALIN 50 MG CAP PO SCH ×2 (08:45→20:18)
[2023-08-10] MEDS: lisinopril 10 MG TAB PO SCH (08:45)
[2023-08-10] MEDS: MULTIVITAMIN TAB PO SCH (08:46)
[2023-08-10] MEDS: GABAPENTIN 300 MG CAP PO SCH ×3 (08:46→20:20)
[2023-08-10] MEDS: carvediloL 25 MG TAB PO SCH ×2 (08:46→20:17)
[2023-08-10] MEDS: ASPIRIN 81 MG ECTAB PO SCH (08:47)
[2023-08-10] MEDS: MUPIROCIN 2% OINT 22 GM TUBE EXT SCH ×3 (08:47→20:19)
[2023-08-10] MEDS: NYSTATIN OINT 15 GM TUBE EXT SCH ×2 (08:47→20:19)
[2023-08-10] MEDS: FINASTERIDE 5 MG TAB PO SCH (08:47)
[2023-08-10] MEDS: DOXYCYCLINE HYCLATE 100 MG CAP PO SCH ×2 (08:48→20:18)
[2023-08-10 09:36] LABS: Hematocrit (blood only) 26.6 % (42.0-52.0); Hemoglobin 8.6 g/dl (14.0-18.0); Mean Corpuscular Hemoglobin 29.8 pg (25.0-34.0); Mean Corpuscular Hgb Conc 32.3 g/dL (32.0-36.0); Mean Platelet Volume 9.5 fL (9.4-12.4); Platelet Count 449 K/uL (130-400); RDW Coefficient of Variation 16.1 % (11.5-14.5); RDW Standard Deviation 53.1 fL (36.4-46.3); Red Blood Count 2.89 M/uL (4.70-6.10); White Blood Count 5.84 K/ul (4.8-10.8)
[2023-08-10 09:56] LABS: BUN Creatinine Ratio 64.7 (10-20); Calcium 9.9 mg/dl (8.6-10.3); Creatinine Clr Calc Pharmacy 59.2 ml/min; Est GFR (African American) 67.6 ml/min; Est GFR (Non-African American) 58.3 ml/min; Potassium 4.7 mmol/L (3.5-5.1)
[2023-08-10] MEDS ORDERED: LACTULOSE SYRUP 20 GM/30 ML UDC PO ONE (16:41)
[2023-08-10] MEDS ORDERED: FUROSEMIDE INJ 20 MG/2 ML VIAL IV ONE (16:45)
[2023-08-10] MEDS ORDERED: SOD PHOSPHATE/SOD BIPHOSPHATE ENEMA 132 ML BTL PR PRN (16:46)
--- NOTE | 2023-08-10 16:48 | Hospitalist Progress Note ---
Date of Service August 10, 2023 Assessment & Plan (1) Myopathy: (2) Disseminated herpes zoster: (3) Ambulatory dysfunction: (4) Bilateral edema of lower extremity: (5) S/P insertion of intrathecal pump: (6) Myelomalacia of cervical cord: (7) Cellulitis: Plan 83 year old gentleman with PMHx of significant for chronic pain with morphine pump, DMII and BPH admitted for placement per family, after a few weeks of generalized progressive weakness, likely attributed to worsening myopathy and weakness after simultaneous UTI and herpes zoster infection in the setting of statin, fibrate therapy and allopurinol. He is being managed for the following: #Disseminated Zoster New lesions on buttock c/w herpes zoster , Airborne precautions VZV/HSV swabs of lesions obtained, pending since 08/03 Plan for 14 days total of IV if positive EOT 08/10 [place] capsaicin cream for neuralgia lesions dries and crusted on exam. #Penile ulcer *improving Purulent discharge noted on ulcer of foreskin near lawson catheter Urology consulted - suspect possible balanitis of the penis/foreskin which is likely both yeast and bacterial Wound culture MRSA--transitioned to doxy from augmentin, EOT 08/15, mupirocin topically Continue CIC to prevent further foreskin compression/irritation q6h . Kandice GONZALES'tereza. #Ambulatory Dysfunction, myopathy #thoracic myelopathy #Failed Laminectomy syndrome Freq falls happening at home, pt with bruising on chest CK elevated, then downtrended CM consult for placement needs in this situation Ortho evaluated patient given left leg sensory loss and bilateral motor weakness: no surgical intervention given comorbidities stopped statin, fenofibrate and allopurinol and he is improved. Pending placement Need to continue turning patient q2h and helping to prevent breakdown on scrotum which is also swollen. Expect myopathy to be care home, but may improve over the next several weeks. #Rhabdomyolysis *resolved CK elevated on admission, improved with rehydration efforts and stopped statin, fibrate. #Lower extremity edema Pt with significant lower extremity edema Chest xray with noted cardiomegaly; Echo 60% EF, pHTN, LVH Swelling near resolved on exam but is present in his hands/upper extremities now, likely related to poor movement/weakness, no reported heart failure LUE doppler negative for acute process Encourage extremity elevation and ambulation OOB to chair as tolerated. Pt didn't tolerate lasix very well -see below, cautious use of diuresis. giving 20 mg iv lasix today. #SRAVANI *resolved #CKD stage III GFR ranges in 40s since 2019 Held Lasix 20mg daily given SRAVANI and no notably improvement in edema, just elevate BUN/Cr ratio and hyponatremia #LLE swelling and erythema *improving Doppler US LLE with low suspicion for clot Completed course of antibiotics for presumptive cellulitis on admission #DMII Hgba1c of 7.4 Holding home meds Basal/Bolus insulin while hospitalized- noted that pt hypoglycemic in the AM. basal insulin held. BSG at goal, cont current regimen. #HTN Chronic, stable. Cont coreg, lisinopril and lasix. #Chronic Pain Has morphine pump managed by [facility] management Consult placed to pain management for further pain management recs while in hosp Also on gabapentin, lyrica (noted both are gabapentinoids), cymbalta, tylenol for pain. Continue bowel regimen for chronic narcotic use- scheduled sennokot and metamucil, miralax ordered as pt on a pump Pain Consult placed on 07/16-no change in infusion worsened pain from shingles, gabapentin increased to 600mg TID and added PRN tramadol Will need pain follow upon discharge to have pump filled by the end of the month, if not discharged prior will need pain plan in place #Constipation Continue bowel regimen for chronic narcotic use Scheduled sennokot and metamucil, miralax as pt on a morphine pump BM 08/03 #HLD Hold home statin and fibrate as may contribute to elevated CK and worsening myopathy. BPH/LUTS continue home meds Diet: Low sodium, DMII DVT prophylaxis: Lovenox CODE STATUS: DNR/DNI per POLST form Dispo: SNF Admission and Anticipated Discharge Date Admission Date: July 16, 2023 Subjective Patient seen and examined at bedside. Patient was lying in bed, on room air, reports feeling better, reports improvement, denies headache or dizziness or chest pain, reports eating okay, has not moved bowels since last 5-6 days, denies belly pain. given mineral oil enema last evenig, will use po lactulose and prn enema. obtain XR KUB. Physical Exam Physical Exam: Respiratory: normal respiratory effort, lungs clear to auscultation Cardiovascular: RRR, no murmur, no edema Gastrointestinal (Abdomen): normal bowel sounds, soft, nontender, no hepatosplenomegaly 1+ BLE edema, on room air. Dried and crusted shingles lesion on the left upper buttock. Results & Data Results & Data Vital Signs (Past 12 Hours) Vital Signs Temp Pulse Resp BP BP Pulse Ox O2 Del Method 08/10/23 15:20 36.6 C 60 17 133/66 97 Room Air 08/10/23 09:26 Room Air 08/10/23 08:40 64 08/10/23 07:49 36.4 C L 60 18 129/73 96 Room Air
--- NOTE | 2023-08-10 19:26 | XRay Report ---
KUB HISTORY: ? Constipation COMPARISON: KUB 07/22/2023. FINDINGS: The bowel gas pattern is unremarkable. There are no dilated loops of small bowel to suggest an obstruction. Extensive lumbar spinal fusion hardware again noted. There is a left lower quadrant electronic device, unchanged. The heart remains enlarged. There are poststernotomy changes. Mild dil ated gas-filled loop of bowel within the upper abdomen. This appears to represent the stomach. There is mild fecal retention. No pneumoperitoneum or pneumatosis. IMPRESSION: 1. Mild fecal retention. 2. Mild gaseous distention of the stomach. 3. No evidence for a small bowel obstruction. ACT 112: Negative or not required by law. Electronically signed by: Salty Martinez M.D. 08/10/2023 7:25 PM
[2023-08-10] MEDS: MINERAL OIL 30 ML UDC PO SCH (20:18)
[2023-08-10] MEDS: ENOXAPARIN INJ 40 MG/0.4 ML SYR SQ SCH (20:20)
[2023-08-10] MEDS: TAMSULOSIN HCL 0.4 MG CAP PO SCH (20:20)
[2023-08-11] MEDS: ASPIRIN 81 MG ECTAB PO SCH (07:40)
[2023-08-11] MEDS: carvediloL 25 MG TAB PO SCH ×2 (07:40→21:01)
[2023-08-11] MEDS: lisinopril 10 MG TAB PO SCH (07:41)
[2023-08-11] MEDS: DULoxetine HCL 20 MG CAP PO SCH (07:41)
[2023-08-11] MEDS: FINASTERIDE 5 MG TAB PO SCH (07:41)
[2023-08-11] MEDS: DOXYCYCLINE HYCLATE 100 MG CAP PO SCH ×2 (07:41→21:02)
[2023-08-11] MEDS: GABAPENTIN 300 MG CAP PO SCH ×3 (07:41→21:03)
[2023-08-11] MEDS: MUPIROCIN 2% OINT 22 GM TUBE EXT SCH ×3 (07:41→21:04)
[2023-08-11] MEDS: MULTIVITAMIN TAB PO SCH (07:41)
[2023-08-11] MEDS: NYSTATIN OINT 15 GM TUBE EXT SCH ×2 (07:42→21:04)
[2023-08-11] MEDS: POLYETHYLENE (MIRALAX) 17 GM PACK PO SCH ×3 (07:42→21:08)
[2023-08-11] MEDS: SENNA 8.6 MG TAB PO SCH ×2 (07:43→21:05)
[2023-08-11 08:23] LABS: BUN Creatinine Ratio 69.4 (10-20); Calcium 10.1 mg/dl (8.6-10.3); Creatinine Clr Calc Pharmacy 63.8 ml/min; Est GFR (African American) 73.7 ml/min; Est GFR (Non-African American) 63.6 ml/min; Phosphorus 3.2 mg/dl (2.5-4.9); Potassium 4.8 mmol/L (3.5-5.1)
[2023-08-11] MEDS: INSULIN ASPART PER UNIT CHARGE SC SCH ×4 (08:46→21:31)
[2023-08-11] MEDS: PREGABALIN 50 MG CAP PO SCH ×2 (08:47→21:07)
[2023-08-11] MEDS ORDERED: FUROSEMIDE 40 MG/4 ML VIAL IV ONE (11:13)
--- NOTE | 2023-08-11 15:17 | Hospitalist Progress Note ---
Date of Service August 11, 2023 Assessment & Plan (1) Myopathy: (2) Disseminated herpes zoster: (3) Ambulatory dysfunction: (4) Bilateral edema of lower extremity: (5) S/P insertion of intrathecal pump: (6) Myelomalacia of cervical cord: (7) Cellulitis: Plan 83 year old gentleman with PMHx of significant for chronic pain with morphine pump, DMII and BPH admitted for placement per family, after a few weeks of generalized progressive weakness, likely attributed to worsening myopathy and weakness after simultaneous UTI and herpes zoster infection in the setting of statin, fibrate therapy and allopurinol. He is being managed for the following: #. Lower extremity edema #. Left UE edema Pt with significant lower extremity edema and left UE edema Chest xray with noted cardiomegaly; Echo 60% EF, pHTN, LVH Swelling near resolved LE on exam but is present in his hands/upper extremities now, likely related to poor movement/weakness, no reported heart failure LUE doppler negative for acute process. Doppler US LLE with low suspicion for clot/ Completed course of antibiotics for presumptive cellulitis on admission. Encourage L U extremity elevation and ambulation OOB to chair as tolerated. FR 1800 ml; iv lasix (give after clinical assessment on daily basis) w/ freq intermittent cath; increase protein content in diet. PO lasix on hold. Monitor and replete electrolytes. #Penile ulcer *improving Purulent discharge noted on ulcer of foreskin near lawson catheter Urology consulted - suspect possible balanitis of the penis/foreskin which is likely both yeast and bacterial Wound culture MRSA--transitioned to doxy from augmentin, EOT 08/15, mupirocin topically Continue CIC to prevent further foreskin compression/irritation q6h . Kandice DC'd. #Ambulatory Dysfunction, myopathy #thoracic myelopathy #Failed Laminectomy syndrome Freq falls happening at home, pt with bruising on chest CK elevated, then downtrended CM consult for placement needs in this situation Ortho evaluated patient given left leg sensory loss and bilateral motor weakness: no surgical intervention given comorbidities stopped statin, fenofibrate and allopurinol and feels ? improved. Will need pcsk9i, pt will need f/u w/ PCP office to initiate on this. PT/OT Pending placement Need to continue turning patient q2h and helping to prevent breakdown on scrotum which is also swollen. Expect myopathy to be detention, but may improve over the next several weeks. #Disseminated Zoster New lesions on buttock c/w herpes zoster , Airborne precautions VZV/HSV swabs of lesions obtained, pending since 08/03 Plan for 14 days total of IV if positive EOT 08/10 [place] capsaicin cream for neuralgia lesions dries and crusted on exam. #. Rhabdomyolysis *resolved [CK elevated on admission, improved with rehydration efforts and stopped statin, fibrate]. #. SRAVANI over CKD stage III: GFR ranges in 40s since 2019. SRAVANI has improved. Monitor BMP as needed. #. DMII, h/o: A1c of 7.4 on 07/17/2023. Sliding scale insulin in hospital. #. HTN: Chronic, stable. Cont coreg, lisinopril and lasix as tolerated. #Chronic Pain [facility] morphine pump [facility] Consult placed to pain management for further pain management recs while in hosp Also on gabapentin, lyrica (noted both are gabapentinoids), cymbalta, tylenol fo r pain. Continue bowel regimen for chronic narcotic use- scheduled sennokot and metamucil, miralax ordered as pt on a pump Pain Consult placed on 07/16-no change in infusion worsened pain from shingles, gabapentin increased to 600mg TID and added PRN tramadol Will need pain follow upon discharge to have pump filled by the end of the month, if not discharged prior will need pain plan in place #Constipation Continue bowel regimen for chronic narcotic use Scheduled sennokot and metamucil, miralax as pt on a morphine pump BM 08/03 #HLD: Hold home statin and fibrate as may contribute to elevated CK and worsening myopathy. Will need f/u w/ PCP as OP for consideration of PCSK9i. BPH/LUTS: continue home meds Diet: Low sodium, DMII, FR 1800ml DVT prophylaxis: Lovenox CODE STATUS: DNR/DNI per POLST form Dispo: SNF pending UE edema improvement. Admission and Anticipated Discharge Date Admission Date: July 16, 2023 Subjective Patient seen and examined at bedside. Patient was lying in bed, on room air, reports feeling better, reports improvement, denies headache or dizziness or chest pain, reports eating okay, moved bowels - continue bowel regimen/modify as appropriate, denies belly pain. Physical Exam Physical Exam: Respiratory: normal respiratory effort, lungs clear to auscultation Cardiovascular: RRR, no murmur, no edema Gastrointestinal (Abdomen): normal bowel sounds, soft, nontender, no hepatosplenomegaly 1+ BLE edema, on room air. 2+ LUE edema Dried and crusted shingles lesion on the left upper buttock. Results & Data Results & Data Vital Signs (Past 12 Hours) Vital Signs Temp Pulse Resp BP Pulse Ox O2 Del Method 08/11/23 08:11 36.8 C 63 18 119/68 95 Room Air 08/11/23 08:00 Room Air
[2023-08-11] MEDS: traMADol HCL 50 MG TABLET PO PRN (15:39)
[2023-08-11] MEDS: MINERAL OIL 30 ML UDC PO SCH (21:04)
[2023-08-11] MEDS: TAMSULOSIN HCL 0.4 MG CAP PO SCH (21:05)
[2023-08-11] MEDS: ENOXAPARIN INJ 40 MG/0.4 ML SYR SQ SCH (21:07)
[2023-08-12 07:51] LABS: Hematocrit (blood only) 26.9 % (42.0-52.0); Hemoglobin 8.5 g/dl (14.0-18.0); Mean Corpuscular Hemoglobin 29.8 pg (25.0-34.0); Mean Corpuscular Hgb Conc 31.6 g/dL (32.0-36.0); Mean Corpuscular Volume 94.4 fL (80.0-100.0); Mean Platelet Volume 9.5 fL (9.4-12.4); Nucleated RBC # (auto) 0.03 K/uL (0.00-0.12); Nucleated RBC % (auto) 0.4 %; Platelet Count 447 K/uL (130-400); RDW Coefficient of Variation 16.6 % (11.5-14.5); Red Blood Count 2.85 M/uL (4.70-6.10); White Blood Count 6.77 K/ul (4.8-10.8)
[2023-08-12] MEDS: ASPIRIN 81 MG ECTAB PO SCH (08:11)
[2023-08-12] MEDS: INSULIN ASPART PER UNIT CHARGE SC SCH ×4 (08:11→20:18)
[2023-08-12] MEDS: GABAPENTIN 300 MG CAP PO SCH ×3 (08:12→19:36)
[2023-08-12] MEDS: carvediloL 25 MG TAB PO SCH ×2 (08:12→19:33)
[2023-08-12] MEDS: DULoxetine HCL 20 MG CAP PO SCH (08:12)
[2023-08-12] MEDS: DOXYCYCLINE HYCLATE 100 MG CAP PO SCH ×2 (08:12→19:36)
[2023-08-12] MEDS: FINASTERIDE 5 MG TAB PO SCH (08:12)
[2023-08-12] MEDS: NYSTATIN OINT 15 GM TUBE EXT SCH ×2 (08:13→19:35)
[2023-08-12] MEDS: lisinopril 10 MG TAB PO SCH (08:13)
[2023-08-12] MEDS: POLYETHYLENE (MIRALAX) 17 GM PACK PO SCH ×3 (08:13→19:34)
[2023-08-12] MEDS: MULTIVITAMIN TAB PO SCH (08:13)
[2023-08-12] MEDS: traMADol HCL 50 MG TABLET PO PRN (08:13)
[2023-08-12] MEDS: SENNA 8.6 MG TAB PO SCH ×2 (08:13→19:35)
[2023-08-12] MEDS: PREGABALIN 50 MG CAP PO SCH ×2 (08:13→21:12)
[2023-08-12] MEDS: MUPIROCIN 2% OINT 22 GM TUBE EXT SCH ×3 (08:14→19:35)
[2023-08-12 08:28] LABS: Calcium 9.7 mg/dl (8.6-10.3); Potassium 4.8 mmol/L (3.5-5.1)
[2023-08-12 08:34] LABS: BUN Creatinine Ratio 65.9 (10-20); Chol HDL Ratio 6.8 (0-5); Creatinine Clr Calc Pharmacy 54.7 ml/min; Est GFR (African American) 61.2 ml/min; Est GFR (Non-African American) 52.8 ml/min
--- NOTE | 2023-08-12 17:17 | Hospitalist Progress Note ---
Date of Service August 12, 2023 Assessment & Plan (1) Myopathy: (2) Disseminated herpes zoster: (3) Ambulatory dysfunction: (4) Bilateral edema of lower extremity: (5) S/P insertion of intrathecal pump: (6) Myelomalacia of cervical cord: (7) Cellulitis: Plan 83 year old gentleman with PMHx of significant for chronic pain with morphine pump, DMII and BPH admitted for placement per family, after a few weeks of generalized progressive weakness, likely attributed to worsening myopathy and weakness after simultaneous UTI and herpes zoster infection in the setting of statin, fibrate therapy and allopurinol. He is being managed for the following: #. Lower extremity edema #. Left UE edema Pt with significant lower extremity edema and left UE edema Chest xray with noted cardiomegaly; Echo 60% EF, pHTN, LVH Swelling near resolved LE on exam but is present in his hands/upper extremities now, likely related to poor movement/weakness, no reported heart failure LUE doppler negative for acute process. Doppler US LLE with low suspicion for clot/ Completed course of antibiotics for presumptive cellulitis on admission. Encourage L U extremity elevation and ambulation OOB to chair as tolerated. Swelling exacerbated by poor mobility. FR 1800 ml; iv lasix (give after clinical assessment on daily basis) w/ freq intermittent cath; increase protein content in diet. PO lasix on hold. Monitor and replete electrolytes. #Penile ulcer *improving Purulent discharge noted on ulcer of foreskin near lawson catheter Urology consulted - suspect possible balanitis of the penis/foreskin which is likely both yeast and bacterial Wound culture MRSA--transitioned to doxy from augmentin, EOT 08/15, mupirocin topically Continue CIC to prevent further foreskin compression/irritation q6h . Kandice DC'd. #Ambulatory Dysfunction, myopathy #thoracic myelopathy #Failed Laminectomy syndrome Freq falls happening at home, pt with bruising on chest CK elevated, then downtrended CM consult for placement needs in this situation Ortho evaluated patient given left leg sensory loss and bilateral motor weakness: no surgical intervention given comorbidities stopped statin, fenofibrate and allopurinol and feels ? improved. Will likely need pcsk9i, pt to f/u w/ PCP office to initiate on this. PT/OT Pending placement Need to continue turning patient q2h and helping to prevent breakdown on scrotum which is also swollen. 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 #Disseminated Zoster New lesions on buttock c/w herpes zoster , Airborne precautions VZV/HSV swabs of lesions obtained, pending since 08/03 Plan for 14 days total of IV if positive EOT 08/10 - completed course. [place] capsaicin cream for neuralgia lesions dries and crusted on exam. #. Rhabdomyolysis *resolved [CK elevated on admission, improved with rehydration efforts and stopped statin, fibrate]. #. SRAVANI over CKD stage III: GFR ranges in 40s since 2019. SRAVANI has improved. Monitor BMP as needed. #. DMII, h/o: A1c of 7.4 on 07/17/2023. Sliding scale insulin in hospital. #. HTN: Chronic, stable. Cont coreg, lisinopril, and lasix as tolerated. #Chronic Pain Has morphine pump [facility] Consult placed to pain management for further pain management recs while in hosp Also on gabapentin, lyrica (noted both are gabapentinoids), cymbalta, tylenol for pain. Continue bowel regimen for chronic narcotic use- scheduled sennokot and metamucil, miralax ordered as pt on a pump Pain Consult placed on 07/16-no change in infusion worsened pain from shingles, gabapentin increased to 600mg TID and added PRN tramadol Will need pain follow upon discharge to have pump filled by the end of the mon, if not discharged prior will need pain plan in place #Constipation Continue bowel regimen for chronic narcotic use Scheduled sennokot and metamucil, miralax as pt on a morphine pump BM 08/03 #HLD: Hold home statin and fibrate as may contribute to elevated CK and worsening myopathy. Will need f/u w/ PCP as OP for consideration of PCSK9i. BPH/LUTS: continue home meds Diet: Low sodium, DMII, FR 1800ml DVT prophylaxis: Lovenox CODE STATUS: DNR/DNI per POLST form Dispo: SNF pending UE edema improvement. Admission and Anticipated Discharge Date Admission Date: July 16, 2023 Subjective Patient seen and examined at bedside. Patient was lying in bed, on room air, reports feeling better, reports improvement, denies headache or dizziness or chest pain, reports eating okay, moving bowels - continue bowel regimen/modify as appropriate, denies belly pain. Physical Exam Physical Exam: Respiratory: normal respiratory effort, lungs clear to auscultation Cardiovascular: RRR, no murmur, no edema Gastrointestinal (Abdomen): normal bowel sounds, soft, nontender, no hepatosplenomegaly 1+ BLE edema, on room air. 2+ LUE edema Dried and crusted shingles lesion on the left upper buttock. Results & Data Results & Data Vital Signs (Past 12 Hours) Vital Signs Temp Pulse Resp BP Pulse Ox O2 Del Method 08/12/23 14:56 36.6 C 60 16 116/56 L 95 Room Air 08/12/23 07:45 Room Air 08/12/23 07:27 36.9 C 63 16 135/70 96 Room Air
[2023-08-12] MEDS ORDERED: FUROSEMIDE 40 MG/4 ML VIAL IV ONE (17:30)
[2023-08-12] MEDS: MINERAL OIL 30 ML UDC PO SCH (19:35)
[2023-08-12] MEDS: TAMSULOSIN HCL 0.4 MG CAP PO SCH (19:37)
[2023-08-12] MEDS: ENOXAPARIN INJ 40 MG/0.4 ML SYR SQ SCH (21:12)
[2023-08-13] MEDS: carvediloL 25 MG TAB PO SCH ×2 (08:09→20:18)
[2023-08-13] MEDS: ADVANCED PROBIOTIC 1250 MG CAPSULE PO SCH (08:09)
[2023-08-13] MEDS: MULTIVITAMIN TAB PO SCH (08:10)
[2023-08-13] MEDS: lisinopril 10 MG TAB PO SCH (08:11)
[2023-08-13] MEDS: FINASTERIDE 5 MG TAB PO SCH (08:11)
[2023-08-13] MEDS: ASPIRIN 81 MG ECTAB PO SCH (08:11)
[2023-08-13] MEDS: DULoxetine HCL 20 MG CAP PO SCH (08:11)
[2023-08-13] MEDS: GABAPENTIN 300 MG CAP PO SCH ×3 (08:12→20:19)
[2023-08-13] MEDS: DOXYCYCLINE HYCLATE 100 MG CAP PO SCH ×2 (08:12→20:19)
[2023-08-13] MEDS: SENNA 8.6 MG TAB PO SCH ×2 (08:13→20:20)
[2023-08-13] MEDS: PREGABALIN 50 MG CAP PO SCH ×2 (08:23→20:17)
[2023-08-13] MEDS: POLYETHYLENE (MIRALAX) 17 GM PACK PO SCH ×3 (08:23→20:20)
[2023-08-13 08:28] LABS: BUN Creatinine Ratio 86.7 (10-20); Creatinine Clr Calc Pharmacy 70.3 ml/min; Est GFR (African American) 82.9 ml/min; Est GFR (Non-African American) 71.5 ml/min; Magnesium 2.1 mg/dl (1.7-2.4); Potassium 4.6 mmol/L (3.5-5.1)
[2023-08-13] MEDS: INSULIN ASPART PER UNIT CHARGE SC SCH ×4 (08:56→20:29)
[2023-08-13] MEDS: NYSTATIN OINT 15 GM TUBE EXT SCH ×2 (08:59→20:17)
[2023-08-13] MEDS: MUPIROCIN 2% OINT 22 GM TUBE EXT SCH ×3 (11:00→20:17)
--- NOTE | 2023-08-13 15:30 | Hospitalist Progress Note ---
Date of Service August 13, 2023 Assessment & Plan (1) Myopathy: (2) Disseminated herpes zoster: (3) Ambulatory dysfunction: (4) Bilateral edema of lower extremity: (5) S/P insertion of intrathecal pump: (6) Myelomalacia of cervical cord: (7) Cellulitis: Plan 83 year old gentleman with PMHx of significant for chronic pain with morphine pump, DMII and BPH admitted for placement per family, after a few weeks of generalized progressive weakness, likely attributed to worsening myopathy and weakness after simultaneous UTI and herpes zoster infection in the setting of statin, fibrate therapy and allopurinol. He is being managed for the following: #. Lower extremity edema #. Left UE edema Pt with significant lower extremity edema and left UE edema Chest xray with noted cardiomegaly; Echo 60% EF, pHTN, LVH Swelling near resolved LE on exam but is present in his hands/upper extremities now, likely related to poor movement/weakness, no reported heart failure LUE doppler negative for acute process. Doppler US LLE with low suspicion for clot/ Completed course of antibiotics for presumptive cellulitis on admission. Encourage L U extremity elevation and ambulation OOB to chair as tolerated. Swelling exacerbated by poor mobility. FR 1800 ml; iv lasix (give after clinical assessment on daily basis) w/ freq intermittent cath; increase protein content in diet. PO lasix on hold. Monitor and replete electrolytes. Mobilize LUE frequently, elevate above level of heart to help w/ swelling. #Penile ulcer *improving Purulent discharge noted on ulcer of foreskin near lawson catheter Urology consulted - suspect possible balanitis of the penis/foreskin which is likely both yeast and bacterial Wound culture MRSA--transitioned to doxy from augmentin, EOT 08/15, mupirocin topically Continue CIC to prevent further foreskin compression/irritation q6h . Lawson DC'd. #Ambulatory Dysfunction, myopathy #thoracic myelopathy #Failed Laminectomy syndrome Freq falls happening at home, pt with bruising on chest CK elevated, then downtrended CM consult for placement needs in this situation Ortho evaluated patient given left leg sensory loss and bilateral motor weakness: no surgical intervention given comorbidities stopped statin, fenofibrate and allopurinol and feels ? improved. Will likely n eed pcsk9i, pt to f/u w/ PCP office to initiate on this. Pt made aware. PT/OT Pending placement Need to continue turning patient q2h and helping to prevent breakdown on scrotum which is also swollen. Expect myopathy to be halfway, but may improve over the next several weeks. #Disseminated Zoster New lesions on buttock c/w herpes zoster , Airborne precautions VZV/HSV swabs of lesions obtained, pending since 08/03 Plan for 14 days total of IV if positive EOT 08/10 - completed course. [place] capsaicin cream for neuralgia lesions dries and crusted on exam. #. Rhabdomyolysis *resolved [CK elevated on admission, improved with rehydration efforts and stopped statin, fibrate]. #. SRAVANI over CKD stage III: GFR ranges in 40s since 2019. SRAVANI has improved. Monitor BMP as needed. #. DMII, h/o: A1c of 7.4 on 07/17/2023. Sliding scale insulin in hospital. #. HTN: Chronic, stable. Cont coreg, lisinopril, and lasix as tolerated. #Chronic Pain [facility] Consult placed to pain management for further pain management recs while in hosp Also on gabapentin, lyrica (noted both are gabapentinoids), cymbalta, tylenol for pain. Continue bowel regimen for chronic narcotic use- scheduled sennokot and metamucil, miralax ordered as pt on a pump Pain Consult placed on 07/16-no change in infusion worsened pain from shingles, gabapentin increased to 600mg TID and added PRN tramadol Will need pain follow upon discharge to have pump filled by the end of the month, if not discharged prior will need pain plan in place #Constipation Continue bowel regimen for chronic narcotic use Scheduled sennokot and metamucil, miralax as pt on a morphine pump BM 08/03 #HLD: Hold home statin and fibrate as may contribute to elevated CK and worsening myopathy. Will need f/u w/ PCP as OP for consideration of PCSK9i. BPH/LUTS: continue home meds Diet: Low sodium, DMII, FR 1800ml DVT prophylaxis: Lovenox CODE STATUS: DNR/DNI per POLST form Dispo: SNF pending UE edema improvement. Admission and Anticipated Discharge Date Admission Date: July 16, 2023 Subjective Patient seen and examined at bedside. Patient was lying in bed, on room air, reports feeling better, reports improvement, denies headache or dizziness or chest pain, reports eating okay, moving bowels - continue bowel regimen/modify as appropriate, denies belly pain. Physical Exam Physical Exam: Respiratory: normal respiratory effort, lungs clear to auscultation Cardiovascular: RRR, no murmur, no edema Gastrointestinal (Abdomen): normal bowel sounds, soft, nontender, no hepatosplenomegaly 1+ BLE edema, on room air. 2+ LUE edema Dried and crusted shingles lesion on the left upper buttock. Results & Data Results & Data Vital Signs (Past 12 Hours) Vital Signs Temp Pulse Resp BP Pulse Ox O2 Del Method 08/13/23 15:20 36.6 C 60 16 121/69 97 Room Air 08/13/23 07:09 36.9 C 64 18 138/74 97 Room Air
[2023-08-13] MEDS ORDERED: FUROSEMIDE 40 MG/4 ML VIAL IV ONE (15:45)
[2023-08-13] MEDS: traMADol HCL 50 MG TABLET PO PRN (17:10)
[2023-08-13] MEDS: MINERAL OIL 30 ML UDC PO SCH (20:19)
[2023-08-13] MEDS: TAMSULOSIN HCL 0.4 MG CAP PO SCH (20:20)
[2023-08-13] MEDS: ENOXAPARIN INJ 40 MG/0.4 ML SYR SQ SCH (20:21)
[2023-08-14] MEDS: POLYETHYLENE (MIRALAX) 17 GM PACK PO SCH ×3 (07:33→22:46)
[2023-08-14] MEDS: traMADol HCL 50 MG TABLET PO PRN (07:40)
[2023-08-14] MEDS: ADVANCED PROBIOTIC 1250 MG CAPSULE PO SCH (07:41)
[2023-08-14] MEDS: MULTIVITAMIN TAB PO SCH (07:41)
[2023-08-14] MEDS: carvediloL 25 MG TAB PO SCH ×2 (07:41→22:38)
[2023-08-14] MEDS: ASPIRIN 81 MG ECTAB PO SCH (07:42)
[2023-08-14] MEDS: DULoxetine HCL 20 MG CAP PO SCH (07:42)
[2023-08-14] MEDS: lisinopril 10 MG TAB PO SCH (07:42)
[2023-08-14] MEDS: GABAPENTIN 300 MG CAP PO SCH ×3 (07:42→22:46)
[2023-08-14] MEDS: DOXYCYCLINE HYCLATE 100 MG CAP PO SCH ×2 (07:42→22:46)
[2023-08-14] MEDS: SENNA 8.6 MG TAB PO SCH ×2 (07:43→22:39)
[2023-08-14] MEDS: MUPIROCIN 2% OINT 22 GM TUBE EXT SCH ×3 (07:43→22:40)
[2023-08-14] MEDS: NYSTATIN OINT 15 GM TUBE EXT SCH ×2 (07:43→22:39)
[2023-08-14] MEDS: FINASTERIDE 5 MG TAB PO SCH (08:06)
[2023-08-14] MEDS: PREGABALIN 50 MG CAP PO SCH ×2 (08:06→23:18)
[2023-08-14] MEDS: INSULIN ASPART PER UNIT CHARGE SC SCH ×4 (08:13→22:41)
[2023-08-14] MEDS ORDERED: NALOXONE HCL 0.4 MG/1 ML VIAL/CARP IM ONE (15:27)
[2023-08-14] MEDS ORDERED: NALOXONE HCL 0.4 MG/1 ML VIAL/CARP IV STA (15:35)
[2023-08-14] MEDS ORDERED: OPTIRAY 320 125ml IV ONE (15:41)
[2023-08-14 15:52] LABS: iSTAT Arterial Blood Gas HCO3 26 meg/L (19-24); iSTAT Arterial Blood Gas pCO2 44 mmHg (35-46); iSTAT Arterial Blood Gas pH 7.38 (7.35-7.45); iSTAT Arterial Blood Gas pO2 69 mmHg (80-95); iSTAT Carbon Dioxide 27 mmol/L (24-31); iSTAT Hematocrit 23 % (42-52); iSTAT Hemoglobin 7.8 g/dl (14.0-18.0); iSTAT Potassium 4.6 mmol/L (3.3-5.0); iSTAT Sodium 134 mmol/L (135-144)
[2023-08-14 16:04] LABS: Basophils # (auto) 0.04 K/uL (0.00-0.20); Basophils % (auto) 0.6 %; Eosinophils # (auto) 0.26 K/uL (0.00-0.50); Hematocrit (blood only) 25.5 % (42.0-52.0); Hemoglobin 8.3 g/dl (14.0-18.0); Immature Granulocytes # (auto) 0.04 K/uL (0.01-0.20); Immature Granulocytes % (auto) 0.6 %; Lymphocytes # (auto) 0.92 K/uL (1.20-3.40); Lymphocytes % (auto) 14.2 %; Mean Corpuscular Hemoglobin 30.5 pg (25.0-34.0); Mean Corpuscular Hgb Conc 32.5 g/dL (32.0-36.0); Mean Corpuscular Volume 93.8 fL (80.0-100.0); Mean Platelet Volume 9.7 fL (9.4-12.4); Monocytes # (auto) 0.71 K/uL (0.11-0.59); Neutrophils # (auto) 4.49 K/uL (1.40-6.50); Neutrophils % (auto) 69.6 %; Platelet Count 427 K/uL (130-400); RDW Coefficient of Variation 16.8 % (11.5-14.5); RDW Standard Deviation 56.2 fL (36.4-46.3); Red Blood Count 2.72 M/uL (4.70-6.10); White Blood Count 6.46 K/ul (4.8-10.8)
[2023-08-14 16:08] LABS: Albumin Globulin Ratio 0.9 (0.9-2); Albumin Level 2.8 gm/dl (3.4-5.0); BUN Creatinine Ratio 85.7 (10-20); Bilirubin,Total 0.3 mg/dl (0.2-1.0); Calcium 9.6 mg/dl (8.6-10.3); Creatinine Clr Calc Pharmacy 61.3 ml/min; Est GFR (African American) 70.5 ml/min; Est GFR (Non-African American) 60.8 ml/min; Magnesium 2.2 mg/dl (1.7-2.4); Potassium 4.7 mmol/L (3.5-5.1); Total Protein 5.8 gm/dl (6.0-8.3)
[2023-08-14 16:14] LABS: Troponin I High Sensitivity 8.9 pg/ml (0-20)
--- NOTE | 2023-08-14 16:24 | CT Scan Report ---
HEAD CT NONCONTRAST CT DOSE: HISTORY: Unresponsive. CVA? TECHNIQUE: Multiaxial CT images of the head were performed without the use of intravenous contrast. A utomated exposure control was utilized for this study. A dose lowering technique was utilized adheri ng to the principles of ALARA. Comparison: Head CT 10/22/2018. Findings: Mild mucosal thickening within the left maxillary sinus. The remaining paranasal sinuses an d mastoid air cells are clear. The calvarium and skull base are intact. The ventricles and sulci are within normal limits. There is no mass, hematoma, midline shift, or acute infarct. Impression: No acute intracranial abnormality. ACT 112: Negative or not required by law. Electronically signed by: Salty Martinez M.D. 08/14/2023 4:22 PM
--- NOTE | 2023-08-14 16:25 | CT Scan Report ---
CT ANGIOGRAM OF THE NECK CLINICAL HISTORY: Strokelike symptoms. COMPARISON STUDY: No priors. TECHNIQUE: Following the IV administration of 118 of Optiray 320, CT angiogram of the neck was perfor med from the aortic arch to the skull base. Images are reviewed in the axial, sagittal, and coronal p lanes. 3-D MIPS images are created and assessed. IV contrast was administered without complication. A ll measurements were calculated based on NASCET criteria. A dose lowering technique was utilized adh ering to the principles of ALARA. The examination is degraded by motion artifact. CT DOSE: 1909.08 mGy.cm FINDINGS: Thoracic aorta: There is atherosclerotic calcification of the thoracic aorta. Visualized portions of the thoracic aorta are normal in caliber. The aortic arch demonstrates standard 3-vessel anatomy. Right carotid arterial system: The right common carotid artery is patent noting atherosclerotic plaqu e and irregularity. There is a dense atherosclerotic plaque within the carotid bulb which causes less than 50% luminal narrowing at the origin of the right internal carotid artery. The remainder of the right internal carotid artery is widely patent. There is high-grade stenosis of the origin of the rig ht external carotid artery. Left carotid arterial system: The left common carotid artery is widely patent noting atherosclerotic plaque and irregularity. 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 There is atherosclerotic plaque in the carotid. There is less than 50% focal denis nosis of the proximal ICA seen on image #[id number]. In the distal portions of the internal carotid artery are patent. This could represent advanced atherosclerotic plaque and irregularity. Vertebral arteries: The vertebral arteries are patent bilaterally noting right-sided dominance. There is at least moderate focal stenosis of the right vertebral artery at the level of C4-C5 seen on imag e #220. Subclavian arteries: Widely patent bilaterally noting atherosclerotic plaque and irregularity. Jugular veins: Widely patent bilaterally. Brain parenchyma: The visualized brain parenchyma the skull base is within normal limits. Lung apices: Partially visualized upper lobe lung parenchyma appears clear. Soft tissues: The visualized pharyngeal soft tissues are normal in appearance noting angiographic pha se technique. The oropharyngeal airway appears widely patent. There are calcified sialoliths within t he parotid glands. The salivary glands are otherwise normal in appearance. The thyroid gland is heter ogeneous. No cervical lymphadenopathy is seen. The esophagus appears circumferentially thick walled. Skeletal structures: The skeletal structures are osteopenic. The visualized calvarium at the skull ba se appears intact. The imaged cervical spine is within normal limits. The patient is status post midl ine sternotomy. Sinuses and mastoids: There is trace mucosal thickening within the right maxillary antrum. The mastoi d air cells appear well-pneumatized. IMPRESSION: 1. Atherosclerotic plaque with foci of less than 50% stenosis involving both internal carotid arterie s. 2. There is at least moderate focal stenosis of the mid right vertebral artery. 3. 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 4. Additional findings as above. ACT 112: Negative or not required by law. Electronically signed by: Alejandro Sandoval M.D. 08/14/2023 4:24 PM
--- NOTE | 2023-08-14 16:31 | CT Scan Report ---
HEAD CTA HISTORY: Unresponsive. cva? TECHNIQUE: Multiaxial CT images of the head were performed following the intravenous administration o f contrast to evaluate the major cerebral vessels. 3D/MIP images were also obtained. Sagittal and co colette reformats were reviewed. A dose lowering technique was utilized adhering to the principles of A ROXANA. COMPARISON: Head CT 08/14/2023. FINDINGS: The major dural venous sinuses are patent. There is a hypoplastic distal left vertebral art moncho. Moderate focal narrowing within the intracranial distal right vertebral artery due to the calcif ied plaque. This demonstrates up to 50% stenosis. The basilar artery is widely patent. Moderate calci fied plaque within the bilateral intracranial internal carotid arteries resulting in [id number] multifocal stenosis on the right and severe focal stenosis of up to 75% within the cavernous segment of the left intracranial internal carotid artery on image 107. There is a hypoplastic left A1 segmen t. Otherwise, the bilateral ACAs and bilateral MCAs show no significant stenosis, occlusion, aneurysm . Punctate focus of calcification within the distal branches of the left MCA on image 194 is likely c hronic. The right AUTOMATION ENGINEERING TECHNICIAN is widely patent. There is focal moderate to severe stenosis within the proxima l left AUTOMATION ENGINEERING TECHNICIAN on image 108. IMPRESSION: 1. No areas of arterial occlusion to suggest an acute infarct. 2. Multifocal areas of moderate to severe stenosis within the intracranial vasculature as described a reyes likely due to chronic atherosclerotic disease. ACT 112: Negative or not required by law. Electronically signed by: Salty Martinez M.D. 08/14/2023 4:30 PM
[2023-08-14] MEDS ORDERED: PHARMACIST DISCHARGE MED REC CONSULT PRN (17:08)
--- NOTE | 2023-08-14 17:21 | Hospitalist Progress Note ---
Date of Service August 14, 2023 Assessment & Plan (1) Stroke-like episode: Plan: Patient previously alert and oriented. Suddenly became unresponsive. Last well know around 2pm.baseline minimal movement of b/l extremities. Wheel chair bound and nurses have to feed him. On morphine Pump. IM narcan 0.2mg as patient iv line not working. IT was 3:30pm by that time IM narcan didnot helped much. So stroke alert was called.After CT scan was done patient woke up. Initially he was able to tell his name and knows his but thought he was in storage. Later could tell he is hospital.[place] St[facility] Neurologist evaluated the patient. As patient is mostly back to baseline except some confusion with dates thought probably medication related but wanted to do MRI head and also eeg for now and consult neurology in am. And to avoid sedatives.Will monitor in med/tele for now. Progress notes by : #. Lower extremity edema #. Left UE edema Pt with significant lower extremity edema and left UE edema Chest xray with noted cardiomegaly; Echo 60% EF, pHTN, LVH Swelling near resolved LE on exam but is present in his hands/upper extremities now, likely related to poor movement/weakness, no reported heart failure LUE doppler negative for acute process. Doppler US LLE with low suspicion for clot/ Completed course of antibiotics for presumptive cellulitis on admission. Encourage L U extremity elevation and ambulation OOB to chair as tolerated. Swelling exacerbated by poor mobility. FR 1800 ml; iv lasix (give after clinical assessment on daily basis) w/ freq intermittent cath; increase protein content in diet. PO lasix on hold. Monitor and replete electrolytes. Mobilize LUE frequently, elevate above level of heart to help w/ swelling. #Penile ulcer *improving Purulent discharge noted on ulcer of foreskin near lawson catheter Urology consulted - suspect possible balanitis of the penis/foreskin which is likely both yeast and bacterial Wound culture MRSA--transitioned to doxy from augmentin, EOT 08/15, mupirocin topically Continue CIC to prevent further foreskin compression/irritation q6h . Kandice GONZALES'tereza. #Ambulatory Dysfunction, myopathy #thoracic myelopathy #Failed Laminectomy syndrome Freq falls happening at home, pt with bruising on chest CK elevated, then downtrended CM consult for placement needs in this situation Ortho evaluated patient given left leg sensory loss and bilateral motor weakness: no surgical intervention given comorbidities stopped statin, fenofibrate and allopurinol and feels ? improved. Will likely need pcsk9i, pt to f/u w/ PCP office to initiate on this. Pt made aware. PT/OT Pending placement Need to continue turning patient q2h and helping to prevent breakdown on scrotum which is also swollen. Expect myopathy to be terminal manager, but may improve over the next several weeks. #Disseminated Zoster New lesions on buttock c/w herpes zoster , Airborne precautions VZV/HSV swabs of lesions obtained, pending since 08/03 Plan for 14 days total of IV if positive EOT 08/10 - completed course. [place] capsaicin cream for neuralgia lesions dries and crusted on exam. #. Rhabdomyolysis *resolved [CK elevated on admission, improved with rehyd ration efforts and stopped statin, fibrate]. #. SRAVANI over CKD stage III: GFR ranges in 40s since 2019. SRAVANI has improved. Monitor BMP as needed. #. DMII, h/o: A1c of 7.4 on 07/17/2023. Sliding scale insulin in hospital. #. HTN: Chronic, stable. Cont coreg, lisinopril, and lasix as tolerated. #Chronic Pain Has morphine pump managed by [facility] Consult placed to pain management for further pain management recs while in hosp Also on gabapentin, lyrica (noted both are gabapentinoids), cymbalta, tylenol for pain. Continue bowel regimen for chronic narcotic use- scheduled sennokot and metamucil, miralax ordered as pt on a pump Pain Consult placed on 07/16-no change in infusion worsened pain from shingles, gabapentin increased to 600mg TID and added PRN tramadol Will need pain follow upon discharge to have pump filled by the end of the month, if not discharged prior will need pain plan in place #Constipation Continue bowel regimen for chronic narcotic use Scheduled sennokot and metamucil, miralax as pt on a morphine pump BM 08/03 #HLD: Hold home statin and fibrate as may contribute to elevated CK and worsening myopathy. Will need f/u w/ PCP as OP for consideration of PCSK9i. BPH/LUTS: continue home meds Diet: Low sodium, DMII, FR 1800ml DVT prophylaxis: Lovenox CODE STATUS: DNR/DNI per POLST form Dispo: SNF pending UE edema improvement. Admission and Anticipated Discharge Date Admission Date: July 16, 2023 Subjective code purple was called as patient became suddenly unresponsive vitals ok He was alert and oriented but suddenly became unresponsive im Narcan 0.2mg given with no improvement stroke alert was called. LAter patinet woke up and seems getting closer to baseline Review of Systems Review of Systems: Unobtainable due to reduced consciousness Physical Exam Physical Exam: General- currently not in distress Head- atraumatic Eyes- EOMI ENT- oropharynx clear Neck- supple, no JVD. Lungs- clear to auscultation no wheezing or crackles. Heart- regular rhythm; no murmur, no gallop. Abdomen- normal bowel sounds, soft, nontender, no distension. Extremities- b/l extremity edema present. Neuro- alert, oriented x 3; EOMI; no facial palsy; no dysarthria; minimal movements of extremities. Results & Data Results & Data Vital Signs (Past 12 Hours) Vital Signs Temp Pulse Pulse Resp BP Pulse Ox O2 Del Method 08/14/23 16:20 36.9 C 64 20 126/56 L 95 Room Air 08/14/23 15:53 66 20 141/73 H 96 Room Air 08/14/23 15:49 13 95 Room Air 08/14/23 15:09 36.5 C 62 18 118/54 L 95 Room Air 08/14/23 07:40 Room Air 08/14/23 07:38 36.6 C 54 L 18 113/55 L 94 Room Air FiO2 08/14/23 16:20 08/14/23 15:53 08/14/23 15:49 21 08/14/23 15:09 08/14/23 07:40 08/14/23 07:38 Diagnostic Findings Laboratory Results WBC 6.46 K/ul (4.8-10.8) 08/14/23 15:30 RBC 2.72 M/uL (4.70-6.10) L 08/14/23 15:30 Hgb 8.3 g/dl (14.0-18.0) L 08/14/23 15:30 POC Hgb 7.8 g/dl (14.0-18.0) L 08/14/23 15:37 Hct 25.5 % (42.0-52.0) L 08/14/23 15:30 POC Hct 23 % (42-52) L 08/14/23 15:37 MCV 93.8 fL (80.0-100.0) 08/14/23 15:30 MCH 30.5 pg (25.0-34.0) 08/14/23 15: MCHC 32.5 g/dL (32.0-36.0) 08/14/23 15:30 RDW Std Deviation 56.2 fL (36.4-46.3) H 08/14/23 15:30 RDW Coeff of Poly 16.8 % (11.5-14.5) H 08/14/23 15: Plt Count 427 K/uL (130-400) H 08/14/23 15:30 MPV 9.7 fL (9.4-12.4) 08/14/23 15:30 Immature Gran % (Auto) 0.6 % 08/14/23 15:30 Neut % (Auto) 69.6 % 08/14/23 15:30 Lymph % (Auto) 14.2 % 08/14/23 15:30 [place] % (Auto) 11.0 % 08/14/23 15:30 Eos % (Auto) 4.0 % 08/14/23 15:30 Baso % (Auto) 0.6 % 08/14/23 15:30 Neut # (Auto) 4.49 K/uL (1.40-6.50) 08/14/23 15:30 Lymph # (Auto) 0.92 K/uL (1.20-3.40) L 08/14/23 15:30 [place] # (Auto) 0.71 K/uL (0.11-0.59) H 08/14/23 15:30 Eos # (Auto) 0.26 K/uL (0.00-0.50) 08/14/23 15:30 Baso # (Auto) 0.04 K/uL (0.00-0.20) 08/14/23 15:30 Immature Gran # (Auto) 0.04 K/uL (0.01-0.20) 08/14/23 15:30 Absolute Nucleated RBC 0.03 K/uL (0.00-0.12) 08/12/23 06:55 Nucleated RBC % (auto) 0.4 % 08/12/23 06:55 POC pH 7.38 (7.35-7.45) 08/14/23 15:37 POC pCO2 44 mmHg (35-46) 08/14/23 15:37 POC pO2 69 mmHg (80-95) L 08/14/23 15:37 POC HCO3 26 mitchell/L (19-24) H 08/14/23 15:37 POC Total CO2 27 mmol/L (24-31) 08/14/23 15:37 POC Base Excess 1.0 mitchell/L (-9-1.8) 08/14/23 15:37 POC ABG O2 Sat 93.0 % (90-95) 08/14/23 15:37 POC Sodium 134 mmol/L (135-144) L 08/14/23 15:37 Sodium 135 mmol/L (136-145) L 08/14/23 15:30 POC Potassium 4.6 mmol/L (3.3-5.0) 08/14/23 15:37 Potassium 4.7 mmol/L (3.5-5.1) 08/14/23 15:30 Chloride 101 mmol/L (98-107) 08/14/23 15:30 Carbon Dioxide 28 mmol/L (21-32) 08/14/23 15:30 Anion Gap 6 (3-11) 08/14/23 15:30 BUN 96 mg/dl (6-23) H 08/14/23 15:30 Creatinine 1.12 mg/dl (0.6-1.4) 08/14/23 15:30 Est Cr Clr Drug Dosing 61.3 ml/min 08/14/23 15:30 Est GFR ( Amer) 70.5 ml/min 08/14/23 15:30 Est GFR (Non-Af Amer) 60.8 ml/min 08/14/23 15:30 BUN/Creatinine Ratio 85.7 (10-20) H 08/14/23 15:30 Glucose 91 mg/dl (70-99(Fasting)) 08/14/23 15:30 POC Glucose 103 mg/dl (70-99) H 08/14/23 16:57 Estimat Average Glucose 166 mg/dl 07/17/23 04:38 Hemoglobin A1c 7.4 % (4.5-5.6) H 07/17/23 04:38 Calcium 9.6 mg/dl (8.6-10.3) 08/14/23 15:30 Ionized Calcium 1.29 mmol/L (1.12-1.32) 07/19/23 04:56 Phosphorus 3.2 mg/dl (2.5-4.9) 08/11/23 07:30 Magnesium 2.2 mg/dl (1.7-2.4) 08/14/23 15:30 Total Bilirubin 0.3 mg/dl (0.2-1.0) 08/14/23 15:30 AST 16 U/L (13-39) 08/14/23 15:30 ALT 22 U/L (7-52) 08/14/23 15:30 Alkaline Phosphatase 76 U/L (34-104) 08/14/23 15:30 Ammonia 36.0 umol/L (18-72) 08/14/23 15:58 Total Creatine Kinase 338 U/L (30-223) H 07/23/23 07:10 Troponin I High Sens 8.9 pg/ml (0-20) 08/14/23 15:30 B-Natriuretic Peptide 239 pg/ml (0-100) H 07/16/23 13:50 Total Protein 5.8 gm/dl (6.0-8.3) L 08/14/23 15:30 Albumin 2.8 gm/dl (3.4-5.0) L 08/14/23 15:30 Globulin 3.0 gm/dl (2.5-4.0) 08/14/23 15:30 Albumin/Globulin Ratio 0.9 (0.9-2) 08/14/23 15:30 Triglycerides 255 mg/dl (0-150) H 08/12/23 06:55 Cholesterol 210 mg/dl (0-200) H 08/12/23 06:55 LDL Cholesterol, Calc 128 mg/dl 08/12/23 06:55 VLDL Cholesterol, Calc 51 mg/dl (0-30) H 08/12/23 06:55 HDL Cholesterol 31 mg/dl 08/12/23 06:55 Cholesterol/HDL Ratio 6.8 (0-5) H 08/12/23 06:55 TSH 4.098 uIu/ml (0.300-4.500) 07/16/23 13:50 Urine Color Yellow 08/05/23 22:26 Urine Appearance Clear (Clear) 08/05/23 22:26 Urine pH 5.0 (4.5-7.5) 08/05/23 22:26 Ur Specific [place] 1.018 (1.000-1.030) 08/05/23 22:26 Urine Protein Negative (Negative) 08/05/23 22:26 Urine Glucose (UA) Negative (Negative) 08/05/23 22: Urine Ketones Negative (Negative) 08/05/23 22: Urine Blood Negative (Negative) 08/05/23 22: Urine Nitrite Negative (Negative) 08/05/23 22: Urine Bilirubin Negative (Negative) 08/05/23 22: Urine Urobilinogen Negative (Negative) 08/05/23 22:26 Ur Leukocyte Esterase Trace (Negative) H 08/05/23 22:26 Urine WBC (Auto) 1-5 /hpf (0-5) 08/05/23 22:26 Urine RBC (Auto) 5-10 /hpf (0-4) H 08/05/23 22:26 U Hyaline Cast (Auto) 5-10 /lpf (0-5) H 08/05/23 22:26 U Epithel Cells (Auto) 5-10 /lpf (0-5) H 08/05/23 22:26 Urine Bacteria (Auto) Negative (Negative) 08/05/23 22:26 Ur Renal Epithelial Cell Not Reportable 07/22/23 Unknown Granular Casts 1-5 /lpf (0) H 08/05/23 22:26 Urine Yeast Not Reportable 07/22/23 Unknown Herpes Simplex Culture SEE NOTE 08/03/23 04:12 VZV Culture NOT ISOLATED 08/03/23 04:12 Viral Specimen Source BUTTOCK 08/03/23 04:12 Impressions Chest X-Ray 07/16/23 13:43 XR chest 1V portable CLINICAL HISTORY: weakness, fluid retention TECHNIQUE: Single frontal radiograph of the chest was obtained. Comparison: Comparison is made to chest radiograph 02/25/2022 FINDINGS: Median sternotomy wires are unchanged. Cardiomegaly is noted. The lungs are clear. No evidence of pleural effusion or pneumothorax. IMPRESSION: No acute chest disease. Cardiomegaly is noted. ACT 112: Negative or not required by law. Electronically signed by: Harrison Kent M.D. 07/16/2023 2:35 PM Venous Doppler Study 07/16/23 18:30 US venous doppler LE LT CLINICAL HISTORY: Lower extremity swelling, pain and redness TECHNIQUE: Left lower extremity real-time compression venous ultrasound with Color Doppler imaging. Utilizing real-time ultrasonic imaging multiple real time high-resolution ultrasonic images with compression and noncompression maneuvers of the deep venous system in addition to color doppler imaging were performed from the common femoral vein through the proximal calf veins. COMPARISON: Comparison is made to lower extremity ultrasound 10/22/2018 FINDINGS/IMPRESSION: Currently there is normal compressibility of the deep venous system from the common femoral vein through the proximal calf veins. The popliteal vein was not visualized, exam is limited by patient positioning and movement. ACT 112: Negative or not required by law. Electronically signed by: Harrison Kent M.D. 07/16/2023 7:38 PM Extremity Venous Study 07/19/23 14:30 ULTRASOUND LEFT UPPER EXTREMITY VENOUS CLINICAL HISTORY: Left arm swelling. COMPARISON STUDY: No priors. TECHNIQUE: Real-time, grayscale, and color Doppler sonography of the deep veins of the left upper extremity is performed. Compression and augmentation were utilized. FINDINGS: There is no sonographic evidence of deep venous thrombosis identified in the left upper extremity. The left internal jugular, axillary, and brachial veins are patent and normally compressible. Normal venous waveforms and augmentation are seen within the left subclavian vein. The cephalic and basilic veins are clear. The radial vein is patent. The ulnar vein is not well- visualized. IMPRESSION: There is no sonographic evidence of deep venous thrombosis identified in the left upper extremity. ACT 112: Negative or not required by law. Electronically signed by: Alejandro Sandoval M.D. 07/19/2023 11:47 PM KUB X-Ray 08/10/23 16:41 KUB HISTORY: ? Constipation COMPARISON: KUB 07/22/2023. FINDINGS: The bowel gas pattern is unremarkable. There are no dilated loops of small bowel to suggest an obstruction. Extensive lumbar spinal fusion hardware again noted. There is a left lower quadrant electronic device, unchanged. The heart remains enlarged. There are poststernotomy changes. Mild dilated gas- filled loop of bowel within the upper abdomen. This appears to represent the stomach. There is mild fecal retention. No pneumoperitoneum or pneumatosis. IMPRESSION: 1. Mild fecal retention. 2. Mild gaseous distention of the stomach. 3. No evidence for a small bowel obstruction. ACT 112: Negative or not required by law. Electronically signed by: Salty Martinez M.D. 08/10/2023 7:[address] 08/14/23 15:[address] DOSE: HISTORY: Unresponsive. CVA? TECHNIQUE: Multiaxial CT images of the head were performed without the use of intravenous contrast. Automated exposure control was utilized for this study. A dose lowering technique was utilized adhering to the principles of ALARA. Comparison: Head CT 10/22/2018. Findings: Mild mucosal thickening within the left maxillary sinus. The remaining paranasal sinuses and mastoid air cells are clear. The calvarium and skull base are intact. The ventricles and sulci are within normal limits. There is no mass, hematoma, midline shift, or acute infarct. Impression: No acute intracranial abnormality. ACT 112: Negative or not required by law. Electronically signed by: Salty Martinez M.D. 08/14/2023 4:22 PM Head CTA 08/14/23 15:32 HEAD CTA HISTORY: Unresponsive. cva? TECHNIQUE: Multiaxial CT images of the head were performed following the intravenous administration of contrast to evaluate the major cerebral vessels. 3D/MIP images were also obtained. Sagittal and coronal reformats were reviewed. A dose lowering technique was utilized adhering to the principles of ALARA. COMPARISON: Head CT 08/14/2023. FINDINGS: The major dural venous sinuses are patent. There is a hypoplastic distal left vertebral artery. Moderate focal narrowing within the intracranial distal right vertebral artery due to the calcified plaque. This demonstrates up to 50% stenosis. The basilar artery is widely patent. Moderate calcified plaque within the bilateral intracranial internal carotid arteries resulting in [id number] multifocal stenosis on the right and severe focal stenosis of up to 75% within the cavernous segment of the left intracranial internal carotid artery on image 107. There is a hypoplastic left A1 segment. Otherwise, the bilateral ACAs and bilateral MCAs show no significant stenosis, occlusion, aneurysm. Punctate focus of calcification within the distal branches of the left MCA on image 194 is likely chronic. The right GRA[employer] DRIER OPERATOR is widely patent. There is f ocal moderate to severe stenosis within the proximal left GRAIN DRIER OPERATOR on image 108. IMPRESSION: 1. No areas of arterial occlusion to suggest an acute infarct. 2. Multifocal areas of moderate to severe stenosis within the intracranial vasculature as described above likely due to chronic atherosclerotic disease. ACT 112: Negative or not required by law. Electronically signed by: Salty Martinez M.D. 08/14/2023 4:30 PM Neck CTA 08/14/23 15:32 CT ANGIOGRAM OF THE NECK CLINICAL HISTORY: Strokelike symptoms. COMPARISON STUDY: No priors. TECHNIQUE: Following the IV administration of 118 of Optiray 320, CT angiogram of the neck was performed from the aortic arch to the skull base. Images are reviewed in the axial, sagittal, and coronal planes. 3-D MIPS images are created and assessed. IV contrast was administered without complication. All measurements were calculated based on NASCET criteria. A dose lowering technique was utilized adhering to the principles of ALARA. The examination is degraded by motion artifact. CT DOSE: 1909.08 mGy.cm FINDINGS: Thoracic aorta: There is atherosclerotic calcification of the thoracic aorta. Visualized portions of the thoracic aorta are normal in caliber. The aortic arch demonstrates standard 3-vessel anatomy. Right carotid arterial system: The right common carotid artery is patent noting atherosclerotic plaque and irregularity. There is a dense atherosclerotic plaque within the carotid bulb which causes less than 50% luminal narrowing at the origin of the right internal carotid artery. The remainder of the right internal carotid artery is widely patent. There is high-grade stenosis of the origin of the right external carotid artery. Left carotid arterial system: The left common carotid artery is widely patent noting atherosclerotic plaque and irregularity. 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 There is atherosclerotic plaque in the carotid. There is less than 50% focal stenosis of the proximal ICA seen on image #2060. In the distal portions of the internal carotid artery are patent. This could represent advanced atherosclerotic plaque and irregularity. Vertebral arteries: The vertebral arteries are patent bilaterally noting right- sided dominance. There is at least moderate focal stenosis of the right vertebral artery at the level of C4-C5 seen on image #220. Subclavian arteries: Widely patent bilaterally noting atherosclerotic plaque and irregularity. Jugular veins: Widely patent bilaterally. Brain parenchyma: The visualized brain parenchyma the skull base is within normal limits. Lung apices: Partially visualized upper lobe lung parenchyma appears clear. Soft tissues: The visualized pharyngeal soft tissues are normal in appearance noting angiographic phase technique. The oropharyngeal airway appears widely patent. There are calcified sialoliths within the parotid glands. The salivary glands are otherwise normal in appearance. The thyroid gland is heterogeneous. No cervical lymphadenopathy is seen. The esophagus appears circumferentially thick walled. Skeletal structures: The skeletal structures are osteopenic. The visualized calvarium at the skull base appears intact. The imaged cervical spine is within normal limits. The patient is status post midline sternotomy. Sinuses and mastoids: There is trace mucosal thickening within the right maxillary antrum. The mastoid air cells appear well-pneumatized. IMPRESSION: 1. Atherosclerotic plaque with foci of less than 50% stenosis involving both internal carotid arteries. 2. There is at least moderate focal stenosis of the mid right vertebral artery. 3. 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 4. Additional findings as above. ACT 112: Negative or not required by law. Electronically signed by: Alejandro Sandoval M.D. 08/14/2023 4:24 PM
[2023-08-14] MEDS: SODIUM CHLORIDE 0.9% 1,000 ML IV SCH (17:26)
[2023-08-14] MEDS: ENOXAPARIN INJ 40 MG/0.4 ML SYR SQ SCH (22:46)
[2023-08-14] MEDS: MINERAL OIL 30 ML UDC PO SCH (22:46)
[2023-08-14] MEDS: TAMSULOSIN HCL 0.4 MG CAP PO SCH (22:47)
[2023-08-15] MEDS: SODIUM CHLORIDE 0.9% 1,000 ML IV SCH ×2 (04:00→14:21)
[2023-08-15 05:15] LABS: Basophils # (auto) 0.02 K/uL (0.00-0.20); Basophils % (auto) 0.4 %; Eosinophils # (auto) 0.28 K/uL (0.00-0.50); Hematocrit (blood only) 23.9 % (42.0-52.0); Hemoglobin 7.7 g/dl (14.0-18.0); Immature Granulocytes # (auto) 0.04 K/uL (0.01-0.20); Immature Granulocytes % (auto) 0.7 %; Lymphocytes # (auto) 0.97 K/uL (1.20-3.40); Lymphocytes % (auto) 17.4 %; Mean Corpuscular Hemoglobin 29.8 pg (25.0-34.0); Mean Corpuscular Hgb Conc 32.2 g/dL (32.0-36.0); Mean Corpuscular Volume 92.6 fL (80.0-100.0); Mean Platelet Volume 9.5 fL (9.4-12.4); Monocytes % (auto) 8.9 %; Neutrophils # (auto) 3.78 K/uL (1.40-6.50); Neutrophils % (auto) 67.6 %; Platelet Count 394 K/uL (130-400); RDW Coefficient of Variation 16.8 % (11.5-14.5); RDW Standard Deviation 56.6 fL (36.4-46.3); Red Blood Count 2.58 M/uL (4.70-6.10); White Blood Count 5.59 K/ul (4.8-10.8)
[2023-08-15 05:31] LABS: Calcium 9.5 mg/dl (8.6-10.3); Potassium 4.5 mmol/L (3.5-5.1)
[2023-08-15 05:36] LABS: BUN Creatinine Ratio 97.9 (10-20); Chol HDL Ratio 5.7 (0-5); Est GFR (African American) 87.2 ml/min; Est GFR (Non-African American) 75.2 ml/min
[2023-08-15 06:52] LABS: Hypochromasia Present; Polychromasia 1+
[2023-08-15 07:28] LABS: Estimated Average Glucose 157 mg/dl; Hemoglobin A1C 7.1 % (4.5-5.6)
--- NOTE | 2023-08-15 09:01 | XRay Report ---
KUB CLINICAL HISTORY: MRI clearance. Pain pump. FINDINGS: 3 AP supine abdominal radiographs are compared to study dated 08/10/2023. Correlation is ma sly with abdominal CT dated 05/22/2019. There is a nonobstructed abdominal bowel gas pattern. A pain pu mp device projects over the left lower quadrant. The catheter tip projects over the lower thoracic re gion at T11-T12. Small metallic fiducials project over the prostate gland. No additional radiodense/m etallic foreign body is seen. There are no abnormal abdominal calcifications. The skeletal structures are osteopenic and appear intact. Spondylotic and extensive postsurgical change is noted in the spin e. Cortical lag screws transfix the right sacroiliac joint. IMPRESSION: 1. A pain pump device and intrathecal catheter are in place as above. 2. Metallic fiducials project over the prostate gland. 3. No bowel obstruction. Electronically signed by: Alejandro Sandoval M.D. 08/15/2023 9:00 AM
--- NOTE | 2023-08-15 09:45 | Magnetic Resonance Report ---
MRI OF THE BRAIN WITHOUT IV CONTRAST CLINICAL HISTORY: Upper and lower extremity swelling. Strokelike symptoms. COMPARISON STUDY: CT of the brain dated 08/14/2023. MRI of the brain dated 10/22/2018. TECHNIQUE: MRI of the brain was performed utilizing various T1 and T2-weighted sequences in the axial , sagittal, and coronal planes. IV contrast was not administered for this examination. The examinatio n is degraded by motion artifact. FINDINGS: Brain parenchyma: There is age-related involutional change noting mild subcortical and periventricula r microangiopathic disease. There is no hemorrhage or mass effect. There is no restricted diffusion t o suggest acute ischemia. Hicks-white matter differentiation is preserved. No extra-axial fluid collec tion is seen. The cerebellar tonsils are normal in configuration. Ventricles, sulci, and cisterns: Prominent secondary to involutional change. Pituitary and sella: Unremarkable. Intracranial vasculature: Normal flow voids are maintained at the skull base. Orbits: The bony orbits are grossly intact. Orbital contents are normal in appearance. Sinuses and mastoids: Clear. Calvarium: Unremarkable. Cervical cord: Partially visualized cervical spinal cord is normal in morphology and signal intensity . IMPRESSION: No acute intracranial abnormality. ACT 112: Negative or not required by law. Electronically signed by: Alejandro Sandoval M.D. 08/15/2023 9:43 AM
[2023-08-15] MEDS: FINASTERIDE 5 MG TAB PO SCH (09:47)
[2023-08-15] MEDS: carvediloL 25 MG TAB PO SCH (09:47)
[2023-08-15] MEDS: MULTIVITAMIN TAB PO SCH (09:47)
[2023-08-15] MEDS: ASPIRIN 81 MG ECTAB PO SCH (09:47)
[2023-08-15] MEDS: GABAPENTIN 300 MG CAP PO SCH ×3 (09:47→22:55)
[2023-08-15] MEDS: DULoxetine HCL 20 MG CAP PO SCH (09:47)
[2023-08-15] MEDS: DOXYCYCLINE HYCLATE 100 MG CAP PO SCH (09:48)
[2023-08-15] MEDS: ADVANCED PROBIOTIC 1250 MG CAPSULE PO SCH (09:48)
[2023-08-15] MEDS: SENNA 8.6 MG TAB PO SCH ×2 (09:48→22:54)
[2023-08-15] MEDS: lisinopril 10 MG TAB PO SCH (09:48)
[2023-08-15] MEDS: POLYETHYLENE (MIRALAX) 17 GM PACK PO SCH ×3 (09:48→22:54)
[2023-08-15] MEDS: NYSTATIN OINT 15 GM TUBE EXT SCH ×2 (09:49→22:56)
[2023-08-15] MEDS: MUPIROCIN 2% OINT 22 GM TUBE EXT SCH ×3 (09:49→22:56)
[2023-08-15] MEDS: PREGABALIN 50 MG CAP PO SCH ×2 (09:54→22:57)
[2023-08-15] MEDS: INSULIN ASPART PER UNIT CHARGE SC SCH ×4 (10:01→22:53)
--- NOTE | 2023-08-15 18:20 | Hospitalist Progress Note ---
Date of Service August 15, 2023 Assessment & Plan (1) Stroke-like episode: Plan: 1) Stroke-like episode: Plan: Yesterday 08/14/23 Suddenly became unresponsive. Last well know around 2pm.baseline minimal movement of b/l extremities. Wheel chair bound and nurses have to feed him. On morphine Pump. IM narcan 0.2mg as patient iv line not working. IT was 3:30pm by that time IM narcan didnot helped much. So stroke alert was called.After CT scan was done patient woke up. Initially he was able to tell his name and knows his but thought he was in storage. Later could tell he is hospital.[facility] Stroke Neurologist evaluated the patient. As patient is mostly back to baseline except some confusion with dates thought probably medication related but wanted to do MRI head and also eeg for now and consult neurology in am. And to avoid sedatives.Held tramadol. Will monitor in med/tele for now. 08/15/13 Patinet back to baseline. Alert and oriented MRI head no acute findings await eeg. Hospital course so far: #. Lower extremity edema #. Left UE edema Pt with significant lower extremity edema and left UE edema Chest xray with noted cardiomegaly; Echo 60% EF, pHTN, LVH Swelling near resolved LE on exam but is present in his hands/upper extremities now, likely related to poor movement/weakness, no reported heart failure LUE doppler negative for acute process. Doppler US LLE with low suspicion for clot/ Completed course of antibiotics for presumptive cellulitis on admission. Encourage L U extremity elevation and ambulation OOB to chair as tolerated. Swelling exacerbated by poor mobility. FR 1800 ml; iv lasix (give after clinical assessment on daily basis) w/ freq intermittent cath; increase protein content in diet. PO lasix on hold. Monitor and replete electrolytes. Mobilize LUE frequently, elevate above level of heart to help w/ swelling. currently not on diuretics #Penile ulcer *improving Purulent discharge noted on ulcer of foreskin near lawson catheter Urology consulted - suspect possible balanitis of the penis/foreskin which is likely both yeast and bacterial Wound culture MRSA--transitioned to doxy from augmentin, EOT 08/15, mupirocin topically Continue CIC to prevent further foreskin compression/irritation q6h . Kandice Mcwilliams. #Ambulatory Dysfunction, myopathy #thoracic myelopathy #Failed Laminectomy syndrome Freq falls happening at home, pt with bruising on chest CK elevated, then downtrended CM consult for placement needs in this situation Ortho evaluated patient given left leg sensory loss and bilateral motor weakness: no surgical intervention given comorbidities stopped statin, fenofibrate and allopurinol and feels ? improved. Will likely need pcsk9i, pt to f/u w/ PCP office to initiate on this. Pt made aware. PT/OT Pending placement Need to continue turning patient q2h and helping to prevent breakdown on scrotum which is also swollen. Expect myopathy to be prison, but may improve over the next several weeks. Awaiting placement #Disseminated Zoster New lesions on buttock c/w herpes zoster , Airborne precautions VZV/HSV swabs of lesions obtained, pending since 08/03 Plan for 14 days total of IV if positive EOT 08/10 - completed course. [place] capsaicin cream for neuralgia lesions dries and crusted on exam. #. Rhabdomyolysis *resolved [CK elevated on admission, improved with rehydration efforts and stopped statin, fibrate]. #. SRAVANI over CKD stage III: GFR ranges in 40s since 2019. SRAVANI has improved. Monitor BMP as needed.Cr 0.9 today #. DMII, h/o: A1c of 7.4 on 07/17/2023. Sliding scale insulin in hospital.Will monitor #. HTN: Chronic, stable. Currently on coreg, lisinopril, . #Chronic Pain Has morphine pump [facility] Consult placed to pain management for further pain management recs while in hosp Also on gabapentin, lyrica (noted both are gabapentinoids), cymbalta, tylenol for pain. Continue bowel regimen for chronic narcotic use- scheduled sennokot and metamucil, miralax ordered as pt on a pump Pain Consult placed on 07/16-no change in infusion worsened pain from shingles, gabapentin increased to 600mg TID and added PRN tramadol Will need pain follow upon discharge to have pump filled by the end of the month, if not discharged prior will need pain plan in place Currently held tramadol #Constipation Continue bowel regimen for chronic narcotic use Scheduled sennokot and metamucil, miralax as pt on a morphine pump Will monitor #HLD: Hold home statin and fibrate as may contribute to elevated CK and worsening myopathy. Will need f/u w/ PCP as OP for consideration of PCSK9i. BPH/LUTS: continue home meds Diet: Low sodium, DMII, FR 1800ml DVT prophylaxis: Lovenox CODE STATUS: DNR/DNI per POLST form Dispo: SNF pending UE edema improvement. Admission and Anticipated Discharge Date Admission Date: July 16, 2023 Subjective Resting comfortably denies any headache or blurred vision no runny nose or sore throat no cough no difficulty swallowing has weakness in extremities which he says nothing new afebrile no nausea or abdominal pain Review of Systems Review of Systems: All systems reviewed & are unremarkable except as noted in HPI & below Physical Exam Physical Exam: General- not in distress Head- atraumatic Eyes- EOMI ENT- oropharynx clear Neck- supple, no JVD. Lungs- clear to auscultation no wheezing or crackles. Heart- regular rhythm; no murmur, no gallop. Abdomen- normal bowel sounds, soft, nontender, no distension. Extremities- b/l extremity edema present. Neuro- alert, oriented x 3; EOMI; no facial palsy; no dysarthria; minimal movements of extremities. Results & Data Results & Data Vital Signs (Past 12 Hours) Vital Signs Temp Pulse Pulse Pulse Resp BP Pulse Ox 08/15/23 17:58 08/15/23 16:23 60 08/15/23 15:20 36.6 C 59 L 18 134/62 93 08/15/23 13:00 61 08/15/23 11:24 36.6 C 59 L 16 116/66 93 08/15/23 07:58 36.7 C 61 16 108/54 L 95 O2 Del Method 08/15/23 17:58 Room Air 08/15/23 16:23 08/15/23 15:20 Room Air 08/15/23 13:00 08/15/23 11:24 Room Air 08/15/23 07:58 Room Air Diagnostic Findings Laboratory Results WBC 5.59 K/ul (4.8-10.8) 08/15/23 04:59 RBC 2.58 M/uL (4.70-6.10) L 08/15/23 04:59 Hgb 7.7 g/dl (14.0-18.0) L 08/15/23 04:59 POC Hgb 7.8 g/dl (14.0-18.0) L 08/14/23 15:37 Hct 23.9 % (42.0-52.0) L 08/15/23 04:59 POC Hct 23 % (42-52) L 08/14/23 15:37 MCV 92.6 fL (80.0-100.0) 08/15/23 04:59 MCH 29.8 pg (25.0-34.0) 08/15/23 04:59 MCHC 32.2 g/dL (32.0-36.0) 08/15/23 04:59 RDW Std Deviation 56.6 fL (36.4-46.3) H 08/15/23 04:59 RDW Coeff of Poly 16.8 % (11.5-14.5) H 08/15/23 04:59 Plt Count 394 K/uL (130-400) 08/15/23 04:59 MPV 9.5 fL (9.4-12.4) 08/15/23 04:59 Immature Gran % (Auto) 0.7 % 08/15/23 04:59 Neut % (Auto) 67.6 % 08/15/23 04:59 Lymph % (Auto) 17.4 % 08/15/23 04:59 [place] % (Auto) 8.9 % 08/15/23 04:59 Eos % (Auto) 5.0 % 08/15/23 04:59 Baso % (Auto) 0.4 % 08/15/23 04:59 Neut # (Auto) 3.78 K/uL (1.40-6.50) 08/15/23 04:59 Lymph # (Auto) 0.97 K/uL (1.20-3.40) L 08/15/23 04:59 [place] # (Auto) 0.50 K/uL (0.11-0.59) 08/15/23 04:59 Eos # (Auto) 0.28 K/uL (0.00-0.50) 08/15/23 04:59 Baso # (Auto) 0.02 K/uL (0.00-0.20) 08/15/23 04:59 Immature Gran # (Auto) 0.04 K/uL (0.01-0.20) 08/15/23 04:59 Absolute Nucleated RBC 0.03 K/uL (0.00-0.12) 08/12/23 06:55 Nucleated RBC % (auto) 0.4 % 08/12/23 06:55 Polychromasia 1+ 08/15/23 04:59 Hypochromasia Present 08/15/23 04:59 POC pH 7.38 (7.35-7.45) 08/14/23 15:37 POC pCO2 44 mmHg (35-46) 08/14/23 15:37 POC pO2 69 mmHg (80-95) L 08/14/23 15:37 POC HCO3 26 mitchell/L (19-24) H 08/14/23 15:37 POC Total CO2 27 mmol/L (24-31) 08/14/23 15:37 POC Base Excess 1.0 mitchell/L (-9-1.8) 08/14/23 15:37 POC ABG O2 Sat 93.0 % (90-95) 08/14/23 15:37 POC Sodium 134 mmol/L (135-144) L 08/14/23 15:37 Sodium 136 mmol/L (136-145) 08/15/23 04:59 POC Potassium 4.6 mmol/L (3.3-5.0) 08/14/23 15:37 Potassium 4.5 mmol/L (3.5-5.1) 08/15/23 04:59 Chloride 104 mmol/L (98-107) 08/15/23 04:59 Carbon Dioxide 26 mmol/L (21-32) 08/15/23 04:59 Anion Gap 6 (3-11) 08/15/23 04:59 BUN 92 mg/dl (6-23) H 08/15/23 04:59 Creatinine 0.94 mg/dl (0.6-1.4) 08/15/23 04:59 Est Cr Clr Drug Dosing 73.0 ml/min 08/15/23 04:59 Est GFR ( Amer) 87.2 ml/min 08/15/23 04:59 Est GFR (Non-Af Amer) 75.2 ml/min 08/15/23 04:59 BUN/Creatinine Ratio 97.9 (10-20) H 08/15/23 04:59 Glucose 107 mg/dl (70-99(Fasting)) H 08/15/23 04:59 POC Glucose 121 mg/dl (70-99) H 08/15/23 17:09 Estimat Average Glucose 157 mg/dl 08/15/23 04:59 Hemoglobin A1c 7.1 % (4.5-5.6) H 08/15/23 04:59 Calcium 9.5 mg/dl (8.6-10.3) 08/15/23 04:59 Ionized Calcium 1.29 mmol/L (1.12-1.32) 07/19/23 04:56 Phosphorus 3.2 mg/dl (2.5-4.9) 08/11/23 07:30 Magnesium 2.2 mg/dl (1.7-2.4) 08/14/23 15:30 Total Bilirubin 0.3 mg/dl (0.2-1.0) 08/14/23 15:30 AST 16 U/L (13-39) 08/14/23 15:30 ALT 22 U/L (7-52) 08/14/23 15:30 Alkaline Phosphatase 76 U/L (34-104) 08/14/23 15:30 Ammonia 36.0 umol/L (18-72) 08/14/23 15:58 Total Creatine Kinase 338 U/L (30-223) H 07/23/23 07:10 Troponin I High Sens 8.9 pg/ml (0-20) 08/14/23 15:30 B-Natriuretic Peptide 239 pg/ml (0-100) H 07/16/23 13:50 Total Protein 5.8 gm/dl (6.0-8.3) L 08/14/23 15:30 Albumin 2.8 gm/dl (3.4-5.0) L 08/14/23 15:30 Globulin 3.0 gm/dl (2.5-4.0) 08/14/23 15:30 Albumin/Globulin Ratio 0.9 (0.9-2) 08/14/23 15:30 Triglycerides 181 mg/dl (0-150) H 08/15/23 04:59 Cholesterol 183 mg/dl (0-200) 08/15/23 04:59 LDL Cholesterol, Calc 115 mg/dl 08/15/23 04:59 VLDL Cholesterol, Calc 36 mg/dl (0-30) H 08/15/23 04:59 HDL Cholesterol 32 mg/dl 08/15/23 04:59 Cholesterol/HDL Ratio 5.7 (0-5) H 08/15/23 04:59 TSH 4.098 uIu/ml (0.300-4.500) 07/16/23 13:50 Urine Color Yellow 08/05/23 22:26 Urine Appearance Clear (Clear) 08/05/23 22:26 Urine pH 5.0 (4.5-7.5) 08/05/23 22:26 Ur Specific Ponder 1.018 (1.000-1.030) 08/05/23 22:26 Urine Protein Negative (Negative) 08/05/23 22:26 Urine Glucose (UA) Negative (Negative) 08/05/23 22:26 Urine Ketones Negative (Negative) 08/05/23 22:26 Urine Blood Negative (Negative) 08/05/23 22:26 Urine Nitrite Negative (Negative) 08/05/23 22:26 Urine Bilirubin Negative (Negative) 08/05/23 22:26 Urine Urobilinogen Negative (Negative) 08/05/23 22:26 Ur Leukocyte Esterase Trace (Negative) H 08/05/23 22:26 Urine WBC (Auto) 1-5 /hpf (0-5) 08/05/23 22:26 Urine RBC (Auto) 5-10 /hpf (0-4) H 08/05/23 22:26 U Hyaline Cast (Auto) 5-10 /lpf (0-5) H 08/05/23 22:26 U Epithel Cells (Auto) 5-10 /lpf (0-5) H 08/05/23 22:26 Urine Bacteria (Auto) Negative (Negative) 08/05/23 22:26 Ur Renal Epithelial Cell Not Reportable 07/22/23 Unknown Granular Casts 1-5 /lpf (0) H 08/05/23 22:26 Urine Yeast Not Reportable 07/22/23 Unknown Herpes Simplex Culture SEE NOTE 08/03/23 04:12 VZV Culture NOT ISOLATED 08/03/23 04:12 Viral Specimen Source BUTTOCK 08/03/23 04:12 Impressions Chest X-Ray 07/16/23 13:43 XR chest 1V portable CLINICAL HISTORY: weakness, fluid retention TECHNIQUE: Single frontal radiograph of the chest was obtained. Comparison: Comparison is made to chest radiograph 02/25/2022 FINDINGS: Median sternotomy wires are unchanged. Cardiomegaly is noted. The lungs are clear. No evidence of pleural effusion or pneumothorax. IMPRESSION: No acute chest disease. Cardiomegaly is noted. ACT 112: Negative or not required by law. Electronically signed by: Harirson Kent M.D. 07/16/2023 2:35 PM Venous Doppler Study 07/16/23 18:30 US venous doppler LE LT CLINICAL HISTORY: Lower extremity swelling, pain and redness TECHNIQUE: Left lower extremity real-time compression venous ultrasound with Color Doppler imaging. Utilizing real-time ultrasonic imaging multiple real time high-resolution ultrasonic images with compression and noncompression maneuvers of the deep venous system in addition to color doppler imaging were performed from the common femoral vein through the proximal calf veins. COMPARISON: Comparison is made to lower extremity ultrasound 10/22/2018 FINDINGS/IMPRESSION: Currently there is normal compressibility of the deep venous system from the common femoral vein through the proximal calf veins. The popliteal vein was not visualized, exam is limited by patient positioning and movement. ACT 112: Negative or not required by law. Electronically signed by: Harrison Kent M.D. 07/16/2023 7:38 PM Extremity Venous Study 07/19/23 14:30 ULTRASOUND LEFT UPPER EXTREMITY VENOUS CLINICAL HISTORY: Left arm swelling. COMPARISON STUDY: No priors. TECHNIQUE: Real-time, grayscale, and color Doppler sonography of the deep veins of the left upper extremity is performed. Compression and augmentation were utilized. FINDINGS: There is no sonographic evidence of deep venous thrombosis identified in the left upper extremity. The left internal jugular, axillary, and brachial veins are patent and normally compressible. Normal venous waveforms and augmentation are seen within the left subclavian vein. The cephalic and basilic veins are clear. The radial vein is patent. The ulnar vein is not well- visualized. IMPRESSION: There is no sonographic evidence of deep venous thrombosis identified in the left upper extremity. ACT 112: Negative or not required by law. Electronically signed by: Alejandro Sandoval M.D. 07/19/2023 11:[address] 08/14/23 15:[address] DOSE: HISTORY: Unresponsive. CVA? TECHNIQUE: Multiaxial CT images of the head were performed without the use of intravenous contrast. Automated exposure control was utilized for this study. A dose lowering technique was utilized adhering to the principles of ALARA. Comparison: Head CT 10/22/2018. Findings: Mild mucosal thickening within the left maxillary sinus. The remaining paranasal sinuses and mastoid air cells are clear. The calvarium and skull base are intact. The ventricles and sulci are within normal limits. There is no mass, hematoma, midline shift, or acute infarct. Impression: No acute intracranial abnormality. ACT 112: Negative or not required by law. Electronically signed by: Salty Martinez M.D. 08/14/2023 4:22 PM Head CTA 08/14/23 15:32 HEAD CTA HISTORY: Unresponsive. cva? TECHNIQUE: Multiaxial CT images of the head were performed following the intravenous administration of contrast to evaluate the major cerebral vessels. 3D/MIP images were also obtained. Sagittal and coronal reformats were reviewed. A dose lowering technique was utilized adhering to the principles of ALARA. COMPARISON: Head CT 08/14/2023. FINDINGS: The major dural venous sinuses are patent. There is a hypoplastic distal left vertebral artery. Moderate focal narrowing within the intracranial distal right vertebral artery due to the calcified plaque. This demonstrates up to 50% stenosis. The basilar artery is widely patent. Moderate calcified plaque within the bilateral intracranial internal carotid arteries resulting in [id number] multifocal stenosis on the right and severe focal stenosis of up to 75% within the cavernous segment of the left intracranial internal carotid artery on image 107. There is a hypoplastic left A1 segment. Otherwise, the daniel ateral ACAs and bilateral MCAs show no significant stenosis, occlusion, aneurysm. Punctate focus of calcification within the distal branches of the left MCA on image 194 is likely chronic. The right SENIOR COP[employer]WRITER is widely patent. There is focal moderate to severe stenosis within the proximal left SENIOR COPYWRITER on image 108. IMPRESSION: 1. No areas of arterial occlusion to suggest an acute infarct. 2. Multifocal areas of moderate to severe stenosis within the intracranial vasculature as described above likely due to chronic atherosclerotic disease. ACT 112: Negative or not required by law. Electronically signed by: Salty Martinez M.D. 08/14/2023 4:30 PM Neck CTA 08/14/23 15:32 CT ANGIOGRAM OF THE NECK CLINICAL HISTORY: Strokelike symptoms. COMPARISON STUDY: No priors. TECHNIQUE: Following the IV administration of 118 of Optiray 320, CT angiogram of the neck was performed from the aortic arch to the skull base. Images are reviewed in the axial, sagittal, and coronal planes. 3-D MIPS images are created and assessed. IV contrast was administered without complication. All measurements were calculated based on NASCET criteria. A dose lowering techn ique was utilized adhering to the principles of ALARA. The examination is degraded by motion artifact. CT DOSE: 1909.08 mGy.cm FINDINGS: Thoracic aorta: There is atherosclerotic calcification of the thoracic aorta. Visualized portions of the thoracic aorta are normal in caliber. The aortic arch demonstrates standard 3-vessel anatomy. Right carotid arterial system: The right common carotid artery is patent noting atherosclerotic plaque and irregularity. There is a dense atherosclerotic plaque within the carotid bulb which causes less than 50% luminal narrowing at the origin of the right internal carotid artery. The remainder of the right internal carotid artery is widely patent. There is high-grade stenosis of the origin of the right external carotid artery. Left carotid arterial system: The left common carotid artery is widely patent noting atherosclerotic plaque and irregularity. 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 There is atherosclerotic plaque in the carotid. There is less than 50% focal stenosis of the proximal ICA seen on image #2060. In the distal portions of the internal carotid artery are patent. This could represent advanced atherosclerotic plaque and irregularity. Vertebral arteries: The vertebral arteries are patent bilaterally noting right- sided dominance. There is at least moderate focal stenosis of the right vertebral artery at the level of C4-C5 seen on image #220. Subclavian arteries: Widely patent bilaterally noting atherosclerotic plaque and irregularity. Jugular veins: Widely patent bilaterally. Brain parenchyma: The visualized brain parenchyma the skull base is within normal limits. Lung apices: Partially visualized upper lobe lung parenchyma appears clear. Soft tissues: The visualized pharyngeal soft tissues are normal in appearance noting angiographic phase technique. The oropharyngeal airway appears widely patent. There are calcified sialoliths within the parotid glands. The salivary glands are otherwise normal in appearance. The thyroid gland is heterogeneous. No cervical lymphadenopathy is seen. The esophagus appears circumferentially thick walled. Skeletal structures: The skeletal structures are osteopenic. The visualized calvarium at the skull base appears intact. The imaged cervical spine is within normal limits. The patient is status post midline sternotomy. Sinuses and mastoids: There is trace mucosal thickening within the right maxillary antrum. The mastoid air cells appear well-pneumatized. IMPRESSION: 1. Atherosclerotic plaque with foci of less than 50% stenosis involving both internal carotid arteries. 2. There is at least moderate focal stenosis of the mid right vertebral artery. 3. 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 4. Additional findings as above. ACT 112: Negative or not required by law. Electronically signed by: Alejandro Sandoval M.D. 08/14/2023 4:24 PM Brain MRI 08/15/23 06:15 MRI OF THE BRAIN WITHOUT IV CONTRAST CLINICAL HISTORY: Upper and lower extremity swelling. Strokelike symptoms. COMPARISON STUDY: CT of the brain dated 08/14/2023. MRI of the brain dated 10/22/2018. TECHNIQUE: MRI of the brain was performed utilizing various T1 and T2-weighted sequences in the axial, sagittal, and coronal planes. IV contrast was not administered for this examination. The examination is degraded by motion artifact. FINDINGS: Brain parenchyma: There is age-related involutional change noting mild subcortical and periventricular microangiopathic disease. There is no hemorrhage or mass effect. There is no restricted diffusion to suggest acute ischemia. Hicks-white matter differentiation is preserved. No extra-axial fluid collection is seen. The cerebellar tonsils are normal in configuration. Ventricles, sulci, and cisterns: Prominent secondary to involutional change. Pituitary and sella: Unremarkable. Intracranial vasculature: Normal flow voids are maintained at the skull base. Orbits: The bony orbits are grossly intact. Orbital contents are normal in appearance. Sinuses and mastoids: Clear. Calvarium: Unremarkable. Cervical cord: Partially visualized cervical spinal cord is normal in morphology and signal intensity. IMPRESSION: No acute intracranial abnormality. ACT 112: Negative or not required by law. Electronically signed by: Alejandro Sandoval M.D. 08/15/2023 9:43 AM KUB X-Ray 08/15/23 09:00 KUB CLINICAL HISTORY: MRI clearance. Pain pump. FINDINGS: 3 AP supine abdominal radiographs are compared to study dated 08/10/2023. Correlation is made with abdominal CT dated 05/22/2019. There is a nonobstructed abdominal bowel gas pattern. A pain pump device projects over the left lower quadrant. The catheter tip projects over the lower thoracic region at T11-T12. Small metallic fiducials project over the prostate gland. No additional radiodense/metallic foreign body is seen. There are no abnormal abdominal calcifications. The skeletal structures are osteopenic and appear intact. Spondylotic and extensive postsurgical change is noted in the spine. Cortical lag screws transfix the right sacroiliac joint. IMPRESSION: 1. A pain pump device and intrathecal catheter are in place as above. 2. Metallic fiducials project over the prostate gland. 3. No bowel obstruction. Electronically signed by: Alejandro Sandoval M.D. 08/15/2023 9:00 AM
--- NOTE | 2023-08-15 19:35 | Electroencephalogram ---
EEG Procedure Note Date of Service August 15, 2023 Start / End Times Start Time: 06:43 End Time: 07:[address] Oneil Cline History An 83 year old male with encephalopathy. EEG performed for evaluation of epileptiform activity. Home Medication List Medication Instructions Recorded Confirmed Type carvedilol 25 mg tablet 25 mg PO BID 06/11/18 07/16/23 History allopurinol 300 mg tablet 300 mg PO QAM #30 tabs 11/02/18 07/16/23 Rx semaglutide 1 mg/dose (2 mg/1.5 2 mg subcut WK 01/10/19 07/16/23 History mL) subcutaneous pen injector (Ozempic) fenofibrate nanocrystallized 145 145 mg PO QPM 05/22/19 07/16/23 History mg tablet rosuvastatin 20 mg tablet 20 mg PO HS 05/22/19 07/16/23 History tamsulosin 0.4 mg capsule 0.4 mg PO HS #90 caps 06/10/20 07/16/23 Rx finasteride 5 mg tablet 5 mg PO QAM 05/07/21 07/16/23 History mineral oil 30 ml PO QPM 05/07/21 07/16/23 History multivitamin 1 tab PO QAM 05/07/21 07/16/23 History psyllium husk 3.4 gram/5.4 gram 1 tbsp PO QAM 05/07/21 07/16/23 History oral powder (Metamucil) MoRPHine PAIN PUMP 1 pump intrathecal UD #1 unit 04/27/22 07/16/23 Rx naloxone 4 mg/actuation nasal 1 spray intranasal Q3M PRN opioid 04/27/22 07/16/23 Rx spray (Narcan) overdose #2 ea dapagliflozin propanediol 5 mg 5 mg PO DAILY 05/11/22 07/16/23 History tablet (Farxiga) insulin degludec 100 unit/mL 34 unit subcut HS 05/11/22 07/16/23 History subcutaneous solution (Tresiba U-100 Insulin) acetaminophen 650 mg 650 - 1,300 mg PO Q8H 12/02/22 07/16/23 History tablet,extended release (Tylenol 8 Hour) duloxetine 20 mg capsule,delayed 20 mg PO DAILY 12/02/22 07/16/23 History release gabapentin 300 mg capsule 300 mg PO TID 12/02/22 07/16/23 History sennosides 8.6 mg tablet (Natural 8.6 mg PO DAILY 12/02/22 07/16/23 History Senna Laxative) aspirin 81 mg tablet,delayed 81 mg PO QAM 12/21/22 07/16/23 History release (Aspir-) pregabalin 50 mg capsule (Lyrica) 50 mg PO BID 07/16/23 07/16/23 History valacyclovir 1 gram tablet 1,000 mg PO TID 07/16/23 07/16/23 History (Valtrex) Inpatient Medication List ASA, Cymbalta, Gabapentin, Morphine Description This is a 21 electrode EEG with a single channel dedicated to limited EKG. The electrodes were placed in accordance with the International 10-20 system. REPORT: At the onset of the EEG the patient is in an altered mental state. The background is symmetric. The posterior dominant rhythm is not instead. There is a loss of the normal anterior to posterior gradient. The background consist of generalized polymorphic 3-4 Hz delta activity. There is some intermixed faster frequencies that is likely artifactual or myogenic. Interpretation IMPRESSION: This is an abnormal routine EEG in patient with altered mentation due to generalized background slowing suggestive of non specific encephalopathy. No epileptiform activity is seen.
[2023-08-15] MEDS ORDERED: CARBOHYDRATES FOR HYPOGLYCEMIA PO PRN (21:56)
[2023-08-15] MEDS ORDERED: GLUCOSE 40% GEL 15 GM TUBE PO PRN (21:56)
[2023-08-15] MEDS ORDERED: GLUCOSE 10 TAB/TUBE PO PRN (21:56)
[2023-08-15] MEDS ORDERED: DEXTROSE 50% 50 ML SYRINGE IV PRN (21:56)
[2023-08-15] MEDS ORDERED: GLUCAGON FOR INJ 1 MG VIAL SQ PRN (21:56)
[2023-08-15] MEDS ORDERED: carvediloL 3.125 MG TAB PO STA (21:58)
[2023-08-15] MEDS: TAMSULOSIN HCL 0.4 MG CAP PO SCH (22:54)
[2023-08-15] MEDS: MINERAL OIL 30 ML UDC PO SCH (22:55)
[2023-08-16 05:22] LABS: Basophils # (auto) 0.03 K/uL (0.00-0.20); Basophils % (auto) 0.6 %; Eosinophils # (auto) 0.28 K/uL (0.00-0.50); Eosinophils % (auto) 5.8 %; Hematocrit (blood only) 24.6 % (42.0-52.0); Hemoglobin 7.7 g/dl (14.0-18.0); Immature Granulocytes # (auto) 0.03 K/uL (0.01-0.20); Immature Granulocytes % (auto) 0.6 %; Lymphocytes # (auto) 0.92 K/uL (1.20-3.40); Mean Corpuscular Hemoglobin 29.7 pg (25.0-34.0); Mean Corpuscular Hgb Conc 31.3 g/dL (32.0-36.0); Mean Platelet Volume 9.7 fL (9.4-12.4); Monocytes # (auto) 0.49 K/uL (0.11-0.59); Monocytes % (auto) 10.1 %; Neutrophils # (auto) 3.09 K/uL (1.40-6.50); Neutrophils % (auto) 63.9 %; Platelet Count 366 K/uL (130-400); RDW Coefficient of Variation 16.9 % (11.5-14.5); RDW Standard Deviation 58.3 fL (36.4-46.3); Red Blood Count 2.59 M/uL (4.70-6.10); White Blood Count 4.84 K/ul (4.8-10.8)
[2023-08-16 05:36] LABS: BUN Creatinine Ratio 94.3 (10-20); Calcium 9.2 mg/dl (8.6-10.3); Est GFR (African American) 92.7 ml/min; Potassium 4.5 mmol/L (3.5-5.1)
[2023-08-16 06:05] LABS: Polychromasia 1+
[2023-08-16] MEDS: GABAPENTIN 300 MG CAP PO SCH ×3 (08:51→22:35)
[2023-08-16] MEDS: NYSTATIN OINT 15 GM TUBE EXT SCH ×2 (08:52→22:50)
[2023-08-16] MEDS: SENNA 8.6 MG TAB PO SCH ×2 (08:52→22:35)
[2023-08-16] MEDS: lisinopril 10 MG TAB PO SCH (08:53)
[2023-08-16] MEDS: ADVANCED PROBIOTIC 1250 MG CAPSULE PO SCH (08:53)
[2023-08-16] MEDS: carvediloL 12.5 MG TAB PO SCH ×2 (08:54→17:59)
[2023-08-16] MEDS: MUPIROCIN 2% OINT 22 GM TUBE EXT SCH ×3 (08:54→22:50)
[2023-08-16] MEDS: POLYETHYLENE (MIRALAX) 17 GM PACK PO SCH ×3 (09:00→22:34)
[2023-08-16] MEDS: PREGABALIN 50 MG CAP PO SCH ×2 (09:00→22:34)
[2023-08-16] MEDS: INSULIN ASPART PER UNIT CHARGE SC SCH ×4 (09:00→22:33)
--- NOTE | 2023-08-16 10:57 | Nephrology Consultation ---
Date of Consultation August 16, 2023 Assessment & Plan (1) Azotemia: Extremely complicated patient with a very extensive list of medical problems and who has been in the hospital for more than 30-days. I have been consulted for disproportionately high BUN with a normal creatinine. I do not feel there is 1 answer for this because but rather it is very multifactorial. There are multiple medications as well as clinical situation that can cause this situation in his case. They include--- doxycycline which she was getting up until yesterday, acyclovir/Valtrex, Crestor and fenofibrate ( note he had elevated Total CK) , bedbound status which can cause significant muscle atrophy thereby contributing to misleadingly low creatinine. Other clinical state she has--- hypercatabolic state as well as possible slow occult GI bleed as she also has very low hemoglobin. Recommendation: 1 agree with stopping doxycycline. Also agree with stopping fenofibrate. Both these medications are well-known to cause disproportionately high BUN. Also agree with stopping Crestor. I do not see any other medications which are well- known to cause disproportionately high BUN. 2 given low hemoglobin and high BUN it is reasonable to do fecal occult blood test which is also well-known cause for disproportionately high BUN. Both CHF and Dehydration can cause elevated BUN. 3 Avoid giving Steroid as that can cause high BUN. 4 check total CK. 5 for the last 2 days BUN is trending downward so for now we will follow. 6 It will be difficult to come up with 1 answer for his elevated BUN. History of Present Illness Reason for Consultation: Disproportionately high BUN with normal creatinine Requesting Physician: Dr. Hay Attending Physician: Oneil Cline MD History of Present Illness 83-year-old male who has been in the hospital now for 31-days. 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 He was recently diagnosed with shingles and has been on medication for that. At home patient was on Crestor fenofibrate Lasix(but recently stopped because of concern about kidney function) . In the hospital patient has received doxycycline up until yesterday. His initial CK was galdino vated and is currently trending down. Since being admitted in the hospital he has been seen by multiple call center support consultant including neurology for the cervical cord injury with elevated CK--the suggested to stop Crestor fenofibrate which he was getting prior to admission. urology saw him for penile ulcer--initially had Woodson but currently get straight catheterization. Antifungal was suggested. Infectious disease also saw him--- was getting Acyclovir for shingles. On admission BUN was 58 and it has remained high consistently. 2 days ago it was 96 yesterday was 92 and today is 83 so at least for the last 2 days trend is downward. Hemoglobin has been consistently low and it is still low. I do not have any record whether his fecal occult blood test is positive or not. CK was elevated at 1500 and is trending. He does have significant lower extremity edema. Review of system-----he reports being chronically weak and does have chronic back pain from his underlying neurological injury. Does not report the pain being more than usual at this time. Denies nausea vomiting chest pain shortness of breath any worse than usual. He does have significant lower extremity edema. 12 system overall reviewed and negative otherwise Physical examination Awake alert oriented x 3. He was able to give detailed account of his medical problems Mucous membrane is moist neck is supple no JVD Chest bilateral decreased breath sounds occasional crackles at the base CVS S1-S2 regular no murmur heard Abdomen is soft nontender obese Extremity does show 1+ edema bilateral Skin shows dry skin with some skin flake. Allergies Allergy/AdvReac Type Severity Reaction Status Date / Time cyclobenzaprine AdvReac Severe Disorientation, Verified 07/16/23 16:00 confusion Home Medications Medication Instructions Recorded Confirmed Type carvedilol 25 mg tablet 25 mg PO BID 06/11/18 07/16/23 History allopurinol 300 mg tablet 300 mg PO QAM #30 tabs 11/02/18 07/16/23 Rx semaglutide 1 mg/dose (2 mg/1.5 2 mg subcut WK 01/10/19 07/16/23 History mL) subcutaneous pen injector (Ozempic) fenofibrate nanocrystallized 145 145 mg PO QPM 05/22/19 07/16/23 History mg tablet rosuvastatin 20 mg tablet 20 mg PO HS 05/22/19 07/16/23 History tamsulosin 0.4 mg capsule 0.4 mg PO HS #90 caps 06/10/20 07/16/23 Rx finasteride 5 mg tablet 5 mg PO QAM 05/07/21 07/16/23 History mineral oil 30 ml PO QPM 05/07/21 07/16/23 History multivitamin 1 tab PO QAM 05/07/21 07/16/23 History psyllium husk 3.4 gram/5.4 gram 1 tbsp PO QAM 05/07/21 07/16/23 History oral powder (Metamucil) MoRPHine PAIN PUMP 1 pump intrathecal UD #1 unit 04/27/22 07/16/23 Rx naloxone 4 mg/actuation nasal 1 spray intranasal Q3M PRN opioid 04/27/22 07/16/23 Rx spray (Narcan) overdose #2 ea dapagliflozin propanediol 5 mg 5 mg PO DAILY 05/11/22 07/16/23 History tablet (Farxiga) insulin degludec 100 unit/mL 34 unit subcut HS 05/11/22 07/16/23 History subcutaneous solution (Tresiba U-100 Insulin) acetaminophen 650 mg 650 - 1,300 mg PO Q8H 12/02/22 07/16/23 History tablet,extended release (Tylenol 8 Hour) duloxetine 20 mg capsule,delayed 20 mg PO DAILY 12/02/22 07/16/23 History release gabapentin 300 mg capsule 300 mg PO TID 12/02/22 07/16/23 History sennosides 8.6 mg tablet (Natural 8.6 mg PO DAILY 12/02/22 07/16/23 History Senna Laxative) aspirin 81 mg tablet,delayed 81 mg PO QAM 12/21/22 07/16/23 History release (Aspir-) pregabalin 50 mg capsule (Lyrica) 50 mg PO BID 07/16/23 07/16/23 History valacyclovir 1 gram tablet 1,000 mg PO TID 07/16/23 07/16/23 History (Valtrex) Patient History Medical History Myelomalacia of cervical cord Weakness Presence of intrathecal pump Obesity Frozen shoulder Postlaminectomy syndrome of lumbosacral region Myofascial pain Anemia Chronic CKD (chronic kidney disease) History of blood transfusion Post-op (2017) Carotid artery stenosis s/p left CEA (2006) History of kidney stones Spinal stenosis Diabetes mellitus, type 2 IDDM Hx of sleep apnea Refuses CPAP per records Uses oxygen 2L HS N/C Hx of atrial flutter 4:1 AV conduction s/p cardioversion x2 and subsequent successful RFA (2011) Hypertension Prostate cancer s/p radiation (2016) Dyslipidemia Gout History of atrial fibrillation s/p radiofrequency ablation (2011) Follows Dr. York ([place]) Coronary artery disease CABG x2 (2006) Follows Dr. York ([place]) Surgical History S/P insertion of intrathecal pump History of surgery Morphine epidural pump trial (03/01/22): MAC at [facility]. No issues noted per post- op anesthesia progress note. History of difficult intubation L2-S1 fusion 06/19/2014 - "poor visualization with MAC 4. Glidescope #4 utilized. Lg tongue with much soft tissue." History of cystoscopy + stent (08/06/18): MAC sedation at [facility] S/P CABG x 2 FRANCO-LAD; LAD-D1 SUB BRANCH (2006) S/P carotid endarterectomy Left (2006) H/O cardiac radiofrequency ablation atrial flutter converted to NSR History of lumbar fusion x 4 back surgeries History of open reduction and internal fixation (ORIF) procedure R/L ankles () Family History Grandmother Diabetes Other Alzheimer disease Prostate cancer Social History Smoking Status: Current some day smoker Tobacco Type: Cigars Second Hand Exposure: No; Do You Dip or Chew Tobacco: No; Hx Alcohol Use: No Hx Substance Use: No Preferred Language: Spanish Communication Ability: Effective Communication Ability Comment: SLIGHT HEARD OF HEARING Visual Impairment: No Limitations Middleware Administrator Required: No Beliefs That Will Affect Care: None marital status: / Current Living Situation: Alone current occupational status: retired How many Children do You have: 4 Feels Safe at Home: Yes Assistive Devices: Hospital Bed, Lift Chair, Oxygen - at Night and Scooter/Electric Scooter Results & Data Vital Signs (Past 12 Hours) Vital Signs Temp Pulse Pulse Pulse Resp BP Pulse Ox 08/16/23 07:56 36.7 C 63 16 134/66 90 08/16/23 07:45 63 08/16/23 03:35 08/16/23 03:15 37.0 C 63 20 136/51 L 90 08/16/23 00:01 36.7 C 61 18 153/66 H 95 08/15/23 23:31 58 L O2 Del Method 08/16/23 07:56 Room Air 08/16/23 07:45 08/16/23 03:35 Room Air 08/16/23 03:15 Room Air 08/16/23 00:01 Room Air 08/15/23 23:31 Laboratory Results Extensively reviewed
--- NOTE | 2023-08-16 12:35 | Pain Management Progress Note ---
Date of Service August 16, 2023 Assessment & Plan (1) S/P insertion of intrathecal pump: (2) Stroke-like episode: Plan 1. The patient's intrathecal pump was refilled today with a 15% reduction in overall dose (intrathecal pump was reduced given patient's recent confusion, unresponsive episode, overall medical condition) to run at morphine 0.2039 mg/day. Do not suspect any concern for opiate withdrawal given only 15% reduction in dose. Please call pain management should the hospitalist service feel that subsequent dose reductions are warranted. Procedure note written by the nurse as below. "Patient's intrathecal pain pump refilled today at the hospital per Dr. Jody Saleh's orders. Pain pump medications Morphine 2mg/ml in a 20ml syringe were verified by two RN's, myself and YNES Velasco on 2nd floor. Patient was identified by name and date of . Patient's pump was identified to left lower abdomen and was cleansed with orange packet of ChloraPrep wipes x 2, followed by DuraPrep and Betadine x 3. Prep dried for 3 minutes. On examination, no signs of skin breakdown or infection were noted at the injection site. Sterile technique was used, sterile towels and drape were applied. Using sterile technique and the template, pump reservoir was accessed with a 22g 1.5 inch Deutsch needle uneventfully. Pump was then refilled with Morphine 2mg/ml in a 20ml syringe. Bacteriostatic filter and constant negative pressure was maintained throughout the refill. Needle was withdrawn. Hemostasis noted. Site cleansed and Band-Aid was applied. Pump was reprogrammed as documented - 15% decrease to daily dose per Dr. Jody Saleh's orders (See pump print out report for further details) - dose to intrathecal pump is now at Simple Continuous rate of 0.2039mg/day of intrathecal Morphine - no PTM. Patient tolerated procedure well and offers no complaints. Instructions were reviewed with patient as well as signs and symptoms of overdose, withdrawal, and infection. Patient aware to keep band aid in place and clean after 24 hours. May shower, no tub baths, hot tub or swimming for 48 hours. Patient verbalized understanding. No questions verbalized. Expected 3.1ml of intrathecal Morphine. Actual amount was 4.0ml and was wasted and witnessed by YNES Velasco - see paper nurse note for further details. Patient's new alarm date is 01/29/24 and refill date is 12/13/23 at 1pm. Will call and verify with daughter date and time of new pump refill date at Pain Management office. Patient given an appointment reminder card and pump printout for him for his records and to keep on him. Pump logs were also read and reviewed due to patient having an MRI yesterday - motor stall occurred on 08/15/23 at 0856 and motor stall recovery occurred on 08/15/23 at 1053. See pump printout for further details." 2. Please call should you have any further questions. Admission and Anticipated Discharge Date Admission Date: July 16, 2023 Subjective 83-year-old male well-known to the [facility] pain management service with chronic lumbar pain due to an extensive history of lumbar spinal surgeries. Patient has history of implantation of intrathecal pump and catheter delivery system on 04/26/2022. The patient was scheduled for a routine intrathecal pump refill today. Patient had a recent unresponsive episode pro mpting stroke alert to be called on 08/14/2023. Patient close to baseline but will diminish pump by 15% today. Physical Exam Physical Exam: Intrathecal pump in situ without local erythema drainage fluctuance near the pump site. Constitutional: WD/WN, vitals as above Results (Pain Clinic) Laboratory Review Additional Comments: reivewed
--- NOTE | 2023-08-16 18:58 | Hospitalist Progress Note ---
Date of Service August 16, 2023 Assessment & Plan (1) Stroke-like episode: Plan: Mr. Yepez is an 83 year old gentleman with PMHx significant for chronic pain with morphine pump, DMII and BPH admitted for placement per family, after a few weeks of generalized progressive weakness, likely attributed to worsening myopathy and weakness after simultaneous UTI and herpes zoster infection in the setting of statin, fibrate therapy and allopurinol. Patient was noted to have lower extremity edema upon admission, which improved with IV diuresis. ECHO did not revealed diastolic dysfunction, but questionable PHTN. Further diuresis limited 2/2 SRAVANI, which is improving with cessation of lasix on 07/18. Patient with elevated CK since admission, IVF given fro 48 hours and stopped on 07/23 [facility] evaluated patient given chronic persistent lower back pain with new onset severe weakness in both of his legs. This was felt to be infection affecting his underlying failed laminectomy syndrome. No surgical intervention given complex comorbidities making patient poor candidate. Broadened coverage with zosyn on 07/22 2/2 fevers and clinically poor appearance--appears much better; notably lesion on buttock concerning for shingles recurrence. Discontinued Zosyn given negative infectious work up and pursue recurrent shingles treatment with contact precautions. Shingles treatment was escalated to IV acyclovir given concern for disseminated shingles. ID consulted. Consulted neurology. Initial suggestions included consideration for stopping statin, fibrate and allopurinol as all of these may contribute to myopathy (noted elevated CK). Patient's zoster lesions improved dramatically on exam; however, penile ulceration suspicious of necrosis from catheter. Urology assessed and recommended continuation of antibiotics for 1 week, which completed 08/15. Patient continued on CIC q 6h. Course has further been complicated by stroke-like episode, in which work up has been negative to date for stroke or other acute process. Neurology following. Given encephalopathy on EEG, consulted nephrology to review azotemia. Patient remains admitted awaiting for placement. #Stroke-like episode "08/14/23 Suddenly became unresponsive. Last well know around 2pm.baseline minimal movement of b/l extremities. Wheel chair bound and nurses have to feed him. On morphine Pump. IM narcan 0.2mg as patient iv line not working. IT was 3:30pm by that time IM narcan didnot helped much. So stroke alert was called.After CT scan was done patient woke up. Initially he was able to tell his name and knows his but thought he was in storage. Later could tell he is hospital.[facility] Neurologist evaluated the patient. As patient is mostly back to baseline except some confusion with dates thought probably medication related but wanted to do MRI head and also eeg for now and consult neurology in am. And to avoid sedatives.Held tramadol. Will monitor in med/tele for now." Remains at baseline EEG notable for encephalopathy Continue delirium precautions #Azotemia -No clear eitology, but noted to be uptrending since admission -Nephrology consulted to assess given issues with encephalopathy: -Completed doxycycline which can cause elevated BUN; no longer on fenofibrate/statin for >2 weeks -Avoid steroids -Hemoccult ordered -Check total CK #. Lower extremity edema #. Left UE edema Pt with significant lower extremity edema and left UE edema Chest xray with noted cardiomegaly; Echo 60% EF, pHTN, LVH Swelling near resolved LE on exam but is present in his hands/upper extremities now, likely related to poor movement/weakness, no reported heart failure LUE doppler negative for acute process. Doppler US LLE with low suspicion for clot/ Completed course of antibiotics for presumptive cellulitis on admission. Encourage L U extremity elevation and ambulation OOB to chair as tolerated. Swelling exacerbated by poor mobility. FR 1800 ml; iv lasix (give after clinical assessment on daily basis) w/ freq intermittent cath; increase protein content in diet. PO lasix on hold. Monitor and replete electrolytes. Mobilize LUE frequently, elevate above level of heart to help w/ swelling. currently not on diuretics #Penile ulcer *improved Purulent discharge noted on ulcer of foreskin near lawson catheter Urology consulted - suspect possible balanitis of the penis/foreskin which is likely both yeast and bacterial Wound culture MRSA--completed doxycycline EOT 08/15, mupirocin topically Continue CIC to prevent further foreskin compression/irritation q6h . Kandice GONZALES'tereza. #Ambulatory Dysfunction, myopathy #thoracic myelopathy #Failed Laminectomy syndrome Freq falls happening at home, pt with bruising on chest CK elevated, then downtrended CM consult for placement needs in this situation Ortho evaluated patient given left leg sensory loss and bilateral motor weakness: no surgical intervention given comorbidities stopped statin, fenofibrate and allopurinol and feels ? improved. Will likely need pcsk9i, pt to f/u w/ PCP office to initiate on this. Pt made aware. PT/OT Pending placement Need to continue turning patient q2h and helping to prevent breakdown on scrotum which is also swollen. Expect myopathy to be residential, but may improve over the next several weeks. Awaiting placement #Disseminated Zoster New lesions on buttock c/w herpes zoster , Airborne precautions VZV/HSV swabs of lesions obtained, pending since 08/03 Plan for 14 days total of IV if positive EOT 08/10 - completed course. [place] capsaicin cream for neuralgia lesions dries and crusted on exam. #Rhabdomyolysis *resolved [CK elevated on admission, improved with rehydration efforts and stopped statin, fibrate]. #SRAVANI over CKD stage III: GFR ranges in 40s since 2019. SRAVANI has improved. Monitor BMP as needed. #DMII, h/o: A1c of 7.4 on 07/17/2023. Sliding scale insulin in hospital.Will monitor #HTN: Chronic, stable. Currently on coreg, lisinopril, . #Chronic Pain Has morphine pump managed by [facility] Consult placed to pain management for further pain management recs while in hosp Also on gabapentin, lyrica (noted both are gabapentinoids), cymbalta, tylenol for pain. Continue bowel regimen for chronic narcotic use- scheduled sennokot and metamucil, miralax ordered as pt on a pump Pain Consult placed on 07/16-no change in infusion worsened pain from shingles, gabapentin increased to 600mg TID and added PRN tramadol Pump filled 08/16/2023 by pain service with reduction 15% #Constipation Continue bowel regimen for chronic narcotic use Scheduled sennokot and metamucil, miralax as pt on a morphine pump Will monitor #HLD: Hold home statin and fibrate as may contribute to elevated CK and worsening myopathy. Will need f/u w/ PCP as OP for consideration of PCSK9i. BPH/LUTS: continue home meds Diet: Low sodium, DMII, FR 1800ml DVT prophylaxis: Lovenox CODE STATUS: DNR/DNI per POLST form Dispo: SNF pending UE edema improvement. 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 Denies any acute concerns, feels clear--attempted to explain confusions, but did go off tangentially "police were getting really aggressive with me" --upon clarifying, patient noted that he is "not a villian" otherwise patient is clear Review of Systems Review of Systems: All systems reviewed & are unremarkable except as noted in Subjective Physical Exam Constitutional: WD/WN, vitals as above Respiratory: normal respiratory effort, lungs clear to auscultation Cardiovascular: RRR, no murmur, no edema Gastrointestinal (Abdomen): normal bowel sounds, soft, nontender, no hepatosplenomegaly Results & Data Results & Data Vital Signs (Past 12 Hours) Vital Signs Temp Pulse Pulse Resp BP Pulse Ox O2 Del Method 08/16/23 16:21 58 L 08/16/23 16:01 37.0 C 65 16 121/66 96 Room Air 08/16/23 11: 36.7 C 66 16 127/68 91 Room Air 08/16/23 09:15 Room Air 08/16/23 07:56 36.7 C 63 16 134/66 90 Room Air 08/16/23 07:45 63 Laboratory Results Short CBC 08/16/23 Range/Units 04:41 WBC 4.84 (4.8-10.8) K/ul Hgb 7.7 L (14.0-18.0) g/dl Hct 24.6 L (42.0-52.0) % Plt Count 366 (130-400) K/uL BMP 08/16/23 04:41 Sodium 138 Potassium 4.5 Chloride 106 Carbon Dioxide 26 BUN 83 H Creatinine 0.88 Glucose 103 H Calcium 9.2 Medications Administered Home Medications Medication Instructions Recorded Confirmed Last Taken carvedilol 25 mg tablet 25 mg PO BID 06/11/18 07/16/23 07/16/23 allopurinol 300 mg tablet 300 mg PO QAM #30 tabs 11/02/18 07/16/23 07/16/23 semaglutide 1 mg/dose (2 mg/1.5 2 mg subcut WK 01/10/19 07/16/23 07/11/23 mL) subcutaneous pen injector (TeraView) fenofibrate nanocrystallized 145 145 mg PO QPM 05/22/19 07/16/2307/15/23 mg tablet rosuvastatin 20 mg tablet 20 mg PO HS 05/22/19 07/16/23 07/15/23 tamsulosin 0.4 mg capsule 0.4 mg PO HS #90 caps 06/10/20 07/16/23 07/15/23 finasteride 5 mg tablet 5 mg PO QAM 05/07/21 07/16/23 07/16/23 mineral oil 30 ml PO QPM 05/07/21 07/16/23 07/15/23 multivitamin 1 tab PO QAM 05/07/21 07/16/23 07/16/23 psyllium husk 3.4 gram/5.4 gram 1 tbsp PO QAM 05/07/21 07/16/23 07/16/23 oral powder (Metamucil) MoRPHine PAIN PUMP 1 pump intrathecal UD #1 unit 04/27/22 07/16/23 07/16/23 naloxone 4 mg/actuation nasal 1 spray intranasal Q3M PRN opioid 04/27/22 07/16/23 Unknown spray (Narcan) overdose #2 ea dapagliflozin propanediol 5 mg 5 mg PO DAILY 05/11/22 07/16/23 07/16/23 tablet (Farxiga) insulin degludec 100 unit/mL 34 unit subcut HS 05/11/22 07/16/23 07/15/23 subcutaneous solution (Tresiba U-100 Insulin) acetaminophen 650 mg 650 - 1,300 mg PO Q8H 12/02/22 07/16/23 07/16/23 tablet,extended release (Tylenol 8 Hour) duloxetine 20 mg capsule,delayed 20 mg PO DAILY 12/02/22 07/16/23 07/15/23 release gabapentin 300 mg capsule 300 mg PO TID 12/02/22 07/16/23 07/16/23 sennosides 8.6 mg tablet (Natural 8.6 mg PO DAILY 12/02/22 07/16/23 07/15/23 Senna Laxative) aspirin 81 mg tablet,delayed 81 mg PO QAM 12/21/22 07/16/23 07/16/23 release (Aspir-) pregabalin 50 mg capsule (Lyrica) 50 mg PO BID 07/16/23 07/16/23 Unknown valacyclovir 1 gram tablet 1,000 mg PO TID 07/16/23 07/16/23 Unknown (Valtrex) Active Medications Generic Name Dose Route Start Last Admin Trade Name [place] PRN Reason Stop Dose Admin Acetaminophen 1,000 mg 07/24/23 16:27 08/08/23 11:51 Acetaminophen 500 Mg Tab PO 08/17/23 16:55 1,000 mg Q8H PRN Administration Pain/fever Carvedilol 12.5 mg 08/16/23 08:00 08/16/23 17:59 Carvedilol 12.5 Mg Tab PO 09/15/23 07:59 12.5 mg BIDM SARITA Administration Gabapentin 600 mg 07/31/23 21:00 08/16/23 14:27 Gabapentin 300 Mg Cap PO 08/30/23 20:59 600 mg TID SARITA Administration Insulin Aspart 0 units 08/15/23 22:00 08/16/23 17:57 Insulin Aspart Per Unit Charge SC 09/14/23 21:59 5 units ACHS SARITA Administration Lactobacillus Acidophilus 2 cap 08/13/23 09:00 08/16/23 08:53 Advanced Probiotic 1250 Mg Capsule PO 09/12/23 08:59 2 cap DAILY SARITA Administration Mupirocin 1 appln 07/23/23 09:00 08/16/23 14:28 Mupirocin 2% Oint 22 Gm Tube EXT 08/22/23 08:59 1 appln TID SARITA Administration Nystatin 1 appln 08/04/23 21:00 08/16/23 08:52 Nystatin Oint 15 Gm Tube EXT 09/03/23 20:59 1 appln BID SARITA Administration Polyethylene Glycol 17 gm 07/22/23 14:00 08/16/23 14:27 Polyethylene (Miralax) 17 Gm Pack PO 08/21/23 13:59 17 gm TID SARITA Administration Pregabalin 50 mg 08/15/23 22:00 08/16/23 09:00 Pregabalin 50 Mg Cap PO 09/14/23 21:59 50 mg BID SARITA Administration Sennosides 8.6 mg 07/22/23 13:00 08/16/23 08:52 Senna 8.6 Mg Tab PO 08/21/23 12:59 8.6 mg BID SARITA Administration Tamsulosin HCl 0.4 mg 08/15/23 22:00 08/15/23 22:54 Tamsulosin Hcl 0.4 Mg Cap PO 09/14/23 21:59 0.4 mg HS SARITA Administration
[2023-08-16] MEDS: TAMSULOSIN HCL 0.4 MG CAP PO SCH (22:35)
[2023-08-17 06:44] LABS: Basophils # (auto) 0.03 K/uL (0.00-0.20); Basophils % (auto) 0.5 %; Eosinophils # (auto) 0.31 K/uL (0.00-0.50); Eosinophils % (auto) 5.6 %; Hematocrit (blood only) 24.3 % (42.0-52.0); Hemoglobin 7.7 g/dl (14.0-18.0); Immature Granulocytes # (auto) 0.02 K/uL (0.01-0.20); Immature Granulocytes % (auto) 0.4 %; Lymphocytes # (auto) 0.96 K/uL (1.20-3.40); Lymphocytes % (auto) 17.2 %; Mean Corpuscular Hemoglobin 29.5 pg (25.0-34.0); Mean Corpuscular Hgb Conc 31.7 g/dL (32.0-36.0); Mean Corpuscular Volume 93.1 fL (80.0-100.0); Mean Platelet Volume 9.8 fL (9.4-12.4); Monocytes # (auto) 0.61 K/uL (0.11-0.59); Monocytes % (auto) 10.9 %; Neutrophils # (auto) 3.65 K/uL (1.40-6.50); Neutrophils % (auto) 65.4 %; Platelet Count 397 K/uL (130-400); RDW Coefficient of Variation 16.9 % (11.5-14.5); RDW Standard Deviation 56.6 fL (36.4-46.3); Red Blood Count 2.61 M/uL (4.70-6.10); White Blood Count 5.58 K/ul (4.8-10.8)
[2023-08-17 07:14] LABS: Polychromasia 1+
[2023-08-17 07:15] LABS: Calcium 9.4 mg/dl (8.6-10.3); Magnesium 2.1 mg/dl (1.7-2.4); Potassium 4.8 mmol/L (3.5-5.1)
[2023-08-17 07:21] LABS: Est GFR (African American) 91.9 ml/min; Est GFR (Non-African American) 79.3 ml/min; Phosphorus 2.9 mg/dl (2.5-4.9)
--- NOTE | 2023-08-17 07:42 | Hospitalist Progress Note ---
Date of Service August 17, 2023 Assessment & Plan (1) Stroke-like episode: Plan: Mr. Yepez is an 83 year old gentleman with PMHx significant for chronic pain with morphine pump, DMII and BPH admitted for placement per family, after a few weeks of generalized progressive weakness, likely attributed to worsening myopathy and weakness after simultaneous UTI and herpes zoster infection in the setting of statin, fibrate therapy and allopurinol. Patient was noted to have lower extremity edema upon admission, which improved with IV diuresis. ECHO did not revealed diastolic dysfunction, but questionable PHTN. Further diuresis limited 2/2 SRAVANI, which is improving with cessation of lasix on 07/18. Patient with elevated CK since admission, IVF given fro 48 hours and stopped on 07/23 [facility] evaluated patient given chronic persistent lower back pain with new onset severe weakness in both of his legs. This was felt to be infection affecting his underlying failed laminectomy syndrome. No surgical intervention given complex comorbidities making patient poor candidate. Broadened coverage with zosyn on 07/22 2/2 fevers and clinically poor appearance--appears much better; notably lesion on buttock concerning for shingles recurrence. Discontinued Zosyn given negative infectious work up and pursue recurrent shingles treatment with contact precautions. Shingles treatment was escalated to IV acyclovir given concern for disseminated shingles. ID consulted. Consulted neurology. Initial suggestions included consideration for stopping statin, fibrate and allopurinol as all of these may contribute to myopathy (noted elevated CK). Patient's zoster lesions improved dramatically on exam; however, penile ulceration suspicious of necrosis from catheter. Urology assessed and recommended continuation of antibiotics for 1 week, which completed 08/15. Patient continued on CIC q 6h. Course has further been complicated by stroke-like episode, in which work up has been negative to date for stroke or other acute process. Neurology following. Given encephalopathy on EEG, consulted nephrology to review azotemia, in which no clear cause can be elucidated as it is likely multifactorial. Patient remains admitted awaiting for placement. #Stroke-like episode "08/14/23 Suddenly became unresponsive. Last well know around 2pm.baseline minimal movement of b/l extremities. Wheel chair bound and nurses have to feed him. On morphine Pump. IM narcan 0.2mg as patient iv line not working. IT was 3:30pm by that time IM narcan didnot helped much. So stroke alert was called.After CT scan was done patient woke up. Initially he was able to tell his name and knows his but thought he was in storage. Later could tell he is hospital.[place] [facility] Neurologist evaluated the patient. As patient is mostly back to baseline except some confusion with dates thought probably medication related but wanted to do MRI head and also eeg for now and consult neurology in am. And to avoid sedatives.Held tramadol. Will monitor in med/tele for now." Remains at baseline EEG notable for encephalopathy Continue delirium precautions #Acute on chronic normocytic anemia #GRETTA +Chronic inflammation anemia -Anemia labs ordered -Hemoccult negative -Given encephalopathy, BUN without cause, myopathy that seems unexplained to the degree of currently severity, will order myositis labs to r/o other eitologies--CK in rare cases has been normal in different inflammatory myopathies and warrants r/o -Anemia labs: low iron, TIBC, and transferrin,with normal ferritin (mixed GRETTA/ chronic disease) -Start Iron supplementation #Azotemia -No clear eitology, but noted to be uptrending since admission -Nephrology consulted to assess given issues with encephalopathy: -Completed doxycycline which can cause elevated BUN; no longer on fenofibrate/statin for >2 weeks -Avoid steroids -Hemoccult 08/14 negative and 22 -CK 31 #. Lower extremity edema #. Left UE edema Pt with significant lower extremity edema and left UE edema Chest xray with noted cardiomegaly; Echo 60% EF, pHTN, LVH Swelling near resolved LE on exam but is present in his hands/upper extremities now, likely related to poor movement/weakness, no reported heart failure LUE doppler negative for acute process. Doppler US LLE with low suspicion for clot/ Completed course of antibiotics for presumptive cellulitis on admission. Encourage L U extremity elevation and ambulation OOB to chair as tolerated. Swelling exacerbated by poor mobility. FR 1800 ml; iv lasix (give after clinical assessment on daily basis) w/ freq intermittent cath; increase protein content in diet. PO lasix on hold. Monitor and replete electrolytes. Mobilize LUE frequently, elevate above level of heart to help w/ swelling. currently not on diuretics #Penile ulcer *improved Purulent discharge noted on ulcer of foreskin near lawson catheter Urology consulted - suspect possible balanitis of the penis/foreskin which is likely both yeast and bacterial Wound culture MRSA--completed doxycycline EOT 08/15, mupirocin topically Continue CIC to prevent further foreskin compression/irritation q6h . Kandice GONZALES'tereza. #Ambulatory Dysfunction, myopathy #thoracic myelopathy #Failed Laminectomy syndrome Freq falls happening at home, pt with bruising on chest CK elevated, then downtrended CM consult for placement needs in this situation Ortho evaluated patient given left leg sensory loss and bilateral motor weakness: no surgical intervention given comorbidities stopped statin, fenofibrate and allopurinol and feels ? improved. Will likely need pcsk9i, pt to f/u w/ PCP office to initiate on this. Pt made aware. PT/OT Pending placement Need to continue turning patient q2h and helping to prevent breakdown on scrotum which is also swollen. Expect myopathy to be continuous churn buttermaker, but may improve over the next several weeks. Awaiting placement #Disseminated Zoster New lesions on buttock c/w herpes zoster , Airborne precautions VZV/HSV swabs of lesions obtained, pending since 08/03 Plan for 14 days total of IV if positive EOT 08/10 - completed course. [place] capsaicin cream for neuralgia lesions dries and crusted on exam. #Rhabdomyolysis *resolved [CK elevated on admission, improved with rehydration efforts and stopped statin, fibrate]. #SRAVANI over CKD stage III: GFR ranges in 40s since 2019. SRAVANI has improved. Monitor BMP as needed. #DMII, h/o: A1c of 7.4 on 07/17/2023. Sliding scale insulin in hospital.Will monitor #HTN: Chronic, stable. Currently on coreg, lisinopril, . #Chronic Pain Has morphine pump managed by [facility] Pain management Consult placed to pain management for further pain management recs while in hosp Also on gabapentin, lyrica (noted both are gabapentinoids), cymbalta, tylenol for pain. Continue bowel regimen for chronic narcotic use- scheduled sennokot and metam ucil, miralax ordered as pt on a pump Pain Consult placed on 07/16-no change in infusion worsened pain from shingles, gabapentin increased to 600mg TID and added PRN tramadol Pump filled 08/16/2023 by pain service with reduction 15% #Constipation Continue bowel regimen for chronic narcotic use Scheduled sennokot and metamucil, miralax as pt on a morphine pump Will monitor #HLD: Hold home statin and fibrate as may contribute to elevated CK and worsening myopathy. Will need f/u w/ PCP as OP for consideration of PCSK9i. BPH/LUTS: continue home meds Diet: Low sodium, DMII, FR 1800ml DVT prophylaxis: Lovenox CODE STATUS: DNR/DNI per POLST form Dispo: SNF pending UE edema improvement. Admission and Anticipated Discharge Date Admission Date: July 16, 2023 Subjective NAEO, eating breakfast Denies any new concerns this am, reports feeling well overall this morning with strong appetite Review of Systems Review of Systems: All systems reviewed & are unremarkable except as noted in Subjective Physical Exam Constitutional: WD/WN, vitals as above Respiratory: normal respiratory effort, lungs clear to auscultation Cardiovascular: RRR, no murmur, no edema Gastrointestinal (Abdomen): normal bowel sounds, soft, nontender, no hepatosplenomegaly Results & Data Results & Data Vital Signs (Past 12 Hours) Vital Signs Temp Pulse Pulse Resp BP Pulse Ox O2 Del Method 08/17/23 04:21 36.8 C 59 L 20 144/64 H 94 Room Air 08/17/23 03:55 Room Air 08/16/23 23:59 75 08/16/23 23:46 37.6 C H 75 18 163/63 H 96 Room Air 08/16/23 21:02 36.9 C 70 18 146/63 H 95 Room Air Laboratory Results Short CBC 08/17/23 Range/Units 05:56 WBC 5.58 (4.8-10.8) K/ul Hgb 7.7 L (14.0-18.0) g/dl Hct 24.3 L (42.0-52.0) % Plt Count 397 (130-400) K/uL BMP 08/17/23 05:56 Sodium 141 Potassium 4.8 Chloride 109 H Carbon Dioxide 26 BUN 81 H Creatinine 0.90 Glucose 115 H Calcium 9.4 Cardiac Enzymes 08/17/23 Range/Units 05:56 Total Creatine Kinase 31 (30-223) U/L Medications Administered Home Medications Medication Instructions Recorded Confirmed Last Taken carvedilol 25 mg tablet 25 mg PO BID 06/11/18 07/16/23 07/16/23 allopurinol 300 mg tablet 300 mg PO QAM #30 tabs 11/02/18 07/16/23 07/16/23 semaglutide 1 mg/dose (2 mg/1.5 2 mg subcut WK 01/10/19 07/16/23 07/11/23 mL) subcutaneous pen injector ([employer]) fenofibrate nanocrystallized 145 145 mg PO QPM 05/22/19 07/16/23 07/15/23 mg tablet rosuvastatin 20 mg tablet 20 mg PO HS 05/22/19 07/16/23 07/15/23 tamsulosin 0.4 mg capsule 0.4 mg PO HS #90 caps 06/10/20 07/16/23 07/15/23 finasteride 5 mg tablet 5 mg PO QAM 05/07/21 07/16/23 07/16/23 mineral oil 30 ml PO QPM 05/07/21 07/16/23 07/15/23 multivitamin 1 tab PO QAM 05/07/21 07/16/23 07/16/23 psyllium husk 3.4 gram/5.4 gram 1 tbsp PO QAM 05/07/21 07/16/23 07/16/23 oral powder (Metamucil) MoRPHine PAIN PUMP 1 pump intrathecal UD #1 unit 04/27/22 07/16/23 07/16/23 naloxone 4 mg/actuation nasal 1 spray intranasal Q3M PRN opioid 04/27/22 07/16/23 Unknown spray (Narcan) overdose #2 ea dapagliflozin propanediol 5 mg 5 mg PO DAILY 05/11/22 07/16/23 07/16/23 tablet (Farxiga) insulin degludec 100 unit/mL 34 unit subcut HS 05/11/22 07/16/23 07/15/23 subcutaneous solution (Tresiba U-100 Insulin) acetaminophen 650 mg 650 - 1,300 mg PO Q8H 12/02/22 07/16/23 07/16/23 tablet,extended release (Tylenol 8 Hour) duloxetine 20 mg capsule,delayed 20 mg PO DAILY 12/02/22 07/16/23 07/15/23 release gabapentin 300 mg capsule 300 mg PO TID 12/02/22 07/16/23 07/16/23 sennosides 8.6 mg tablet (Natural 8.6 mg PO DAILY 12/02/22 07/16/23 07/15/23 Senna Laxative) aspirin 81 mg tablet,delayed 81 mg PO QAM 12/21/22 07/16/23 07/16/23 release (Aspir-) pregabalin 50 mg capsule (Lyrica) 50 mg PO BID 07/16/23 07/16/23 Unknown valacyclovir 1 gram tablet 1,000 mg PO TID 07/16/23 07/16/23 Unknown (Valtrex) Active Medications Generic Name Dose Route Start Last Admin Trade Name Freq PRN Reason Stop Dose Admin Acetaminophen 1,000 mg 07/24/23 16:27 08/08/23 11:51 Acetaminophen 500 Mg Tab PO 08/17/23 16:55 1,000 mg Q8H PRN Administration Pain/fever Carvedilol 12.5 mg 08/16/23 08:00 08/16/23 17:59 Carvedilol 12.5 Mg Tab PO 09/15/23 07:59 12.5 mg BIDM SARITA Administration Gabapentin 600 mg 07/31/23 21:00 08/16/23 22:35 Gabapentin 300 Mg Cap PO 08/30/23 20:59 600 mg TID SARITA Administration Insulin Aspart 0 units 08/15/23 22:00 08/16/23 22:33 Insulin Aspart Per Unit Charge SC 09/14/23 21:59 3 units ACHS SARITA Administration Lactobacillus Acidophilus 2 cap 08/13/23 09:00 08/16/23 08:53 Advanced Probiotic 1250 Mg Capsule PO 09/12/23 08:59 2 cap DAILY SARITA Administration Mupirocin 1 appln 07/23/23 09:00 08/16/23 22:50 Mupirocin 2% Oint 22 Gm Tube EXT 08/22/23 08:59 1 appln TID SARITA Administration Nystatin 1 appln 08/04/23 21:00 08/16/23 22:50 Nystatin Oint 15 Gm Tube EXT 09/03/23 20:59 1 appln BID SARITA Administration Polyethylene Glycol 17 gm 07/22/23 14:00 08/16/23 22:34 Polyethylene (Miralax) 17 Gm Pack PO 08/21/23 13:59 17 gm TID SARITA Administration Pregabalin 50 mg 08/15/23 22:00 08/16/23 22:34 Pregabalin 50 Mg Cap PO 09/14/23 21:59 50 mg BID SARITA Administration Sennosides 8.6 mg 07/22/23 13:00 08/16/23 22:35 Senna 8.6 Mg Tab PO 08/21/23 12:59 8.6 mg BID SARITA Administration Tamsulosin HCl 0.4 mg 08/15/23 22:00 08/16/23 22:35 Tamsulosin Hcl 0.4 Mg Cap PO 09/14/23 21:59 0.4 mg HS SARITA Administration
[2023-08-17 08:45] LABS: Reticulocyte % 3.3 % (0.5-2.0); Reticulocytes # 0.08 10^6/uL (0.02-0.10)
[2023-08-17 08:58] LABS: C Reactive Protein 10.39 mg/dl (0-0.5)
[2023-08-17] MEDS: GABAPENTIN 300 MG CAP PO SCH ×3 (08:58→21:53)
[2023-08-17] MEDS: SENNA 8.6 MG TAB PO SCH ×2 (08:59→21:54)
[2023-08-17] MEDS: ADVANCED PROBIOTIC 1250 MG CAPSULE PO SCH (08:59)
[2023-08-17] MEDS: POLYETHYLENE (MIRALAX) 17 GM PACK PO SCH ×3 (09:00→21:54)
[2023-08-17] MEDS: PREGABALIN 50 MG CAP PO SCH ×2 (09:00→21:53)
[2023-08-17] MEDS: NYSTATIN OINT 15 GM TUBE EXT SCH ×2 (09:01→21:55)
[2023-08-17] MEDS: carvediloL 12.5 MG TAB PO SCH ×2 (09:01→18:11)
[2023-08-17] MEDS: MUPIROCIN 2% OINT 22 GM TUBE EXT SCH ×3 (09:01→21:55)
[2023-08-17] MEDS: INSULIN ASPART PER UNIT CHARGE SC SCH ×4 (09:02→21:51)
[2023-08-17 09:17] LABS: Ferritin 357.2 ng/ml (8-388)
[2023-08-17 09:24] LABS: Folate (Folic Acid),Ser orPlas 20.23 ng/ml (>5.38)
[2023-08-17] MEDS: TAMSULOSIN HCL 0.4 MG CAP PO SCH (21:53)
[2023-08-18] MEDS: INSULIN ASPART PER UNIT CHARGE SC SCH ×4 (09:03→20:43)
[2023-08-18] MEDS: GABAPENTIN 300 MG CAP PO SCH ×3 (09:04→20:08)
[2023-08-18] MEDS: SENNA 8.6 MG TAB PO SCH ×2 (09:04→20:07)
[2023-08-18] MEDS: ADVANCED PROBIOTIC 1250 MG CAPSULE PO SCH (09:04)
[2023-08-18] MEDS: FERROUS SULFATE 325 MG TAB PO SCH (09:05)
[2023-08-18] MEDS: carvediloL 12.5 MG TAB PO SCH (09:05)
[2023-08-18] MEDS: POLYETHYLENE (MIRALAX) 17 GM PACK PO SCH ×3 (09:06→20:09)
[2023-08-18] MEDS: MUPIROCIN 2% OINT 22 GM TUBE EXT SCH ×3 (09:06→20:09)
[2023-08-18] MEDS: NYSTATIN OINT 15 GM TUBE EXT SCH ×2 (09:06→20:09)
[2023-08-18] MEDS: PREGABALIN 50 MG CAP PO SCH ×2 (09:08→20:07)
[2023-08-18 09:57] LABS: Hematocrit (blood only) 27.9 % (42.0-52.0); Hemoglobin 8.9 g/dl (14.0-18.0); Mean Corpuscular Hemoglobin 29.7 pg (25.0-34.0); Mean Corpuscular Hgb Conc 31.9 g/dL (32.0-36.0); Mean Platelet Volume 9.6 fL (9.4-12.4); Platelet Count 376 K/uL (130-400); RDW Coefficient of Variation 17.1 % (11.5-14.5); RDW Standard Deviation 57.2 fL (36.4-46.3); White Blood Count 5.99 K/ul (4.8-10.8)
[2023-08-18 10:16] LABS: BUN Creatinine Ratio 80.7 (10-20); Calcium 9.8 mg/dl (8.6-10.3); Creatinine Clr Calc Pharmacy 82.7 ml/min; Est GFR (Non-African American) 81.9 ml/min; Magnesium 1.9 mg/dl (1.7-2.4)
--- NOTE | 2023-08-18 13:59 | Hospitalist Progress Note ---
Date of Service August 18, 2023 Assessment & Plan (1) Stroke-like episode: Plan: Mr. Yepez is an 83 year old gentleman with PMHx significant for chronic pain with morphine pump, DMII and BPH admitted for placement per family, after a few weeks of generalized progressive weakness, likely attributed to worsening myopathy and weakness after simultaneous UTI and herpes zoster infection in the setting of statin, fibrate therapy and allopurinol. Patient was noted to have lower extremity edema upon admission, which improved with IV diuresis. ECHO did not revealed diastolic dysfunction, but questionable PHTN. Further diuresis limited 2/2 SRAVANI, which is improving with cessation of lasix on 07/18. Patient with elevated CK since admission, IVF given fro 48 hours and stopped on 07/23 [facility] evaluated patient given chronic persistent lower back pain with new onset severe weakness in both of his legs. This was felt to be infection affecting his underlying failed laminectomy syndrome. No surgical intervention given complex comorbidities making patient poor candidate. Broadened coverage with zosyn on 07/22 2/2 fevers and clinically poor appearance--appears much better; notably lesion on buttock concerning for shingles recurrence. Discontinued Zosyn given negative infectious work up and pursue recurrent shingles treatment with contact precautions. Shingles treatment was escalated to IV acyclovir given concern for disseminated shingles. ID consulted and completed acyclovir 08/10. Consulted neurology. Initial suggestions included consideration for stopping statin, fibrate and allopurinol as all of these may contribute to myopathy (noted elevated CK, which is now normal). Patient's zoster lesions improved dramatically on exam; however, penile ulceration suspicious of necrosis from catheter. Urology assessed and recommended continuation of antibiotics for 1 week, which completed 08/15. Patient continued on CIC q 6h. Course has further been complicated by stroke-like episode, in which work up has been negative to date for stroke or other acute process; MRI negative for acute stroke. Given encephalopathy on EEG, consulted nephrology to review azotemia, in which no clear cause can be elucidated as it is likely multifactorial. Discussion with patient noted that he does have history of similar episodes, usually after awakening--given history of noncompliance with CPAP. He states he was taken off CPAP and transitioned to what seemed like nocturnal oxygen. Patient remains admitted awaiting for placement. #Stroke-like episode "08/14/23 Suddenly became unresponsive. Last well know around 2pm.baseline minimal movement of b/l extremities. Wheel chair bound and nurses have to feed him. On morphine Pump. IM narcan 0.2mg as patient iv line not working. IT was 3:30pm by that time IM narcan didnot helped much. So stroke alert was called.After CT scan was done patient woke up. Initially he was able to tell his name and knows his but thought he was in storage. Later could tell he is hospital.[place] St[facility] Neurologist evaluated the patient. As patient is mostly back to baseline except some confusion with dates thought probably medication related but wanted to do MRI head and also eeg for now and consult neurology in am. And to avoid sedatives.Held tramadol. Will monitor in med/tele for now." Remains at baseline EEG notable for encephalopathy Continue delirium precautions Nocturnal pulse oximetry to assess need for qpm O2 #Acute on chronic normocytic anemia #GRETTA +Chronic inflammation anemia -Anemia labs ordered -Hemoccult negative -Given encephalopathy, BUN without cause, myopathy that seems unexplained to the degree of currently severity, will order myositis labs to r/o other eitologies--CK in rare cases has been normal in different inflammatory myopathies and warrants r/o -Anemia labs: low iron, TIBC, and transferrin,with normal ferritin (mixed GRETTA/chronic disease) -Continue Iron supplementation #Azotemia *improving -No clear eitology, but noted to be uptrending since admission -Nephrology consulted to assess given issues with encephalopathy: -Completed doxycycline which can cause elevated BUN; no longer on fenofibrate/statin for >2 weeks -Avoid steroids -Hemoccult 08/14 negative and 22 -CK 31 #. Lower extremity edema #. Left UE edema Pt with significant lower extremity edema and left UE edema Chest xray with noted cardiomegaly; Echo 60% EF, pHTN, LVH Swelling near resolved LE on exam but is present in his hands/upper extremities now, likely related to poor movement/weakness, no reported heart failure LUE doppler negative for acute process. Doppler US LLE with low suspicion for clot/ Completed course of antibiotics for presumptive cellulitis on admission. Encourage L U extremity elevation and ambulation OOB to chair as tolerated. Swelling exacerbated by poor mobility. FR 1800 ml; iv lasix (give after clinical assessment on daily basis) w/ freq intermittent cath; increase protein content in diet. PO lasix on hold. Monitor and replete electrolytes. Mobilize LUE frequently, elevate above level of heart to help w/ swelling. currently not on diuretics #ASCVD CTA head Multifocal areas of moderate to severe stenosis within the intracranial vasculature as described above likely due to chronic atherosclerotic disease 1. Atherosclerotic plaque with foci of less than 50% stenosis involving both internal carotid arteries. 2. There is at least moderate focal stenosis of the mid right vertebral artery. 3. 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 -Added plavix, statin held / myopathy #Penile ulcer *resolved Purulent discharge noted on ulcer of foreskin near lawson catheter Urology consulted - suspect possible balanitis of the penis/foreskin which is likely both yeast and bacterial Wound culture MRSA--completed doxycycline EOT 08/15, mupirocin topically Continue CIC to prevent further foreskin compression/irritation q6h . Kandice GONZALES'tereza. #Ambulatory Dysfunction, myopathy #thoracic myelopathy #Failed Laminectomy syndrome Freq falls happening at home, pt with bruising on chest CK elevated, then downtrended CM consult for placement needs in this situation Ortho evaluated patient given left leg sensory loss and bilateral motor weakness: no surgical intervention given comorbidities stopped statin, fenofibrate and allopurinol and feels ? improved. Will likely need pcsk9i, pt to f/u w/ PCP office to initiate on this. Pt made aware. PT/OT Pending placement Need to continue turning patient q2h and helping to prevent breakdown on scrotum which is also swollen. Expect myopathy to be intermediate, but may improve over the next several weeks. Awaiting placement #Disseminated Zoster *resolved New lesions on buttock c/w herpes zoster , Airborne precautions VZV/HSV swabs of lesions obtained, pending since 08/03 Plan for 14 days total of IV if positive EOT 08/10 - completed course. [place] capsaicin cream for neuralgia lesions dries and crusted on exam. #Rhabdomyolysis *resolved [CK elevated on admission, improved with rehydration efforts and stopped statin, fibrate]. #SRAVANI over CKD stage III: GFR ranges in 40s since 2019. SRAVANI has improved. Monitor BMP as needed. #DMII, h/o: A1c of 7.4 on 07/17/2023. Sliding scale insulin in hospital.Will monitor #HTN: not getting coreg 2/2 heart rates, will trial lisinopril given improved renal function . #Chronic Pain Has morphine pump [facility] Consult placed to pain management for further pain management recs while in hosp Also on gabapentin, lyrica (noted both are gabapentinoids), cymbalta, tylenol for pain. Continue bowel regimen for chronic narcotic use- scheduled sennokot and metamucil, miralax ordered as pt on a pump Pain Consult placed on 07/16-no change in infusion worsened pain from shingles, gabapentin increased to 600mg TID and added PRN tramadol Pump filled 08/16/2023 by pain service with reduction 15% #Constipation Continue bowel regimen for chronic narcotic use Scheduled sennokot and metamucil, miralax as pt on a morphine pump Will monitor #HLD: Hold home statin and fibrate as may contribute to elevated CK and worsening myopathy. Will need f/u w/ PCP as OP for consideration of PCSK9i. BPH/LUTS: continue home meds Diet: Low sodium, DMII, FR 1800ml DVT prophylaxis: Lovenox CODE STATUS: DNR/DNI per POLST form Dispo: SNF Admission and Anticipated Discharge Date Admission Date: July 16, 2023 Subjective Patient reports history of encephalopathy--given history of apnea and component of ?OHS ; has history of retaining, notably las vbg without rention contributing, but hypoxia/apnea may be contributing component Patient very alert and communicative today, discussing past admissions (though timeline skewed, seems to be decent recollection of events---2019 hospitalization was reported to be ~7 years ago, but minor detail compared to events he described today) Review of Systems Review of Systems: All systems reviewed & are unremarkable except as noted in Subjective Physical Exam Constitutional: WD/WN, vitals as above Respiratory: normal respiratory effort, lungs clear to auscultation Cardiovascular: RRR, no murmur, no edema Musculoskeletal: 3/5 strength in RUE, 1/5 in RUE--stable unchanged Results & Data Results & Data Vital Signs (Past 12 Hours) Vital Signs Temp Pulse Resp BP Pulse Ox O2 Del Method 08/18/23 11:19 36.7 C 56 L 20 151/68 H 95 Room Air 08/18/23 07:58 36.6 C 55 L 20 143/56 H 96 Room Air 08/18/23 07:51 Room Air 08/18/23 03:15 36.8 C 62 16 125/63 96 Room Air 08/18/23 02:39 Room Air Laboratory Results Short CBC 08/18/23 Range/Units 09:33 WBC 5.99 (4.8-10.8) K/ul Hgb 8.9 L (14.0-18.0) g/dl Hct 27.9 L (42.0-52.0) % Plt Count 376 (130-400) K/uL BMP 08/18/23 09:33 Sodium 141 Potassium 5.0 Chloride 109 H Carbon Dioxide 27 BUN 67 H Creatinine 0.83 Glucose 148 H Calcium 9.8 Cardiac Enzymes 08/18/23 Range/Units 09:33 Total Creatine Kinase 32 (30-223) U/L Medications Administered Home Medications Medication Instructions Recorded Confirmed Last Taken carvedilol 25 mg tablet 25 mg PO BID 06/11/18 07/16/23 07/16/23 allopurinol 300 mg tablet 300 mg PO QAM #30 tabs 11/02/18 07/16/23 07/16/23 semaglutide 1 mg/dose (2 mg/1.5 2 mg subcut WK 01/10/19 07/16/23 07/11/23 mL) subcutaneous pen injector (Ozempic) fenofibrate nanocrystallized 145 145 mg PO QPM 05/22/19 07/16/23 07/15/23 mg tablet rosuvastatin 20 mg tablet 20 mg PO HS 05/22/19 07/16/23 07/15/23 tamsulosin 0.4 mg capsule 0.4 mg PO HS #90 caps 06/10/20 07/16/23 07/15/23 finasteride 5 mg tablet 5 mg PO QAM 05/07/21 07/16/23 07/16/23 mineral oil 30 ml PO QPM 05/07/21 07/16/23 07/15/23 multivitamin 1 tab PO QAM 05/07/21 07/16/23 07/16/23 psyllium husk 3.4 gram/5.4 gram 1 tbsp PO QAM 05/07/21 07/16/23 07/16/23 oral powder (Metamucil) MoRPHine PAIN PUMP 1 pump intrathecal UD #1 unit 04/27/22 07/16/23 07/16/23 naloxone 4 mg/actuation nasal 1 spray intranasal Q3M PRN opioid 04/27/22 07/16/23 Unknown spray (Narcan) overdose #2 ea dapagliflozin propanediol 5 mg 5 mg PO DAILY 05/11/22 07/16/23 07/16/23 tablet (Farxiga) insulin degludec 100 unit/mL 34 unit subcut HS 05/11/22 07/16/23 07/15/23 subcutaneous solution (Tresiba U-100 Insulin) acetaminophen 650 mg 650 - 1,300 mg PO Q8H 12/02/22 07/16/23 07/16/23 tablet,extended release (Tylenol 8 Hour) duloxetine 20 mg capsule,delayed 20 mg PO DAILY 12/02/22 07/16/23 07/15/23 release gabapentin 300 mg capsule 300 mg PO TID 12/02/22 07/16/23 07/16/23 sennosides 8.6 mg tablet (Natural 8.6 mg PO DAILY 12/02/22 07/16/23 07/15/23 Senna Laxative) aspirin 81 mg tablet,delayed 81 mg PO QAM 12/21/22 07/16/23 07/16/23 release (Aspir-) pregabalin 50 mg capsule (Lyrica) 50 mg PO BID 07/16/23 07/16/23 Unknown valacyclovir 1 gram tablet 1,000 mg PO TID 07/16/23 07/16/23 Unknown (Valtrex) Active Medications Generic Name Dose Route Start Last Admin Trade Name Freq PRN Reason Stop Dose Admin Ferrous Sulfate 325 mg 08/18/23 09:00 08/18/23 09:05 Ferrous Sulfate 325 Mg Tab PO 09/17/23 08:59 325 mg QAM SARITA Administration Gabapentin 600 mg 07/31/23 21:00 08/18/23 12:51 Gabapentin 300 Mg Cap PO 08/30/23 20:59 600 mg TID SARITA Administration Insulin Aspart 0 units 08/15/23 22:00 08/18/23 12:51 Insulin Aspart Per Unit Charge SC 09/14/23 21:59 6 units ACHS SARITA Administration Lactobacillus Acidophilus 2 cap 08/13/23 09:00 08/18/23 09:04 Advanced Probiotic 1250 Mg Capsule PO 09/12/23 08:59 2 cap DAILY SARITA Administration Mupirocin 1 appln 07/23/23 09:00 08/18/23 12:52 Mupirocin 2% Oint 22 Gm Tube EXT 08/22/23 08:59 1 appln TID SARITA Administration Nystatin 1 appln 08/04/23 21:00 08/18/23 09:06 Nystatin Oint 15 Gm Tube EXT 09/03/23 20:59 1 appln BID SARITA Administration Polyethylene Glycol 17 gm 07/22/23 14:00 08/18/23 12:52 Polyethylene (Miralax) 17 Gm Pack PO 08/21/23 13:59 Not Given TID SARITA Pregabalin 50 mg 08/15/23 22:00 08/18/23 09:08 Pregabalin 50 Mg Cap PO 09/14/23 21:59 50 mg BID SARITA Administration Sennosides 8.6 mg 07/22/23 13:00 08/18/23 09:04 Senna 8.6 Mg Tab PO 08/21/23 12:59 8.6 mg BID SARITA Administration Tamsulosin HCl 0.4 mg 08/15/23 22:00 08/17/23 21:53 Tamsulosin Hcl 0.4 Mg Cap PO 09/14/23 21:59 0.4 mg HS SARITA Administration
[2023-08-18] MEDS ORDERED: lisinopril 5 MG TAB PO ONE (14:00)
[2023-08-18] MEDS: TAMSULOSIN HCL 0.4 MG CAP PO SCH (20:08)
[2023-08-19 06:36] LABS: BUN Creatinine Ratio 69.9 (10-20); Calcium 9.8 mg/dl (8.6-10.3); Creatinine Clr Calc Pharmacy 72.9 ml/min; Est GFR (African American) 88.3 ml/min; Est GFR (Non-African American) 76.2 ml/min; Magnesium 1.9 mg/dl (1.7-2.4); Potassium 4.6 mmol/L (3.5-5.1)
[2023-08-19] MEDS: GABAPENTIN 300 MG CAP PO SCH ×3 (08:16→21:43)
[2023-08-19] MEDS: SENNA 8.6 MG TAB PO SCH ×2 (08:17→21:43)
[2023-08-19] MEDS: ADVANCED PROBIOTIC 1250 MG CAPSULE PO SCH (08:18)
[2023-08-19] MEDS: CLOPIDOGREL BISULFATE 75 MG TAB PO SCH (08:18)
[2023-08-19] MEDS: FERROUS SULFATE 325 MG TAB PO SCH (08:18)
[2023-08-19] MEDS: NYSTATIN OINT 15 GM TUBE EXT SCH ×2 (08:19→21:42)
[2023-08-19] MEDS: MUPIROCIN 2% OINT 22 GM TUBE EXT SCH ×3 (08:19→21:43)
[2023-08-19] MEDS: PREGABALIN 50 MG CAP PO SCH ×2 (08:24→21:42)
[2023-08-19] MEDS: INSULIN ASPART PER UNIT CHARGE SC SCH ×4 (08:49→21:27)
[2023-08-19] MEDS ORDERED: lisinopril 5 MG TAB PO SCH ×2 (09:00→21:00)
[2023-08-19] MEDS: POLYETHYLENE (MIRALAX) 17 GM PACK PO SCH (12:45)
--- NOTE | 2023-08-19 15:43 | Hospitalist Progress Note ---
Date of Service August 19, 2023 Assessment & Plan (1) Stroke-like episode: Plan: Mr. Yepez is an 83 year old gentleman with PMHx significant for chronic pain with morphine pump, DMII and BPH admitted for placement per family, after a few weeks of generalized progressive weakness, likely attributed to worsening myopathy and weakness after simultaneous UTI and herpes zoster infection in the setting of statin, fibrate therapy and allopurinol. Patient was noted to have lower extremity edema upon admission, which improved with IV diuresis. ECHO did not revealed diastolic dysfunction, but questionable PHTN. Further diuresis limited 2/2 SRAVANI, which is improving with cessation of lasix on 07/18. Patient with elevated CK since admission, IVF given fro 48 hours and stopped on 07/23 [facility] evaluated patient given chronic persistent lower back pain with new onset severe weakness in both of his legs. This was felt to be infection affecting his underlying failed laminectomy syndrome. No surgical intervention given complex comorbidities making patient poor candidate. Broadened coverage with zosyn on 07/22 2/2 fevers and clinically poor appearance--appears much better; notably lesion on buttock concerning for shingles recurrence. Discontinued Zosyn given negative infectious work up and pursue recurrent shingles treatment with contact precautions. Shingles treatment was escalated to IV acyclovir given concern for disseminated shingles. ID consulted and completed acyclovir 08/10. Consulted neurology. Initial suggestions included consideration for stopping statin, fibrate and allopurinol as all of these may contribute to myopathy (noted elevated CK, which is now normal). Patient's zoster lesions improved dramatically on exam; however, penile ulceration suspicious of necrosis from catheter. Urology assessed and recommended continuation of antibiotics for 1 week, which completed 08/15. Patient continued on CIC q 6h. Course has further been complicated by stroke-like episode, in which work up has been negative to date for stroke or other acute process; MRI negative for acute stroke. Given encephalopathy on EEG, consulted nephrology to review azotemia, in which no clear cause can be elucidated as it is likely multifactorial. Discussion with patient noted that he does have history of similar episodes, usually after awakening--given history of noncompliance with CPAP. He states he was taken off CPAP and transitioned to what seemed like nocturnal oxygen. Nocturnal study performed on 08/18 overnight did not reveal any hypoxic episdoes (1 desat) that would warrant nocturnal o2. Patient remains admitted awaiting for placement. #NSVT 1 episode of NSVT, continue to monitor on telemetry discontinue BB 2/2 not getting it for days given heart rates in high 50s, asymptomatic If recurrence, will consult Cards Potentially correlated to episode of "bad dream" reported by patient -Will resume dose reduced coreg with hold parameter <55 #Stroke-like episode "08/14/23 Suddenly became unresponsive. Last well know around 2pm.baseline minimal movement of b/l extremities. Wheel chair bound and nurses have to feed him. On morphine Pump. IM narcan 0.2mg as patient iv line not working. IT was 3:30pm by that time IM narcan didnot helped much. So stroke alert was called.After CT scan was done patient woke up. Initially he was able to tell his name and knows his but thought he was in storage. Later could tell he is hospital.[place] Stroke Neurologist evaluated the patient. As patient is mostly back to baseline except some confusion with dates thought probably medication related but wanted to do MRI head and also eeg for now and consult neurology in am. And to avoid sedatives.Held tramadol. Will monitor in med/tele for now." Remains at baseline EEG notable for encephalopathy Continue delirium precautions Nocturnal pulse oximetry unremarkable for hypoxia contributing to symptoms #Acute on chronic normocytic anemia #GRETTA +Chronic inflammation anemia -Anemia labs ordered -Hemoccult negative -Given encephalopathy, BUN without cause, myopathy that seems unexplained to the degree of currently severity, will order myositis labs to r/o other eitologies--CK in rare cases has been normal in different inflammatory myopathies and warrants r/o -Anemia labs: low iron, TIBC, and transferrin,with normal ferritin (mixed GRETTA/chronic disease) -Continue Iron supplementation #Azotemia *improving -No clear eitology, but noted to be uptrending since admission -Nephrology consulted to assess given issues with encephalopathy: -Completed doxycycline which can cause elevated BUN; no longer on fenofibrate/statin for >2 weeks -Avoid steroids -Hemoccult 08/14 negative and 22 -CK 31 #. Lower extremity edema #. Left UE edema Pt with significant lower extremity edema and left UE edema Chest xray with noted cardiomegaly; Echo 60% EF, pHTN, LVH Swelling near resolved LE on exam but is present in his hands/upper extremities now, likely related to poor movement/weakness, no reported heart failure LUE doppler negative for acute process. Doppler US LLE with low suspicion for clot/ Completed course of antibiotics for presumptive cellulitis on admission. Encourage L U extremity elevation and ambulation OOB to chair as tolerated. Swelling exacerbated by poor mobility. FR 1800 ml; iv lasix (give after clinical assessment on daily basis) w/ freq intermittent cath; increase protein content in diet. PO lasix on hold. Monitor and replete electrolytes. Mobilize LUE frequently, elevate above level of heart to help w/ swelling. currently not on diuretics #ASCVD CTA head Multifocal areas of moderate to severe stenosis within the intracranial vasculature as described above likely due to chronic atherosclerotic disease 1. Atherosclerotic plaque with foci of less than 50% stenosis involving both internal carotid arteries. 2. There is at least moderate focal stenosis of the mid right vertebral artery. 3. 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 -Added plavix, statin held / myopathy #Penile ulcer *resolved Purulent discharge noted on ulcer of foreskin near lawson catheter Urology consulted - suspect possible balanitis of the penis/foreskin which is likely both yeast and bacterial Wound culture MRSA--completed doxycycline EOT 08/15, mupirocin topically Continue CIC to prevent further foreskin compression/irritation q6h . Kandice GONZALES'd. #Ambulatory Dysfunction, myopathy #thoracic myelopathy #Failed Laminectomy syndrome Freq falls happening at home, pt with bruising on chest CK elevated, then downtrended CM consult for placement needs in this situation Ortho evaluated patient given left leg sensory loss and bilateral motor weakness: no surgical intervention given comorbidities stopped statin, fenofibrate and allopurinol and feels ? improved. Will likely need pcsk9i, pt to f/u w/ PCP office to initiate on this. Pt made aware. PT/OT Pending placement Need to continue turning patient q2h and helping to prevent breakdown on scrotum which is also swollen. Expect myopathy to be mcc, but may improve over the next several weeks. Awaiting placement #Disseminated Zoster *resolved New lesions on buttock c/w herpes zoster , Airborne precautions VZV/HSV swabs of lesions obtained, pending since 08/03 Plan for 14 days total of IV if positive EOT 08/10 - completed course. [place] capsaicin cream for neuralgia lesions dries and crusted on exam. #Rhabdomyolysis *resolved [CK elevated on admission, improved with rehydration efforts and stopped statin, fibrate]. #SRAVANI over CKD stage III: GFR ranges in 40s since 2019. SRAVANI has improved. Monitor BMP as needed. #DMII, h/o: A1c of 7.4 on 07/17/2023. Sliding scale insulin in hospital.Will monitor #HTN: not getting coreg 2/2 heart rates, will trial lisinopril given improved renal function . #Chronic Pain Has morphine pump [facility] [place] [facility] Consult placed to pain management for further pain management recs while in hosp Also on gabapentin, lyrica (noted both are gabapentinoids), cymbalta, tylenol for pain. Continue bowel regimen for chronic narcotic use- scheduled sennokot and metamucil, miralax ordered as pt on a pump Pain Consult placed on 07/16-no change in infusion worsened pain from shingles, gabapentin increased to 600mg TID and added PRN tramadol Pump filled 08/16/2023 by pain service with reduction 15% #Constipation Continue bowel regimen for chronic narcotic use Scheduled sennokot and metamucil, miralax as pt on a morphine pump Will monitor #HLD: Hold home statin and fibrate as may contribute to elevated CK and worsening myopathy. Will need f/u w/ PCP as OP for consideration of PCSK9i. BPH/LUTS: continue home meds Diet: Low sodium, DMII, FR 1800ml DVT prophylaxis: Lovenox CODE STATUS: DNR/DNI per POLST form Dispo: SNF Admission and Anticipated Discharge Date Admission Date: July 16, 2023 Subjective NAEO Desat study 1 desat ~38 sec Denies any new symptoms at this time Review of Systems Review of Systems: All systems reviewed & are unremarkable except as noted in Subjective Physical Exam Constitutional: WD/WN, vitals as above Respiratory: normal respiratory effort, lungs clear to auscultation Cardiovascular: RRR, no murmur, no edema Results & Data Results & Data Vital Signs (Past 12 Hours) Vital Signs Temp Pulse Pulse Pulse Resp BP BP 08/19/23 15:15 61 08/19/23 11:17 36.6 C 61 18 152/71 H 08/19/23 07:39 57 L 08/19/23 05:28 65 08/19/23 03:49 37 C 55 L 18 129/70 Pulse Ox Pulse Ox O2 Del Method O2 Del Method O2 Flow Rate O2 Flow Rate 08/19/23 15:15 08/19/23 11:17 95 Room Air 08/19/23 07:39 08/19/23 05:28 96 Nasal Cannula 1 08/19/23 03:49 98 Nasal Cannula 2
[2023-08-19] MEDS ORDERED: carvediloL 3.125 MG TAB PO ONE (15:44)
[2023-08-19] MEDS: TAMSULOSIN HCL 0.4 MG CAP PO SCH (21:43)
[2023-08-20] MEDS: GABAPENTIN 300 MG CAP PO SCH ×3 (09:21→21:13)
[2023-08-20] MEDS: INSULIN ASPART PER UNIT CHARGE SC SCH ×4 (09:22→21:12)
[2023-08-20] MEDS: SENNA 8.6 MG TAB PO SCH ×2 (09:22→21:12)
[2023-08-20] MEDS: CLOPIDOGREL BISULFATE 75 MG TAB PO SCH (09:23)
[2023-08-20] MEDS: PREGABALIN 50 MG CAP PO SCH ×2 (09:24→21:11)
[2023-08-20] MEDS: lisinopril 10 MG TAB PO SCH ×2 (09:25→21:13)
[2023-08-20] MEDS: ADVANCED PROBIOTIC 1250 MG CAPSULE PO SCH (09:25)
[2023-08-20] MEDS: FERROUS SULFATE 325 MG TAB PO SCH (09:25)
[2023-08-20] MEDS: POLYETHYLENE (MIRALAX) 17 GM PACK PO SCH (09:26)
[2023-08-20] MEDS: MUPIROCIN 2% OINT 22 GM TUBE EXT SCH ×3 (09:27→21:11)
[2023-08-20] MEDS: NYSTATIN OINT 15 GM TUBE EXT SCH ×2 (09:27→21:11)
--- NOTE | 2023-08-20 15:40 | Hospitalist Progress Note ---
Date of Service August 20, 2023 Assessment & Plan (1) Stroke-like episode: Plan: Mr. Yepez is an 83 year old gentleman with PMHx significant for chronic pain with morphine pump, DMII and BPH admitted for placement per family, after a few weeks of generalized progressive weakness, likely attributed to worsening myopathy and weakness after simultaneous UTI and herpes zoster infection in the setting of statin, fibrate therapy and allopurinol. Patient was noted to have lower extremity edema upon admission, which improved with IV diuresis. ECHO did not revealed diastolic dysfunction, but questionable PHTN. Further diuresis limited 2/2 SRAVANI, which is improving with cessation of lasix on 07/18. Patient with elevated CK since admission, IVF given fro 48 hours and stopped on 07/23 [facility] evaluated patient given chronic persistent lower back pain with new onset severe weakness in both of his legs. This was felt to be infection affecting his underlying failed laminectomy syndrome. No surgical intervention given complex comorbidities making patient poor candidate. Broadened coverage with zosyn on 07/22 2/2 fevers and clinically poor appearance--appears much better; notably lesion on buttock concerning for shingles recurrence. Discontinued Zosyn given negative infectious work up and pursue recurrent shingles treatment with contact precautions. Shingles treatment was escalated to IV acyclovir given concern for disseminated shingles. ID consulted and completed acyclovir 08/10. Consulted neurology. Initial suggestions included consideration for stopping statin, fibrate and allopurinol as all of these may contribute to myopathy (noted elevated CK, which is now normal). Patient's zoster lesions improved dramatically on exam; however, penile ulceration suspicious of necrosis from catheter. Urology assessed and recommended continuation of antibiotics for 1 week, which completed 08/15. Patient continued on CIC q 6h. Course has further been complicated by stroke-like episode, in which work up has been negative to date for stroke or other acute process; MRI negative for acute stroke. Given encephalopathy on EEG, consulted nephrology to review azotemia, in which no clear cause can be elucidated as it is likely multifactorial. Discussion with patient noted that he does have history of similar episodes, usually after awakening--given history of noncompliance with CPAP. He states he was taken off CPAP and transitioned to what seemed like nocturnal oxygen. Nocturnal study performed on 08/18 overnight did not reveal any hypoxic episodes (1 desat) that would warrant nocturnal o2. Patient remains admitted awaiting for placement. Now focused on keeping good spirits--encouraged exercise routine with "curls" and sand wheeler squeezes #NSVT 1 episode of NSVT, continue to monitor on telemetry discontinue BB 2/2 not getting it for days given heart rates in high 50s, asymptomatic If recurrence, will consult Cards Potentially correlated to episode of "bad dream" reported by patient -Will resume dose reduced coreg with hold parameter <55 -No further episodes #Stroke-like episode "08/14/23 Suddenly became unresponsive. Last well know around 2pm.baseline mi nimal movement of b/l extremities. Wheel chair bound and nurses have to feed him. On morphine Pump. IM narcan 0.2mg as patient iv line not working. IT was 3:30pm by that time IM narcan didnot helped much. So stroke alert was called.After CT scan was done patient woke up. Initially he was able to tell his name and knows his but thought he was in storage. Later could tell he is hospital.[facility] Neurologist evaluated the patient. As patient is mostly back to baseline except some confusion with dates thought probably medication related but wanted to do MRI head and also eeg for now and consult neurology in am. And to avoid sedatives.Held tramadol. Will monitor in med/tele for now." Remains at baseline EEG notable for encephalopathy Continue delirium precautions Nocturnal pulse oximetry unremarkable for hypoxia contributing to symptoms #Acute on chronic normocytic anemia #GRETTA +Chronic inflammation anemia -Anemia labs ordered -Hemoccult negative -Given encephalopathy, BUN without cause, myopathy that seems unexplained to the degree of currently severity, will order myositis labs to r/o other eitologies--CK in rare cases has been normal in different inflammatory myopathies and warrants r/o -Anemia labs: low iron, TIBC, and transferrin,with normal ferritin (mixed GRETTA/chronic disease) -Continue Iron supplementation #Azotemia *improving -No clear eitology, but noted to be uptrending since admission -Nephrology consulted to assess given issues with encephalopathy: -Completed doxycycline which can cause elevated BUN; no longer on fenofibrate/statin for >2 weeks -Avoid steroids -Hemoccult 08/14 negative and 22 -CK 31 #. Lower extremity edema #. Left UE edema Pt with significant lower extremity edema and left UE edema Chest xray with noted cardiomegaly; Echo 60% EF, pHTN, LVH Swelling near resolved LE on exam but is present in his hands/upper extremities now, likely related to poor movement/weakness, no reported heart failure LUE doppler negative for acute process. Doppler US LLE with low suspicion for clot/ Completed course of antibiotics for presumptive cellulitis on admission. Encourage L U extremity elevation and ambulation OOB to chair as tolerated. Swelling exacerbated by poor mobility. FR 1800 ml; iv lasix (give after clinical assessment on daily basis) w/ freq intermittent cath; increase protein content in diet. PO lasix on hold. Monitor and replete electrolytes. Mobilize LUE frequently, elevate above level of heart to help w/ swelling. currently not on diuretics #ASCVD CTA head Multifocal areas of moderate to severe stenosis within the intracranial vasculature as described above likely due to chronic atherosclerotic disease 1. Atherosclerotic plaque with foci of less than 50% stenosis involving both internal carotid arteries. 2. There is at least moderate focal stenosis of the mid right vertebral artery. 3. 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 -Added plavix, statin held 2/ myopathy #Penile ulcer *resolved Purulent discharge noted on ulcer of foreskin near lawson catheter Urology consulted - suspect possible balanitis of the penis/foreskin which is likely both yeast and bacterial Wound culture MRSA--completed doxycycline EOT 08/15, mupirocin topically Continue CIC to prevent further foreskin compression/irritation q6h . Kandice GONZALES' tereza. #Ambulatory Dysfunction, myopathy #thoracic myelopathy #Failed Laminectomy syndrome Freq falls happening at home, pt with bruising on chest CK elevated, then downtrended CM consult for placement needs in this situation Ortho evaluated patient given left leg sensory loss and bilateral motor weakness: no surgical intervention given comorbidities stopped statin, fenofibrate and allopurinol and feels ? improved. Will likely need [id number], pt to f/u w/ PCP office to initiate on this. Pt made aware. PT/OT Pending placement Need to continue turning patient q2h and helping to prevent breakdown on scrotum which is also swollen. 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 Awaiting placement #Disseminated Zoster *resolved New lesions on buttock c/w herpes zoster , Airborne precautions VZV/HSV swabs of lesions obtained, pending since 08/03 Plan for 14 days total of IV if positive EOT 08/10 - completed course. [place] capsaicin cream for neuralgia lesions dries and crusted on exam. #Rhabdomyolysis *resolved [CK elevated on admission, improved with rehydration efforts and stopped statin, fibrate]. #SRAVANI over CKD stage III: GFR ranges in 40s since 2019. SRAVANI has improved. Monitor BMP as needed. #DMII, h/o: A1c of 7.4 on 07/17/2023. Sliding scale insulin in hospital.Will monitor #HTN: not getting coreg 2/2 heart rates, will trial lisinopril given improved renal function . #Chronic Pain Has morphine pump managed by [facility] Pain management Consult placed to pain management for further pain management recs while in hosp Also on gabapentin, lyrica (noted both are gabapentinoids), cymbalta, tylenol for pain. Continue bowel regimen for chronic narcotic use- scheduled sennokot and metamucil, miralax ordered as pt on a pump Pain Consult placed on 07/16-no change in infusion worsened pain from shingles, gabapentin increased to 600mg TID and added PRN tramadol Pump filled 08/16/2023 by pain service with reduction 15% #Constipation Continue bowel regimen for chronic narcotic use Scheduled sennokot and metamucil, miralax as pt on a morphine pump Will monitor #HLD: Hold home statin and fibrate as may contribute to elevated CK and worsening myopathy. Will need f/u w/ PCP as OP for consideration of [id number]. BPH/LUTS: continue home meds Diet: Low sodium, DMII, FR 1800ml DVT prophylaxis: Lovenox CODE STATUS: DNR/DNI per POLST form Dispo: SNF Admission and Anticipated Discharge Date Admission Date: July 16, 2023 Subjective NAEO A bit tearful. Notes he is bored and unengaged Denies any new symptoms Encouraged exercise routine for right upper extremity Review of Systems Review of Systems: All systems reviewed & are unremarkable except as noted in Subjective Physical Exam Constitutional: WD/WN, vitals as above Respiratory: normal respiratory effort, lungs clear to auscultation Cardiovascular: RRR, no murmur, no edema Neurologic: moving right arm Results & Data Results & Data Vital Signs (Past 12 Hours) Vital Signs Temp Pulse Pulse Pulse Resp BP Pulse Ox 08/20/23 11:42 36.8 C 61 18 166/64 H 96 08/20/23 07:30 36.8 C 58 L 18 182/54 H 99 08/20/23 07:00 56 L 08/20/23 04:00 36.9 C 68 16 168/56 H 94 O2 Del Method 08/20/23 11:42 Room Air 08/20/23 07:30 Room Air 08/20/23 07:00 08/20/23 04:00 Room Air Medications Administered Home Medications Medication Instructions Recorded Confirmed Last Taken carvedilol 25 mg tablet 25 mg PO BID 06/11/18 07/16/23 07/16/23 allopurinol 300 mg tablet 300 mg PO QAM #30 tabs 11/02/18 07/16/23 07/16/23 semaglutide 1 mg/dose (2 mg/1.5 2 mg subcut WK 01/10/19 07/16/23 07/11/23 mL) subcutaneous pen injector (Prelert) fenofibrate nanocrystallized 145 145 mg PO QPM 05/22/19 07/16/23 07/15/23 mg tablet rosuvastatin 20 mg tablet 20 mg PO HS 05/22/19 07/16/23 07/15/23 tamsulosin 0.4 mg capsule 0.4 mg PO HS #90 caps 06/10/20 07/16/23 07/15/23 finasteride 5 mg tablet 5 mg PO QAM 05/07/21 07/16/23 07/16/23 mineral oil 30 ml PO QPM 05/07/21 07/16/23 07/15/23 multivitamin 1 tab PO QAM 05/07/21 07/16/23 07/16/23 psyllium husk 3.4 gram/5.4 gram 1 tbsp PO QAM 05/07/21 07/16/23 07/16/23 oral powder (Metamucil) MoRPHine PAIN PUMP 1 pump intrathecal UD #1 unit 04/27/22 07/16/23 07/16/23 naloxone 4 mg/actuation nasal 1 spray intranasal Q3M PRN opioid 04/27/22 07/16/23 Unknown spray (Narcan) overdose #2 ea dapagliflozin propanediol 5 mg 5 mg PO DAILY 05/11/22 07/16/23 07/16/23 tablet (Farxiga) insulin degludec 100 unit/mL 34 unit subcut HS 05/11/22 07/16/23 07/15/23 subcutaneous solution (Tresiba U-100 Insulin) acetaminophen 650 mg 650 - 1,300 mg PO Q8H 12/02/22 07/16/23 07/16/23 tablet,extended release (Tylenol 8 Hour) duloxetine 20 mg capsule,delayed 20 mg PO DAILY 12/02/22 07/16/23 07/15/23 release gabapentin 300 mg capsule 300 mg PO TID 12/02/22 07/16/23 07/16/23 sennosides 8.6 mg tablet (Natural 8.6 mg PO DAILY 12/02/22 07/16/23 07/15/23 Senna Laxative) aspirin 81 mg tablet,delayed 81 mg PO QAM 12/21/22 07/16/23 07/16/23 release (Aspir-) pregabalin 50 mg capsule (Lyrica) 50 mg PO BID 07/16/23 07/16/23 Unknown valacyclovir 1 gram tablet 1,000 mg PO TID 07/16/23 07/16/23 Unknown (Valtrex) Active Medications Generic Name Dose Route Start Last Admin Trade Name Justo PRN Reason Stop Dose Admin Clopidogrel Bisulfate 75 mg 08/19/23 09:00 08/20/23 09:23 Clopidogrel Bisulfate 75 Mg Tab PO 09/18/23 08:59 75 mg QAM SARITA Administration Ferrous Sulfate 325 mg 08/18/23 09:00 08/20/23 09:25 Ferrous Sulfate 325 Mg Tab PO 09/17/23 08:59 325 mg QAM SARITA Administration Gabapentin 600 mg 07/31/23 21:00 08/20/23 13:08 Gabapentin 300 Mg Cap PO 08/30/23 20:59 600 mg TID SARITA Administration Insulin Aspart 0 units 08/15/23 22:00 08/20/23 13:07 Insulin Aspart Per Unit Charge SC 09/14/23 21:59 6 units ACHS SARITA Administration Lactobacillus Acidophilus 2 cap 08/13/23 09:00 08/20/23 09:25 Advanced Probiotic 1250 Mg Capsule PO 09/12/23 08:59 2 cap DAILY SARITA Administration Lisinopril 10 mg 08/20/23 09:00 08/20/23 09:25 Lisinopril 10 Mg Tab PO 09/19/23 08:59 10 mg BID SARITA Administration Mupirocin 1 appln 07/23/23 09:00 08/20/23 13:07 Mupirocin 2% Oint 22 Gm Tube EXT 08/22/23 08:59 1 appln TID SARITA Administration Nystatin 1 appln 08/04/23 21:00 08/20/23 09:27 Nystatin Oint 15 Gm Tube EXT 09/03/23 20:59 1 appln BID SARITA Administration Polyethylene Glycol 17 gm 08/19/23 09:00 08/20/23 09:26 Polyethylene (Miralax) 17 Gm Pack PO 09/18/23 08:59 17 gm DAILY SARITA Administration Pregabalin 50 mg 08/15/23 22:00 08/20/23 09:24 Pregabalin 50 Mg Cap PO 09/14/23 21:59 50 mg BID SARITA Administration Sennosides 8.6 mg 07/22/23 13:00 08/20/23 09:22 Senna 8.6 Mg Tab PO 08/21/23 12:59 8.6 mg BID SARITA Administration Tamsulosin HCl 0.4 mg 08/15/23 22:00 08/19/23 21:43 Tamsulosin Hcl 0.4 Mg Cap PO 09/14/23 21:59 0.4 mg HS SARITA Administration
[2023-08-20] MEDS: TAMSULOSIN HCL 0.4 MG CAP PO SCH (21:12)
[2023-08-21 07:56] LABS: Hematocrit (blood only) 28.7 % (42.0-52.0); Mean Corpuscular Hemoglobin 29.3 pg (25.0-34.0); Mean Corpuscular Hgb Conc 31.4 g/dL (32.0-36.0); Mean Corpuscular Volume 93.5 fL (80.0-100.0); Mean Platelet Volume 10.2 fL (9.4-12.4); Platelet Count 346 K/uL (130-400); RDW Standard Deviation 58.1 fL (36.4-46.3); Red Blood Count 3.07 M/uL (4.70-6.10); White Blood Count 6.95 K/ul (4.8-10.8)
[2023-08-21 08:12] LABS: BUN Creatinine Ratio 70.9 (10-20); Calcium 9.7 mg/dl (8.6-10.3); Creatinine Clr Calc Pharmacy 79.1 ml/min; Est GFR (African American) 93.6 ml/min; Est GFR (Non-African American) 80.8 ml/min; Magnesium 1.9 mg/dl (1.7-2.4); Phosphorus 3.7 mg/dl (2.5-4.9); Potassium 5.1 mmol/L (3.5-5.1)
[2023-08-21] MEDS: POLYETHYLENE (MIRALAX) 17 GM PACK PO SCH (09:00)
[2023-08-21] MEDS: GABAPENTIN 300 MG CAP PO SCH ×3 (09:00→20:42)
[2023-08-21] MEDS: PREGABALIN 50 MG CAP PO SCH ×2 (09:00→20:45)
[2023-08-21] MEDS: INSULIN ASPART PER UNIT CHARGE SC SCH ×4 (09:00→20:41)
[2023-08-21] MEDS: NYSTATIN OINT 15 GM TUBE EXT SCH ×2 (09:00→20:43)
[2023-08-21] MEDS: CLOPIDOGREL BISULFATE 75 MG TAB PO SCH (09:01)
[2023-08-21] MEDS: lisinopril 10 MG TAB PO SCH ×2 (09:01→20:43)
[2023-08-21] MEDS: ADVANCED PROBIOTIC 1250 MG CAPSULE PO SCH (09:01)
[2023-08-21] MEDS: FERROUS SULFATE 325 MG TAB PO SCH (09:01)
[2023-08-21] MEDS: SENNA 8.6 MG TAB PO SCH (09:01)
[2023-08-21] MEDS: MUPIROCIN 2% OINT 22 GM TUBE EXT SCH ×3 (09:02→20:44)
--- NOTE | 2023-08-21 15:53 | Hospitalist Progress Note ---
Date of Service August 21, 2023 Assessment & Plan (1) Stroke-like episode: Plan: Mr. Yepez is an 83 year old gentleman with PMHx significant for chronic pain with morphine pump, DMII and BPH admitted for placement per family, after a few weeks of generalized progressive weakness, likely attributed to worsening myopathy and weakness after simultaneous UTI and herpes zoster infection in the setting of statin, fibrate therapy and allopurinol. Patient was noted to have lower extremity edema upon admission, which improved with IV diuresis. ECHO did not revealed diastolic dysfunction, but questionable PHTN. Further diuresis limited 2/2 SRAVANI, which is improving with cessation of lasix on 07/18. Patient with elevated CK since admission, IVF given fro 48 hours and stopped on 07/23 [facility] evaluated patient given chronic persistent lower back pain with new onset severe weakness in both of his legs. This was felt to be infection affecting his underlying failed laminectomy syndrome. No surgical intervention given complex comorbidities making patient poor candidate. Broadened coverage with zosyn on 07/22 2/2 fevers and clinically poor appearance--appears much better; notably lesion on buttock concerning for shingles recurrence. Discontinued Zosyn given negative infectious work up and pursue recurrent shingles treatment with contact precautions. Shingles treatment was escalated to IV acyclovir given concern for disseminated shingles. ID consulted and completed acyclovir 08/10. Consulted neurology. Initial suggestions included consideration for stopping statin, fibrate and allopurinol as all of these may contribute to myopathy (noted elevated CK, which is now normal). Patient's zoster lesions improved dramatically on exam; however, penile ulceration suspicious of necrosis from catheter. Urology assessed and recommended continuation of antibiotics for 1 week, which completed 08/15. Patient continued on CIC q 6h. Course has further been complicated by stroke-like episode, in which work up has been negative to date for stroke or other acute process; MRI negative for acute stroke. Given encephalopathy on EEG, consulted nephrology to review azotemia, in which no clear cause can be elucidated as it is likely multifactorial. Discussion with patient noted that he does have history of similar episodes, usually after awakening--given history of noncompliance with CPAP. He states he was taken off CPAP and transitioned to what seemed like nocturnal oxygen. Nocturnal study performed on 08/18 overnight did not reveal any hypoxic episodes (1 desat) that would warrant nocturnal o2. Patient remains admitted awaiting for placement. Now focused on keeping good spirits--encouraged exercise routine with "curls" and neuro urologist squeezes Pending placement. Wound care with aggressive management and repositioning of pressure ulcers. #Deep Tissue injury, right buttock pressure ulcer #Left posterior heel pressure ulcer #Right posterior heel pressure ulcer -POA, see wound care -Management per wound care, new bed/low air loss/waffler boots #NSVT 1 episode of NSVT, continue to monitor on telemetry discontinue BB 2/2 not getting it for days given heart rates in high 50s, asymp tomatic If recurrence, will consult Cards Potentially correlated to episode of "bad dream" reported by patient -Will resume dose reduced coreg with hold parameter <55 -No further episodes #Stroke-like episode "08/14/23 Suddenly became unresponsive. Last well know around 2pm.baseline minimal movement of b/l extremities. Wheel chair bound and nurses have to feed him. On morphine Pump. IM narcan 0.2mg as patient iv line not working. IT was 3:30pm by that time IM narcan didnot helped much. So stroke alert was called.After CT scan was done patient woke up. Initially he was able to tell his name and knows his but thought he was in storage. Later could tell he is hospital.[place] [facility] Neurologist evaluated the patient. As patient is mostly back to baseline except some confusion with dates thought probably medication related but wanted to do MRI head and also eeg for now and consult neurology in am. And to avoid sedatives.Held tramadol. Will monitor in med/tele for now." Remains at baseline EEG notable for encephalopathy Continue delirium precautions Nocturnal pulse oximetry unremarkable for hypoxia contributing to symptoms #Acute on chronic normocytic anemia #GRETTA +Chronic inflammation anemia -Anemia labs ordered -Hemoccult negative -Given encephalopathy, BUN without cause, myopathy that seems unexplained to the degree of currently severity, will order myositis labs to r/o other eitologies--CK in rare cases has been normal in different inflammatory myopathies and warrants r/o -Anemia labs: low iron, TIBC, and transferrin,with normal ferritin (mixed GRETTA/chronic disease) -Continue Iron supplementation #Azotemia *improving -No clear eitology, but noted to be uptrending since admission -Nephrology consulted to assess given issues with encephalopathy: -Completed doxycycline which can cause elevated BUN; no longer on fenofibrate/statin for >2 weeks -Avoid steroids -Hemoccult 08/14 negative and 22 -CK 31 #. Lower extremity edema #. Left UE edema Pt with significant lower extremity edema and left UE edema Chest xray with noted cardiomegaly; Echo 60% EF, pHTN, LVH Swelling near resolved LE on exam but is present in his hands/upper extremities now, likely related to poor movement/weakness, no reported heart failure LUE doppler negative for acute process. Doppler US LLE with low suspicion for clot/ Completed course of antibiotics for presumptive cellulitis on admission. Encourage L U extremity elevation and ambulation OOB to chair as tolerated. Swelling exacerbated by poor mobility. FR 1800 ml; iv lasix (give after clinical assessment on daily basis) w/ freq intermittent cath; increase protein content in diet. PO lasix on hold. Monitor and replete electrolytes. Mobilize LUE frequently, elevate above level of heart to help w/ swelling. currently not on diuretics #ASCVD CTA head Multifocal areas of moderate to severe stenosis within the intracranial vasculature as described above likely due to chronic atherosclerotic disease 1. Atherosclerotic plaque with foci of less than 50% stenosis involving both internal carotid arteries. 2. There is at least moderate focal stenosis of the mid right vertebral artery. 3. 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 -Added plavix, statin held 2/2 myopathy #Penile ulcer *resolved Purulent discharge noted on ulcer of foreskin near lawson catheter Urology consulted - suspect possible balanitis of the penis/foreskin which is likely both yeast and bacterial Wound culture MRSA--completed doxycycline EOT 08/15, mupirocin topically Continue CIC to prevent further foreskin compression/irritation q6h . Kandice GONZALES'tereza. #Ambulatory Dysfunction, myopathy #thoracic myelopathy #Failed Laminectomy syndrome Freq falls happening at home, pt with bruising on chest CK elevated, then downtrended CM consult for placement needs in this situation Ortho evaluated patient given left leg sensory loss and bilateral motor weakness: no surgical intervention given comorbidities stopped statin, fenofibrate and allopurinol and feels ? improved. Will likely need pcsk9i, pt to f/u w/ PCP office to initiate on this. Pt made aware. PT/OT Pending placement Need to continue turning patient q2h and helping to prevent breakdown on scrotum which is also swollen. Expect myopathy to be termite helper, but may improve over the next several weeks. Awaiting placement #Disseminated Zoster *resolved New lesions on buttock c/w herpes zoster , Airborne precautions VZV/HSV swabs of lesions obtained, pending since 08/03 Plan for 14 days total of IV if positive EOT 08/10 - completed course. [place] capsaicin cream for neuralgia lesions dries and crusted on exam. #Rhabdomyolysis *resolved [CK elevated on admission, improved with rehydration efforts and stopped statin, fibrate]. #SRAVANI over CKD stage III: GFR ranges in 40s since 2019. SRAVANI has improved. Monitor BMP as needed. #DMII, h/o: A1c of 7.4 on 07/17/2023. Sliding scale insulin in hospital.Will monitor #HTN: not getting coreg 2/2 heart rates, will trial lisinopril given improved renal function . #Chronic Pain Has morphine pump [facility] Consult placed to pain management for further pain management recs while in hosp Also on gabapentin, lyrica (noted both are gabapentinoids), cymbalta, tylenol for pain. Continue bowel regimen for chronic narcotic use- scheduled sennokot and metamucil, miralax ordered as pt on a pump Pain Consult placed on 07/16-no change in infusion worsened pain from shingles, gabapentin increased to 600mg TID and added PRN tramadol Pump filled 08/16/2023 by pain service with reduction 15% #Constipation Continue bowel regimen for chronic narcotic use Scheduled sennokot and metamucil, miralax as pt on a morphine pump Will monitor #HLD: Hold home statin and fibrate as may contribute to elevated CK and worsening myopathy. Will need f/u w/ PCP as OP for consideration of PCSK9i. BPH/LUTS: continue home meds Diet: Low sodium, DMII, FR 1800ml DVT prophylaxis: Lovenox CODE STATUS: DNR/DNI per POLST form Dispo: SNF Admission and Anticipated Discharge Date Admission Date: July 16, 2023 Subjective NAEO Reports feeling in better spirits this am Review of Systems Review of Systems: All systems reviewed & are unremarkable except as noted in Subjective Physical Exam Constitutional: WD/WN, vitals as above Respiratory: normal respiratory effort, lungs clear to auscultation Cardiovascular: RRR, no murmur, no edema Results & Data Results & Data Vital Signs (Past 12 Hours) Vital Signs Temp Pulse Pulse Resp BP Pulse Ox O2 Del Method 08/21/23 11:48 36.4 C L 56 L 18 118/60 97 Room Air 08/21/23 09:55 60 08/21/23 07:49 36.7 C 53 L 18 119/49 L 96 Room Air Laboratory Results Short CBC 08/21/23 Range/Units 07:17 WBC 6.95 (4.8-10.8) K/ul Hgb 9.0 L (14.0-18.0) g/dl Hct 28.7 L (42.0-52.0) % Plt Count 346 (130-400) K/uL BMP 08/21/23 07:17 Sodium 139 Potassium 5.1 Chloride 108 H Carbon Dioxide 26 BUN 61 H Creatinine 0.86 Glucose 141 H Calcium 9.7 Medications Administered Home Medications Medication Instructions Recorded Confirmed Last Taken carvedilol 25 mg tablet 25 mg PO BID 06/11/18 07/16/23 07/16/23 allopurinol 300 mg tablet 300 mg PO QAM #30 tabs 11/02/18 07/16/23 07/16/23 semaglutide 1 mg/dose (2 mg/1.5 2 mg subcut WK 01/10/19 07/16/23 07/11/23 mL) subcutaneous pen injector (Ozempic) fenofibrate nanocrystallized 145 145 mg PO QPM 05/22/19 07/16/23 07/15/23 mg tablet rosuvastatin 20 mg tablet 20 mg PO HS 05/22/19 07/16/23 07/15/23 tamsulosin 0.4 mg capsule 0.4 mg PO HS #90 caps 06/10/20 07/16/23 07/15/23 finasteride 5 mg tablet 5 mg PO QAM 05/07/21 07/16/23 07/16/23 mineral oil 30 ml PO QPM 05/07/21 07/16/23 07/15/23 multivitamin 1 tab PO QAM 05/07/21 07/16/23 07/16/23 psyllium husk 3.4 gram/5.4 gram 1 tbsp PO QAM 05/07/21 07/16/23 07/16/23 oral powder (Metamucil) MoRPHine PAIN PUMP 1 pump intrathecal UD #1 unit 04/27/22 07/16/23 07/16/23 naloxone 4 mg/actuation nasal 1 spray intranasal Q3M PRN opioid 04/27/22 07/16/23 Unknown spray (Narcan) overdose #2 ea dapagliflozin propanediol 5 mg 5 mg PO DAILY 05/11/22 07/16/23 07/16/23 tablet (Farxiga) insulin degludec 100 unit/mL 34 unit subcut HS 05/11/22 07/16/23 07/15/23 subcutaneous solution (Tresiba U-100 Insulin) acetaminophen 650 mg 650 - 1,300 mg PO Q8H 12/02/22 07/16/23 07/16/23 tablet,extended release (Tylenol 8 Hour) duloxetine 20 mg capsule,delayed 20 mg PO DAILY 12/02/22 07/16/23 07/15/23 release gabapentin 300 mg capsule 300 mg PO TID 12/02/22 07/16/23 07/16/23 sennosides 8.6 mg tablet (Natural 8.6 mg PO DAILY 12/02/22 07/16/23 07/15/23 Senna Laxative) aspirin 81 mg tablet,delayed 81 mg PO QAM 12/21/22 07/16/23 07/16/23 release (Aspir-) pregabalin 50 mg capsule (Lyrica) 50 mg PO BID 07/16/23 07/16/23 Unknown valacyclovir 1 gram tablet 1,000 mg PO TID 07/16/23 07/16/23 Unknown (Valtrex) Active Medications Generic Name Dose Route Start Last Admin Trade Name Freq PRN Reason Stop Dose Admin Clopidogrel Bisulfate 75 mg 08/19/23 09:00 08/21/23 09:01 Clopidogrel Bisulfate 75 Mg Tab PO 09/18/23 08:59 75 mg QAM SARITA Administration Ferrous Sulfate 325 mg 08/18/23 09:00 08/21/23 09:01 Ferrous Sulfate 325 Mg Tab PO 09/17/23 08:59 325 mg QAM SARITA Administration Gabapentin 600 mg 07/31/23 21:00 08/21/23 12:50 Gabapentin 300 Mg Cap PO 08/30/23 20:59 600 mg TID SARITA Administration Insulin Aspart 0 units 08/15/23 22:00 08/21/23 12:50 Insulin Aspart Per Unit Charge SC 09/14/23 21:59 3 units ACHS SARITA Administration Lactobacillus Acidophilus 2 cap 08/13/23 09:00 08/21/23 09:01 Advanced Probiotic 1250 Mg Capsule PO 09/12/23 08:59 2 cap DAILY SARITA Administration Lisinopril 10 mg 08/20/23 09:00 08/21/23 09:01 Lisinopril 10 Mg Tab PO 09/19/23 08:59 10 mg BID SARITA Administration Mupirocin 1 appln 07/23/23 09:00 08/21/23 12:50 Mupirocin 2% Oint 22 Gm Tube EXT 08/22/23 08:59 1 appln TID SARITA Administration Nystatin 1 appln 08/04/23 21:00 08/21/23 09:00 Nystatin Oint 15 Gm Tube EXT 09/03/23 20:59 1 appln BID SARITA Administration Polyethylene Glycol 17 gm 08/19/23 09:00 08/21/23 09:00 Polyethylene (Miralax) 17 Gm Pack PO 09/18/23 08:59 17 gm DAILY SARITA Administration Pregabalin 50 mg 08/15/23 22:00 08/21/23 09:00 Pregabalin 50 Mg Cap PO 09/14/23 21:59 50 mg BID SARITA Administration Tamsulosin HCl 0.4 mg 08/15/23 22:00 08/20/23 21:12 Tamsulosin Hcl 0.4 Mg Cap PO 09/14/23 21:59 0.4 mg HS SARITA Administration
[2023-08-21] MEDS: TAMSULOSIN HCL 0.4 MG CAP PO SCH (20:43)
[2023-08-22] MEDS: lisinopril 10 MG TAB PO SCH ×2 (08:28→19:36)
[2023-08-22] MEDS: NYSTATIN OINT 15 GM TUBE EXT SCH ×2 (08:28→19:33)
[2023-08-22] MEDS: PREGABALIN 50 MG CAP PO SCH ×2 (08:28→19:35)
[2023-08-22] MEDS: ADVANCED PROBIOTIC 1250 MG CAPSULE PO SCH (08:28)
[2023-08-22] MEDS: CLOPIDOGREL BISULFATE 75 MG TAB PO SCH (08:28)
[2023-08-22] MEDS: POLYETHYLENE (MIRALAX) 17 GM PACK PO SCH (08:28)
[2023-08-22] MEDS: GABAPENTIN 300 MG CAP PO SCH ×3 (08:28→19:35)
[2023-08-22] MEDS: FERROUS SULFATE 325 MG TAB PO SCH (08:28)
[2023-08-22] MEDS: INSULIN ASPART PER UNIT CHARGE SC SCH ×4 (09:14→21:03)
--- NOTE | 2023-08-22 12:18 | Hospitalist Progress Note ---
Date of Service August 22, 2023 Assessment & Plan (1) Stroke-like episode: Plan: Mr. Yepez is an 83 year old gentleman with PMHx significant for chronic pain with morphine pump, DMII and BPH admitted for placement per family, after a few weeks of generalized progressive weakness, likely attributed to worsening myopathy and weakness after simultaneous UTI and herpes zoster infection in the setting of statin, fibrate therapy and allopurinol. Patient was noted to have lower extremity edema upon admission, which improved with IV diuresis. ECHO did not revealed diastolic dysfunction, but questionable PHTN. Further diuresis limited 2/2 SRAVANI, which is improving with cessation of lasix on 07/18. Patient with elevated CK since admission, IVF given fro 48 hours and stopped on 07/23 [facility] evaluated patient given chronic persistent lower back pain with new onset severe weakness in both of his legs. This was felt to be infection affecting his underlying failed laminectomy syndrome. No surgical intervention given complex comorbidities making patient poor candidate. Broadened coverage with zosyn on 07/22 2/2 fevers and clinically poor appearance--appears much better; notably lesion on buttock concerning for shingles recurrence. Discontinued Zosyn given negative infectious work up and pursue recurrent shingles treatment with contact precautions. Shingles treatment was escalated to IV acyclovir given concern for disseminated shingles. ID consulted and completed acyclovir 08/10. Consulted neurology. Initial suggestions included consideration for stopping statin, fibrate and allopurinol as all of these may contribute to myopathy (noted elevated CK, which is now normal). Patient's zoster lesions improved dramatically on exam; however, penile ulceration suspicious of necrosis from catheter. Urology assessed and recommended continuation of antibiotics for 1 week, which completed 08/15. Patient continued on CIC q 6h. Course has further been complicated by stroke-like episode, in which work up has been negative to date for stroke or other acute process; MRI negative for acute stroke. Given encephalopathy on EEG, consulted nephrology to review azotemia, in which no clear cause can be elucidated as it is likely multifactorial. Discussion with patient noted that he does have history of similar episodes, usually after awakening--given history of noncompliance with CPAP. He states he was taken off CPAP and transitioned to what seemed like nocturnal oxygen. Nocturnal study performed on 08/18 overnight did not reveal any hypoxic episodes (1 desat) that would warrant nocturnal o2. Patient remains admitted awaiting for placement. 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 Wound care with aggressive management and repositioning of pressure ulcers. Patient with heart rates in 50s mostly, asymptomatic; however, low threshold to consult cardiology if sustained of symptomatic. No beds available as of yet for intermediate card tender placement. #Deep Tissue injury, right buttock pressure ulcer #Left posterior heel pressure ulcer #Right posterior heel pressure ulcer -POA, see wound care -Management per wound care, new bed/low air loss/waffle boots #Asymptomatic Bradycardia #NSVT x1 1 episode of NSVT, continue to monitor on telemetry discontinue BB 2/2 not getting it for days given heart rates in high 50s, asymptomatic If recurrence, will consult Cards Potentially correlated to episode of "bad dream" reported by patient -Will resume dose reduced coreg with hold parameter <55; did not tolerate AV block noted on EKG--avoid BB -Patient asymptomatic, HR in 40s during sleep--shows chronotropic competence with increased movement of right upper extremity -Low threshold of Cardiology consult if symptomatic -No further episodes #Stroke-like episode "08/14/23 Suddenly became unresponsive. Last well know around 2pm.baseline minimal movement of b/l extremities. Wheel chair bound and nurses have to feed him. On morphine Pump. IM narcan 0.2mg as patient iv line not working. IT was 3:30pm by that time IM narcan didnot helped much. So stroke alert was call ed.After CT scan was done patient woke up. Initially he was able to tell his name and knows his but thought he was in storage. Later could tell he is hospital.Jamm[facility] Stroke Neurologist evaluated the patient. As patient is mostly back to baseline except some confusion with dates thought probably medication related but wanted to do MRI head and also eeg for now and consult neurology in am. And to avoid sedatives.Held tramadol. Will monitor in med/tele for now." Remains at baseline EEG notable for encephalopathy Continue delirium precautions Nocturnal pulse oximetry unremarkable for hypoxia contributing to symptoms #Acute on chronic normocytic anemia *stable #GRETTA +Chronic inflammation anemia -Anemia labs ordered -Hemoccult negative -Given encephalopathy, BUN without cause, myopathy that seems unexplained to the degree of currently severity, will order myositis labs to r/o other eitologies--CK in rare cases has been normal in different inflammatory myopathies and warrants r/o -Progressive pressure ulcers likely contributing to occult losses -Anemia labs: low iron, TIBC, and transferrin,with normal ferritin (mixed GRETTA/chronic disease) -Continue Iron supplementation #Azotemia *improving -No clear eitology, but noted to be uptrending since admission -Nephrology consulted to assess given issues with encephalopathy: -Completed doxycycline which can cause elevated BUN; no longer on fenofibrate/statin for >2 weeks -Avoid steroids -Hemoccult 08/14 negative and 22 -CK 31 #. Lower extremity edema #. Left UE edema Pt with significant lower extremity edema and left UE edema Chest xray with noted cardiomegaly; Echo 60% EF, pHTN, LVH Swelling near resolved LE on exam but is present in his hands/upper extremities now, likely related to poor movement/weakness, no reported heart failure LUE doppler negative for acute process. Doppler US LLE with low suspicion for clot/ Completed course of antibiotics for presumptive cellulitis on admission. Encourage L U extremity elevation and ambulation OOB to chair as tolerated. Swelling exacerbated by poor mobility. FR 1800 ml; iv lasix (give after clinical assessment on daily basis) w/ freq intermittent cath; increase protein content in diet. PO lasix on hold. Monitor and replete electrolytes. Mobilize LUE frequently, elevate above level of heart to help w/ swelling. currently not on diuretics #ASCVD CTA head Multifocal areas of moderate to severe stenosis within the intracranial vasculature as described above likely due to chronic atherosclerotic disease 1. Atherosclerotic plaque with foci of less than 50% stenosis involving both internal carotid arteries. 2. There is at least moderate focal stenosis of the mid right vertebral artery. 3. 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 -Added plavix, statin held 2/2 myopathy #Penile ulcer *resolved Purulent discharge noted on ulcer of foreskin near lawson catheter Urology consulted - suspect possible balanitis of the penis/foreskin which is likely both yeast and bacterial Wound culture MRSA--completed doxycycline EOT 08/15, mupirocin topically Continue CIC to prevent further foreskin compression/irritation q6h . Kandice GONZALES'd. #Ambulatory Dysfunction, myopathy #thoracic myelopathy #Failed Laminectomy syndrome Freq falls happening at home, pt with bruising on chest CK elevated, then downtrended CM consult for placement needs in this situation Ortho evaluated patient given left leg sensory loss and bilateral motor weakness: no surgical intervention given comorbidities stopped statin, fenofibrate and allopurinol and feels ? improved. Will likely need [id number], pt to f/u w/ PCP office to initiate on this. Pt made aware. PT/OT Pending placement Need to continue turning patient q2h and helping to prevent breakdown on scrotum which is also swollen. Expect myopathy to be group home, but may improve over the next several weeks. Awaiting placement #Disseminated Zoster *resolved New lesions on buttock c/w herpes zoster , Airborne precautions VZV/HSV swabs of lesions obtained, pending since 08/03 Plan for 14 days total of IV if positive EOT 08/10 - completed course. [place] capsaicin cream for neuralgia lesions dries and crusted on exam. #Rhabdomyolysis *resolved [CK elevated on admission, improved with rehydration efforts and stopped statin, fibrate]. #SRAVANI over CKD stage III: GFR ranges in 40s since 2019. SRAVANI has improved. Monitor BMP as needed. #DMII, h/o: A1c of 7.4 on 07/17/2023. Sliding scale insulin in hospital.Will monitor #HTN: not getting coreg 2/2 heart rates, lisinopril 20mg bid, will adjust regimen as toleated. . #Chronic Pain Has morphine pump managed by [facility] Consult placed to pain management for further pain management recs while in hosp Also on gabapentin, lyrica (noted both are gabapentinoids), cymbalta, tylenol for pain. Continue bowel regimen for chronic narcotic use- scheduled sennokot and metamucil, miralax ordered as pt on a pump Pain Consult placed on 07/16-no change in infusion worsened pain from shingles, gabapentin increased to 600mg TID and added PRN tramadol Pump filled 08/16/2023 by pain service with reduction 15% #Constipation Continue bowel regimen for chronic narcotic use Scheduled sennokot and metamucil, miralax as pt on a morphine pump Will monitor #HLD: Hold home statin and fibrate as may contribute to elevated CK and worsening myopathy. Will need f/u w/ PCP as OP for consideration of [id number]. BPH/LUTS: continue home meds Diet: Low sodium, DMII, FR 1800ml DVT prophylaxis: Lovenox CODE STATUS: DNR/DNI per POLST form Dispo: SNF Admission and Anticipated Discharge Date Admission Date: July 16, 2023 Subjective NAEO Reports trying to keep up with arm exercises, Denies any chest pain, SOB or acute concerns at this time Review of Systems Review of Systems: All systems reviewed & are unremarkable except as noted in Subjective Physical Exam Constitutional: WD/WN, vitals as above Respiratory: normal respiratory effort, lungs clear to auscultation Cardiovascular: RRR, no murmur, no edema Results & Data Results & Data Vital Signs (Past 12 Hours) Vital Signs Temp Pulse Pulse Pulse Resp BP Pulse Ox 08/22/23 11:19 36.4 C L 53 L 18 144/68 H 97 08/22/23 09:58 55 L 08/22/23 07:18 36.3 C L 50 L 18 151/54 H 98 08/22/23 03:37 35.6 C L 63 18 145/57 H 98 08/22/23 00:22 60 O2 Del Method 08/22/23 11:19 Room Air 08/22/23 09:58 08/22/23 07:18 Room Air 08/22/23 03:37 Room Air 08/22/23 00:22 Laboratory Results BMP in am Medications Administered Home Medications Medication Instructions Recorded Confirmed Last Taken carvedilol 25 mg tablet 25 mg PO BID 06/11/18 07/16/23 07/16/23 allopurinol 300 mg tablet 300 mg PO QAM #30 tabs 11/02/18 07/16/23 07/16/23 semaglutide 1 mg/dose (2 mg/1.5 2 mg subcut WK 01/10/19 07/16/23 07/11/23 mL) subcutaneous pen injector (Ozempic) fenofibrate nanocrystallized 145 145 mg PO QPM 05/22/19 07/16/23 07/15/23 mg tablet rosuvastatin 20 mg tablet 20 mg PO HS 05/22/19 07/16/23 07/15/23 tamsulosin 0.4 mg capsule 0.4 mg PO HS #90 caps 06/10/20 07/16/23 07/15/23 finasteride 5 mg tablet 5 mg PO QAM 05/07/21 07/16/23 07/16/23 mineral oil 30 ml PO QPM 05/07/21 07/16/23 07/15/23 multivitamin 1 tab PO QAM 05/07/21 07/16/23 07/16/23 psyllium husk 3.4 gram/5.4 gram 1 tbsp PO QAM 05/07/21 07/16/23 07/16/23 oral powder (Metamucil) MoRPHine PAIN PUMP 1 pump intrathecal UD #1 unit 04/27/22 07/16/23 07/16/23 naloxone 4 mg/actuation nasal 1 spray intranasal Q3M PRN opioid 04/27/22 07/16/23 Unknown spray (Narcan) overdose #2 ea dapagliflozin propanediol 5 mg 5 mg PO DAILY 05/11/22 07/16/23 07/16/23 tablet (Farxiga) insulin degludec 100 unit/mL 34 unit subcut HS 05/11/22 07/16/23 07/15/23 subcutaneous solution (Tresiba U-100 Insulin) acetaminophen 650 mg 650 - 1,300 mg PO Q8H 12/02/22 07/16/23 07/16/23 tablet,extended release (Tylenol 8 Hour) duloxetine 20 mg capsule,delayed 20 mg PO DAILY 12/02/22 07/16/23 07/15/23 release gabapentin 300 mg capsule 300 mg PO TID 12/02/22 07/16/23 07/16/23 sennosides 8.6 mg tablet (Natural 8.6 mg PO DAILY 12/02/22 07/16/23 07/15/23 Senna Laxative) aspirin 81 mg tablet,delayed 81 mg PO QAM 12/21/22 07/16/23 07/16/23 release (Aspir-) pregabalin 50 mg capsule (Lyrica) 50 mg PO BID 07/16/23 07/16/23 Unknown valacyclovir 1 gram tablet 1,000 mg PO TID 07/16/23 07/16/23 Unknown (Valtrex) Active Medications Generic Name Dose Route Start Last Admin Trade Name Freq PRN Reason Stop Dose Admin Clopidogrel Bisulfate 75 mg 08/19/23 09:00 08/22/23 08:28 Clopidogrel Bisulfate 75 Mg Tab PO 09/18/23 08:59 75 mg QAM SARITA Administration Ferrous Sulfate 325 mg 08/18/23 09:00 08/22/23 08:28 Ferrous Sulfate 325 Mg Tab PO 09/17/23 08:59 325 mg QAM SARITA Administration Gabapentin 600 mg 07/31/23 21:00 08/22/23 08:28 Gabapentin 300 Mg Cap PO 08/30/23 20:59 600 mg TID SARITA Administration Insulin Aspart 0 units 08/15/23 22:00 08/22/23 09:14 Insulin Aspart Per Unit Charge SC 09/14/23 21:59 2 units ACHS SARITA Administration Lactobacillus Acidophilus 2 cap 08/13/23 09:00 08/22/23 08:28 Advanced Probiotic 1250 Mg Capsule PO 09/12/23 08:59 2 cap DAILY SARITA Administration Lisinopril 10 mg 08/20/23 09:00 08/22/23 08:28 Lisinopril 10 Mg Tab PO 09/19/23 08:59 10 mg BID SARITA Administration Nystatin 1 appln 08/04/23 21:00 08/22/23 08:28 Nystatin Oint 15 Gm Tube EXT 09/03/23 20:59 1 appln BID SARITA Administration Polyethylene Glycol 17 gm 08/19/23 09:00 08/22/23 08:28 Polyethylene (Miralax) 17 Gm Pack PO 09/18/23 08:59 17 gm DAILY SARITA Administration Pregabalin 50 mg 08/15/23 22:00 08/22/23 08:28 Pregabalin 50 Mg Cap PO 09/14/23 21:59 50 mg BID SARITA Administration Tamsulosin HCl 0.4 mg 08/15/23 22:00 08/21/23 20:43 Tamsulosin Hcl 0.4 Mg Cap PO 09/14/23 21:59 0.4 mg HS SARITA Administration
--- NOTE | 2023-08-22 14:15 | Electrocardiogram Report ---
Test Reason : Blood Pressure : / mmHG Vent. Rate : 051 BPM Atrial Rate : 051 BPM P-R Int : 260 ms QRS Dur : 150 ms QT Int : 482 ms P-R-T Axes : 020 -41 -71 degrees QTc Int : 444 ms Sinus bradycardia with 1st degree A-V block Left axis deviation Right bundle branch block possible Inferior infarct , age undetermined T wave abnormality, consider lateral ischemia Abnormal ECG When compared with ECG of 16-JUL-2023 13:50, Inferior infarct is now Present QT has shortened Confirmed by Kemal Hart ([id number] on 08/22/2023 2:14:37 PM Referred By: Provider Outside Confirmed By:Nic Hart
[2023-08-22] MEDS: TAMSULOSIN HCL 0.4 MG CAP PO SCH (19:31)
[2023-08-22 23:47] LABS: HMGCR Ab <2 CU (<20)
[2023-08-23 05:03] LABS: Hematocrit (blood only) 27.1 % (42.0-52.0); Hemoglobin 8.7 g/dl (14.0-18.0); Mean Corpuscular Hemoglobin 29.9 pg (25.0-34.0); Mean Corpuscular Hgb Conc 32.1 g/dL (32.0-36.0); Mean Corpuscular Volume 93.1 fL (80.0-100.0); Mean Platelet Volume 10.1 fL (9.4-12.4); Platelet Count 385 K/uL (130-400); RDW Coefficient of Variation 16.2 % (11.5-14.5); RDW Standard Deviation 55.9 fL (36.4-46.3); Red Blood Count 2.91 M/uL (4.70-6.10); White Blood Count 6.14 K/ul (4.8-10.8)
[2023-08-23 05:09] LABS: Calcium 9.1 mg/dl (8.6-10.3); Creatinine Clr Calc Pharmacy 55.3 ml/min; Est GFR (African American) 63.6 ml/min; Est GFR (Non-African American) 54.9 ml/min; Magnesium 1.9 mg/dl (1.7-2.4); Phosphorus 3.4 mg/dl (2.5-4.9); Potassium 4.8 mmol/L (3.5-5.1)
[2023-08-23] MEDS: POLYETHYLENE (MIRALAX) 17 GM PACK PO SCH (10:18)
[2023-08-23] MEDS: FERROUS SULFATE 325 MG TAB PO SCH (10:20)
[2023-08-23] MEDS: CLOPIDOGREL BISULFATE 75 MG TAB PO SCH (10:20)
[2023-08-23] MEDS: GABAPENTIN 300 MG CAP PO SCH ×3 (10:21→20:30)
[2023-08-23] MEDS: ADVANCED PROBIOTIC 1250 MG CAPSULE PO SCH (10:21)
[2023-08-23] MEDS: NYSTATIN OINT 15 GM TUBE EXT SCH ×2 (10:23→20:33)
[2023-08-23] MEDS: lisinopril 10 MG TAB PO SCH ×2 (10:23→20:30)
[2023-08-23] MEDS: INSULIN ASPART PER UNIT CHARGE SC SCH ×4 (10:29→20:29)
[2023-08-23] MEDS: PREGABALIN 50 MG CAP PO SCH ×2 (10:29→20:30)
--- NOTE | 2023-08-23 17:12 | Hospitalist Progress Note ---
Date of Service August 23, 2023 Assessment & Plan (1) Stroke-like episode: Plan: Mr. Yepez is an 83 year old gentleman with PMHx significant for chronic pain with morphine pump, DMII and BPH admitted for placement per family, after a few weeks of generalized progressive weakness, likely attributed to worsening myopathy and weakness after simultaneous UTI and herpes zoster infection in the setting of statin, fibrate therapy and allopurinol. Patient was noted to have lower extremity edema upon admission, which improved with IV diuresis. ECHO did not revealed diastolic dysfunction, but questionable PHTN. Further diuresis limited 2/2 SRAVANI, which is improving with cessation of lasix on 07/18. Patient with elevated CK since admission, IVF given fro 48 hours and stopped on 07/23 [facility] evaluated patient given chronic persistent lower back pain with new onset severe weakness in both of his legs. This was felt to be infection affecting his underlying failed laminectomy syndrome. No surgical intervention given complex comorbidities making patient poor candidate. Broadened coverage with zosyn on 07/22 2/2 fevers and clinically poor appearance--appears much better; notably lesion on buttock concerning for shingles recurrence. Discontinued Zosyn given negative infectious work up and pursue recurrent shingles treatment with contact precautions. Shingles treatment was escalated to IV acyclovir given concern for disseminated shingles. ID consulted and completed acyclovir 08/10. Consulted neurology. Initial suggestions included consideration for stopping statin, fibrate and allopurinol as all of these may contribute to myopathy (noted elevated CK, which is now normal). Patient's zoster lesions improved dramatically on exam; however, penile ulceration suspicious of necrosis from catheter. Urology assessed and recommended continuation of antibiotics for 1 week, which completed 08/15. Patient continued on CIC q 6h. Course has further been complicated by stroke-like episode, in which work up has been negative to date for stroke or other acute process; MRI negative for acute stroke. Given encephalopathy on EEG, consulted nephrology to review azotemia, in which no clear cause can be elucidated as it is likely multifactorial. Discussion with patient noted that he does have history of similar episodes, usually after awakening--given history of noncompliance with CPAP. He states he was taken off CPAP and transitioned to what seemed like nocturnal oxygen. Nocturnal study performed on 08/18 overnight did not reveal any hypoxic episodes (1 desat) that would warrant nocturnal o2. Patient remains admitted awaiting for placement. 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 Wound care with aggressive management and repositioning of pressure ulcers. Patient with heart rates in 50s mostly, asymptomatic; however, low threshold to consult cardiology if sustained of symptomatic. No beds available as of yet for retirement placement. #Deep Tissue injury, right buttock pressure ulcer #Left posterior heel pressure ulcer #Right posterior heel pressure ulcer -POA, see wound care -Management per wound care, new bed/low air loss/waffle boots #Asymptomatic Bradycardia #NSVT x1 1 episode of NSVT, continue to monitor on telemetry discontinue BB 2/2 not getting it for days given heart rates in high 50s, asymptomatic If recurrence, will consult Cards Potentially correlated to episode of "bad dream" reported by patient -Will resume dose reduced coreg with hold parameter <55; did not tolerate AV block noted on EKG--avoid BB -Patient asymptomatic, HR in 40s during sleep--shows chronotropic competence with increased movement of right upper extremity -Low threshold of Cardiology consult if symptomatic -No further episodes #Stroke-like episode "08/14/23 Suddenly became unresponsive. Last well know around 2pm.baseline minimal movement of b/l extremities. Wheel chair bound and nurses have to feed him. On morphine Pump. IM narcan 0.2mg as patient iv line not working. IT was 3:30pm by that time IM narcan didnot helped much. So stroke alert was called.After CT scan was done patient woke up. Initially he was able to tell his name and knows his but thought he was in storage. Later could tell he is hospital.Jammie Stroke Neurologist evaluated the patient. As patient is mostly back to baseline except some confusion with dates thought probably medication related but wanted to do MRI head and also eeg for now and consult neurology in am. And to avoid sedatives.Held tramadol. Will monitor in med/tele for now." Remains at baseline EEG notable for encephalopathy. Brain MRI w/ no acute findings. Continue delirium precautions Nocturnal pulse oximetry unremarkable for hypoxia contributing to symptoms #Acute on chronic normocytic anemia *stable #GRETTA +Chronic inflammation anemia -Anemia labs ordered -Hemoccult negative -Given encephalopathy, BUN without cause, myopathy that seems unexplained to the degree of currently severity, will order myositis labs to r/o other eitologies--CK in rare cases has been normal in different inflammatory myopathies and warrants r/o -Progressive pressure ulcers likely contributing to occult losses -Anemia labs: low iron, TIBC, and transferrin,with normal ferritin (mixed GRETTA/chronic disease) -Continue Iron supplementation #Azotemia *improving -No clear etiology, but noted to be uptrending since admission -Nephrology consulted to assess given issues with encephalopathy: -Completed doxycycline which can cause elevated BUN; no longer on fenofibrate/statin for >2 weeks -Avoid steroids -Hemoccult 08/16 negative -CK 31 #. Lower extremity edema #. Left UE edema Pt with significant lower extremity edema and left UE edema Chest xray with noted cardiomegaly; Echo 60% EF, pHTN, LVH Swelling near resolved LE on exam but is present in his hands/upper extremities now, likely related to poor movement/weakness, no reported heart failure LUE doppler negative for acute process. Doppler US LLE with low suspicion for clot/ Completed course of antibiotics for presumptive cellulitis on admission. Encourage L U extremity elevation and ambulation OOB to chair as tolerated. Swelling exacerbated by poor mobility. FR 1800 ml; freq intermittent cath; increase protein content in diet. PO lasix on hold. Monitor and replete electrolytes. Mobilize LUE frequently, elevate above level of heart to help w/ swelling. currently not on diuretics #ASCVD CTA head Multifocal areas of moderate to severe stenosis within the int racranial vasculature as described above likely due to chronic atherosclerotic disease 1. Atherosclerotic plaque with foci of less than 50% stenosis involving both internal carotid arteries. 2. There is at least moderate focal stenosis of the mid right vertebral artery. 3. 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 -Added plavix, statin held 2/2 myopathy #Penile ulcer *resolved Purulent discharge noted on ulcer of foreskin near lawson catheter Urology consulted - suspect possible balanitis of the penis/foreskin which is likely both yeast and bacterial Wound culture MRSA--completed doxycycline EOT 08/15, mupirocin topically Continue CIC to prevent further foreskin compression/irritation q6h . Kandice GONZALES'tereza. #Ambulatory Dysfunction, myopathy #thoracic myelopathy #Failed Laminectomy syndrome Freq falls happening at home, pt with bruising on chest CK elevated, then downtrended CM consult for placement needs in this situation Ortho evaluated patient given left leg sensory loss and bilateral motor weakness: no surgical intervention given comorbidities stopped statin, fenofibrate and allopurinol and feels ? improved. Will likely need pcsk9i, pt to f/u w/ PCP office to initiate on this. Pt made aware. PT/OT Pending placement Need to continue turning patient q2h and helping to prevent breakdown on scrotum which is also swollen. Expect myopathy to be retirement, but may improve over the next several weeks. Awaiting placement #Disseminated Zoster *resolved New lesions on buttock c/w herpes zoster , Airborne precautions VZV/HSV swabs of lesions obtained, pending since 08/03 Plan for 14 days total of IV if positive EOT 08/10 - completed course. [place] capsaicin cream for neuralgia lesions dries and crusted on exam. #Rhabdomyolysis *resolved [CK elevated on admission, improved with rehydration efforts and stopped statin, fibrate]. #SRAVANI over CKD stage III: GFR ranges in 40s since 2019. SRAVANI has improved. Monitor BMP as needed. #DMII, h/o: A1c of 7.4 on 07/17/2023. Sliding scale insulin in hospital.Will monitor #HTN: not getting coreg 2/2 heart rates, lisinopril 20mg bid, will adjust regimen as toleated. . #Chronic Pain Has morphine pump [facility] Consult placed to pain management for further pain management recs while in hosp Also on gabapentin, lyrica (noted both are gabapentinoids), cymbalta, tylenol for pain. Continue bowel regimen for chronic narcotic use- scheduled sennokot and metamucil, miralax ordered as pt on a pump Pain Consult placed on 07/16-no change in infusion worsened pain from shingles, gabapentin increased to 600mg TID and added PRN tramadol Pump filled 08/16/2023 by pain service with reduction 15% #Constipation Continue bowel regimen for chronic narcotic use Scheduled sennokot and metamucil, miralax as pt on a morphine pump Will monitor #HLD: Hold home statin and fibrate as may contribute to elevated CK and worsening myopathy. Will need f/u w/ PCP as OP for consideration of PCSK9i. BPH/LUTS: continue home meds Diet: Low sodium, DMII, FR 1800ml DVT prophylaxis: Lovenox CODE STATUS: DNR/DNI per POLST form Dispo: SNF Admission and Anticipated Discharge Date Admission Date: July 16, 2023 Subjective Patient seen and examined at bedside. Reports trying to keep up with arm exercises, Denies any chest pain, SOB or acute concerns at this time Physical Exam Physical Exam: Respiratory: normal respiratory effort, lungs clear to auscultation Cardiovascular: RRR, no murmur, no edema Gastrointestinal (Abdomen): normal bowel sounds, soft, nontender, no hepatosplenomegaly 1+ BLE edema, on room air. 1-2+ LUE juliet a Dried and crusted shingles lesion on the left upper buttock. Results & Data Results & Data Vital Signs (Past 12 Hours) Vital Signs Temp Pulse Pulse Resp BP Pulse Ox O2 Del Method 08/23/23 15:46 36.9 C 67 16 126/69 98 Room Air 08/23/23 15:38 65 08/23/23 11:46 36.5 C 63 16 124/68 95 Room Air 08/23/23 07:55 36.5 C 69 16 139/71 95 Room Air 08/23/23 07:00 61
[2023-08-23] MEDS: TAMSULOSIN HCL 0.4 MG CAP PO SCH (20:30)
[2023-08-24] MEDS: POLYETHYLENE (MIRALAX) 17 GM PACK PO SCH (09:38)
[2023-08-24] MEDS: lisinopril 10 MG TAB PO SCH ×2 (09:38→20:24)
[2023-08-24] MEDS: ADVANCED PROBIOTIC 1250 MG CAPSULE PO SCH (09:39)
[2023-08-24] MEDS: FERROUS SULFATE 325 MG TAB PO SCH (09:39)
[2023-08-24] MEDS: GABAPENTIN 300 MG CAP PO SCH ×3 (09:39→20:24)
[2023-08-24] MEDS: NYSTATIN OINT 15 GM TUBE EXT SCH ×2 (09:42→20:25)
[2023-08-24] MEDS: CLOPIDOGREL BISULFATE 75 MG TAB PO SCH (09:43)
[2023-08-24] MEDS: INSULIN ASPART PER UNIT CHARGE SC SCH ×4 (09:46→20:52)
[2023-08-24] MEDS: PREGABALIN 50 MG CAP PO SCH ×2 (09:48→20:24)
[2023-08-24] MEDS: METHOCARBAMOL 500 MG TABLET PO PRN (12:39)
--- NOTE | 2023-08-24 16:20 | Hospitalist Progress Note ---
Date of Service August 24, 2023 Assessment & Plan (1) Stroke-like episode: Plan: Mr. Yepez is an 83 year old gentleman with PMHx significant for chronic pain with morphine pump, DMII and BPH admitted for placement per family, after a few weeks of generalized progressive weakness, likely attributed to worsening myopathy and weakness after simultaneous UTI and herpes zoster infection in the setting of statin, fibrate therapy and allopurinol. Patient was noted to have lower extremity edema upon admission, which improved with IV diuresis. ECHO did not revealed diastolic dysfunction, but questionable PHTN. Further diuresis limited 2/2 SRAVANI, which is improving with cessation of lasix on 07/18. Patient with elevated CK since admission, IVF given fro 48 hours and stopped on 07/23 [facility] evaluated patient given chronic persistent lower back pain with new onset severe weakness in both of his legs. This was felt to be infection affecting his underlying failed laminectomy syndrome. No surgical intervention given complex comorbidities making patient poor candidate. Broadened coverage with zosyn on 07/22 2/2 fevers and clinically poor appearance--appears much better; notably lesion on buttock concerning for shingles recurrence. Discontinued Zosyn given negative infectious work up and pursue recurrent shingles treatment with contact precautions. Shingles treatment was escalated to IV acyclovir given concern for disseminated shingles. ID consulted and completed acyclovir 08/10. Consulted neurology. Initial suggestions included consideration for stopping statin, fibrate and allopurinol as all of these may contribute to myopathy (noted elevated CK, which is now normal). Patient's zoster lesions improved dramatically on exam; however, penile ulceration suspicious of necrosis from catheter. Urology assessed and recommended continuation of antibiotics for 1 week, which completed 08/15. Patient continued on CIC q 6h. Course has further been complicated by stroke-like episode, in which work up has been negative to date for stroke or other acute process; MRI negative for acute stroke. Given encephalopathy on EEG, consulted nephrology to review azotemia, in which no clear cause can be elucidated as it is likely multifactorial. Discussion with patient noted that he does have history of similar episodes, usually after awakening--given history of noncompliance with CPAP. He states he was taken off CPAP and transitioned to what seemed like nocturnal oxygen. Nocturnal study performed on 08/18 overnight did not reveal any hypoxic episodes (1 desat) that would warrant nocturnal o2. Patient remains admitted awaiting for placement. 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 Wound care with aggressive management and repositioning of pressure ulcers. Patient with heart rates in 50s mostly, asymptomatic; however, low threshold to consult cardiology if sustained of symptomatic. No beds available as of yet for half-way placement. #Deep Tissue injury, right buttock pressure ulcer #Left posterior heel pressure ulcer #Right posterior heel pressure ulcer -POA, see wound care -Management per wound care, new bed/low air loss/waffle boots #Asymptomatic Bradycardia #NSVT x1 1 episode of NSVT, continue to monitor on telemetry discontinue BB 2/2 not getting it for days given heart rates in high 50s, asymptomatic If recurrence, will consult Cards Potentially correlated to episode of "bad dream" reported by patient -Will resume dose reduced coreg with hold parameter <55; did not tolerate AV block noted on EKG--avoid BB -Patient asymptomatic, HR in 40s during sleep--shows chronotropic competence with increased movement of right upper extremity -Low threshold of Cardiology consult if symptomatic -No further episodes #Stroke-like episode "08/14/23 Suddenly became unresponsive. Last well know around 2pm.baseline minimal movement of b/l extremities. Wheel chair bound and nurses have to feed him. On morphine Pump. IM narcan 0.2mg as patient iv line not working. IT was 3:30pm by that time IM narcan didnot helped much. So stroke alert was called.After CT scan was done patient woke up. Initially he was able to tell his name and knows his but thought he was in storage. Later could tell he is hospital.Jammie Stroke Neurologist evaluated the patient. As patient is mostly back to baseline except some confusion with dates thought probably medication related but wanted to do MRI head and also eeg for now and consult neurology in am. And to avoid sedatives.Held tramadol. Will monitor in med/tele for now." Remains at baseline EEG notable for encephalopathy. Brain MRI w/ no acute findings. Continue delirium precautions Nocturnal pulse oximetry unremarkable for hypoxia contributing to symptoms #Acute on chronic normocytic anemia *stable #GRETTA +Chronic inflammation anemia -Anemia labs ordered -Hemoccult negative -Given encephalopathy, BUN without cause, myopathy that seems unexplained to the degree of currently severity, will order myositis labs to r/o other eitologies--CK in rare cases has been normal in different inflammatory myopathies and warrants r/o -Progressive pressure ulcers likely contributing to occult losses -Anemia labs: low iron, TIBC, and transferrin,with normal ferritin (mixed GRETTA/chronic disease) -Continue Iron supplementation #Azotemia *improving -No clear etiology, but noted to be uptrending since admission -Nephrology consulted to assess given issues with encephalopathy: -Completed doxycycline which can cause elevated BUN; no longer on fenofibrate/statin for >2 weeks -Avoid steroids -Hemoccult 08/16 negative -CK 31 #. Lower extremity edema #. Left UE edema Pt with significant lower extremity edema and left UE edema Chest xray with noted cardiomegaly; Echo 60% EF, pHTN, LVH Swelling near resolved LE on exam but is present in his hands/upper extremities now, likely related to poor movement/weakness, no reported heart failure LUE doppler negative for acute process. Doppler US LLE with low suspicion for clot/ Completed course of antibiotics for presumptive cellulitis on admission. Encourage L U extremity elevation and ambulation OOB to chair as tolerated. Swelling exacerbated by poor mobility. FR 1800 ml; freq intermittent cath; increase protein content in diet. PO lasix on hold. Monitor and replete electrolytes. Mobilize LUE frequently, elevate above level of heart to help w/ swelling. currently not on diuretics #ASCVD CTA head Multifocal areas of moderate to severe stenosis within the int racranial vasculature as described above likely due to chronic atherosclerotic disease 1. Atherosclerotic plaque with foci of less than 50% stenosis involving both internal carotid arteries. 2. There is at least moderate focal stenosis of the mid right vertebral artery. 3. 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 -Added plavix, statin held 2/2 myopathy #Penile ulcer *resolved Purulent discharge noted on ulcer of foreskin near lawson catheter Urology consulted - suspect possible balanitis of the penis/foreskin which is likely both yeast and bacterial Wound culture MRSA--completed doxycycline EOT 08/15, mupirocin topically Continue CIC to prevent further foreskin compression/irritation q6h . Kandice GONZALES'tereza. #Ambulatory Dysfunction, myopathy #thoracic myelopathy #Failed Laminectomy syndrome Freq falls happening at home, pt with bruising on chest CK elevated, then downtrended CM consult for placement needs in this situation Ortho evaluated patient given left leg sensory loss and bilateral motor weakness: no surgical intervention given comorbidities stopped statin, fenofibrate and allopurinol and feels ? improved. Will likely need pcsk9i, pt to f/u w/ PCP office to initiate on this. Pt made aware. PT/OT Pending placement Need to continue turning patient q2h and helping to prevent breakdown on scrotum which is also swollen. Expect myopathy to be half-way, but may improve over the next several weeks. Awaiting placement #Disseminated Zoster *resolved New lesions on buttock c/w herpes zoster , Airborne precautions VZV/HSV swabs of lesions obtained, pending since 08/03 Plan for 14 days total of IV if positive EOT 08/10 - completed course. [place] capsaicin cream for neuralgia lesions dries and crusted on exam. #Rhabdomyolysis *resolved [CK elevated on admission, improved with rehydration efforts and stopped statin, fibrate]. #SRAVANI over CKD stage III: GFR ranges in 40s since 2019. SRAVANI has improved. Monitor BMP as needed. #DMII, h/o: A1c of 7.4 on 07/17/2023. Sliding scale insulin in hospital.Will monitor #HTN: not getting coreg 2/2 heart rates, lisinopril 20mg bid, will adjust regimen as toleated. . #Chronic Pain Has morphine pump [facility] by [facility] Consult placed to pain management for further pain management recs while in hosp Also on gabapentin, lyrica (noted both are gabapentinoids), cymbalta, tylenol for pain. Continue bowel regimen for chronic narcotic use- scheduled sennokot and metamucil, miralax ordered as pt on a pump Pain Consult placed on 07/16-no change in infusion worsened pain from shingles, gabapentin increased to 600mg TID and added PRN tramadol Pump filled 08/16/2023 by pain service with reduction 15% #Constipation Continue bowel regimen for chronic narcotic use Scheduled sennokot and metamucil, miralax as pt on a morphine pump Will monitor #HLD: Hold home statin and fibrate as may contribute to elevated CK and worsening myopathy. Will need f/u w/ PCP as OP for consideration of PCSK9i. BPH/LUTS: continue home meds Diet: Low sodium, DMII, FR 1800ml DVT prophylaxis: Lovenox CODE STATUS: DNR/DNI per POLST form Dispo: SNF Admission and Anticipated Discharge Date Admission Date: July 16, 2023 Subjective Patient seen and examined at bedside. Reports trying to keep up with arm exercises, Denies any chest pain, SOB or acute concerns at this time Physical Exam Physical Exam: Respiratory: normal respiratory effort, lungs clear to auscultation Cardiovascular: RRR, no murmur, no edema Gastrointestinal (Abdomen): normal bowel sounds, soft, nontender, no hepatosplenomegaly 1+ BLE edema, on room air. 1-2+ LUE juliet a Dried and crusted shingles lesion on the left upper buttock. Results & Data Results & Data Vital Signs (Past 12 Hours) Vital Signs Temp Pulse Pulse Resp BP Pulse Ox O2 Del Method 08/24/23 16:08 36.6 C 71 14 101/56 L 97 Room Air 08/24/23 11:55 36.8 C 69 16 145/68 H 98 Room Air 08/24/23 09:30 Room Air 08/24/23 08:00 36.4 C L 66 16 120/45 L 91 Room Air 08/24/23 07:35 68
[2023-08-24] MEDS: TAMSULOSIN HCL 0.4 MG CAP PO SCH (20:24)
[2023-08-25 06:34] LABS: BUN Creatinine Ratio 69.1 (10-20); Creatinine Clr Calc Pharmacy 72.4 ml/min; Est GFR (African American) 87.2 ml/min; Est GFR (Non-African American) 75.2 ml/min; Magnesium 1.9 mg/dl (1.7-2.4); Phosphorus 3.1 mg/dl (2.5-4.9); Potassium 4.8 mmol/L (3.5-5.1)
[2023-08-25] MEDS: GABAPENTIN 300 MG CAP PO SCH ×3 (09:28→20:02)
[2023-08-25] MEDS: ADVANCED PROBIOTIC 1250 MG CAPSULE PO SCH (09:30)
[2023-08-25] MEDS: FERROUS SULFATE 325 MG TAB PO SCH (09:30)
[2023-08-25] MEDS: CLOPIDOGREL BISULFATE 75 MG TAB PO SCH (09:30)
[2023-08-25] MEDS: POLYETHYLENE (MIRALAX) 17 GM PACK PO SCH (09:30)
[2023-08-25] MEDS: lisinopril 10 MG TAB PO SCH ×2 (09:31→20:02)
[2023-08-25] MEDS: NYSTATIN OINT 15 GM TUBE EXT SCH ×2 (09:31→20:02)
[2023-08-25] MEDS: INSULIN ASPART PER UNIT CHARGE SC SCH ×4 (09:39→22:24)
[2023-08-25] MEDS: PREGABALIN 50 MG CAP PO SCH ×2 (09:39→20:01)
[2023-08-25] MEDS: METHOCARBAMOL 500 MG TABLET PO PRN ×2 (11:17→20:01)
[2023-08-25] MEDS ORDERED: bisacodyL 10 MG SUPP PR PRN (16:40)
[2023-08-25] MEDS ORDERED: bisacodyL 10 MG SUPP PR STA (16:40)
--- NOTE | 2023-08-25 16:51 | Hospitalist Progress Note ---
Date of Service August 25, 2023 Assessment & Plan (1) Stroke-like episode: Plan: Mr. Yepez is an 83 year old gentleman with PMHx significant for chronic pain with morphine pump, DMII and BPH admitted for placement per family, after a few weeks of generalized progressive weakness, likely attributed to worsening myopathy and weakness after simultaneous UTI and herpes zoster infection in the setting of statin, fibrate therapy and allopurinol. Patient was noted to have lower extremity edema upon admission, which improved with IV diuresis. ECHO did not revealed diastolic dysfunction, but questionable PHTN. Further diuresis limited 2/2 SRAVANI, which is improving with cessation of lasix on 07/18. Patient with elevated CK since admission, IVF given fro 48 hours and stopped on 07/23 [facility] evaluated patient given chronic persistent lower back pain with new onset severe weakness in both of his legs. This was felt to be infection affecting his underlying failed laminectomy syndrome. No surgical intervention given complex comorbidities making patient poor candidate. Broadened coverage with zosyn on 07/22 2/2 fevers and clinically poor appearance--appears much better; notably lesion on buttock concerning for shingles recurrence. Discontinued Zosyn given negative infectious work up and pursue recurrent shingles treatment with contact precautions. Shingles treatment was escalated to IV acyclovir given concern for disseminated shingles. ID consulted and completed acyclovir 08/10. Consulted neurology. Initial suggestions included consideration for stopping statin, fibrate and allopurinol as all of these may contribute to myopathy (noted elevated CK, which is now normal). Patient's zoster lesions improved dramatically on exam; however, penile ulceration suspicious of necrosis from catheter. Urology assessed and recommended continuation of antibiotics for 1 week, which completed 08/15. Patient continued on CIC q 6h. Course has further been complicated by stroke-like episode, in which work up has been negative to date for stroke or other acute process; MRI negative for acute stroke. Given encephalopathy on EEG, consulted nephrology to review azotemia, in which no clear cause can be elucidated as it is likely multifactorial. Discussion with patient noted that he does have history of similar episodes, usually after awakening--given history of noncompliance with CPAP. He states he was taken off CPAP and transitioned to what seemed like nocturnal oxygen. Nocturnal study performed on 08/18 overnight did not reveal any hypoxic episodes (1 desat) that would warrant nocturnal o2. Patient remains admitted awaiting for placement. 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 Wound care with aggressive management and repositioning of pressure ulcers. Patient with heart rates in 50s mostly, asymptomatic; however, low threshold to consult cardiology if sustained of symptomatic. No beds available as of yet for care home placement. #Deep Tissue injury, right buttock pressure ulcer #Left posterior heel pressure ulcer #Right posterior heel pressure ulcer -POA, see wound care -Management per wound care, new bed/low air loss/waffle boots #Asymptomatic Bradycardia #NSVT x1 1 episode of NSVT, continue to monitor on telemetry discontinue BB 2/2 not getting it for days given heart rates in high 50s, asymptomatic If recurrence, will consult Cards Potentially correlated to episode of "bad dream" reported by patient -Will resume dose reduced coreg with hold parameter <55; did not tolerate AV block noted on EKG--avoid BB -Patient asymptomatic, HR in 40s during sleep--shows chronotropic competence with increased movement of right upper extremity -Low threshold of Cardiology consult if symptomatic -No further episodes #Stroke-like episode "08/14/23 Suddenly became unresponsive. Last well know around 2pm.baseline minimal movement of b/l extremities. Wheel chair bound and nurses have to feed him. On morphine Pump. IM narcan 0.2mg as patient iv line not working. IT was 3:30pm by that time IM narcan didnot helped much. So stroke alert was called.After CT scan was done patient woke up. Initially he was able to tell his name and knows his but thought he was in storage. Later could tell he is hospital.[facility] Neurologist evaluated the patient. As patient is mostly back to baseline except some confusion with dates thought probably medication related but wanted to do MRI head and also eeg for now and consult neurology in am. And to avoid sedatives.Held tramadol. Will monitor in med/tele for now." Remains at baseline EEG notable for encephalopathy. Brain MRI w/ no acute findings. Continue delirium precautions Nocturnal pulse oximetry unremarkable for hypoxia contributing to symptoms #Acute on chronic normocytic anemia *stable #GRETTA +Chronic inflammation anemia -Anemia labs ordered -Hemoccult negative -Given encephalopathy, BUN without cause, myopathy that seems unexplained to the degree of currently severity, will order myositis labs to r/o other eitologies--CK in rare cases has been normal in different inflammatory myopathies and warrants r/o -Progressive pressure ulcers likely contributing to occult losses -Anemia labs: low iron, TIBC, and transferrin,with normal ferritin (mixed GRETTA/chronic disease) -Continue Iron supplementation #Azotemia *improving -No clear etiology, but noted to be uptrending since admission -Nephrology consulted to assess given issues with encephalopathy: -Completed doxycycline which can cause elevated BUN; no longer on fenofibrate/statin for >2 weeks -Avoid steroids -Hemoccult 08/16 negative -CK 31 #. Lower extremity edema #. Left UE edema Pt with significant lower extremity edema and left UE edema Chest xray with noted cardiomegaly; Echo 60% EF, pHTN, LVH Swelling near resolved LE on exam but is present in his hands/upper extremities now, likely related to poor movement/weakness, no reported heart failure LUE doppler negative for acute process. Doppler US LLE with low suspicion for clot/ Completed course of antibiotics for presumptive cellulitis on admission. Encourage L U extremity elevation and ambulation OOB to chair as tolerated. Swelling exacerbated by poor mobility. FR 1800 ml; freq intermittent cath; increase protein content in diet. PO lasix on hold. Monitor and replete electrolytes. Mobilize LUE frequently, elevate above level of heart to help w/ swelling. currently not on diuretics #ASCVD CTA head Multifocal areas of moderate to severe stenosis within the intr acranial vasculature as described above likely due to chronic atherosclerotic disease 1. Atherosclerotic plaque with foci of less than 50% stenosis involving both internal carotid arteries. 2. There is at least moderate focal stenosis of the mid right vertebral artery. 3. 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 -Added plavix, statin held 2/2 myopathy #Penile ulcer *resolved Purulent discharge noted on ulcer of foreskin near lawson catheter Urology consulted - suspect possible balanitis of the penis/foreskin which is likely both yeast and bacterial Wound culture MRSA--completed doxycycline EOT 08/15, mupirocin topically Continue CIC to prevent further foreskin compression/irritation q6h . Kandice GONZALES'tereza. #Ambulatory Dysfunction, myopathy #thoracic myelopathy #Failed Laminectomy syndrome Freq falls happening at home, pt with bruising on chest CK elevated, then downtrended CM consult for placement needs in this situation Ortho evaluated patient given left leg sensory loss and bilateral motor weakness: no surgical intervention given comorbidities stopped statin, fenofibrate and allopurinol and feels ? improved. Will likely need pcsk9i, pt to f/u w/ PCP office to initiate on this. Pt made aware. PT/OT Pending placement Need to continue turning patient q2h and helping to prevent breakdown on scrotum which is also swollen. 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 Awaiting placement #Disseminated Zoster *resolved New lesions on buttock c/w herpes zoster , Airborne precautions VZV/HSV swabs of lesions obtained, pending since 08/03 Plan for 14 days total of IV if positive EOT 08/10 - completed course. [place] capsaicin cream for neuralgia lesions dries and crusted on exam. #Rhabdomyolysis *resolved [CK elevated on admission, improved with rehydration efforts and stopped statin, fibrate]. #SRAVANI over CKD stage III: GFR ranges in 40s since 2019. SRAVANI has improved. Monitor BMP as needed. #DMII, h/o: A1c of 7.4 on 07/17/2023. Sliding scale insulin in hospital.Will monitor #HTN: not getting coreg 2/2 heart rates, lisinopril 20mg bid, will adjust regimen as toleated. . #Chronic Pain [facility] Consult placed to pain management for further pain management recs while in hosp Also on gabapentin, lyrica (noted both are gabapentinoids), cymbalta, tylenol for pain. Continue bowel regimen for chronic narcotic use- scheduled sennokot and metamucil, miralax ordered as pt on a pump Pain Consult placed on 07/16-no change in infusion worsened pain from shingles, gabapentin increased to 600mg TID and added PRN tramadol Pump filled 08/16/2023 by pain service with reduction 15% #Constipation Continue bowel regimen for chronic narcotic use Scheduled sennokot and metamucil, miralax as pt on a morphine pump Will monitor #HLD: Hold home statin and fibrate as may contribute to elevated CK and worsening myopathy. Will need f/u w/ PCP as OP for consideration of PCSK9i. BPH/LUTS: continue home meds Diet: Low sodium, DMII, FR 1800ml DVT prophylaxis: Lovenox CODE STATUS: DNR/DNI per POLST form Dispo: SNF Admission and Anticipated Discharge Date Admission Date: July 16, 2023 Subjective Patient seen and examined at bedside. Reports trying to keep up with arm exercises, Denies any chest pain, SOB or acute concerns at this time Physical Exam Physical Exam: Respiratory: normal respiratory effort, lungs clear to auscultation Cardiovascular: RRR, no murmur, no edema Gastrointestinal (Abdomen): normal bowel sounds, soft, nontender, no hepatosplenomegaly 1+ BLE edema, on room air. 1-2+ LUE juliet a Dried and crusted shingles lesion on the left upper buttock. Results & Data Results & Data Vital Signs (Past 12 Hours) Vital Signs Temp Pulse Pulse Resp BP Pulse Ox O2 Del Method 08/25/23 16:41 77 08/25/23 15:10 37.7 C H 73 16 147/66 H 95 Room Air 08/25/23 12:29 36.8 C 73 16 126/66 95 Room Air 08/25/23 09:31 Room Air 08/25/23 08:07 36.8 C 77 16 137/67 96 Room Air 08/25/23 07:26 68 08/25/23 04:51 Room Air
[2023-08-25] MEDS: DOCUSATE SODIUM 100 MG CAP PO SCH (20:02)
[2023-08-25] MEDS: TAMSULOSIN HCL 0.4 MG CAP PO SCH (20:02)
[2023-08-26] MEDS: ACETAMINOPHEN 325 MG TAB PO PRN (01:30)
[2023-08-26 07:11] LABS: Appearance Urine Clear (Clear); Bacteria Urine Automated Negative (Negative); Bilirubin Urine Negative (Negative); Blood Urine Negative (Negative); Color Urine Yellow; Glucose Urine UA Negative (Negative); Ketones Urine Negative (Negative); Leukocyte Esterase Urine Trace (Negative); Nitrite Urine Negative (Negative); Protein Urine Negative (Negative); RBC Urine Automated 0-4 /hpf (0-4); Specific Gravity Urine 1.019 (1.000-1.030); Urobilinogen Urine Negative (Negative)
[2023-08-26] MEDS: CLOPIDOGREL BISULFATE 75 MG TAB PO SCH (09:55)
[2023-08-26] MEDS: PREGABALIN 50 MG CAP PO SCH ×2 (09:55→22:16)
[2023-08-26] MEDS: ADVANCED PROBIOTIC 1250 MG CAPSULE PO SCH (09:55)
[2023-08-26] MEDS: GABAPENTIN 300 MG CAP PO SCH ×3 (09:56→22:09)
[2023-08-26] MEDS: FERROUS SULFATE 325 MG TAB PO SCH (09:56)
[2023-08-26] MEDS: POLYETHYLENE (MIRALAX) 17 GM PACK PO SCH (09:57)
[2023-08-26] MEDS: NYSTATIN OINT 15 GM TUBE EXT SCH ×2 (09:57→22:07)
[2023-08-26] MEDS: DOCUSATE SODIUM 100 MG CAP PO SCH ×2 (09:57→22:08)
[2023-08-26] MEDS: INSULIN ASPART PER UNIT CHARGE SC SCH ×4 (09:58→22:10)
--- NOTE | 2023-08-26 10:22 | XRay Report ---
XR chest 1V portable CLINICAL HISTORY: Fever. COMPARISON STUDY: Chest radiograph July 16, 2023. FINDINGS: There are median sternotomy wires. Cardiomegaly is unchanged. There is no evidence for pulm onary edema. No pneumothorax or pleural effusion is present. No consolidation is identified to sugges t pneumonia. Minimal bibasilar opacities favor atelectasis. IMPRESSION: 1. Cardiomegaly without evidence for pulmonary edema. 2. No consolidation to suggest pneumonia. Mild bibasilar opacities favor atelectasis. ACT 112: Negative or not required by law. Electronically signed by: Adelfo Garcia M.D. 08/26/2023 10:20 AM
[2023-08-26 10:44] LABS: Hematocrit (blood only) 25.6 % (42.0-52.0); Mean Corpuscular Hemoglobin 29.3 pg (25.0-34.0); Mean Corpuscular Hgb Conc 31.3 g/dL (32.0-36.0); Mean Corpuscular Volume 93.8 fL (80.0-100.0); Mean Platelet Volume 10.1 fL (9.4-12.4); Platelet Count 347 K/uL (130-400); RDW Coefficient of Variation 16.7 % (11.5-14.5); RDW Standard Deviation 56.1 fL (36.4-46.3); Red Blood Count 2.73 M/uL (4.70-6.10)
[2023-08-26 10:55] LABS: BUN Creatinine Ratio 77.8 (10-20); Creatinine Clr Calc Pharmacy 63.5 ml/min; Est GFR (African American) 73.7 ml/min; Est GFR (Non-African American) 63.6 ml/min; Magnesium 1.8 mg/dl (1.7-2.4); Potassium 4.6 mmol/L (3.5-5.1)
[2023-08-26] MEDS: lisinopril 10 MG TAB PO SCH ×2 (11:45→22:09)
[2023-08-26] MEDS ORDERED: DOXYCYCLINE HYCLATE 100 MG in DEXTROSE 5% MINI-B 100 ML IV SCH (15:30)
--- NOTE | 2023-08-26 15:33 | Hospitalist Progress Note ---
Date of Service August 26, 2023 Assessment & Plan (1) Stroke-like episode: Plan: Mr. Yepez is an 83 year old gentleman with PMHx significant for chronic pain with morphine pump, DMII and BPH admitted for placement per family, after a few weeks of generalized progressive weakness, likely attributed to worsening myopathy and weakness after simultaneous UTI and herpes zoster infection in the setting of statin, fibrate therapy and allopurinol. Patient was noted to have lower extremity edema upon admission, which improved with IV diuresis. ECHO did not revealed diastolic dysfunction, but questionable PHTN. Further diuresis limited 2/2 SRAVANI, which is improving with cessation of lasix on 07/18. Patient with elevated CK since admission, IVF given fro 48 hours and stopped on 07/23 [facility] evaluated patient given chronic persistent lower back pain with new onset severe weakness in both of his legs. This was felt to be infection affecting his underlying failed laminectomy syndrome. No surgical intervention given complex comorbidities making patient poor candidate. Broadened coverage with zosyn on 07/22 2/2 fevers and clinically poor appearance--appears much better; notably lesion on buttock concerning for shingles recurrence. Discontinued Zosyn given negative infectious work up and pursue recurrent shingles treatment with contact precautions. Shingles treatment was escalated to IV acyclovir given concern for disseminated shingles. ID consulted and completed acyclovir 08/10. Consulted neurology. Initial suggestions included consideration for stopping statin, fibrate and allopurinol as all of these may contribute to myopathy (noted elevated CK, which is now normal). Patient's zoster lesions improved dramatically on exam; however, penile ulceration suspicious of necrosis from catheter. Urology assessed and recommended continuation of antibiotics for 1 week, which completed 08/15. Patient continued on CIC q 6h. Course has further been complicated by stroke-like episode, in which work up has been negative to date for stroke or other acute process; MRI negative for acute stroke. Given encephalopathy on EEG, consulted nephrology to review azotemia, in which no clear cause can be elucidated as it is likely multifactorial. Discussion with patient noted that he does have history of similar episodes, usually after awakening--given history of noncompliance with CPAP. He states he was taken off CPAP and transitioned to what seemed like nocturnal oxygen. Nocturnal study performed on 08/18 overnight did not reveal any hypoxic episodes (1 desat) that would warrant nocturnal o2. Patient remains admitted awaiting for placement. 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 Wound care with aggressive management and repositioning of pressure ulcers. Patient with heart rates in 50s mostly, asymptomatic; however, low threshold to consult cardiology if sustained of symptomatic. No beds available as of yet for halfway placement. #Deep Tissue injury, right buttock pressure ulcer #Left posterior heel pressure ulcer #Right posterior heel pressure ulcer -POA, see wound care -Management per wound care, new bed/low air loss/waffle boots -noted fould smelling drainage 08/26, had fever overnight -iv cefepime and doxy for now 08/26, wound culture and recall ID on Monday. Bl Cx sent. -follow results. #Asymptomatic Bradycardia #NSVT x1 1 episode of NSVT, continue to monitor on telemetry discontinue BB 10/27 not getting it for days given heart rates in high 50s, asymptomatic If recurrence, will consult Cards Potentially correlated to episode of "bad dream" reported by patient -Will resume dose reduced coreg with hold parameter <55; did not tolerate AV block noted on EKG--avoid BB -Patient asymptomatic, HR in 40s during sleep--shows chronotropic competence with increased movement of right upper extremity -Low threshold of Cardiology consult if symptomatic -No further episodes #Stroke-like episode "08/14/23 Suddenly became unresponsive. Last well know around 2pm.baseline minimal movement of b/l extremities. Wheel chair bound and nurses have to feed him. On morphine Pump. IM narcan 0.2mg as patient iv line not working. IT was 3:30pm by that time IM narcan didnot helped much. So stroke alert was called.After CT scan was done patient woke up. Initially he was able to tell his name and knows his but thought he was in storage. Later could tell he is hospital.[place] Stroke Neurologist evaluated the patient. As patient is mostly back to baseline except some confusion with dates thought probably medication related but wanted to do MRI head and also eeg for now and consult neurology in am. And to avoid sedatives.Held tramadol. Will monitor in med/tele for now." Remains at baseline EEG notable for encephalopathy. Brain MRI w/ no acute findings. Continue delirium precautions Nocturnal pulse oximetry unremarkable for hypoxia contributing to symptoms #Acute on chronic normocytic anemia *stable #GRETTA +Chronic inflammation anemia -Anemia labs ordered -Hemoccult negative -Given encephalopathy, BUN without cause, myopathy that seems unexplained to the degree of currently severity, will order myositis labs to r/o other eitologies--CK in rare cases has been normal in different inflammatory myopathies and warrants r/o -Progressive pressure ulcers likely contributing to occult losses -Anemia labs: low iron, TIBC, and transferrin,with normal ferritin (mixed GRETTA/chronic disease) -Continue Iron supplementation #Azotemia *fluctuating -No clear etiology, but noted to be uptrending since admission -Nephrology consulted to assess given issues with encephalopathy: -Completed doxycycline which can cause elevated BUN; no longer on fenofibrate/statin for >2 weeks -Avoid steroids -Hemoccult 08/16 negative -CK 31 -when off of doxy, bun still elevated, Hb has been stable. #. Lower extremity edema #. Left UE edema Pt with significant lower extremity edema and left UE edema Chest xray with noted cardiomegaly; Echo 60% EF, pHTN, LVH Swelling near resolved LE on exam but is present in his hands/upper extremities now, likely related to poor movement/weakness, no reported heart failure LUE doppler negative for acute process. Doppler US LLE with low suspicion for clot/ Completed course of antibiotics for presumptive cellulitis on admission. Encourage L U extremity elevation and ambulation OOB to chair as tolerated. Swelling exacerbated by poor mobility. FR 1800 ml; freq intermittent cath; increase protein content in diet. PO lasix on hold. Monitor and replete electrolytes. Mobilize LUE frequently, elevate above level of heart to help w/ swelling. currently not on diuretics #ASCVD CTA head Multifocal areas of moderate to severe stenosis within the intracranial vasculature as described above likely due to chronic atherosclerotic disease 1. Atherosclerotic plaque with foci of less than 50% stenosis involving both internal carotid arteries. 2. There is at least moderate focal stenosis of the mid right vertebral artery. 3. 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 -Added plavix, statin held 2/2 myopathy #Penile ulcer *resolved Purulent discharge noted on ulcer of foreskin near lawson catheter Urology consulted - suspect possible balanitis of the penis/foreskin which is likely both yeast and bacterial Wound culture MRSA--completed doxycycline EOT 08/15, mupirocin topically Continue CIC to prevent further foreskin compression/irritation q6h . Kandice Mcwilliams. #Ambulatory Dysfunction, myopathy #thoracic myelopathy #Failed Laminectomy syndrome Freq falls happening at home, pt with bruising on chest CK elevated, then downtrended CM consult for placement needs in this situation Ortho evaluated patient given left leg sensory loss and bilateral motor weakness: no surgical intervention given comorbidities stopped statin, fenofibrate and allopurinol and feels ? improved. Will likely need pcsk9i, pt to f/u w/ PCP office to initiate on this. Pt made aware. PT/OT Pending placement Need to continue turning patient q2h and helping to prevent breakdown on scrotum which is also swollen. Expect myopathy to be halfway, but may improve over the next several weeks. Awaiting placement #Disseminated Zoster *resolved New lesions on buttock c/w herpes zoster , Airborne precautions VZV/HSV swabs of lesions obtained, pending since 08/03 Plan for 14 days total of IV if positive EOT 08/10 - completed course. [place] capsaicin cream for neuralgia lesions dries and crusted on exam. #Rhabdomyolysis *resolved [CK elevated on admission, improved with rehydration efforts and stopped statin, fibrate]. #SRAVANI over CKD stage III: GFR ranges in 40s since 2019. SRAVANI has improved. Monitor BMP as needed. #DMII, h/o: A1c of 7.4 on 07/17/2023. Sliding scale insulin in hospital.Will monitor #HTN: not getting coreg 2/2 heart rates, lisinopril 20mg bid, will adjust regimen as toleated. . #Chronic Pain Has [facility] Consult placed to pain management for further pain management recs while in hosp Also on gabapentin, lyrica (noted both are gabapentinoids), cymbalta, tylenol for pain. Continue bowel regimen for chronic narcotic use- scheduled sennokot and metamucil, miralax ordered as pt on a pump Pain Consult placed on 07/16-no change in infusion worsened pain from shingles, gabapentin increased to 600mg TID and added PRN tramadol Pump filled 08/16/2023 by pain service with reduction 15% #Constipation Continue bowel regimen for chronic narcotic use Scheduled sennokot and metamucil, miralax as pt on a morphine pump Will monitor #HLD: Hold home statin and fibrate as may contribute to elevated CK and worsening myopathy. Will need f/u w/ PCP as OP for consideration of PCSK9i. BPH/LUTS: continue home meds Diet: Low sodium, DMII, FR 1800ml DVT prophylaxis: Lovenox CODE STATUS: DNR/DNI per POLST form Dispo: SNF Admission and Anticipated Discharge Date Admission Date: July 16, 2023 Subjective Patient seen and examined at bedside. Reports trying to keep up with arm exercises, Denies any chest pain, SOB or acute concerns at this time Had fever overnight, rt buttock wound painful, surrounding erythema present, yellow foul smelling drainage noted. will obtain cx, start atb, recall ID. Physical Exam Physical Exam: Respiratory: normal respiratory effort, lungs clear to auscultation Cardiovascular: RRR, no murmur, no edema Gastrointestinal (Abdomen): normal bowel sounds, soft, nontender, no hepatosplenomegaly 1+ BLE edema, on room air. 1-2+ LUE juliet a Rt buttock wound, had dressing, yellow pus/foul smelling/erythematous margins, painful. Results & Data Results & Data Vital Signs (Past 12 Hours) Vital Signs Temp Pulse Pulse Resp BP Pulse Ox O2 Del Method 08/26/23 15:07 36.5 C 63 20 128/53 L 95 Room Air 08/26/23 11:27 36.7 C 56 L 20 121/56 L 96 Room Air 08/26/23 09:45 Room Air 08/26/23 07:36 36.7 C 58 L 20 100/56 L 97 Room Air 08/26/23 07:31 63 08/26/23 03:42 37 C 63 16 106/56 L 94 Room Air
[2023-08-26] MEDS ORDERED: DAPTOmycin 450 MG in SYRINGE 0 ML IV SCH (15:45)
[2023-08-26] MEDS: CEFEPIME 2,000 MG in SYRINGE 0 ML IV SCH (17:38)
[2023-08-26] MEDS: DOXYCYCLINE HYCLATE 100 MG in DEXTROSE 5% MINI-B 100 ML IV SCH (17:38)
[2023-08-26] MEDS: TAMSULOSIN HCL 0.4 MG CAP PO SCH (22:08)
[2023-08-27] MEDS: CEFEPIME 2,000 MG in SYRINGE 0 ML IV SCH ×3 (00:17→17:17)
[2023-08-27] MEDS: DOXYCYCLINE HYCLATE 100 MG in DEXTROSE 5% MINI-B 100 ML IV SCH ×2 (05:40→17:16)
[2023-08-27 06:06] LABS: Hemoglobin 8.1 g/dl (14.0-18.0); Mean Corpuscular Hemoglobin 28.7 pg (25.0-34.0); Mean Corpuscular Hgb Conc 31.2 g/dL (32.0-36.0); Mean Corpuscular Volume 92.2 fL (80.0-100.0); Mean Platelet Volume 10.6 fL (9.4-12.4); Platelet Count 385 K/uL (130-400); RDW Coefficient of Variation 16.6 % (11.5-14.5); RDW Standard Deviation 57.1 fL (36.4-46.3); Red Blood Count 2.82 M/uL (4.70-6.10); White Blood Count 6.68 K/ul (4.8-10.8)
[2023-08-27 06:29] LABS: BUN Creatinine Ratio 94.7 (10-20); Calcium 8.9 mg/dl (8.6-10.3); Est GFR (African American) 87.2 ml/min; Est GFR (Non-African American) 75.2 ml/min
[2023-08-27] MEDS: POLYETHYLENE (MIRALAX) 17 GM PACK PO SCH (08:23)
[2023-08-27] MEDS: CLOPIDOGREL BISULFATE 75 MG TAB PO SCH (08:24)
[2023-08-27] MEDS: FERROUS SULFATE 325 MG TAB PO SCH (08:24)
[2023-08-27] MEDS: ADVANCED PROBIOTIC 1250 MG CAPSULE PO SCH (08:24)
[2023-08-27] MEDS: GABAPENTIN 300 MG CAP PO SCH ×3 (08:24→22:09)
[2023-08-27] MEDS: NYSTATIN OINT 15 GM TUBE EXT SCH ×2 (08:24→22:11)
[2023-08-27] MEDS: DOCUSATE SODIUM 100 MG CAP PO SCH ×2 (08:24→22:07)
[2023-08-27] MEDS: lisinopril 10 MG TAB PO SCH ×2 (08:24→22:10)
[2023-08-27] MEDS: PREGABALIN 50 MG CAP PO SCH ×2 (08:25→22:07)
[2023-08-27] MEDS: INSULIN ASPART PER UNIT CHARGE SC SCH ×4 (09:57→22:07)
--- NOTE | 2023-08-27 16:17 | Hospitalist Progress Note ---
Date of Service August 27, 2023 Assessment & Plan (1) Stroke-like episode: Plan: Mr. Yepez is an 83 year old gentleman with PMHx significant for chronic pain with morphine pump, DMII and BPH admitted for placement per family, after a few weeks of generalized progressive weakness, likely attributed to worsening myopathy and weakness after simultaneous UTI and herpes zoster infection in the setting of statin, fibrate therapy and allopurinol. Patient was noted to have lower extremity edema upon admission, which improved with IV diuresis. ECHO did not revealed diastolic dysfunction, but questionable PHTN. Further diuresis limited 2/2 SRAVANI, which is improving with cessation of lasix on 07/18. Patient with elevated CK since admission, IVF given fro 48 hours and stopped on 07/23 [facility] evaluated patient given chronic persistent lower back pain with new onset severe weakness in both of his legs. This was felt to be infection affecting his underlying failed laminectomy syndrome. No surgical intervention given complex comorbidities making patient poor candidate. Broadened coverage with zosyn on 07/22 2/2 fevers and clinically poor appearance--appears much better; notably lesion on buttock concerning for shingles recurrence. Discontinued Zosyn given negative infectious work up and pursue recurrent shingles treatment with contact precautions. Shingles treatment was escalated to IV acyclovir given concern for disseminated shingles. ID consulted and completed acyclovir 08/10. Consulted neurology. Initial suggestions included consideration for stopping statin, fibrate and allopurinol as all of these may contribute to myopathy (noted elevated CK, which is now normal). Patient's zoster lesions improved dramatically on exam; however, penile ulceration suspicious of necrosis from catheter. Urology assessed and recommended continuation of antibiotics for 1 week, which completed 08/15. Patient continued on CIC q 6h. Course has further been complicated by stroke-like episode, in which work up has been negative to date for stroke or other acute process; MRI negative for acute stroke. Given encephalopathy on EEG, consulted nephrology to review azotemia, in which no clear cause can be elucidated as it is likely multifactorial. Discussion with patient noted that he does have history of similar episodes, usually after awakening--given history of noncompliance with CPAP. He states he was taken off CPAP and transitioned to what seemed like nocturnal oxygen. Nocturnal study performed on 08/18 overnight did not reveal any hypoxic episodes (1 desat) that would warrant nocturnal o2. Patient remains admitted awaiting for placement. Now focused on keeping good spirits--encouraged exercise routine with "curls" and roof slater squeezes Pending placement. Wound care with aggressive management and repositioning of pressure ulcers. Patient with heart rates in 50s mostly, asymptomatic; however, low threshold to consult cardiology if sustained of symptomatic. No beds available as of yet for jail placement. #Deep Tissue injury, right buttock pressure ulcer #Left posterior heel pressure ulcer #Right posterior heel pressure ulcer -POA, see wound care -Management per wound care, new bed/low air loss/waffle boots -noted fould smelling drainage 08/26, had fever overnight of 08/25-08/26 -iv cefepime and doxy for now 08/26, wound culture and recall ID on Monday. Bl Cx sent. -follow results. #Asymptomatic Bradycardia #NSVT x1 1 episode of NSVT, continue to monitor on telemetry discontinue BB 10/27 not getting it for days given heart rates in high 50s, asymptomatic If recurrence, will consult Cards Potentially correlated to episode of "bad dream" reported by patient -Will resume dose reduced coreg with hold parameter <55; did not tolerate AV block noted on EKG--avoid BB -Patient asymptomatic, HR in 40s during sleep--shows chronotropic competence with increased movement of right upper extremity -Low threshold of Cardiology consult if symptomatic -No further episodes #Stroke-like episode "08/14/23 Suddenly became unresponsive. Last well know around 2pm.baseline minimal movement of b/l extremities. Wheel chair bound and nurses have to feed him. On morphine Pump. IM narcan 0.2mg as patient iv line not working. IT was 3:30pm by that time IM narcan didnot helped much. So stroke alert was ca lled.After CT scan was done patient woke up. Initially he was able to tell his name and knows his but thought he was in storage. Later could tell he is hospital.Jammie Stroke Neurologist evaluated the patient. As patient is mostly back to baseline except some confusion with dates thought probably medication related but wanted to do MRI head and also eeg for now and consult neurology in am. And to avoid sedatives.Held tramadol. Will monitor in med/tele for now." Remains at baseline EEG notable for encephalopathy. Brain MRI w/ no acute findings. Continue delirium precautions Nocturnal pulse oximetry unremarkable for hypoxia contributing to symptoms #Acute on chronic normocytic anemia *stable #GRETTA +Chronic inflammation anemia -Anemia labs ordered -Hemoccult negative -Given encephalopathy, BUN without cause, myopathy that seems unexplained to the degree of currently severity, will order myositis labs to r/o other eitologies--CK in rare cases has been normal in different inflammatory myopathies and warrants r/o -Progressive pressure ulcers likely contributing to occult losses -Anemia labs: low iron, TIBC, and transferrin,with normal ferritin (mixed GRETTA/chronic disease) -Continue Iron supplementation #Azotemia *fluctuating -No clear etiology, but noted to be uptrending since admission -Nephrology consulted to assess given issues with encephalopathy: -Completed doxycycline which can cause elevated BUN; no longer on fenofibrate/statin for >2 weeks -Avoid steroids -Hemoccult 08/16 negative -CK 31 -when off of doxy, bun still elevated, Hb has been stable. #. Lower extremity edema #. Left UE edema Pt with significant lower extremity edema and left UE edema Chest xray with noted cardiomegaly; Echo 60% EF, pHTN, LVH Swelling near resolved LE on exam but is present in his hands/upper extremities now, likely related to poor movement/weakness, no reported heart failure LUE doppler negative for acute process. Doppler US LLE with low suspicion for clot/ Completed course of antibiotics for presumptive cellulitis on admission. Encourage L U extremity elevation and ambulation OOB to chair as tolerated. Swelling exacerbated by poor mobility. FR 1800 ml; freq intermittent cath; increase protein content in diet. PO lasix on hold. Monitor and replete electrolytes. Mobilize LUE frequently, elevate above level of heart to help w/ swelling. currently not on diuretics #ASCVD CTA head Multifocal areas of moderate to severe stenosis within the intracranial vasculature as described above likely due to chronic atherosclerotic disease 1. Atherosclerotic plaque with foci of less than 50% stenosis involving both internal carotid arteries. 2. There is at least moderate focal stenosis of the mid right vertebral artery. 3. 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 -Added plavix, statin held 2/2 myopathy #Penile ulcer *resolved Purulent discharge noted on ulcer of foreskin near lawson catheter Urology consulted - suspect possible balanitis of the penis/foreskin which is likely both yeast and bacterial Wound culture MRSA--completed doxycycline EOT 08/15, mupirocin topically Continue CIC to prevent further foreskin compression/irritation q6h . Kandice Mcwilliams. #Ambulatory Dysfunction, myopathy #thoracic myelopathy #Failed Laminectomy syndrome Freq falls happening at home, pt with bruising on chest CK elevated, then downtrended CM consult for placement needs in this situation Ortho evaluated patient given left leg sensory loss and bilateral motor weakness: no surgical intervention given comorbidities stopped statin, fenofibrate and allopurinol and feels ? improved. Will likely need pcsk9i, pt to f/u w/ PCP office to initiate on this. Pt made aware. PT/OT Pending placement Need to continue turning patient q2h and helping to prevent breakdown on scrotum which is also swollen. Expect myopathy to be watermaster, but may improve over the next several weeks. Awaiting placement #Disseminated Zoster *resolved New lesions on buttock c/w herpes zoster , Airborne precautions VZV/HSV swabs of lesions obtained, pending since 08/03 Plan for 14 days total of IV if positive EOT 08/10 - completed course. [place] capsaicin cream for neuralgia lesions dries and crusted on exam. #Rhabdomyolysis *resolved [CK elevated on admission, improved with rehydration efforts and stopped statin, fibrate]. #SRAVANI over CKD stage III: GFR ranges in 40s since 2019. SRAVANI has improved. Monitor BMP as needed. #DMII, h/o: A1c of 7.4 on 07/17/2023. Sliding scale insulin in hospital.Will monitor #HTN: not getting coreg 2/2 heart rates, lisinopril 20mg bid, will adjust regimen as toleated. . #Chronic Pain Has morphine pump [facility] Consult placed to pain management for further pain management recs while in hosp Also on gabapentin, lyrica (noted both are gabapentinoids), cymbalta, tylenol for pain. Continue bowel regimen for chronic narcotic use- scheduled sennokot and metamucil, miralax ordered as pt on a pump Pain Consult placed on 07/16-no change in infusion worsened pain from shingles, gabapentin increased to 600mg TID and added PRN tramadol Pump filled 08/16/2023 by pain service with reduction 15% #Constipation Continue bowel regimen for chronic narcotic use Scheduled sennokot and metamucil, miralax as pt on a morphine pump Will monitor #HLD: Hold home statin and fibrate as may contribute to elevated CK and worsening myopathy. Will need f/u w/ PCP as OP for consideration of PCSK9i. BPH/LUTS: continue home meds Diet: Low sodium, DMII, FR 1800ml DVT prophylaxis: Lovenox CODE STATUS: DNR/DNI per POLST form Dispo: SNF Admission and Anticipated Discharge Date Admission Date: July 16, 2023 Subjective Patient seen and examined at bedside. Reports trying to keep up with arm exercises, Denies any chest pain, SOB or acute concerns at this time Had fever overnight of 08/25-08/26, afebrile now, on atb for rt buttock wound infxn, recall ID estela. Pt's son and DIL at bedside, updated them, answered all their questions. Physical Exam Physical Exam: Respiratory: normal respiratory effort, lungs clear to auscultation Cardiovascular: RRR, no murmur, no edema Gastrointestinal (Abdomen): normal bowel sounds, soft, nontender, no hepatosplenomegaly 1+ BLE edema, on room air. 1-2+ LUE juliet a Rt buttock wound, had dressing, yellow pus/foul smelling/erythematous margins, painful. Results & Data Results & Data Vital Signs (Past 12 Hours) Vital Signs Temp Pulse Pulse Resp BP Pulse Ox O2 Del Method 08/27/23 15:48 36.9 C 64 20 138/64 98 Room Air 08/27/23 15:23 69 08/27/23 11:43 36.5 C 74 20 144/62 H 97 Room Air 08/27/23 08:15 Room Air 08/27/23 07:45 36.4 C L 59 L 20 103/61 98 Room Air 08/27/23 07:28 70 08/27/23 04:50 Room Air
[2023-08-27] MEDS: TAMSULOSIN HCL 0.4 MG CAP PO SCH (22:10)
[2023-08-27] MEDS: METHOCARBAMOL 500 MG TABLET PO PRN (22:24)
[2023-08-28] MEDS: CEFEPIME 2,000 MG in SYRINGE 0 ML IV SCH ×3 (00:34→16:15)
[2023-08-28 03:47] LABS: Hematocrit (blood only) 25.6 % (42.0-52.0); Hemoglobin 8.1 g/dl (14.0-18.0); Mean Corpuscular Hemoglobin 28.8 pg (25.0-34.0); Mean Corpuscular Hgb Conc 31.6 g/dL (32.0-36.0); Mean Corpuscular Volume 91.1 fL (80.0-100.0); Mean Platelet Volume 10.2 fL (9.4-12.4); Platelet Count 395 K/uL (130-400); RDW Coefficient of Variation 16.6 % (11.5-14.5); RDW Standard Deviation 55.3 fL (36.4-46.3); Red Blood Count 2.81 M/uL (4.70-6.10); White Blood Count 5.99 K/ul (4.8-10.8)
[2023-08-28 03:57] LABS: BUN Creatinine Ratio 78.6 (10-20); Calcium 9.2 mg/dl (8.6-10.3); Creatinine Clr Calc Pharmacy 61.3 ml/min; Est GFR (African American) 70.5 ml/min; Est GFR (Non-African American) 60.8 ml/min; Magnesium 1.9 mg/dl (1.7-2.4); Potassium 4.9 mmol/L (3.5-5.1)
[2023-08-28] MEDS: DOXYCYCLINE HYCLATE 100 MG in DEXTROSE 5% MINI-B 100 ML IV SCH ×2 (05:08→16:15)
[2023-08-28] MEDS: METHOCARBAMOL 500 MG TABLET PO PRN ×2 (05:45→13:42)
[2023-08-28] MEDS: GABAPENTIN 300 MG CAP PO SCH ×3 (08:45→22:33)
[2023-08-28] MEDS: FERROUS SULFATE 325 MG TAB PO SCH (08:45)
[2023-08-28] MEDS: DOCUSATE SODIUM 100 MG CAP PO SCH ×2 (08:45→22:33)
[2023-08-28] MEDS: lisinopril 10 MG TAB PO SCH ×2 (08:45→22:33)
[2023-08-28] MEDS: ADVANCED PROBIOTIC 1250 MG CAPSULE PO SCH (08:45)
[2023-08-28] MEDS: NYSTATIN OINT 15 GM TUBE EXT SCH ×2 (08:46→22:34)
[2023-08-28] MEDS: CLOPIDOGREL BISULFATE 75 MG TAB PO SCH (08:46)
[2023-08-28] MEDS: POLYETHYLENE (MIRALAX) 17 GM PACK PO SCH (08:46)
[2023-08-28] MEDS: PREGABALIN 50 MG CAP PO SCH ×2 (08:52→23:01)
[2023-08-28] MEDS: INSULIN ASPART PER UNIT CHARGE SC SCH ×4 (08:53→23:00)
[2023-08-28] MEDS: ACETAMINOPHEN 325 MG TAB PO PRN (12:21)
--- NOTE | 2023-08-28 16:34 | Hospitalist Progress Note ---
Date of Service August 28, 2023 Assessment & Plan (1) Stroke-like episode: Plan: Mr. Yepez is an 83 year old gentleman with PMHx significant for chronic pain with morphine pump, DMII and BPH admitted for placement per family, after a few weeks of generalized progressive weakness, likely attributed to worsening myopathy and weakness after simultaneous UTI and herpes zoster infection in the setting of statin, fibrate therapy and allopurinol. Patient was noted to have lower extremity edema upon admission, which improved with IV diuresis. ECHO did not revealed diastolic dysfunction, but questionable PHTN. Further diuresis limited 2/2 SRAVANI, which is improving with cessation of lasix on 07/18. Patient with elevated CK since admission, IVF given fro 48 hours and stopped on 07/23 [facility] evaluated patient given chronic persistent lower back pain with new onset severe weakness in both of his legs. This was felt to be infection affecting his underlying failed laminectomy syndrome. No surgical intervention given complex comorbidities making patient poor candidate. Broadened coverage with zosyn on 07/22 2/2 fevers and clinically poor appearance--appears much better; notably lesion on buttock concerning for shingles recurrence. Discontinued Zosyn given negative infectious work up and pursue recurrent shingles treatment with contact precautions. Shingles treatment was escalated to IV acyclovir given concern for disseminated shingles. ID consulted and completed acyclovir 08/10. Consulted neurology. Initial suggestions included consideration for stopping statin, fibrate and allopurinol as all of these may contribute to myopathy (noted elevated CK, which is now normal). Patient's zoster lesions improved dramatically on exam; however, penile ulceration suspicious of necrosis from catheter. Urology assessed and recommended continuation of antibiotics for 1 week, which completed 08/15. Patient continued on CIC q 6h. Course has further been complicated by stroke-like episode, in which work up has been negative to date for stroke or other acute process; MRI negative for acute stroke. Given encephalopathy on EEG, consulted nephrology to review azotemia, in which no clear cause can be elucidated as it is likely multifactorial. Discussion with patient noted that he does have history of similar episodes, usually after awakening--given history of noncompliance with CPAP. He states he was taken off CPAP and transitioned to what seemed like nocturnal oxygen. Nocturnal study performed on 08/18 overnight did not reveal any hypoxic episodes (1 desat) that would warrant nocturnal o2. Patient remains admitted awaiting for placement. Now focused on keeping good spirits--encouraged exercise routine with "curls" and property field inspector squeezes Pending placement. Wound care with aggressive management and repositioning of pressure ulcers. Patient with heart rates in 50s mostly, asymptomatic; however, low threshold to consult cardiology if sustained of symptomatic. No beds available as of yet for [facility] placement. #Deep Tissue injury, right buttock pressure ulcer #Left posterior heel pressure ulcer #Right posterior heel pressure ulcer -POA, see wound care -Management per wound care, new bed/low air loss/waffle boots -noted fould smelling drainage 08/26, had fever overnight of 08/25-08/26 -iv cefepime and doxy for now 08/26, wound culture and recall ID on Monday. Bl Cx sent. -follow results. d/w ID, plan to monitor off of atb. #Asymptomatic Bradycardia #NSVT x1 1 episode of NSVT, continue to monitor on telemetry discontinue BB 10/27 not getting it for days given heart rates in high 50s, asymptomatic If recurrence, will consult Cards Potentially correlated to episode of "bad dream" reported by patient -Will resume dose reduced coreg with hold parameter <55; did not tolerate AV block noted on EKG--avoid BB -Patient asymptomatic, HR in 40s during sleep--shows chronotropic competence with increased movement of right upper extremity -Low threshold of Cardiology consult if symptomatic -No further episodes #Stroke-like episode "08/14/23 Suddenly became unresponsive. Last well know around 2pm.baseline minimal movement of b/l extremities. Wheel chair bound and nurses have to feed him. On morphine Pump. IM narcan 0.2mg as patient iv line not working. IT was 3:30pm by that time IM narcan didnot helped much. So stroke alert was called.After CT scan was done patient woke up. Initially he was able to tell his name and knows his but thought he was in storage. Later could tell he is hospital.Jammie Stroke Neurologist evaluated the patient. As patient is mostly back to baseline except some confusion with dates thought probably medication related but wanted to do MRI head and also eeg for now and consult neurology in am. And to avoid sedatives.Held tramadol. Will monitor in med/tele for now." Remains at baseline EEG notable for encephalopathy. Brain MRI w/ no acute findings. Continue delirium precautions Nocturnal pulse oximetry unremarkable for hypoxia contributing to symptoms #Acute on chronic normocytic anemia *stable #GRETTA +Chronic inflammation anemia -Anemia labs ordered -Hemoccult negative -Given encephalopathy, BUN without cause, myopathy that seems unexplained to the degree of currently severity, will order myositis labs to r/o other eitologies--CK in rare cases has been normal in different inflammatory myopathies and warrants r/o -Progressive pressure ulcers likely contributing to occult losses -Anemia labs: low iron, TIBC, and transferrin,with normal ferritin (mixed GRETTA/chronic disease) -Continue Iron supplementation #Azotemia *fluctuating -No clear etiology, but noted to be uptrending since admission -Nephrology consulted to assess given issues with encephalopathy: -Completed doxycycline which can cause elevated BUN; no longer on fenofibrate/statin for >2 weeks -Avoid steroids -Hemoccult 08/16 negative -CK 31 -when off of doxy, bun still elevated, Hb has been stable. #. Lower extremity edema #. Left UE edema Pt with significant lower extremity edema and left UE edema Chest xray with noted cardiomegaly; Echo 60% EF, pHTN, LVH Swelling near resolved LE on exam but is present in his hands/upper extremities now, likely related to poor movement/weakness, no reported heart failure LUE doppler negative for acute process. Doppler US LLE with low suspicion for clot/ Completed course of antibiotics for presumptive cellulitis on admission. Encourage L U extremity elevation and ambulation OOB to chair as tolerated. Swelling exacerbated by poor mobility. FR 1800 ml; freq intermittent cath; increase protein content in diet. PO lasix on hold. Monitor and replete electrolytes. Mobilize LUE frequently, elevate above level of heart to help w/ swelling. currently not on diuretics #ASCVD CTA head Multifocal areas of moderate to severe stenosis within the intracranial vasculature as described above likely due to chronic atherosclerotic disease 1. Atherosclerotic plaque with foci of less than 50% stenosis involving both internal carotid arteries. 2. There is at least moderate focal stenosis of the mid right vertebral artery. 3. 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 -Added plavix, statin held 2/2 myopathy #Penile ulcer *resolved Purulent discharge noted on ulcer of foreskin near lawson catheter Urology consulted - suspect possible balanitis of the penis/foreskin which is likely both yeast and bacterial Wound culture MRSA--completed doxycycline EOT 08/15, mupirocin topically Continue CIC to prevent further foreskin compression/irritation q6h . Lawson DC'd. #Ambulatory Dysfunction, myopathy #thoracic myelopathy #Failed Laminectomy syndrome Freq falls happening at home, pt with bruising on chest CK elevated, then downtrended CM consult for placement needs in this situation Ortho evaluated patient given left leg sensory loss and bilateral motor weakness: no surgical intervention given comorbidities stopped statin, fenofibrate and allopurinol and feels ? improved. Will likely need pcsk9i, pt to f/u w/ PCP office to initiate on this. Pt made aware. PT/OT Pending placement Need to continue turning patient q2h and helping to prevent breakdown on scrotum which is also swollen. Expect myopathy to be chcf, but may improve over the next several weeks. Awaiting placement #Disseminated Zoster *resolved New lesions on buttock c/w herpes zoster , Airborne precautions VZV/HSV swabs of lesions obtained, pending since 08/03 Plan for 14 days total of IV if positive EOT 08/10 - completed course. [place] capsaicin cream for neuralgia lesions dries and crusted on exam. #Rhabdomyolysis *resolved [CK elevated on admission, improved with rehydration efforts and stopped statin, fibrate]. #SRAVANI over CKD stage III: GFR ranges in 40s since 2019. SRAVANI has improved. Monitor BMP as needed. #DMII, h/o: A1c of 7.4 on 07/17/2023. Sliding scale insulin in hospital.Will monitor #HTN: not getting coreg 2/2 heart rates, lisinopril 20mg bid, will adjust regimen as toleated. . #Chronic Pain Has morphine pump managed by [facility] Pain management Consult placed to pain management for further pain management recs while in hosp Also on gabapentin, lyrica (noted both are gabapentinoids), cymbalta, tylenol for pain. Continue bowel regimen for chronic narcotic use- scheduled sennokot and metamucil, miralax ordered as pt on a pump Pain Consult placed on 07/16-no change in infusion worsened pain from shingles, gabapentin increased to 600mg TID and added PRN tramadol Pump filled 08/16/2023 by pain service with reduction 15% #Constipation Continue bowel regimen for chronic narcotic use Scheduled sennokot and metamucil, miralax as pt on a morphine pump Will monitor #HLD: Hold home statin and fibrate as may contribute to elevated CK and worsening myopathy. Will need f/u w/ PCP as OP for consideration of PCSK9i. BPH/LUTS: continue home meds Diet: Low sodium, DMII, FR 1800ml DVT prophylaxis: Lovenox CODE STATUS: DNR/DNI per POLST form Dispo: SNF Admission and Anticipated Discharge Date Admission Date: July 16, 2023 Subjective Patient seen and examined at bedside. Reports trying to keep up with arm exercises, Denies any chest pain, SOB or acute concerns at this time Had fever overnight of 08/25-08/26, afebrile now, d/w ID plan to monitor off of atb for now. Physical Exam Physical Exam: Respiratory: normal respiratory effort, lungs clear to auscultation Cardiovascular: RRR, no murmur, no edema Gastrointestinal (Abdomen): normal bowel sounds, soft, nontender, no hepatosplenomegaly 1+ BLE edema, on room air. 1-2+ LUE juliet a Rt buttock wound, had dressing Results & Data Results & Data Vital Signs (Past 12 Hours) Vital Signs Temp Pulse Pulse Resp BP Pulse Ox O2 Del Method 08/28/23 16:29 36.5 C 64 16 118/67 96 Room Air 08/28/23 15:15 66 08/28/23 13:01 Room Air 08/28/23 11:46 36.9 C 65 16 130/67 98 Room Air 08/28/23 07:56 36.8 C 73 16 117/61 96 Room Air 08/28/23 07:49 63
[2023-08-28] MEDS: TAMSULOSIN HCL 0.4 MG CAP PO SCH (22:33)
[2023-08-29] MEDS: ACETAMINOPHEN 325 MG TAB PO PRN (03:43)
[2023-08-29] MEDS: POLYETHYLENE (MIRALAX) 17 GM PACK PO SCH (09:17)
[2023-08-29] MEDS: METHOCARBAMOL 500 MG TABLET PO PRN ×3 (09:18→20:47)
[2023-08-29] MEDS: FERROUS SULFATE 325 MG TAB PO SCH (09:19)
[2023-08-29] MEDS: DOCUSATE SODIUM 100 MG CAP PO SCH ×2 (09:19→20:44)
[2023-08-29] MEDS: ADVANCED PROBIOTIC 1250 MG CAPSULE PO SCH (09:19)
[2023-08-29] MEDS: CLOPIDOGREL BISULFATE 75 MG TAB PO SCH (09:19)
[2023-08-29] MEDS: GABAPENTIN 300 MG CAP PO SCH ×3 (09:20→20:45)
[2023-08-29] MEDS: NYSTATIN OINT 15 GM TUBE EXT SCH ×2 (09:20→20:46)
[2023-08-29] MEDS: lisinopril 10 MG TAB PO SCH ×2 (09:20→20:45)
[2023-08-29] MEDS: PREGABALIN 50 MG CAP PO SCH ×2 (09:24→20:46)
[2023-08-29] MEDS: INSULIN ASPART PER UNIT CHARGE SC SCH ×4 (09:24→20:43)
--- NOTE | 2023-08-29 16:43 | Hospitalist Progress Note ---
Date of Service August 29, 2023 Assessment & Plan (1) Stroke-like episode: Plan: Mr. Yepez is an 83 year old gentleman with PMHx significant for chronic pain with morphine pump, DMII and BPH admitted for placement per family, after a few weeks of generalized progressive weakness, likely attributed to worsening myopathy and weakness after simultaneous UTI and herpes zoster infection in the setting of statin, fibrate therapy and allopurinol. Patient was noted to have lower extremity edema upon admission, which improved with IV diuresis. ECHO did not revealed diastolic dysfunction, but questionable PHTN. Further diuresis limited 2/2 SRAVANI, which is improving with cessation of lasix on 07/18. Patient with elevated CK since admission, IVF given fro 48 hours and stopped on 07/23 [facility] evaluated patient given chronic persistent lower back pain with new onset severe weakness in both of his legs. This was felt to be infection affecting his underlying failed laminectomy syndrome. No surgical intervention given complex comorbidities making patient poor candidate. Broadened coverage with zosyn on 07/22 2/2 fevers and clinically poor appearance--appears much better; notably lesion on buttock concerning for shingles recurrence. Discontinued Zosyn given negative infectious work up and pursue recurrent shingles treatment with contact precautions. Shingles treatment was escalated to IV acyclovir given concern for disseminated shingles. ID consulted and completed acyclovir 08/10. Consulted neurology. Initial suggestions included consideration for stopping statin, fibrate and allopurinol as all of these may contribute to myopathy (noted elevated CK, which is now normal). Patient's zoster lesions improved dramatically on exam; however, penile ulceration suspicious of necrosis from catheter. Urology assessed and recommended continuation of antibiotics for 1 week, which completed 08/15. Patient continued on CIC q 6h. Course has further been complicated by stroke-like episode, in which work up has been negative to date for stroke or other acute process; MRI negative for acute stroke. Given encephalopathy on EEG, consulted nephrology to review azotemia, in which no clear cause can be elucidated as it is likely multifactorial. Discussion with patient noted that he does have history of similar episodes, usually after awakening--given history of noncompliance with CPAP. He states he was taken off CPAP and transitioned to what seemed like nocturnal oxygen. Nocturnal study performed on 08/18 overnight did not reveal any hypoxic episodes (1 desat) that would warrant nocturnal o2. Patient remains admitted awaiting for placement. 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 Wound care with aggressive management and repositioning of pressure ulcers. Patient with heart rates in 50s mostly, asymptomatic; however, low threshold to consult cardiology if sustained of symptomatic. No beds available as of yet for retirement placement. #Deep Tissue injury, right buttock pressure ulcer #Left posterior heel pressure ulcer #Right posterior heel pressure ulcer -POA, see wound care -Management per wound care, new bed/low air loss/waffle boots -noted foul smelling drainage 08/26, had fever overnight of 08/25-08/26 -iv cefepime and doxy 08/26, Wound Cx and Bl Cx sent. d/w ID 08/28, monitoring off of atb for now -afebrile so far. will follow. -follow results. #Asymptomatic Bradycardia #NSVT x1 1 episode of NSVT, continue to monitor on telemetry discontinue BB / not getting it for days given heart rates in high 50s, asymptomatic If recurrence, will consult Cards Potentially correlated to episode of "bad dream" reported by patient -Will resume dose reduced coreg with hold parameter <55; did not tolerate AV block noted on EKG--avoid BB -Patient asymptomatic, HR in 40s during sleep--shows chronotropic competence with increased movement of right upper extremity -Low threshold of Cardiology consult if symptomatic -No further episodes #Stroke-like episode "08/14/23 Suddenly became unresponsive. Last well know around 2pm.baseline minimal movement of b/l extremities. Wheel chair bound and nurses have to feed him. On morphine Pump. IM narcan 0.2mg as patient iv line not working. IT was 3:30pm by that time IM narcan didnot helped much. So stroke alert was called.After CT scan was done patient woke up. Initially he was able to tell his name and knows his but thought he was in storage. Later could tell he is hospital.[place] [facility] Neurologist evaluated the patient. As patient is mostly back to baseline except some confusion with dates thought probably medication related but wanted to do MRI head and also eeg for now and consult neurology in am. And to avoid sedatives.Held tramadol. Will monitor in med/tele for now." Remains at baseline EEG notable for encephalopathy. Brain MRI w/ no acute findings. Continue delirium precautions Nocturnal pulse oximetry unremarkable for hypoxia contributing to symptoms #Acute on chronic normocytic anemia *stable #GRETTA +Chronic inflammation anemia -Anemia labs ordered -Hemoccult negative -Given encephalopathy, BUN without cause, myopathy that seems unexplained to the degree of currently severity, will order myositis labs to r/o other eitologies--CK in rare cases has been normal in different inflammatory myopathies and warrants r/o -Progressive pressure ulcers likely contributing to occult losses -Anemia labs: low iron, TIBC, and transferrin,with normal ferritin (mixed GRETTA/chronic disease) -Continue Iron supplementation #Azotemia *fluctuating -No clear etiology, but noted to be uptrending since admission -Nephrology consulted to assess given issues with encephalopathy: -Completed doxycycline which can cause elevated BUN; no longer on fenofibrate/statin for >2 weeks -Avoid steroids -Hemoccult 08/16 negative -CK 31 -when off of doxy, bun still elevated, Hb has been stable. #. Lower extremity edema #. Left UE edema Pt with significant lower extremity edema and left UE edema Chest xray with noted cardiomegaly; Echo 60% EF, pHTN, LVH Swelling near resolved LE on exam but is present in his hands/upper extremities now, likely related to poor movement/weakness, no reported heart failure LUE doppler negative for acute process. Doppler US LLE with low suspicion for clot/ Completed course of antibiotics for presumptive cellulitis on admission. Encourage L U extremity elevation and ambulation OOB to chair as tolerated. Swelling exacerbated by poor mobility. FR 1800 ml; freq intermittent cath; increase protein content in diet. PO lasix on hold. Monitor and replete electrolytes. Mobilize LUE frequently, elevate above level of heart to help w/ swelling. currently not on diuretics #ASCVD CTA head Multifocal areas of moderate to severe stenosis within the intracranial vasculature as described above likely due to chronic atherosclerotic disease 1. Atherosclerotic plaque with foci of less than 50% stenosis involving both internal carotid arteries. 2. There is at least moderate focal stenosis of the mid right vertebral artery. 3. 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 -Added plavix, statin held 2/2 myopathy #Penile ulcer *resolved Purulent discharge noted on ulcer of foreskin near lawson catheter Urology consulted - suspect possible balanitis of the penis/foreskin which is likely both yeast and bacterial Wound culture MRSA--completed doxycycline EOT 08/15, mupirocin topically Continue CIC to prevent further foreskin compression/irritation q6h . Kandice GONZALES'tereza. #Ambulatory Dysfunction, myopathy #thoracic myelopathy #Failed Laminectomy syndrome Freq falls happening at home, pt with bruising on chest CK elevated, then downtrended CM consult for placement needs in this situation Ortho evaluated patient given left leg sensory loss and bilateral motor weakness: no surgical intervention given comorbidities stopped statin, fenofibrate and allopurinol and feels ? improved. Will likely need [id number], pt to f/u w/ PCP office to initiate on this. Pt made aware. PT/OT Pending placement Need to continue turning patient q2h and helping to prevent breakdown on scrotum which is also swollen. Expect myopathy to be retirement, but may improve over the next several weeks. Awaiting placement #Disseminated Zoster *resolved New lesions on buttock c/w herpes zoster , Airborne precautions VZV/HSV swabs of lesions obtained, pending since 08/03 Plan for 14 days total of IV if positive EOT 08/10 - completed course. [place] capsaicin cream for neuralgia lesions dries and crusted on exam. #Rhabdomyolysis *resolved [CK elevated on admission, improved with rehydration efforts and stopped statin, fibrate]. #SRAVANI over CKD stage III: GFR ranges in 40s since 2019. SRAVANI has improved. Monitor BMP as needed. #DMII, h/o: A1c of 7.4 on 07/17/2023. Sliding scale insulin in hospital.Will monitor #HTN: not getting coreg 2/2 heart rates, lisinopril 20mg bid, will adjust regimen as toleated. . #Chronic Pain [facility] Consult placed to pain management for further pain management recs while in hosp Also on gabapentin, lyrica (noted both are gabapentinoids), cymbalta, tylenol for pain. Continue bowel regimen for chronic narcotic use- scheduled sennokot and metamucil, miralax ordered as pt on a pump Pain Consult placed on 07/16-no change in infusion worsened pain from shingles, gabapentin increased to 600mg TID and added PRN tramadol Pump filled 08/16/2023 by pain service with reduction 15% #Constipation Continue bowel regimen for chronic narcotic use Scheduled sennokot and metamucil, miralax as pt on a morphine pump Will monitor #HLD: Hold home statin and fibrate as may contribute to elevated CK and worsening myopathy. Will need f/u w/ PCP as OP for consideration of [id number]. BPH/LUTS: continue home meds Diet: Low sodium, DMII, FR 1800ml DVT prophylaxis: Lovenox CODE STATUS: DNR/DNI per POLST form Dispo: SNF Admission and Anticipated Discharge Date Admission Date: July 16, 2023 Subjective Patient seen and examined at bedside. Reports trying to keep up with arm exercises, Denies any chest pain, SOB or acute concerns at this time Had fever overnight of 08/25-08/26, afebrile now, d/w ID 08/28 - plan to monitor off of atb for now. Physical Exam Physical Exam: Respiratory: normal respiratory effort, lungs clear to auscultation Cardiovascular: RRR, no murmur, no edema Gastrointestinal (Abdomen): normal bowel sounds, soft, nontender, no hepatosplenomegaly 1+ BLE edema, on room air. 1-2+ LUE juliet a Rt buttock wound, + dressing Results & Data Results & Data Vital Signs (Past 12 Hours) Vital Signs Temp Pulse Pulse Resp BP Pulse Ox O2 Del Method 08/29/23 16:11 36.4 C L 64 16 138/63 96 Room Air 08/29/23 16:07 62 08/29/23 11:49 36.4 C L 71 16 124/62 98 Room Air 08/29/23 11:34 Room Air 08/29/23 07:56 36.5 C 65 16 126/79 95 Room Air 08/29/23 07:14 60
[2023-08-29] MEDS: TAMSULOSIN HCL 0.4 MG CAP PO SCH (20:46)
[2023-08-30 07:56] VITALS: RESP 16
--- NOTE | 2023-08-30 09:48 | Discharge Summary ---
Discharge Summary Date of Service August 30, 2023 Notes For Next Care Provider Medication Changes From Visit -Discontinued rosuvastatin, fenofibrate -Discontinue farxiga -Discontinue allopurinol -Discontinue ozempic -Discontinue tresiba -Discontinue duloxetine -Discontinue coreg 2/2 bradycardia -Started ASA and plavix -Increased gabapentin 600mg TID -Started on methocarbamol for spasm Admission HPI Per Admitting Provider Pt is an 83yoM with PMHx significant for chronic pain with morphine pump, DMII and BPH admitted for placement per family, needing 3 people at home to help move him. History obtained from pt and son and daughter at bedside. They note that he was recently diagnosed with shingles and has been on medication for that. States that they have increasingly been noticing a decline, where he previously required 2 people to assist with movements and positional changes, and now he requires 3. They note that he was recently taken off of lasix due a concern ab out his kidney function but his leg swelling has icnreased since then. No Hx of blood clots. They note frequent falls at home now as well. Sometimes having to lay down for some time as there is no one to help him. They state that pt has a home health nurse who comes in to help and she recommended that he go to the ED for further evaluation. They note a Hx of chronic pain, multiple back surgeries for which he has a morphine pump in place. EPIC chart review shows outside records from [facility] that note that medications have been added recently to help with his pain. Admission Exam Per Admitting Provider General: Alert, oriented. No acute distress Skin: noted bruising on anterior chest Psych: Appropriate mood and affect Neuro: difficulty with movement in general and hands HEENT: NC/AT Chest: Nontender to palpation. CV: RR Resp: Breath sounds clear bilaterally, no increased effort of breathing. Abdomen: Soft, nontender Extremities: edema in lower extremities bilaterally, left leg painful and red as well Principal Dx & Hospital Course #1 = Principal Diagnosis (1) Stroke-like episode: Mr. Yepez is an 83 year old gentleman with PMHx significant for chronic pain with morphine pump, DMII and BPH admitted for placement per family, after a few weeks of generalized progressive weakness, likely attributed to worsening myopathy and weakness after simultaneous UTI and herpes zoster infection in the setting of statin, fibrate therapy and allopurinol. Patient was noted to have lower extremity edema upon admission, which improved with IV diuresis. ECHO did not revealed diastolic dysfunction, but questionable PHTN. Further diuresis limited 2/2 SRAVANI, which is improving with cessation of lasix on 07/18. Patient with elevated CK since admission, IVF given fro 48 hours and stopped on 07/23 [facility] evaluated patient given chronic persistent lower back pain with new onset severe weakness in both of his legs. This was felt to be infection affecting his underlying failed laminectomy syndrome. No surgical intervention given complex comorbidities making patient poor candidate. Broadened coverage with zosyn on 07/22 2/2 fevers and clinically poor appearance--appears much better; notably lesion on buttock concerning for shingles recurrence. Discontinued Zosyn given negative infectious work up and pursue recurrent shingles treatment with contact precautions. Shingles treatment was escalated to IV acyclovir given concern for disseminated shingles. ID consulted and completed acyclovir 08/10. Consulted neurology. Initial suggestions included consideration for stopping statin, fibrate and allopurinol as all of these may contribute to myopathy (noted elevated CK, which is now normal). Patient's zoster lesions improved dramatically on exam; however, penile ulceration suspicious of necrosis from catheter. Urology assessed and recommended continuation of antibiotics for 1 week, which completed 08/15. Patient continued on CIC q 6h. Course has further been complicated by stroke-like episode, in which work up has been negative to date for stroke or other acute process; MRI negative for acute stroke. Given encephalopathy on EEG, consulted nephrology to review azotemia, in which no clear cause can be elucidated as it is likely multifactorial. Discussion with patient noted that he does have history of similar episodes, usually after awakening--given history of noncompliance with CPAP. He states he was taken off CPAP and transitioned to what seemed like nocturnal oxygen. Nocturnal study performed on 08/18 overnight did not reveal any hypoxic episodes (1 desat) that would warrant nocturnal o2. Patient remains admitted awaiting for placement. Now focused on keeping good spirits--encouraged exercise routine with "curls" and staff auditor squeezes Pending placement. Wound care with aggressive management and repositioning of pressure ulcers. Patient with heart rates in 50s mostly, asymptomatic; however, low threshold to consult cardiology if sustained of symptomatic. Patient's course prolonged by search for assisted placement. #Deep Tissue injury, right buttock pressure ulcer #Left posterior heel pressure ulcer #Right posterior heel pressure ulcer -POA, see wound care -Management per wound care, new bed/low air loss/waffle boots -Afebrile on day of dishcharge #Asymptomatic Bradycardia #NSVT x1 1 episode of NSVT, continue to monitor on telemetry -Patient asymptomatic, HR in 40s during sleep--shows chronotropic competence with increased movement of right upper extremity -Avoid BB #Stroke-like episode "08/14/23 Suddenly became unresponsive. Last well know around 2pm.baseline minimal movement of b/l extremities. Wheel chair bound and nurses have to feed him. On morphine Pump. IM narcan 0.2mg as patient iv line not working. IT was 3:30pm by that time IM narcan didnot helped much. So stroke alert was called.After CT scan was done patient woke up. Initially he was able to tell his name and knows his but thought he was in storage. Later could tell he is hospital.[place] [facility] Neurologist evaluated the patient. As patient is mostly back to baseline except some confusion with dates thought probably medication related but wanted to do MRI head and also eeg for now and consult neurology in am. And to avoid sedatives.Held tramadol. Will monitor in med/tele for now." Remains at baseline EEG notable for encephalopathy. Brain MRI w/ no acute findings. Continue delirium precautions Nocturnal pulse oximetry unremarkable for hypoxia contributing to symptoms #Acute on chronic normocytic anemia *stable #GRETTA +Chronic inflammation anemia -Hemoccult negative -Progressive pressure ulcers likely contributing to occult losses -Anemia labs: low iron, TIBC, and transferrin,with normal ferritin (mixed GRETTA/chronic disease) -Continue Iron supplementation #Azotemia *fluctuating -No clear etiology, but noted to be uptrending since admission -Nephrology consulted to assess given issues with encephalopathy: -Completed doxycycline which can cause elevated BUN; no longer on fenofibrate/statin for >2 weeks -Avoid steroids -Hemoccult 08/16 negative -CK 31 -when off of doxy, bun still elevated, Hb has been stable. #. Lower extremity edema #. Left UE edema Pt with significant lower extremity edema and left UE edema Chest xray with noted cardiomegaly; Echo 60% EF, pHTN, LVH Swelling near resolved LE on exam but is present in his hands/upper extremities now, likely related to poor movement/weakness, no reported heart failure LUE doppler negative for acute process. Doppler US LLE with low suspicion for clot/ Completed course of antibiotics for presumptive cellulitis on admission. Encourage L U extremity elevation and ambulation OOB to chair as tolerated. Swelling exacerbated by poor mobility. FR 1800 ml; freq intermittent cath; increase protein content in diet. Monitor and replete electrolytes. Mobilize LUE frequently, elevate above level of heart to help w/ swelling. currently not on diuretics #ASCVD CTA head Multifocal areas of moderate to severe stenosis within the intracranial vasculature as described above likely due to chronic atherosclerotic disease 1. Atherosclerotic plaque with foci of less than 50% stenosis involving both internal carotid arteries. 2. There is at least moderate focal stenosis of the mid right vertebral artery. 3. 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 -Continue plavix #Penile ulcer *resolved Purulent discharge noted on ulcer of foreskin near lawson catheter Urology consulted - suspect possible balanitis of the penis/foreskin which is likely both yeast and bacterial Wound culture MRSA--completed doxycycline EOT 08/15, mupirocin topically Continue CIC to prevent further foreskin compression/irritation q6h #Ambulatory Dysfunction, myopathy #thoracic myelopathy #Failed Laminectomy syndrome Freq falls happening at home, pt with bruising on chest CK elevated, then downtrended CM consult for placement needs in this situation Ortho evaluated patient given left leg sensory loss and bilateral motor weakness: no surgical intervention given comorbidities stopped statin, fenofibrate and allopurinol and feels ? improved. Will likely need pcsk9i, pt to f/u w/ PCP office to initiate on this. Pt made aware. #Disseminated Zoster *resolved New lesions on buttock c/w herpes zoster , Airborne precautions VZV/HSV swabs of lesions obtained, pending since 08/03 Plan for 14 days total of IV if positive EOT 08/10 - completed course. Lesions healed on discharge #Rhabdomyolysis *resolved [CK elevated on admission, improved with rehydration efforts and stopped statin, fibrate]. #SRAVANI over CKD stage III*resolved: GFR ranges in 40s since 2019. SRAVANI has improved. Monitor BMP as needed. #DMII, h/o: A1c of 7.4 on 07/17/2023. Issues with hypoglycemia, will continue SSI as op while placed #HTN: not getting coreg 2/2 heart rates, lisinopril 20mg bid, will adjust regimen as tolerated. . #Chronic Pain Has morphine pump managed by [facility] Pain management Consult placed to pain management for further pain management recs while in hosp Also on gabapentin, lyrica (noted both are gabapentinoids), cymbalta, tylenol for pain. Continue bowel regimen for chronic narcotic use- scheduled sennokot and metamucil, miralax ordered as pt on a pump Pain Consult placed on 07/16-no change in infusion worsened pain from shingles, gabapentin increased to 600mg TID and added PRN tramadol Pump filled 08/16/2023 by pain service with reduction 15% #Constipation Continue bowel regimen for chronic narcotic use Scheduled sennokot and metamucil, miralax as pt on a morphine pump Will monitor #HLD: Hold home statin and fibrate as may contribute to elevated CK and worsening myopathy. Will need f/u w/ PCP as OP for consideration of PCSK9i. BPH/LUTS: continue home meds On day of discharge, patient states he has good appetite and denies any acute concerns. He notes he is nervous for the transition but feels he is at baseline and ready to "transition" Discharge Exam Constitutional WD/WN, vitals as above Musculoskeletal moves right arm, flexes, unable to resist against gravity, drops immediately; unable to flex/extend left arm,slight twtching of fingers able to flex knees, unable to lift legs off of bed Updated Medication List Medication Instructions Recorded Confirmed Type fenofibrate nanocrystallized 145 145 mg PO QPM 05/22/19 07/16/23 History mg tablet tamsulosin 0.4 mg capsule 0.4 mg PO HS #90 caps 06/10/20 07/16/23 Rx mineral oil 30 ml PO QPM 05/07/21 07/16/23 History multivitamin 1 tab PO QAM 05/07/21 07/16/23 History psyllium husk 3.4 gram/5.4 gram 1 tbsp PO QAM 05/07/21 07/16/23 History oral powder (Metamucil) MoRPHine PAIN PUMP 1 pump intrathecal UD #1 unit 04/27/22 07/16/23 Rx naloxone 4 mg/actuation nasal 1 spray intranasal Q3M PRN opioid 04/27/22 07/16/23 Rx spray (Narcan) overdose #2 ea acetaminophen 650 mg 650 - 1,300 mg PO Q8H 12/02/22 07/16/23 History tablet,extended release (Tylenol 8 Hour) aspirin 81 mg tablet,delayed 81 mg PO QAM 12/21/22 07/16/23 History release (Aspir-) L.acidop,casei,lactis,rham-B.lact,ada 2 cap PO DAILY #30 caps 08/30/23 Rx 625 mg (10 billion cell) capsule (Advanced Probiotic) clopidogrel 75 mg tablet 75 mg PO QAM 30 days #30 tabs 08/30/23 Rx docusate sodium 100 mg capsule 100 mg PO BID #60 caps 08/30/23 Rx ferrous sulfate 325 mg (65 mg 325 mg PO QAM #30 tabs 08/30/23 Rx iron) tablet,delayed release gabapentin 300 mg capsule 600 mg (2 x 300 mg) PO TID #180 08/30/23 07/16/23 Rx caps insulin lispro 100 unit/mL 1 sliding scale dose subcut 08/30/23 Rx subcutaneous pen USEASDIRECTD #15 mL lisinopril 10 mg tablet 10 mg PO BID #60 tabs 08/30/23 Rx methocarbamol 500 mg tablet 500 mg PO TID PRN spasm 30 days 08/30/23 Rx #90 tabs nystatin 100,000 unit/gram topical 1 applic EXT BID #30 grams 08/30/23 Rx ointment polyethylene glycol 3350 17 gram 17 g PO DAILY #30 ea 08/30/23 Rx oral powder packet (Miralax) pregabalin 50 mg capsule (Lyrica) 50 mg PO BID #60 caps 08/30/23 Rx sennosides 8.6 mg tablet (Natural 8.6 mg PO BID #60 tabs 08/30/23 07/16/23 Rx Senna Laxative) sodium phosphates 19 gram-7 132 ml [place] DAILY PRN constipation 08/30/23 Rx gram/118 mL enema (Enema #133 mL Disposable) Hospital Stay Data Consultations 07/16/23 16:19 ED Decision to Admit Stat 07/16/23 23:33 Consult Pain Management Routine 07/21/23 11:34 Consult Orthopedic Spine Surgery Routine 07/27/23 18:22 Consult Neurology Routine 07/31/23 15:26 Consult Infectious Diseases Routine 08/04/23 11:00 Consult Urology Routine 08/15/23 08:00 Consult Neurology Routine 08/16/23 08:19 Consult Nephrology Routine Diagnostic Imagining Performed 07/16/23 18:30 US venous doppler LE LT Stat 07/19/23 14:30 US venous duplex arm [US venous doppler UE LT] Routine 08/14/23 15:32 CT head/brain wo con Stat CTA head w con [CT angio head w con] Stat CTA neck with con [CT angio neck with con] Stat 08/15/23 06:15 MR brain wo con Routine Pending Results Patient Have Any Pending Studies at Discharge: No Discharge Instructions Given to Patient (Per Discharging Provider) Mr. Yepez is an 83 year old gentleman with PMHx significant for chronic pain with morphine pump, DMII and BPH admitted for placement per family, after a few weeks of generalized progressive weakness, likely attributed to worsening myopathy and weakness after simultaneous UTI and herpes zoster infection in the setting of statin, fibrate therapy and allopurinol. Patient was noted to have lower extremity edema upon admission, which improved with IV diuresis. Further diuresis limited due to kidney function SRAVANI, which is improving with cessation of lasix on 07/18. Ortho-spine evaluated patient given chronic persistent lower back pain with new onset severe weakness in both of his legs. Patient's course complicated by herpes zoster infection, penile ulceration due to lawson catether, and episodes of encephalopathy. Patient completed course for disseminated herpes zoster. Patient is undergoing clean intermittent catheterization every six hours with improvement of penile ulcer. Additionally, stroke work up and encephalopathy work up did not yield any signs of stroke or etiology of episode. #Deep Tissue injury, right buttock pressure ulcer #Left posterior heel pressure ulcer #Right posterior heel pressure ulcer -POA, see wound care -Management per wound care, new bed/low air loss/waffle boots -Afebrile, continue pressure off loading as able #Asymptomatic Bradycardia #NSVT x1 1 episode of NSVT, continue to monitor on telemetry; Potentially correlated to episode of "bad dream" reported by patient -Patient asymptomatic, HR in 40s during sleep--shows chronotropic competence with increased movement of right upper extremity -Discontinued home Coreg #Stroke-like episode Remains at baseline EEG notable for encephalopathy. Brain MRI w/ no acute findings. Continue delirium precautions Nocturnal pulse oximetry unremarkable for hypoxia contributing to symptoms #GRETTA +Chronic inflammation anemia -Progressive pressure ulcers likely contributing to occult losses -Anemia labs: low iron, TIBC, and transferrin,with normal ferritin (mixed GRETTA/chronic disease) -Continue Iron supplementation #Azotemia *fluctuating -No clear etiology, but noted to be uptrending since admission -Nephrology consulted to assess given issues with encephalopathy: -Completed doxycycline which can cause elevated BUN; no longer on fenofibrate/s tatin for >2 weeks #Lower extremity edema #Left UE edema Chest xray with noted cardiomegaly; Echo 60% EF, pHTN, LVH Swelling near resolved LE on exam but is present in his hands/upper extremities now, likely related to poor movement/weakness, no reported heart failure LUE doppler negative for acute process. Doppler US LLE with low suspicion for clot/ Completed course of antibiotics for presumptive cellulitis on admission. Encourage L U extremity elevation and ambulation OOB to chair as tolerated. Swelling exacerbated by poor mobility. FR 1800 ml; freq intermittent cath; increase protein content in diet. Monitor and replete electrolytes. Mobilize LUE frequently, elevate above level of heart to help w/ swelling. currently not on diuretics #ASCVD CTA head Multifocal areas of moderate to severe stenosis within the intracranial vasculature as described above likely due to chronic atherosclerotic disease 1. Atherosclerotic plaque with foci of less than 50% stenosis involving both internal carotid arteries. 2. There is at least moderate focal stenosis of the mid right vertebral artery. 3. 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 -Added plavix, statin held 2/2 myopathy #Penile ulcer *resolved Purulent discharge noted on ulcer of foreskin near lawson catheter Urology consulted - suspect possible balanitis of the penis/foreskin which is likely both yeast and bacterial Wound culture MRSA--completed doxycycline EOT 08/15, mupirocin topically Continue CIC to prevent further foreskin compression/irritation q6h . Kandice Mcwilliams. #Ambulatory Dysfunction, myopathy #thoracic myelopathy #Failed Laminectomy syndrome Freq falls happening at home, pt with bruising on chest CK elevated, then downtrended CM consult for placement needs in this situation Ortho evaluated patient given left leg sensory loss and bilateral motor weakness: no surgical intervention given comorbidities stopped statin, fenofibrate and allopurinol #Disseminated Zoster *resolved New lesions on buttock c/w herpes zoster , Airborne precautions VZV/HSV swabs of lesions obtained, pending since 08/03 Plan for 14 days total of IV if positive EOT 08/10 - completed course. [place] capsaicin cream for neuralgia healed areas on back, no further blisters/crusted area #Rhabdomyolysis *resolved [CK elevated on admission, improved with rehydration efforts and stopped statin, fibrate]. #SRAVANI over CKD stage III: GFR ranges in 40s since 2019. SRAVANI has improved. Monitor BMP as needed. #DMII, h/o: A1c of 7.4 on 07/17/2023. Sliding scale insulin to continue. #HTN: not getting coreg 2/2 heart rates, lisinopril 20mg bid #Chronic Pain Has morphine pump managed by [facility] Pain management Consult placed to pain management for further pain management recs while in hosp Also on gabapentin, lyrica (noted both are gabapentinoids), cymbalta, tylenol for pain. Continue bowel regimen for chronic narcotic use- scheduled sennokot and metamucil, miralax ordered as pt on a pump Pain Consult placed on 07/16-no change in infusion worsened pain from shingles, gabapentin increased to 600mg TID and added PRN methocarbamol Pump filled 08/16/2023 by pain service with reduction 15% #Constipation Continue bowel regimen for chronic narcotic use Scheduled sennokot and metamucil, miralax as pt on a morphine pump Total Time Total Time Spent Total Time Spent (In Minutes): 65
[2023-08-30] MEDS: POLYETHYLENE (MIRALAX) 17 GM PACK PO SCH (09:49)
[2023-08-30] MEDS: DOCUSATE SODIUM 100 MG CAP PO SCH (09:49)
[2023-08-30] MEDS: GABAPENTIN 300 MG CAP PO SCH (09:49)
[2023-08-30] MEDS: FERROUS SULFATE 325 MG TAB PO SCH (09:50)
[2023-08-30] MEDS: CLOPIDOGREL BISULFATE 75 MG TAB PO SCH (09:50)
[2023-08-30] MEDS: METHOCARBAMOL 500 MG TABLET PO PRN (09:50)
[2023-08-30] MEDS: ADVANCED PROBIOTIC 1250 MG CAPSULE PO SCH (09:50)
[2023-08-30] MEDS: lisinopril 10 MG TAB PO SCH (09:50)
[2023-08-30] MEDS: NYSTATIN OINT 15 GM TUBE EXT SCH (09:51)
[2023-08-30] MEDS: INSULIN ASPART PER UNIT CHARGE SC SCH (09:55)
[2023-08-30] MEDS: PREGABALIN 50 MG CAP PO SCH (09:56)
[2023-08-30 11:47] VITALS: PULSE 69; TEMP 98.1; O2SAT 94
[2023-08-30 13:01] VITALS: BP 147/64
[2023-08-30] MEDS: ACETAMINOPHEN 325 MG TAB PO PRN (13:04)
--- NOTE | 2023-09-01 13:51 | Coding Query ---
CODING QUERY To promote full compliance with coding requirements relating to patient care, provider participation is requested in all cases of team assembler uncertainty. Please assist us with the question(s) below: Coding Question(s): There is documentation of Encephalopathy starting on the 08/16 Progress Note and through the Discharge Summary. Please specify below, in your clinical opinion, the most likely cause of Encephalopathy. ( ) Encephalopathy, most likely cause specified - Please Specify ( x ) Encephalopathy with unknown likely cause Physician's Response(s): Thank you Vee Valladares Principal Diagnosis: "that condition established after study, to be chiefly responsible for occasioning the admission of the patient to the hospital for care." Co-Existing Principal Diagnosis: "when two or more diagnoses equally meet the criteria for principal diagnosis as determined by the circumstances of admission, diagnostic work up, and/or therapy provided, and the Alphabetic Index, Tabular List, or another coding guideline does not provide sequencing direction, any one of the diagnoses may be sequenced first." "When the physician has documented what appears to be a current diagnosis in the body of the record, but has not included the diagnosis in the final diagnostic statement, the physician should be asked whether the diagnosis should be added." (Source Coding [facility] 2 QTR90. p3-4) JOSE
== END 2023-08-30 13:32 | DRG 92 ==
LOC: ED 13:30 → SUATTDRO 18:21 → EDINP 18:21 → 2W 20:44 → 3E 08-02 18:09 → 2W 08-14 19:52